=== PATIENT | female | born 1970 | race Caucasian/White ===

== ENCOUNTER → 2021-06-16 08:29 | Outpatient (CLI) | payer OTHER, SELFPAY ==
--- NOTE | 2021-06-16 08:40 | EKG12_ITS ---
Test Reason : PREOP Blood Pressure : / mmHG Vent. Rate : 078 BPM Atrial Rate : 078 BPM P-R Int : 138 ms QRS Dur : 080 ms QT Int : 374 ms P-R-T Axes : 050 004 024 degrees QTc Int : 426 ms Normal sinus rhythm Normal ECG Confirmed by NALINI GALLEGOS, YULIA ([id number]), editorial project manager ROSA WINTER ([id number]) on 06/17/2021 7:34:25 AM Referred By: Iwona Cope Confirmed By:YULIA GAYLE MD
--- NOTE | 2021-06-16 08:58 | RAD_ITS ---
STUDY: X-RAY CHEST REASON FOR EXAM: Female, 50 years old. Preoperative x-ray TECHNIQUE: PA and lateral views of the chest. COMPARISON: None. FINDINGS: The lungs are clear and expanded. There is no demonstrated pleural abnormality. Normal size heart. Normal mediastinum and dameon. Normal visualized pulmonary arteries. Normal visualized aortic arch and descending thoracic aorta. Normal visualized thoracic spine. Normal visualized ribs, clavicles, and shoulders. There is no demonstrated abnormality of the visualized soft tissue structures of the upper abdomen. RAD/Chest PA and Lateral IMPRESSION: Normal x-ray examination of the chest. Electronically Signed: Kellen Alejandra MD at 12:44 EDT Tel , Service support ,
[2021-06-16 09:26] LABS: Absolute Lymphocyte Count 1.82 X10^3/uL (0.83-4.51); Basophil# 0.04 X10^3/uL; Basophil% 0.5 % (0-1); Eosinophil# 0.12 X10^3/uL; Eosinophils% 1.4 % (0-5); Hematocrit 40.7 % (37-47); Hemoglobin 13.3 g/dL (12.0-15.0); Lymphocyte # 1.82 X10^3/ul (0.83-4.51); Lymphocyte % 20.8 % (19-41); Mean Corp Hgb Conc 32.7 g/dL (32-36); Mean Corpuscular Hgb 29.3 pg (27.0-32.0); Mean Corpuscular Volume 89.6 fL (81-99); Mean Platelet Vol. 10.5 fl (6.2-12.0); Monocyte# 0.78 X10^3/uL; Monocyte% 8.9 % (0-10); NRBC Flagged by Analyzer 0 % (0-5); Neutrophil # 5.98 X10^3/uL (2.7-7.7); Neutrophil % 68.2 % (47-70); Platelet Count 288 K/mm3 (150-450); RBC Distribution Width CV 14.4 % (11.6-14.6); RBC Distribution Width SD 47.7 fl (35.1-43.9); Red Blood Count 4.54 M/mm3 (4.2-5.4); White Blood Count 8.8 K/mm3 (4.4-11.0)
[2021-06-16 10:00] LABS: Anion Gap 6 (5-15); BUN 21 mg/dL (7-18); BUN/Creat Ratio 24.6 RATIO (10-20); Calcium,Total 8.9 mg/dL (8.5-10.1); Chloride 106 mmol/L (98-107); Creatinine, Serum 0.85 mg/dL (0.55-1.02); EST Glomerular Filtration Rate 74 mL/min (>60); Est Glom Filt Rate - Afr Amer 90 mL/min (>60); Glucose 95 mg/dL (74-106); Potassium 3.8 mmol/L (3.5-5.1); Sodium Level 140 mmol/L (136-145)
== END ==
PROVIDERS: PCP Family Medicine; Referring Provider Physician Assistant Surgical; Visit Provider Physician Assistant Surgical
DX: Z01.818 Encounter for other preprocedural examination (principal); Z01.810 Encounter for preprocedural cardiovascular examination; Z01.811 Encounter for preprocedural respiratory examination; Z11.59 Encounter for screening for other viral diseases
CPT/HCPCS: 36415; 71046; 80048; 85025; 87635; 93005; C9803; U0005; U0003

== ENCOUNTER → 2023-10-18 | Outpatient (CLI) | payer OTHER, SELFPAY ==
--- NOTE | 2023-10-18 07:23 | CT_ITS ---
CT RIGHT LOWER EXTREMITY WITH 3-D IMAGING CLINICAL INDICATION: OSTEOARTHRITIS RIGHT KNEE *CARYN PROTOCOL* TECHNIQUE: Axial CT images of the right lower extremity (including right hip, right knee, and right ankle) was performed without IV contrast material. Coronal and sagittal reformats were provided. RADIATION DOSAGE (If Supplied By Facility): CTDIvol = ( 19.3 ) mGy, DLP = ( 1355.62 ) mGycm COMPARISON: No relevant prior comparison study available. FINDINGS: Bones: Unremarkable right hip joint. There is tricompartment degenerative arthrosis of the right knee, most severe in the medial femorotibial compartment, where there is joint space narrowing, marginal osteophyte formation, and subchondral sclerosis. Unremarkable right ankle. Osseous structures are normal without evidence of fracture or dislocation. No lytic or blastic osseous masses. Soft Tissues: There is a tiny right knee joint effusion. The deep soft tissue structures are unremarkable. The superficial soft tissues are unremarkable without evidence of edema, hematoma, or foreign body. CT/Extremity Lower without Contra IMPRESSION: Tricompartment degenerative arthrosis of the right knee, most severe in the medial femorotibial compartment. Tiny right knee joint effusion. Electronically Signed: Slava Casey MD at 8:09 EST ,
--- OUTSIDE RECORDS SUMMARY | 2023-10-18 07:23 | XMS RPT_ITS | CCD ---
Author Name Unknown Address [address] [place] [address] Organization [facility] Care Team Providers Care [employer] Officer Name Role Phone DENNY DAVIS DO Admitting Unavailable DENNY DAVIS DO Attending Unavailable DENNY DAVIS DO Primary Care Unavailable TICO YUAN Consulting Unavailable TICO YUAN Referring Unavailable PROVIDER, UNKNOWN Consulting Unavailable PROVIDER, UNKNOWN Consulting Unavailable PROVIDER, UNKNOWN Consulting Unavailable TICO YUAN Consulting Unavailable AVILA WARNER DR Attending Unavailable AVILA WARNER DR Primary Care Unavailable AVILA WARNER DR Admitting Unavailable PROVIDER, UNKNOWN Consulting Unavailable PROVIDER, UNKNOWN Consulting Unavailable PROVIDER, UNKNOWN Consulting Unavailable Tico Yuan MD Unavailable [facility] hand, . . Unavailable Dr. Víctor Leslie DDS Unavailable [facility], . [facility] office Unavailable Vincenzo GALLEGOS, Dr. Bullard ([facility]) A Unavail able [facility] Unavailable Angela SALVADOR, Liliane Unavailable Ankit DEAN, Ayesha Dangelo Unavailable Katya Almaraz LPN Unavailable Unavailable Walter Shepherd MD Unavailable Keenan Solo PA-C Unavailable [phone] Grace Garcia MA Unavailable Unavailable Lili Downey LPN Unavailable Unavailable Damian CAMPBELL, Denise Velez Unavailable Unavaila Sabine Bergman PA-C Unavailable Naye Valdez Unavailable Heather Lauren LPN Unavailable Unavailab dionne Mcleod MA Lili Unavailable Unavailable Brando SALVADOR, Soumya Unavailable Unavailabl e Unavailable Unavailable Medications Current Medications Medication Drug Class(es) Dates Sig (Normalized) Sig (Original) Ascorbic Acid (1 source) Vitamin C Vitamin C ; angela y benzonatate 100 mg oral capsule (1 source) Non-narcotic Antitussive Start: 10-14-2022 Tessalon Perles 100 mg capsule ; 1 (one) capsule three times daily as needed for cough for 0 days Quantity: 30 {Capsule} Refills: 0 Ordered: 14-Oct-2022 PHIL Garcia Start: 14-Oct-2022 Comments: Medication taken as needed. swallow whole Completed/Discontinued Medications Medication Drug Class(es) Dates Sig (Normalized) Sig (Original) ALPRAZolam 1 mg oral tablet (2 sources) Benzodiazepine Start: 11-17-2016 End: 12-24-2020 take 1 tablet by mouth three times daily as needed Xanax 1 MG Oral Tablet ; 1 (one) Tablet three times a day as needed for 0 days Quantity: 90 {Tablet} Refills: 0 Ordered: 24-Dec-2020 MODESTO Lauren Heather John Start: 17-Nov-2016 End: 24-Dec-2020 Status: Inactive Comments: Medication taken as needed. wmOARRS 11/17/16 Problems Active Problems Problem Classification Problem Date Documented Da te Episodic/Chronic Acute bronchitis (2 sources) Acute bronchitis; Translations: [Acute bronchitis, unspecified] 11-21-2015 Episodic Anxiety disorders (9 sources) Generalized anxiety disorder; Translations: [Generalized anxiety disorder] 04-02-2023 Chronic Chronic obstructive pulmonary disease and bronchiectasis (5 sources) Bronchitis; Translations: [Bronchitis, not specified as acute or chronic] 02-07-2020 Episodic Headache; including migraine (2 sources) Migraine; Translations: [Migraine, unspecified, not intractable, without status migrainosus] 04-02-2023 Chronic Joint disorders and dislocations; trauma-related (3 sources) Dislocation of temporomandibular joint; Translations: [Dislocation of jaw, unspecified side, initial encounter] 02-07-2020 Episodic Malaise and fatigue (2 sources) Fatigue; Translations: [Other fatigue] 04-21-2022 Episodic Menopausal disorders (7 sources) Disorder associated with menstruation AND/OR menopause; Translations: [Unspecified menopausal and perimenopausal disorder] 04-02-2023 Chronic Mood disorders (2 sources) Depressive disorder; Translations: [Depressive disorder, not elsewhere classified] 06-27-2012 Chronic Open wounds of extremities (2 sources) Laceration of finger; Translations: [Laceration without foreign body of unspecified finger without damage to nail, initial encounter] 12-20-2020 Episodic Other aftercare (7 sources) Long-term (current) use of other medications 04-01-2012 Episodic Other eye disorders (3 sources) Disorder of eyelid; Translations: [Unspecified disorder of eyelid] 04-07-2022 Episodic Other female genital disorders (3 sources) Other disorders of menstruation and other abnormal bleeding from female genital tract 04-07-2022 Chronic Other injuries and conditions due to external causes (3 sources) Injury of ankle; Translations: [Unspecified injury of unspecified ankle, initial encounter] 02-07-2020 Episodic Other lower respiratory disease (2 sources) Cough; Translations: [Cough] 04-02-2023 Episodic Other nervous system disorders (2 sources) Ulnar neuropathy; Translations: [Lesion of ulnar nerve, unspecified upper limb] 12-29-2012 Chronic Other nutritional; endocrine; and metabolic disorders (2 sources) Obesity; Translations: [Obesity, unspecified] 04-07-2022 Chronic Other screening for suspected conditions (not mental disorders or infectious disease) (2 sources) Patient encounter status; Translations: [Encounter for screening for lipoid disorders] 04-02-2023 Episodic Other skin disorders (2 sources) Eruption; Translations: [Rash and other nonspecific skin eruption] 04-07-2022 Episodic Other skin disorders (3 sources) Skin lesion; Translations: [Disorder of the skin and subcutaneous tissue, unspecified] 02-07-2020 Episodic Other upper respiratory infections (9 sources) Maxillary sinusitis; Translations: [Chronic maxillary sinusitis] 12-29-2012 Chronic Other upper respiratory infections (3 sources) Acute sinusitis; Translations: [Acute sinusitis, unspecified] 09-26-2010 Episodic Residual codes; unclassified (2 sources) Colon cancer screening declined; Translations: [Procedure and treatment not carried out because of patient's decision for unspecified reasons] 04-02-2023 Episodic Residual codes; unclassified (3 sources) Insomnia; Translations: [Insomnia, unspecified] 12-29-2012 Episodic Residual codes; unclassified (2 sources) Mammogram declined; Translations: [Procedure and treatment not carried out because of patient's decision for unspecified reasons] 06-04-2022 Episodic Unclassified (1 source) Number of Children 04-02-2023 Past or Other Problems Problem Classification Problem Date Documented Da te Episodic/Chronic Unclassified (1 source) Headache - The onset of the headache has been acute and has been occurring in a persistent pattern for 3 days. The course has been increasing in severity. The headache is characterized as severe, pounding, throbbing and a pressure sensation. The headache is experienced any time of the day (no diurnal variation). The headache is described as being located in the left side. The symptoms are aggravated by noise, bright light, fatigue, reading and neck movement, but not by alcohol or trauma. The symptoms have been associated with depression, eye pain, flashing lights, migraine in the past (Patient reports a history of migraines that have been poorly controlled with OTC medications. She reports a migraine as often as once a week.), nausea, neck pain, neck stiffness and vomiting, while the symptoms have not been associated with anxiety, blurring of vision, confusion, ear pain, eye congestion, fever, focal neurological deficit, head trauma, hypertension, insomnia, myalgias, nasal discharge/stuffy nose, sore throat, swelling over temporal areas, tenderness over sinuses, tenderness over temporal areas, unilateral numbness or vertigo. Note for Headache : Patient has been using ice packs and Excedrin with no relief of symptoms. 04-02-2023 Unclassified (1 source) Cold Symptoms - Symptoms include sneezing, nasal congestion, sore throat, dry cough and wheezing, but do not include ear pain, fever, chills or headache. The onset was sudden 1 month(s) ago. The symptoms occur constantly. The patient describes this as moderate in severity and unchanged (cough is getting slightly better). Current treatment includes non-prescription cold medication. 10-14-2022 Unclassified (1 source) Cough - The onset of the cough has been acute and has been occurring in a persistent pattern for 4 days. The course has been increasing. The cough is characterized as dry. The cough occurs mainly at night. Associated symptoms include nasal congestion, sinus discharge, sinus pressure and sore throat. Note for Cough : Was started on cephalexin this weekend. 09-15-2022 Unclassified (1 source) Mediation consultation - Stopped Prempro 4 months ago. Started with migraines, hot flashes, weight gain. Would like to go back on Prempro. The cost was too high, tried supplements but this was not successdful. 04-07-2022 Unclassified (1 source) Menopause - The onset of menopause has been acute and has been occurring in an intermittent pattern for 10 years. The course has been increasing. The symptoms are described as moderate. The first day of the last menstrual period was : (years ago). The symptoms include flushing, sweating, headaches, vaginal dryness, depression, anxiety and insomnia. Note for Menopause : Has been gaining weight. reviewed by [facility] 12-24-2020 Unclassified (1 source) Skin lesion - The skin lesion has been occurring for 1 month. It has been increasing in size. The lesion is characterized as red and raised above the skin. The lesion is located on the neck (on the left side). Note for Skin lesion : Has noticed that her gland on the left side of neck is larger than the right side. Area will be painful if touched or apply pressure. Will be itchy at times. States that for the past few years if she is out in the sun, will get welts on her upper chest. reviewed by [facility] 12-20-2020 Unclassified (1 source) Follow up consultation - The patient is here to follow-up after Emergency Room/Urgent Care ([facility] with laceration to the distal volar right index finger.) on : (02-03-20). Note for Consultation follow-up : She was started on ATBx but got diarhea with first 2 doses so she stopped it. 02-07-2020 Unclassified (1 source) Jaw pain - The onset of the jaw pain has been sudden (pt was eating a piece of pizza last wednesday and her jaw locked up on the left side) and has been occurring in a persistent pattern for 1 week. The course has been constant. The pain affects the left side of jaw . Note for Jaw pain : Patient was seen by her Dentist, was advised to try heat compress and take Tylenol/Ibuprofen. Pt has also taken leftover muscle relaxer that has helped to relieve the pain. Is unable to bite down completely on the left side of mouth. The left cheek is swollen and tender to touch.She has had problems since she was young with jaw locking at times. She will wiggle her jaw and unlock it. 01-06-2019 Unclassified (1 source) Ankle pain - The onset of the ankle pain has been acute and has been occurring in a persistent pattern for 5 weeks. The course has been constant. The pain is characterized as a moderate sharp stabbing. The pain is in the left ankle and is described as being located in the entire ankle. The pain is aggravated by physical activity and stairs. Note for Ankle pain : Went to ER a few days after injury and was diagnosed with ankle sprain. Her foot was visbly deformed and she had to move it back into place . 05-31-2018 Unclassified (1 source) Cold Symptoms - Symptoms include sneezing, nasal congestion, runny nose, ear fullness, scratchy throat, dry cough, productive cough, general malaise, headache and facial pain, but do not include purulent discharge, ear pain, fever or chills. The onset was gradual 1 week(s) ago. The symptoms occur constantly. The patient describes this as moderate in severity and worsening. Current treatment includes acetaminophen and NSAIDs. Risk factors include smoking. The patient has been exposed to an individual with similar symptoms. Medical history includes seasonal allergies, but patient denies history of asthma or tonsillectomy. Note for Upper respiratory infection : reviewed by B 01-22-2017 Unclassified (1 source) Cold Symptoms - Symptoms include sneezing, nasal congestion, runny nose, ear pain (off and on), sore throat, dry cough (dry later in the day), productive cough (productive in the morning) and headache, but do not include fever, chills, general malaise or facial pain. The onset was gradual 3 month(s) ago. The symptoms occur constantly. The patient describes this as moderate in severity and worsening. Note for Upper respiratory infection : Was treated 11-21-15 for bronchitis with Cephalexin. Symptoms improved slightly at that time but never completely cleared up. reviewed by [facility] 01-15-2016 Unclassified (1 source) Cold Symptoms - Symptoms include nasal congestion, runny nose, ear fullness, sore throat, dry cough, chills and headache. The onset was sudden 1 week(s) ago. The symptoms occur constantly. The patient describes this as moderate in severity and worsening. Current treatment includes an oral decongestant. Risk factors include smoking, but do not include child in daycare. The patient has been exposed to an individual with similar symptoms and an individual with strep. 11-21-2015 Unclassified (1 source) Punch Biopsy - Pt here for punch biopsy of lesion on lateral aspect of right lower leg. Has had spot for about 1 year. It has gotten bigger/ She states that the color changes throughout the day. It will start out as clear and then by end of day it is red. It has never bled. see previous. 09-16-2015 Unclassified (1 source) Preoperative Clearance - Surgical procedure(s) planned: other (Bilateral Upper Lid Blephs). Date of procedure: (March 29, 2015) Surgeon: (Harinder Rodgers) and Location of procedure: ([facility] [place]) There have been no problems with general anesthesia or blood/blood products. Prosthetics include eye glasses. Note for Pre-operative clearance : reviewed by [facility] 03-15-2015 Unclassified (1 source) Eye Symptoms - The onset of the eye symptoms has been acute and has been occurring in an increasing pattern for months. The course has been gradually worsening. The eye symptoms are described as moderate and involve the left eye. The symptoms are described as pain and swelling. Note for Eye symptoms : reviewed by [facility] 12-11-2014 Unclassified (1 source) Preoperative Clearance - Date of procedure: (08-10-13) Surgeon: (Dr Lawrence) and Location of procedure: ([facility]) There have been no problems with general anesthesia or blood/blood products. Prosthetics include eye glasses. Note for Pre-operative clearance : Would also like to discuss medication change for depression. Is currently on Prozac 40mg. Depression is getting worse and has had increased fatigue. Is also gaining weight. Lexapro and cymbalta were tried int hepast but did not work well. 07-26-2013 Unclassified (1 source) Cold Symptoms - Symptoms include nasal congestion, runny nose, ear pain, ear fullness, sore throat, scratchy throat, hoarseness, productive cough, fever (102 yesterday.), chills, general malaise, headache and facial pain. The onset was sudden 3 day(s) ago. The symptoms occur constantly. The patient describes this as moderate in severity and worsening. The patient is not currently being treated for this problem. The patient has been exposed to an individual with an upper respiratory infection (At work.). Medical history includes seasonal allergies, but patient denies history of asthma. Note for Upper respiratory infection : reviewed by [facility] 02-28-2013 Unclassified (1 source) Cold Symptoms - Symptoms include sneezing, nasal congestion, runny nose, sore throat, productive cough and facial pain (pressure), but do not include fever or chills. The onset was gradual 5 day(s) ago. The symptoms occur constantly. The patient describes this as moderate in severity and worsening. Current treatment includes allergy medications. The patient has been exposed to an individual with similar symptoms. Medical history includes seasonal allergies and recurrent sinusitis, but patient denies history of recurrent strep pharyngitis, asthma, tonsillectomy or recurrent ear infections. Note for Upper respiratory infection : reviewed by [facility] 06-27-2012 Unclassified (1 source) Cold Symptoms - Symptoms include sneezing, nasal congestion, runny nose (nasal drainage is clear), ear pain (left), ear fullness, sore throat (left side), productive cough (phlegm is green and very thick) and facial pain, but do not include fever or headache. The onset was sudden 4 day(s) ago. The symptoms occur constantly. The patient describes this as moderate in severity and worsening. Current treatment includes non-prescription cold medication (sinus daytime and nightime, belinda-D, aleve, and cheryl seltzer). 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 Medical history includes seasonal allergies and recurrent sinusitis, but patient denies history of recurrent strep pharyngitis or asthma. 11-26-2011 Unclassified (1 source) Irregular bleeding - Started spotting 3 days ago along with abdominal cramping. Has not had a peroid for 5 years. Pt had an ablation due to heavy bleeding. No cancer history. No other menopausal sx. PAPs have always been normal ( last one was 09/15/10 ) 09-25-2011 Unclassified (1 source) Hand pain - The onset of the hand pain has been sudden following no specific incident and has been occurring in a persistent pattern for 6 weeks. The course has been worsening. The hand pain is characterized as a moderate sharp stabbing. The hand pain is described as being located in the ulnar aspect of hand, ring finger and small finger. The hand pain is aggravated by physical activity. The symptoms have been associated with muscle swelling. 12-29-2010 Unclassified (1 source) Well adult female - Patient has not had a cholesterol screening. There has been no glucose screening. Patient has not had a Zostavax vaccine. Patient has not had a Pneumovax vaccine. Patient has not received a recent influenza vaccine. Patient has not been immunized against Tetanus. Note for Well adult female : pt is here for yearly exam, is not having period after procedure that was done in 2006. pt has no complaints at this time Had labs done at work and says cholesterol was good 09-15-2010 Unclassified (1 source) [ADDITIONAL REASON] Cold Symptoms - Symptoms include ear pain (swollen, sore glands), but do not include fever. The onset was gradual 3 day(s) ago. The patient describes this as worsening. The patient is not currently being treated for this problem. 09-15-2010 Results Test Name Value Interpretation Reference Range Facil ity Vital Signs Date Time Vital Sign Value Performing Clinician Jael fitch 04-02-2023 10:24-0400 Body height 157.48 cm Grace Garcia MA [facility], [facility]. 04-02-2023 10:24-0400 Body mass index (BMI) [Ratio] 37.91 kg/m2 Grace Garcia MA [facility], [facility]. 04-02-2023 10:24-0400 Body surface area Derived from formula 1.94 m2 Grace Garcia MA [facility], [facility]. 04-02-2023 10:24-0400 Body weight 94.01 kg Grace Garcia MA [facility], [facility].; [facility] 04-02-2023 10:24-0400 Diastolic blood pressure 86 mm[Hg] Grace Garcia MA [facility], [facility].; [facility], [facility]. Encounters Encounter Date Encounter Type Care Provider Facility Start: 04-02-2023 End: 04-02-2023 Office outpatient visit 15 minutes Tico Yuan MD Work Phone: [facility]. Start: 10-14-2022 End: 10-14-2022 Office outpatient visit 15 minutes Tico Yuan MD Work Phone: [facility]. Start: 09-15-2022 End: 09-15-2022 Office outpatient visit 15 minutes Tico Yuan MD Work Phone: [facility]. Start: 06-30-2022 End: 06-30-2022 Medication Tico Yuan MD Work Phone: [facility]. Start: 06-04-2022 End: 06-03-2022 Erroneous Entry Tico Yuan MD Work Phone: [facility] Start: 06-04-2022 End: 06-04-2022 Patient encounter procedure Tico Yuan MD Work Phone: [facility]; [facility]. Start: 06-04-2022 End: 06-04-2022 Periodic preventive med est patient 40-64yrs Tico Yuan MD Work Phone: [facility]. Start: 04-21-2022 End: 04-21-2022 Orders Tico Yuan MD Work Phone: [facility]. Start: 04-07-2022 End: 04-07-2022 Office outpatient visit 10 minutes Tico Yuan MD Work Phone: [facility] Start: 04-01-2021 End: 04-01-2021 ambulatory TICO YUAN [facility] Start: 12-25-2020 End: 12-25-2020 Medication Tico Yuan MD Work Phone: [facility] Start: 12-24-2020 End: 12-24-2020 Office outpatient visit 15 minutes Tico Yuan MD Work Phone: [facility]. Start: 12-20-2020 End: 12-20-2020 Office outpatient visit 15 minutes Tico Yuan MD Work Phone: [facility]. Start: 02-07-2020 End: 02-07-2020 Office outpatient visit 15 minutes Tico Yuan MD Work Phone: [facility]. Start: 02-07-2020 End: 02-07-2020 Telephone follow-up Tico Yuan MD Work Phone: [facility]. Start: 02-03-2020 End: 02-03-2020 Emergency department patient [facility] Start: 01-09-2019 End: 01-09-2019 Orders Tico Yuan MD Work Phone: [facility]. Start: 01-06-2019 End: 01-06-2019 Office outpatient visit 15 minutes Tico Yuan MD Work Phone: [facility]. Start: 06-07-2018 End: 06-07-2018 Orders Tico Yuan MD Work Phone: [facility]. Start: 05-31-2018 End: 05-31-2018 Office outpatient visit 15 minutes Tico Yuan MD Work Phone: [facility]. Start: 04-28-2018 End: 04-28-2018 Telephone follow-up Tico Yuan MD Work Phone: [facility]. Start: 01-22-2017 End: 01-22-2017 Office outpatient visit 15 minutes Tico Yuan MD Work Phone: [facility] [facility] Start: 01-15-2016 End: 01-15-2016 Office outpatient visit 15 minutes Tico Yuan MD Work Phone: [facility] [facility] Start: 11-21-2015 End: 11-21-2015 Medication Tico Yuan MD Work Phone: [facility]. Start: 11-21-2015 End: 11-21-2015 Office outpatient visit 15 minutes Tico Yaun MD Work Phone: [facility]. Start: 09-16-2015 End: 09-16-2015 Office outpatient visit 15 minutes Tico Yuan MD Work Phone: [facility] Start: 09-13-2015 End: 09-13-2015 Office outpatient visit 15 minutes Tico Yuan MD Work Phone: [facility]. Start: 08-19-2015 End: 08-19-2015 Medication Tico Yuan MD Work Phone: [facility]. Start: 03-15-2015 End: 03-15-2015 Office outpatient visit 15 minutes Tico Yuan MD Work Phone: [facility] Start: 03-15-2015 End: 03-15-2015 Pre-operative examination, unspecified Tico Yuan MD Work Phone: [facility].; [facility]. Start: 12-11-2014 End: 12-11-2014 Orders Tico Yuan MD Work Phone: [facility]. Start: 12-11-2014 End: 12-11-2014 Office outpatient visit 15 minutes Tico Yuan MD Work Phone: [facility]. Start: 02-12-2014 End: 02-12-2014 Medication Tico Yuan MD Work Phone: [facility]. Start: 02-12-2014 End: 02-12-2014 Medication Tico Yuan MD Work Phone: [facility]. Start: 01-23-2014 End: 01-23-2014 Medication Tico Yuan MD Work Phone: [facility]. Start: 10-30-2013 End: 10-30-2013 Medication Tico Yuan MD Work Phone: [facility]. Start: 07-26-2013 End: 07-26-2013 Patient encounter procedure Tico Yuan MD Work Phone: [facility] Start: 07-26-2013 End: 07-26-2013 Pre-operative examination, unspecified Tico Yuan MD Work Phone: [facility]. Start: 02-28-2013 End: 02-28-2013 Patient encounter procedure Tico Yuan MD Work Phone: [facility]. Start: 12-23-2012 End: 12-23-2012 Medication Tico Yuan MD Work Phone: [facility]. Start: 06-27-2012 End: 06-27-2012 Patient encounter procedure Tico Yuan MD Work Phone: [facility]. Start: 04-01-2012 End: 04-01-2012 Medication Tico Yuan MD Work Phone: [facility]. Start: 12-29-2011 End: 12-29-2011 Medication Tico Yuan MD Work Phone: [facility]. Start: 11-26-2011 End: 11-26-2011 Patient encounter procedure Tico Yuan MD Work Phone: [facility]. Start: 10-06-2011 End: 10-06-2011 Orders Tico Yuan MD Work Phone: [facility]. Start: 09-25-2011 End: 09-25-2011 Patient encounter procedure Tico Yuan MD Work Phone: [facility]. Start: 07-01-2011 End: 07-01-2011 Medication Tico Yuan MD Work Phone: [facility]. Start: 03-30-2011 End: 03-30-2011 Medication Tico Yuan MD Work Phone: [facility]. Start: 01-05-2011 End: 01-05-2011 Medication Tico Yuan MD Work Phone: [facility]. Start: 12-29-2010 End: 12-29-2010 Patient encounter procedure Tico Yuan MD Work Phone: [facility]. Start: 11-21-2010 End: 11-21-2010 Medication Tico Yuan MD Work Phone: [facility]. Start: 11-21-2010 End: 11-21-2010 Historical Summary Tico Yuan MD Work Phone: [facility] Start: 11-03-2010 End: 11-03-2010 Medication Tico Yuan MD Work Phone: [facility]. Start: 09-26-2010 End: 09-26-2010 Medication Tico Yuan MD Work Phone: [facility] Start: 09-16-2010 End: 09-16-2010 Laboratory examination ordered as part of a routine general medical examination Naye Valdez Work Phone: [facility]; [facility]. Start: 09-16-2010 End: 09-16-2010 Orders Tico Yuan MD Work Phone: [facility]. Start: 09-16-2010 End: 09-16-2010 Medication Tico Yuan MD Work Phone: [facility]. Start: 09-15-2010 End: 09-15-2010 Patient encounter procedure Tico Yuan MD Work Phone: [facility] Start: 09-15-2010 End: 09-15-2010 Routine gynecological examination Tico Yuan MD Work Phone: [facility]; [facility]. Start: 07-14-2010 End: 07-14-2010 Medication Tico Yuan MD Work Phone: [facility]. Start: 07-11-2010 End: 07-11-2010 Nursing evaluation of patient and report Tico Yuan MD Work Phone: [facility] Admission to [facility]. Patient encounter procedure Grace Garcia MA [facility].; [employer] Routine gynecologica l examination Tico Yuan MD Work Phone: [facility].; [facility]. Procedures Date Procedure Procedure Detail Performing Clinician Start: 06-04-2022 End: 06-04-2022 Depression screening Tico Yuan MD Work Phone: Start: 06-04-2022 End: 06-04-2022 Pos clin depres scrn f/u doc Tico Yuan MD Work Phone: Start: 05-04-2022 End: 05-04-2022 Lab findings surveillance Grace Velez Plan of Treatment Date Care Activity Detail Author Start: 10-25-2023 Patient encounter procedure Medical; EXTENDED RTN - pre-op knee surg 11/10 DEEDEE Saenz 10/18 @ [facility] Start: 25-Oct-2023 8:20 MD Tico Yuan Appointment Request [facility] Start: 05-31-2018 End: 05-31-2018 Mri any jt lower extrem w/o contrast matrl Ankle,Left MRI W/O Contrast Date: 31-May-2018 [facility]; [facility] Immunizations Immunization Date Immunization Notes Care Provider Fa cility 02-03-2020 tetanus toxoid, redu jennifer diphtheria toxoid, and acellular pertussis vaccine, adsorbed Tico Yuan MD Work Phone: [employer] Payers Date Payer Category Payer Unknown [id number] 1970 Unknown [id number] Unknown [id number] Unknown [id number] Unknown [employer] Social History Date Type Detail Facility End: 06-04-2022 Alcohol Use Alcohol Use [facility] [employer] [facility]. Exercise History: Exercise History: ; Lig ht. [facility].; [facility]. Tobacco Use: Tobacco Use: ; S mokes < 1 pack of cigarettes per day. [facility].; [employer] [facility] [employer]. Work Phone: Smokes < 1 pack of cigarettes per day [facility]. Work Phone: Summary Purpose Family History Breast Cancer Status:Active Comments:Paterna l Aunt. Cerebrovascular Accident Status:Active Comment s:Negative Family History Of. Coronary Artery Disease Status:Active Comments :Father. Paternal Grandmother. Diabetes Mellitus Type II Status:Active Commen ts:Negative Family History Of. Hypertension Status:Active Comments:Negativ e Family History Of. Hypothyroidism Status:Active Comments:Mother. Prostate Cancer Status:Active Comments:Father. Advance Directives No Advanced Directives Records FoundNo Advanced Directives Records FoundNo Advanced Directives Records Found Additional Source Comments INFORMATION SOURCE (unrecogn ized section and content) DATE CREATED AUTHOR AUTHOR'S ORGANIZ ATION 04/02/2021 [facility] DATE CREATED AUTHOR AUTHOR'S ORGANIZ ATION 06/10/2022 [facility] FOR RECORDS PERTAINING TO PATIENTS WHO ARE OR HAVE BEEN ENROLLED IN A CHEMICAL DEPENDENCY/SUBSTANCEABUSE PROGRAM, SOME INFORMATION MAY BE OMITTED. This clinical summary was aggregated from multiple sources. Caution should be exercised in using it in the provision of clinical care. This summary normalizes information from multiple sources, and as a consequence, information in this document may materially change the coding, format and clinical context of patient data. In addition, data may be omitted in some cases. CLINICAL DECISIONS SHOULD BE BASED ON THE PRIMARY CLINICAL RECORDS. [employer] provides no warranty or guarantee of the accuracy or completeness of information in this document.
[2023-10-18 08:38] LABS: Absolute Lymphocyte Count 2.14 X10^3/uL (0.83-4.51); Absolute Neutrophil Count 6.3 X10^3/uL (2.0-7.7); Basophil# 0.03 X10^3/uL; Basophil% 0.3 % (0-1); Eosinophil# 0.23 X10^3/uL; Eosinophils% 2.4 % (0-5); Hematocrit 42.3 % (37-47); Hemoglobin 13.6 g/dL (12.0-15.0); Lymphocyte # 2.14 X10^3/ul (0.83-4.51); Lymphocyte % 22.3 % (19-41); Mean Corp Hgb Conc 32.2 g/dL (32-36); Mean Corpuscular Volume 87.2 fL (81-99); Mean Platelet Vol. 10.9 fl (6.2-12.0); Monocyte% 9.4 % (0-10); NRBC Flagged by Analyzer 0 % (0-5); Neutrophil # 6.26 X10^3/uL (2.7-7.7); Neutrophil % 65.2 % (47-70); Platelet Count 355 K/mm3 (150-450); RBC Distribution Width CV 14.1 % (11.6-14.6); RBC Distribution Width SD 45.4 fl (35.1-43.9); Red Blood Count 4.85 M/mm3 (4.2-5.4); White Blood Count 9.6 K/mm3 (4.4-11.0)
[2023-10-18 12:48] LABS: Anion Gap 6 (5-15); BUN 24 mg/dL (7-18); BUN/Creat Ratio 28.2 RATIO (10-20); Calcium,Total 9.6 mg/dL (8.5-10.1); Chloride 110 mmol/L (98-107); Creatinine, Serum 0.85 mg/dL (0.55-1.02); EST Glomerular Filtration Rate 74 mL/min (>60); Est Glom Filt Rate - Afr Amer 89 mL/min (>60); Glucose 96 mg/dL (74-106); Potassium 4.2 mmol/L (3.5-5.1); Sodium Level 140 mmol/L (136-145)
[2023-10-18 19:48] LABS: Hemoglobin A1c 5.6 % (3.8-5.6)
== END | disposition home or self-care (01) ==
PROVIDERS: Physician Assistant; PCP Family Medicine; Referring Provider Orthopaedic Surgery; Visit Provider Orthopaedic Surgery
DX: Z01.810 Encounter for preprocedural cardiovascular examination (principal); M17.11 Unilateral primary osteoarthritis, right knee; M25.561 Pain in right knee; Z01.818 Encounter for other preprocedural examination
CPT/HCPCS: 36415; 73700; 80048; 83036; 85025; 93005

== ENCOUNTER → 2023-11-11 | Outpatient (CLI) | payer OTHER, SELFPAY ==
--- NOTE | 2023-11-10 09:30 | KNEE_PTH ---
PATHOLOGY RESULTS PATIENT: CORIE HERNANDEZ LOC: [facility] U#:[id number] AGE/SX: 53/F ROOM: RE11/11/[address]: Dr. Azar Ortega DO : 1970 BED: DIS: 11/11/2023 SPEC #: [id number] RECD: 11/12/23 08:13 STATUS: AMBER REAugie #: [id number] LETY: 11/10/23 09:[address]: Azar Ortega DEPT: SURGICAL PATHOLOGY RECD BY: Mar Doherty ENTERED: 11/12/23 08:13 SP TYPE: TOTAL KNEE OTHR DR: Dr. Joshua Yuan MD [facility] Tissues: Knee, NOS Procedures: Decalcification bone/plaque Surgery Specimen Level IV HEADER OPERATION: Robotic assisted right total knee arthroplasty PRE-OP DIAGNOSIS: Primary osteoarthritis of right knee TISSUE SUBMITTED: Right knee bone and tissue MICROSCOPIC DIAGNOSIS Bone and soft tissue, right knee, total knee replacement/resection: Pieces of bone with degenerative osteoarthritic changes. Fibroadipose tissue, fibroconnective tissue and reactive synovial tissue. [place]:claudio 11/17/2023 MICROSCOPIC DESCRIPTION Slides are reviewed. GROSS DESCRIPTION Received is one container designated right knee bone and tissue. The specimen consists of multiple fragments of quezada-yellow bone measuring in aggregate 10.0 x 8.0 x 3.5 cm. Also in the specimen container are multiple fragments of yellow-white soft tissue measuring in aggregate 9.0 x 7.0 x 3.0 cm. A number of bony fragments contain articular surfaces consistent with tibial plateau and femoral condyle and displaying prominent osteophyte formation and bone erosion. [employer] sections are submitted in two cassettes as follows: 1 - soft tissue, 2 - bone after decalcification. / [place]:claudio 11/12/2023 TC:[facility]: [id number], [id number]
== END | disposition home or self-care (01) ==
LOC: LABSPEC 15:02
PROVIDERS: PCP Family Medicine; Referring Provider Orthopaedic Surgery; Visit Provider Orthopaedic Surgery
DX: M17.11 Unilateral primary osteoarthritis, right knee (principal)
CPT/HCPCS: 88305; 88311

== ENCOUNTER → 2024-09-06 | Outpatient (CLI) | payer OTHER, SELFPAY ==
--- NOTE | 2024-09-06 07:25 | CT_ITS ---
CT LEFT LOWER EXTREMITY WITH 3-D IMAGING CLINICAL INDICATION: Other tear of medial meniscus, current injury, left knee, initial TECHNIQUE: Axial CT images of the left lower extremity (including left hip, left knee, and left ankle) was performed without IV contrast material. Coronal and sagittal reformats were provided. The protocol utilizes one or more of the following dose reduction techniques: automated exposure control, adjustment of mA and/or kV according to patient size, and/or use of iterative reconstruction technique. RADIATION DOSAGE (If Supplied By Facility): CTDIvol = ( 18.76 ) mGy, DLP = ( 1178.55 ) mGycm COMPARISON: No relevant prior comparison study available. FINDINGS: Bones: There is mild degenerative arthrosis of the left hip joint. There is moderate to severe degenerative arthrosis of the medial femorotibial compartment of the left knee with moderate to severe joint space narrowing and subchondral sclerosis. There are old screw tracts in the talus and calcaneus. Osseous structures are intact without evidence of fracture or dislocation. No lytic or blastic osseous masses. Soft Tissues: There is a small left knee joint effusion. The deep soft tissue structures are unremarkable. The superficial soft tissues are unremarkable without evidence of edema, hematoma, or foreign body. CT/Extremity Lower without Contra IMPRESSION: Moderate to severe degenerative arthrosis of the medial femorotibial compartment of the left knee. Small left knee joint effusion. Electronically Signed: Slava Casey MD at 14:58 EST ,
== END | disposition home or self-care (01) ==
LOC: CT 07:24
PROVIDERS: PCP Family Medicine; Referring Provider Specialist; Visit Provider Specialist
DX: S83.242A Other tear of medial meniscus, current injury, left knee, initial encounter (principal)
CPT/HCPCS: 73700

== ENCOUNTER 2024-09-25 05:41 | Day surgery (SDC) | payer OTHER, SELFPAY ==
--- NOTE | 2024-09-06 07:28 | EKG12_ITS ---
Test Reason : PREOP Blood Pressure : */* mmHG Vent. Rate : 76 BPM Atrial Rate : 76 BPM P-R Int : 136 ms QRS Dur : 76 ms QT Int : 370 ms P-R-T Axes : 59 0 36 degrees QTcB Int : 416 ms Normal sinus rhythm Normal ECG Confirmed by Azar Perez ([id number]), index editor JOSEY GALVAN ([id number]) on 09/06/2024 8:28:41 AM Referred By: Rudy Sullivan Confirmed By: Azar Perez
[2024-09-06 08:49] LABS: Absolute Lymphocyte Count 2.06 X10^3/uL (0.83-4.51); Absolute Neutrophil Count 9.7 X10^3/uL (2.0-7.7); Basophil# 0.06 X10^3/uL; Basophil% 0.5 % (0-1); Eosinophil# 0.11 X10^3/uL; Eosinophils% 0.8 % (0-5); Hematocrit 44.2 % (37-47); Hemoglobin 14.1 g/dL (12.0-15.0); Lymphocyte # 2.06 X10^3/ul (0.83-4.51); Lymphocyte % 15.7 % (19-41); Mean Corp Hgb Conc 31.9 g/dL (32-36); Mean Corpuscular Hgb 27.8 pg (27.0-32.0); Mean Platelet Vol. 10.8 fl (6.2-12.0); Monocyte# 1.09 X10^3/uL; Monocyte% 8.3 % (0-10); NRBC Flagged by Analyzer 0 % (0-5); Neutrophil # 9.74 X10^3/uL (2.7-7.7); Neutrophil % 74.4 % (47-70); Platelet Count 347 K/mm3 (150-450); RBC Distribution Width CV 14.5 % (11.6-14.6); RBC Distribution Width SD 46.6 fl (35.1-43.9); Red Blood Count 5.08 M/mm3 (4.2-5.4); White Blood Count 13.1 K/mm3 (4.4-11.0)
[2024-09-06 09:12] LABS: Magnesium 2.2 mg/dL (1.6-2.6)
[2024-09-06 09:30] LABS: Partial Thromboplast Time 25.2 Seconds (24.1-36.2); Prothrombin Time (Protime)PT. 12.9 SECONDS (11.7-14.9)
--- NOTE | 2024-09-15 11:25 | HP.PCM_ITS ---
History and Physical History and Physical Patient Name: Kevin Lugo : 1970From:? PORTIA DEL VALLE PA-C DATE OF PRE-OPERATIVE EXAM: 09/15/2024 DATE OF SURGERY:? 09/25/2024 SCHEDULED PROCEDURE:? Robotic-assisted left total knee arthroplasty HISTORY OF PRESENT ILLNESS: Preoperative history and physical exam was performed on September 15, 2024.? This is a 54-year-old female who has had ongoing left knee pain.? Her pain has been constant, sharp, stabbing, and burning.? Pain is increased with going up and down stairs and walking.? Patient does have past history of right total knee arthroplasty by Dr. Azar Ortega on November 10, 2023.? She is doing well from that procedure.? Patient's pain at worst can reach 10/10 on the left knee.? There is been no trauma or injury.? She has had an MRI which did show meniscus tear and advanced osteoarthritis.? She has attempted conservative measures including rest, ice, heat, elevation and corticosteroid injection with no relief.? She has been through previous physical therapy and home exercises without relief.? She has tried oral medications including meloxicam, diclofenac, Tylenol, and tramadol.? She denies past history of surgery on the left knee.? She has used a cane and brace for the left knee.? Patient states she is currently being treated for a recent sinus infection.? She is currently on Augmentin.? She states her symptoms are nearly resolved.? She is currently afebrile at today's exam.? Patient did have elevated white blood cell count which the primary care provider documents okay to proceed with surgery and will repeat CBC postoperatively.? Patient currently denies any chest pain, shortness of breath, or past history of DVT or pulmonary embolism.? After failing conservative measures and discussing all treatment options, the patient does wish to proceed with a robotic assisted left total knee arthroplasty.? Patient has obtain surgical clearance from the primary care provider Dr. Joshua Yuan.? Patient will be undergoing a trip to [facility] starting tomorrow and she has begun aspirin 81 mg twice daily.? She will do this leading up to the surgery. REVIEW OF SYSTEMS: ROS: Const: Reports anxiety and weight change, but denies anorexia, change in appetite, fever, difficulty sleeping. CV: Denies chest pain, heart murmur, irregular heartbeat and peripheral vascular disease. Resp: Denies asthma, cough, pneumonia, sleep apnea, shortness of breath, tuberculosis and wheezing. GI: Denies constipation, diarrhea, heartburn, nausea, rectal itching, bloody stools and vomiting. : Reports irregular menstrual periods. Denies incontinence. Musculo: Reports leg swelling, pain and trouble walking, but denies weakness. Skin: Reports tattoo, but denies Raynaud's and history of shingles. Neuro: Denies ambulatory dysfunction, dizziness, numbness/tingling and tremor. Psych: Reports anxiety, depression and stress, but denies insomnia and mental illness. Fredy/Lymph: Denies anemia, bleeding/bruising tendency and past transfusion. Reviewed, no changes. PAST MEDICAL HISTORY: Advance Care Plan: No Advance Directives Effective Date: 06/22/2018 PMH: Medical Problems: Arthritis, migraines, seasonal allergies, anxiety Accidents: None Surgical Hx: Tubal Ligation - (1989) @ [facility] Foot Surgery Ligiment - (2007) KARAN? @ [facility] Carpal Tunnel Release RT - (1998) @ [facility] LT Ankle Ligement Repair - (09/22/2018) AEM @ [facility] Diagnostic Ablation - (2006) @ [facility] RT Knee, Arthro. Med. & Lat. Meniscectomy, Chondroplasty MFC,LTP,PFJ - (06/25/2021) Dr Jesús Ortega @ [facility] RT Knee, Total Joint Replacement - (11/10/2023) MSK @ [facility] Anesthesia Complications: Vomiting - intense Assistive Devices: Glasses Reviewed and updated. 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 Personal Habits:? Cigarette Use: Light tobacco smoker (10 or fewer cigarettes/day).Smokeless Tobacco: Never Used Smokeless Tobacco.Alcohol: Occasionally.Drug Use: Denies Use.Enjoy Exercising: Exercises 1-3 X/Week. Reviewed, no changes. VITALS: Ht: 64 Wt: 202lb Wt k.627 BMI: 34.7 BP: 128/76 Pulse: 80 Resp: 16 T: 97.7 T: 36.5C Pain Level: 10 O2SatR: 100 ALLERGIES: No Known Drug Allergy MEDICATIONS: Oxycodone HCL 5 mg 1-2 tablet by mouth every 4 hours as needed, Ondansetron HCL 4 mg 1 tablet by mouth every 8 hours as needed for nausea, Famotidine 20 mg 1 tablet by mouth every day, Tramadol HCL 50 mg 1-2 tablet by mouth every 6 hours as needed pain, Tramadol HCL 50 mg 1-2 by mouth every 6 hours as needed pain, Diclofenac Sodium 75 mg take 1 tablet by mouth every 12 hours, Loratadine 10 mg daily, Melatonin 1 mg 1/2 pill prior to bedtime, by mouth, Excedrin Migraine 250-250-65 mg as needed, Sumatriptan Succinate 50 mg take 1 tablet by mouth at the onset of headache. repeat in 2 hours if no relief., Amoxicillin/Clavulanate Potassium 875-125 mg for sinus infection PRE-OP EXAM: General appearance:NORMAL? Other: Eyes: Conjunctivae and lids: NORMAL? Pupils: ERR Ears, Nose, Mouth, and Throat: NORMAL? Other: Inspection of lips, teeth and gums: NORMAL?? Other: Neck: Examination of neck: no masses noted. Respiratory: Assessment of respiratory effort: NORMAL?? Other: ? Auscultation of lungs: clear to auscultation no wheezes, rhonchi or rales. Cardiovascular:? Auscultation of heart: regular rate and rhythm, no murmurs, gallops or rubs. PHYSICAL EXAMINATION: On exam of the left knee there is no erythema or signs of infection.? Patient has mild effusion.? Tenderness to palpation along the medial joint line.? Range of motion: Lacks 5 full extension to 115 flexion.? Stable to varus/valgus stress test, stable anterior/posterior drawer exam.? Crepitus with range of motion.? She does walk with an antalgic gait. IMAGING STUDIES: Previous x-rays of the left knee and MRI did reveal a medial meniscus tear with advanced grade III/IV IMPRESSION: 1.? Severe left knee osteoarthritis with varus deformity 2.? Left knee medial meniscus tear 3.? History of migraines 4.? Anxiety 5.? Recent sinus infection: Currently on Augmentin 6.? Obesity with BMI 34.7 PLAN: I did discuss and review with the patient all treatment options including surgical versus nonsurgical options.? Patient does wish to proceed with the above-stated procedure.? Potential risks, benefits, and complications of the procedure were discussed in detail including but not limited to , infection, nerve and blood vessel damage, persistent pain, numbness, tingling, paresthesias, blood clot, pulmonary embolism, and requirement for possible furt her surgery.? The patient expressed full understanding and has no further questions for the doctor.? Patient does agree to proceed with the above-stated procedure and has signed the surgery consent form. POST-OP MEDICATION PLAN: Pain Medications:? Patient was given the following medications at the preoperative visit: Diclofenac, famotidine, Zofran, oxycodone, and tramadol.? Patient was started on tramadol by Daniel Castelan PA-C and she was requesting a refill.? I did advise her that the pharmacy may not fill both prescriptions.? She is also aware that postoperatively when she is using the oxycodone she is not to take tramadol in addition to this.? She voices understanding and agreement.? She was also instructed to group burner machine aspirin 81 mg, extra strength Tylenol, and senna.? She will bring her walker to the hospital.? Patient will follow up postoperatively with primary care physician for additional lab work.? She is aware that if her sinus infection does not continue to improve this may cancel her surgery. DVT Prophylaxis:? Aspirin 81 mg twice daily for 4 weeks postoperatively.? Denies past history of DVT or pulmonary embolism.? Patient has been advised to begin aspirin 81 mg twice daily preoperatively due to current upcoming trip.? She will do this twice daily and stop on September 24, 2024.? She voices understanding. This dictation was created using voice recognition software. Phonetic and/or grammatical errors may exist. ___? I have re-examined the patient.? There are no clinical changes since date of exam. ___? See progress notes for changes. ___? Dictated on admission Date: ? Time: Signature:
[2024-09-25] VITALS (12 sets, daily range): BP systolic 96–108; BP diastolic 57–68; PULSE 58–99; RESP 16; TEMP 36.2–36.4; O2SAT 95–100; BMI 38.0
[2024-09-25] MEDS: Magnesium 1 GM over 15 mins IV (06:15)
[2024-09-25] MEDS: Acetaminophen 500 MG Tablet 1000 MG PO (06:15)
[2024-09-25] MEDS: Celecoxib 200 MG Capsule 400 MG PO (06:17)
[2024-09-25] MEDS: Gabapentin 600 MG Tablet PO (06:17)
[2024-09-25] MEDS: 0.9% Normal Saline (1000mL) 1,000 ML 999 ML IV ×2 (06:19→08:00)
--- NOTE | 2024-09-25 06:40 | PCM.PRE.AN2 ---
ASA Classification* ASA Classification ASA Classification: 2 Assessment & Plan Anesthesia* Anesthesia Assessment Anesthesia Assessment: Discussed sedation and/or anesthesia options, risks, benefits, and alternatives with patient/parents/legal guardian/POA. Questions invited. The patient/parents/legal guardian/POA seems to understand and agrees to proceed with anesthesia plan. Reviewed the physical assessment, medical history, allergy history and patient home medications list prior to surgery/procedure/anesthetic and documented any changes. Performed airway and anesthesia risk assessments. Anesthesia Type Anesthesia Type: Spinal and Block Anesthesia Focused Assessment* Temperature: 97.6 F Pulse Rate: 76 Blood Pressure: 108/63 Respiratory Rate: 16 Pulse Ox: 100 Airway Assessment Mouth opens: >3 cm Mallampati Score: II Focused Labs Anesthesia Preop lab: CBC WBC 13.1 K/mm3 (4.4-11.0) H 09/06/24 08:10 RBC 5.08 M/mm3 (4.2-5.4) 09/06/24 08:10 Hgb 14.1 g/dL (12.0-15.0) 09/06/24 08:10 Hct 44.2 % (37-47) 09/06/24 08:10 Plt Count 347 K/mm3 (150-450) 09/06/24 08:10 CHEMISTRY Potassium 4.2 mmol/L (3.5-5.1) 10/18/23 08:03 Sodium 140 mmol/L (136-145) 10/18/23 08:03 Magnesium 2.2 mg/dL (1.6-2.6) 09/06/24 08:09 BUN 24 mg/dL (7-18) H 10/18/23 08:03 Creatinine 0.85 mg/dL (0.55-1.02) 10/18/23 08:03 Glucose 96 mg/dL (74-106) 10/18/23 08:03 COAG PT 12.9 SECONDS (11.7-14.9) 09/06/24 08:09 Pre-Assessment Diagnosis/Proposed Procedure Planned Operative Procedure(s): ROBOTIC ASSISTED LEFT TOTAL KNE FARTHROPLASTY Anesthesia History Anesthesia History - millinery blocker: Anesthesia History - millinery blocker Hx Hospitalization No 08/29/24 08:48 Any Problems With Anesthesia Yes: N,V SEVERE/AT END OF 08/29/24 08:48 CASE PATIENT WAS AWAKE Cholinesterase deficiency No 08/29/24 08:48 You/Your Family Experience No 08/29/24 08:48 fever (hyperthermia) with Relationship Recent Exposure to Contagious No 09/25/24 06:04 Disease Does patient have nerve No 08/29/24 08:48 stimulator Patient instructed to have device shut off --Does patient have Pacemaker No 09/25/24 06:04 or ICD? When Was Last Pacemaker Check QUESTION #4 FULL TEXT: You/Your Family Experience fever (hyperthermia) with Anesthesia Last Oral Intake Last Oral intake: Last Oral Intake NPO since 03:30 09/25/24 06:04 Meds taken in AM with sips of No 09/25/24 06:04 water? Meds patient instructed to take am of surgery PONV PONV - millinery blocker: PONV - millinery blocker Female Yes 08/29/24 08:48 HX of Motion Sickness Yes 08/29/24 08:48 HX of N/V After Surgery Yes 08/29/24 08:48 Non-Smoker Yes 08/29/24 08:48 Duration of Surgery greater Yes 08/29/24 08:48 than 60 minutes Number of Risk Factors 5 08/29/24 08:48 PONV Score Severe Risk 08/29/24 08:48 Height & Weight Height & Weight: Anesthesia: Height & Weight Height 5 ft 2 in 09/25/24 06:04 Weight: 94.5 kg 09/25/24 06:04 Body Mass Index (BMI) 38.0 09/25/24 06:04 Respiratory Assessment Respiratory Assessment - millinery blocker: Respiratory Tract Infection Hx - millinery blocker Hx Respiratory Tract Infection No 08/29/24 08:48 STOP Sleep Apnea STOP Sleep Apnea - millinery blocker: STOP Sleep Apnea - millinery blocker Hx Hypertension No 08/29/24 08:48 Hx Sleep Apnea No 08/29/24 08:48 CPAP BIPAP Do you snore loudly (louder No 08/29/24 08:48 than talking or can be heard Do you often feel tired/ No 08/29/24 08:48 fatigued/ sleepy during daytime? Has anyone observed you stop No 08/29/24 08:48 breathing during sleep? STOP Results Negative 08/29/24 08:48 QUESTION #5 FULL TEXT : Do you snore loudly (louder than talking or can be heard through closed doors)? Tobacco Use History Tobacco Use History - millinery blocker: Tobacco Use History - millinery blocker Tobacco Use Smoking Status Current every day smoker 08/29/24 08:48 Hx Tobacco Use Yes 08/29/24 08:48 Years Smoking Packs Smoked per Day Smoking Cessation Date was within the last 15 years Hx Smoking Cessation Date Hx Smoking Cessation Counseling Hematologic Medial History Hematologic Hx - millinery blocker: Hematologic Medical Hx - documentation spec Hx of Blood Transfusion No 08/29/24 08:48 Hx of Transfusion in last 3 No 08/29/24 08:48 Months Date of Last Transfusion (if within last 3 months) Ever experience any problems No 08/29/24 08:48 with transfusion(s)? Specify any problems Hx of Preganancy in last 3 No 08/29/24 08:48 Months Nurse Filling Out Transfusion DSCHRIBER 08/29/24 08:48 & Questions: Date: 08/29/24 08/29/24 08:48 Time: 08:51 08/29/24 08:48 Patient unable to answer at this time (ie. confused, unrespo /Reproduction History /Reproductive History - millinery blocker: /Reproductive Hx- millinery blocker Hx Now No 08/29/24 08:48 Gestational Age (in weeks): EDC: Hx Hx Para Hx Section SAB No 08/29/24 08:48 Active Medications Active Medications: Current Medications Generic Name Dose Route Start Last Admin Trade Name Freq PRN Reason Stop Dose Admin Acetaminophen 1,000 mg 09/25/24 07:30 09/25/24 06:15 Acetaminophen 500 Mg Tablet PO 09/25/24 07:31 1,000 mg X1 ONE Administration Celecoxib 400 mg 09/25/24 07:30 09/25/24 06:17 Celecoxib 200 Mg Capsule PO 09/25/24 07:31 400 mg X1 ONE Administration Sodium Chloride 77.4 ml/ 0 ml 09/25/24 07:30 Ropivacaine 200 mg/ OPERA.SITE 09/25/24 07:31 Epinephrine HCl 0.6 mg/ X1 ONE Ketorolac Tromethamine 30 mg/ Morphine Sulfate 5 mg Dexamethasone Sodium Phosphate 10 mg 09/25/24 07:30 Dexamethasone 10 Mg/Ml Vial IV 09/25/24 07:31 X1 ONE Gabapentin 600 mg 09/25/24 07:30 09/25/24 06:17 Gabapentin 600 Mg Tablet PO 09/25/24 07:31 600 mg X1 ONE Administration Lactated Ringer's 1,000 mls @ 999 mls/hr 09/25/24 07:30 IV 09/25/24 08:30 .Q1H1M ANIA Cefazolin Sodium 2 gm/ Sodium 110 mls @ 150 mls/hr 09/25/24 07:30 Chloride IV 09/25/24 08:13 PREOP ONE Tranexamic Acid 1,000 mg/ 110 mls @ 660 mls/hr 09/25/24 07:30 Sodium Chloride IV 09/25/24 07:39 X1 ONE Tranexamic Acid 1,000 mg/ 110 mls @ 660 mls/hr 09/25/24 07:30 Sodium Chloride IV 09/25/24 07:39 X1 ONE Lactated Ringer's 1,000 mls @ 75 mls/hr 09/25/24 07:30 IV 09/25/24 20:49 .[id number] ANIA Magnesium Sulfate 1 gm/ 102 mls @ 408 mls/hr 09/25/24 07:30 09/25/24 06:15 Dextrose IV 09/25/24 07:44 408 mls/hr X1 ONE Administration Sodium Chloride 1,000 mls @ 999 mls/hr 09/25/24 06:18 09/25/24 06:19 IV 09/25/24 07:18 999 mls/hr .Q1H1M ONE Administration Protocol Insulin Human Lispro 1 - 6 unit 09/25/24 07:30 Insulin Lispro 100 Unit/Ml Insuln.Pen SC 09/25/24 18:00 Q4H PRN PRN BG>/= 180, SEE PROTOCOL Protocol Sodium Chloride 5 - 15 ml 09/25/24 07:30 0.9% Nacl Peripheral Flush Adult/Peds IV UD PRN SALINE FLUSH PFSH Medical History Post-menopausal Wears glasses Anxiety Arthritis Easy bruising Migraine headache Shortness of breath on exertion Smoker History of edema History of pain when walking Home Medications ?Medication ?Instructions ?Recorded ?Last Taken ?Type cholecalciferol (vitamin D3) 25 25 mcg PO DAILY 08/29/24 09/24/24 History mcg (1,000 unit) capsule (Vitamin D3) diclofenac sodium 75 mg 75 mg PO BID 08/29/24 09/20/24 History tablet,delayed release loratadine 10 mg capsule 10 mg PO DAILY 08/29/24 09/20/24 History melatonin 3 mg capsule 3 mg PO QHS 08/29/24 Unknown History sumatriptan succinate 50 mg tablet 50 mg PO PRN PRN migraine headache 08/29/24 Unknown History tramadol 50 mg tablet 50 - 100 mg PO Q6H PRN PRN pain 08/29/24 Unknown History turmeric 400 mg capsule 1,000 mg PO DAILY 08/29/24 09/20/24 History aspirin 81 mg capsule 81 mg PO BID 09/25/24 09/24/24 History Allergy/AdvReac Type Severity Reaction Status Date / Time No Known Allergies Allergy Verified 09/25/24 06:02 Surgical History Hx of total knee arthroplasty Hx of arthroscopic knee surgery History of endometrial ablation History of ankle surgery History of carpal tunnel surgery of right wrist Hx of foot surgery Hx of tubal ligation Social History Smoking Status: Current every day smoker tobacco type: cigarettes Review of Systems (Anesthesia) ROS Narrative System reviewed and no additional complaints, except as documented.
[2024-09-25] MEDS: Cefazolin 2 GM in 0.9% Normal Saline (100mL Bag) 100 ML IV (07:42)
--- NOTE | 2024-09-25 07:45 | KNEE_PTH ---
PATIENT: CORIE HERNANDEZ [place] [facility] [place][id number] AGE/SX: 54/F ROOM: RE09/25/[address]: Dr. Rudy Sullivan MD : 1970 BED: DIS: 09/25/2024 SPEC #: [id number] RECD: 09/25/24 12:43 STATUS: AMBER REAugie #: [id number] LETY: 09/25/24 07:[address]: Rudy Sullivan DEPT: SURGICAL PATHOLOGY RECD BY: Britney Pink ENTERED: 09/25/24 14:17 SP TYPE: TOTAL KNEE OTHR DR: Dr. Joshua Yuan MD Tissues: Knee, NOS Procedures: Decalcification bone/plaque Surgery Specimen Level IV HEADER OPERATION: MARCO, robotic assisted left total knee arthroplasty PRE-OP DIAGNOSIS: Severe left knee osteoarthritis with varus deformity TISSUE SUBMITTED: Left patella and knee resections MICROSCOPIC DIAGNOSIS Bone and soft tissue, left knee, total knee replacement/resection: Pieces of bone with degenerative osteoarthritic changes. Fibroadipose tissue, fibroconnective tissue and reactive synovial tissue. [place]: 10/02/2024 MICROSCOPIC DESCRIPTION Slides are reviewed. GROSS DESCRIPTION Received is one container designated bone and soft tissue left knee. The specimen consists of multiple fragments of quezada-yellow bone measuring in aggregate 10 x 9 x 4.0 cm. Also in the specimen container are multiple fragments of yellow-white soft tissue measuring in aggregate 6 x 4 x 2 cm. A number of bony fragments contain articular surfaces consistent with tibial plateau and femoral condyle and displaying prominent osteophyte formation, eburnation and bone erosion. Color Blender sections are submitted in two cassettes as follows: 1 - soft tissue, 2 and 3 - bone after decalcification. /[place]:aye 09/25/24 TC:5 [facility]: [id number], [id number]
[2024-09-25] MEDS: TXA 1000mg in NS100 100ml (IVPB at Incision) 660 MG IV (07:47)
[2024-09-25] MEDS: dexAMETHasone 10 MG/ML Vial IV (07:56)
[2024-09-25] MEDS: JPS (Morphine 10mg/ml) OPERA.SITE (08:45)
[2024-09-25] MEDS: TXA 1000mg in NS100 100ml (IVPB at Closure) 660 MG IV (08:50)
--- NOTE | 2024-09-25 08:57 | PCM.OPRPT ---
Operative Report (Standard) Operative Information Date of Procedure: 09/25/24 Pre-Operative Diagnosis: Left knee primary osteoarthritis Post-Operative Diagnosis: Left knee primary osteoarthritis Surgery/Procedure Performed: Left total knee replacement vp design: Yes Stopper Grinder: Matheus Castelan Tasks completed by speech language assistant: Other (See operative report) Additional hotel assistant manager?: No Type of Anesthesia: Spinal RN Documented Start/Stop Times: Operation Date: 09/25/24 07:45 Case Time Into Pre-Op 09/25/24 05:45 Anesthesia Start 09/25/24 07:42 Into Room 09/25/24 07:42 Procedure Start 09/25/24 08:07 Procedure End 09/25/24 09:17 Anesthesia End 09/25/24 09:26 Out of Room 09/25/24 09:26 Into Recovery 09/25/24 09:30 Out of Recovery 09/25/24 10:08 Into Phase II Recovery 09/25/24 10:28 Procedure Start Time: 08:07 Procedure Stop Time: 09:17 Select all DRAINS/GRAFTS/IMPLANTS that apply: Prosthetic device (See body of operative report) Prosthetic device details: See body of operative report Special Medications: Standard total joint antibiotics Estimated Blood Loss: 50 mL Fluids Replaced: 1000 mm crystalloid Specimen collected: Yes Description of specimen(s) removed: Bony cuts Description of surgery: Implants used: 1. Tolu size 2 triathlon cruciate retaining distal femoral press-fit component 2. Tolu size 2 press-fit tritanium tibial baseplate 3. [place] X3 10 mm polyethylene 4. [place] X3 32 million asymmetric patella Brief history operative indications: 54-year-old F with history of left knee osteoarthritis with radiographic findings with loss of joint space, osteophyte formation and subchondral sclerosis. Failed conservative measures as mentioned in the H&P. Discussion of total knee arthroplasty as well as risk and benefits were discussed the patient including but not limited to blood loss, DVTs, PEs, neurovascular damage, general risk of anesthesia including loss of life, and stiffness or instability were discussed with patient. Patient demonstrated understanding and was able to sign informed consent. Procedure: On the date of procedure patient's left lower extremity was marked in the preoperative area. The patient was then taken back to the operating room where the patient was placed on the table in the supine position. All bony prominences were identified a well-padded. Anesthesia assumed control of the C-spine and airway and remained controlled throughout the remainder of the procedure. A tourniquet was placed on the left upper thigh and the leg was prepped in a sterile fashion. The surgeon then scrubbed at this time .Upon reentering the room left lower extremity was draped in a standard orthopedic fashion. A timeout was then called and everyone agreed upon the side, the site, the procedure to be performed, patient's identity and antibiotics given. Esmarch bandage was used to exsanguinate the extremity and the tourniquet was placed up to 250 mmHg with the knee in flexion. A midline skin incision was made and sharp dissection was taken down through skin subcutaneous tissue and fat. The standard medial parapatellar incision was made and the patella was subluxed laterally. An Appropriate deep MCL release was done and the fat pad was resected. Our attention was then directed to the patella. The patella was everted and a flat resection was made. The knee was then flexed up in 2 femoral pins were placed inside the incision and 2 tibial pins were placed outside the incision in the medial tibia bicortically. Once this was completed the 2 checkpoints in the femur and tibia were placed. Knee was then flexed up and the bony landmarks were registered. Once this was completed knee was taken through range of motion and manually stressed allowing us to a plan for an appropriate tibial cut. The robotic arm was brought into the field sterilely and checkpoint and saw were registered. Based on the patient's deformity the tibial cut was made neutral to the tibial axis. At this time the tensioner was then placed in the joint and ligament tension was checked at 90 degrees and full extension. Based on the patient's ligamentous tension appropriate adjustments were made to the operative plan and ligament releases were done. Once we were happy with our operative plan with balanced flexion and extension gaps our attention was directed to the femur. The robot was brought into the field sterilely and registered. Posterior condylar cuts, anterior chamfer cuts and anterior cuts were appropriately made for a size 2 femur. When these were completed the saws were switched out in the distal femoral and posterior chamfer cuts were made. Protecting the soft tissue throughout this time. A size 2 tibial base plate was selected. the knee was flexed to 90 degrees and the soft tissues and posterior osteophytes were removed from the joint. 40 cc of the periarticular injection was injected into the posterior medial corner of the joint. The appropriate trials were then placed on the femur and tibia. A trial polyethylene was trialed to ensure proper balancing and stability of the knee. The appropriate tibial internal rotation was then marked with a bovie. Our attention was then directed to the patella. The lug holes were drilled and the patella trial was placed. Patellar tracking was checked and deemed appropriate. Once we were happy lug holes were drilled for the femur and trial components were removed. The tibia was subluxed and pinned into place and the keel was punched and drilled appropriately. Final components were verified and opened. The wound was copiously irrigated with normal saline. When the components were ready the components were impacted into place starting with the tibia then the femur, finally the patella was compressed into place. The trial poly component was placed and the knee was placed in full extension. Once the the implants were secured, the tracking, alignment and balance were verified and a size 10 mm CS polyethylene component was placed. Once the final components were placed a 3-minute dilute Betadine lavage was performed followed by an Irrisept lavage was performed and the wound was copiously irrigated with normal saline solution and the periarticular injection was given. The wound was closed in a layer lopez fashion using #1 vicryl interrupted sutures for the arthrotomy, 2-0 interrupted Vicryl suture for the subcuticular layer and nima for final skin closure. A sterile compressive dressing was then placed. The patient was then awakened from anesthesia, transferred to the [facility] and transferred to the PACU for recovery. Post op plan DVT ppx: ASA 81mg BID, thigh high compression stockings Follow up: in office in 2 weeks for wound check PT: to start POD #0 at hospital, outpatient PT should be arranged. My physician hotel assistant manager was a vital part of this case, they was important because there was not another skilled set of hands available to their training and aptitude needed for safe and appropriate completion of this case. They were important in appropriate retraction during the case, and protection of soft tissues during bony cuts. In particular the experience and skill of this hotel assistant manager made for safe retraction and exposure during implantation of medical implants without damage to vital soft tissues or structures. His intimate knowledge of the case and my steps aided in safe and expedient completion of the procedure as well as appropriate position of the leg during the case. He was also vital in assisting with closure under my direct supervision. Due to the complexity of this case robotic arm was used to assist in the surgery to improve accuracy and clinical outcomes. Surgical Findings: Stable knee with good patella tracking. Stage IV osteoarthritis Complications Complications: No Admit VTE Documentation VTE Present on Admission: No VTE Mechan Device Prophylaxis: SCD's VTE Pharm Prophylaxis ordered?: Yes
[2024-09-25 09:04] LABS: Bedside Glucose 87 mg/dL (74-106)
--- NOTE | 2024-09-25 09:35 | RAD_ITS ---
INDICATION: tka -- in PACU EXAMINATION/TECHNIQUE: X-RAY - LEFT XR Knee 1 or 2 Views 2 VIEWS COMPARISON: Prior study dated: 09/06/2024 FINDINGS: SOFT TISSUES: Postoperative changes involving the soft tissues. Skin nima in place. No radiopaque foreign body. BONES/JOINTS: Postop changes of total knee arthroplasty with normal alignment. No evidence hardware failure. No fractures noted.. Joint spaces maintained, small amount of postoperative air within the joint space. RAD/Knee 1 or 2 Views IMPRESSION: 1. Normal postoperative examination status post LEFT total knee arthroplasty. 2. No fracture or hardware failure. Electronically Signed: Ruslan James MD at 15:06 EST ,
--- NOTE | 2024-09-25 10:14 | POSTOPAN2_ITS ---
Anesthesia Postop Eval I Sum Postop Eval Completion status Anesthesia document: Postop Eval 1 completed: Yes Anesthesia Postop Eval I Summary Anesthesia Postop Eval I Summary: Anesthesia Postop Eval I: Assessment Summary Airway patent Yes 09/25/24 10:14 [email or web address] [email or web address] Spontaneous unlabored Yes 09/25/24 10:14 STEEPLE [email or web address] respirations Mental status Awake,Calm 09/25/24 10:14 STEEPLE [email or web address] nausea No 09/25/24 10:14 STEEPLE [email or web address] Vomiting No 09/25/24 10:14 STEEPLE [email or web address] Anesthesia Postop Eval I: Fluid Summary Crystalloid volume administer 1,000 09/25/24 10:14 STEEPLE [email or web address] (ml) Colloids volume administered ( ml) Blood Product volume administered (ml) Total IV fluid infused 1,000 09/25/24 10:14 STEEPLE [email or web address] Anesthesia Postop Eval I: Summary Notes Anesthesia Complication No 09/25/24 10:14 STEEPLE [email or web address] Anesthesia Complication Comment: Post-operative progress note Anesthesia: Postop Eval II Evaluation Mental status: Awake and Calm Pain Level: 0 nausea: No Vomiting: No Complications Anesthesia Complication: No
--- NOTE | 2024-09-25 10:14 | PCM.POST.ANE ---
Anesthesia: Postop Eval I Current Vital Signs Temperature: 97.1 F Pulse Rate: 79 Blood Pressure: 101/57 Respiratory Rate: 16 Pulse Ox: 95 Oxygen Delivery Method: Room Air Assessment Airway patent: Yes Spontaneous unlabored respirations: Yes Mental status: Awake and Calm nausea: No Vomiting: No Anesthesia Complication: No Fluid Hydration Crystalloid volume administer (ml): 1,000 Total IV fluid infused: 1,000 Progress Note Anesthesia document: Postop Eval 1 completed: Yes
--- NOTE | 2024-09-25 10:14 | PCM.POSTANE2 ---
Anesthesia Postop Eval I Sum Postop Eval Completion status Anesthesia document: Postop Eval 1 completed: Yes Anesthesia Postop Eval I Summary Anesthesia Postop Eval I Summary: Anesthesia Postop Eval I: Assessment Summary Airway patent Yes 09/25/24 10:14 APPLIANCE REPAIR [email or web address] Spontaneous unlabored Yes 09/25/24 10:14 APPLIANCE REPAIR TECHNICIAN.MDOT respirations Mental status Awake,Calm 09/25/24 10:14 APPLIANCE REPAIR TECHNICIAN.MDOT nausea No 09/25/24 10:14 APPLIANCE REPAIR TECHNICIAN.MDOT Vomiting No 09/25/24 10:14 APPLIANCE REPAIR [email or web address] Anesthesia Postop Eval I: Fluid Summary Crystalloid volume administer 1,000 09/25/24 10:14 APPLIANCE REPAIR TECHNICIAN.MDOT (ml) Colloids volume administered ( ml) Blood Product volume administered (ml) Total IV fluid infused 1,000 09/25/24 10:14 APPLIANCE REPAIR TECHNICIAN.MDOT Anesthesia Postop Eval I: Summary Notes Anesthesia Complication No 09/25/24 10:14 APPLIANCE REPAIR TECHNICIAN.MDOT Anesthesia Complication Comment: Post-operative progress note Anesthesia: Postop Eval II Evaluation Mental status: Awake and Calm Pain Level: 0 nausea: No Vomiting: No Complications Anesthesia Complication: No
[2024-09-25] MEDS: Cefazolin 1 GM/50 ML BAG IV (11:13)
[2024-09-25] MEDS: oxyCODONE 5 MG Tablet PO (12:41)
== END 2024-09-25 13:00 | disposition home or self-care (01) ==
LOC: SDC 05:42 → AC 05:43
PROVIDERS: Anesthesiology; PCP Family Medicine; Referring Provider Specialist; Visit Provider Specialist
PROC: 0SRD0JZ Replacement of Left Knee Joint with Synthetic Substitute, Open Approach (ICD-10-PCS; CPT 27447; principal; 2024-09-25 07:15)
DX: M17.12 Unilateral primary osteoarthritis, left knee (principal); J30.2 Other seasonal allergic rhinitis; G43.909 Migraine, unspecified, not intractable, without status migrainosus; F17.210 Nicotine dependence, cigarettes, uncomplicated; E66.9 Obesity, unspecified; Z68.34 Body mass index [BMI] 34.0-34.9, adult; Z79.899 Other long term (current) drug therapy; R06.02 Shortness of breath
CPT/HCPCS: 27447; 01402; 64447; S2900; 36415; 73560; 82962; 83735; 85025; 85610; 85730; 87081; 88305; 88311; 93005; 97162; C1776; A4216; J2405; J3475

== ENCOUNTER 2025-06-13 13:36 | Inpatient (IN) | payer OTHER, SELFPAY ==
[2025-06-13 13:36] VITALS: BP 123/77; PULSE 79; RESP 16; TEMP 36.4; O2SAT 98; BMI 34.2
[2025-06-13 14:00] LABS: Mucous, Urine 0 SEEN /hpf (<or=2+)
[2025-06-13 14:07] LABS: Hematocrit 40.6 % (37-47); Hemoglobin 13.6 g/dL (12.0-15.0); Immature Granulocytes Count 0.030 X10^3/uL (0.0-0.0); Mean Corp Hgb Conc 33.5 g/dL (32-36); Mean Corpuscular Volume 84.2 fL (81-99); Mean Platelet Vol. 12.1 fl (6.2-12.0); NRBC Flagged by Analyzer 0 % (0-5); Platelet Count 352 K/mm3 (150-450); RBC Distribution Width CV 16.0 % (11.6-14.6); RBC Distribution Width SD 49.0 fl (35.1-43.9); Red Blood Count 4.82 M/mm3 (4.2-5.4); White Blood Count 9.4 K/mm3 (4.4-11.0)
[2025-06-13 14:14] LABS: Color, Urine Amber (Yellow); Glucose, Dipstick Normal (Normal); Ketone-Dipstick 15 mg/dl (Negative); Leukocyte Esterase-Dipstick 500 /ul (Negative); Nitrite-Dipstick Negative (Negative); Occult Blood-Urine 25 /ul (Negative); Protein-Dipstick 100 mg/dl (Negative); Specific Gravity, Urine 1.020 (1.002-1.030)
[2025-06-13 14:20] LABS: Urine Bilirubin Dipstick 6 mg/dL (Negative)
[2025-06-13 14:23] LABS: Squamous Epithelial Cells - UA 5-10 SEEN /hpf (5-10)
[2025-06-13 14:26] LABS: Red Blood Cells-Urine 0-5 SEEN /hpf (0-5)
[2025-06-13 14:31] LABS: Lipase 12 U/L (13-75)
[2025-06-13 14:36] LABS: AST(SGOT) 507 U/L (<=31); Albumin, Serum 4.0 g/dL (3.5-5.0); Alkaline Phosphatase 886 U/L (35-104); Anion Gap 14 (5-15); BUN 20 mg/dL (4-19); BUN/Creat Ratio 19.8 RATIO (10-20); Calcium,Total 10.0 mg/dL (7.6-11.0); Carbon Dioxide 20.7 mmol/L (21.0-32.0); Chloride 104 mmol/L (98-108); Estimated Creatinine Clearance 62.84 ml/min (50-250); Globulin 3.3 g/dL (2.2-4.2); Glucose 99 mg/dL (70-99); Potassium 4.2 mmol/L (3.3-5.1)
[2025-06-13 14:56] LABS: Alanine Aminotransfer ALT/SGPT 1069 U/L (<=34)
--- NOTE | 2025-06-13 15:19 | US_ITS ---
PROCEDURE: GALLBLADDER 06/13/2025 REASON FOR EXAM: ABDOMINAL PAIN, ELEVATED LFTS TECHNIQUE: Procedure Code: USGB Modality: US Procedure: GALLBLADDER FINDINGS: The liver measures 14.5 cm and suggests fatty infiltration. There is moderate intrahepatic biliary dilatation. There is a cyst in the left lobe measuring 18 x 26 x 13 mm. The portal vein is patent. Gallbladder, pancreas and right kidney unremarkable. US/Gallbladder IMPRESSION: Dilated intrahepatic biliary ducts. Normal gallbladder. Reading [facility]
--- NOTE | 2025-06-13 15:20 | ED.VIS.GI ---
HPI HPI - GI History of Present Illness Chief Complaint: Abd Pain Detail of Chief Complaint: Abdominal pain Informant: patient Narrative Narrative: Patient presents with abdominal pain that she has had for several months. Initially she had lost 30 pounds with it. Pain then kind of resolved and went away after a while was treated for possible GERD. Pain came back about a week and a half ago when she lost about 10 pounds since then. Not having pain in her right side. Urine is dark. She has no urinary symptoms otherwise. Denies dysuria urgency or frequency. She said no fever chills or sweats. Pain made worse by eating. No prior abdominal surgeries. PFSH PFSH Medical History Post-menopausal Wears glasses Anxiety Arthritis Easy bruising Migraine headache Shortness of breath on exertion Smoker History of edema History of pain when walking Home Medications ?Medication ?Instructions ?Recorded ?Last Taken ?Type cholecalciferol (vitamin D3) 25 25 mcg PO DAILY 08/29/24 09/24/24 History mcg (1,000 unit) capsule (Vitamin D3) diclofenac sodium 75 mg 75 mg PO BID 08/29/24 09/20/24 History tablet,delayed release loratadine 10 mg capsule 10 mg PO DAILY 08/29/24 09/20/24 History melatonin 3 mg capsule 3 mg PO QHS 08/29/24 Unknown History sumatriptan succinate 50 mg tablet 50 mg PO PRN PRN migraine headache 08/29/24 Unknown History tramadol 50 mg tablet 50 - 100 mg PO Q6H PRN PRN pain 08/29/24 Unknown History turmeric 400 mg capsule 1,000 mg PO DAILY 08/29/24 09/20/24 History aspirin 81 mg capsule 81 mg PO BID 09/25/24 09/24/24 History Allergy/AdvReac Type Severity Reaction Status Date / Time No Known Allergies Allergy Verified 09/25/24 06:02 Surgical History Hx of total knee arthroplasty Hx of arthroscopic knee surgery History of endometrial ablation History of ankle surgery History of carpal tunnel surgery of right wrist Hx of foot surgery Hx of tubal ligation Social History Smoking Status: Current every day smoker tobacco type: cigarettes ROS ROS ED ROS Narrative Weight loss Review of Systems ROS Unobtainable: other Constitutional Constitutional ED: Reports lethargy; Denies chills, fever(s), sweats or weight loss Eyes Eyes: Denies blurry vision, change in vision or diplopia ENT ENT ED: Denies rhinorrhea or sore throat Cardiovascular Cardiovascular: Denies chest pain, orthopnea or racing heartbeat Respiratory/Chest Respiratory/Chest: Denies cough, dyspnea, dyspnea on exertion, orthopnea or sputum Gastrointestinal Gastrointestinal: Reports abdominal pain and nausea; Denies diarrhea or vomiting Genitourinary Genitourinary ED: Denies dysuria, hematuria or urinary frequency Musculoskeletal Musculoskeletal: Denies arthralgias, back pain, myalgias or neck pain Integumentary Denies abscess, Abrasions or rash Neurologic Neurologic: Denies headache(s) or weakness Psychiatric Psychiatric: Denies anxiety, depression or suicidal thoughts Endocrine Endocrinology: Denies polydipsia, polyphagia or polyuria Hematologic/Lymphatic Hematologic/Lymphatic: Denies easy bleeding, easy bruising or lymphadenopathy Allergic/Immunologic Allergic/Immunologic ED: Denies mouth swelling, tongue swelling or urticaria EXAM Physical Exam Const Vital Signs: 06/13/25 13:36 Temperature 97.6 F L Temperature Source Temporal Pulse Rate 79 Respiratory Rate 16 Blood Pressure 123/77 H Blood Pressure Mean 92 Pulse Ox 98 Oxygen Delivery Method Room Air Positive well nourished and well developed General Appearance ED: well developed and NAD HEENT Reports TM's clear and moist mucous membranes HEENT Narrative: Mild scleral icterus normocephalic and atraumatic; Negative for trauma or tenderness Tympanic Membrane ED: Yes TM's clear Eyes PERRL and EOMs intact bilaterally General Eye ED: Yes scleral icterus; Negative for pale conjunctiva Neck no lymphadenopathy, supple and no JVD General: Negative for tenderness Chest Wall inspection of chest normal and palpation of chest normal Chest: Negative for tenderness Resp normal respiratory effort and clear to auscultation bilaterally Effort and Inspection: Negative for respiratory distress or pain with movement Auscultation: Negative for rhonchi, wheezes or diminished lung sounds Cardio regular rate, regular rhythm, S1 normal heart sound, S2 normal heart sound and no murmurs Peripheral Pulses: pulses 2+ throughout GI normal to inspection, nondistended, normoactive bowel sounds, soft to palpation, non-distended and no masses GI Narrative: Tenderness palpation over right upper quadrant some mild guarding. There is no rebound, rigidity, or peritoneal signs Back/Spine no CVA tenderness and no thoracic nor lumbar tenderness Extremity normal to inspection General Extremety ED: Negative for edema General Extremity: Negative for edema Neuro oriented x3, CN's II-XII intact bilaterally, no sensory deficits noted and gait normal Sensorium / Orientation: awake, alert, oriented to person, oriented to place and oriented to time Motor Exam: strength 5/5 throughout and strength abnormal Psych mental status grossly normal Skin no rashes or lesions noted and no wounds MDM MDM MDM Narrative Medical decision making narrative: Patient presents to the emergency department with abdominal pain and inability to eat. Tenderness to the right upper quadrant and right flank. IV line established. CBC with differential obtained showed a white count of 9.4 with hemoglobin 13.6 and platelet count of 352. Chemistries unremarkable. LFTs were abnormal with total bilirubin of 5.65, AST 507, ALT 1069, alk phos 886. Lipase normal at 12. Urinalysis negative for infection. CT scan of the abdomen pelvis showed dilated bile ducts and pancreatic head mass. Patient also noted to have some small gallstones. Gallbladder ultrasound ordered and pending. Discussed results with general surgeon on-call Dr. Wilks who recommended we discussed with GI as he did not think there was any need for emergent surgical intervention. Spoke with Dr. Wallace who will see patient in consultation. Discussed with hospitalist to evaluate patient for admission for abdominal pain with biliary obstruction secondary to pancreatic head mass. Lab Data Attestation: I reviewed the patient's lab results. Labs: Laboratory Results - last 24 hr 06/13/25 06/13/25 13:42 13:54 WBC 9.4 RBC 4.82 Hgb 13.6 Hct 40.6 MCV 84.2 MCH 28.2 MCHC 33.5 RDW Std Deviation 49.0 H RDW Coeff of [place] 16.0 H Plt Count 352 MPV 12.1 H Immature Gran % (Auto) 0.300 Neut % (Auto) 60.7 Lymph % (Auto) 27.7 [place] % (Auto) 8.7 Eos % (Auto) 1.8 Baso % (Auto) 0.8 Absolute Neuts (auto) 5.7 Absolute Lymphs (auto) 2.61 Nucleated RBC % 0 Sodium 139 Potassium 4.2 Chloride 104 Carbon Dioxide 20.7 L Anion Gap 14 BUN 20 H Creatinine 1.01 Estim Creat Clear Calc 62.84 Est GFR (MDRD) Non-Af 65 BUN/Creatinine Ratio 19.8 Glucose 99 Calcium 10.0 Total Bilirubin 5.65 H AST 507 H ALT 1069 H Alkaline Phosphatase 886 H Total Protein 7.3 Albumin 4.0 Globulin 3.3 Albumin/Globulin Ratio 1.2 Lipase 12 L Urine Color Lynn Urine Clarity Clear Urine pH 5.0 Ur Specific [place] 1.020 Urine Protein 100 H Urine Glucose (UA) Normal Urine Ketones 15 H Urine Occult Blood 25 H Urine Nitrite Negative Urine Bilirubin 6 H Urine Urobilinogen 4 H Ur Leukocyte Esterase 500 H Urine RBC 0-5 SEEN Urine WBC 10-25 SEEN Ur Squamous Epith Cells 5-10 SEEN Amorphous Sediment 3+ URATE Urine Bacteria 0 SEEN Urine Mucus 0 SEEN Radiography Diagnostic Testing: Clinical Impression(s) from Imaging Studies Abdomen/Pelvis CT 06/13/25 15:40 IMPRESSION: Dilated intrahepatic biliary ducts in the common bile duct down to the head of the pancreas were I suspect a 14 mm mass in the head of the pancreas. Findings suggestive of small gallstones. Reading Location: [id number] Discharge Plan Triage Chief Complaint: Abd Pain ED Provider: Debi Eckert Dx/Rx/DC Orders Clinical Impression: Abdominal pain, Biliary obstruction, Mass of head of pancreas Prescriptions: No Action tramadol 50 mg tablet 50 - 100 mg PO Q6H PRN PRN (Reason: pain) diclofenac sodium 75 mg tablet,delayed release (DR/EC) 75 mg PO BID cholecalciferol (vitamin D3) [Vitamin D3] 25 mcg (1,000 unit) capsule 25 mcg PO DAILY turmeric 400 mg capsule 1,000 mg PO DAILY melatonin 3 mg capsule 3 mg PO QHS loratadine 10 mg capsule 10 mg PO DAILY sumatriptan succinate 50 mg tablet 50 mg PO PRN PRN (Reason: migraine headache) aspirin 81 mg capsule 81 mg PO BID Primary Care Provider: Joshua Yuan Referrals: Joshua Yuan MD [Primary Care Provider] - Print Language: Icelandic Disposition Disposition: Acute Care Hospital [facility]
--- NOTE | 2025-06-13 15:40 | CT_ITS ---
PROCEDURE: ABDOMEN/PELVIS W IV CONT ONLY 06/13/2025 REASON FOR EXAM: ABDOMINAL PAIN, ELEVATED LFTS, JAUNDICE TECHNIQUE: Procedure Code: [id number] Modality: CT Procedure: ABDOMEN/PELVIS W IV CONT ONLY Coronal and Sagittal reconstruction series were provided. CONTRAST: Isovue-300 VOLUME: 100 mL One or more dose reduction techniques were used (e.g., Automated exposure control, adjustment of the mA and/or kV according to patient size, use of iterative reconstruction technique. RADIATION DOSE SUMMARY: CTDlvol: 16.65 mGy DLP: 1034.43 mGycm COMPARISON: None FINDINGS: Lung bases: The lung bases are clear. Liver: Central intrahepatic biliary ductal dilatation. 1.4 cm cyst in the medial aspect of the left lobe of the liver. Gallbladder: I suspect small gallstones. The gallbladder is slightly distended. There is dilatation of the common bile duct measuring 14 mm. This is dilated down to the level of the ampulla of Vater. Spleen: Normal size. Pancreas: Findings suggestive of a 13 mm hypodense mass in the head of the pancreas. Correlation with ERCP recommended. Adrenals: Unremarkable Kidneys: Normal renal sizes. No hydronephrosis. Bladder: Bladder is empty. Reproductive Organs: Bilateral tubal ligation clips. Bowel: Unremarkable Appendix: Unremarkable Lymph nodes: Unremarkable. Vasculature: The abdominal aorta and IVC are normal. Peritoneum / Retroperitoneum: Unremarkable Bones: Mild degenerative changes. CT/Abdomen/Pelvis W IV Cont ONLY IMPRESSION: Dilated intrahepatic biliary ducts in the common bile duct down to the head of the pancreas were I suspect a 14 mm mass in the head of the pancreas. Findings suggestive of small gallstones. Reading Location: [id number]
--- NOTE | 2025-06-13 16:55 | PCM.HP.STD ---
HPI - General General Date of Admission: 06/13/25 Date of Service: 06/13/25 Chief Complaint: Abdominal pain with jaundice HPI Narrative CORIE HERNANDEZ, is a 54 F who presented to [facility] ED on 06/13/2025 with abdominal pain and jaundice. Patient has minimal past medical history significant for only current everyday smoker and class I obesity. She started to have upper abdominal/epigastric pain about 3 months ago. She has significant pain and discomfort with eating and has had very poor p.o. intake over that time and has lost approximately 30 pounds. Over the past several days she has noticed that her urine has become more dark. She was scheduled to see Dr. Wallace in the office for consultation this coming Wednesday, but given her ongoing symptoms she decided to come into the ED for further evaluation. Labs notable for total bilirubin 5.65, AST 507, ALT 1069, alk phos 886. CT abdomen pelvis showed dilated intrahepatic biliary ducts in the common bile duct down to the head of the pancreas with a suspected 14 mm mass in the head of the pancreas; was also noted to have small gallstones. Right upper quadrant ultrasound showed normal gallbladder, moderate intrahepatic biliary dilatation, normal gallbladder, no other concerning findings. Case was discussed with Dr. Wilks who noted no surgical needs at this time. Case was then discussed with Dr. Wallace who was agreeable to admitting the patient with plan for ERCP for further evaluation. Hospitalist was then contacted for admission. I saw the patient at bedside in the ED, was present. Patient was mildly fatigued appearing but otherwise sitting back fairly comfortably in her chair, conversing normally and in no acute distress. Denied any significant abdominal pain or discomfort currently. Denies any fevers or chills. No other acute concerns at this time. Will be admitted for further management. [facility] Medical History Post-menopausal Wears glasses Anxiety Arthritis Easy bruising Migraine headache Shortness of breath on exertion Smoker History of edema History of pain when walking Home Medications ?Medication ?Instructions ?Recorded ?Last Taken ?Type cholecalciferol (vitamin D3) 25 25 mcg PO DAILY 08/29/24 09/24/24 History mcg (1,000 unit) capsule (Vitamin D3) diclofenac sodium 75 mg 75 mg PO BID 08/29/24 09/20/24 History tablet,delayed release loratadine 10 mg capsule 10 mg PO DAILY 08/29/24 09/20/24 History melatonin 3 mg capsule 3 mg PO QHS 08/29/24 Unknown History sumatriptan succinate 50 mg tablet 50 mg PO PRN PRN migraine headache 08/29/24 Unknown History omeprazole 20 mg capsule,delayed 20 mg PO DAILY 06/13/25 Unknown History release sucralfate 1 gram tablet 1 g PO 4X/DAY 06/13/25 Unknown History Allergy/AdvReac Type Severity Reaction Status Date / Time No Known Allergies Allergy Verified 09/25/24 06:02 Surgical History Hx of total knee arthroplasty Hx of arthroscopic knee surgery History of endometrial ablation History of ankle surgery History of carpal tunnel surgery of right wrist Hx of foot surgery Hx of tubal ligation Social History Smoking Status: Current every day smoker tobacco type: cigarettes ROS Constitutional Constitutional: Reports anorexia and change in weight; Denies chills, fatigue, fever(s) or weakness Cardiovascular Cardiovascular: Denies chest pain Respiratory/Chest Respiratory/Chest: Denies shortness of breath at rest Gastrointestinal Gastrointestinal: Reports abdominal pain and nausea; Denies constipation, diarrhea or vomiting Genitourinary Genitourinary: Denies dysuria Musculoskeletal Musculoskeletal: Denies arthralgias or myalgias Vital Signs Vital Signs Vital Signs: 06/13/25 13:36 Temperature 97.6 F L Temperature Source Temporal Pulse Rate 79 Respiratory Rate 16 Blood Pressure 123/77 H Blood Pressure Mean 92 Pulse Ox 98 Oxygen Delivery Method Room Air Weight Weight: 84.867 kg Body Mass Index (BMI) 34.2 Physical Exam Const alert, oriented x3 and no apparent distress Constitutional Narrative: Middle-aged female, class I obesity, mildly fatigued appearing but otherwise sitting back comfortably in bedside chair, conversing normally, in no acute distress. General Appearance: cooperative and comfortable HEENT normocephalic, head/scalp atraumatic, hearing grossly normal bilaterally, nasal mucous membranes and turbinates normal and moist oral mucous membranes Eyes PERRL, EOMs intact bilaterally and conjunctivae normal Neck full ROM Chest inspection of chest normal Resp normal respiratory effort, normal air movement, no use of accessory muscles and clear to auscultation bilaterally Cardio regular rate, regular rhythm, no murmurs and peripheral pulses 2+ throughout GI normal to inspection, nondistended, normoactive bowel sounds, soft to palpation, non-tender and non-distended Back/Spine normal ROM Extremity normal to inspection, full ROM and no pedal edema Skin Skin Narrative: Mild jaundice noted. Psych mental status grossly normal Results Lab / Micro Data 06/13/25 13:42 06/13/25 13:42 Labs: Laboratory Results - last 24 hr 06/13/25 13:42: WBC 9.4, RBC 4.82, Hgb 13.6, Hct 40.6, MCV 84.2, MCH 28.2, MCHC 33.5, RDW Std Deviation 49.0 H, RDW Coeff of [place] 16.0 H, Plt Count 352, MPV 12.1 H, Immature Gran % (Auto) 0.300, Neut % (Auto) 60.7, Lymph % (Auto) 27.7, [place] % (Auto) 8.7, Eos % (Auto) 1.8, Baso % (Auto) 0.8, Absolute Neuts (auto) 5.7, Absolute Lymphs (auto) 2.61, Nucleated RBC % 0, Sodium 139, Potassium 4.2, Chloride 104, Carbon Dioxide 20.7 L, Anion Gap 14, BUN 20 H, Creatinine 1.01, Estim Creat Clear Calc 62.84, Est GFR (MDRD) Non-Af 65, BUN/Creatinine Ratio 19.8, Glucose 99, Calcium 10.0, Total Bilirubin 5.65 H, AST 507 H, ALT 1069 H, Alkaline Phosphatase 886 H, Total Protein 7.3, Albumin 4.0, Globulin 3.3, Albumin/Globulin Ratio 1.2, Lipase 12 L 06/13/25 13:54: Urine Color [place], Urine Clarity Clear, Urine pH 5.0, Ur Specific [place] 1.020, Urine Protein 100 H, Urine Glucose (UA) Normal, Urine Ketones 15 H, Urine Occult Blood 25 H, Urine Nitrite Negative, Urine Bilirubin 6 H, Urine Urobilinogen 4 H, Ur Leukocyte Esterase 500 H, Urine RBC 0-5 SEEN, Urine WBC 10-25 SEEN, Ur Squamous Epith Cells 5-10 SEEN, Amorphous Sediment 3+ URATE, Urine Bacteria 0 SEEN, Urine Mucus 0 SEEN Imaging Radiology Impression Abdomen/Pelvis CT 06/13/25 15:40 IMPRESSION: Dilated intrahepatic biliary ducts in the common bile duct down to the head of the pancreas were I suspect a 14 mm mass in the head of the pancreas. Findings suggestive of small gallstones. Reading Location: [facility] Assessment & Plan Assessment/Plan (1) Abdominal pain: (2) Biliary obstruction: (3) Mass of head of pancreas: PLAN: Plan Patient is a 54-year-old female who presented to [facility] ED on 06/13/2025 with abdominal pain and jaundice. 1. Abdominal pain with pancreatic head mass, biliary ductal dilation and elevated transaminases ? Admit under inpatient status to [facility]. GI consulted. Highest concern is for new diagnosis of pancreatic cancer with obstructive jaundice. CT abdomen pelvis showed dilated intrahepatic biliary ducts in the common bile duct down to the head of the pancreas with a suspected 14 mm mass in the head of the pancreas. LFTs with total bilirubin 5.65, AST 507, ALT 1069, alk phos 886. Will keep n.p.o. at midnight with plan for ERCP tomorrow. Pain control with oxycodone as needed and IV Dilaudid as needed. Trend daily LFTs. Chronic medical conditions: ? Class I obesity: BMI 34 on admit. Complicates hospital course and care. ? Tobacco dependence: Current everyday smoker. Nicotine replacement therapy available per patient request. Discussed cessation on discharge. ? GERD: Continue home PPI. ? Seasonal allergies: Continue home loratadine. DVT prophylaxis: Lovenox CODE STATUS: Full code, verified Expected disposition: Home, TBD Total clinical time spent by myself addressing the patient's medical issues, reviewing all the data, and collaborating with patient's care team: 57 minutes. Charges/Coding Visit Charges Inpatient E&M: 60102 Init Hosp L2
[2025-06-13 17:00] VITALS: BP 139/89; PULSE 68
[2025-06-13 17:40] VITALS: BP 127/79; PULSE 69; RESP 17; TEMP 36.3; O2SAT 100
[2025-06-13 18:29] VITALS: BMI 34.2
[2025-06-13 18:41] VITALS: BP 125/80; PULSE 65; RESP 18; TEMP 36.5; O2SAT 100
[2025-06-13 20:13] VITALS: O2SAT 97
[2025-06-13 21:01] VITALS: BP 138/72; PULSE 59; RESP 16; TEMP 36.7; O2SAT 97
--- OUTSIDE RECORDS SUMMARY | 2025-06-13 22:21 | XMS RPT_ITS | CCD ---
Author Organization [facility]iniSy[facility] Care Team Providers Care Assembler Insulator Name Role Phone DENNY DAVIS DO Admitting Unavailable DENNY DAVIS DO Attending Unavailable DENNY DAVIS DO Primary Care Unavailable JOSHUA WHITLOCK Consulting Unavailable JOSHUA WHITLOCK Referring Unavailable PROVIDER, UNKNOWN Consulting Unavailable PROVIDER, UNKNOWN Consulting Unavailable PROVIDER, UNKNOWN Consulting Unavailable JOSHUA WHITLOCK Consulting Unavailable AVILA WARNER DR Attending Unavailable AVILA WARNER DR Primary Care Unavailable AVILA WARNER DR Admitting Unavailable PROVIDER, UNKNOWN Consulting Unavailable PROVIDER, UNKNOWN Consulting Unavailable PROVIDER, UNKNOWN Consulting Unavailable Chinyere GALLEGOS, Joshua Allison Unavailable [place] partner management consultant, . . Unavailable [phone] Víctor Leslie DDS Unavailable [facility], . [facility] office Unavailable Vincenzo GALLEGOS, Dr. Bullard ([place] [facility]) A Unavail able [place] [facility] [place] Unavailable [phone] Angela SALVADOR, Liliane Unavailable Ankit DEAN, Ayesha Dangelo Unavailable Sung SALVADOR, Katya Yee Unavailable Unavailable Walter Shepherd MD Unavailable Edil DEAN, Keenan Yee Unavailable [phone] Grace Garcia MA Unavailable Unavailable Lili Downey LPN Unavailable Unavailable Damian CAMPBELL, Denise Velez Unavailable Unavaila Sabine Bergman PA-C Unavailable Naye Valdez Unavailable Heather Lauren LPN Unavailable Unavailab Lili Trujillo MA Unavailable Unavailable Soumya Michaels LPN Unavailable Unavailcaio e Unavailable Unavailable Dr. Joshua Whitlock Primary Care Provider Dr. Nelson Pacheco Attending Provider Dr. Azar Ortega Referring Provider Jai GAMING DIRECTOR, Jenna Unavailable Unavailabl nakia Grady GAMING DIRECTOR, Flakito Unavailable Unavailable Friend, Dr. Daily Unavailable Joshua Whitlock Referring Unavailable Alma Rosa Jones Attending Unavailable Joshua Whitlock Primary Care Unavailable Rudy Sullivan Attending Unavailable Rudy Sullivan Referring Unavailable Joshua Whitlock Primary Care Unavailable Rudy Sullivan Attending Unavailable Rudy Sullivan Referring Unavailable Joshua Whitlock Primary Care Unavailable Azar Perez Attending Unavailable Rudy Sullivan Referring Unavailable Joshua Whitlock Primary Care Unavailable Chinyere GALLEGOS, Dr. Lewis Primary Care Provider Dr. Debi Eckert DO Emergency Provider Dr. Maynor Blanton DO Admit Provider [phone] Dr. Maynor Blanton DO Attending Provider Medications Current Medications Medication Drug Class(es) Dates Sig (Normalized) Sig (Original) cholecalciferol 0.025 mg oral capsule (20 sources) Vitamin D Start: 08-29-2024 take 1 capsule by mouth once daily Cholecalciferol (Vitamin D3) (Vitamin D3) 25 mcg (1,000 unit) capsule Active 25 ug PO DAILY August 29, 2024 1:00am Vitamin D3 ; akosua ly diclofenac sodium 75 mg delayed release oral tablet (4 sources) Nonsteroidal Anti-inflammatory Drug Start: 08-29-2024 take 1 tablet by mouth twice daily Diclofenac Sodium 75 mg tablet,delayed release (DR/EC) Active 75 mg PO TWICE A DAY August 29, 2024 1:00am diclofenac potas sium ; 1 two times daily loratadine 10 mg oral capsule (20 sources) Start: 08-29-2024 take 1 capsule by mouth once daily Loratadine 10 mg capsule Active 10 mg PO DAILY August 29, 2024 1:00am melatonin 3 mg oral capsule (1 source) Start: 08-29-2024 take 1 capsule by mouth at bedtime Melatonin 3 mg capsule Active 3 mg PO AT BEDTIME August 29, 2024 1:00am omeprazole 20 mg delayed release oral capsule (10 sources) Proton Pump Inhibitor Start: 06-13-2025 take 1 capsule by mouth once daily Omeprazole 20 mg capsule,delayed release(DR/EC) Active 20 mg PO DAILY June 13, 2025 12:00am Start: 04-30-2025 omeprazole 40 mg capsule,delayed release ; 1 (one) capsule qd for 0 days Quantity: 30 {Capsule} Refills: 0 Ordered: 30-Apr-2025 MD Joshua Whitlock Start: 30-Apr-2025 Start: 04-03-2025 omeprazole 40 mg capsule,delayed release ; 1 (one) capsule qd for 0 days Quantity: 30 {Capsule} Refills: 0 Ordered: 03-Apr-2025 MD Joshua Whitlock Start: 03-Apr-2025 Start: 03-08-2025 omeprazole 40 mg capsule,delayed release ; 1 (one) capsule qd for 0 days Quantity: 30 {Capsule} Refills: 0 Ordered: 08-Mar-2025 MD Joshua Whitlock Start: 08-Mar-2025 Start: 02-07-2025 omeprazole 20 mg capsule,delayed release ; 1 (one) capsule qd for 0 days Quantity: 30 {Capsule} Refills: 3 Ordered: 07-Feb-2025 MD Joshua Whitlock Start: 07-Feb-2025 sucralfate 1000 mg oral tablet (10 sources) Aluminum Complex Start: 06-13-2025 take 1 tablet by mouth four times daily Sucralfate 1 gram tablet Active 1 g PO 4 TIMES DAILY June 13, 2025 12:00am Start: 03-08-2025 End: 03-18-2025 Carafate 1 gram tablet ; 1 ( one) tablet AC and HS for 10 days Quantity: 40 {Tablet} Refills: 0 Ordered: 08-Mar-2025 MD Joshua Whitlock Start: 08-Mar-2025 End: 18-Mar-2025 Status: Inactive Start: 02-07-2025 Carafate 1 gra m tablet ; 1 (one) tablet AC and HS for 10 days Quantity: 40 {Tablet} Refills: 0 Ordered: 07-Feb-2025 MD Joshua Whitlock Start: 07-Feb-2025 SUMAtriptan 50 mg oral tablet (20 sources) Serotonin-1b and Serotonin-1d Receptor Agonist Start: 06-26-2024 SUMAtriptan 50 mg tablet ; 1 (one) tablet as directed for 0 days Quantity: 30 {Tablet} Refills: 1 Ordered: 28-May-2025 MD Joshua Whitlock Start: 28-May-2025 Start: 03-14-2024 SUMAtriptan 50 mg tablet ; 1 (one) tablet as directed for 0 days Quantity: 30 {Tablet} Refills: 0 Ordered: 14-Mar-2024 MD Joshua Whitlock Start: 14-Mar-2024 Start: 02-08-2024 SUMAtriptan 50 mg tablet ; 1 (one) tablet as directed for 0 days Quantity: 6 {Tablet} Refills: 0 Ordered: 08-Feb-2024 MD Joshua Whitlock Start: 08-Feb-2024 Start: 12-30-2023 SUMAtriptan 50 mg tablet ; 1 (one) tablet as directed for 0 days Quantity: 6 {Tablet} Refills: 0 Ordered: 30-Dec-2023 MD Joshua Whitlock Start: 30-Dec-2023 Start: 10-14-2023 SUMAtriptan 50 mg tablet ; 1 (one) tablet as directed for 0 days Quantity: 6 {Tablet} Refills: 0 Ordered: 14-Oct-2023 MD Joshua Whitlock Start: 14-Oct-2023 Completed/Discontinued Medications Medication Drug Class(es) Dates Sig (Normalized) Sig (Original) ALPRAZolam 1 mg oral tablet (20 sources) Benzodiazepine Start: 11-17-2016 End: 12-24-2020 take 1 tablet by mouth three times daily as needed Xanax 1 MG Oral Tablet ; 1 (one) Tablet three times a day as needed for 0 days Quantity: 90 {Tablet} Refills: 0 Ordered: 24-Dec-2020 MODESTO Lauren Heather John Start: 17-Nov-2016 End: 24-Dec-2020 Status: Inactive Comments: Medication taken as needed. [facility] 11/17/16 Start: 07-14-2010 End: 07-16-2010 XANAX XR, 1MG (Oral Tablet E xtended Release 24 Hour) ; 1 Tablet ER 24HR Three times daily PRN for 0 days Quantity: 90 {Tablet_ER_24HR} Refills: 0 Ordered: 16-Jul-2010 MODESTO Lauren Maddi Start: 14-Jul-2010 End: 16-Jul-2010 Status: Inactive Comment on above: [facility] hydrochloride 50 mg oral tablet (20 sources) Tricyclic Antidepressant Start: 09-16-2010 End: 12-29-2012 AMITRIPTYLINE HCL, 50MG (Oral Tablet) ; 1 (one) Tablet each evening for 0 days Quantity: 30 {Tablet} Refills: 0 Ordered: 29-Dec-2012 MODESTO Miller Start: 16-Sep-2010 End: 29-Dec-2012 Status: Inactive amoxicillin 875 mg / clavulanate 125 mg oral tablet (20 sources) Penicillin-class Antibacterial Start: 10-06-2024 End: 10-16-2024 amoxicillin 875 mg-potassium clavulanate 125 mg tablet ; 1 (one) Tablet twice a day for 10 days Quantity: 20 {Tablet} Refills: 0 Ordered: 06-Oct-2024 DIANNE Pham Start: 06-Oct-2024 End: 16-Oct-2024 Status: Inactive Start: 09-13-2024 amoxicillin 87 5 mg-potassium clavulanate 125 mg tablet ; 1 (one) Tablet twice a day for 10 days Quantity: 20 {Tablet} Refills: 0 Ordered: 13-Sep-2024 MD Joshua Whitlock Start: 13-Sep-2024 Start: 10-14-2022 End: 10-21-2022 take 1 tablet by mouth twice daily Amoxicillin-Pot Clavulanate 875-125 MG Oral Tablet ; 1 (one) Tablet twice a day for 7 days Quantity: 14 {Tablet} Refills: 0 Ordered: 14-Oct-2022 DIANNE Solo Start: 14-Oct-2022 End: 21-Oct-2022 Status: Inactive Start: 01-22-2017 End: 02-01-2017 take 1 tablet by mouth twice daily at mealtime Augmentin 875-125 MG Oral Tablet ; 1 Tab two times daily for 10 days Quantity: 20 {Tablet} Refills: 0 Ordered: 19-May-2017 MD Joshua Whitlock Start: 22-Jan-2017 End: 01-Feb-2017 Status: Inactive Comments: Take with food Comment on above: Take with food Ascorbic Acid (20 sources) Vitamin C End: 02-07-2025 Vitamin C ; daily End: 07-Feb-2025 Status: Inactive Vitamin C ; angela y aspirin 81 mg oral tablet (1 source) Platelet Aggregation Inhibitor, Nonsteroidal Anti-inflammatory Drug Start: 09-25-2024 End: 06-13-2025 take 1 capsule by mouth twice daily Aspirin 81 mg capsule Discontinued 81 mg PO TWICE A DAY September 25, 2024 1:00am June 13, 2025 5:56pm azithromycin 500 mg oral tablet (20 sources) Macrolide Antimicrobial Start: 11-21-2015 End: 11-21-2015 take 1 tablet by mouth once daily AZITHROMYCIN, 500MG (Oral Tablet) ; 1 (one) Tablet daily for 3 days Quantity: 3 {Tablet} Refills: 0 Ordered: 21-Nov-2015 Xin, MODESTO Heather John Start: 21-Nov-2015 End: 21-Nov-2015 Status: Inactive Comments: caused diarrhea Start: 09-26-2010 End: 12-29-2012 ZITHROMAX Z-PEÑA, 250MG (Oral Tablet) ; 2 (two) Tablet today and then 1 tablet daily x 4 days for 0 days Quantity: 1 {z-peña} Refills: 0 Ordered: 29-Dec-2012 MODESTO Miller Start: 27-Jun-2012 End: 29-Dec-2012 Status: Inactive Comment on above: caused diarrhea benzonatate 100 mg oral capsule (20 sources) Non-narcotic Antitussive Start: 10-14-19 End: 10-25-19 24 Tessalon Perles 100 mg capsule ; 1 (one) capsule three times daily as needed for cough for 0 days Quantity: 30 {Capsule} Refills: 0 Ordered: 14-Oct-2022 Xin MODESTO Heather John Start: 14-Oct-2022 End: 25-Oct-2023 Status: Discontinued Comments: Medication taken as needed. Discontinued by Medication vendor. Comment on above: Medication taken as needed. swallow whole Medication taken as needed. Discontinued by Medication vendor. 12 hr buPROPion hydrochloride 150 mg extended release oral tablet (20 sources) Aminoketone Start: 06-07-20 14 End: 03-15-20 15 BUPROPION HCL ER (SR), 150MG (Oral Tablet Extended Release 12 Hour) ; 1 (one) Tablet ER 12HR Tablet ER 12HR bid for 0 days Quantity: 60 {Tablet} Refills: 5 Ordered: 15-Mar-2015 Start: 07-Jun-2014 End: 15-Mar-2015 Status: Inactive cephalexin 500 mg oral capsule (20 sources) Cephalosporin Antibacterial Start: 11-21-19 End: 01-15-20 16 take 2 capsules by mouth twice daily CEPHALEXIN, 500MG (Oral Capsule) ; 2 (two) Capsule two times daily for 0 days Quantity: 40 {Capsule} Refills: 0 Ordered: 15-Jan-2016 MODESTO Lauren Heather John Start: 21-Nov-2015 End: 15-Jan-2016 Status: Inactive Start: 01-23-2014 End: 02-02-2014 take 1 capsule by mouth three times daily CEPHALEXIN, 500MG (Oral Capsule) ; 1 Capsule three times daily for 10 days Quantity: 30 {Capsule} Refills: 0 Ordered: 23-Jan-2014 MD Joshua Whitlock Start: 23-Jan-2014 End: 02-Feb-2014 Status: Inactive doxycycline hyclate 100 mg oral tablet (20 sources) Tetracycline-class Drug Start: 09-15-2022 End: 09-25-2022 take 1 tablet by mouth twice daily Doxycycline Hyclate 100 MG Oral Tablet ; 1 (one) Tablet bid for 10 days Quantity: 20 {Tablet} Refills: 0 Ordered: 15-Sep-2022 MD Joshua Whitlock Start: 15-Sep-2022 End: 25-Sep-2022 Status: Inactive drospirenone / Ethinyl Estradiol (20 sources) Progestin, Estrogen Start: 06-30-2022 End: 08-11-2024 drospirenone 3 mg-ethinyl estradioL 0.03 mg tablet ; 1 (one) Tablet qd for 0 days Quantity: 60 {Tablet} Refills: 5 Ordered: 11-Aug-2024 MODESTO Grady Start: 30-Jun-2022 End: 11-Aug-2024 Status: Inactive Start: 06-30-2022 take 1 tablet by [facility] once daily Drospirenone-Ethinyl Estradiol 3-0.03 MG Oral Tablet ; 1 (one) Tablet qd for 0 days Quantity: 60 {Tablet} Refills: 5 Ordered: 30-Jun-2022 PHIL Mcleod Start: 30-Jun-2022 Estrogens, Conjugated (JAIL) / medroxyPROGESTERone (20 sources) Progestin, Estrogen Start: 04-07-2022 End: 10-14-2022 take 1 tablet by mouth once daily Prempro 0.3-1.5 MG Oral Tablet ; 1 (one) Tablet qd for 0 days Quantity: 56 {Tablet} Refills: 1 Ordered: 14-Oct-2022 PHIL Mcleod Start: 07-Apr-2022 End: 14-Oct-2022 Status: Inactive etodolac 500 mg oral tablet (20 sources) Nonsteroidal Anti-inflammatory Drug Start: 12-29-2010 End: 12-29-2012 take 1 tablet by mouth twice daily ETODOLAC, 500MG (Oral Tablet) ; 1 (one) Tablet two times daily for 0 days Quantity: 60 {Tablet} Refills: 0 Ordered: 29-Dec-2012 MODESTO Miller Start: 29-Dec-2010 End: 29-Dec-2012 Status: Inactive FLUoxetine 20 mg oral capsule (20 sources) Serotonin Reuptake Inhibitor Start: 07-26-2013 End: 08-02-2013 take 1 capsule by mouth once daily PROZAC, 20MG (Oral Capsule) ; 1 Capsule daily for 7 days Quantity: 7 {Capsule} Refills: 0 Ordered: 26-Jul-2013 MD Joshua Whitlock Start: 26-Jul-2013 End: 02-Aug-2013 Status: Inactive ketoconazole 20 mg/ml topical cream (20 sources) Azole Antifungal Start: 12-20-2020 End: 12-24-2020 Ketoconazole 2 % External Cream ; 1 (one) application(s) twice daily for 30 days Quantity: 60 {Gram} Refills: 1 Ordered: 24-Dec-2020 MODESTO Lauren Heather John Start: 20-Dec-2020 End: 24-Dec-2020 Status: Inactive Magnesium (20 sources) take 1 tablet by mouth once daily Magnesium 200 MG Oral Tablet ; 1 daily (200 MG) Status: Inactive take 1 tablet by mouth once angela y Magnesium 200 MG Oral Tablet ; 1 daily (200 MG) meloxicam 10 mg oral capsule (20 sources) Nonsteroidal Anti-inflammatory Drug Meloxicam 10 MG Oral Capsule ; 1 as needed (10 MG) Status: Inactive Comments: Medication taken as needed. Comment on above: Medication taken as needed. methocarbamol 750 mg oral tablet (20 sources) Muscle Relaxant Start: 020 End: take 1 tablet by mouth three times daily Robaxin-750 750 MG Oral Tablet ; 1 (one) Tablet tid for 0 days Quantity: 15 {Tablet} Refills: 0 Ordered: 20-Dec-2020 SHANNAN Salgado Start: 07-Feb-2020 End: 20-Dec-2020 Status: Inactive naproxen 500 mg oral tablet (20 sources) Nonsteroidal Anti-inflammatory Drug Start: 014 End: 015 take 1 tablet by mouth twice daily as needed NAPROXEN, 500MG (Oral Tablet) ; 1 (one) Tablet Tablet bid prn for 0 days Quantity: 60 {Tablet} Refills: 3 Ordered: 15-Mar-2015 Start: 07-Jun-2014 End: 15-Mar-2015 Status: Inactive PARoxetine hydrochloride 20 mg oral tablet (20 sources) Serotonin Reuptake Inhibitor Start: 013 End: take 1 tablet by mouth once daily PAROXETINE HCL, 20MG (Oral Tablet) ; 1 Tablet qd for 0 days Quantity: 30 {Tablet} Refills: 5 Ordered: 30-Oct-2013 MD Joshua Whitlock Start: 26-Jul-2013 End: 30-Oct-2013 Status: Inactive predniSONE 20 mg oral tablet (20 sources) Start: 016 End: take 3 tablets by mouth once daily, then take 2 tablets by mouth once daily, then take 1 tablet by mouth once daily, then take 0.5 tablet by mouth once daily PredniSONE 20 MG Oral Tablet ; Tablet for 0 days Quantity: 20 {Tablet} Refills: 0 Ordered: 22-Jan-2017 Start: 15-Jan-2016 End: 22-Jan-2017 Status: Inactive Comments: Take 3tabs qd for 3 days thenTake 2tabs qd for 3 days thenTake 1tab qd for 3 days thenTake 1/2tab qd for 4 days. Comment on above: Take 3tabs qd for 3 days thenTake 2tabs qd for 3 days thenTake 1tab qd for 3 days thenTake 1/2tab qd for 4 days. traMADol hydrochloride 50 mg oral tablet (20 sources) Opioid Agonist Start: 024 End: take 50-100 mg by mouth every six hours as needed for pain Tramadol 50 mg tablet Discontinued 50 - 100 mg PO EVERY 6 HOURS NEEDED as needed for pain August 29, 2024 1:00am June 13, 2025 5:56pm Start: 09-25-2011 End: 12-29-2012 take 1 tablet by mouth every four to six hours as needed ULTRAM, 50MG (Oral Tablet) ; 1 (one) Tablet every 4-6 hours as needed for 0 days Quantity: 30 {Tablet} Refills: 0 Ordered: 29-Dec-2012 MODESTO Miller Start: 25-Sep-2011 End: 29-Dec-2012 Status: Inactive Comments: Medication taken as needed. Comment on above: Medication taken as needed. Turmeric extract (1 source) Start: 08-29-2024 End: 06-13-2025 take 1 capsule by mouth once daily Turmeric 400 mg capsule Discontinued 1000 mg PO DAILY August 29, 2024 1:00am June 13, 2025 5:56pm Zinc (20 sources) Zinc ; daily Sta tus: Inactive Zinc ; daily zolpidem tartrate 5 mg oral tablet (20 sources) gamma-Aminobutyric Acid-ergic Agonist Start: 09-15-2010 End: 09-16-2010 take 1 tablet by mouth once daily at bedtime as needed AMBIEN, 5MG (Oral Tablet) ; 1 Tablet qhs prn for 0 days Quantity: 15 {Tablet} Refills: 0 Ordered: 16-Sep-2010 MD Joshua Whitlock Start: 15-Sep-2010 End: 16-Sep-2010 Status: Inactive Problems Active Problems Problem Classification Problem Date Documented Date Episodic/Chronic Abdominal pain (1 source) Abdominal pain; Translations: [Unspecified abdominal pain] 06-13-2025 Episodic Acute bronchitis (20 sources) Acute bronchitis; Translations: [Acute bronchitis, unspecified] 11-21-2015 Episodic Anxiety disorders (20 sources) Generalized anxiety disorder; Translations: [Generalized anxiety disorder] 04-02-2023 Chronic Biliary tract disease (1 source) Obstruction of biliary tree; Translations: [Obstruction of bile duct] 06-13-2025 Chronic Chronic obstructive pulmonary disease and bronchiectasis (20 sources) Bronchitis; Translations: [Bronchitis, not specified as acute or chronic] 02-07-2020 Episodic Esophageal disorders (20 sources) Gastroesophageal reflux disease; Translations: [Gastro-esophageal reflux disease without esophagitis] 02-07-2025 Chronic Headache; including migraine (20 sources) Migraine; Translations: [Migraine, unspecified, not intractable, without status migrainosus] 04-02-2023 Chronic Malaise and fatigue (20 sources) Fatigue; Translations: [Other fatigue] 04-21-2022 Episodic Menopausal disorders (20 sources) Disorder associated with menstruation AND/OR menopause; Translations: [Unspecified menopausal and perimenopausal disorder] 04-02-2023 Chronic Mood disorders (20 sources) Depressive disorder; Translations: [Depressive disorder, not elsewhere classified] 06-27-2012 Chronic Open wounds of extremities (20 sources) Laceration of finger; Translations: [Laceration without foreign body of unspecified finger without damage to nail, initial encounter] 12-20-2020 Episodic Osteoarthritis (5 sources) Osteoarthritis of left knee joint; Translations: [Unilateral primary osteoarthritis, left knee] Onset: 10-24-2024 05-28-2025 Chronic Other aftercare (20 sources) Long-term (current) use of other medications 04-01-2012 Episodic Other eye disorders (20 sources) Disorder of eyelid; Translations: [Unspecified disorder of eyelid] 04-07-2022 Episodic Other female genital disorders (20 sources) Other disorders of menstruation and other abnormal bleeding from female genital tract 04-07-2022 Chronic Other injuries and conditions due to external causes (20 sources) Injury of ankle; Translations: [Unspecified injury of unspecified ankle, initial encounter] 02-07-2020 Episodic Other lower respiratory disease (20 sources) Cough; Translations: [Cough] 04-02-2023 Episodic Other nervous system disorders (20 sources) Ulnar neuropathy; Translations: [Lesion of ulnar nerve, unspecified upper limb] 12-29-2012 Chronic Other nutritional; endocrine; and metabolic disorders (20 sources) Obesity; Translations: [Obesity, unspecified] 04-07-2022 Chronic Other screening for suspected conditions (not mental disorders or infectious disease) (20 sources) Patient encounter status; Translations: [Encounter for screening for lipoid disorders] 04-02-2023 Episodic Other skin disorders (20 sources) Eruption; Translations: [Rash and other nonspecific skin eruption] 04-07-2022 Episodic Other skin disorders (20 sources) Skin lesion; Translations: [Disorder of the skin and subcutaneous tissue, unspecified] 02-07-2020 Episodic Other upper respiratory infections (20 sources) Maxillary sinusitis; Translations: [Chronic maxillary sinusitis] 12-29-2012 Chronic Other upper respiratory infections (20 sources) Acute sinusitis; Translations: [Acute sinusitis, unspecified] 09-26-2010 Episodic Pancreatic disorders (not diabetes) (1 source) Mass of pancreas; Translations: [Other specified diseases of pancreas] 06-13-2025 Episodic Residual codes; unclassified (20 sources) Colon cancer screening declined; Translations: [Procedure and treatment not carried out because of patient's decision for unspecified reasons] 04-02-2023 Episodic Residual codes; unclassified (20 sources) Insomnia; Translations: [Insomnia, unspecified] 12-29-2012 Episodic Residual codes; unclassified (20 sources) Mammogram declined; Translations: [Procedure and treatment not carried out because of patient's decision for unspecified reasons] 06-04-2022 Episodic Residual codes; unclassified (20 sources) Screening declined; Translations: [Procedure and treatment not carried out because of patient's decision for unspecified reasons] 09-13-2024 Episodic Unclassified (20 sources) Number of Children 04-02-2023 Comment on above: 2. Unclassified (20 sources) Number of Pregnancies 04-02-2023 Comment on above: 2. Unclassified (20 sources) Vaginal deliveries 04-02-2023 Comment on above: 2. Unclassified (20 sources) Well adult female - The patient feels well with no complaints, has good energy level and is sleeping poorly (trouble falling asleep and staying asleep). The patient has a balanced diet. The patient exercises none (active). The patient sleeps 7 (6/7broken due to waking up) hours per night. Note for Well adult female: reviewed by [facility] 06-04-2022 Unclassified (20 sources) Follow Up for Multiple Chronic Conditions - The patient is here for follow-up of other condition(s) (Xanax). The patient always takes the prescribed medications. No side effects noted (pt is finding that she is only needed 3-4 tablets a week.). The patient engages in regular exercise program 3-5 times per week. The patient states that weight has increased (up 10# from last visit in March.), they are still having trouble sleeping (Only getting about 4 hours of sleep per ni ght. Has tried sleep aides in past but do not help.) and headaches are noted often but not on daily basis (Past couple weeks has been getting bad migraines. Using Excedrin migraine which does help if she can start medication at onset. Will get some n/v with these at times.). The patient states that the disease has mild emotional impact. Note for Multiple chronic conditions follow-up: HAvng high anxiety level right now. Dealing with her father having cancer and helping a lot with his care. Declines flu vaccine today. She also has a skin lesion on R lower leg, present x 1 year. Sister had skin cancer so pt is concerned 09-13-2015 Unclassified (17 sources) Pre-operative clearance - Surgical procedure(s) planned: other (left total knee). Date of procedure: (07/26/24) Surgeon: Erik) and Location of procedure: ([facility]) Previous problems include a reaction to general anesthesia (vomiting). Prosthetics include eye glasses. 08-11-2024 Unclassified (17 sources) [ADDITIONAL REASON] Well adult female - The patient feels well with no complaints. The patient has a balanced diet. The patient exercises none (active). The patient sleeps 7 hours per night. Note for Well adult female: reviewed by B 08-11-2024 Unclassified (9 sources) Well adult female - The patient feels well with no complaints. The patient has a balanced diet. The patient exercises none (active). The patient sleeps 7 hours per night. Note for Well adult female: reviewed by B 08-11-2024 Unclassified (9 sources) [ADDITIONAL REASON] Pre-operative clearance - Surgical procedure(s) planned: other (left total knee). Date of procedure: (07/26/24) Surgeon: Erik) and Location of procedure: ([facility]) Previous problems include a reaction to general anesthesia (vomiting). Prosthetics include eye glasses. 08-11-2024 Unclassified (1 source) Well adult female - The patient feels well with minor complaints (Patient was seen 02/07/2025 for GERD and was given omeprazole 20 mg but she was still having pain, so in April you increased the dose to 40 mg. She is still having stomach issues), has good energy level and is sleeping poorly (Patient has trouble falling asleep and staying asleep). The patient has a balanced diet. The patient exercises none (Active). The patient sleeps 6 (8) hours per night. Note for Well adult female: Patient is due for Pap Smear but declines at this time 05-28-2025 Unclassified (2 sources) Well adult female - The patient feels well with minor complaints (Patient was seen 02/07/2025 for GERD and was given omeprazole 20 mg but she was still having pain, so in April you increased the dose to 40 mg. She is still having stomach issues), has good energy level and is sleeping poorly (Patient has trouble falling asleep and staying asleep). The patient has a balanced diet. The patient exercises none (Active). The patient sleeps 6 (8) hours per night. Note for Well adult female: Patient is due for Pap Smear but declines at this time reviewed by [facility] 05-28-2025 Past or Other Problems Problem Classification Problem Date Documented Date Episodic/Chronic Joint disorders and dislocations; trauma-related (20 sources) Dislocation of temporomandibular joint; Translations: [Dislocation of jaw, unspecified side, initial encounter] Onset: 10-09-2024 02-07-2020 Episodic Unclassified (20 sources) Headache - The onset of the headache [...] areas, unilateral numbness or vertigo. Note for Headache: Patient has been using ice packs and Excedrin with no relief of symptoms. 04-02-2023 Unclassified (20 sources) Cold Symptoms - Symptoms include sneezing, nasal congestion, sore throat, dry cough and wheezing, but do not include ear pain, fever, chills or headache. The onset was sudden 1 month(s) ago. The symptoms occur constantly. The patient describes this as moderate in severity and unchanged (cough is getting slightly better). Current treatment includes non-prescription cold medication. 10-14-2022 Unclassified (20 sources) Cough - The onset of the cough has been acute and has been occurring in a persistent pattern for 4 days. The course has been increasing. The cough is characterized as dry. The cough occurs mainly at night. Associated symptoms include nasal congestion, sinus discharge, sinus pressure and sore throat. Note for Cough: Was started on cephalexin this weekend. 09-15-2022 Unclassified (20 sources) Mediation consultation - Stopped Prempro 4 months ago. Started with migraines, hot flashes, weight gain. Would like to go back on Prempro. The cost was too high, tried supplements but this was not successdful. 04-07-2022 Unclassified (20 sources) Menopause - The onset of menopause has been acute and has been occurring in an intermittent pattern for 10 years. The course has been increasing. The symptoms are described as moderate. The first day of the last menstrual period was : (years ago). The symptoms include flushing, sweating, headaches, vaginal dryness, depression, anxiety and insomnia. Note for Menopause: Has been gaining weight. reviewed by [facility] 12-24-2020 Unclassified (20 sources) Skin lesion - The skin lesion has been occurring for 1 month. It has been increasing in size. The lesion is characterized as red and raised above the skin. The lesion is located on the neck (on the left side). Note for Skin lesion: Has noticed that her gland on the left side of neck is larger than the right side. Area will be painful if touched or apply pressure. Will be itchy at times. States that for the past few years if she is out in the sun, will get welts on her upper chest. reviewed by B 12-20-2020 Unclassified (20 sources) Follow up consultation - The patient is here to follow-up after Emergency Room/Urgent Care ([facility] with laceration to the distal volar right index finger.) on : (02-03-20). Note for Consultation follow-up: She was started on ATBx but got diarhea with first 2 doses so she stopped it. 02-07-2020 Unclassified (20 sources) Jaw pain - The onset of the jaw pain has been sudden (pt was eating a piece of pizza last wednesday and her jaw locked up on the left side) and has been occurring in a persistent pattern for 1 week. The course has been constant. The pain affects the left side of jaw . Note for Jaw pain: Patient was seen by her Dentist, was [...] her jaw and unlock it. 01-06-2019 Unclassified (20 sources) Ankle pain - The onset of the [...] physical activity and stairs. Note for Ankle pain: Went to ER a few days after injury and was diagnosed with ankle sprain. Her foot was visbly deformed and she had to move it back into place . 05-31-2018 Unclassified (20 sources) Cold Symptoms - Symptoms include sneezing, nasal [...] asthma or tonsillectomy. Note for Upper respiratory infection: reviewed by B 01-22-2017 Unclassified (20 sources) Cold Symptoms - Symptoms include sneezing, nasal [...] severity and worsening. Note for Upper respiratory infection: Was treated 11-21-15 for bronchitis with Cephalexin. Symptoms improved slightly at that time but never completely cleared up. reviewed by [facility] 01-15-2016 Unclassified (20 sources) Cold Symptoms - Symptoms include nasal congestion, [...] and an individual with strep. 11-21-2015 Unclassified (20 sources) Punch Biopsy - Pt here for punch biopsy of lesion on lateral aspect of right lower leg. Has had spot for about 1 year. It has gotten bigger/ She states that the color changes throughout the day. It will start out as clear and then by end of day it is red. It has never bled. see previous. 09-16-2015 Unclassified (20 sources) Preoperative Clearance - Surgical procedure(s) planned: other (Bilateral Upper Lid Blephs). Date of procedure: (March 29, 2015) Surgeon: (Harinder Rodgers) and Location of procedure: ([facility]) There have been no problems with general anesthesia or blood/blood products. Prosthetics include eye glasses. Note for Pre-operative clearance: reviewed by B 03-15-2015 Unclassified (20 sources) Eye Symptoms - The onset of the eye symptoms has been acute and has been occurring in an increasing pattern for months. The course has been gradually worsening. The eye symptoms are described as moderate and involve the left eye. The symptoms are described as pain and swelling. Note for Eye symptoms: reviewed by B 12-11-2014 Unclassified (20 sources) Preoperative Clearance - Date of procedure: (08-10-13) Surgeon: (Dr Lawrence) and Location of procedure: ([facility]) There have been no problems with general anesthesia or blood/blood products. Prosthetics include eye glasses. Note for Pre-operative clearance: Would also like to discuss medication change for depression. Is currently on Prozac 40mg. Depression is getting worse and has had increased fatigue. Is also gaining weight. Lexapro and cymbalta were tried int hepast but did not work well. 07-26-2013 Unclassified (20 sources) Cold Symptoms - Symptoms include nasal congestion, [...] history of asthma. Note for Upper respiratory infection: reviewed by [facility] 02-28-2013 Unclassified (20 sources) Cold Symptoms - Symptoms include sneezing, nasal [...] recurrent ear infections. 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 Medical history includes seasonal allergies and recurrent sinusitis, but patient denies history of recurrent strep pharyngitis or asthma. 11-26-2011 Unclassified (20 sources) Irregular bleeding - Started spotting 3 days ago along with abdominal cramping. Has not had a peroid for 5 years. Pt had an ablation due to heavy bleeding. No cancer history. No other menopausal sx. PAPs have always been normal ( last one was 09/15/10 ) 09-25-2011 Unclassified (20 sources) Hand pain - The onset of the [...] been associated with muscle swelling. 12-29-2010 Unclassified (20 sources) Well adult female - Patient has not had a cholesterol screening. There has been no glucose screening. Patient has not had a Zostavax vaccine. Patient has not had a Pneumovax vaccine. Patient has not received a recent influenza vaccine. Patient has not been immunized against Tetanus. Note for Well adult female: pt is here for yearly exam, is not having period after procedure that was done in 2006. pt has no complaints at this time Had labs done at work and says cholesterol was good 09-15-2010 Unclassified (20 sources) [ADDITIONAL REASON] Cold Symptoms - Symptoms include ear pain (swollen, sore glands), but do not include fever. The onset was gradual 3 day(s) ago. The patient describes this as worsening. The patient is not currently being treated for this problem. 09-15-2010 Unclassified (5 sources) Cold Symptoms - Symptoms include ear pain (swollen, sore glands), but do not include fever. The onset was gradual 3 day(s) ago. The patient describes this as worsening. The patient is not currently being treated for this problem. 09-15-2010 Unclassified (5 sources) [ADDITIONAL REASON] Well adult female - Patient has not had a cholesterol screening. There has been no glucose screening. Patient has not had a Zostavax vaccine. Patient has not had a Pneumovax vaccine. Patient has not received a recent influenza vaccine. Patient has not been immunized against Tetanus. Note for Well adult female: pt is here for yearly exam, is not having period after procedure that was done in 2006. pt has no complaints at this time Had labs done at work and says cholesterol was good 09-15-2010 Unclassified (20 sources) Preoperative Clearance - Surgical procedure(s) planned: other (Right total knee replacement). Date of procedure: (11-10-23) Surgeon: (Dr Saenz) and Location of procedure: ([facility] There have been no problems with general anesthesia or blood/blood products. Prosthetics include eye glasses. Note for Pre-operative clearance: reviewed by [facility] 10-25-2023 Unclassified (17 sources) Cold Symptoms - Symptoms include nasal congestion, runny nose and facial pain, but do not include fever or headache. The onset was 1 week(s) ago. The symptoms occur constantly. The patient describes this as mild and unchanged. Current treatment includes non-prescription cold medication. Note for Upper respiratory infection: reviewed by B 09-13-2024 Unclassified (10 sources) Abdominal pain - The abdominal pain has been occurring for 1 month. The pain is described as a cramping. The pain is located in the epigastrium and upper abdomen and radiates to the right flank. The symptoms are aggravated by milk but are relieved by antacids. The symptoms have been associated with diarrhea. Note for Abdominal pain: Pt states every time I eat it tears my stomach up. She has tried Lactate , Tums and Pepcid without benefit. She is losing weight with this. No particular food causes sx. She points to epigastrium as main area of pain. 02-07-2025 Unclassified (1 source) Well adult female 05-28-2025 Results Test Name Value Interpretation Reference Range Facility Absolute lymphocyte countOrd ered By: ED PROVIDER on 06-13-2025 Lymphocytes Auto (Unsp spec) [#/Vol] 2.61 10*3/uL 0.83-4.51 [facility] Absolute neutrophil countOrd ered By: ED PROVIDER on 06-13-2025 Neutrophils (Bld) [#/Vol] 5.7 10*3/uL 2.0-7.7 [facility] Amorphous sediment detection in urine sediment by light microscopyOrdered By: Debi Eckert on 06-13-2025 Amorphous sediment LM Ql (Urine sed) 3+ URATE [facility] Anion gap in Serum or Plasma Ordered By: ED PROVIDER on 06-13-2025 Anion gap [Moles/Vol] 14 mmol/L 5-15 [facility] Automated lymphocyte count a s percentage of total leukocytesOrdered By: ED PROVIDER on 06-13-2025 Lymphocytes/100 WBC Auto (Unsp spec) 27.7 % 19-41 [facility] BUN/creatinine ratioOrdered By: ED PROVIDER on 06-13-2025 Urea nitrogen/Creatinine [Mass ratio] 19.8 mg/mg 10-20 [facility] Basophil percentageOrdered B y: ED PROVIDER on 06-13-2025 Basophils/100 WBC (Bld) 0.8 % 0-1 [facility] Bilirubin Test strip Ql (U)O rdered By: Debi Eckert on 06-13-2025 Bilirubin Ql (U) 6 mg/dL High Negative [facility] Comment on above: COLOR OF URINE MAY A FFECT DIPSTICK RESULTS. Bilirubin, totalOrdered By: ED PROVIDER on 06-13-2025 Bilirubin [Mass/Vol] 5.65 mg/dL High 0.00-1.30 [facility] Carbon dioxide, total [Moles /volume] in Central venous bloodOrdered By: ED PROVIDER on 06-13-2025 CO2 [Moles/Vol] 20.7 mmol/L Low 21.0-32.0 [facility] Chloride assayOrdered By: ED PROVIDER on 06-13-2025 Chloride [Moles/Vol] 104 mmol/L 98-108 [facility] Eosinophil percentageOrdered By: ED PROVIDER on 06-13-2025 Eosinophils/100 WBC (Bld) 1.8 % 0-5 [facility] Erythrocyte distribution wid th ratioOrdered By: ED PROVIDER on 06-13-2025 Erythrocyte distribution width (RBC) [Ratio] 16.0 % High 11.6-14.6 [facility] Erythrocyte distribution wid th standard deviationOrdered By: ED PROVIDER on 06-13-2025 Erythrocyte distribution width (RBC) [Ratio] 49.0 fl High 35.1-43.9 [facility] Glomerular filtration rate ( GFR) estimation/1.73 sq m using serum, plasma, or whole bOrdered By: ED PROVIDER on 06-13-2025 GFR/1.73 sq M.predicted among non-blacks MDRD (S/P/Bld) [Vol rate/Area] 65 mL/min/{1.73_m2} >60 [facility] Comment on above: mL/min/1.73m2 CKD-EP I Creatinine Equation (2020) Hematocrit Auto (Bld) [Volum e fraction]Ordered By: ED PROVIDER on 06-13-2025 Hematocrit (Bld) [Volume fraction] 40.6 % 37-47 [facility] Hemoglobin measurementOrdere d By: ED PROVIDER on 06-13-2025 Hemoglobin (Bld) [Mass/Vol] 13.6 g/dL 12.0-15.0 [facility] Immature granulocytes/100 WB C Auto (Bld)Ordered By: ED PROVIDER on 06-13-2025 Immature granulocytes/100 WBC (Bld) 0.300 % 0.0-0.9 [facility] Comment on above: IG% - Immature Granu locytes (promyelocytes, myelocytes and metamyelocytes) > 1% indicates that a LEFT SHIFT is Present. Ketones Test strip Ql (U)Ord ered By: Debi Eckert on 06-13-2025 Ketones Ql (U) 15 mg/dl High Negative [facility] Laboratory - Chemistry and C hemistry - challengeOrdered By: ED PROVIDER on 06-13-2025 AST [Catalytic activity/Vol] 507 U/L High <32 [facility] Comment on above: Hemolysis present, R esults could be affected. Lipase measurementOrdered By : ED PROVIDER on 06-13-2025 Lipase [Catalytic activity/Vol] 12 U/L Low 13-75 [facility] Comment on above: Please note:LIPASE r evised reference range effective 23. New Lipase methodology. Expected to produce lower values than the previous assay method. NEW Reference Range: 13 - 75 U/L MCV (mean corpuscular volume ) determinationOrdered By: ED PROVIDER on 06-13-2025 MCV (RBC) [Entitic vol] 84.2 fL 81-99 [facility] Mean corpuscular hemoglobin (MCH) determinationOrdered By: ED PROVIDER on 06-13-2025 MCH (RBC) [Entitic mass] 28.2 pg 27.0-32.0 [facility] Mean corpuscular hemoglobin concentration (MCHC) determinationOrdered By: ED PROVIDER on 06-13-2025 MCHC (RBC) [Mass/Vol] 33.5 g/dL 32-36 [facility] Mean platelet volume determi nationOrdered By: ED PROVIDER on 06-13-2025 Platelet mean volume (Bld) [Entitic vol] 12.1 fL High 6.2-12.0 [facility] Microscopic analysis of urin e for red blood cells (RBC)Ordered By: Debi Eckert on 06-13-2025 Microscopic analysis of urine for red blood cells (RBC) 0-5 SEEN /hpf 0-5 [facility] Monocyte percentageOrdered B y: ED PROVIDER on 06-13-2025 Monocytes/100 WBC (Bld) 8.7 % 0-10 [facility] Mucus LM Ql (Urine sed)Order ed By: Debi Eckert on 06-13-2025 Mucus Ql (Urine sed) 0 SEEN /hpf [facility] Neutrophil percentageOrdered By: ED PROVIDER on 06-13-2025 Neutrophils/100 WBC (Bld) 60.7 % 47-70 [facility] Nitrite Test strip Ql (U)Ord ered By: Debi Eckert on 06-13-2025 Nitrite Ql (U) Negative Negative [facility] Nucleated red blood cell per centageOrdered By: ED PROVIDER on 06-13-2025 Nucleated RBC/100 WBC (Bld) [Ratio] 0 % 0-5 [facility] Platelet countOrdered By: ED PROVIDER on 06-13-2025 Platelets (Bld) [#/Vol] 352 10*3/uL 150-450 [facility] Potassium measurement (mass/ volume)Ordered By: ED PROVIDER on 06-13-2025 Potassium (Unsp spec) [Mass/Vol] 4.2 mmol/L 3.3-5.1 [facility] Comment on above: Hemolysis present, R esults could be affected. Protein Test strip Ql (U)Ord ered By: Debi Eckert on 06-13-2025 Protein Ql (U) 100 mg/dl High Negative [facility] RBC Auto (Bld) [#/Vol]Ordere d By: ED PROVIDER on 06-13-2025 RBC (Bld) [#/Vol] 4.82 10*6/uL 4.2-5.4 [facility] Serum creatinine measurement (mass/volume)Ordered By: ED PROVIDER on 06-13-2025 Creatinine [Mass/Vol] 1.01 mg/dL 0.70-1.20 [facility] Comment on above: Icterus present, Res ults may be affected. Serum globulin measurementOr dered By: ED PROVIDER on 06-13-2025 Globulin (S) [Mass/Vol] 3.3 g/dL 2.2-4.2 [facility] Serum glucose measurement (m ass/volume)Ordered By: ED PROVIDER on 06-13-2025 Glucose [Mass/Vol] 99 mg/dL 70-99 [facility] Serum or plasma alanine giles otransferase (ALT) measurementOrdered By: ED PROVIDER on 06-13-2025 ALT [Catalytic activity/Vol] 1069 U/L High <35 [facility] Serum or plasma albumin jen urement (mass/volume)Ordered By: ED PROVIDER on 06-13-2025 Albumin [Mass/Vol] 4.0 g/dL 3.5-5.0 [facility] Serum or plasma albumin/glob ulin mass ratioOrdered By: ED PROVIDER on 06-13-2025 Albumin/Globulin [Mass ratio] 1.2 {ratio} 0.9-2.4 [facility] Serum or plasma alkaline shagufta sphatase measurementOrdered By: ED PROVIDER on 06-13-2025 ALP [Catalytic activity/Vol] 886 U/L High 35-104 [facility] Serum or plasma calcium jen urement (mass/volume)Ordered By: ED PROVIDER on 06-13-2025 Calcium [Mass/Vol] 10.0 mg/dL 7.6-11.0 [facility] Serum or plasma urea nitroge n measurement (mass/volume)Ordered By: ED PROVIDER on 06-13-2025 Urea nitrogen [Mass/Vol] 20 mg/dL High 4-19 [facility] Sodium levelOrdered By: ED P ROVIDER on 06-13-2025 Sodium [Moles/Vol] 139 mmol/L 133-145 [facility] Squamous epithelial cells de tection in urine sediment by light microscopyOrdered By: Debi Eckert on 06-13-2025 Epithelial cells.squamous LM Ql (Urine sed) 5-10 SEEN /hpf 5-10 [facility] Total proteinOrdered By: ED PROVIDER on 06-13-2025 Protein [Mass/Vol] 7.3 g/dL 5.9-8.4 [facility] Urine clarityOrdered By: Elvira Eckert on 06-13-2025 Clarity (U) Clear Clear [facility] Urine color determinationOrd ered By: Debi Eckert on 06-13-2025 Color (U) Lynn Yellow [facility] Urine glucose detectionOrder ed By: Debi Eckert on 06-13-2025 Glucose Ql (U) Normal mg/dl Normal [facility] Urine leukocyte esterase det ection by dipstickOrdered By: Debi Eckert on 06-13-2025 Leukocyte esterase Test strip Ql (U) 500 /ul High Negative [facility] Urine pHOrdered By: Debi Gonzalez gur on 06-13-2025 pH (U) 5.0 [pH] 5.0 - 8.0 [facility] Urine sediment bacteria coun t by microscopy (number/high power field)Ordered By: Debi Eckert on 06-13-2025 Bacteria LM.HPF (Urine sed) [#/Area] 0 /[HPF] None Seen [facility] Urine specific gravity measu rementOrdered By: Debi Eckert on 06-13-2025 Specific gravity (U) [Rel density] 1.020 1.002-1.030 [facility] Urine urobilinogen measureme ntOrdered By: Debi Eckert on 06-13-2025 Urobilinogen Ql (U) 4 mg/dl High Normal [facility] White blood cell (WBC) count Ordered By: ED PROVIDER on 06-13-2025 WBC (Bld) [#/Vol] 9.4 10*3/uL 4.4-11.0 [facility] White blood cell countOrdere d By: Debi Eckert on 06-13-2025 White blood cell count 10-25 SEEN /hpf 0-5 [facility] Bedside Glucoseon 09-25-2024 FINGERSTICK GLU 87 mg/dL Normal 74-106 [facility] Comment on above: Result Comment: DAVID STOCK OF PATIENT CARE PER NURSING PROTOCOL Performed By: #### L [id number] #### [facility] [place], [address] Decalcification bone/plaqueo n 09-25-2024 Decalcification bone/plaque Patient Age/Sex Location Account Attending Physician CORIE LUGO 54/F [facility] [id number] Dr. Rudy Sullivan MD Specimen: [id number] Received: 09/25/24 Status: AMBER [place] Num: [id number] Spec Type: TOTAL KNEE Subm Dr: Dr. Rudy Sullivan MD HEADER OPERATION: MARCO, robotic assisted left total knee arthroplasty PRE-OP DIAGNOSIS: Severe left knee osteoarthritis with varus deformity TISSUE SUBMITTED: Left patella and knee resections MICROSCOPIC DIAGNOSIS Bone and soft tissue, left knee, total knee replacement/resecti on: Pieces of bone with degenerative osteoarthritic changes. Fibroadipose tissue, fibroconnective tissue and reactive synovial tissue. [place]: 10/02/2024 MICROSCOPIC DESCRIPTION Slides are reviewed. GROSS DESCRIPTION Received is one container designated bone and soft tissue left knee. The specimen consists of multiple fragments of quezada-yellow bone measuring in aggregate 10 x 9 x 4.0 cm. Also in the specimen container are multiple fragments of yellow-white soft tissue measuring in aggregate 6 x 4 x 2 cm. A number of bony fragments contain articular surfaces consistent with tibial plateau and femoral condyle and displaying prominent osteophyte formation, eburnation and bone erosion. [employer] [employer] Superintendent sections are submitted in two cassettes as follows: 1 - soft tissue, 2 and 3 - bone after decalcification. /[place]:aye 09/25/24 TC:5 [facility]: [id number], [id number] Patient Age/Sex Location Account Attending Physician CORIE LUGO 54/F [facility] [id number] Dr. Rudy Sullivan MD Signed (signatur e on file) Dr. Wlaly Ryan MD 10/02/24 1116 Normal [facility] Comment on above: Performed By: #### P DEC ####[facility] [id number] [place], [place], [id number] Knee 1 or 2 Viewson 09-25-20 Knee 1 or 2 Views [facility] Services [address], [place] [address] Knee 1 or 2 Views MR#: [id number] Acct: [id number] Name: CORIE LUGO DONOVAN Rep #: [id number] : 1970 F 54 From: Ruslan Marie PCP: Dr. Joshua Whitlock MD Status: [facility] Study: Knee 1 or 2 Views Date of Exam: 09/25/24 Exam# [id number] Ordering Dr: Rudy Sullivan MD -[id number] INDICATION: tka -- in PACU EXAMINATION/TECHNIQ UE: X-RAY - LEFT XR Knee 1 or 2 Views 2 VIEWS COMPARISON: Prior study dated: 09/06/2024 FINDINGS: SOFT TISSUES: Postoperative changes involving the soft tissues. Skin inma in place. No radiopaque foreign body. BONES/JOINTS: Postop changes of total knee arthroplasty with normal alignment. No evidence hardware failure. No fractures noted.. Joint spaces maintained, small amount of postoperative air within the joint space. RAD/Knee 1 or 2 Views IMPRESSION: 1. Normal postoperative examination status post LEFT total knee arthroplasty. 2. No fracture or hardware failure. Electronically Signed: Ruslan James MD at 15:06 EST , CC: Dr. Joshua Whitlock MD; Dr. Rudy Sullivan MD Asset Administrator: Signed [facility] MR/POSTOP.[facility] 09-25-2024 MR/POSTOP.[facility] Medical Records Department [address] [place] [address] Anesthesia Postop Eval I 09/25/24 1014 MR#: [id number] Acct: [id number] Name: CORIE LUGO Rep #: [id number] : 1970 54 From: Lio Rao PCP: Dr. Joshua Whitlock MD Status:REG [facility] Y Race: C Location: [place] [address] Anesthesia: Postop Eval I Current Vital Signs Temperature: 97.1 F Pulse Rate: 79 Blood Pressure: 101/57 Respiratory Rate: 16 Pulse Ox: 95 Oxygen Delivery Method: Room Air Assessment Airway patent: Yes Spontaneous unlabored respirations: Yes Mental status: Awake and Calm nausea: No Vomiting: No Anesthesia Complication: No Fluid Hydration Crystalloid volume administer (ml): 1,000 Total IV fluid infused: 1,000 Progress Note Anesthesia document: Postop Eval 1 completed: Yes 09/25/24 1015 Date Lio Graham Signature: Date CC: Signed Normal [facility] MR/[id number] 09-25-2024 MR/POSTOPAN2 [facility] Medical Records Department [address] [place] [address] Anesthesia Postop Eval II 09/25/24 1014 MR#: [id number] Acct: [id number] Name: CORIE LUGO DONOVAN Rep #: [id number] : 1970 54 From: Lio Rao PCP: Dr. Joshua Whitlock MD Status:REG SDC Y Race: C Location: [place] [address] Anesthesia Postop Eval I Sum Postop Eval Completion status Anesthesia document: Postop Eval 1 completed: Yes Anesthesia Postop Eval I Summary Anesthesia Postop Eval I Summary: Anesthesia Postop Eval I: Assessment Summary Airway patent Yes 09/25/24 10:14 PLASTIC PRESS OPERATOR.MDOT Spontaneous unlabored Yes 09/25/24 10:14 PLASTIC PRESS OPERATOR.MDOT respirations Mental status Awake,Calm 09/25/24 10:14 PLASTIC PRESS OPERATOR.MDOT nausea No 09/25/24 10:14 PLASTIC PRESS OPERATOR.MDOT Vomiting No 09/25/24 10:14 PLASTIC PRESS OPERATOR.MDOT Anesthesia Postop Eval I: Fluid Summary Crystalloid volume administer 1,000 09/25/24 10:14 PLASTIC PRESS OPERATOR.MDOT (ml) Colloids volume administered ( ml) Blood Product volume administered (ml) Total IV fluid infused 1,000 09/25/24 10:14 PLASTIC PRESS OPERATOR.MDOT Anesthesia Postop Eval I: Summary Notes Anesthesia Complication No 09/25/24 10:14 PLASTIC PRESS OPERATOR.MDOT Anesthesia Complication Comment: Post-operative progress note Anesthesia: Postop Eval II Evaluation Mental status: Awake and Calm Pain Level: 0 nausea: No Vomiting: No Complications Anesthesia Complication: No 09/25/24 1015 Date Lio Graham Signature: Date CC: Signed Normal [facility] Operative Reporton 4 Operative Report [facility] Medical Records Department [address] [place] [address] Operative Report 09/25/24 0857 MR#: [id number] Acct: [id number] Name: CORIE LUGO Rep #: [id number] : 1970 54 From: Rudy Sullivan MD PCP: Dr. Joshua Whitlock MD Status:REG [facility] Location: [place] [address] Operative Report (Standard) Operative Information Date of Procedure: 09/25/24 Pre-Operative Diagnosis: Left knee primary osteoarthritis Post-Operative Diagnosis: Left knee primary osteoarthritis Surgery/Procedure Performed: Left total knee replacement pcb design engineer: Yes Counseling Services Director: Matheus Castelan Tasks completed by assistant director of residence life: Other (See operative report) Additional mailing machine assistant?: No Type of Anesthesia: Spinal RN Documented Start/Stop Times: Operation Date: 09/25/24 07:45 Case Time Into Pre-Op 09/25/24 05:45 Anesthesia Start 09/25/24 07:42 Into Room 09/25/24 07:42 Procedure Start 09/25/24 08:07 Procedure End 09/25/24 09:17 Anesthesia End 09/25/24 09:26 Out of Room 09/25/24 09:26 Into Recovery 09/25/24 09:30 Out of Recovery 09/25/24 10:08 Into Phase II Recovery 09/25/24 10:28 Procedure Start Time: 08:07 Procedure Stop Time: 09:17 Select all DRAINS/GRAFTS/IMPLA NTS that apply: Prosthetic device (See body of operative report) Prosthetic device details: See body of operative report Special Medications: Standard total joint antibiotics Estimated Blood Loss: 50 mL Fluids Replaced: 1000 mm crystalloid Specimen collected: Yes Description of specimen(s) removed: Bony cuts Description of surgery: Implants used: 1. Tolu size 2 triathlon cruciate retaining distal femoral press-fit component 2. Tolu size 2 press-fit tritanium tibial baseplate 3. Hepler X3 10 mm polyethylene 4. Tolu X3 32 million asymmetric patella Brief history operative indications: 54-year-old F with history of left knee osteoarthritis with radiographic findings with loss of joint space, osteophyte formation and subchondral sclerosis. Failed conservative measures as mentioned in the H P. Discussion of total knee arthroplasty as well as risk and benefits were discussed the patient including but not limited to blood loss, DVTs, PEs, neurovascular damage, general risk of anesthesia including loss of life, and stiffness or instability were discussed with patient. Patient demonstrated understanding and was able to sign informed consent. Procedure: On the date of procedure patient's left lower extremity was marked in the preoperative area. The patient was then taken back to the operating room where the patient was placed on the table in the supine position. All bony prominences were identified a well-padded. Anesthesia assumed control of the C-spine and airway and remained controlled throughout the remainder of the procedure. A tourniquet was placed on the left upper thigh and the leg was prepped in a sterile fashion. The surgeon then scrubbed at this time .Upon reentering the room left lower extremity was draped in a standard orthopedic fashion. A timeout was then called and everyone agreed upon the side, the site, the procedure to be performed, patient's identity and antibiotics given. Esmarch bandage was used to exsanguinate the extremity and the tourniquet was placed up to 250 mmHg with the knee in flexion. A midline skin incision was made and sharp dissection was taken down through skin subcutaneous tissue and fat. The standard medial parapatellar incision was made and the patella was subluxed laterally. An Appropriate deep MCL release was done and the fat pad was resected. Our attention was then directed to the patella. The patella was everted and a flat resection was made. The knee was then flexed up in 2 femoral pins were placed inside the incision and 2 tibial pins were placed outside the incision in the medial tibia bicortically. Once this was completed the 2 checkpoints in the femur and tibia were placed. Knee was then flexed up and the bony landmarks were registered. Once this was completed knee was taken through range of motion and manually stressed allowing us to a plan for an appropriate tibial cut. The robotic arm was brought into the field sterilely and checkpoint and saw were registered. Based on the patient's deformity the tibial cut was made neutral to the tibial axis. At this time the tensioner was then placed in the joint and ligament tension was checked at 90 degrees and full extension. Based on the patient's ligamentous tension appropriate adjustments were made to the operative plan and ligament releases were done. Once we were happy with our operative plan with balanced flexion and extension gaps our attention was directed to the femur. The robot was brought into the field sterilely and registered. Posterior condylar cuts, anterior chamfer cuts and anterior cuts were appropriately made for a size 2 (more content not included)... Normal [facility] MRSA/SAID NASAL SCREENon MRSA+SAID SCRN Reason for Exam: PREOP MRSA MRSA Negative S. AUREUS S. aureus Negative Normal [facility] Comment on above: Performed By: #### M 100.651, L100.0100 ####[facility] [id number] [facility] [place], [address] 12 Lead EKGon 09-06-2024 12 Lead EKG [facility] Cardiovascular Services [address] [place] [address] 12 Lead EKG 09/06/24 0753 MR#: [id number] Acct: [id number] Name: CORIE LUGO DONOVAN Rep #: [id number] : 1970 54 From: Azar Perez MD Attending Dr: Dr. Rudy Sullivan MD Status: PRE [facility] Ordering Dr: Rudy Sullivan MD Date: 09/06/24 Location: [facility] Sex: F C Admitted: Test Reason : PREOP Blood Pressure : */* mmHG Vent. Rate : 76 BPM Atrial Rate : 76 BPM P-R Int : 136 ms QRS Dur : 76 ms QT Int : 370 ms P-R-T Axes : 59 0 36 degrees QTcB Int : 416 ms Normal sinus rhythm Normal ECG Confirmed by Azar Perez ([id number]), restaurant expeditor JOSEY GALVAN ([id number]) on 09/06/2024 8:28:41 AM Referred By: Rudy Sullivan Confirmed By: Azar Perez 09/06/24 0828 Date Azar Perez MD CC: Dr. Joshua Whitlock MD; Dr. Rudy Sullivan MD Signed Normal [facility] CBC W/Diff, Automatedon 12-0 4-2023 Absolute Lymph 2.06 X10 3/uL Normal 0.83-4.51 [facility] Comment on above: Performed By: #### M 100.651, L100.0100 #### [facility] [address] [place], [address] Absolute Neut 9.7 X10 3/uL High 2.0-7.7 [facility] Comment on above: Performed By: #### M 100.651, L100.0100 #### [facility] [address] [place], [address] Basophils/100 WBC (Bld) 0.5 % Normal 0-1 [facility] Comment on above: Performed By: #### M 100.651, L100.0100 #### [facility] [address] [place], [address] Eosinophils/100 WBC (Bld) 0.8 % Normal 0-5 [facility] Comment on above: Performed By: #### M 100.651, L100.0100 #### [facility] [address] [place], [address] Erythrocyte distribution width (RBC) [Ratio] 14.5 % Normal 11.6-14.6 [facility] Comment on above: Performed By: #### M 100.651, L100.0100 #### [facility] [address] [place], [address] Hematocrit (Bld) [Volume fraction] 44.2 % Normal 37-47 [facility] Comment on above: Performed By: #### M 100.651, L100.0100 #### [facility] [address] [place], [address] Hemoglobin (Bld) [Mass/Vol] 14.1 g/dL Normal 12.0-15.0 [facility] Comment on above: Performed By: #### M 100.651, L100.0100 #### [facility] [address] [place], [address] IG% 0.300 Normal 0.0-0.9 [facility] Comment on above: Result Comment: IG% - Immature Granulocytes (promyelocytes, myelocytes and metamyelocytes) > 1% indicates that a LEFT SHIFT is Present. Performed By: #### M 100.651, L100.0100 #### [facility] [address] [place], [address] Lymphocytes/100 WBC (Bld) 15.7 % Low 19-41 [facility] Comment on above: Performed By: #### M 100.651, L100.0100 #### [facility] [address] [place], [address] MCH (RBC) [Entitic mass] 27.8 pg Normal 27.0-32.0 [facility] Comment on above: Performed By: #### M 100.651, L100.0100 #### [facility] [address] [place], [address] MCHC (RBC) [Mass/Vol] 31.9 g/dL Low 32-36 [facility] Comment on above: Performed By: #### M 100.651, L100.0100 #### [facility] [address] [place], [address] MCV (RBC) [Entitic vol] 87.0 fL Normal 81-99 [facility] Comment on above: Performed By: #### M 100.651, L100.0100 #### [facility] [address] [place], [address] Monocytes/100 WBC (Bld) 8.3 % Normal 0-10 [facility] Comment on above: Performed By: #### M 100.651, L100.0100 #### [facility] [address] [place], [address] Neutrophils/100 WBC (Bld) 74.4 % High 47-70 [facility] Comment on above: Performed By: #### M 100.651, L100.0100 #### [facility] [address] [place], [address] Nucleated RBC (Bld) [#/Vol] 0 10*3/uL Normal 0-5 [facility] Comment on above: Performed By: #### M 100.651, L100.0100 #### [facility] [address] [place], [address] Platelet mean volume (Bld) [Entitic vol] 10.8 fL Normal 6.2-12.0 [facility] Comment on above: Performed By: #### M 100.651, L100.0100 #### [facility] [address] [place], [address] Platelets (Bld) [#/Vol] 347 10*3/uL Normal 150-450 [facility] Comment on above: Performed By: #### M 100.651, L100.0100 #### [facility] [address] [place], [address] RBC (Bld) [#/Vol] 5.08 10*6/uL Normal 4.2-5.4 [facility] Comment on above: Performed By: #### M 100.651, L100.0100 #### [facility] [address] [place], [address] RDW SD 46.6 fl High 35.1-43.9 [facility] Comment on above: Performed By: #### M 100.651, L100.0100 #### [facility] [address] [place], [address] WBC (Bld) [#/Vol] 13.1 10*3/uL High 4.4-11.0 [facility] Comment on above: Performed By: #### M 100.651, L100.0100 #### [facility] [address] [place], [address] Extremity Lower without Cont raon 09-06-2024 Extremity Lower without Contra [facility] Imaging Services [address] [place] [address] Extremity Lower without Contra MR#: [id number] Acct: [id number] Name: CORIE LUGO DONOVAN Rep #: [id number] : 1970 F 54 From: Slava Casey MD PCP: Dr. Joshua Whitlock MD Status: REG CLI Study: Extremity Lower without Contra Date of Exam: 11/07/23 Exam# [id number] Ordering Dr: Rudy Sullivan MD -[id number] CT LEFT LOWER EXTREMITY WITH 3-D IMAGING CLINICAL INDICATION: Other tear of medial meniscus, current injury, left knee, initial TECHNIQUE: Axial CT images of the left lower extremity (including left hip, left knee, and left ankle) was performed without IV contrast material. Coronal and sagittal reformats were provided. The protocol utilizes one or more of the following dose reduction techniques: automated exposure control, adjustment of mA and/or kV according to patient size, and/or use of iterative reconstruction technique. RADIATION DOSAGE (If Supplied By Facility): CTDIvol = ( 18.76 ) mGy, DLP = ( 1178.55 ) mGycm COMPARISON: No relevant prior comparison study available. FINDINGS: Bones: There is mild degenerative arthrosis of the left hip joint. There is moderate to severe degenerative arthrosis of the medial femorotibial compartment of the left knee with moderate to severe joint space narrowing and subchondral sclerosis. There are old screw tracts in the talus and calcaneus. Osseous structures are intact without evidence of fracture or dislocation. No lytic or blastic osseous masses. Soft Tissues: There is a small left knee joint effusion. The deep soft tissue structures are unremarkable. The superficial soft tissues are unremarkable without evidence of edema, hematoma, or foreign body. CT/Extremity Lower without Contra IMPRESSION: Moderate to severe degenerative arthrosis of the medial femorotibial compartment of the left knee. Small left knee joint effusion. Electronically Signed: Slava Casey MD at 14:58 EST Reading Location ID and State: [facility] / [place] , Service support , CC: Dr. Joshua Whitlock MD; Dr. Rudy Sullivan MD Asset Administrator: Signed Normal [facility] Magnesiumon 09-06-2024 Magnesium [Mass/Vol] 2.2 mg/dL Normal 1.6-2.6 [facility] Comment on above: Performed By: #### L 501.5200, L300.4310, L300.3900 #### [facility] [address] [place], [address] Partial Thromboplast Timeon 09-06-2024 aPTT Coag (Bld) [Time] 25.2 s Normal 24.1-36.2 [facility] Comment on above: Performed By: #### L 501.5200, L300.4310, L300.3900 #### [facility] [address] [place], [address] Prothrombin Time w/INRon INR Coag (PPP) [Relative time] 1.0 {INR} Normal [facility] Comment on above: Performed By: #### L 501.5200, L300.4310, L300.3900 #### [facility] [address] [place], [address] PT Coag (PPP) [Time] 12.9 s Normal 11.7-14.9 [facility] Comment on above: Performed By: #### L 501.5200, L300.4310, L300.3900 #### [facility] [place], [address] [facility] 08-01-2024 Albumin [Mass/Vol] 4.2 g/dL Normal 3.6-5.1 [facility] Comment on above: Performed By: #### 7 600, 79454, 40313 #### [facility] of [address], [address] [place] [address] Tow Truck Dispatcher: Landon Barriga MD Albumin/Globulin [Mass ratio] 1.8 {ratio} Normal 1.0-2.5 [facility] Comment on above: Performed By: #### 7 600, 50275, 49613 #### [facility] of [place] [address] [employer] Dispatcher: Landon Barriga MD ALP [Catalytic activity/Vol] 81 U/L Normal 37-153 [facility] Comment on above: Performed By: #### 7 600, 14868, 42620 #### [facility] of [place] [address] Tow Truck Dispatcher: Landon Barriga MD ALT [Catalytic activity/Vol] 14 U/L Normal -29 [facility] Comment on above: Performed By: #### 7 600, 40095, 05238 #### [facility] of [place] [address] [employer] Dispatcher: Landon Barriga MD AST [Catalytic activity/Vol] 11 U/L Normal 10-35 [facility] Comment on above: Performed By: #### 7 600, 76320, 76816 #### [facility] of [place] [address] [employer] Truck Dispatcher: Landon Barriga MD Bilirubin [Mass/Vol] 0.4 mg/dL Normal 0.2-1.2 [facility] Comment on above: Performed By: #### 7 600, 44363, 03140 #### [facility] of [address] [employer] Dispatcher: Landon Barriga MD Calcium [Mass/Vol] 9.4 mg/dL Normal 8.6-10.4 [facility] Comment on above: Performed By: #### 7 600, 89126, 00054 #### [facility] of [address], [address] [place] [address] Tow Truck Dispatcher: Landon Barriga MD Chloride [Moles/Vol] 106 mmol/L Normal 98-110 [facility] Comment on above: Performed By: #### 7 600, 89327, 35549 #### [facility] of [address], [address] [place] [address] Tow Truck Dispatcher: Landon Barriga MD CO2 [Moles/Vol] 24 mmol/L Normal 20-32 [facility] Comment on above: Performed By: #### 7 600, 52288, 02760 #### [facility] of [address], [address] [place] [address] Tow Truck Dispatcher: Landon Barriga MD Creatinine [Mass/Vol] 0.81 mg/dL Normal 0.50-1.[address] [facility] Comment on above: Performed By: #### 7 600, 66072, 98427 #### [facility] of [place] [address] [employer] Truck Dispatcher: Landon Barriga MD GFR/1.73 sq M.predicted among non-blacks MDRD (S/P/Bld) [Vol rate/Area] 85 mL/min/{1.73_m2} Normal > OR = 60 [facility] Comment on above: Performed By: #### 7 600, 50496, 26398 #### [facility] of [address], [address] [place] [address] Tow Truck Dispatcher: Landon Barriga MD Globulin (S) [Mass/Vol] 2.3 g/dL Normal 1.9-3.7 [facility] Comment on above: Performed By: #### 7 600, 31626, 29712 #### [facility] of [address], [address] [place] [address] Tow Truck Dispatcher: Landon Barriga MD Glucose [Mass/Vol] 95 mg/dL Normal 65-99 [facility] Comment on above: Result Comment: Fasting reference interval Performed By: #### 7 600, 17667, 55635 #### [facility] [place] [address] Tow Truck Dispatcher: Landon Barriga MD Potassium [Moles/Vol] 4.3 mmol/L Normal 3.5-5.[address] [facility] Comment on above: Performed By: #### 7 600, 12260, 48317 #### [facility] [place] [address] Tow Truck Dispatcher: Landon Barriga MD Protein [Mass/Vol] 6.5 g/dL Normal 6.1-8.1 [facility] Comment on above: Performed By: #### 7 600, 29785, 08547 #### [facility] [place] [address] [employer] Truck Dispatcher: Landon Barriga MD Sodium [Moles/Vol] 141 mmol/L Normal 135-146 [facility] Comment on above: Performed By: #### 7 600, 23400, 18692 #### [facility] [place] [address] [employer] Truck Dispatcher: Landon Barriga MD Urea nitrogen [Mass/Vol] 29 mg/dL High 7-25 [facility] Comment on above: Performed By: #### 7 600, 80842, 31819 #### [facility] [place] [address] [employer] Truck Dispatcher: Landon Barriga MD Urea nitrogen/Creatinine [Mass ratio] 36 mg/mg High 6-22 [facility] Comment on above: Performed By: #### 7 600, 05497, 19605 #### [facility] [place] [address] Tow Truck Dispatcher: Landon Barriga MD LIPID PANEL, [facility] 10-2 Cholesterol [Mass/Vol] 196 mg/dL Normal <200 [facility] Comment on above: Performed By: #### 7 600, 70607, 72013 #### [facility] [place] [address] Tow Truck Dispatcher: Landon Barriga MD Cholesterol in HDL [Mass/Vol] 49 mg/dL Low > OR = 50 [facility] Comment on above: Performed By: #### 7 600, 99104, 93694 #### [facility] [place] [address] Tow Truck Dispatcher: Landon Barriga MD Cholesterol in LDL [Mass/Vol] 125 mg/dL High [facility] Comment on above: Result Comment: Refe rence range: <100 Desirable range <100 mg/dL for primary prevention; <70 mg/dL for patients with CHD or diabetic patients with > or = 2 CHD risk factors. LDL-C is now calculated using the Barber calculation, which is a validated novel method providing better accuracy than the Friedewald equation in the estimation of LDL-C. Ross GILLSI et al. VIDAL. 2013;310(19): 6471-0747 (http://education.Smartpay/faq/UGB610) Performed By: #### 7 600, 26005, 96134 #### [facility] [place] [address] [employer] Dispatcher: Landon Barriga MD Cholesterol.total/Choles terol in HDL [Mass ratio] 4.0 {ratio} Normal <5.0 [facility] Comment on above: Performed By: #### 7 600, 51049, 90422 #### [facility] [place] [address] [employer] Dispatcher: Landon Barriga MD NON HDL CHOLESTEROL 147 mg/dL (calc) High <130 [facility] Comment on above: Result Comment: For patients with diabetes plus 1 major ASCVD risk factor, treating to a non-HDL-C goal of <100 mg/dL (LDL-C of <70 mg/dL) is considered a therapeutic option. Performed By: #### 7 600, 04553, 08695 #### [facility] of [address], [address] [place] [address] Tow Truck Dispatcher: Landon Barriga MD Triglyceride [Mass/Vol] 108 mg/dL Normal <150 [facility] Comment on above: Performed By: #### 7 600, 26051, 82004 #### [facility] [address], [address] [place] [address] Tow Truck Dispatcher: Landon Barriga MD SPECIMEN INTEGRITY COMPROMIS EDon 08-01-2024 SPECIMEN INTEGRITY COMPROMISED Normal [facility] Comment on above: Result Comment: Whole blood, unspun or partially spun gel barrier tube was received more than 6 hours since collection. A false elevation of K, Phos and LD as well as a false decrease in glucose may occur due to prolonged contact with red cells. Performed By: #### 7 600, 44497, 28986 #### [facility] [address], [address] [place] [address] Tow Truck Dispatcher: Landon Barriga MD Laboratory - Chemistry and C hemistry - challengeon 07-31-2024 Albumin [Mass/Vol] 4.2 g/dL Normal 3.6 - 5.1 g/dL [facility] [employer] Albumin/Globulin [Mass ratio] 1.8 {ratio} Normal 1.0 - 2.5 [place] [email or web address] ALP [Catalytic activity/Vol] 81 U/L Normal 37 - 153 U/L [employer] ALT [Catalytic activity/Vol] 14 U/L Normal 6 - 29 U/L [employer] AST [Catalytic activity/Vol] 11 U/L Normal 10 - 35 U/L [employer] Bilirubin [Mass/Vol] 0.4 mg/dL Normal 0.2 - 1 .2 mg/dL [employer] Calcium [Mass/Vol] 9.4 mg/dL Normal 8.6 - 10. 4 mg/dL [employer] Chloride [Moles/Vol] 106 mmol/L Normal 98 - 11 0 mmol/L [facility], [facility]. Cholesterol [Mass/Vol] 196 mg/dL Normal [facility], [facility] Cholesterol in HDL [Mass/Vol] 49 mg/dL Abnormal [facility], [facility], [facility] Cholesterol in LDL [Mass/Vol] 125 mg/dL [facility], [facility]. CO2 [Moles/Vol] 24 mmol/L Normal 20 - 32 mmol/L [facility], [facility]. Creatinine [Mass/Vol] 0.81 mg/dL Normal 0.50 - 1.03 mg/dL [facility], [facility].; [facility], [facility]. GFR/1.73 sq M.predicted among non-blacks MDRD (S/P/Bld) [Vol rate/Area] 85 mL/min/{1.73_m2} Normal [facility], [facility].; [facility], [facility]. Glucose [Mass/Vol] 95 mg/dL Normal 65 - 99 mg/dL [facility].; [facility], [facility]. Potassium [Moles/Vol] 4.3 mmol/L Normal 3.5 - 5.3 mmol/L [facility], [facility]. Protein [Mass/Vol] 6.5 g/dL Normal 6.1 - 8.1 g/dL [facility], [facility].; [facility], Inc[employer] Sodium [Moles/Vol] 141 mmol/L Normal 135 - 146 mmol/L [facility], [facility].; [facility], Inc[employer] Triglyceride [Mass/Vol] 108 mg/dL Normal [facility], [facility].; [facility], [facility]. Urea nitrogen [Mass/Vol] 29 mg/dL Abnormal 7 - 25 mg/d L [facility], [facility].; [facility], [facility]. Urea nitrogen/Creatinine [Mass ratio] 36 mg/mg Abnormal 6 - 22 [facility], [facility].; [facility], [facility] No Panel Informationon 07-31 CHOL/HDLC RATIO 4.0 Normal [facility].; [facility] GLOBULIN 2.3 Normal 1.9 - 3.7 [facility]; [facility], [employer] NON HDL CHOLESTEROL 147 Abnormal [facility]; [facility] SPECIMEN INTEGRITY COMPROMISED See Below Normal [facility]; [facility] [employer] Work Phone: Absolute lymphocyte countOrd ered By: Matheus Castelan on 10-18-2023 Lymphocytes Auto (Unsp spec) [#/Vol] 2.14 10*3/uL 0.83-4.51 [facility] Basophil percentageOrdered B y: Matheus Castelan on 10-18-2023 Basophils/100 WBC (Bld) 0.3 % 0-1 [facility] Chloride [Moles/Vol] 110 mmol/L 98-107 [facility] Eosinophils/100 WBC (Bld) 2.4 % 0-5 [facility] Glucose [Mass/Vol] 96 mg/dL 74-106 [facility] Neutrophils (Bld) [#/Vol] 6.3 10*3/uL 2.0-7.7 [facility] Neutrophils/100 WBC (Bld) 65.2 % 47-70 [facility] Potassium [Moles/Vol] 4.2 mmol/L 3.5-5.1 [facility] Sodium [Moles/Vol] 140 mmol/L 136-145 [facility] WBC (Bld) [#/Vol] 9.6 10*3/uL 4.4-11.0 [facility] Blood erythrocytes count (nu mber/volume)Ordered By: Matheus Castelan on 10-18-2023 RBC (Bld) [#/Vol] 4.85 10*6/uL 4.2-5.4 [facility] Blood hemoglobin measurement (mass/volume)Ordered By: Matheus Castelan on 10-18-2023 Hemoglobin (Bld) [Mass/Vol] 13.6 g/dL 12.0-15.0 [facility] Blood lymphocytes/100 leukoc ytesOrdered By: Matheus Castelan on 10-18-2023 Lymphocytes/100 WBC (Bld) 22.3 % 19-41 [facility] Blood monocytes/100 leukocyt esOrdered By: Matheus Castelan on 10-18-2023 Monocytes/100 WBC (Bld) 9.4 % 0-10 [facility] Blood platelet mean volumeOr dered By: Matheus Castelan on 10-18-2023 Platelet mean volume (Bld) [Entitic vol] 10.9 fL 6.2-12.0 [facility] Determination of erythrocyte mean corpuscular volume (MCV)Ordered By: Matheus Castelan on 10-18-2023 MCV (RBC) [Entitic vol] 87.2 fL 81-99 [facility] Hematocrit Auto (Bld) [Volum e fraction]Ordered By: Matheus Castelan on 10-18-2023 Hematocrit (Bld) [Volume fraction] 42.3 % 37-47 [facility] Laboratory - Chemistry and C hemistry - challengeOrdered By: Matheus Castelan on 10-18-2023 CO2 [Moles/Vol] 24.0 mmol/L 21.0-32.0 [facility] Urea nitrogen/Creatinine [Mass ratio] 28.2 mg/mg 10-20 [facility] Laboratory - Hematology and Cell countsOrdered By: Matheus Castelan on 10-18-2023 Erythrocyte distribution width (RBC) [Entitic vol] 45.4 fL 35.1-43.9 [facility] Erythrocyte distribution width (RBC) [Ratio] 14.1 % 11.6-14.6 [facility] Immature granulocytes/100 WBC (Bld) 0.400 % 0.0-0.9 [facility] Comment on above: IG% - Immature Granu locytes (promyelocytes, myelocytes and metamyelocytes) > 1% indicates that a LEFT SHIFT is Present. MCH (RBC) [Entitic mass] 28.0 pg 27.0-32.0 [facility] Nucleated RBC/100 WBC (Bld) [Ratio] 0 % 0-5 [facility] MCHC Auto (RBC) [Mass/Vol]Or dered By: Matheus Castelan on 10-18-2023 MCHC (RBC) [Mass/Vol] 32.2 g/dL 32-36 [facility] No Panel InformationOrdered By: Matheus Castelan on 10-18-2023 Estimated GFR (MDRD) Amer 89 mL/min >60 [facility] Comment on above: GFR Calc Estimated GFR (MDRD) Non-Af Amer 74 mL/min >60 [facility] Comment on above: Non- GFR Calc Platelets bldOrdered By: Arsenio Castelan on 10-18-2023 Platelets (Bld) [#/Vol] 355 10*3/uL 150-450 [facility] Serum or plasma calcium jen urement (mass/volume)Ordered By: Matheus Castelan on 10-18-2023 Calcium [Mass/Vol] 9.6 mg/dL 8.5-10.1 [facility] Serum or plasma creatinine m easurement (mass/volume)Ordered By: Matheus Castelan on 10-18-2023 Creatinine [Mass/Vol] 0.85 mg/dL 0.55-1.02 [facility] Comment on above: The validity of the calculated GFR & GFRAA in patients over 70 years has not been determined. Clinical correlation is essential. Serum or plasma urea nitroge n measurement (mass/volume)Ordered By: Matheus Castelan on 10-18-2023 Urea nitrogen [Mass/Vol] 24 mg/dL 04-20 [facility] Thin prep Papanicolaou smear with manual screeningOrdered By: Matheus Castelan on 10-18-2023 Thin prep Papanicolaou smear with manual screening 6 02-15 [facility] Whole blood hemoglobin A1c/t otal hemoglobin ratio (mass fraction)Ordered By: Matheus Castelan on 10-18-2023 HbA1c (Bld) [Mass fraction] 5.6 % 3.8-5.6 [facility] Comment on above: Normal < 5.7 % Predi abetic 5.7 - 6.4 % Diabetic >or= 6.5 % Please note range changes. No Panel Informationon 06-04 [id number] SEE NOTE Normal [place] [employer] [facility], [facility].; [employer] CLINICAL INFORMATION: SEE NOTE Normal [facility] [employer] [place], [facility].; [email or web address] RES HABILITATION ASSISTANT: SEE NOTE Normal [place] [email or web address], [employer].; [email or web address] INTERPRETATION/RESULT: SEE NOTE Normal [facility], Inc.; [email or web address] LMP: SEE NOTE Normal [place] [email or web address], [facility].; [facility], [employer] PREV. BX: SEE NOTE Normal [place] [employer].; [employer]. PREV. PAP: SEE NOTE Normal [facility] [employer].; [place] [email or web address], [employer]. SOURCE: SEE NOTE Normal [facility] [employer] [facility].; [place] [employer] STATEMENT OF ADEQUACY: SEE NOTE Normal [facility] [employer].; [employer] Laboratory - Chemistry and C hemistry - challengeon 05-28-2022 Albumin [Mass/Vol] 4.2 g/dL Normal 3.6 - 5.1 g/dL [facility].; [email or web address], [employer]. Albumin/Globulin [Mass ratio] 1.8 {ratio} Normal 1.0 - 2.5 [place] [employer] [facility].; [place] [employer]. ALP [Catalytic activity/Vol] 77 U/L Normal 37 - 153 U/L [place] [employer] [facility].; [email or web address], [employer]. ALT [Catalytic activity/Vol] 16 U/L Normal 6 - 29 U/L [facility] [employer] [facility].; [employer], [employer]. AST [Catalytic activity/Vol] 15 U/L Normal 10 - 35 U/L [place] [employer].; [email or web address] Bilirubin [Mass/Vol] 0.2 mg/dL Normal 0.2 - 1 .2 mg/dL [place] [employer].; [employer], [employer]. Calcium [Mass/Vol] 9.2 mg/dL Normal 8.6 - 10. 4 mg/dL [place] [employer] [facility].; [email or web address]. Chloride [Moles/Vol] 106 mmol/L Normal 98 - 11 0 mmol/L [place] [employer] [facility].; [email or web address]. Cholesterol [Mass/Vol] 201 mg/dL Abnormal [facility].; [email or web address]. Cholesterol in HDL [Mass/Vol] 44 mg/dL Abnormal [place] [employer] [facility].; [employer] Cholesterol in LDL [Mass/Vol] 130 mg/dL Abnormal [place] [email or web address], [employer].; [employer], [employer]. CO2 [Moles/Vol] 28 mmol/L Normal 20 - 32 mmol/L [place] [employer].; [email or web address]. Creatinine [Mass/Vol] 0.82 mg/dL Normal 0.50 - 1.03 mg/dL [facility].; [facility], [employer]. GFR/1.73 sq M.predicted among non-blacks MDRD (S/P/Bld) [Vol rate/Area] 85 mL/min/{1.73_m2} Normal [facility], [facility].; [place] [email or web address] Glucose [Mass/Vol] 91 mg/dL Normal 65 - 99 mg/dL [facility].; [place] [email or web address] Potassium [Moles/Vol] 4.5 mmol/L Normal 3.5 - 5.3 mmol/L [facility].; [place] [employer] [facility], [employer]. Protein [Mass/Vol] 6.5 g/dL Normal 6.1 - 8.1 g/dL [facility], [facility].; [place] [email or web address], [employer]. Sodium [Moles/Vol] 141 mmol/L Normal 135 - 146 mmol/L [facility].; [place] [email or web address], [employer]. Triglyceride [Mass/Vol] 153 mg/dL Abnormal [facility].; [place] [employer] [facility], [facility]. Urea nitrogen [Mass/Vol] 23 mg/dL Normal 7 - 25 mg/d L [facility].; [place] [email or web address], [employer]. No Panel Informationon 05-28 BUN/CREATININE RATIO NOT APPLICABLE Normal 6 - 22 [facility].; [place] [email or web address] CHOL/HDLC RATIO 4.[address] [facility], [facility].; [place] [employer] GLOBULIN 2.3 Normal 1.9 - 3.7 [facility].; [place] [email or web address] NON HDL CHOLESTEROL 157 Abnormal [facility].; [place] [employer] MR KNEE WO RTon 04-01-2021 MR KNEE WO RT [place] [id number] Patient: CORIE LUGO Phone#: : 1970 Age: 50 Gender: F Pt. Type: Out Account: [id number] Location: 052 Ordering: AVILA WARNER Exam Date: 04/01/2021/10:54 Family Phys: JOSHUA WHITLOCK Charge Code: [id number] Physician: Mcpherson Order #: [id number] DLP Dose#: PROCEDURE: MRI KNEE RT WITHOUT CONTRAST COMPARISON: None. INDICATIONS: Pain in right knee TECHNIQUE: A complete multi-planar MRI was performed. FINDINGS: MEDIAL COMPARTMENT MEDIAL MENISCUS: There is a complex tear of the posterior horn of the medial meniscus. There is also large vertical tear at the posterior body with anterior and medial extrusion of the medial meniscus. There is meniscal degeneration. HYALINE CARTILAGE: There is irregular thinning of the articular cartilage. BONES: There is mild marrow edema at the anterior medial tibial plateau. MCL AND MEDIAL CAPSULE: There is a large popliteal cyst. LATERAL COMPARTMENT LATERAL MENISCUS: Normal. No visible tear or significant degeneration. HYALINE CARTILAGE: Normal. No visible defect. BONES: Normal. No marrow pathology, fracture, or significant arthropathy. LCL/POSTEROLAT. COMPLEX: Normal lateral collateral ligament, fascicles, lateral capsule and ligaments. ACL: Normal appearing ligament. PCL: Normal appearing ligament. MENISCOFEMORAL: The superior and inferior medial meniscofemoral ligaments are thickened and wavy consistent with tear. PATELLOFEMORAL: There is mild narrowing the lateral patellofemoral compartment. EFFUSION: None. No synovitis or loose bodies. OTHER: There is edema in the Hoffa's fat pad. CONCLUSION: Continued Report - Page 2 of 2 Patient: CORIE LUGO Phone#: : 1970 Age: 50 Gender: F Pt. Type: Out Account: [id number] Location: 052 Ordering: AVILA WARNER Exam Date: 04/01/2021/10:54 Family Phys: JOSHUA CHINYERE Charge Code: [id number] Physician: Mcpherson Order #: [id number] DLP Dose#: 1. Complex tear at the posterior horn of the medial meniscus. There is large vertical tear of with anterior and medial extrusion of the body and anterior portions of the meniscus. There is medial compartment narrowing and hyaline cartilage degeneration. 2. Large popliteal cyst is present. Dictated by: Karla Rutledge MD on 04/01/2021 at 15:40 Approved by: Karla Rutledge MD on 04/01/2021 at 16:00 Normal [facility] Laboratory - Chemistry and C hemistry - challengeon 12-24-2020 Albumin [Mass/Vol] 4.7 g/dL Normal 3.6 - 5.1 g/dL [facility], [facility].; [facility], [employer] Albumin/Globulin [Mass ratio] 2.0 {ratio} Normal 1.0 - 2.5 [facility], [facility].; [facility], [employer] ALP [Catalytic activity/Vol] 68 U/L Normal 37 - 153 U/L [facility], [facility].; [facility], [employer] ALT [Catalytic activity/Vol] 18 U/L Normal 6 - 29 U/L [facility], [facility].; [place] [employer] [facility], [facility] AST [Catalytic activity/Vol] 13 U/L Normal 10 - 35 U/L [facility], [facility].; [facility], [employer] Bilirubin [Mass/Vol] 0.2 mg/dL Normal 0.2 - 1 .2 mg/dL [facility], [facility].; [place] [email or web address] Calcium [Mass/Vol] 9.9 mg/dL Normal 8.6 - 10. 4 mg/dL [facility], [facility].; [place] [email or web address] Chloride [Moles/Vol] 106 mmol/L Normal 98 - 11 0 mmol/L [facility], [facility].; [place] [email or web address] CO2 [Moles/Vol] 27 mmol/L Normal 20 - 32 mmol/L [facility], [facility].; [place] [email or web address] Creatinine [Mass/Vol] 0.87 mg/dL Normal 0.50 - 1.05 mg/dL [facility], [facility].; [place] [email or web address] GFR/1.73 sq M.predicted among blacks MDRD (S/P/Bld) [Vol rate/Area] 89 mL/min/{1.73_m2} Normal [facility], [facility].; [place] [email or web address] Glucose [Mass/Vol] 95 mg/dL Normal 65 - 99 mg/dL [facility], [facility].; [place] [email or web address] Potassium [Moles/Vol] 4.6 mmol/L Normal 3.5 - 5.3 mmol/L [facility].; [facility]. Protein [Mass/Vol] 7.0 g/dL Normal 6.1 - 8.1 g/dL [facility].; [facility], [facility]. Sodium [Moles/Vol] 142 mmol/L Normal 135 - 146 mmol/L [facility], [facility].; [facility], [facility] TSH Qn 1.41 m[IU]/L Normal [facility].; [place] [email or web address], [facility] Urea nitrogen [Mass/Vol] 28 mg/dL Abnormal 7 - 25 mg/d L [facility].; [facility], [facility]. Urea nitrogen/Creatinine [Mass ratio] 32 mg/mg Abnormal 6 - 22 [facility].; [place] [email or web address], [facility]. Laboratory - Hematology and Cell countson 12-24-2020 Basophils (Bld) [#/Vol] 0.05 10*3/uL Normal 0 - 200 {cells/uL} [facility].; [place] [email or web address], [facility]. Basophils/100 WBC (Bld) 0.6 % Normal [facility].; [facility], [facility] Eosinophils (Bld) [#/Vol] 0.116 10*3/uL Normal 15 - 500 {cells/uL} [facility].; [place] [email or web address], [facility]. Eosinophils/100 WBC (Bld) 1.4 % Normal [facility].; [place] [email or web address], [facility] Erythrocyte distribution width (RBC) [Ratio] 12.6 % Normal 11.0 - 15.0 % [facility], [facility].; [place] [email or web address], [facility]. Hematocrit (Bld) [Volume fraction] 44.5 % Normal 35.0 - 45.0 % [facility].; [place] [email or web address], [facility]. Hemoglobin (Bld) [Mass/Vol] 14.8 g/dL Normal 11.7 - 15.5 g/dL [facility], [facility].; [place] [email or web address], [facility] Lymphocytes (Bld) [#/Vol] 2.191 10*3/uL Normal 850 - 3900 {cells/uL} [facility].; [place] [email or web address], [facility]. Lymphocytes/100 WBC (Bld) 26.4 % Normal [facility].; [facility], [facility]. MCH (RBC) [Entitic mass] 30.0 pg Normal 27. 0 - 33.0 pg [facility], [facility].; [place] [email or web address] MCHC (RBC) [Mass/Vol] 33.3 g/dL Normal 32.0 - 36.0 g/dL [facility], [facility].; [place] [email or web address], [facility]. MCV (RBC) [Entitic vol] 90.1 fL Normal 80.0 - 100.0 fL [facility], [facility].; [place] [employer] [facility], [facility]. Monocytes (Bld) [#/Vol] 0.672 10*3/uL Normal 200 - 950 {cells/uL} [facility], [facility].; [place] [email or web address] Monocytes/100 WBC (Bld) 8.1 % Normal [facility].; [facility], [facility]. Neutrophils (Bld) [#/Vol] 5.271 10*3/uL Normal 1500 - 7800 {cells/uL} [facility], [facility].; [place] [email or web address], [employer]. Neutrophils/100 WBC (Bld) 63.5 % Normal [facility].; [place] [email or web address] Platelet mean volume (Bld) [Entitic vol] 11.2 fL Normal 7.5 - 12.5 fL [facility], [facility].; [place] [email or web address] Platelets (Bld) [#/Vol] 279 10*3/uL Normal 140 - 400 [facility].; [place] [email or web address] RBC (Bld) [#/Vol] 4.94 10*6/uL Normal 3.80 - 5.1 0 {Million/uL} [facility] [employer] [facility].; [place] [email or web address] WBC (Bld) [#/Vol] 8.3 10*3/uL Normal 3.8 - 10.8 [facility], [facility].; [place] [email or web address], [employer]. No Panel Informationon 12-24 eGFR NON-AFR. SOMALI 77 Normal [facility] [employer] [place] [email or web address] GLOBULIN 2.3 Normal 1.9 - 3.7 [facility].; [email or web address] Laboratory - Cytologyon 09-03 Microscopic observation Cyto stain Nom (Cvx) Normal [facility].; [place] [employer] [facility]. Laboratory - Chemistry and C hemistry - challengeon 09-15-2010 Bilirubin Ql (U) Negative Normal [facility].; [place] [employer]. Ketones Ql (U) Negative Normal [facility].; [employer], [employer]. pH (U) 5.5 [pH] Normal 4.6 - 8.0 [facility].; [email or web address]. Specific gravity (U) [Rel density] 1.005 Normal 1.001 - 1.025 [facility].; [employer], [employer]. Laboratory - Cytologyon 09-03 Cytology report Cyto stain Doc (Cvx/Vag) SEE NOTE Normal [facility].; [place] [employer]. Laboratory - Hematology and Cell countson 09-15-2010 Hemoglobin Ql (U) small Abnormal [facility].; [email or web address]. Laboratory - Specimen inform ationon 09-15-2010 Appearance (U) clear Normal [facility].; [place] [employer]. Color (U) yellow Normal [facility].; [email or web address]. Laboratory - Urinalysison Glucose Test strip (U) [Mass/Vol] Negative Normal [facility].; [email or web address]. Leukocyte esterase Test strip Ql (U) Negative Normal [facility].; [email or web address]. Nitrite Ql (U) Negative Normal [facility].; [email or web address]. Protein Ql (U) Negative Normal [facility].; [employer], [employer]. No Panel Informationon 09-15 UA - UROBILINOGEN 0.2 mg/dL Normal [facility] [employer] [facility].; [email or web address] Laboratory - Chemistry and C hemistry - challengeon 08-07-2010 Cholesterol [Mass/Vol] 207 mg/dL Abnormal 0 - 200 mg/dL [facility] Cholesterol in HDL [Mass/Vol] 49 mg/dL Normal 40 - 60 mg/dL [facility]; [facility] Cholesterol in LDL [Mass/Vol] N/A Normal 0 - 100 mg/dL [facility]. Glucose [Mass/Vol] 113 mg/dL Abnormal 60 - 100 mg/dL [facility] Triglyceride [Mass/Vol] mg/dL Abnormal 0 - 150 mg/d L [facility] Vital Signs Date Time Vital Sign Value Performing Clinician Facility 06-13-2025 17:40-0400 Body temperature 97.4 [degF] Dr. Joshua Whitlock MD Work Phone: [phone] [place] [address] 06-13-2025 17:40-0400 Diastolic blood pressure 79 mm[Hg] Dr. Joshua Whitlock MD Work Phone: [phone] [place] [address] 06-13-2025 17:40-0400 Heart rate 69 /min Dr. Joshua Whitlock MD Work Phone: [phone] [place] [address] 06-13-2025 17:40-0400 Respiratory rate 17 /min Dr. Joshua Whitlock MD Work Phone: [phone] [address] 06-13-2025 17:40-0400 SaO2% (BldA) [Mass fraction] 100 % Dr. Joshua Whitlock MD Work Phone: [phone] [place] [address] 06-13-2025 17:40-0400 Systolic blood pressure 127 mm[Hg] Dr. Joshua Whitlock MD Work Phone: [phone] [address] 06-13-2025 13:36-0400 Body height 157.[address] Joshua Whitlock MD Work Phone: [phone] [place] [address] 06-13-2025 13:36-0400 Body mass index (BMI) [Ratio] 34.2 kg/m2 Dr. Joshua Whitlock MD Work Phone: [phone] [address] 06-13-2025 13:36-0400 Body weight 84.[address] Joshua Whitlock MD Work Phone: [facility] 05-28-2025 13:52-0400 Body height 157.48 cm Lili Downey LPN [facility], [facility] [employer] 05-28-2025 13:52-0400 Body mass index (BMI) [Ratio] 34.93 kg/m2 Lili Downey LPN [facility], [facility].; [employer] 05-28-2025 13:52-0400 Body surface area Derived from formula 1.87 m2 Lili Downey LPN [facility], [facility] [employer] 05-28-2025 13:52-0400 Body weight 86.64 kg Lili Downey LPN [facility] [employer] 05-28-2025 13:52-0400 Diastolic blood pressure 72 mm[Hg] Lili Downey LPN [facility] [employer] Comment on above: Patient Position: Sitting; Cuff Location : Left Arm; Cuff Size: Standard 05-28-2025 13:52-0400 Heart rate 80 /min Lili Downey LPN [facility] [employer] Comment on above: Pattern: Regular 05-28-2025 13:52-0400 Systolic blood pressure 109 mm[Hg] Lili Downey LPN [facility] [employer] Comment on above: Patient Position: Sitting; Cuff Location : Left Arm; Cuff Size: Standard 02-07-2025 13:23-0400 Body height 157.48 cm Flakito Grady LPN [facility] [employer] 02-07-2025 13:23-0400 Body mass index (BMI) [Ratio] 34.57 kg/m2 Flakito Grady LPN [place] [employer] [facility], [facility].; [employer] 02-07-2025 13:23-0400 Body surface area Derived from formula 1.87 m2 Flakito Grady LPN [facility] [employer] 02-07-2025 13:23-0400 Body weight 85.73 kg Flakito Grady LPN [facility], [facility].; [facility], [facility]. 02-07-2025 13:23-0400 Diastolic blood pressure 70 mm[Hg] Flakito Grady LPN [facility] Comment on above: Patient Position: Sitting; Cuff Location : Left Arm; Cuff Size: Standard 02-07-2025 13:23-0400 Heart rate 94 /min Flakito Grady LPN [facility], [facility] Comment on above: Pattern: Regular 02-07-2025 13:23-0400 Systolic blood pressure 104 mm[Hg] Flakito Grady LPN [facility], [facility].; [place] [employer] [facility], [employer]. Comment on above: Patient Position: Sitting; Cuff Location : Left Arm; Cuff Size: Standard 09-13-2024 13:50-0500 Body height 157.48 cm Flakito Grady GAMING DIRECTOR [facility], [facility].; [facility] 09-13-2024 13:50-0500 Body mass index (BMI) [Ratio] 37.86 kg/m2 Flakito Grady GAMING DIRECTOR [facility], [facility].; [facility], [facility]. 09-13-2024 13:50-0500 Body surface area Derived from formula 1.94 m2 Flakito Grady GAMING DIRECTOR [facility], [facility].; [facility] 09-13-2024 13:50-0500 Body temperature 97 [degF] Flakito Grady GAMING DIRECTOR [facility], [facility].; [facility], [facility]. 09-13-2024 13:50-0500 Body weight 93.9 kg Flakito Grady LPN [facility], [facility].; [place] [employer] [facility], [facility]. 09-13-2024 13:50-0500 Diastolic blood pressure 72 mm[Hg] Flakito Grady LPN [facility], [facility].; [place] [employer] [facility], [facility]. Comment on above: Patient Position: Sitting; Cuff Location : Left Arm; Cuff Size: Standard 09-13-2024 13:50-0500 Heart rate 72 /min Flakitofred Grady GAMING DIRECTOR [facility], [facility].; [place] [employer] [facility] [employer]. Comment on above: Pattern: Regular 09-13-2024 13:50-0500 Inhaled oxygen concentration 21 % Flakito Grady GAMING DIRECTOR [facility], [facility].; [facility], [employer]. Comment on above: Room air 09-13-2024 13:50-0500 SaO2% (BldA) [Mass fraction] 98 % Flakito Grady LPN [facility], [facility].; [place] [employer] [facility], [facility] 09-13-2024 13:50-0500 Systolic blood pressure 111 mm[Hg] Flakito Grady LPN [facility] [place] [employer] [facility], [employer]. Comment on above: Patient Position: Sitting; Cuff Location : Left Arm; Cuff Size: Standard 08-11-2024 11:10-050 Body height 157.48 cm Flakito Grady GAMING DIRECTOR [facility], [facility].; [place] [employer] [facility], [employer]. 08-11-2024 11:10-0500 Body mass index (BMI) [Ratio] 37.49 kg/m2 Flakito Grady GAMING DIRECTOR [facility], [facility].; [place] [employer] [facility], [facility]. 08-11-2024 11:10-0500 Body surface area Derived from formula 1.93 m2 Flakito Grady GAMING DIRECTOR [facility], [facility].; [facility], [facility]. 08-11-2024 11:10-0500 Body weight 92.99 kg Flakito Grady LPN [facility], [facility].; [place] [employer] [facility], [employer]. 08-11-2024 11:10-0500 Diastolic blood pressure 71 mm[Hg] Flakito Grady LPN [facility], [facility].; [place] [employer] [facility]. Comment on above: Patient Position: Sitting; Cuff Location : Left Arm; Cuff Size: Standard 08-11-2024 11:10-0500 Heart rate 67 /min Flakito Grady GAMING DIRECTOR [facility], [facility].; [email or web address] Comment on above: Pattern: Regular 08-11-2024 11:10-0500 Systolic blood pressure 103 mm[Hg] Flakito Grady LPN [facility] [email or web address] Comment on above: Patient Position: Sitting; Cuff Location : Left Arm; Cuff Size: Standard 10-25-2023 08:14-0500 Body height 157.48 cm Heather Lauren LPN [facility] [employer] 10-25-2023 08:14-0500 Body mass index (BMI) [Ratio] 38.41 kg/m2 Heather Lauren GAMING DIRECTOR [facility] [email or web address] 10-25-2023 08:14-0500 Body surface area Derived from formula 1.95 m2 Heather Lauren [facility], [facility].; [employer] 10-25-2023 08:14-0500 Body weight 95.26 kg Heather Lauren [facility], [facility].; [employer] 10-25-2023 08:14-0500 Diastolic blood pressure 88 mm[Hg] Heather Lauren GAMING DIRECTOR [facility] [employer] Comment on above: Patient Position: Sitting; Cuff Location : Left Arm; Cuff Size: Large 10-25-2023 08:14-0500 Heart rate 73 /min Heather Lauren GAMING DIRECTOR [facility] [employer] Comment on above: Pattern: Regular 10-25-2023 08:14-0500 Systolic blood pressure 118 mm[Hg] Heather Lauren [facility], [facility] [employer] Comment on above: Patient Position: Sitting; Cuff Location : Left Arm; Cuff Size: Large 04-02-2023 10:24-0400 Body height 157.48 cm Grace Garcia MA [facility] [employer] 04-02-2023 10:24-0400 Body mass index (BMI) [Ratio] 37.91 kg/m2 Grace Garcia MA [place] [employer] [facility], [facility].; [employer] 04-02-2023 10:24-0400 Body surface area Derived from formula 1.94 m2 Grace Garcia MA [facility] [employer] 04-02-2023 10:24-0400 Body weight 94.01 kg Grace Garcia MA [place] [employer] [facility], [facility].; [facility] 04-02-2023 10:24-0400 Diastolic blood pressure 86 mm[Hg] Grace Garcia [facility]. Comment on above: Patient Position: Sitting; Cuff Location : Left Arm; Cuff Size: Standard 04-02-2023 10:24-0400 Heart rate 71 /min Grace Garcia [facility].; [place] [employer]. Comment on above: Pattern: Regular 04-02-2023 10:24-0400 Systolic blood pressure 136 mm[Hg] Grace Garcia MA [facility].; [place] [employer]. Comment on above: Patient Position: Sitting; Cuff Location : Left Arm; Cuff Size: Standard 10-14-2022 09:26-0500 Body height 157.48 cm Lili Mcleod [facility].; [facility]. 10-14-2022 09:26-0500 Body mass index (BMI) [Ratio] 38.41 kg/m2 Lili Mcleod MA [facility].; [place] [email or web address], [employer]. 10-14-2022 09:26-0500 Body surface area Derived from formula 1.95 m2 Lili Mcleod MA [facility].; [place] [email or web address], [facility]. 10-14-2022 09:26-0500 Body temperature 98.2 [degF] [facility].; [email or web address] Comment on above: Method: Tympanic 10-14-2022 09:26-0500 Body weight 95.26 kg Lili Mcleod MA [facility].; [place] [employer]. 10-14-2022 09:26-0500 Diastolic blood pressure 75 mm[Hg] Lili Mcleod MA [facility].; [email or web address] Comment on above: Patient Position: Sitting; Cuff Location : Left Arm; Cuff Size: Standard 10-14-2022 09:26-0500 Heart rate 87 /min Lili Mcleod MA [facility].; [email or web address] Comment on above: Pattern: Regular 10-14-2022 09:26-0500 Inhaled oxygen concentration 20 % Lili Mcleod MA [facility].; [facility]. Comment on above: Room air 10-14-2022 09:26-0500 Inhaled oxygen concentration 21 % Lili [facility]cleod [facility]. Comment on above: Room air 10-14-2022 09:26-0500 SaO2% (BldA) [Mass fraction] 98 % Lili Mcleod MA [facility]. 10-14-2022 09:26-0500 Systolic blood pressure 108 mm[Hg] Lili Mcleod MA [facility].; [facility]. Comment on above: Patient Position: Sitting; Cuff Location : Left Arm; Cuff Size: Standard 09-15-2022 11:17-0500 Body height 157.48 cm Lili Mcleod MA [facility], [facility].; [facility]. 09-15-2022 11:17-0500 Body mass index (BMI) [Ratio] 38.77 kg/m2 Lili Mcleod MA [facility].; [facility] [employer] 09-15-2022 11:17-0500 Body surface area Derived from formula 1.96 m2 Lili Mcleod MA [facility], [facility].; [facility]. 09-15-2022 11:17-0500 Body temperature 97.3 [degF] Lili Mcleod MA [facility], [facility].; [place] [employer]. Comment on above: Method: Tympanic 09-15-2022 11:170500 Body weight 96.16 kg Lili Mcleod MA [facility].; [place] [employer]. 09-15-2022 11:17-0500 Diastolic blood pressure 80 mm[Hg] Lili Mcleod MA [facility].; [place] [employer]. Comment on above: Patient Position: Sitting; Cuff Location : Left Arm; Cuff Size: Standard 09-15-2022 11:17-0500 Heart rate 82 /min Llii Mcleod MA [facility].; [place] [employer]. Comment on above: Pattern: Regular 09-15-2022 11:17-0500 Inhaled oxygen concentration 20 % Lili Mcleod MA [facility], [facility].; [place] [employer] [facility]. Comment on above: Room air 09-15-2022 11:170500 Inhaled oxygen concentration 21 % Lili Mcleod [facility] [place] [employer]. Comment on above: Room air 09-15-2022 11:170500 SaO2% (BldA) [Mass fraction] 98 % Lili Mcleod MA [facility].; [place] [employer]. 09-15-2022 11:17-0500 Systolic blood pressure 121 mm[Hg] Lili Mcleod MA [facility].; [place] [employer] [facility], [employer]. Comment on above: Patient Position: Sitting; Cuff Location : Left Arm; Cuff Size: Standard 06-04-2022 07:25-0400 Body height 157.48 cm Lili Downey LPN [facility], [facility].; [place] [employer] [facility], [facility]. 06-04-2022 07:25-0400 Body mass index (BMI) [Ratio] 38.23 kg/m2 Lili Downey LPN [facility], [facility].; [place] [employer] [facility], [facility]. 06-04-2022 07:25-0400 Body surface area Derived from formula 1.95 m2 Lili Downey LPN [facility], [facility].; [place] [email or web address], [facility]. 06-04-2022 07:25-0400 Body weight 94.8 kg Lili Downey LPN [facility], [facility].; [place] [employer] [facility], [facility]. 06-04-2022 07:25-0400 Diastolic blood pressure 71 mm[Hg] Lili Downey LPN [facility] [email or web address] Comment on above: Patient Position: Sitting; Cuff Location : Left Arm; Cuff Size: Standard 06-04-2022 07:25-0400 Heart rate 78 /min Lili Downey LPN [facility], [facility].; [email or web address] Comment on above: Pattern: Regular 06-04-2022 07:25-0400 Systolic blood pressure 106 mm[Hg] Lili Downey LPN [facility], [facility].; [email or web address] Comment on above: Patient Position: Sitting; Cuff Location : Left Arm; Cuff Size: Standard 04-07-2022 07:46-0400 Body height 157.48 cm Heather Lauren LPN [facility] [employer] [facility], [employer]. 04-07-2022 07:46-0400 Body mass index (BMI) [Ratio] 37.86 kg/m2 Heather Lauren GAMING DIRECTOR [facility] [employer] 04-07-2022 07:46-0400 Body surface area Derived from formula 1.94 m2 Heather Lauren GAMING DIRECTOR [facility] [employer], [employer]. 04-07-2022 07:46-0400 Body weight 93.9 kg Heather Lauren GAMING DIRECTOR [facility] [employer], [employer]. 04-07-2022 07:46-0400 Diastolic blood pressure 64 mm[Hg] Heather Lauren GAMING DIRECTOR [facility] [employer], [employer]. Comment on above: Patient Position: Sitting; Cuff Location : Left Arm; Cuff Size: Large 04-07-2022 07:46-0400 Heart rate 88 /min Heather Lauren GAMING DIRECTOR [facility] [employer], [employer]. Comment on above: Pattern: Regular 04-07-2022 07:46-0400 Systolic blood pressure 106 mm[Hg] Heather Lauren GAMING DIRECTOR [facility] [employer], [employer]. Comment on above: Patient Position: Sitting; Cuff Location : Left Arm; Cuff Size: Large 12-24-2020 11:04-0400 Body height 157.48 cm Heather Lauren GAMING DIRECTOR [facility] [employer], [employer]. 12-24-2020 11:04-0400 Body mass index (BMI) [Ratio] 37.68 kg/m2 Heather Lauren [facility] [employer] [facility], [facility] [employer] 12-24-2020 11:04-0400 Body surface area Derived from formula 1.94 m2 Heather Lauren GAMING DIRECTOR [place] [employer] [facility], [facility].; [employer], [employer]. 12-24-2020 11:04-0400 Body weight 93.44 kg Heather Lauren [facility], [facility].; [email or web address] 12-24-2020 11:04-0400 Diastolic blood pressure 72 mm[Hg] Heather Lauren GAMING DIRECTOR [facility] [employer]. Comment on above: Patient Position: Sitting; Cuff Location : Left Arm; Cuff Size: Large 12-24-2020 11:04-0400 Heart rate 80 /min Heather Lauren [facility], [facility] [employer]. Comment on above: Pattern: Regular 12-24-2020 11:04-0400 Systolic blood pressure 138 mm[Hg] Heather Lauren [facility], [employer].; [employer]. Comment on above: Patient Position: Sitting; Cuff Location : Left Arm; Cuff Size: Large 12-20-2020 07:29-0400 Body height 157.48 cm Deinse Salgado RN [facility], [facility].; [employer]. 12-20-2020 07:29-0400 Body mass index (BMI) [Ratio] 37.68 kg/m2 Denise Salgado RN [place] [employer] [facility].; [email or web address] 12-20-2020 07:29-0400 Body surface area Derived from formula 1.94 m2 Denise Salgado RN [place] [employer] [facility], [facility].; [employer] [facility]. 12-20-2020 07:29-0400 Body temperature 97.2 [degF] Denise Salgado RN [place] [employer] [facility].; [employer]. Comment on above: Method: Tympanic 12-20-2020 07:290400 Body weight 93.44 kg Denise Salgado RN [place] [employer] [facility] [facility].; [email or web address] 12-20-2020 07:29-0400 Diastolic blood pressure 73 mm[Hg] Denise Salgado RN [place] [employer] [facility] [facility].; [employer]. Comment on above: Patient Position: Sitting; Cuff Location : Left Arm; Cuff Size: Large 12-20-2020 07:29-0400 Heart rate 86 /min Denise Salgado RN [facility] [employer], [employer]. Comment on above: Pattern: Regular 12-20-2020 07:29-0400 Systolic blood pressure 121 mm[Hg] Denise Salgado RN [facility] [employer], [employer]. Comment on above: Patient Position: Sitting; Cuff Location : Left Arm; Cuff Size: Large 02-07-2020 09:50-0400 Body height 157.48 cm Heather John [place] GAMING DIRECTOR [facility] [employer], [employer]. 02-07-2020 09:50-0400 Body mass index (BMI) [Ratio] 34.93 kg/m2 Maddi Xin GAMING DIRECTOR [facility] [employer] 02-07-2020 09:50-0400 Body surface area Derived from formula 1.87 m2 Maddi Stuckey GAMING DIRECTOR [facility] [employer] [facility], [employer]. 02-07-2020 09:50-0400 Body weight 86.64 kg Maddi [place] GAMING DIRECTOR [facility] [employer], [employer]. 02-07-2020 09:50-0400 Diastolic blood pressure 62 mm[Hg] Maddi Xin GAMING DIRECTOR [facility] [employer], [employer]. Comment on above: Patient Position: Sitting; Cuff Location : Left Arm; Cuff Size: Large 02-07-2020 09:50-0400 Heart rate 82 /min MaddiDora Lauren LPN [facility] [employer], [employer]. Comment on above: Pattern: Regular 02-07-2020 09:50-0400 Systolic blood pressure 107 mm[Hg] MaddiDora Lauren LPN [facility] [employer], [employer]. Comment on above: Patient Position: Sitting; Cuff Location : Left Arm; Cuff Size: Large 01-06-2019 11:48-0400 Body height 157.48 cm Denise Salgado RN [facility] [employer], [employer]. 01-06-2019 11:48-0400 Body mass index (BMI) [Ratio] 36.58 kg/m2 Denise Salgado RN [email or web address].; [employer]. 01-06-2019 11:48-0400 Body surface area Derived from formula 1.91 m2 Denise Salgado RN [employer] 01-06-2019 11:48-0400 Body temperature 98.4 [degF] Denise Salgado RN [email or web address].; [employer]. Comment on above: Method: Tympanic 01-06-2019 11:48-0400 Body weight 90.72 kg Denise Salgado RN [employer].; [employer]. 01-06-2019 11:48-0400 Diastolic blood pressure 73 mm[Hg] Denise Salgado RN [email or web address].; [employer]. Comment on above: Patient Position: Sitting; Cuff Location : Left Arm; Cuff Size: Standard 01-06-2019 11:48-0400 Heart rate 92 /min Denise Salgado RN [employer].; [employer]. Comment on above: Pattern: Regular 01-06-2019 11:48-0400 Systolic blood pressure 107 mm[Hg] Denise Salgado RN [email or web address].; [employer]. Comment on above: Patient Position: Sitting; Cuff Location : Left Arm; Cuff Size: Standard 05-31-2018 08:57-0400 Body height 157.48 cm Heather Lauren LPN [employer], [employer].; [employer]. 05-31-2018 08:57-0400 Body mass index (BMI) [Ratio] 35.48 kg/m2 Heather Lauren LPN [employer].; [employer]. 05-31-2018 08:57-0400 Body surface area Derived from formula 1.89 m2 Heather Lauren LPN [employer]. 05-31-2018 08:57-0400 Body weight 88 kg Heather Lauren LPN [email or web address].; [employer]. 05-31-2018 08:57-0400 Diastolic blood pressure 79 mm[Hg] Heather [facility] [employer]. Comment on above: Patient Position: Sitting; Cuff Location : Left Arm; Cuff Size: Large 05-31-2018 08:57-0400 Heart rate 94 /min Heather Lauren [facility] [email or web address], [employer]. Comment on above: Pattern: Regular 05-31-2018 08:57-0400 Systolic blood pressure 114 mm[Hg] Heather Lauren [facility] [employer], [employer]. Comment on above: Patient Position: Sitting; Cuff Location : Left Arm; Cuff Size: Large 01-22-2017 10:03-0400 Body height 157.48 cm Joshua Whitlock MD Work Phone: [employer], [employer] 01-22-2017 10:03-0400 Body mass index (BMI) [Ratio] 36.58 kg/m2 Joshua Whitlock MD Work Phone: [employer], [employer], [employer]. 01-22-2017 10:03-0400 Body surface area Derived from formula 1.91 m2 Joshua Whitlock MD Work Phone: [employer], [employer].; [employer]. 01-22-2017 10:03-0400 Body temperature 99.1 [degF] Joshua Whitlock MD Work Phone: [email or web address].; [employer]. Comment on above: Method: Tympanic 01-22-2017 10:03-0400 Body weight 90.72 kg Joshua Whitlock MD Work Phone: [employer].; [employer] 01-22-2017 10:03-0400 Diastolic blood pressure 81 mm[Hg] Joshua Whitlock MD Work Phone: [email or web address].; [employer]. Comment on above: Patient Position: Sitting; Cuff Location : Left Arm; Cuff Size: Standard 01-22-2017 10:03-0400 Heart rate 76 /min Joshua Whitlock MD Work Phone: [facility].; [employer]. Comment on above: Pattern: Regular 01-22-2017 10:03-0400 Systolic blood pressure 122 mm[Hg] Joshua Whitlock MD Work Phone: [facility], [employer].; [employer]. Comment on above: Patient Position: Sitting; Cuff Location : Left Arm; Cuff Size: Standard 01-15-2016 11:02-0400 Body height 157.48 cm Heather Lauren GAMING DIRECTOR [facility] [employer]. 01-15-2016 11:02-0400 Body mass index (BMI) [Ratio] 36.58 kg/m2 Heather Lauren [facility], Inc.; [employer] 01-15-2016 11:02-0400 Body surface area Derived from formula 1.91 m2 Heather Lauren [facility], [employer].; [employer], [employer]. 01-15-2016 11:02-0400 Body temperature 98.5 [degF] Heather Lauren [facility] [employer] [facility], [employer].; [employer]. Comment on above: Method: Tympanic 01-15-2016 11:02-0400 Body weight 90.72 kg Heather Lauren GAMING DIRECTOR [facility] [employer] 01-15-2016 11:02-0400 Diastolic blood pressure 70 mm[Hg] Heather Lauren GAMING DIRECTOR [place] [employer] [facility], [employer].; [employer]. Comment on above: Patient Position: Sitting; Cuff Location : Left Arm; Cuff Size: Large 01-15-2016 11:02-0400 Heart rate 71 /min Heather Lauren GAMING DIRECTOR [place] [employer] [facility], [employer] [facility]. Comment on above: Pattern: Regular 01-15-2016 11:02-0400 Inhaled oxygen concentration 20 % Heather Lauren [facility] [employer] [facility], [employer]. Comment on above: Room air 01-15-2016 11:02-0400 Inhaled oxygen concentration 21 % Heather Lauren [facility] [employer].; [facility]. Comment on above: Room air 01-15-2016 11:02-0400 SaO2% (BldA) [Mass fraction] 98 % Heather [facility].; [facility]. 01-15-2016 11:02-0400 Systolic blood pressure 103 mm[Hg] Heather [facility].; [facility]. Comment on above: Patient Position: Sitting; Cuff Location : Left Arm; Cuff Size: Large 11-21-2015 09:35-0500 Body height 157.48 cm Joshua Whitlock MD Work Phone: [employer].; [facility]. 11-21-2015 09:35-0500 Body mass index (BMI) [Ratio] 36.21 kg/m2 Joshua Whitlock MD Work Phone: [employer].; [facility]. 11-21-2015 09:35-0500 Body surface area Derived from formula 1.9 m2 Joshua Whitlock MD Work Phone: [employer].; [facility]. 11-21-2015 09:35-0500 Body temperature 97.4 [degF] Joshua Whitlock MD Work Phone: [employer].; [facility]. 11-21-2015 09:35-0500 Body weight 89.81 kg Joshua Whitlock MD Work Phone: [employer].; [facility]. 11-21-2015 09:35-0500 Diastolic blood pressure 65 mm[Hg] Joshua Whitlock MD Work Phone: [employer].; [facility]. Comment on above: Patient Position: Sitting; Cuff Location : Left Arm; Cuff Size: Standard 11-21-2015 09:35-0500 Heart rate 84 /min Joshua Whitlock MD Work Phone: [employer].; [facility]. Comment on above: Pattern: Regular 11-21-2015 09:35-0500 Systolic blood pressure 116 mm[Hg] Joshua Whitlock MD Work Phone: [employer].; [facility]. Comment on above: Patient Position: Sitting; Cuff Location : Left Arm; Cuff Size: Standard 09-16-2015 14:17-0500 Body weight 89.36 kg Katya Almaraz LPN [email or web address].; [facility]. 09-16-2015 14:17-0500 Diastolic blood pressure 61 mm[Hg] Katya Almaraz LPN [email or web address].; [employer]. Comment on above: Patient Position: Sitting; Cuff Location : Left Arm; Cuff Size: Standard 09-16-2015 14:17-0500 Heart rate 79 /min Katya Almaraz LPN [email or web address].; [employer]. Comment on above: Pattern: Regular 09-16-2015 14:17-0500 Systolic blood pressure 107 mm[Hg] Katya Nakia Sung SAL[email or web address].; [employer]. Comment on above: Patient Position: Sitting; Cuff Location : Left Arm; Cuff Size: Standard 09-13-2015 10:35-0500 Body height 157.48 cm Joshua Whitlock MD Work Phone: [employer].; [facility]. 09-13-2015 10:35-0500 Body mass index (BMI) [Ratio] 35.48 kg/m2 Joshua Whitlock MD Work Phone: [employer].; [facility]. 09-13-2015 10:35-0500 Body surface area Derived from formula 1.89 m2 Joshua Whitlock MD Work Phone: [employer].; [facility]. 09-13-2015 10:35-0500 Body weight 88 kg Joshua Whitlock MD Work Phone: [employer].; [facility]. 09-13-2015 10:35-0500 Diastolic blood pressure 65 mm[Hg] Joshua Whitlock MD Work Phone: [employer].; [facility]. Comment on above: Patient Position: Sitting; Cuff Location : Left Arm; Cuff Size: Standard 09-13-2015 10:35-0500 Heart rate 86 /min Joshua Whitlock MD Work Phone: [employer].; [facility]. Comment on above: Pattern: Regular 09-13-2015 10:35-0500 Systolic blood pressure 100 mm[Hg] Joshua Whitlock MD Work Phone: [employer].; [facility]. Comment on above: Patient Position: Sitting; Cuff Location : Left Arm; Cuff Size: Standard 03-15-2015 10:31-0400 Body height 157.48 cm Joshua Whitlock MD Work Phone: [employer].; [employer] 03-15-2015 10:31-0400 Body mass index (BMI) [Ratio] 33.65 kg/m2 Joshua Whitlock MD Work Phone: [facility].; [facility]. 03-15-2015 10:31-0400 Body surface area Derived from formula 1.85 m2 Joshua Whitlock MD Work Phone: [employer].; [facility]. 03-15-2015 10:31-0400 Body weight 83.46 kg Joshua Whitlock MD Work Phone: [employer].; [facility]. 03-15-2015 10:31-0400 Diastolic blood pressure 71 mm[Hg] Joshua Whitlock MD Work Phone: [employer].; [facility]. Comment on above: Patient Position: Sitting; Cuff Location : Left Arm; Cuff Size: Standard 03-15-2015 10:31-0400 Heart rate 82 /min Joshua Whitlock MD Work Phone: [employer].; [facility]. Comment on above: Pattern: Regular 03-15-2015 10:31-0400 Systolic blood pressure 105 mm[Hg] Joshua Whitlock MD Work Phone: [facility], [employer].; [employer] [facility]. Comment on above: Patient Position: Sitting; Cuff Location : Left Arm; Cuff Size: Standard 12-11-2014 11:02-0400 Body height 157.48 cm Heather Lauren GAMING DIRECT[employer] [facility], Inc.; [employer] [facility], [employer]. 12-11-2014 11:02-0400 Body mass index (BMI) [Ratio] 34.02 kg/m2 Heather Lauren [facility], [facility].; [employer] [facility], [employer]. 12-11-2014 11:02-0400 Body surface area Derived from formula 1.85 m2 Maddi Xin [facility].; [email or web address], [employer]. 12-11-2014 11:02-0400 Body weight 84.37 kg Heather Lauren [facility], Inc.; [employer], [employer]. 12-11-2014 11:02-0400 Diastolic blood pressure 63 mm[Hg] Heather Lauren [facility], Inc.; [employer]. Comment on above: Patient Position: Sitting; Cuff Location : Left Arm; Cuff Size: Large 12-11-2014 11:02-0400 Heart rate 78 /min Heather Lauren [facility], Inc.; [employer]. Comment on above: Pattern: Regular 12-11-2014 11:02-0400 Systolic blood pressure 103 mm[Hg] Heather Lauren [facility], Inc.; [employer]. Comment on above: Patient Position: Sitting; Cuff Location : Left Arm; Cuff Size: Large 07-26-2013 14:44-0400 Body weight 86.64 kg Heather Lauren [facility], Inc.; [email or web address]. 07-26-2013 14:44-0400 Diastolic blood pressure 69 mm[Hg] Heather Lauren GAMING DIRECTOR [facility], [employer].; [employer]. Comment on above: Patient Position: Sitting; Cuff Location : Left Arm; Cuff Size: Large 07-26-2013 14:44-0400 Heart rate 85 /min Heather Lauren LPN [facility], Inc.; [employer] [facility], [employer]. Comment on above: Pattern: Regular 07-26-2013 14:44-0400 Systolic blood pressure 101 mm[Hg] Heather Lauren LPN [facility], Inc.; [employer], [employer]. Comment on above: Patient Position: Sitting; Cuff Location : Left Arm; Cuff Size: Large 02-28-2013 13:47-0400 Body height 157.48 cm Heather Lauren LPN [facility], Inc.; [employer], [employer]. 02-28-2013 13:47-0400 Body mass index (BMI) [Ratio] 33.47 kg/m2 Heather Lauren LPN [facility], Inc.; [employer], [employer]. 02-28-2013 13:47-0400 Body surface area Derived from formula 1.84 m2 Heather Lauren LPN [facility], Inc.; [employer], [employer]. 02-28-2013 13:47-0400 Body temperature 98.3 [degF] Heather Lauren LPN [facility], Inc.; [employer], [employer]. Comment on above: Method: Tympanic 02-28-2013 13:47-0400 Body weight 83.01 kg Heather Lauren LPN [facility], Inc.; [employer], [employer]. 02-28-2013 13:47-0400 Diastolic blood pressure 79 mm[Hg] Heather Lauren LPN [facility], Inc.; [employer], [employer]. Comment on above: Patient Position: Sitting; Cuff Location : Left Arm; Cuff Size: Large 02-28-2013 13:47-0400 Heart rate 69 /min Heather Lauren LPN [facility], [employer].; [employer]. Comment on above: Pattern: Regular 02-28-2013 13:47-0400 Inhaled oxygen concentration 20 % Heather Lauren LPN [facility], Inc.; [employer]. Comment on above: Room air 02-28-2013 13:47-0400 Inhaled oxygen concentration 21 % Heather Lauren LPN [facility], Inc.; [employer] [facility], [employer]. Comment on above: Room air 02-28-2013 13:47-0400 SaO2% (BldA) [Mass fraction] 99 % Heather Lauren GAMING DIRECTOR [facility], Inc.; [employer], [employer]. 02-28-2013 13:47-0400 Systolic blood pressure 115 mm[Hg] Heather Lauren [employer] [facility], Inc.; [employer], [employer]. Comment on above: Patient Position: Sitting; Cuff Location : Left Arm; Cuff Size: Large 06-27-2012 13:43-0400 Body height 157.48 cm Soumya Michaels LPN [facility], Inc.; [employer], [employer]. 06-27-2012 13:43-0400 Body mass index (BMI) [Ratio] 33.38 kg/m2 [facility], Inc.; [employer] 06-27-2012 13:43-0400 Body surface area Derived from formula 1.84 m2 Soumya Michaels LPN [facility], [facility].; [employer], [employer]. 06-27-2012 13:43-0400 Body temperature 98.4 [degF] Soumya Michaels [facility], Inc.; [employer], [employer]. Comment on above: Method: Tympanic 06-27-2012 13:43-0400 Body weight 82.78 kg Soumya Michaels LPN [facility], Inc.; [employer], [employer]. 06-27-2012 13:43-0400 Diastolic blood pressure 74 mm[Hg] Soumya Michaels LPN [place] [employer] [facility], Inc.; [employer], [employer]. Comment on above: Patient Position: Sitting; Cuff Location : Left Arm; Cuff Size: Standard 06-27-2012 13:43-0400 Heart rate 87 /min Soumya Michaels LPN [place] [employer] [facility], Inc.; [employer]. Comment on above: Pattern: Regular 06-27-2012 13:43-0400 Inhaled oxygen concentration 20 % Soumya Michaels LPN [facility], Inc.; [employer] [facility] [employer] [facility]. Comment on above: Room air 06-27-2012 13:43-0400 Inhaled oxygen concentration 21 % Soumya Brando SALV[employer]OR [facility], Inc.; [place] [employer]. Comment on above: Room air 06-27-2012 13:43-0400 SaO2% (BldA) [Mass fraction] 97 % Soumya Brando SALV[employer]OR [facility], Inc.; [email or web address]. 06-27-2012 13:43-0400 Systolic blood pressure 110 mm[Hg] Soumya Brando SAL[employer]OR [facility], Inc.; [employer], [employer]. Comment on above: Patient Position: Sitting; Cuff Location : Left Arm; Cuff Size: Standard 11-26-2011 08:58-0500 Body temperature 97.7 [degF] Soumya Weeric SALV[employer]OR [facility], Inc.; [email or web address]. Comment on above: Method: Tympanic 11-26-2011 08:58-0500 Body weight 82.67 kg Soumya Brando SALVADOR [facility], Inc.; [employer], [employer]. 11-26-2011 08:58-0500 Diastolic blood pressure 75 mm[Hg] Soumya Duncaneric SALVADOR [facility], [facility].; [email or web address]. Comment on above: Patient Position: Sitting; Cuff Location : Left Arm; Cuff Size: Standard 11-26-2011 08:58-0500 Heart rate 87 /min Soumya Brando SAL[place]OR [facility], Inc.; [email or web address]. Comment on above: Pattern: Regular 11-26-2011 08:58-0500 Inhaled oxygen concentration 20 % Soumya Michaels LPN [facility], Inc.; [email or web address]. Comment on above: Room air 11-26-2011 08:58-0500 Inhaled oxygen concentration 21 % Soumya Beckettd [employer] [facility], Inc.; [email or web address]. Comment on above: Room air 11-26-2011 08:58-0500 SaO2% (BldA) [Mass fraction] 96 % Soumya Wengerd [facility], Inc.; [employer], [employer]. 11-26-2011 08:58-0500 Systolic blood pressure 127 mm[Hg] Soumya Brando [facility], Inc.; [employer], [employer]. Comment on above: Patient Position: Sitting; Cuff Location : Left Arm; Cuff Size: Standard 09-25-2011 12:57-0500 Body height 157.48 cm Heather Lauren [facility], Inc.; [employer] 09-25-2011 12:57-0500 Body mass index (BMI) [Ratio] 33.1 kg/m2 Heather Lauren [facility], Inc.; [employer] 09-25-2011 12:57-0500 Body surface area Derived from formula 1.83 m2 Heather Lauren [facility] [employer] [facility], Inc.; [employer] 09-25-2011 12:57-0500 Body weight 82.1 kg Heather Lauren [facility] [employer] [facility], Inc.; [employer] 09-25-2011 12:57-0500 Diastolic blood pressure 77 mm[Hg] Heather Lauren [facility] [employer] [facility], Inc.; [employer], [employer]. Comment on above: Patient Position: Sitting; Cuff Location : Left Arm; Cuff Size: Large 09-25-2011 12:57-0500 Heart rate 73 /min Heather Lauren [facility], Inc.; [employer], [employer]. Comment on above: Pattern: Regular 09-25-2011 12:57-0500 Systolic blood pressure 110 mm[Hg] Heather Lauren [facility] [employer] [facility], Inc.; [employer], [employer]. Comment on above: Patient Position: Sitting; Cuff Location : Left Arm; Cuff Size: Large 12-29-2010 10:02-0400 Body weight 76.66 kg Joshua Whitlock MD Work Phone: [employer], [employer] 12-29-2010 10:02-0400 Diastolic blood pressure 73 mm[Hg] Joshua Whitlock MD Work Phone: [email or web address]; [employer] Comment on above: Patient Position: Sitting; Cuff Location : Left Arm; Cuff Size: Standard 12-29-2010 10:02-0400 Heart rate 87 /min Joshua Whitlock MD Work Phone: [email or web address]; [facility]. Comment on above: Pattern: Regular 12-29-2010 10:02-0400 Systolic blood pressure 117 mm[Hg] Joshua Whitlock MD Work Phone: [email or web address].; [employer]. Comment on above: Patient Position: Sitting; Cuff Location : Left Arm; Cuff Size: Standard 09-15-2010 13:01-0500 Body temperature 97.3 [degF] Joshua Whitlock MD Work Phone: [email or web address]; [facility]. Comment on above: Method: Tympanic 09-15-2010 13:01-0500 Body weight 74.84 kg Joshua Whitlock MD Work Phone: [email or web address]; [employer]. 09-15-2010 13:01-0500 Diastolic blood pressure 77 mm[Hg] Joshua Whitlock MD Work Phone: [email or web address]; [employer]. Comment on above: Patient Position: Sitting; Cuff Location : Left Arm; Cuff Size: Standard 09-15-2010 13:01-0500 Heart rate 89 /min Joshua Whitlock MD Work Phone: [email or web address]; [employer]. Comment on above: Pattern: Regular 09-15-2010 13:01-0500 Systolic blood pressure 123 mm[Hg] Joshua Whitlock MD Work Phone: [email or web address]; [facility]. Comment on above: Patient Position: Sitting; Cuff Location : Left Arm; Cuff Size: Standard Encounters Encounter Date Encounter Type Care Provider Facility Start: 06-15-2025 ambulatory Joshua Whitlock Facility:[facility] Start: 06-13-2025 Evaluation and manag ement of inpatient Dr. Maynor Blanton DO -Medical Surgical 3 Work Phone: Start: 05-28-2025 End: 05-28-2025 Periodic preventive med est patient 40-64yrs Joshua Whitlock MD Work Phone: [facility]. Start: 05-28-2025 End: 05-28-2025 Physical examination Josuha Whitlock MD Work Phone: [employer]; [facility]. Start: 05-28-2025 Physical examination Lili Downey LPN [facility]. Start: 03-08-2025 End: 03-12-2025 Orders Joshua Whitlock MD Work Phone: [facility]. Start: 03-08-2025 End: 03-08-2025 Medication Joshua Whitlock MD Work Phone: [employer] Start: 02-07-2025 End: 02-07-2025 Office outpatient visit 15 minutes Joshua Whitlock MD Work Phone: [facility]. Start: 02-07-2025 Review Joshua Whitlock MD Work Phone: [employer] Start: 11-30-2024 End: 11-30-2024 Historical Summary Joshua Whitlock MD Work Phone: [facility]. Start: 10-06-2024 End: 10-06-2024 Medication Joshua Whitlock MD Work Phone: [facility]. Start: 09-25-2024 End: 09-25-2024 ambulatory [facility] Facility:[facility] Start: 09-13-2024 End: 09-13-2024 Office outpatient visit 15 minutes Joshua Whitlock MD Work Phone: [facility]. Start: 09-06-2024 End: 09-06-2024 amb[place] [facility] [place]: 09-06-2024 End: 09-06-2024 ambulatory [facility] Facility:[facility] Start: 08-11-2024 End: 08-11-2024 Patient encounter procedure Joshua Whitlock MD Work Phone: [facility]. Start: 08-11-2024 End: 08-11-2024 Periodic preventive med est patient 40-64yrs Joshua Whitlock MD Work Phone: [place] [employer]. Start: 08-11-2024 End: 08-11-2024 Physical examination Joshua Whitlock MD Work Phone: [email or web address]; [facility]. Start: 07-31-2024 End: 08-01-2024 Orders Joshua Whitlock MD Work Phone: [email or web address]. Start: 07-12-2024 End: 07-13-2024 Orders Joshua Whitlock MD Work Phone: [email or web address]. Start: 07-12-2024 Review Joshua Whitlock MD Work Phone: [email or web address] Start: 11-11-2023 End: 11-11-[address] Joshua Whitlock Work Phone: [facility] Work Phone: Start: 11-11-2023 End: 11-11-[address] Joshua Whitlock Work Phone: [facility]-Laboratory, Specimen Work Phone: Start: 10-25-2023 Review Joshua Whitlock MD Work Phone: [email or web address] Start: 10-25-2023 End: 10-25-2023 Office outpatient visit 15 minutes Joshua Whitlock MD Work Phone: [email or web address]. Start: 10-25-2023 End: 10-25-2023 Physical examination Joshua Whitlock MD Work Phone: [email or web address]; [email or web address]. Start: 10-18-2023 End: 10-18-2023 Non-patient / Non-visit Dr. Joshua Whitlock Work Phone: [facility] Work Phone: Start: 10-18-2023 End: 10-18-[address] Joshua Whitlock Work Phone: [facility] Work Phone: Start: 10-18-2023 End: 10-18-[address] Joshua Whitlock Work Phone: [facility]-Cat Scan, [facility] Work Phone: Start: 04-02-2023 End: 04-02-2023 Office outpatient visit 15 minutes Joshua Whitlock MD Work Phone: [facility]. Start: 10-14-2022 End: 10-14-2022 Office outpatient visit 15 minutes Joshua Whitlock MD Work Phone: [facility]. Start: 09-15-2022 End: 09-15-2022 Office outpatient visit 15 minutes Joshua Whitlock MD Work Phone: [facility]. Start: 06-30-2022 End: 06-30-2022 Medication Joshua Whitlock MD Work Phone: [facility]. Start: 06-04-2022 End: 06-03-2022 Erroneous Entry Joshua Whitlock MD Work Phone: [facility]. Start: 06-04-2022 End: 06-04-2022 Patient encounter procedure Joshua Whitlock MD Work Phone: [employer].; [employer] Start: 06-04-2022 End: 06-04-2022 Periodic preventive med est patient 40-64yrs Joshua Whitlock MD Work Phone: [facility]. Start: 04-21-2022 End: 04-21-2022 Orders Joshua Whitlock MD Work Phone: [facility]. Start: 04-07-2022 End: 04-07-2022 Office outpatient visit 10 minutes Joshua Whitlock MD Work Phone: [facility]. Start: 04-01-2021 End: 04-01-2021 ambulatory JOSHUA WHITLOCK [facility] Start: 12-25-2020 End: 12-25-2020 Medication Joshua Whitlock MD Work Phone: [facility]. Start: 12-24-2020 End: 12-24-2020 Office outpatient visit 15 minutes Joshua Whitlock MD Work Phone: [facility]. Start: 12-20-2020 End: 12-20-2020 Office outpatient visit 15 minutes Joshua Whitlock MD Work Phone: [facility]. Start: 02-07-2020 End: 02-07-2020 Office outpatient visit 15 minutes Joshua Whitlock MD Work Phone: [facility]. Start: 02-07-2020 End: 02-07-2020 Telephone follow-up Joshua Whitlock MD Work Phone: [facility]. Start: 02-03-2020 End: 02-03-2020 Emergency department patient visit [facility] Start: 01-09-2019 End: 01-09-2019 Orders Joshua Whitlock MD Work Phone: [facility]. Start: 01-06-2019 End: 01-06-2019 Office outpatient visit 15 minutes Joshua Whitlock MD Work Phone: [facility]. Start: 06-07-2018 End: 06-07-2018 Orders Joshua Whitlock MD Work Phone: [facility]. Start: 05-31-2018 End: 05-31-2018 Office outpatient visit 15 minutes Joshua Whitlock MD Work Phone: [facility]. Start: 04-28-2018 End: 04-28-2018 Telephone follow-up Joshua Whitlock MD Work Phone: [facility]. Start: 01-22-2017 End: 01-22-2017 Office outpatient visit 15 minutes Joshua Whitlock MD Work Phone: [facility]. Start: 01-15-2016 End: 01-15-2016 Office outpatient visit 15 minutes Joshua Whitlock MD Work Phone: [facility]. Start: 11-21-2015 End: 11-21-2015 Medication Joshua Whitlock MD Work Phone: [facility]. Start: 11-21-2015 End: 11-21-2015 Office outpatient visit 15 minutes Joshua Whitlock MD Work Phone: [facility]. Start: 09-16-2015 End: 09-16-2015 Office outpatient visit 15 minutes Joshua Whitlock MD Work Phone: [facility]. Start: 09-13-2015 End: 09-13-2015 Office outpatient visit 15 minutes Joshua Whitlock MD Work Phone: [facility]. Start: 08-19-2015 End: 08-19-2015 Medication Joshua Whitlock MD Work Phone: [facility]. Start: 03-15-2015 End: 03-15-2015 Office outpatient visit 15 minutes Joshua Whitlock MD Work Phone: [facility]. Start: 03-15-2015 End: 03-15-2015 Pre-operative examination, unspecified Joshua Whitlock MD Work Phone: [employer].; [facility]. Start: 12-11-2014 End: 12-11-2014 Orders Joshua Whitlock MD Work Phone: [facility]. Start: 12-11-2014 End: 12-11-2014 Office outpatient visit 15 minutes Joshua Whitlock MD Work Phone: [facility]. Start: 02-12-2014 End: 02-12-2014 Medication Joshua Whitlock MD Work Phone: [employer]. Start: 02-12-2014 End: 02-12-2014 Medication Joshua Whitlock MD Work Phone: [facility]. Start: 01-23-2014 End: 01-23-2014 Medication Joshua Whitlock MD Work Phone: [facility]. Start: 10-30-2013 End: 10-30-2013 Medication Joshua Whitlock MD Work Phone: [facility]. Start: 07-26-2013 End: 07-26-2013 Patient encounter procedure Joshua Whitlock MD Work Phone: [employer] Start: 07-26-2013 End: 07-26-2013 Pre-operative examination, unspecified Joshua Whitlock MD Work Phone: [facility].; [facility]. Start: 02-28-2013 End: 02-28-2013 Patient encounter procedure Joshua Whitlock MD Work Phone: [facility]. Start: 12-23-2012 End: 12-23-2012 Medication Joshua Whitlock MD Work Phone: [facility]. Start: 06-27-2012 End: 06-27-2012 Patient encounter procedure Joshua Whitlock MD Work Phone: [facility]. Start: 04-01-2012 End: 04-01-2012 Medication Joshua Whitlock MD Work Phone: [facility]. Start: 12-29-2011 End: 12-29-2011 Medication Joshua Whitlock MD Work Phone: [facility]. Start: 11-26-2011 End: 11-26-2011 Patient encounter procedure Joshua Whitlock MD Work Phone: [facility]. Start: 10-06-2011 End: 10-06-2011 Orders Joshua Whitlock MD Work Phone: [facility]. Start: 09-25-2011 End: 09-25-2011 Patient encounter procedure Joshua Whitlock MD Work Phone: [facility]. Start: 07-01-2011 End: 07-01-2011 Medication Joshua Whitlock MD Work Phone: [facility]. Start: 03-30-2011 End: 03-30-2011 Medication Joshua Whitlock MD Work Phone: [facility]. Start: 01-05-2011 End: 01-05-2011 Medication Joshua Whitlock MD Work Phone: [facility]. Start: 12-29-2010 End: 12-29-2010 Patient encounter procedure Joshua Whitlock MD Work Phone: [facility]. Start: 11-21-2010 End: 11-21-2010 Medication Joshua Whitlock MD Work Phone: [facility]. Start: 11-21-2010 End: 11-21-2010 Historical Summary Joshua Whitlock MD Work Phone: [facility]. Start: 11-03-2010 End: 11-03-2010 Medication Joshua Whitlock MD Work Phone: [facility]. Start: 09-26-2010 End: 09-26-2010 Medication Joshua Whitlock MD Work Phone: [facility]. Start: 09-16-2010 End: 09-16-2010 Laboratory examination ordered as part of a routine general medical examination Naye Valdez Work Phone: [employer]; [facility]. Start: 09-16-2010 End: 09-16-2010 Orders Joshua Whitlock MD Work Phone: [facility]. Start: 09-16-2010 End: 09-16-2010 Medication Joshua Whitlock MD Work Phone: [facility]. Start: 09-15-2010 End: 09-15-2010 Patient encounter procedure Joshua Whitlock MD Work Phone: [employer] Start: 09-15-2010 End: 09-15-2010 Routine gynecological examination Joshua Whitlock MD Work Phone: [facility].; [facility] Start: 07-14-2010 End: 07-14-2010 Medication Joshua Whitlock MD Work Phone: [facility]. Start: 07-11-2010 End: 07-11-2010 Nursing evaluation of patient and report Joshua Whitlock MD Work Phone: [facility]. Admission to [facility] [employer] Patient encounter procedure Grace Garcia MA [facility] Patient encounter procedure Heather Lauren GAMING DIRECTOR [facility]. Patient encounter procedure Flakito Grady GAMING DIRECTOR [facility]. Patient encounter procedure Flakito Miguel A GAMING DIRECTOR [facility]. Patient encounter procedure Flakito Miguel A GAMING DIRECTOR [facility]. Physical examination Flakito Miguel A GAMING DIRECTOR [facility].; [facility] Physical examination Flakito Miguel A GAMING DIRECTOR [facility].; [facility]. Physical examination Flakito Miguel A GAMING DIRECTOR [facility].; [facility]. Physical examination Joshua rhodes MD Work Phone: [facility]; [facility] Routine gynecologica l examination Joshua Whitlock MD Work Phone: [facility]; [facility] Procedures Date Procedure Procedure Detail Performing Clinician Start: 06-13-2025 Computed tomography of abdomen and pelvis with intravenous contrast Dr. Joshua Whitlock MD Work Phone: Start: 06-13-2025 US scan of gallbladder Dr. Joshua Whitlock MD Work Phone: Start: 06-13-2025 Urnls dip stick/tabl et reagent auto microscopy Dr. Joshua Whitlock MD Work Phone: Start: 06-13-[address] Joshua Whitlock MD Work Phone: Start: 05-28-2025 End: 05-28-2025 Depression screening Joshua Whitlock MD Work Phone: Start: 05-28-2025 End: 05-28-2025 Pos clin depres scrn f/u doc Joshua Whitlock MD Work Phone: Start: 05-28-2025 End: 05-28-2025 Scr dep neg, no plan reqd Joshua Whitlock MD Work Phone: Start: 08-11-2024 End: 08-10-2024 Depression screening Joshua Whitlock MD Work Phone: Start: 08-11-2024 End: 08-10-2024 Scr dep neg, no plan reqd Joshua Whitlock MD Work Phone: Start: 07-31-2024 End: 07-31-2024 Lab findings surveillance Flakito Grady LPN Comment on above: CMP 95 Start: 07-31-2024 End: 07-31-2024 Lipid panel Flakito Grady LPN Comment on above: Abnormal. TC 196, HD L 49, TRI 108, LDL 125 Start: 11-04-2023 End: 11-04-2023 Total replacement of right knee joint Joshua Whitlock MD Work Phone: Start: 10-18-2023 MRI of lower extremity Dr. Joshau Whitlock Work Phone: Start: 06-04-2022 End: 06-04-2022 Depression screening Joshua Whitlock MD Work Phone: Start: 06-04-2022 End: 06-04-2022 Microscopic examination of cervical Papanicolaou smear Flakito Grady LPN Start: 06-04-2022 End: 06-04-2022 Pos clin depres scrn f/u doc Joshua Whitlock MD Work Phone: Start: 05-04-2022 End: 05-04-2022 Lab findings surveillance Grace Garcia MA Comment on above: 91 Start: 05-04-2022 End: 05-04-2022 Lipid panel Grace Garcia MA Comment on above: Abnormal. Start: 09-16-2015 End: 09-16-2015 Bx skin subcutaneous&/mucous membrane 1 lesion Joshua Whitlock MD Work Phone: Start: 09-25-2011 End: 10-02-2011 Us pelvic nonobstetric real-time image complete Joshua Whitlock MD Work Phone: Breast cancer screen ing declined Mammogram declined (Renamed from Breast screening declined) Joshua Whitlock MD Work Phone: Breast cancer screen ing declined Mammogram declined (Renamed from Breast screening declined) Flakito Grady LPN Cataract extraction and insertion of intraocular lens Grace Garcia MA Comment on above: 2006 Cataract extraction and insertion of intraocular lens Flakito Grady GAMING DIRECTOR Comment on above: 2006 section Grace marie MA Comment on above: 2006 Dr Marrero , rodo chloe bleeding section Flakito palm GAMING DIRECTOR Comment on above: 2006 Dr Marrero , rodo chloe bleeding plantar fasciitis Grace Zapien od, MA plantar fasciitis Flakito Cantu on GAMING DIRECTOR Total replacement of right knee joint Joshua Whitlock MD Work Phone: Plan of Treatment Date Care Activity Detail Author Start: 06-13-2025 Hospital admission, emergency, from emergency room, medical nature [facility] Start: 06-13-2025 Verification routine [facility] Start: 06-13-2025 Admission procedure [facility] Start: 05-28-2025 Patient encounter procedure [employer] Start: 05-04-2025 Lipid panel LIPID PANEL (02237) Start: 04-May-2025 14:49-04:00 Request [facility].; [facility] Start: 05-04-2025 Comprehensive metabolic panel CMP w/ GFR* (42415) Start: 04-May-2025 14:49-04:00 Request [facility].; [facility] Start: 08-11-2024 Patient encounter procedure [facility] Start: 07-31-2024 Lipid panel LIPID PANEL (51454) Start: 31-Jul-2024 Request [facility].; [facility] Start: 07-31-2024 Comprehensive metabolic panel [facility] Start: 07-31-2024 Nursing evaluation of patient and report Medical; [facility] Start: 31-Jul-2024 08:10-04:00 ROOM, PROCEDURE (DRAW) Appointment Request [employer] Start: 10-25-2023 Patient encounter procedure Medical; EXTENDED RTN - pre-op knee surg 11/10 DEEDEE Saenz 10/18 @ [place] [facility] Start: 25-Oct-2023 8:20 MD Joshua Whitlock Appointment Request [employer] Start: 05-31-2018 End: 05-31-2018 Mri any jt lower extrem w/o contrast matrl Ankle,Left MRI W/O Contrast Date: 31-May-2018 [facility], [facility] Immunizations Immunization Date Immunization Notes Care Provider Jenny rosas 02-03-2020 tetanus toxoid, redu jennifer diphtheria toxoid, and acellular pertussis vaccine, adsorbed Joshua Whitlock MD Work Phone: [facility], Application Security Payers Date Payer Category Payer Private Health Insurance [id number] 2024 Self-pay [id number] 1970 Unknown [id number] 1970 Unknown [id number] Unknown [id number] Unknown [id number] Unknown [employer] Unknown [id number] Unknown [id number] Unknown [id number] Unknown [id number] Social History Date Type Detail Facility End: 06-04-2022 Alcohol Use Alcohol Use [facility], [facility] Exercise History: Exercise Histo ry: ; Light. [facility] [employer] [facility] Tobacco Use: Tobacco Use: ; S mokes < 1 pack of cigarettes per day. [facility], [facility] Start: 1970 Female [facility] Smokes < 1 pack of cigarettes per day [facility] Work Phone: Start: 06-13-2025 Tobacco smoking stat us NDIS Smokes tobacco daily (finding) [facility] Medical Equipment Procedure Code Equipment Code Equipment Origin al Text Equipment Identifier Dates ([id number]) Metal-backed pat twin prosthesis [id number] FDA Start: 09-25-2024 ([id number]) Coated knee femu r prosthesis [id number] FDA Start: 09-25-2024 ([id number]) Coated knee tibi a prosthesis [id number] FDA Start: 09-25-2024 ([id number]) Tibial insert [id number] FDA Start: 09-25-2024 Radiology Diagnostic study note 06-13-2025 Note Date & Type Note Facility 06-13-2025 Radiology Diagnostic study note [facility] Imaging Services [address] [place] [address] [id number] Gallbladder MR#: [id number] Acct: [id number] Name: CORIE LUGO Rep #: [id number] : 1970 F 54 From: Sary Yeager MD PCP: Dr. Joshua Whitlock MD Status: ADM IN Study:Gallbladder Date of Exam: 06/13/25 Exam# [id number] Ordering Dr: Robyn Eckert DO PROCEDURE: GALLBLADDER 06/13/2025 REASON FOR EXAM: ABDOMINAL PAIN, ELEVATED LFTS TECHNIQUE: Procedure Code: USGB Modality: US Procedure: GALLBLADDER FINDINGS: The liver measures 14.5 cm and suggests fatty infiltration. There is moderate intrahepatic biliary dilatation. There is a cyst in the left lobe measuring 18 x 26 x 13 mm. The portal vein is patent. Gallbladder, pancreas and right kidney unremarkable. US/Gallbladder IMPRESSION: Dilated intrahepatic biliary ducts. Normal gallbladder. Reading Location: [id number] CC: Dr. Debi Eckert DO; Dr. Joshua Whitlock MD ~ Asset Administrator: Signed [facility] Radiology Diagnostic study note 06-13-2025 Note Date & Type Note Facility 06-13-2025 Radiology Diagnostic study note [facility] Imaging Services [address] [place] [address] Abdomen/Pelvis W IV Cont ONLY MR#: [id number] Acct: [id number] Name: CORIE LUGO Rep #: [id number] : 1970 F 54 From: Hi Somers MD PCP: Dr. Joshua Whitlock MD Status: REG ER Study:Abdomen/Pelvis W IV Cont ONLY Date of E xam: 06/13/25 Exam# [id number] Ordering Dr: Robyn Eckert DO PROCEDURE: ABDOMEN/PELVIS W IV CONT ONLY 06/13/2025 REASON FOR EXAM: ABDOMINAL PAIN, ELEVATED LFTS, JAUNDICE TECHNIQUE: Procedure Code: CTABDPELIV Modality: CT Procedure: ABDOMEN/PELVIS W IV CONT ONLY Coronal and Sagittal reconstruction series were provided. CONTRAST: Isovue-300 VOLUME: 100 mL One or more dose reduction techniques were used (e.g., Automated exposure control, adjustment of the mA and/or kV according to patient size, use of iterative reconstruction technique. RADIATION DOSE SUMMARY: CTDlvol: 16.65 mGy DLP: 1034.43 mGycm COMPARISON: None FINDINGS: Lung bases: The lung bases are clear. Liver: Central intrahepatic biliary ductal dilatation. 1.4 cm cyst in the medial aspect of the left lobe of the liver. Gallbladder: I suspect small gallstones. The gallbladder is slightly distended. There is dilatation of the common bile duct measuring 14 mm. This is dilated down to the level of the ampulla of Vater. Spleen: Normal size. Pancreas: Findings suggestive of a 13 mm hypodense mass in the head of the pancreas. Correlation with ERCP recommended. Adrenals: Unremarkable Kidneys: Normal renal sizes. No hydronephrosis. Bladder: Bladder is empty. Reproductive Organs: Bilateral tubal ligation clips. Bowel: Unremarkable Appendix: Unremarkable Lymph nodes: Unremarkable. Vasculature: The abdominal aorta and IVC are normal. Peritoneum / Retroperitoneum: Unremarkable Bones: Mild degenerative changes. CT/Abdomen/Pelvis W IV Cont ONLY IMPRESSION: Dilated intrahepatic biliary ducts in the common bile duct down to the head of the pancreas were I suspect a 14 mm mass in the head of the pancreas. Findings suggestive of small gallstones. Reading Location: [id number] CC: Dr. Debi Eckert DO; Dr. Joshua Whitlock MD ~ Asset Administrator: Signed [facility] Clinical Note 09-15-2024 Note Date & Type Note Facility 09-15-2024 Note [facility] Medical Records Department [address] [place] [address] History Physical Exam 09/15/24 1125 MR#: [id number] Acct: [id number] Name: CORIE LUGO Rep #: [id number] : 1970 54 From: Mal DOCKERY PA-C PCP: Dr. Joshua Whitlock MD Status:REG [facility] Location: [place] [id number] History and Physical History and Physical Patient Name: Corie Lugo : 1970From:??? MAL DEL VALLE PA-C DATE OF PRE-OPERATIVE EXAM: 09/15/2024 DATE OF SURGERY:??? 09/25/2024 SCHEDULED PROCEDURE:??? Robotic-assisted left total knee arthroplasty HISTORY OF PRESENT ILLNESS: Preoperative history and physical exam was performed on September 15, 2024.??? This is a 54-year-old female who has had ongoing left knee pain.??? Her pain has been constant, sharp, stabbing, and burning.??? Pain is increased with going up and down stairs and walking.??? Patient does have past history of right total knee arthroplasty by Dr. Azar Ortega on November 10, 2023.??? She is doing well from that procedure.??? Patient's pain at worst can reach 10/10 on the left knee.??? There is been no trauma or injury.??? She has had an MRI which did show meniscus tear and advanced osteoarthritis.??? She has attempted conservative measures including rest, ice, heat, elevation and corticosteroid injection with no relief.??? She has been through previous physical therapy and home exercises without relief.??? She has tried oral medications including meloxicam, diclofenac, Tylenol, and tramadol.??? She denies past history of surgery on the left knee.??? She has used a cane and brace for the left knee.??? Patient states she is currently being treated for a recent sinus infection.??? She is currently on Augmentin.??? She states her symptoms are nearly resolved.??? She is currently afebrile at today's exam.??? Patient did have elevated white blood cell count which the primary care provider documents okay to proceed with surgery and will repeat CBC postoperatively.??? Patient currently denies any chest pain, shortness of breath, or past history of DVT or pulmonary embolism.??? After failing conservative measures and discussing all treatment options, the patient does wish to proceed with a robotic assisted left total knee arthroplasty.??? Patient has obtain surgical clearance from the primary care provider Dr. Joshua Whitlock.??? Patient will be undergoing a trip to [facility] starting tomorrow and she has begun aspirin 81 mg twice daily.??? She will do this leading up to the surgery. REVIEW OF SYSTEMS: ROS: Const: Reports anxiety and weight change, but denies anorexia, change in appetite, fever, difficulty sleeping. CV: Denies chest pain, heart murmur, irregular heartbeat and peripheral vascular disease. Resp: Denies asthma, cough, pneumonia, sleep apnea, shortness of breath, tuberculosis and wheezing. GI: Denies constipation, diarrhea, heartburn, nausea, rectal itching, bloody stools and vomiting. : Reports irregular menstrual periods. Denies incontinence. Musculo: Reports leg swelling, pain and trouble walking, but denies weakness. Skin: Reports tattoo, but denies Raynaud's and history of shingles. Neuro: Denies ambulatory dysfunction, dizziness, numbness/tingling and tremor. Psych: Reports anxiety, depression and stress, but denies insomnia and mental illness. Fredy/Lymph: Denies anemia, bleeding/bruising tendency and past transfusion. Reviewed, no changes. PAST MEDICAL HISTORY: Advance Care Plan: No Advance Directives Effective Date: 06/22/2018 PMH: Medical Problems: Arthritis, migraines, seasonal allergies, anxiety Accidents: None Surgical Hx: Tubal Ligation - (1989) @ [facility] Foot Surgery Ligiment - (2007) KARAN??? @ [facility] Carpal Tunnel Release RT - (1998) @ [facility] LT Ankle Ligement Repair - (09/22/2018) AEM @ [facility] Diagnostic Ablation - (2006) @ [facility] RT Knee, Arthro. Med. Lat. Meniscectomy, Chondroplasty MFC,LTP,PFJ - (06/25/2021) Dr Jesús Ortega @ [facility] RT Knee, Total Joint Replacement - (11/10/2023) MSK @ [facility] Anesthesia Complications: Vomiting - intense Assistive Devices: Glasses Reviewed and updated. 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 Personal Habits:??? Cigarette Use: Light tobacco smoker (10 or fewer cigarettes/day).Smokeless Tobacco: Never Used Smokeless Tobacco.Alcohol: Occasionally.Drug Use: Denies Use.Enjoy Exercising: Exercises 1-3 X/Week. Reviewed, no changes. VITALS: Ht: 64 Wt: 202lb Wt k.627 BMI: 34.7 BP: 128/76 Pulse: 80 Resp: 16 T: 97.7 T: 36.5C Pain Level: 10 O2SatR: 100 ALLERGIES: No Known Drug Allergy MEDICATIONS: Oxycodone HCL 5 mg 1-2 tablet by mouth every 4 hours as needed, Ondansetron HCL 4 mg 1 tablet by mouth every 8 hours as needed for nausea, Famotidine 20 mg 1 tablet by mouth every day, Tramadol HCL 50 mg 1-2 tablet by mo (more content not included)... [facility] Evaluation note Note Date & Type Note Facility Evaluation note No assessment information availa [facility] Work Phone: Reason for referral (narrative) Note Date & Type Note Facility Reason for referral (narrative) No reason for referral information available [facility] Work Phone: Summary Purpose Family History Breast Cancer Status:Active Comments:Paterna l Aunt. Cerebrovascular Accident Status:Active Comment s:Negative Family History Of. Coronary Artery Disease Status:Active Comments :Father. Paternal Grandmother. Diabetes Mellitus Type II Status:Active Commen ts:Negative Family History Of. Hypertension Status:Active Comments:Negativ e Family History Of. Hypothyroidism Status:Active Comments:Mother. Prostate Cancer Status:Active Comments:Father. Breast Cancer Status:Active Comments:Paterna l Aunt. Cerebrovascular Accident Status:Active Comment s:Negative Family History Of. Coronary Artery Disease Status:Active Comments :Father. Paternal Grandmother. Diabetes Mellitus Type II Status:Active Commen ts:Negative Family History Of. Hypertension Status:Active Comments:Negativ e Family History Of. Hypothyroidism Status:Active Comments:Mother. Prostate Cancer Status:Active Comments:Father. Breast Cancer Status:Active Comments:Paterna l Aunt. Cerebrovascular Accident Status:Active Comment s:Negative Family History Of. Coronary Artery Disease Status:Active Comments :Father. Paternal Grandmother. Diabetes Mellitus Type II Status:Active Commen ts:Negative Family History Of. Hypertension Status:Active Comments:Negativ e Family History Of. Hypothyroidism Status:Active Comments:Mother. Prostate Cancer Status:Active Comments:Father. Breast Cancer Status:Active Comments:Paterna l Aunt. Cerebrovascular Accident Status:Active Comment s:Negative Family History Of. Coronary Artery Disease Status:Active Comments :Father. Paternal Grandmother. Diabetes Mellitus Type II Status:Active Commen ts:Negative Family History Of. Hypertension Status:Active Comments:Negativ e Family History Of. Hypothyroidism Status:Active Comments:Mother. Prostate Cancer Status:Active Comments:Father. Breast Cancer Status:Active Comments:Paterna l Aunt. Cerebrovascular Accident Status:Active Comment s:Negative Family History Of. Coronary Artery Disease Status:Active Comments :Father. Paternal Grandmother. Diabetes Mellitus Type II Status:Active Commen ts:Negative Family History Of. Hypertension Status:Active Comments:Negativ e Family History Of. Hypothyroidism Status:Active Comments:Mother. Prostate Cancer Status:Active Comments:Father. Breast Cancer Status:Active Comments:Paterna l Aunt. Cerebrovascular Accident Status:Active Comment s:Negative Family History Of. Coronary Artery Disease Status:Active Comments :Father. Paternal Grandmother. Diabetes Mellitus Type II Status:Active Commen ts:Negative Family History Of. Hypertension Status:Active Comments:Negativ e Family History Of. Hypothyroidism Status:Active Comments:Mother. Prostate Cancer Status:Active Comments:Father. Breast Cancer Status:Active Comments:Paterna l Aunt. Cerebrovascular Accident Status:Active Comment s:Negative Family History Of. Coronary Artery Disease Status:Active Comments :Father. Paternal Grandmother. Diabetes Mellitus Type II Status:Active Commen ts:Negative Family History Of. Hypertension Status:Active Comments:Negativ e Family History Of. Hypothyroidism Status:Active Comments:Mother. Prostate Cancer Status:Active Comments:Father. Breast Cancer Status:Active Comments:Paterna l Aunt. Cerebrovascular Accident Status:Active Comment s:Negative Family History Of. Coronary Artery Disease Status:Active Comments :Father. Paternal Grandmother. Diabetes Mellitus Type II Status:Active Commen ts:Negative Family History Of. Hypertension Status:Active Comments:Negativ e Family History Of. Hypothyroidism Status:Active Comments:Mother. Prostate Cancer Status:Active Comments:Father. Breast Cancer Status:Active Comments:Paterna l Aunt. Cerebrovascular Accident Status:Active Comment s:Negative Family History Of. Coronary Artery Disease Status:Active Comments :Father. Paternal Grandmother. Diabetes Mellitus Type II Status:Active Commen ts:Negative Family History Of. Hypertension Status:Active Comments:Negativ e Family History Of. Hypothyroidism Status:Active Comments:Mother. Prostate Cancer Status:Active Comments:Father. Breast Cancer Status:Active Comments:Paterna l Aunt. Cerebrovascular Accident Status:Active Comment s:Negative Family History Of. Coronary Artery Disease Status:Active Comments :Father. Paternal Grandmother. Diabetes Mellitus Type II Status:Active Commen ts:Negative Family History Of. Hypertension Status:Active Comments:Negativ e Family History Of. Hypothyroidism Status:Active Comments:Mother. Prostate Cancer Status:Active Comments:Father. Breast Cancer Status:Active Comments:Paterna l Aunt. Cerebrovascular Accident Status:Active Comment s:Negative Family History Of. Coronary Artery Disease Status:Active Comments :Father. Paternal Grandmother. Diabetes Mellitus Type II Status:Active Commen ts:Negative Family History Of. Hypertension Status:Active Comments:Negativ e Family History Of. Hypothyroidism Status:Active Comments:Mother. Prostate Cancer Status:Active Comments:Father. Breast Cancer Status:Active Comments:Paterna l Aunt. Cerebrovascular Accident Status:Active Comment s:Negative Family History Of. Coronary Artery Disease Status:Active Comments :Father. Paternal Grandmother. Diabetes Mellitus Type II Status:Active Commen ts:Negative Family History Of. Hypertension Status:Active Comments:Negativ e Family History Of. Hypothyroidism Status:Active Comments:Mother. Prostate Cancer Status:Active Comments:Father. Breast Cancer Status:Active Comments:Paterna l Aunt. Cerebrovascular Accident Status:Active Comment s:Negative Family History Of. Coronary Artery Disease Status:Active Comments :Father. Paternal Grandmother. Diabetes Mellitus Type II Status:Active Commen ts:Negative Family History Of. Hypertension Status:Active Comments:Negativ e Family History Of. Hypothyroidism Status:Active Comments:Mother. Prostate Cancer Status:Active Comments:Father. Breast Cancer Status:Active Comments:Paterna l Aunt. Cerebrovascular Accident Status:Active Comment s:Negative Family History Of. Coronary Artery Disease Status:Active Comments :Father. Paternal Grandmother. Diabetes Mellitus Type II Status:Active Commen ts:Negative Family History Of. Hypertension Status:Active Comments:Negativ e Family History Of. Hypothyroidism Status:Active Comments:Mother. Prostate Cancer Status:Active Comments:Father. Breast Cancer Status:Active Comments:Paterna l Aunt. Cerebrovascular Accident Status:Active Comment s:Negative Family History Of. Coronary Artery Disease Status:Active Comments :Father. Paternal Grandmother. Diabetes Mellitus Type II Status:Active Commen ts:Negative Family History Of. Hypertension Status:Active Comments:Negativ e Family History Of. Hypothyroidism Status:Active Comments:Mother. Prostate Cancer Status:Active Comments:Father. Breast Cancer Status:Active Comments:Paterna l Aunt. Cerebrovascular Accident Status:Active Comment s:Negative Family History Of. Coronary Artery Disease Status:Active Comments :Father. Paternal Grandmother. Diabetes Mellitus Type II Status:Active Commen ts:Negative Family History Of. Hypertension Status:Active Comments:Negativ e Family History Of. Hypothyroidism Status:Active Comments:Mother. Prostate Cancer Status:Active Comments:Father. Breast Cancer Status:Active Comments:Paterna l Aunt. Cerebrovascular Accident Status:Active Comment s:Negative Family History Of. Coronary Artery Disease Status:Active Comments :Father. Paternal Grandmother. Diabetes Mellitus Type II Status:Active Commen ts:Negative Family History Of. Hypertension Status:Active Comments:Negativ e Family History Of. Hypothyroidism Status:Active Comments:Mother. Prostate Cancer Status:Active Comments:Father. Breast Cancer Status:Active Comments:Paterna l Aunt. Cerebrovascular Accident Status:Active Comment s:Negative Family History Of. Coronary Artery Disease Status:Active Comments :Father. Paternal Grandmother. Diabetes Mellitus Type II Status:Active Commen ts:Negative Family History Of. Hypertension Status:Active Comments:Negativ e Family History Of. Hypothyroidism Status:Active Comments:Mother. Prostate Cancer Status:Active Comments:Father. Breast Cancer Status:Active Comments:Paterna l Aunt. Cerebrovascular Accident Status:Active Comment s:Negative Family History Of. Coronary Artery Disease Status:Active Comments :Father. Paternal Grandmother. Diabetes Mellitus Type II Status:Active Commen ts:Negative Family History Of. Hypertension Status:Active Comments:Negativ e Family History Of. Hypothyroidism Status:Active Comments:Mother. Prostate Cancer Status:Active Comments:Father. Breast Cancer Status:Active Comments:Paterna l Aunt. Cerebrovascular Accident Status:Active Comment s:Negative Family History Of. Coronary Artery Disease Status:Active Comments :Father. Paternal Grandmother. Diabetes Mellitus Type II Status:Active Commen ts:Negative Family History Of. Hypertension Status:Active Comments:Negativ e Family History Of. Hypothyroidism Status:Active Comments:Mother. Prostate Cancer Status:Active Comments:Father. Breast Cancer Status:Active Comments:Paterna l Aunt. Cerebrovascular Accident Status:Active Comment s:Negative Family History Of. Coronary Artery Disease Status:Active Comments :Father. Paternal Grandmother. Diabetes Mellitus Type II Status:Active Commen ts:Negative Family History Of. Hypertension Status:Active Comments:Negativ e Family History Of. Hypothyroidism Status:Active Comments:Mother. Prostate Cancer Status:Active Comments:Father. Breast Cancer Status:Active Comments:Paterna l Aunt. Cerebrovascular Accident Status:Active Comment s:Negative Family History Of. Coronary Artery Disease Status:Active Comments :Father. Paternal Grandmother. Diabetes Mellitus Type II Status:Active Commen ts:Negative Family History Of. Hypertension Status:Active Comments:Negativ e Family History Of. Hypothyroidism Status:Active Comments:Mother. Prostate Cancer Status:Active Comments:Father. Breast Cancer Status:Active Comments:Paterna l Aunt. Cerebrovascular Accident Status:Active Comment s:Negative Family History Of. Coronary Artery Disease Status:Active Comments :Father. Paternal Grandmother. Diabetes Mellitus Type II Status:Active Commen ts:Negative Family History Of. Hypertension Status:Active Comments:Negativ e Family History Of. Hypothyroidism Status:Active Comments:Mother. Prostate Cancer Status:Active Comments:Father. Breast Cancer Status:Active Comments:Paterna l Aunt. Cerebrovascular Accident Status:Active Comment s:Negative Family History Of. Coronary Artery Disease Status:Active Comments :Father. Paternal Grandmother. Diabetes Mellitus Type II Status:Active Commen ts:Negative Family History Of. Hypertension Status:Active Comments:Negativ e Family History Of. Hypothyroidism Status:Active Comments:Mother. Prostate Cancer Status:Active Comments:Father. Breast Cancer Status:Active Comments:Paterna l Aunt. Cerebrovascular Accident Status:Active Comment s:Negative Family History Of. Coronary Artery Disease Status:Active Comments :Father. Paternal Grandmother. Diabetes Mellitus Type II Status:Active Commen ts:Negative Family History Of. Hypertension Status:Active Comments:Negativ e Family History Of. Hypothyroidism Status:Active Comments:Mother. Prostate Cancer Status:Active Comments:Father. Breast Cancer Status:Active Comments:Paterna l Aunt. Cerebrovascular Accident Status:Active Comment s:Negative Family History Of. Coronary Artery Disease Status:Active Comments :Father. Paternal Grandmother. Diabetes Mellitus Type II Status:Active Commen ts:Negative Family History Of. Hypertension Status:Active Comments:Negativ e Family History Of. Hypothyroidism Status:Active Comments:Mother. Prostate Cancer Status:Active Comments:Father. Breast Cancer Status:Active Comments:Paterna l Aunt. Cerebrovascular Accident Status:Active Comment s:Negative Family History Of. Coronary Artery Disease Status:Active Comments :Father. Paternal Grandmother. Diabetes Mellitus Type II Status:Active Commen ts:Negative Family History Of. Hypertension Status:Active Comments:Negativ e Family History Of. Hypothyroidism Status:Active Comments:Mother. Prostate Cancer Status:Active Comments:Father. Breast Cancer Status:Active Comments:Paterna l Aunt. Cerebrovascular Accident Status:Active Comment s:Negative Family History Of. Coronary Artery Disease Status:Active Comments :Father. Paternal Grandmother. Diabetes Mellitus Type II Status:Active Commen ts:Negative Family History Of. Hypertension Status:Active Comments:Negativ e Family History Of. Hypothyroidism Status:Active Comments:Mother. Prostate Cancer Status:Active Comments:Father. Breast Cancer Status:Active Comments:Paterna l Aunt. Cerebrovascular Accident Status:Active Comment s:Negative Family History Of. Coronary Artery Disease Status:Active Comments :Father. Paternal Grandmother. Diabetes Mellitus Type II Status:Active Commen ts:Negative Family History Of. Hypertension Status:Active Comments:Negativ e Family History Of. Hypothyroidism Status:Active Comments:Mother. Prostate Cancer Status:Active Comments:Father. Breast Cancer Status:Active Comments:Paterna l Aunt. Cerebrovascular Accident Status:Active Comment s:Negative Family History Of. Coronary Artery Disease Status:Active Comments :Father. Paternal Grandmother. Diabetes Mellitus Type II Status:Active Commen ts:Negative Family History Of. Hypertension Status:Active Comments:Negativ e Family History Of. Hypothyroidism Status:Active Comments:Mother. Prostate Cancer Status:Active Comments:Father. Breast Cancer Status:Active Comments:Paterna l Aunt. Cerebrovascular Accident Status:Active Comment s:Negative Family History Of. Coronary Artery Disease Status:Active Comments :Father. Paternal Grandmother. Diabetes Mellitus Type II Status:Active Commen ts:Negative Family History Of. Hypertension Status:Active Comments:Negativ e Family History Of. Hypothyroidism Status:Active Comments:Mother. Prostate Cancer Status:Active Comments:Father. Breast Cancer Status:Active Comments:Paterna l Aunt. Cerebrovascular Accident Status:Active Comment s:Negative Family History Of. Coronary Artery Disease Status:Active Comments :Father. Paternal Grandmother. Diabetes Mellitus Type II Status:Active Commen ts:Negative Family History Of. Hypertension Status:Active Comments:Negativ e Family History Of. Hypothyroidism Status:Active Comments:Mother. Prostate Cancer Status:Active Comments:Father. Breast Cancer Status:Active Comments:Paterna l Aunt. Cerebrovascular Accident Status:Active Comment s:Negative Family History Of. Coronary Artery Disease Status:Active Comments :Father. Paternal Grandmother. Diabetes Mellitus Type II Status:Active Commen ts:Negative Family History Of. Hypertension Status:Active Comments:Negativ e Family History Of. Hypothyroidism Status:Active Comments:Mother. Prostate Cancer Status:Active Comments:Father. Breast Cancer Status:Active Comments:Paterna l Aunt. Cerebrovascular Accident Status:Active Comment s:Negative Family History Of. Coronary Artery Disease Status:Active Comments :Father. Paternal Grandmother. Diabetes Mellitus Type II Status:Active Commen ts:Negative Family History Of. Hypertension Status:Active Comments:Negativ e Family History Of. Hypothyroidism Status:Active Comments:Mother. Prostate Cancer Status:Active Comments:Father. Breast Cancer Status:Active Comments:Paterna l Aunt. Cerebrovascular Accident Status:Active Comment s:Negative Family History Of. Coronary Artery Disease Status:Active Comments :Father. Paternal Grandmother. Diabetes Mellitus Type II Status:Active Commen ts:Negative Family History Of. Hypertension Status:Active Comments:Negativ e Family History Of. Hypothyroidism Status:Active Comments:Mother. Prostate Cancer Status:Active Comments:Father. Breast Cancer Status:Active Comments:Paterna l Aunt. Cerebrovascular Accident Status:Active Comment s:Negative Family History Of. Coronary Artery Disease Status:Active Comments :Father. Paternal Grandmother. Diabetes Mellitus Type II Status:Active Commen ts:Negative Family History Of. Hypertension Status:Active Comments:Negativ e Family History Of. Hypothyroidism Status:Active Comments:Mother. Prostate Cancer Status:Active Comments:Father. Breast Cancer Status:Active Comments:Paterna l Aunt. Cerebrovascular Accident Status:Active Comment s:Negative Family History Of. Coronary Artery Disease Status:Active Comments :Father. Paternal Grandmother. Diabetes Mellitus Type II Status:Active Commen ts:Negative Family History Of. Hypertension Status:Active Comments:Negativ e Family History Of. Hypothyroidism Status:Active Comments:Mother. Prostate Cancer Status:Active Comments:Father. Breast Cancer Status:Active Comments:Paterna l Aunt. Cerebrovascular Accident Status:Active Comment s:Negative Family History Of. Coronary Artery Disease Status:Active Comments :Father. Paternal Grandmother. Diabetes Mellitus Type II Status:Active Commen ts:Negative Family History Of. Hypertension Status:Active Comments:Negativ e Family History Of. Hypothyroidism Status:Active Comments:Mother. Prostate Cancer Status:Active Comments:Father. Breast Cancer Status:Active Comments:Paterna l Aunt. Cerebrovascular Accident Status:Active Comment s:Negative Family History Of. Coronary Artery Disease Status:Active Comments :Father. Paternal Grandmother. Diabetes Mellitus Type II Status:Active Commen ts:Negative Family History Of. Hypertension Status:Active Comments:Negativ e Family History Of. Hypothyroidism Status:Active Comments:Mother. Prostate Cancer Status:Active Comments:Father. Breast Cancer Status:Active Comments:Paterna l Aunt. Cerebrovascular Accident Status:Active Comment s:Negative Family History Of. Coronary Artery Disease Status:Active Comments :Father. Paternal Grandmother. Diabetes Mellitus Type II Status:Active Commen ts:Negative Family History Of. Hypertension Status:Active Comments:Negativ e Family History Of. Hypothyroidism Status:Active Comments:Mother. Prostate Cancer Status:Active Comments:Father. Breast Cancer Status:Active Comments:Paterna l Aunt. Cerebrovascular Accident Status:Active Comment s:Negative Family History Of. Coronary Artery Disease Status:Active Comments :Father. Paternal Grandmother. Diabetes Mellitus Type II Status:Active Commen ts:Negative Family History Of. Hypertension Status:Active Comments:Negativ e Family History Of. Hypothyroidism Status:Active Comments:Mother. Prostate Cancer Status:Active Comments:Father. Breast Cancer Status:Active Comments:Paterna l Aunt. Cerebrovascular Accident Status:Active Comment s:Negative Family History Of. Coronary Artery Disease Status:Active Comments :Father. Paternal Grandmother. Diabetes Mellitus Type II Status:Active Commen ts:Negative Family History Of. Hypertension Status:Active Comments:Negativ e Family History Of. Hypothyroidism Status:Active Comments:Mother. Prostate Cancer Status:Active Comments:Father. Breast Cancer Status:Active Comments:Paterna l Aunt. Cerebrovascular Accident Status:Active Comment s:Negative Family History Of. Coronary Artery Disease Status:Active Comments :Father. Paternal Grandmother. Diabetes Mellitus Type II Status:Active Commen ts:Negative Family History Of. Hypertension Status:Active Comments:Negativ e Family History Of. Hypothyroidism Status:Active Comments:Mother. Prostate Cancer Status:Active Comments:Father. Breast Cancer Status:Active Comments:Paterna l Aunt. Cerebrovascular Accident Status:Active Comment s:Negative Family History Of. Coronary Artery Disease Status:Active Comments :Father. Paternal Grandmother. Diabetes Mellitus Type II Status:Active Commen ts:Negative Family History Of. Hypertension Status:Active Comments:Negativ e Family History Of. Hypothyroidism Status:Active Comments:Mother. Prostate Cancer Status:Active Comments:Father. Breast Cancer Status:Active Comments:Paterna l Aunt. Cerebrovascular Accident Status:Active Comment s:Negative Family History Of. Coronary Artery Disease Status:Active Comments :Father. Paternal Grandmother. Diabetes Mellitus Type II Status:Active Commen ts:Negative Family History Of. Hypertension Status:Active Comments:Negativ e Family History Of. Hypothyroidism Status:Active Comments:Mother. Prostate Cancer Status:Active Comments:Father. Breast Cancer Status:Active Comments:Paterna l Aunt. Cerebrovascular Accident Status:Active Comment s:Negative Family History Of. Coronary Artery Disease Status:Active Comments :Father. Paternal Grandmother. Diabetes Mellitus Type II Status:Active Commen ts:Negative Family History Of. Hypertension Status:Active Comments:Negativ e Family History Of. Hypothyroidism Status:Active Comments:Mother. Prostate Cancer Status:Active Comments:Father. Breast Cancer Status:Active Comments:Paterna l Aunt. Cerebrovascular Accident Status:Active Comment s:Negative Family History Of. Coronary Artery Disease Status:Active Comments :Father. Paternal Grandmother. Diabetes Mellitus Type II Status:Active Commen ts:Negative Family History Of. Hypertension Status:Active Comments:Negativ e Family History Of. Hypothyroidism Status:Active Comments:Mother. Prostate Cancer Status:Active Comments:Father. Breast Cancer Status:Active Comments:Paterna l Aunt. Cerebrovascular Accident Status:Active Comment s:Negative Family History Of. Coronary Artery Disease Status:Active Comments :Father. Paternal Grandmother. Diabetes Mellitus Type II Status:Active Commen ts:Negative Family History Of. Hypertension Status:Active Comments:Negativ e Family History Of. Hypothyroidism Status:Active Comments:Mother. Prostate Cancer Status:Active Comments:Father. Advance Directives Advance Directive Response Recorded Date/ Time Do you have a Healthcare Power of Commercial Correspondent? No June 13, 2025 3:39pm Chief Complaint and Reason for Visit Chief Complaint OSTEOARTHRITIS RIGHT KNEE *CARYN PROTOCOL* PREOP Chief Complaint OSTEOARTHRITIS RIGHT KNEE *CARYN PROTOCOL* PREOP PRIMARY OATEOARTHRITIS, RIGHT KNEE Chief Complaint Admit Date PAINLESS JAUNDICE W/ PANCREATIC HEAD MAS S June 13, 2025 4:58pm Additional Source Comments INFORMATION SOURCE (unrecogn ized section and content) DATE CREATED AUTHOR 02/18/2020 [facility] DATE CREATED AUTHOR AUTHOR'S ORGANIZ ATION 04/02/2021 [facility] DATE CREATED AUTHOR AUTHOR'S ORGANIZ ATION 08/02/2024 [facility] DATE CREATED AUTHOR AUTHOR'S ORGANIZ ATION 06/12/2025 [facility] Care Teams (unrecognized sec tion and content) Team Status: Active Member Role Status Dates Dr. Joshua Whitlock MD Family Provider Active Dr. Joshua Whitlock MD Primary Care Provider Active Team Status: Active Member Role Status Dates Dr. Joshua Whitlock MD Primary Care Provider Active Dr. Nelson Pacheco MD Attending Provider Active Dr. Azar Ortega DO Referring Provider Active Team Status: Inactive Member Role Status Dates Dr. Joshua Whitlock MD Primary Care Provider Active Dr. Azar Ortega DO Attending Provider, Referring Provider Active Matheus DOCKERY PAMariC Other Provider Active Team Status: Inactive Member Role Status Dates Dr. Joshua Whitlock MD Primary Care Provider Active Dr. Azar Ortega , DO Attending Provider, Referring Provider Active Team Status: Active Member Role/Relationship Status Dates Dr. Joshua Whitlock MD Primary Care Provider Active Team Status: Active Member Role/Relationship Status Dates Dr. Joshua Whitlock MD Primary Care Provider Active Start: June 13, 2025 Dr. Debi Eckert DO Emergency Provider Active S tart: June 13, 2025 Dr. Maynor Blanton DO Admit Provider Active Start: June 13, 2025 Dr. Maynor Blanton DO Attending Provider Active Start: June 13, 2025 Goals (unrecognized section and content) Goals may be documented in a n alternate sectionGoals may be documented in an alternate sectionGoals may be documented in an alternate section FOR RECORDS PERTAINING TO PATIENTS WHO ARE [...] BE BASED ON THE PRIMARY CLINICAL RECORDS. [employer] provides no warranty or guarantee of the accuracy or completeness of information in this document.
[2025-06-14] VITALS (17 sets, daily range): BP systolic 107–137; BP diastolic 52–79; PULSE 60–78; RESP 16–18; TEMP 36.2–36.8; O2SAT 93–99
[2025-06-14 05:08] LABS: Hematocrit 37.2 % (37-47); Hemoglobin 12.8 g/dL (12.0-15.0); Mean Corp Hgb Conc 34.4 g/dL (32-36); Mean Corpuscular Volume 82.9 fL (81-99); Mean Platelet Vol. 11.6 fl (6.2-12.0); Platelet Count 285 K/mm3 (150-450); RBC Distribution Width CV 15.8 % (11.6-14.6); RBC Distribution Width SD 46.5 fl (35.1-43.9); Red Blood Count 4.49 M/mm3 (4.2-5.4); White Blood Count 7.9 K/mm3 (4.4-11.0)
--- NOTE | 2025-06-14 05:55 | EKG12_ITS ---
Test Reason : P Blood Pressure : */* mmHG Vent. Rate : 56 BPM Atrial Rate : 56 BPM P-R Int : 132 ms QRS Dur : 80 ms QT Int : 424 ms P-R-T Axes : 34 13 24 degrees QTcB Int : 409 ms Sinus bradycardia Otherwise normal ECG Confirmed by Azar Perez ([id number]), content editor ROSA WINTER ([id number]) on 06/19/2025 12:00:40 PM Referred By: Confirmed By: Azar Perez
[2025-06-14 06:13] LABS: AST(SGOT) 481 U/L (<=31); Alanine Aminotransfer ALT/SGPT 950 U/L (<=34); Albumin, Serum 3.7 g/dL (3.5-5.0); Alkaline Phosphatase 820 U/L (35-104); Anion Gap 12 (5-15); BUN 17 mg/dL (4-19); BUN/Creat Ratio 19.1 RATIO (10-20); Calcium,Total 9.5 mg/dL (7.6-11.0); Carbon Dioxide 22.9 mmol/L (21.0-32.0); Chloride 104 mmol/L (98-108); Estimated Creatinine Clearance 69.75 ml/min (50-250); Globulin 2.7 g/dL (2.2-4.2); Glucose 114 mg/dL (70-99); Potassium 4.0 mmol/L (3.3-5.1)
--- NOTE | 2025-06-14 07:32 | RAD_ITS ---
EXAM: ERCP INTRAOPERATIVE FLUOROSCOPY CLINICAL HISTORY: Pancreatic mass, jaundice COMPARISON: Abdominal CT 06/13/2025. TECHNIQUE: 12 intraoperative fluoroscopic images are submitted for review. FINDINGS: ERCP demonstrates moderate intra and extrahepatic biliary ductal dilatation, as seen on prior CT. No filling defects to suggest choledocholithiasis appreciated. Total fluoroscopy time 118.8 seconds. Total radiation dose 26.04 mGy. RAD/ERCP Biliary/Pancreas IMPRESSION: ERCP as above, demonstrating intra and extrahepatic biliary ductal dilatation, as noted on prior CT with suspected pancreatic head mass lesion. Reading Location: [facility]
--- NOTE | 2025-06-14 08:47 | PCM.PN.HOSP ---
Reason for Visit Chief Complaint: Abdominal pain with jaundice Subjective Subjective Patient complaining of ongoing pain. Not quite as controlled as she would like it to be. We discussed some uptitration of the IV medications as it seems to be effective for short period of time. ERCP is pending and then we discussed that ongoing recommendations can be made following that. Objective Data Objective Data Vital Signs: Vital Signs Temp Pulse Resp BP Pulse Ox O2 Del Method 97.1 F L 62 18 108/64 97 Room Air 06/14/25 07:33 06/14/25 07:33 06/14/25 07:33 06/14/25 07:33 06/14/25 07:33 06/14/25 07:33 Oxygen Delivery Method Room Air Weight: 84.867 kg Body Mass Index (BMI) 34.2 Lab / Micro Data 06/14/25 04:10 06/14/25 04:10 Labs: Laboratory Results - last 24 hr 06/13/25 13:42: WBC 9.4, RBC 4.82, Hgb 13.6, Hct 40.6, MCV 84.2, MCH 28.2, MCHC 33.5, RDW Std Deviation 49.0 H, RDW Coeff of [place] 16.0 H, Plt Count 352, MPV 12.1 H, Immature Gran % (Auto) 0.300, Neut % (Auto) 60.7, Lymph % (Auto) 27.7, Green % (Auto) 8.7, Eos % (Auto) 1.8, Baso % (Auto) 0.8, Absolute Neuts (auto) 5.7, Absolute Lymphs (auto) 2.61, Nucleated RBC % 0, Sodium 139, Potassium 4.2, Chloride 104, Carbon Dioxide 20.7 L, Anion Gap 14, BUN 20 H, Creatinine 1.01, Estim Creat Clear Calc 62.84, Est GFR (MDRD) Non-Af 65, BUN/Creatinine Ratio 19.8, Glucose 99, Calcium 10.0, Total Bilirubin 5.65 H, AST 507 H, ALT 1069 H, Alkaline Phosphatase 886 H, Total Protein 7.3, Albumin 4.0, Globulin 3.3, Albumin/Globulin Ratio 1.2, Lipase 12 L 06/13/25 13:54: Urine Color [place], Urine Clarity Clear, Urine pH 5.0, Ur Specific [place] 1.020, Urine Protein 100 H, Urine Glucose (UA) Normal, Urine Ketones 15 H, Urine Occult Blood 25 H, Urine Nitrite Negative, Urine Bilirubin 6 H, Urine Urobilinogen 4 H, Ur Leukocyte Esterase 500 H, Urine RBC 0-5 SEEN, Urine WBC 10-25 SEEN, Ur Squamous Epith Cells 5-10 SEEN, Amorphous Sediment 3+ URATE, Urine Bacteria 0 SEEN, Urine Mucus 0 SEEN 06/14/25 04:10: WBC 7.9, RBC 4.49, Hgb 12.8, Hct 37.2, MCV 82.9, MCH 28.5, MCHC 34.4, RDW Std Deviation 46.5 H, RDW Coeff of [place] 15.8 H, Plt Count 285, MPV 11.6, Sodium 140, Potassium 4.0, Chloride 104, Carbon Dioxide 22.9, Anion Gap 12, BUN 17, Creatinine 0.91, Estim Creat Clear Calc 69.75, Est GFR (MDRD) Non-Af 74, BUN/Creatinine Ratio 19.1, Glucose 114 H, Calcium 9.5, Total Bilirubin 5.50 H, AST 481 H, ALT 950 H, Alkaline Phosphatase 820 H, Total Protein 6.4, Albumin 3.7, Globulin 2.7, Albumin/Globulin Ratio 1.4 Radiography Diagnostic Testing: Radiology Impression Gallbladder Ultrasound 06/13/25 15:19 IMPRESSION: Dilated intrahepatic biliary ducts. Normal gallbladder. Reading Location: [facility] Abdomen/Pelvis CT 06/13/25 15:40 IMPRESSION: Dilated intrahepatic biliary ducts in the common bile duct down to the head of the pancreas were I suspect a 14 mm mass in the head of the pancreas. Findings suggestive of small gallstones. Reading Location: [facility] Physical Exam Const alert, oriented x3, no apparent distress and well nourished; Negative for average body habitus Constitutional Narrative: Middle-age white female, sitting up in bed, at bedside, currently appears comfortable, nontoxic appearing HEENT head/scalp atraumatic and moist oral mucous membranes HEENT Narrative: Mallampati 2-3, no thrush Head and Scalp: normocephalic Eyes conjunctivae normal Eyes Narrative: Scleral icterus is present Neck supple Neck Narrative: Trachea midline Resp normal respiratory effort, no retractions, no use of accessory muscles and clear to auscultation bilaterally Resp Narrative: Diminished but clear Auscultation: Negative for rales, rhonchi or wheezes Cardio regular rate, regular rhythm, S1 normal heart sound, S2 normal heart sound, no murmurs, no rub, no gallops and no clicks GI normal to inspection, nondistended, normoactive bowel sounds and soft to palpation; Negative for non-tender GI Narrative: Tenderness in the epigastrium extending to the left upper quadrant Extremity no clubbing, cyanosis or edema Extremity Narrative: Pedal pulses are 2+, radial pulses are 2+ Skin Skin Narrative: Jaundice Neuro moves all extremities and no focal motor deficits Speech: speech normal Psych Psych Narrative: Affect is slightly flat but patient makes good eye contact and interacts appropriately Assessment & Plan Assessment/Plan (1) Mass of head of pancreas: (2) Biliary obstruction: (3) Abdominal pain: (4) Jaundice: (5) Transaminitis: (6) Hyperbilirubinemia: PLAN: Plan Abdominal pain with pancreatic head mass, biliary ductal dilation and elevated transaminases - Concern for pancreatic cancer - Check Ca 19-9 - ERCP today - Continue IV pain meds with uptitration - Repeat CMP in am - NPO - Start IVF - GI Consult pending GERD - PPI - carafate Seasonal Allergies -cont Loratidine Obesity - BMI 34.2 Tobacco Dependence - current nicotine abuse - continue nicotine patch - cessation advised DVT prophylaxis - Lovenox Code Status - Full
[2025-06-14] MEDS: Lactated Ringers 1,000 ML 100 ML IV ×2 (11:22→23:34)
--- NOTE | 2025-06-14 11:51 | CASEMGMT ---
Dx:abdominal pain with jaundice and pancreatic head mass LACE:1 6-Clicks:24 Medical record reviewed and patient evaluated for identification of discharge planning needs. Based on this review, at this time criteria are not present to indicate a need for discharge planning. Will remain available to assist with discharge planning needs as identified or requested. SW to see pt for coping coping with new dx.
--- NOTE | 2025-06-14 13:28 | CASEMGMT ---
Social Work SW met w/pt and , offered support. Pt states just waiting for her scope and to find out more information. SW will remain available for support to pt if needed. BRIGITTE Rodriguez
--- NOTE | 2025-06-14 15:47 | PRE.ANES_ITS ---
ASA Classification* ASA Classification ASA Classification: 2 Assessment & Plan Anesthesia* Anesthesia Assessment Anesthesia Assessment: Discussed sedation and/or anesthesia options, risks, benefits, and alternatives with patient/parents/legal guardian/POA. Questions invited. The patient/parents/legal guardian/POA seems to understand and agrees to proceed with anesthesia plan. Reviewed the physical assessment, medical history, allergy history and patient home medications list prior to surgery/procedure/anesthetic and documented any changes. Performed airway and anesthesia risk assessments. Anesthesia Type Anesthesia Type: General History Source History Obtained from:: Patient and Chart Anesthesia Focused Assessment* Temperature: 97.3 F Pulse Rate: 60 Blood Pressure: 107/56 Respiratory Rate: 18 Pulse Ox: 95 Oxygen Delivery Method: Room Air Airway Assessment Mouth opens: >3 cm Mallampati Score: III Teeth Condition: Intact Neck Range of motion (ROM): Full ROM Labs Anesthesia Preop lab: CBC WBC 7.9 K/mm3 (4.4-11.0) 06/14/25 04:10 06/14/25 RBC 4.49 M/mm3 (4.2-5.4) 06/14/25 04:10 06/14/25 Hgb 12.8 g/dL (12.0-15.0) 06/14/25 04:10 06/14/25 Hct 37.2 % (37-47) 06/14/25 04:10 06/14/25 Plt Count 285 K/mm3 (150-450) 06/14/25 04:10 06/14/25 CHEMISTRY Potassium 4.0 mmol/L (3.3-5.1) 06/14/25 04:10 06/14/25 Sodium 140 mmol/L (133-145) 06/14/25 04:10 06/14/25 Magnesium 2.2 mg/dL (1.6-2.6) 09/06/24 08:09 09/06/24 BUN 17 mg/dL (4-19) 06/14/25 04:10 06/14/25 Creatinine 0.91 mg/dL (0.70-1.20) 06/14/25 04:10 06/14/25 Glucose 114 mg/dL (70-99) H 06/14/25 04:10 06/14/25 POC Glucose 87 mg/dL (74-106) 09/25/24 06:09 09/25/24 COAG PT 12.9 SECONDS (11.7-14.9) 09/06/24 08:09 Pre-Assessment Diagnosis/Proposed Procedure Planned Operative Procedure(s): Endoscopic retrograde cholangiopancreatography. 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 When Was Last Pacemaker Check QUESTION #4 FULL TEXT: You/Your Family Experience fever (hyperthermia) with Anesthesia Last Oral Intake Last Oral intake: Last Oral Intake NPO since Meds taken in AM with sips of water? Meds patient instructed to take am of surgery Any additional information?: Yes NPO since: 00:00 Meds taken in AM with sips of water?: Yes Meds patient instructed to take am of surgery: Maxalt, Oxy IR. PONV PONV - electric razor assembler: PONV - electric razor assembler Female HX of Motion Sickness HX of N/V After Surgery Non-Smoker Duration of Surgery greater than 60 minutes Number of Risk Factors PONV Score Height & Weight Height & Weight: Anesthesia: Height & Weight Height 5 ft 2 in 06/14/25 12:25 Weight: 84.9 kg 06/14/25 12:25 Body Mass Index (BMI) 34.2 06/13/25 18:29 Respiratory Assessment Respiratory Assessment - electric razor assembler: Respiratory Tract Infection Hx - electric razor assembler Hx Respiratory Tract Infection No 06/13/25 20:30 STOP Sleep Apnea STOP Sleep Apnea - electric razor assembler: STOP Sleep Apnea - electric razor assembler Hx Hypertension No 06/13/25 18:29 Hx Sleep Apnea No 06/13/25 18:29 CPAP No 06/13/25 18:29 BIPAP Do you snore loudly (louder No 06/13/25 18:29 than talking or can be heard Do you often feel tired/ No 06/13/25 18:29 fatigued/ sleepy during daytime? Has anyone observed you stop No 06/13/25 18:29 breathing during sleep? STOP Results Negative 06/13/25 18:29 QUESTION #5 FULL TEXT : Do you snore loudly (louder than talking or can be heard through closed doors)? 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 Specify any problems Hx of Preganancy in last 3 No 06/13/25 18:29 Months Nurse Filling Out Transfusion NMARTY 06/13/25 18:29 & Questions: Date: 06/13/25 06/13/25 18:29 Time: 18:49 06/13/25 18:29 Patient unable to answer at this time (ie. confused, unrespo /Reproduction History /Reproductive History - electric razor assembler: /Reproductive Hx- electric razor assembler Hx Now No 06/13/25 20:30 Gestational Age (in weeks): EDC: Hx Hx Para Hx Section SAB No 06/13/25 20:30 Active Medications Active Medications: Current Medications Generic Name Dose Route Start Last Admin Trade Name Freq PRN Reason Stop Dose Admin Cholecalciferol 25 mcg 06/14/25 10:00 06/14/25 09:45 Cholecalciferol (Vit D3) 25 Mcg Tablet (1,000 Units) PO Not Given DAILY ANIA Enoxaparin Sodium 40 mg 06/14/25 10:00 06/14/25 09:45 Enoxaparin 40 Mg/0.4 Ml Syringe SC Not Given DAILY ANIA Hydromorphone HCl 1 mg 06/14/25 10:01 Hydromorphone 0.5 Mg/0.5 Ml Syringe IV Q3H PRN PRN Pain Score 6-10 Sodium Chloride 250 mls @ 15 mls/hr 06/13/25 19:34 IV .[id number] PRN Saline Flush Sodium Chloride 250 mls @ 15 mls/hr 06/13/25 19:34 IV .[id number] PRN Additional IVPB Infusion Lactated Ringer's 1,000 mls @ 100 mls/hr 06/14/25 10:15 06/14/25 11:22 IV 06/15/25 06:14 100 mls/hr .Q10H ANIA Administration Loratadine 10 mg 06/14/25 10:00 06/14/25 09:45 Loratadine 10 Mg Tablet PO Not Given DAILY ANIA Melatonin 3 mg 06/13/25 18:28 Melatonin 3 Mg Tablet PO QHS PRN PRN INSOMNIA Ondansetron HCl 4 mg 06/13/25 18:28 06/14/25 15:42 Ondansetron 4 Mg/2 Ml Vial IV 4 mg Q8H PRN PRN Administration NAUSEA/VOMITING Oxycodone HCl 5 mg 06/13/25 22:00 06/14/25 03:40 Oxycodone 5 Mg Tablet PO 5 mg Q4H PRN PRN Administration Pain Score 4-10 Pantoprazole Sodium 20 mg 06/14/25 10:00 06/14/25 09:45 Pantoprazole Sodium 20 Mg Tablet PO Not Given DAILY ANIA Rizatriptan Benzoate 10 mg 06/14/25 13:40 06/14/25 14:34 Rizatriptan Benzoate 10 Mg Tablet PO 10 mg Q2H PRN PRN Administration MIGRAINE SYMPTOMS Sodium Chloride 10 - 40 ml 06/13/25 19:34 0.9% Saline Lock 10 Ml Syringe IV UD PRN SALINE FLUSH Sucralfate 1 gm 06/14/25 16:00 06/14/25 15:31 Sucralfate 1 Gm Tablet PO Not Given 1HR_ACHS ANIA PFSH Medical History Post-menopausal Wears glasses Anxiety Arthritis Easy bruising Migraine headache Shortness of breath on exertion Smoker History of edema History of pain when walking Home Medications ?Medication ?Instructions ?Recorded ?Last Taken ?Type cholecalciferol (vitamin D3) 25 25 mcg PO DAILY 09/24/24 History mcg (1,000 unit) capsule (Vitamin D3) diclofenac sodium 75 mg 75 mg PO BID 08/29/24 History tablet,delayed release loratadine 10 mg capsule 10 mg PO DAILY 08/29/2409/03 History melatonin 3 mg capsule 3 mg PO QHS 08/29/24 Unknown History sumatriptan succinate 50 mg tablet 50 mg PO PRN PRN mi graine headache 08/29/24 Unknown History omeprazole 20 mg capsule,delayed 20 mg PO DAILY Unknown History release sucralfate 1 gram tablet 1 g PO 4X/DAY 06/13/25 Unkno wn History Allergy/AdvReac Type Severity Reaction Status Date / Time No Known Allergies Allergy Verified 09/25/24 06:02 Surgical History Hx of total knee arthroplasty Hx of arthroscopic knee surgery History of endometrial ablation History of ankle surgery History of carpal tunnel surgery of right wrist Hx of foot surgery Hx of tubal ligation Social History Smoking Status: Current every day smoker tobacco type: cigarettes Review of Systems (Anesthesia) ROS Narrative System reviewed and no additional complaints, except as documented.
--- NOTE | 2025-06-14 16:30 | FLU_PTH ---
PATIENT: CORIE HERNANDEZ LOC: [facility] U#:[id number] AGE/SX: 54/F [facility]: Dr. Tika Casey DO : 1970 BED: 1 DIS: 06/15/2025 SPEC #: [id number] RECD: 06/14/25 19:17 STATUS: AMBER REQ #: [id number] LETY: 06/14/25 16:[address]: Killian Wallace DEPT: CYTOLOGY RECD BY: Andrew Roger ENTERED: 06/15/25 09:52 SP TYPE: Fluid OTHR DR: Dr. Maynor Blanton, DO Dr. Tika Casey, DO Dr. Joshua Yuan MD Tissues: A - Biliary tract, NOS B - Biliary tract, NOS C - Biliary tract, NOS Procedures: Special Stain Group II Surgery Specimen Level IV Cytospin Fluid Comments: @ Ordering doctor for SSII edited from to @ by JASWINDER at 06/15/25 0952 @ Ordering doctor for SUIV edited from to @ by JASWINDER at 06/15/25 0952 @ Ordering doctor for CYSPIN edited from to @ by JASWINDER at 06/15/25 0952 @ Submitting doctor edited from to @ by JASWINDER at 06/15/25 0952 HEADER OPERATION: ERCP PRE-OP DIAGNOSIS: Abdominal pain, biliary obstruction, mass of head of pancreas TISSUE SUBMITTED: A- Biliary stricture - brushings, B- Biliary stricture - brush tip #1, C- Biliary stricture - brush tip #2 DIAGNOSIS CYTOLOGY A. Biliary stricture, brushings (smear x3): - Atypical cells suspicious for malignancy- see Comment. B. Biliary stricture, brush tip #1 (cytospin, cellblock): - Non-diagnostic. - Acellular specimen. C. Biliary stricture, brush tip #2 (cytospin, cellblock): - Atypical cells suspicious for malignancy - see Comment. COMMENT Correlate with [id number]. Selected slides/images were reviewed in intradepartmental consultation by Dr Jase Eason (Community pathology division, [facility]). The findings were discussed with Dr Bev Stoner, 06/22/25. CYTOLOGY STUDY Slides are reviewed. CYTOLOGY GROSS A. Received are 3 smears labeled with the patient's name and designated per the requisition as Biliary stricture - brushings. Submitted for staining. B. Received is 1 ml of hazy-colorless fluid with tip labeled with the patient's name and and designated per the requisition as Biliary stricture - brush tip #1. Submitted for cytology and cell block preparation. C. Received is 1 ml of cloudy-red fluid with tip labeled with the patient's name and and designated per the requisition as Biliary stricture - brush tip #2. Submitted for cytology and cell block preparation. 06/15/2025 CPT: 25423b9,[id number]
--- NOTE | 2025-06-14 16:50 | CON.PCM.GI_ITS ---
HPI Consult Data Date of Consult: 06/14/25 HPI Narrative Reason for Consultation: jaundice HPI Narrative: CORIE HERNANDEZ, is a 54 F who presents [facility] Medical History Post-menopausal Wears glasses Anxiety Arthritis Easy bruising Migraine headache Shortness of breath on exertion Smoker History of edema History of pain when walking Home Medications ?Medication ?Instructions ?Recorded ?Last Taken ?Type cholecalciferol (vitamin D3) 25 25 mcg PO DAILY 09/24/24 History mcg (1,000 unit) capsule (Vitamin D3) diclofenac sodium 75 mg 75 mg PO BID 08/29/24 History tablet,delayed release loratadine 10 mg capsule 10 mg PO DAILY 08/29/2409/03 History melatonin 3 mg capsule 3 mg PO QHS 08/29/24 Unknown History sumatriptan succinate 50 mg tablet 50 mg PO PRN PRN mi graine headache 08/29/24 Unknown History omeprazole 20 mg capsule,delayed 20 mg PO DAILY Unknown History release sucralfate 1 gram tablet 1 g PO 4X/DAY 06/13/25 Unkno wn History Allergy/AdvReac Type Severity Reaction Status Date / Time No Known Allergies Allergy Verified 09/25/24 06:02 Surgical History Hx of total knee arthroplasty Hx of arthroscopic knee surgery History of endometrial ablation History of ankle surgery History of carpal tunnel surgery of right wrist Hx of foot surgery Hx of tubal ligation Social History Smoking Status: Current every day smoker tobacco type: cigarettes Lab / Micro Data 06/14/25 04:10 06/14/25 04:10 Labs: Laboratory Results - last 24 hr 06/14/25 04:10: WBC 7.9, RBC 4.49, Hgb 12.8, Hct 37.2, MCV 82.9, MCH 28.5, MCHC 34.4, RDW Std Deviation 46.5 H, RDW Coeff of [place] 15.8 H, Plt Count 285, MPV 11.6, Sodium 140, Potassium 4.0, Chloride 104, Carbon Dioxide 22.9, Anion Gap 12, BUN 17, Creatinine 0.91, Estim Creat Clear Calc 69.75, Est GFR (MDRD) Non-Af 74, BUN/Creatinine Ratio 19.1, Glucose 114 H, Calcium 9.5, Total Bilirubin 5.50 H, AST 481 H, ALT 950 H, Alkaline Phosphatase 820 H, Total Protein 6.4, Albumin 3.7, Globulin 2.7, Albumin/Globulin Ratio 1.4 Imaging Radiology Impression Gallbladder Ultrasound 06/13/25 15:19 IMPRESSION: Dilated intrahepatic biliary ducts. Normal gallbladder. [facility]
--- NOTE | 2025-06-14 16:50 | EX.PCM.CON.G ---
HPI Consult Data Date of Consult: 06/14/25 HPI Narrative Reason for Consultation: jaundice HPI Narrative: CORIE HERNANDEZ, is a 54-year-old female presents with painless, progressive yellow discoloration of her skin and eyes over the past two to three weeks. She reports associated generalized pruritus (itching) and dark urine. She also notes light-colored, derik-like stools. The patient reports a 10-pound unintentional weight loss over the past month. She denies any abdominal pain, nausea, vomiting, or fever. She is a current smoker. No alcohol use reported. Lives with her . CT Scan (Abdomen/Pelvis): 14 mm mass in the head of the pancreas. Presence of gallstones. Dilation of the common bile duct, likely due to compression by the pancreatic head mass. No evidence of metastasis on this scan. [facility] Medical History Post-menopausal Wears glasses Anxiety Arthritis Easy bruising Migraine headache Shortness of breath on exertion Smoker History of edema History of pain when walking Home Medications ?Medication ?Instructions ?Recorded ?Last Taken ?Type cholecalciferol (vitamin D3) 25 25 mcg PO DAILY 08/29/24 09/24/24 History mcg (1,000 unit) capsule (Vitamin D3) diclofenac sodium 75 mg 75 mg PO BID 08/29/24 09/20/24 History tablet,delayed release loratadine 10 mg capsule 10 mg PO DAILY 08/29/24 09/20/24 History melatonin 3 mg capsule 3 mg PO QHS 08/29/24 Unknown History sumatriptan succinate 50 mg tablet 50 mg PO PRN PRN migraine headache 08/29/24 Unknown History omeprazole 20 mg capsule,delayed 20 mg PO DAILY 06/13/25 Unknown History release sucralfate 1 gram tablet 1 g PO 4X/DAY 06/13/25 Unknown History Allergy/AdvReac Type Severity Reaction Status Date / Time No Known Allergies Allergy Verified 09/25/24 06:02 Surgical History Hx of total knee arthroplasty Hx of arthroscopic knee surgery History of endometrial ablation History of ankle surgery History of carpal tunnel surgery of right wrist Hx of foot surgery Hx of tubal ligation Social History Smoking Status: Current every day smoker tobacco type: cigarettes ROS Constitutional Constitutional: Denies fatigue, fever(s), poor appetite, weight gain or weight loss Gastrointestinal Gastrointestinal: Denies belching, bloating, change in bowel habits, change in stool character, chewing difficulty, coffee ground emesis, constipation, cramping, diarrhea, dyspepsia, dysphagia, early satiety, excessive flatus, fecal incontinence, heartburn, hematemesis, hematochezia, hemorrhoids, loose stools, melena, nausea, odynophagia, rectal bleeding, tenesmus, vomiting or weight changes Physical Exam Const alert, oriented x3, no apparent distress and healthy appearing General Appearance: cooperative GI normal to inspection, nondistended, normoactive bowel sounds, soft to palpation, non-tender and non-distended Percussion: normal to percussion Rectal Exam: deferred Lab / Micro Data 06/14/25 04:10 06/14/25 04:10 Labs: Laboratory Results - last 24 hr 06/14/25 04:10: WBC 7.9, RBC 4.49, Hgb 12.8, Hct 37.2, MCV 82.9, MCH 28.5, MCHC 34.4, RDW Std Deviation 46.5 H, RDW Coeff of [place] 15.8 H, Plt Count 285, MPV 11.6, Sodium 140, Potassium 4.0, Chloride 104, Carbon Dioxide 22.9, Anion Gap 12, BUN 17, Creatinine 0.91, Estim Creat Clear Calc 69.75, Est GFR (MDRD) Non-Af 74, BUN/Creatinine Ratio 19.1, Glucose 114 H, Calcium 9.5, Total Bilirubin 5.50 H, AST 481 H, ALT 950 H, Alkaline Phosphatase 820 H, Total Protein 6.4, Albumin 3.7, Globulin 2.7, Albumin/Globulin Ratio 1.4 Imaging Radiology Impression Gallbladder Ultrasound 06/13/25 15:19 IMPRESSION: Dilated intrahepatic biliary ducts. Normal gallbladder. Reading Location: [facility] Assessment & Plan Assessment/Plan (1) Mass of head of pancreas: (2) Biliary obstruction: (3) Abdominal pain: PLAN: Plan Problem List: Painless obstructive jaundice:?Likely caused by the pancreatic head mass compressing the common bile duct. Pancreatic head mass (14mm):?Highly suspicious for pancreatic adenocarcinoma, especially given the painless jaundice, smoking history, and weight loss. Cholelithiasis (gallstones):?Found on imaging, though not the primary cause of the current obstruction. Nicotine dependence:?Continued smoking is a significant risk factor for pancreatic malignancy. Unintentional weight loss:?A constitutional symptom often associated with malignancy. Pruritus:?Secondary to bile salt deposition in the skin. Differential Diagnosis: Pancreatic Adenocarcinoma:?Most likely diagnosis, consistent with painless jaundice, head of pancreas mass, weight loss, and smoking history. Autoimmune Pancreatitis (AIP):?Can present with painless jaundice and a pancreatic mass, but typically responds to steroids. Less likely given her smoking history and significant weight loss. Cholangiocarcinoma:?Malignancy of the bile duct, which can also cause obstructive jaundice. The CT finding of a discrete pancreatic head mass makes this less likely, though still possible. Chronic Pancreatitis:?Can cause bile duct strictures and mimic a mass on imaging, but typically presents with significant pain. ?Plan Therapeutic: Biliary Decompression:?Plan for ERCP with stent placement to relieve the obstructive jaundice. This will alleviate symptoms like pruritus and allow for further definitive treatment once the pathology is confirmed. Surgical Consultation:?Refer to a hepatobiliary surgeon for evaluation of resectability. Oncology Consultation:?Refer to oncology for discussion of treatment options, including chemotherapy, depending on the stage and resectability of the tumor. Pain/Symptom Management:?Prescribe medication for pruritus as needed. Continue to monitor for abdominal pain. Diagnostic: Endoscopic Ultrasound with Fine Needle Aspiration (:?Recommended for definitive tissue diagnosis of the pancreatic head mass. Tumor Markers:?Order CA 19-9. While not specific, elevated levels support the suspicion of pancreatic cancer, though they can also be elevated in other conditions causing jaundice. Labs:?Complete metabolic panel, CBC, amylase, lipase, and coagulation studies. Charges/Coding Visit Charges Inpatient E&M: 94510 Init Hosp L3
[2025-06-14] MEDS: Lidocaine 1% (5 ml sdv) 5 ML Vial 3 ML IV (17:32)
--- NOTE | 2025-06-14 18:57 | OP.ERCP_ITS ---
Patient Name: Kevin Lugo Procedure Date: 06/14/2025 4:53 PM Date of : 1970 Age: 54 Procedure: ERCP Indications: Jaundice, Elevated liver enzymes, Malignant tumor of the head of pancreas Providers: Killian Wallace DO Medicines: General Anesthesia Patient Profile: This is a 54 year old female. Refer to note in patient chart for documentation of history and physical. Patient has symptoms of acute right upper quadrant abdominal pain, acute epigastric abdominal pain and acute jaundice. This patient has no history of previous ERCP. This patient has no history of surgical alteration of the upper digestive tract anatomy. Complications: No immediate complications. Procedure: Pre-Anesthesia Assessment: - Prior to the procedure, a History and Physical was performed, and patient medications and allergies were reviewed. The patient is competent. The risks and benefits of the procedure and the sedation options and risks were discussed with the patient. All questions were answered and informed consent was obtained. Patient identification and proposed procedure were verified by the physician in the pre-procedure area. Mental Status Examination: alert and oriented. Airway Examination: normal oropharyngeal airway and neck mobility. Respiratory Examination: clear to auscultation. CV Examination: normal. Prophylactic Antibiotics: The patient does not require prophylactic antibiotics. Prior Anticoagulants: The patient has taken no anticoagulant or antiplatelet agents except for NSAID medication. ASA Grade Assessment: II - A patient with mild systemic disease. After reviewing the risks and benefits, the patient was deemed in satisfactory condition to undergo the procedure. The anesthesia plan was to use monitored anesthesia care (MAC). Immediately prior to administration of medications, the patient was re-assessed for adequacy to receive sedatives. The heart rate, respiratory rate, oxygen saturations, blood pressure, adequacy of pulmonary ventilation, and response to care were monitored throughout the procedure. The physical status of the patient was re-assessed after the procedure. After obtaining informed consent, the scope was passed under direct vision. Throughout the procedure, the patient's blood pressure, pulse, and oxygen saturations were monitored continuously. The Duodenoscope was introduced through the mouth, and advanced to the duodenum and used to inject contrast into the bile duct. The ERCP was accomplished without difficulty. The patient tolerated the procedure well. Scope In: 5:41:28 PM Scope Out: 6:48:17 PM Total Procedure Duration Time 1 hour 6 minutes 49 seconds Findings: The breading machine tender film was normal. The esophagus was successfully intubated under direct vision. The scope was advanced to a normal major papilla in the descending duodenum without detailed examination of the pharynx, larynx and associated structures, and upper GI tract. The upper GI tract was grossly normal. A long 0.025 inch Jagwire was passed into the biliary tree. The short-nosed traction sphincterotome was passed over the guidewire and the bile duct was then deeply cannulated. Contrast was injected. I personally interpreted the bile duct images. There was brisk flow of contrast through the ducts. Image quality was adequate. Contrast extended to the entire biliary tree. Opacification of the entire biliary tree except for the cystic duct and gallbladder and entire biliary tree was successful. The maximum diameter of the ducts was 10 mm. The lower third of the main bile duct contained a single localized stenosis 3 mm in length. The main bile duct was diffusely dilated, secondary to a stricture. The largest diameter was 12 mm. A 5 mm biliary sphincterotomy was made with a braided traction (standard) sphincterotome using ERBE electrocautery. There was no post-sphincterotomy bleeding. The biliary tree was swept with a 12 mm balloon starting at the upper third of the main bile duct, middle third of the main bile duct, lower third of the main duct, bifurcation, left intrahepatic duct(s), left main hepatic duct, right intrahepatic duct(s) and right main hepatic duct. Sludge was swept from the duct. All stones were removed. Pus was swept from the duct. Cells for cytology were obtained by brushing in the lower third of the main bile duct. The bile duct was explored endoscopically using the SpyGlass direct visualization system. The SpyScope was advanced to the lower third of the main duct. Visibility with the scope was good. The lumen of the in the biliary system was severely narrowed. Dilation of the lower third of the main bile duct with 10 Fr catheter dilator was successful. One 10 Fr by 9 cm temporary stent was placed 5 cm into the common bile duct. Bile flowed through the stent. The stent was in good position. Impression: - Severely narrowed lumen in the biliary tract visualized via SpyGlass. - A single localized biliary stricture was found in the lower third of the main bile duct. The stricture was malignant appearing. - The entire main bile duct was dilated, secondary to a stricture. - Choledocholithiasis was found. Complete removal was accomplished by biliary sphincterotomy and balloon extraction. - A biliary sphincterotomy was performed. - The biliary tree was swept and pus was found. - Cells for cytology obtained in the lower third of the main duct. - The lower third of the main bile duct was successfully dilated. - One temporary stent was placed into the common bile duct. Recommendation: CA 19-9, AFP, CEA Procedure Code(s): --- Professional --- 03056, Endoscopic retrograde cholangiopancreatography (ERCP); with placement of endoscopic stent into biliary or pancreatic duct, including pre- and post-dilation and guide wire passage, when performed, including sphincterotomy, when performed, each stent [id number], Endoscopic retrograde cholangiopancreatography (ERCP); with removal of calculi/debris from biliary/pancreatic duct(s) 49912, Endoscopic cannulation of papilla with direct visualization of pancreatic/common bile duct(s) (List separately in addition to code(s) for primary procedure) 63442, 26, Endoscopic catheterization of the biliary ductal system, radiological supervision and interpretation CPT copyright 2021 [employer]. All rights reserved. The codes documented in this report are preliminary and upon lei seller review may be revised to meet current compliance requirements. Killian Wallace DO 06/14/2025 6:56:22 PM This report has been signed electronically. Number of Addenda: 0 Note Initiated On: 06/14/2025 4:53 PM
--- NOTE | 2025-06-14 18:57 | OP.PROVAT_ITS ---
06/14/2025 Joshua Yuan Re : ERCP procedure for Kevin Yuan This procedure was performed on June. My impressions and recommendations are as follows: Impressions : - Severely narrowed lumen in the biliary tract visualized via SpyGlass. - A single localized biliary stricture was found in the lower third of the main bile duct. The stricture was malignant appearing. - The entire main bile duct was dilated, secondary to a stricture. - Choledocholithiasis was found. Complete removal was accomplished by biliary sphincterotomy and balloon extraction. - A biliary sphincterotomy was performed. - The biliary tree was swept and pus was found. - Cells for cytology obtained in the lower third of the main duct. - The lower third of the main bile duct was successfully dilated. - One temporary stent was placed into the common bile duct. Recommendations : CA 19-9, AFP, CEA My findings are described in the full procedure note, which is enclosed. If I can be of further assistance, please feel free to contact me at . Sincerely, Killian Wallace, 06/14/2025 6:56:22 PM This report has been signed electronically.
[2025-06-14] MEDS: fentaNYL 100 MCG/2 ML Ampul IV (19:08)
--- NOTE | 2025-06-14 19:10 | PCM.POST.ANE ---
Anesthesia: Postop Eval I Current Vital Signs Temperature: 97.8 F Pulse Rate: 78 Blood Pressure: 118/66 Respiratory Rate: 16 Pulse Ox: 99 Oxygen Delivery Method: Room Air Assessment Airway patent: Yes Spontaneous unlabored respirations: Yes Mental status: Asleep (Arousable) nausea: No Vomiting: No Anesthesia Complication: No Fluid Hydration Crystalloid volume administer (ml): 800 Total IV fluid infused: 800 Progress Note Anesthesia document: Postop Eval 1 completed: Yes
--- NOTE | 2025-06-14 19:17 | MISC_PTH ---
PATIENT: CORIE HERNANDEZ LOC: MS3 U#:[id number] AGE/SX: 54/F ROOM: MS309 RE06/13/[address]: Dr. Tika Casey DO : 1970 BED: 1 DIS: 06/15/2025 SPEC #: [id number] RECD: 06/15/25 10:48 STATUS: AMBER REQ #: [id number] LETY: 06/14/25 19:[address]: Tika Casey DEPT: SURGICAL PATHOLOGY RECD BY: Andrew Roger ENTERED: 06/15/25 10:49 SP TYPE: MISC PATY DR: DO Dr. Killian Tracy DO Dr. Scott Brown, MD Tissues: Biliary tract, NOS Procedures: Surgery Specimen Level IV HEADER OPERATION: ERCP PRE-OP DIAGNOSIS: Abdominal pain, biliary obstruction, mass of head of pancreas TISSUE SUBMITTED: A- Biliary stricture - spy bite MICROSCOPIC DIAGNOSIS A. Biliary stricture, spy bite, ERCP: - Non-diagnostic. - No tissue is recovered after processing. COMMENT Correlate with [id number]. MICROSCOPIC DESCRIPTION Slides are reviewed. GROSS DESCRIPTION A. Received in formalin labeled with the patient's name and date of . Designated as spy bite-biliary stricture is a <0.1 cm geoff of apparent tissue. Entirely submitted in 1 cassette. Specimen unlikely to survive processing. MT 06/15/2025 CPT:99272
--- NOTE | 2025-06-14 21:02 | PCM.POSTANE2 ---
Anesthesia Postop Eval I Sum Postop Eval Completion status Anesthesia document: Postop Eval 1 completed: Yes Anesthesia Postop Eval I Summary Anesthesia Postop Eval I Summary: Anesthesia Postop Eval I: Assessment Summary Airway patent Yes 06/14/25 19:12 Spontaneous unlabored Yes 06/14/25 19:12 respirations Mental status Asleep - Arousable 06/14/25 19:12 nausea No 06/14/25 19:12 Vomiting No 06/14/25 19:12 Anesthesia Postop Eval I: Fluid Summary Crystalloid volume administer 800 06/14/25 19:12 (ml) Colloids volume administered ( ml) Blood Product volume administered (ml) Total IV fluid infused 800 06/14/25 19:12 Anesthesia Postop Eval I: Summary Notes Anesthesia Complication No 06/14/25 19:12 Anesthesia Complication Comment: Post-operative progress note Anesthesia: Postop Eval II Evaluation Mental status: Awake and Calm Pain Level: 4 nausea: No Vomiting: No Complications Anesthesia Complication: No
[2025-06-14] MEDS: MELATONIN 3 MG TABLET PO (22:08)
[2025-06-15] MEDS: HYDROmorphone 0.5 MG/0.5 ML SYRINGE 1 MG IV ×2 (00:03→10:57)
[2025-06-15 04:00] VITALS: BP 108/55; PULSE 56; RESP 16; TEMP 36.6; O2SAT 94
[2025-06-15 05:52] LABS: Hematocrit 36.0 % (37-47); Hemoglobin 12.2 g/dL (12.0-15.0); Mean Corp Hgb Conc 33.9 g/dL (32-36); Mean Corpuscular Volume 82.9 fL (81-99); Mean Platelet Vol. 11.9 fl (6.2-12.0); Platelet Count 307 K/mm3 (150-450); RBC Distribution Width CV 15.6 % (11.6-14.6); RBC Distribution Width SD 47.0 fl (35.1-43.9); Red Blood Count 4.34 M/mm3 (4.2-5.4); White Blood Count 15.1 K/mm3 (4.4-11.0)
[2025-06-15 06:28] LABS: Magnesium 1.7 mg/dL (1.5-2.2)
[2025-06-15 06:41] LABS: AST(SGOT) 464 U/L (<=31); Alanine Aminotransfer ALT/SGPT 968 U/L (<=34); Albumin, Serum 3.6 g/dL (3.5-5.0); Alkaline Phosphatase 789 U/L (35-104); Anion Gap 14 (5-15); BUN 17 mg/dL (4-19); BUN/Creat Ratio 21.7 RATIO (10-20); Calcium,Total 9.2 mg/dL (7.6-11.0); Carbon Dioxide 21.7 mmol/L (21.0-32.0); Chloride 103 mmol/L (98-108); Estimated Creatinine Clearance 81.39 ml/min (50-250); Globulin 2.6 g/dL (2.2-4.2); Glucose 121 mg/dL (70-99); Potassium 4.2 mmol/L (3.3-5.1)
[2025-06-15 08:04] VITALS: O2SAT 95
[2025-06-15 09:12] VITALS: BP 113/63; PULSE 62; RESP 16; TEMP 37.3; O2SAT 97
[2025-06-15] MEDS: 0.9% Saline Lock 10 ML Syringe IV (09:45)
[2025-06-15] MEDS: Cholecalciferol (VIT D3) 25 MCG TABLET (1,000 UNITS) PO (09:46)
--- NOTE | 2025-06-15 12:14 | PCM.DC.SUM ---
Providers Date of Admission: 06/13/25 Date of Discharge: 06/15/25 Primary Care Physician: Dr. Joshua Yuan MD Consultations 06/13/25 18:28 Consult: Gastroenterology Routine Consulting Provider: MadisonKillian Reason for Consult: painless jaundice w/ CBD dilation and pancreatic head mass EMERGENT Consult: No MD Notified: Yes Date Notified: 06/13/25 Time Notified: 18:54 Method of Notification: Text Reason For Visit: ABDOMINAL PAIN W/ JAUNDICE & PANCREATIC HEAD MASS Diagnosis Discharge Diagnosis (1) Mass of head of pancreas: Status: Acute Code(s): K86.89 - Other specified diseases of pancreas (2) Biliary obstruction: Status: Acute Code(s): K83.1 - Obstruction of bile duct (3) Abdominal pain: Status: Acute Code(s): R10.9 - Unspecified abdominal pain (4) Jaundice: Status: Acute Code(s): R17 - Unspecified jaundice (5) Transaminitis: Status: Acute Code(s): R74.01 - Elevation of levels of liver transaminase levels (6) Hyperbilirubinemia: Status: Acute Code(s): E80.6 - Other disorders of bilirubin metabolism Medications at Discharge Home Medications cholecalciferol (vitamin D3) 25 mcg (1,000 unit) capsule (Vitamin D3) 25 mcg PO DAILY 08/29/24 diclofenac sodium 75 mg tablet,delayed release 75 mg PO BID 08/29/24 loratadine 10 mg capsule 10 mg PO DAILY 08/29/24 melatonin 3 mg capsule 3 mg PO QHS 08/29/24 sumatriptan succinate 50 mg tablet 50 mg PO PRN PRN migraine headache 08/29/24 ciprofloxacin HCl 500 mg tablet (Cipro) 500 mg PO BID #20 tabs 06/15/25 metronidazole 500 mg tablet 500 mg PO Q8H #30 tabs 06/15/25 omeprazole 20 mg capsule,delayed release 40 mg PO DAILY 06/15/25 sucralfate 1 gram tablet 1 g PO 4X/DAY #180 tabs 06/15/25 tramadol 50 mg tablet 50 mg PO Q8H PRN pain #30 tabs 06/15/25 Hospital Course Operations ERCP and - Summary of Care Provided Minutes Spent on Discharge: 37 Hospital Course: Mrs. Lugo is a 54-year-old white female who presented to emergency department at [facility] on 06/13/2025 with abdominal pain and jaundice. Patient started having some upper abdominal pain and epigastric pain about 3 months prior to presentation she had made an outpatient appointment to see gastroenterology was scheduled for this 06/15/2025. She stated over that period of time she has had discomfort eating and poor p.o. intake with weight loss of about 30 pounds. Over the past several days prior to presentation she noticed her urine became dark and family recommended she be seen in the emergency department. Vital signs on presentation showed a temperature of 97.6, heart rate 79, respiratory 16, blood pressure was 123/77 and pulse ox was 98% on room air. Her CBC was unremarkable. Chemistry panel was overtly unremarkable but liver functions were markedly abnormal with a total bilirubin of 5.65, AST of 507 and an ALT of 1069. UA was not consistent with infection but did have significant bilirubin and urobilinogen. CT of the abdomen pelvis was performed and showed dilated intra [place] biliary ducts and the common bile duct down to the head of the pancreas or a 14 mm mass in the head of the pancreas was noted. She also was found to have small gallstones. Given the findings on CT gallbladder ultrasound was performed and showed dilated intrahepatic biliary ducts and normal gallbladder. Pancreatic cancer was suspected and she was admitted to the hospital, placed on IV fluids, made n.p.o. and pain medication was provided. Gastroenterology was consulted and she was taken for ERCP on 06/14/2025. ERCP showed severely narrowed lumen in the biliary tract visualized via spyglass with a single localized biliary stricture in the lower third of the main bile duct that appeared malignant, the entire main bile duct was dilated secondary to stricture, choledocholithiasis was found. Biliary sphincterotomy with balloon extraction was performed. Cells for cytology were obtained in the lower third of the main duct and 1 temporary stent was placed in the common bile duct. The biliary tree was swept and pus was found. Given these findings she was started on antibiotics with Cipro and Flagyl which she will complete treatment of 10 days. CA 19-9, AFP, and CEA were ordered. These as well as pathology were pending at the time of discharge. She was started on a diet and tolerated with improved tolerance however still had some mild pain. She was sent home with 7-day supply of tramadol and Cipro and Flagyl. Follow-up was arranged with Dr. Wallace's office on June 25, 2025 at 12:30 in the afternoon. She was discharged home in stable condition on 06/15/2025 and prescriptions were sent to the local pharmacy. Discharge diagnoses: Abdominal pain Pancreatic head mass Jaundice Biliary ductal dilation with biliary stenosis Transaminitis Hyperbilirubinemia GERD Seasonal allergies Obesity Tobacco abuse Physical Exam Narrative Patient states she is feeling better overall. Had a little bit of abdominal pain with diet last night and was reported to have just a bit today with eating a regular diet at lunch. Const alert, oriented x3, no apparent distress and well nourished; Negative for average body habitus Constitutional Narrative: Middle-age white female, walking around the room getting ready to take a shower, and son at bedside, appears much more comfortable than yesterday and that she is feeling much better overall General Appearance: cooperative, comfortable, well kempt and well developed Exam Limitations: no limitations Nutritional Appearance: obese HEENT normocephalic, head/scalp atraumatic, hearing grossly normal bilaterally and moist oral mucous membranes HEENT Narrative: Mallampati 2-3, no thrush Eyes EOMs intact bilaterally and conjunctivae normal Eyes Narrative: Improving scleral icterus Neck supple Neck Narrative: Trachea midline Resp normal respiratory effort, normal air movement, no retractions, no use of accessory muscles and clear to auscultation bilaterally Resp Narrative: Diminished but clear Auscultation: Negative for rales, rhonchi or wheezes Cardio regular rate, regular rhythm, S1 normal heart sound, S2 normal heart sound, no murmurs, no rub, no gallops and no clicks GI normal to inspection, nondistended, normoactive bowel sounds and soft to palpation; Negative for non-tender GI Narrative: Minimal tenderness in the epigastrium extending to the left upper quadrant-improved overall Extremity no clubbing, cyanosis or edema Extremity Narrative: Pedal pulses are 2+, radial pulses are 2+ Skin skin turgor normal, No no jaundice, no petechiae and no mottling Skin Narrative: Improving jaundice Neuro moves all extremities and no focal motor deficits Speech: speech normal Psych mental status grossly normal and affect normal Psych Narrative: Eye contact is good and patient interacted appropriately Weight / BMI Weight Weight: 84.9 kg Body Mass Index (BMI) 34.2 ABG / Lab / Microbiology Data 06/15/25 04:55 06/15/25 04:55 Laboratory: Laboratory Results - last 24 hr 06/15/25 04:55: WBC 15.1 H, RBC 4.34, Hgb 12.2, Hct 36.0 L, MCV 82.9, MCH 28.1, MCHC 33.9, RDW Std Deviation 47.0 H, RDW Coeff of Morelia 15.6 H, Plt Count 307, MPV 11.9, Sodium 139, Potassium 4.2, Chloride 103, Carbon Dioxide 21.7, Anion Gap 14, BUN 17, Creatinine 0.78, Estim Creat Clear Calc 81.39, Est GFR (MDRD) Non-Af 89, BUN/Creatinine Ratio 21.7 H, Glucose 121 H, Calcium 9.2, Phosphorus 5.5 H, Magnesium 1.7, Total Bilirubin 2.59 H, AST 464 H, ALT 968 H, Alkaline Phosphatase 789 H, Total Protein 6.2, Albumin 3.6, Globulin 2.6, Albumin/Globulin Ratio 1.4 Radiography Diagnostic Testing: Radiology Impression Endo Retro Cholangiopancreatogram 06/14/25 07:32 IMPRESSION: ERCP as above, demonstrating intra and extrahepatic biliary ductal dilatation, as noted on prior CT with suspected pancreatic head mass lesion. Reading Location: [facility]/ Instructions Discharge Activity: Return to Normal Activity DC O2, CPAP, BIPAP Needs Home O2 Discharge instructions: No Meaningful Use Info Meaningful Use Meaningful Use Diagnoses (Choose all that apply): None applicable Discharge Plan Admission Admit Date/Time: 06/13/25 16:58 Primary Reason for Your Visit: Abdominal pain/nausea/vomiting Attending Provider: Tika Casey Primary Care Provider: Joshua Yuan Consulting Providers: Killian Wallace; Maynor Blanton Instructions Additional Instructions / Restrictions: 1. Please call Dr. Wallace's office with worsening abdominal pain, increased nausea and vomiting or increased jaundice 2. Please complete antibiotics as noted below. Do not utilize alcohol while taking metronidazole. Discharge Orders/Prescriptions Prescriptions: New ciprofloxacin HCl [Cipro] 500 mg tablet 500 mg PO BID Qty: 20 0RF metronidazole 500 mg tablet 500 mg PO Q8H Qty: 30 0RF tramadol 50 mg tablet 50 mg PO Q8H PRN (Reason: pain) Qty: 30 0RF Continued diclofenac sodium 75 mg tablet,delayed release (DR/EC) 75 mg PO BID cholecalciferol (vitamin D3) [Vitamin D3] 25 mcg (1,000 unit) capsule 25 mcg PO DAILY melatonin 3 mg capsule 3 mg PO QHS loratadine 10 mg capsule 10 mg PO DAILY sumatriptan succinate 50 mg tablet 50 mg PO PRN PRN (Reason: migraine headache) omeprazole 20 mg capsule,delayed release(DR/EC) 40 mg PO DAILY sucralfate 1 gram tablet 1 g PO 4X/DAY Qty: 180 0RF Referrals / Follow Up: Joshua Yuan MD [Primary Care Provider] - See Referral Note (As needed) Soumya Pizano NP-C [Med Staff - Adv Practice Prof] - 06/25/25 12:30 pm Disposition Disposition (needs filled in before D/C Order can be placed): Home, Self Care Charges/Coding Visit Charges Inpatient E&M: 93275 Disch Hosp >30min
--- NOTE | 2025-06-15 12:17 | CASEMGMT ---
Social Work- Per hospitalist request, EZE called to schedule follow up outpatient with GI. EZE was told 07/13 was the soonest appointment available. EZE updated hospitalist. EZE followed up with pt. DERRELL Taylor
[2025-06-16 04:07] LABS: Carcinoembryonic Antigen 8.0 ng/mL (0.0-4.7)
--- NOTE | 2025-06-18 13:30 | CASEMGMT ---
Social Work- SW received a message from pt family requesting assistance in contacting Dr Friend office, as they had been receiving a message and not able to reach someone. SW called and spoke with Rita who reports that they did speak with the son recently. SW updated family that message received and SW verified contact with office. DERRELL Taylor
== END 2025-06-15 13:04 | disposition home or self-care (01) | DRG 438 ==
LOC: ED 17:28 → MS3 18:00
PROVIDERS: Internal Medicine Gastroenterology; Admitting Provider Hospitalist; Emergency Provider Emergency Medicine; PCP Family Medicine; Visit Provider Internal Medicine
PROC: 0FC98ZZ Extirpation of Matter from Common Bile Duct, Via Natural or Artificial Opening Endoscopic (ICD-10-PCS; CPT 43260; principal; 2025-06-14 16:10)
DX: K86.89 Other specified diseases of pancreas (principal); K83.1 Obstruction of bile duct; K80.71 Calculus of gallbladder and bile duct without cholecystitis with obstruction; E66.811 Obesity, class 1; K21.9 Gastro-esophageal reflux disease without esophagitis; K83.8 Other specified diseases of biliary tract; J30.2 Other seasonal allergic rhinitis; F17.210 Nicotine dependence, cigarettes, uncomplicated; K82.8 Other specified diseases of gallbladder; R74.01 Elevation of levels of liver transaminase levels; Z68.34 Body mass index [BMI] 34.0-34.9, adult
CPT/HCPCS: 36415; 74177; 74330; 76000; 76705; 80053; 81001; 82105; 82378; 83690; 83735; 84100; 85025; 85027; 86301; 88108; 88305; 88313; 93005; 99284; C1889; Q9967; A4216; C1726; J0744; J2405

== ENCOUNTER 2025-06-18 16:12 | Emergency (ER) | payer OTHER, SELFPAY ==
[2025-06-18 16:13] VITALS: BP 125/71; PULSE 64; RESP 16; TEMP 35.7; O2SAT 100; BMI 35.9
--- NOTE | 2025-06-18 17:03 | RAD_ITS ---
PROCEDURE: CHEST PA AND LATERAL 06/18/2025 REASON FOR EXAM: COUGH, RECENT HOSPITALIZATION TECHNIQUE: Procedure Code: RADCXR Modality: DX Procedure: CHEST PA AND LATERAL COMPARISON: 06/16/2021. FINDINGS: The heart is normal in size. The lungs are clear. No acute osseous abnormalities. RAD/Chest PA and Lateral IMPRESSION: NO ACUTE FINDINGS. Reading Location: [id number]
--- NOTE | 2025-06-18 17:03 | EKG12_ITS ---
Test Reason : PRE-OP Blood Pressure : */* mmHG Vent. Rate : 57 BPM Atrial Rate : 57 BPM P-R Int : 138 ms QRS Dur : 78 ms QT Int : 430 ms P-R-T Axes : 51 3 18 degrees QTcB Int : 418 ms Sinus bradycardia Otherwise normal ECG When compared with ECG of 06-Sep-2024 07:53, No significant change was found Confirmed by Azar Perez ([id number]), acquisitions editor ROSA WINTER ([id number]) on 06/19/2025 5:48:17 AM Referred By: Confirmed By: Azar Perez
--- NOTE | 2025-06-18 17:04 | US_ITS ---
PROCEDURE: GALLBLADDER 06/18/2025 REASON FOR EXAM: PAIN TECHNIQUE: Procedure Code: USGB Modality: US Procedure: GALLBLADDER COMPARISON: CT abdomen and pelvis from the same day 06/18/2025. FINDINGS: Liver: Echogenic suggestive of fatty infiltration. Gallbladder: The gallbladder is distended. No gallbladder wall thickening. No gallbladder wall thickening. No pericholecystic fluid. The technologist reported a negative Goddard sign. Common bile duct: Mild intra and extrahepatic biliary dilation. Pancreas: A 1.9 x 1.7 x 1.5 cm mass at the pancreatic head. US/Gallbladder IMPRESSION: The gallbladder is distended with sludge. No evidence of acute cholecystitis. A 1.9 x 1.5 x 1.7 cm hypoechoic mass at the pancreatic head. Mild biliary dilation. Please refer to separate CT abdomen and pelvis were further details. Reading Location: [facility]
--- NOTE | 2025-06-18 17:05 | EX.ED.DYSGE1 ---
HPI History of Present Illness Chief Complaint: Fatigue Narrative Narrative: Patient is a 54-year-old female presenting to the emergency department for worsening abdominal pain and fatigue that started last night. Patient was seen in the ER on 06/13 for abdominal pain and was diagnosed with a pancreatic head mass and dilated bile ducts. She was admitted overnight and saw GI. Had a ERCP and stent placed. Was found to have choledocholithiasis and started on Cipro Flagyl. Was discharged on 06/14 with biopsies of the mass pending. She was supposed to follow-up with GI tomorrow. She states last night she had worsening abdominal pain in her epigastric and periumbilical region. She reports a dry cough as well that is new. She endorses nausea with no vomiting. Denies any fever, chills, sore throat, chest pain, shortness of breath, dysuria or hematuria. Denies any diarrhea. Patient states she has tramadol at home but did not take it. [facility] Medical History Post-menopausal Wears glasses Anxiety Arthritis Easy bruising Migraine headache Shortness of breath on exertion Smoker History of edema History of pain when walking Home Medications ?Medication ?Instructions ?Recorded ?Last Taken ?Type cholecalciferol (vitamin D3) 25 25 mcg PO DAILY 08/29/24 09/24/24 History mcg (1,000 unit) capsule (Vitamin D3) diclofenac sodium 75 mg 75 mg PO BID 08/29/24 09/20/24 History tablet,delayed release loratadine 10 mg capsule 10 mg PO DAILY 08/29/24 09/20/24 History melatonin 3 mg capsule 3 mg PO QHS 08/29/24 Unknown History sumatriptan succinate 50 mg tablet 50 mg PO PRN PRN migraine headache 08/29/24 Unknown History ciprofloxacin HCl 500 mg tablet 500 mg PO BID #20 tabs 06/15/25 Unknown Rx (Cipro) metronidazole 500 mg tablet 500 mg PO Q8H #30 tabs 06/15/25 Unknown Rx omeprazole 20 mg capsule,delayed 40 mg PO DAILY 06/15/25 Unknown History release sucralfate 1 gram tablet 1 g PO 4X/DAY #180 tabs 06/15/25 Unknown Rx tramadol 50 mg tablet 50 mg PO Q8H PRN pain #30 tabs 06/15/25 Unknown Rx oxycodone-acetaminophen 5 mg-325 1 tab PO Q8H PRN pain 3 days #10 06/18/25 Unknown Rx mg tablet (Percocet) tabs Allergy/AdvReac Type Severity Reaction Status Date / Time No Known Allergies Allergy Verified 06/18/25 16:13 Surgical History Hx of total knee arthroplasty Hx of arthroscopic knee surgery History of endometrial ablation History of ankle surgery History of carpal tunnel surgery of right wrist Hx of foot surgery Hx of tubal ligation Social History Smoking Status: Light Smoker (<10/day) alcohol intake: current caffeine: Yes what type of physical activity do you participate in: other frequency: 1-2 times per week ROS ROS ED ROS Narrative See HPI EXAM Physical Exam Narrative Exam Narrative: Vital signs: Reviewed General: Alert and oriented x 3. No acute distress HEENT: Head is normocephalic and atraumatic, sinuses nontender, pupils equal round and reactive. Nares are patent. Oropharynx and throat exams normal. Neck: Supple without lymphadenopathy nontender Cardiovascular: Regular rate and rhythm, no murmurs. No rubs or gallops. Normal S1 and S2 Respiratory: Clear to auscultation bilaterally. No wheezes, rales, rhonchi Abdominal: Soft and tender to palpation in the periumbilical, epigastric and right upper quadrants. Negative Goddard sign. Normal bowel sounds. No guarding or rebound. Nonsurgical abdomen Extremities: No tenderness. No bruising. Normal range of motion. Normal sensation. Skin: No rash or redness. Neurological: Cranial nerves II through XII are grossly intact. Normal strength and sensation. Normal cerebellar function The rest of the physical exam is unremarkable Const Vital Signs: 06/18/25 16:13 06/18/25 18:12 06/18/25 19:24 Temperature 96.3 F L 98.3 F Temperature Source Temporal Pulse Rate 64 56 L 56 L Respiratory Rate 16 18 16 Blood Pressure 125/71 H 120/67 125/64 H Blood Pressure Mean 89 84 84 Pulse Ox 100 100 99 Oxygen Delivery Method Room Air Room Air MDM MDM MDM Narrative Medical decision making narrative: Patient is a 54-year-old female presenting emergency department for worsening abdominal pain since last night as well as fatigue. Patient was seen and examined. Vitals are stable. Patient resting bed comfortably no acute distress. Differential includes but is not limited to: Stent obstruction, pancreatitis, colitis, URI, pneumonia given she was just hospitalized and has dry cough, electrolyte abnormality Patient given morphine and Zofran for symptomatic control. CBC with leukocytosis of 1.2, normal hemoglobin. CMP with improved transaminitis from prior. Normal total bilirubin. Normal lipase. Urinalysis with no evidence of infection. Urine negative. CT of the abdomen shows a stable suspicious 1.7 cm hypodense mass at the uncinate process of the pancreas. Similar dilation of the pancreatic duct. Decrease in biliary dilation status post the common bile duct stent placement. Small mesenteric and retroperitoneal lymph nodes. A gastrohepatic lymph node measures 8.5 mm. Gallbladder US shows the gallbladder is distended with sludge. No evidence of acute cholecystitis. A 1.9 x 1.5 x 1.7 cm hypoechoic mass at the pancreatic head. Mild biliary dilation. Chest x-ray reviewed by myself and shows no opacities, pneumothorax, widened mediastinum. Radiology read with no acute radiographic abnormalities. Viral swab negative. While workup was still being completed, nursing notified me that the patient was still having pain, Dilaudid was given. Discussed lab and imaging findings with patient and family at bedside. Explained that there is no new cause of her worsening abdominal pain. I recommended that she take the tramadol that she was prescribed for pain if she has a given this is what she was prescribed for. I also prescribed her a short 3-day course of Percocet if needed for pain control. She has follow-up with her chauffeur tomorrow to discuss the biopsy results and determine further plans. Patient's pain is well-controlled at time of discharge and she is able to tolerate p.o. Stable for outpatient management. Recommended she go to her appointment tomorrow and return at any time if she whelps any new or worsening symptoms. Patient agreeable to plan. Discharged home in stable condition. Clinical impression Pancreatic mass Transaminitis Abdominal pain Cough History & Record Review Discussion w/independent historian: Patient and Family Additional record(s) reviewed:: Prior inpatient record, Prior ED visit and Prior labs Lab Data Attestation: I reviewed the patient's lab results. Labs: Laboratory Results - last 24 hr 06/18/25 06/18/25 16:34 17:40 WBC 11.2 H RBC 4.63 Hgb 13.1 Hct 39.9 MCV 86.2 MCH 28.3 MCHC 32.8 RDW Std Deviation 48.1 H RDW Coeff of Morelia 15.7 H Plt Count 331 MPV 11.9 Immature Gran % (Auto) 0.700 Neut % (Auto) 63.1 Lymph % (Auto) 24.6 Owsley % (Auto) 7.6 Eos % (Auto) 3.1 Baso % (Auto) 0.9 Absolute Neuts (auto) 7.1 Absolute Lymphs (auto) 2.76 Nucleated RBC % 0 Sodium 143 Potassium 3.6 Chloride 106 Carbon Dioxide 24.4 Anion Gap 12 BUN 17 Creatinine 0.98 Estim Creat Clear Calc 63.91 Est GFR (MDRD) Non-Af 68 BUN/Creatinine Ratio 17.7 Glucose 100 H Calcium 9.3 Total Bilirubin 1.21 AST 108 H ALT 677 H Alkaline Phosphatase 492 H Total Protein 6.8 Albumin 4.0 Globulin 2.8 Albumin/Globulin Ratio 1.4 Lipase 29 Urine Color Yellow Urine Clarity Sl. Cloudy Urine pH 6.0 Ur Specific [place] 1.020 Urine Protein 30 H Urine Glucose (UA) Normal Urine Ketones 5 H Urine Occult Blood Negative Urine Nitrite Negative Urine Bilirubin Negative Urine Urobilinogen Normal Ur Leukocyte Esterase 25 H Urine RBC 0-5 SEEN Urine WBC 0-5 SEEN Ur Squamous Epith Cells 0-5 SEEN Urine Bacteria 0 SEEN Urine Mucus 0 SEEN Urine Test Negative Radiography Diagnostic Testing: Clinical Impression(s) from Imaging Studies Chest X-Ray 06/18/25 17:03 IMPRESSION: NO ACUTE FINDINGS. Reading Location: [id number] Gallbladder Ultrasound 06/18/25 17:04 IMPRESSION: The gallbladder is distended with sludge. No evidence of acute cholecystitis. A 1.9 x 1.5 x 1.7 cm hypoechoic mass at the pancreatic head. Mild biliary dilation. Please refer to separate CT abdomen and pelvis were further details. Reading Location: [id number] Abdomen/Pelvis CT 06/18/25 17:47 IMPRESSION: Stable suspicious 1.7 cm hypodense mass at the uncinate process of the pancreas. Similar dilation of the pancreatic duct. Decrease in biliary dilation status post the common bile duct stent placement. Small mesenteric and retroperitoneal lymph nodes. A gastrohepatic lymph node measures 8.5 mm. Reading Location: [facility] Discharge Plan Triage Chief Complaint: Fatigue ED Provider: Bertha Silva Dx/Rx/DC Orders Clinical Impression: Mass of head of pancreas, Abdominal pain, Transaminitis Instructions: Abdominal Pain, Medicine for Pain Prescriptions: New oxycodone-acetaminophen [Percocet] 5-325 mg tablet 1 tab PO Q8H PRN (Reason: pain) 3 Days Qty: 10 0RF No Action diclofenac sodium 75 mg tablet,delayed release (DR/EC) 75 mg PO BID cholecalciferol (vitamin D3) [Vitamin D3] 25 mcg (1,000 unit) capsule 25 mcg PO DAILY melatonin 3 mg capsule 3 mg PO QHS loratadine 10 mg capsule 10 mg PO DAILY sumatriptan succinate 50 mg tablet 50 mg PO PRN PRN (Reason: migraine headache) omeprazole 20 mg capsule,delayed release(DR/EC) 40 mg PO DAILY ciprofloxacin HCl [Cipro] 500 mg tablet 500 mg PO BID Qty: 20 0RF metronidazole 500 mg tablet 500 mg PO Q8H Qty: 30 0RF sucralfate 1 gram tablet 1 g PO 4X/DAY Qty: 180 0RF tramadol 50 mg tablet 50 mg PO Q8H PRN (Reason: pain) Qty: 30 0RF Primary Care Provider: Joshua Yuan Referrals: Joshua Yuan MD [Primary Care Provider] - Alma Rosa Jones PA [Med Staff - Adv Practice Prof] - 1 Day Activity Restrictions/Additional Instructions: Please follow-up at your GI appointment as planned tomorrow. I sent a prescription for Percocet if needed tomorrow if your tramadol does not work for your pain tonight. If you develop any new or worsening symptoms please return to the ED immediately including any worsening pain, nausea, vomiting, fevers. Your evaluation in the Emergency Department did not reveal any acute reason for admission. However, I want to emphasize that you may be early in the course of a disease process or illness even if it is not present. For this reason you should follow-up within 24 hours for reevaluation with either your primary care physician or if necessary back here in the Emergency Department. You should return to the Emergency Department immediately if your symptoms worsen or new symptoms develop. Print Language: Icelandic Disposition Disposition: Home, Self Care Discharge Date/Time: 06/18/25 19:36
[2025-06-18 17:18] LABS: Hematocrit 39.9 % (37-47); Hemoglobin 13.1 g/dL (12.0-15.0); Immature Granulocytes Count 0.080 X10^3/uL (0.0-0.0); Mean Corp Hgb Conc 32.8 g/dL (32-36); Mean Corpuscular Volume 86.2 fL (81-99); Mean Platelet Vol. 11.9 fl (6.2-12.0); NRBC Flagged by Analyzer 0 % (0-5); Platelet Count 331 K/mm3 (150-450); RBC Distribution Width CV 15.7 % (11.6-14.6); RBC Distribution Width SD 48.1 fl (35.1-43.9); Red Blood Count 4.63 M/mm3 (4.2-5.4); White Blood Count 11.2 K/mm3 (4.4-11.0)
[2025-06-18 17:43] LABS: Lipase 29 U/L (13-75)
--- NOTE | 2025-06-18 17:47 | CT_ITS ---
PROCEDURE: ABDOMEN/PELVIS W IV CONT ONLY 06/18/2025 REASON FOR EXAM: WORSENING ABD PAIN, RECENT CHOLEDOCHOLITHIASIS TECHNIQUE: Procedure Code: [id number] Modality: CT Procedure: ABDOMEN/PELVIS W IV CONT ONLY Coronal and Sagittal reconstruction series were provided. CONTRAST: Isovue 370 VOLUME: 98. ML One or more dose reduction techniques were used (e.g., Automated exposure control, adjustment of the mA and/or kV according to patient size, use of iterative reconstruction technique. RADIATION DOSE SUMMARY: CTDlvol: 19.51 mGy DLP: 1007. 62 mGycm COMPARISON: CT abdomen and pelvis 06/13/2025. FINDINGS: Lung bases: Clear. Liver: A 2.2 cm simple cyst in the left hepatic lobe. Gallbladder: Status post cholecystectomy. Common bile duct stent in place. Decrease in biliary dilation compared to CT scan 06/13/2025. Spleen: No splenomegaly. Pancreas: Stable suspicious 1.7 cm hypodense mass at the uncinate process of the pancreas. Similar dilation of the pancreatic duct. Adrenals: Unremarkable. Kidneys: No hydronephrosis. No nephrolithiasis. Bladder: Unremarkable. Reproductive Organs: Unremarkable. Bowel: No bowel obstruction. No bowel wall thickening. Appendix: Unremarkable. Lymph nodes: Small mesenteric and retroperitoneal lymph nodes. A gastrohepatic lymph node measures 8.5 mm. Vasculature: No aneurysm or atherosclerotic calcifications. Peritoneum / Retroperitoneum: No free air or free fluid. Bones: No acute bony abnormalities. CT/Abdomen/Pelvis W IV Cont ONLY IMPRESSION: Stable suspicious 1.7 cm hypodense mass at the uncinate process of the pancreas . Similar dilation of the pancreatic duct. Decrease in biliary dilation status post the common bile duct stent placement. Small mesenteric and retroperitoneal lymph nodes. A gastrohepatic lymph node m easures 8.5 mm. Reading Location: [facility]
[2025-06-18 17:48] LABS: Mucous, Urine 0 SEEN /hpf (<or=2+)
[2025-06-18 17:54] LABS: AST(SGOT) 108 U/L (<=31); Alanine Aminotransfer ALT/SGPT 677 U/L (<=34); Albumin, Serum 4.0 g/dL (3.5-5.0); Alkaline Phosphatase 492 U/L (35-104); Anion Gap 12 (5-15); BUN 17 mg/dL (4-19); BUN/Creat Ratio 17.7 RATIO (10-20); Calcium,Total 9.3 mg/dL (7.6-11.0); Carbon Dioxide 24.4 mmol/L (21.0-32.0); Chloride 106 mmol/L (98-108); Estimated Creatinine Clearance 63.91 ml/min (50-250); Globulin 2.8 g/dL (2.2-4.2); Glucose 100 mg/dL (70-99); Potassium 3.6 mmol/L (3.3-5.1)
[2025-06-18 18:12] VITALS: BP 120/67; PULSE 56; RESP 18; O2SAT 100
[2025-06-18 18:22] LABS: Internal QC Validated? YES +Cl - CLEAR BKGD; Pregnancy, Urine Negative Negative; Record Kit Lot#,Urine Preg 964736
[2025-06-18 18:30] LABS: Color, Urine Yellow (Yellow); Glucose, Dipstick Normal (Normal); Ketone-Dipstick 5 mg/dl (Negative); Leukocyte Esterase-Dipstick 25 /ul (Negative); Nitrite-Dipstick Negative (Negative); Occult Blood-Urine Negative /ul (Negative); Protein-Dipstick 30 mg/dl (Negative); Specific Gravity, Urine 1.020 (1.002-1.030); Urine Bilirubin Dipstick Negative (Negative)
[2025-06-18] MEDS: HYDROmorphone 0.5 MG/0.5 ML SYRINGE IV (18:52)
[2025-06-18 19:20] LABS: Red Blood Cells-Urine 0-5 SEEN /hpf (0-5); Squamous Epithelial Cells - UA 0-5 SEEN /hpf (5-10)
[2025-06-18 19:24] VITALS: BP 125/64; PULSE 56; RESP 16; TEMP 36.8; O2SAT 99
== END 2025-06-18 19:36 | disposition home or self-care (01) ==
PROVIDERS: Emergency Provider Student in an Organized Health Care Education/Training Program; PCP Family Medicine; Visit Provider Student in an Organized Health Care Education/Training Program
DX: K86.89 Other specified diseases of pancreas (principal); R53.83 Other fatigue; R74.01 Elevation of levels of liver transaminase levels; G43.909 Migraine, unspecified, not intractable, without status migrainosus; Z79.899 Other long term (current) drug therapy; Z96.659 Presence of unspecified artificial knee joint; F17.200 Nicotine dependence, unspecified, uncomplicated; R10.9 Unspecified abdominal pain
CPT/HCPCS: 71046; 74177; 76705; 80053; 81001; 81025; 83690; 85025; 87631; 93005; 96374; 96375; 99283; Q9967; A4216; J2405

== ENCOUNTER 2025-09-07 17:15 | Observation (INO) | payer OTHER, SELFPAY ==
[2025-09-07 17:09] VITALS: BMI 32.3
--- NOTE | 2025-09-07 17:15 | PCM.HP.STD ---
HPI - General General Date of Admission: 09/07/25 Date of Service: 09/07/25 Chief Complaint: Abdominal pain and worsening LFTs HPI Narrative CORIE HERNANDEZ, is a 55 F who presented to [facility] on 09/07/2025 as a transfer from [facility] for abdominal pain and worsening LFTs. Patient was recently diagnosed with pancreatic cancer at the end of June. She initially presented here on 06/13 with painless jaundice and weight loss and was found on imaging to have a pancreatic head mass. She had ERCP with stent placement at that time. Pathology that was indeterminant so she had a fine-needle aspirate biopsy of the pancreatic head done at [facility] on 06/26 that was positive for malignant cells consistent with ductal adenocarcinoma. She underwent 1 round of chemotherapy in early July but unfortunately had significant side effects, and shortly afterward she was found to have DVT/PE. I was unable to find records of this hospitalization. She was treated with Coumadin while in the hospital but opted to go home with hospice and was placed on low-dose Xarelto at that time. She had been active with home hospice since then. She was doing fairly well with pain control and p.o. intake until last Wednesday. Since then she has had minimal p.o. intake and has had significant pain and nausea with vomiting. They decided to go to the ED at [place] this morning and they did revoke hospice. Labs and imaging results from there are as follows. CBC?WBC 7.2, hemoglobin 15.5, platelets 299 BMP?sodium 143, potassium 3.1, chloride 100, CO2 29, BUN 11, creatinine 0.73, glucose 112 LFTs?T. bili 5.2, direct bili 4.5, AST 218, ALT 419, alk phos 810 Lipase normal UA normal CT chest abdomen pelvis: 1. Common bile duct and intrahepatic ductal dilatation despite presence of common bile duct stent. Findings suggest stent obstruction. 2. Gallbladder is distended. Trace amount of stranding versus fluid is adjacent to the gallbladder fundus. 3. Low-attenuation lesion in the left lobe of the liver, in a patient with a history of malignancy this is concerning for metastatic disease. Recommend correlation to priors to evaluate for change. 4. Pancreatic ductal dilatation pancreatic atrophy. Low-attenuation lesion at the pancreatic head. Correlate for site of reported pancreatic cancer. 5. Indeterminate right upper lobe pulmonary. Recommend comparison to prior to evaluate for interval change. Given presumed stent obstruction, patient was transferred here for further management. Notably, I discussed the patient with Dr. Wallace prior to transfer and he was agreeable to having the patient transfer here. I saw the patient at bedside shortly after she arrived here, and daughter were present. Patient was fatigued appearing and mildly uncomfortable appearing due to ongoing abdominal pain and nausea. She had been given doses of IV Dilaudid and IV Zofran shortly before I saw her with some improvement in pain and nausea. No other acute concerns currently. [facility] Medical History Post-menopausal Wears glasses Anxiety Arthritis Easy bruising Migraine headache Shortness of breath on exertion Smoker History of edema History of pain when walking Home Medications ?Medication ?Instructions ?Recorded ?Last Taken ?Type cholecalciferol (vitamin D3) 25 25 mcg PO DAILY 08/29/24 09/24/24 History mcg (1,000 unit) capsule (Vitamin D3) loratadine 10 mg capsule 10 mg PO DAILY 08/29/24 09/20/24 History melatonin 3 mg capsule 3 mg PO QHS 08/29/24 Unknown History sumatriptan succinate 50 mg tablet 50 mg PO PRN PRN migraine headache 08/29/24 Unknown History omeprazole 20 mg capsule,delayed 40 mg PO DAILY 06/15/25 Unknown History release sucralfate 1 gram tablet 1 g PO 4X/DAY #180 tabs 06/15/25 Unknown Rx B-complex with vitamin C 1 cap PO QDAY 06/19/25 Unknown History epacik-[id number] 2 cap PO BID #90 caps 06/19/25 Unknown Rx (pork)36,000-114,000-180k unit capsule,del rel (Creon) zoazey-[id number]-mygiukv(pork) 1 cap PO QAC #120 caps 06/21/25 Unknown Rx 40,000-126,000-168k unit capsule,del rel (Zenpep) Allergy/AdvReac Type Severity Reaction Status Date / Time No Known Allergies Allergy Verified 06/18/25 16:13 Family History (Updated 06/19/25 @ 13:10 by Winnie Preston) Mother Arthritis Thyroid disorder Father Cancer Grandfather Cancer CVA (cerebral vascular accident) Surgical History Hx of total knee arthroplasty Hx of arthroscopic knee surgery History of endometrial ablation History of ankle surgery History of carpal tunnel surgery of right wrist Hx of foot surgery Hx of tubal ligation Social History (Updated 06/19/25 @ 13:09 by Winnie Preston) Smoking Status: Light Smoker (<10/day) alcohol intake: never substance use type: does not use caffeine: Yes what type of physical activity do you participate in: other frequency: 1-2 times per week ROS Constitutional Constitutional: Reports fatigue and weakness; Denies chills or fever(s) Cardiovascular Cardiovascular: Denies chest pain Respiratory/Chest Respiratory/Chest: Denies shortness of breath at rest Gastrointestinal Gastrointestinal: Reports abdominal pain, nausea and vomiting; Denies constipation or diarrhea Genitourinary Genitourinary: Denies dysuria Musculoskeletal Musculoskeletal: Denies arthralgias, back pain or myalgias Neurologic Neurologic: Denies dizziness, focal weakness, headache(s), numbness or tingling Vital Signs Vital Signs Vital Signs: Weight Weight: 77.564 kg Body Mass Index (BMI) 32.3 Physical Exam Const alert, oriented x3 and no apparent distress Constitutional Narrative: Middle-age female, class I obesity, fatigued appearing, mildly uncomfortable appearing due to ongoing abdominal pain and nausea, otherwise laying back in bed and answering questions appropriately. General Appearance: cooperative HEENT normocephalic, head/scalp atraumatic, hearing grossly normal bilaterally, nasal mucous membranes and turbinates normal and moist oral mucous membranes Eyes PERRL, EOMs intact bilaterally and conjunctivae normal Neck full ROM Chest inspection of chest normal Resp normal respiratory effort, normal air movement, no use of accessory muscles and clear to auscultation bilaterally Cardio regular rate, regular rhythm, no murmurs and peripheral pulses 2+ throughout GI GI Narrative: Abdomen mildly tender to palpation diffusely, otherwise soft and nondistended. Back/Spine normal ROM Extremity normal to inspection, full ROM and no pedal edema Skin no rashes or lesions noted Psych mental status grossly normal Assessment & Plan Assessment/Plan (1) Abdominal pain: (2) Hyperbilirubinemia: (3) Transaminitis: PLAN: Plan Patient is a 55-year-old female who presented [facility] as a transfer from [facility] for abdominal pain and worsening LFTs. 1. Abdominal pain and worsening transaminases suspected secondary to pancreatic cancer with biliary stent obstruction ? [facility]. GI consulted. Case management consulted. See HPI for further details regarding recent history. In short, was diagnosed with pancreatic cancer and mid June and had biliary stent placement done at that time. Underwent 1 round of chemotherapy with significant side effects and DVT/PE as below, so she and family decided to pursue home hospice. Importantly, patient did revoke hospice care on this admission. Patient will be n.p.o. at midnight with plan for ERCP with replacement of stent tomorrow. Pain control with morphine extended release 30 mg twice daily, oxycodone 5 mg every 4 hours as needed and IV Dilaudid 0.5 mg every 3 hours as needed. Follow-up a.m. labs. 2. Hypokalemia ? Potassium 3.1 at outside hospital and was replaced there. Follow-up a.m. potassium, magnesium and phosphorus levels. 3. Recent DVT/PE ? Patient diagnosed with DVT/PE in mid July. Was treated with therapeutic Coumadin while hospitalized but decided on home hospice care and was transitioned to low-dose Xarelto. Stable on room air at rest on admission and has had no recurrence of shortness of breath or chest pain with exertion. Continue low-dose Xarelto. DVT prophylaxis: Low-dose Xarelto CODE STATUS: DNR-CCA, DNI Expected disposition: Home, TBD Total clinical time spent by myself addressing the patient's medical issues, reviewing all the data, and collaborating with patient's care team: 77 minutes. Charges/Coding Visit Charges Inpatient E&M: 60248 Init Hosp L3
--- OUTSIDE RECORDS SUMMARY | 2025-09-07 17:29 | XMS RPT_ITS | CCD ---
Author Organization [facility] CliniSypr Care Team Providers Care Wet Washer Machine Name Role Phone DENNY DAVIS DO Admitting Unavailable DENNY DAVIS DO Attending Unavailable DENNY DAVIS DO Primary Care Unavailable JOSHUA WHITLOCK Consulting Unavailable JOSHUA WHITLOCK Referring Unavailable PROVIDER, UNKNOWN Consulting Unavailable PROVIDER, UNKNOWN Consulting Unavailable PROVIDER, UNKNOWN Consulting Unavailable Kwabena GALLEGOS, Joshua Allison Unavailable [place] generator operator, . . Unavailable Anuj CAICEDO, Dr. Renee Unavailable [facility], . [facility] office Unavailable Vincenzo GALLEGOS, Dr. Bullard ([place] [facility]) A Unavail able [facility] Unavailable Angela MODESTO, Liliane Unavailable Ankit DEAN, Ayesha Dangelo Unavailable Sung SALVADOR, Katya Yee Unavailable Unavailable Walter Shepherd MD Unavailable Edil DEAN, Keenan Yee Unavailable Grace Garcia MA Unavailable Unavailable Lili Downey LPN Unavailable Unavailable Damian CAMPBELL, Denise Velez Unavailable Unavaila Sabine Bergman PA-C Unavailable Naye Valdez Unavailable Heather Lauren LPN Unavailable Unavailab Lili Trujillo MA Unavailable Unavailable Soumya Michaels LPN Unavailable Unavailcaio e Unavailable Unavailable Dr. Joshua Whitlock Primary Care Provider Dr. Nelson Pacheco Attending Provider [phone] Itzel Ortega Referring Provider Jai MORALESN, Jenna Unavailable Unavailabl e Miguel A BANKING PARALEGAL, Flaikto Unavailable Unavailable Friend, Dr. Daily Unavailable [phone] Kwabena GALLEGOS, Dr. Lewis Primary Care Provider Ungsybil DO, Dr. Carrera Emergency Provider [phone] Harvinder DO, Dr. Mcguire Admit Provider Harvinder DO, Dr. Mcguire Attending Provider Harvinder DO, Dr. Mcguire Other Provider Friend DO, Dr. Daily Other Provider Jacinto HARVEY, Dr. Villela Attending Provider Jacinto DO, Dr. Villela Other Provider Friend DO, Dr. Daily Attending Provider Shira GALLEGOS, Dr. Stone Emergency Provider Unavailab dionne Whitlock MD, Dr. Lewis Referring Provider Alma Rosa Harris Attending Provider Manasa GALLEGOS, [facility] Primary Care Provider PRESTON ARMAS Admitting Unavailable PRESTON ARMAS Attending Unavailable MANASA LITCHFIELDANATOLIY Primary Care Unavailable Friend, Killian Consulting Unavailable [facility], Joshua Primary Care Unavailable Mostspike Maynor Admitting Unavailable Chadwick Caseyyn Attending Unavailable Harvinder Maynor Consulting Unavailable Friend, Killian Consulting Unavailable Brown, Joshua Primary Care Unavailable Mostspike, Maynor Admitting Unavailable Jacinto Tika Attending Unavailable Mostspike, Maynor Consulting Unavailable Jacinto, Tika Consulting Unavailable Alma Rosa Jones Attending Unavailable Brown, Joshua Referring Unavailable Brown, Joshua Primary Care Unavailable Itzel Perez Attending Unavailable Brown, Joshua Primary Care Unavailable Rudy Sullivan Referring Unavailable Alma Rosa Jones Referring Unavailable Alma Rosa Jones Attending Unavailable Brown, Joshua Primary Care Unavailable Brown, Joshua Primary Care Unavailable Bertha Silva Attending Unavailable Maynor Blanton Attending Unavailable Friend, Killian Attending Unavailable Jacinto, Tika Referring Unavailable Alma Rosa Jnoes Attending Unavailable Brown, Joshua Primary Care Unavailable Brown, Joshua Referring Unavailable Brown, Joshua Primary Care Unavailable Bari Sullivanen Referring Unavailable Rudy Sullivan Attending Unavailable Brown, Joshua Primary Care Unavailable Rudy Sullivan Referring Unavailable Rudy Sullivan Attending Unavailable ITZEL BORREGO Admitting Unavailable ITZEL BORREGO Attending Unavailable ITZEL BORREGO Primary Care Unavailable JOSHUA WHITLOCK Consulting Unavailable PROVIDER, UNKNOWN Consulting Unavailable PROVIDER, UNKNOWN Consulting Unavailable PROVIDER, UNKNOWN Consulting Unavailable Allergies Allergy Classification Reported Allergen(s) Allergy Type Date of Onset Reaction(s) Facility (1 source) diphenhydrAMINE Drug Allergy [facility] Repository Medications Current Medications Medication Drug Class(es) Dates Sig (Normalized) Sig (Original) acetaminophen 325 mg / oxyCODONE hydrochloride 5 mg oral tablet (4 sources) Opioid Agonist Start: 06-18-2025 oxyCODONE-acetamin ophen (Percocet) 5-325 MG tablet 1 tablet. 06/18/2025 Active Start: 06-18-2025 take 1 tablet by ryan th every eight hours as needed for pain Oxycodone-Acetaminophen (Percocet) 5-325 mg tablet Active 1 {tbl} PO Q8H as needed for pain 10 3 0 June 18, 2025 Mass of head of pancreas Other specified diseases of pancreas amylase 368721 unt / lipase 27082 unt / protease 910797 unt delayed release oral capsule (3 sources) Start: 06-19-2025 pancrelipase, Req-Pkhd-Rnlw, (Creon) 89158-848850 units capsule delayed-release particles capsule Wjovkn-Cmjiaqph-Uqudyeq (Creon) 36,000-114,000- 180,000 unit capsule,delayed release(DR/EC) Active 2 NMA PO TWICE A DAY 90 June 19, 2025 12:00am administer with meals and/or snacks 06/19/2025 Active Start: 06-19-2025 take 05473-102051 ca psules by mouth twice daily at mealtime Utjcpa-Idnpgzzl-Onokohw (Creon) 36,000-114,000- 180,000 unit capsule,delayed release(DR/EC) Active 2 NMA PO TWICE A DAY 90 June 19, 2025 12:00am administer with meals and/or snacks b complex vitamins capsule (2 sources) take 1 capsule by mouth once daily b complex vitamins capsule Take 1 capsule by mouth daily. Active B-Complex With Vitamin C capsule (1 source) Start: 06-19-2025 B-Complex With Vitamin C capsule Active 1 NMA PO daily June 19, 2025 12:00am cholecalciferol 0.025 mg oral capsule (20 sources) Vitamin D Start: 08-29-2024 take 1 capsule by mouth once daily Cholecalciferol (Vitamin D3) (Vitamin D3) 25 mcg (1,000 unit) capsule Active 25 ug PO DAILY August 29, 2024 1:00am take 1 capsule by mouth once akosua ly cholecalciferol (Vitamin D-3) 25 MCG (1000 UT) capsule Take 1,000 Units by mouth daily. Active Vitamin D3 ; akosua ly ciprofloxacin 500 mg oral tablet (5 sources) Quinolone Antimicrobial Start: 06-15-2025 ciprofloxacin (Cipro ) 500 MG tablet 500 mg. 06/15/2025 Active diclofenac sodium 75 mg delayed release oral tablet (9 sources) Nonsteroidal Anti-inflammatory Drug Start: 08-29-2024 diclofenac ([place] cele) 75 MG EC tablet Diclofenac Sodium 75 mg tablet,delayed release (DR/EC) Active 75 mg PO TWICE A DAY August 29, 2024 1:00am 08/29/2024 Active diclofenac potas sium ; 1 two times daily loratadine 10 mg oral capsule (20 sources) Start: 08-29-2024 Loratadine 10 MG capsule Loratadine 10 mg capsule Active 10 mg PO DAILY August 29, 2024 1:00am 08/29/2024 Active melatonin 3 mg oral capsule (6 sources) Start: 08-29-2024 Melatonin 3 MG capsule 3 mg. 08/29/2024 Active metoclopramide 10 mg oral tablet (2 sources) Dopamine-2 Receptor Antagonist metoclopramide (Reglan) 10 MG tablet Take 10 mg by mouth. Active metroNIDAZOLE 500 mg oral tablet (5 sources) Nitroimidazole Antimicrobial Start: 06-15-2025 metroNIDAZOLE (Flagyl) 500 MG tablet 500 mg. 06/15/2025 Active omeprazole 20 mg delayed release oral capsule (18 sources) Proton Pump Inhibitor Start: 06-15-2025 take 2 capsules by mouth once daily Omeprazole 20 mg capsule,delayed release(DR/EC) Active 40 mg PO DAILY June 15, 2025 7:55am Start: 06-13-2025 End: 06-15-2025 take 1 capsule by mouth once daily Omeprazole 20 mg capsule,delayed release(DR/EC) Discontinued 20 mg PO DAILY June 13, 2025 12:00am June 15, 2025 7:56am Start: 04-30-2025 omeprazole 40 mg capsule,delayed release [...] Serotonin-1b and Serotonin-1d Receptor Agonist Start: 06-26-2024 Sumatriptan Succinat e 50 mg tablet Active 50 mg PO NEEDED as needed for migraine headache August 29, 2024 1:00am Start: 03-14-2024 SUMAtriptan 50 mg tablet ; [...] Ordered: 14-Oct-2023 MD Joshua Whitlock Start: 14-Oct-2023 traMADol hydrochloride 75 mg extended release oral tablet (20 sources) Opioid Agonist Start: 06-15-2025 take 1 tablet by mouth three times daily as needed for pain Tramadol 75 mg tablet Active 75 mg PO THREE TIMES A DAY as needed for pain 21 0 June 15, 2025 12:18pm Start: 06-15-2025 take 1 tablet by ryan th every eight hours as needed for pain Tramadol 50 mg tablet Active 50 mg PO Q8H as needed for pain 30 0 June 15, 2025 12:00am Start: 08-29-2024 End: 06-13-2025 take 50-100 mg by mouth every six [...] Comment on above: Medication taken as needed. Completed/Discontinued Medications Medication Drug Class(es) Dates Sig [...] Quantity: 90 {Tablet_ER_24HR} Refills: 0 Ordered: 16-Jul-2010 Xin MODESTO Heather John Start: 14-Jul-2010 End: 16-Jul-2010 Status: Inactive Comment on above: Medication taken as needed. OARRS 11/17/16 amitriptyline hydrochloride 50 mg oral tablet [...] angela y aspirin 81 mg oral tablet (4 sources) Platelet Aggregation Inhibitor, Nonsteroidal Anti-inflammatory Drug Start: [...] Quantity: 3 {Tablet} Refills: 0 Ordered: 21-Nov-2015 MODESTO Lauren Heather John Start: 21-Nov-2015 End: 21-Nov-2015 Status: [...] Quantity: 30 {Capsule} Refills: 0 Ordered: 14-Oct-2022 MODESTO Lauren Heather John Start: 14-Oct-2022 End: 25-Oct-2023 Status: [...] capsule (20 sources) Cephalosporin Antibacterial Start: 11-21-19 16 End: 01-15-20 16 take 2 capsules by [...] Inactive Start: 06-30-2022 take 1 tablet by ryan once daily Drospirenone-Ethinyl Estradiol 3-0.03 MG Oral Tablet ; 1 (one) Tablet qd for 0 days Quantity: 60 {Tablet} Refills: 5 Ordered: 30-Jun-2022 PHIL Mcleod Start: 30-Jun-2022 Estrogens, Conjugated ([facility]) / medroxyPROGESTERone (20 sources) Progestin, Estrogen Start: [...] Whitlock Start: 26-Jul-2013 End: 02-Aug-2013 Status: Inactive 1 ml HYDROmorphone hydrochloride 1 mg/ml cartridge (4 sources) Opioid Agonist Start: 06-26-2025 End: 06-26-2025 take 0.5 mg by mouth every hour as needed for pain 0.5 mg, IntraVENous, PRN, severe pain (7-10), moderate pain (4-6), Starting on Wed06/26/25 at 1126, Recovery (only), If oral and injectable narcotics ordered, use oral first and only use injectable if oral is ineffective or cannot take oral. Do Not give oral and injectable within 1 hour of each other unless specifically ordered. ketoconazole 20 mg/ml topical cream (20 sources) [...] oral tablet (20 sources) Muscle Relaxant Start: End: take 1 tablet by mouth three times daily Robaxin-750 750 MG Oral Tablet ; 1 (one) Tablet tid for 0 days Quantity: 15 {Tablet} Refills: 0 Ordered: 20-Dec-2020 SHANNAN Salgado Start: 07-Feb-2020 End: 20-Dec-2020 Status: Inactive naproxen 500 mg oral tablet (20 sources) Nonsteroidal Anti-inflammatory Drug Start: End: take 1 tablet by mouth twice daily as needed NAPROXEN, 500MG (Oral Tablet) ; 1 (one) Tablet Tablet bid prn for 0 days Quantity: 60 {Tablet} Refills: 3 Ordered: 15-Mar-2015 Start: 07-Jun-2014 End: 15-Mar-2015 Status: Inactive 2 ml ondansetron 2 mg/ml injection (2 sources) Serotonin-3 Receptor Antagonist Start: 025 End: 025 4 mg, IntraVENous, Once PRN, nausea, vomiting, Starting on Wed06/26/25 at 1004, For 1 dose, Preprocedure PARoxetine hydrochloride 20 mg oral tablet (20 sources) Serotonin Reuptake Inhibitor Start: 013 End: 014 take 1 tablet by mouth once daily PAROXETINE HCL, 20MG (Oral Tablet) ; 1 Tablet qd for 0 days Quantity: 30 {Tablet} Refills: 5 Ordered: 30-Oct-2013 MD Joshua Whitlock Start: 26-Jul-2013 End: 30-Oct-2013 Status: Inactive predniSONE 20 mg oral tablet (20 sources) Start: 016 End: 017 take 3 tablets by mouth once daily, [...] days thenTake 1/2tab qd for 4 days. 5 ml sodium chloride 9 mg/ml injection (12 sources) Start: 025 End: 10 mL, IntraVENous, Every 12 hours scheduled (2 times per day), First dose on Wed06/26/25 at 1015, Preprocedure Start: 06-26-2025 End: 06-26-2025 take 100 mL intravenously every hour as needed, then take 20 mL intravenously every hour as needed 5-250 mL/hr, IntraVENous, PRN, if patient receiving piggyback infusions and maintenance fluids are not ordered OR KVO fluids to protect IV site / prevent frequent line interruptions/ long duration, Starting on Wed06/26/25 at 1004, Preprocedure, For piggyback infusion, administer at same rate as piggyback for a total of 25 mL. Enter 25 mL into dose field and piggyback rate into rate field of order. If piggyback is infusing at a rate less than 100 mL/hr, enter 25 mL into dose field and 100 mL/hr into rate field of order. For KVO fluids, enter rate of 20 mL/hr or less into rate field of order. Start: 06-26-2025 End: 06-26-2025 take 10 mL intravenously once as needed 10 mL, IntraVENous, PRN, line care, Starting on Wed06/26/25 at 1004, Preprocedure, After every IV line use sucralfate 1000 mg oral tablet (20 sources) Aluminum Complex Start: 06-13-2025 End: 06-15-2025 take 1 tablet by mouth four times daily Sucralfate 1 gram tablet Discontinued 1 g PO 4 TIMES DAILY 180 0 June 15, 2025 12:18pm June 15, 2025 12:23pm Start: 02-07-2025 End: 03-18-2025 Carafate 1 gram tablet ; 1 ( one) tablet AC and HS for 10 days Quantity: 40 {Tablet} Refills: 0 Ordered: 08-Mar-2025 MD Joshua Whitlock Start: 08-Mar-2025 End: 18-Mar-2025 Status: Inactive Turmeric extract (4 sources) Start: 08-29-2024 End: 06-13-2025 take 1 capsule [...] Problem Date Documented Date Episodic/Chronic Abdominal pain (9 sources) Abdominal pain; Translations: [Unspecified abdominal pain] Onset: 07-02-2025 06-13-2025 Episodic Acute bronchitis (20 sources) Acute bronchitis; Translations: [Acute bronchitis, unspecified] 11-21-2015 Episodic Anxiety disorders (20 sources) Generalized anxiety disorder; Translations: [Generalized anxiety disorder] 04-02-2023 Chronic Biliary tract disease (8 sources) Obstruction of biliary tree; Translations: [Obstruction of bile duct] Onset: 07-02-2025 06-13-2025 Chronic Chronic obstructive pulmonary disease and bronchiectasis (20 sources) Bronchitis; Translations: [Bronchitis, not specified as acute or chronic] 02-07-2020 Episodic Esophageal disorders (20 sources) Gastroesophageal reflux disease; Translations: [Gastro-esophageal reflux disease without esophagitis] Onset: 06-19-2025 02-07-2025 Chronic Headache; including migraine (20 sources) [...] unspecified ankle, initial encounter] 02-07-2020 Episodic Other liver diseases (6 sources) Enzyme level - finding; Translations: [Elevated transaminase measurement] 06-14-2025 Episodic Other liver diseases (6 sources) Jaundice; Translations: [Unspecified jaundice] 06-14-2025 Episodic Other liver diseases (1 source) Unspecified jaundice; Translations: [Unspecified jaundice] Onset: 06-18-2025 Episodic Other lower respiratory disease (20 sources) Cough; Translations: [Cough] 04-02-2023 Episodic Other nervous system disorders (20 sources) Ulnar neuropathy; Translations: [Lesion of ulnar nerve, unspecified upper limb] 12-29-2012 Chronic Other nutritional; endocrine; and metabolic disorders (20 sources) Obesity; Translations: [Obesity, unspecified] 04-07-2022 Chronic Other nutritional; endocrine; and metabolic disorders (6 sources) Hyperbilirubinemia; Translations: [Other disorders of bilirubin metabolism] 06-14-2025 Chronic Other nutritional; endocrine; and metabolic disorders (1 source) Other disorders of bilirubin metabolism; Translations: [Other disorders of bilirubin metabolism] Onset: 06-18-2025 Chronic Other screening for suspected conditions (not [...] unspecified] 09-26-2010 Episodic Pancreatic disorders (not diabetes) (13 sources) Mass of pancreas; Translations: [Other specified diseases of pancreas] Onset: 06-18-2025 06-13-2025 Episodic Residual codes; unclassified (20 sources) [...] total knee). Date of procedure: (07/26/24) Surgeon: (Nate) and Location of procedure: ([facility]) Previous problems include a reaction to general anesthesia (vomiting). Prosthetics include eye glasses. 08-11-2024 Unclassified (17 sources) [ADDITIONAL REASON] Well adult female - The patient feels well with no complaints. The patient has a balanced diet. The patient exercises none (active). The patient sleeps 7 hours per night. Note for Well adult female: reviewed by [facility] 08-11-2024 Unclassified (9 sources) Well adult female - The patient feels well with no complaints. The patient has a balanced diet. The patient exercises none (active). The patient sleeps 7 hours per night. Note for Well adult female: reviewed by [facility] 08-11-2024 Unclassified (9 sources) [ADDITIONAL REASON] Pre-operative clearance - Surgical procedure(s) planned: other (left total knee). Date of procedure: (07/26/24) Surgeon: (Nate) and Location of procedure: ([facility]) Previous problems include a reaction to [...] at this time reviewed by [facility] 05-28-2025 Unclassified (3 sources) As needed Unclassified (1 source) Elevation of levels of liver transaminase levels; Translations: [Elevation of levels of liver transaminase levels] Onset: 06-18-2025 Past or Other Problems Problem Classification Problem [...] Menopause: Has been gaining weight. reviewed by [facility] 12-24-2020 Unclassified (20 sources) Skin lesion - [...] welts on her upper chest. reviewed by [facility] 12-20-2020 Unclassified (20 sources) Follow up consultation - The patient is here to follow-up after Emergency Room/Urgent Care ([facility] with laceration to the distal volar right [...] but never completely cleared up. reviewed by [facility] 01-15-2016 Unclassified (20 sources) Cold Symptoms - [...] Surgeon: (Harinder Rodgers) and Location of procedure: ([facility]) There have been no problems with general anesthesia or blood/blood products. Prosthetics include eye glasses. Note for Pre-operative clearance: reviewed by [facility] 03-15-2015 Unclassified (20 sources) Eye Symptoms - The onset of the eye symptoms has been acute and has been occurring in an increasing pattern for months. The course has been gradually worsening. The eye symptoms are described as moderate and involve the left eye. The symptoms are described as pain and swelling. Note for Eye symptoms: reviewed by [facility] 12-11-2014 Unclassified (20 sources) Preoperative Clearance - Date of procedure: (08-10-13) Surgeon: (Dr Lawrence) and Location of procedure: ([facility]) There have been no problems with general [...] Note for Upper respiratory infection: reviewed by [facility] 02-28-2013 Unclassified (20 sources) Cold Symptoms - [...] Note for Upper respiratory infection: reviewed by [facility] 06-27-2012 Unclassified (20 sources) Cold Symptoms - [...] individual with similar symptoms (works at a [employer] so is exposed to numerous things). Medical [...] Surgeon: (Dr Saenz) and Location of procedure: ([facility] There have been no problems with general anesthesia or blood/blood products. Prosthetics include eye glasses. Note for Pre-operative clearance: reviewed by [facility] 10-25-2023 Unclassified (17 sources) Cold Symptoms - Symptoms include nasal congestion, runny nose and facial pain, but do not include fever or headache. The onset was 1 week(s) ago. The symptoms occur constantly. The patient describes this as mild and unchanged. Current treatment includes non-prescription cold medication. Note for Upper respiratory infection: reviewed by [facility] 09-13-2024 Unclassified (10 sources) Abdominal pain - [...] Test Name Value Interpretation Reference Range Facility OPERATIVE PROCEDURESon 07-06 OPERATIVE PROCEDURES [facility] OPERATIVE REPORT NAME ACCOUNT SEX AGE ADMIT DISCHARGE PT MED. RECORD# NUMBER DATE DATE TYPE MARY [id number] F 54 07/04/25 07/04/25 2 CORIE Velez [id number] ROOM: [facility] DATE OF : 1970 DICTATING PHYSICIAN: Itzel Borrego DATE OF SURGERY: July 04, 2025 SURGEON: Itzel Borrego MD MARINE GEOLOGIST: Steve Javier CSA ANESTHESIOLOGIST: Richi Miller CRNA ANESTHETIC: General endotracheal with 1% lidocaine and 0.5% Marcaine without epinephrine locally. PREOPERATIVE DIAGNOSES: (1) Pancreatic cancer, metastatic to local regional lymph nodes. (2) Need for definitive central venous access. POSTOPERATIVE DIAGNOSES: (1) Pancreatic cancer, metastatic to local regional lymph nodes. (2) Need for definitive central venous access. OPERATION PERFORMED: Placement of left subclavian Port-A-Cath. COMPLICATIONS: None. ESTIMATED BLOOD LOSS: 4 mL. SPECIMENS: None. INDICATIONS: The patient is a 54-year-old female recently diagnosed with pancreatic cancer. She was referred for placement of a Port-A-Cath so that she may receive neoadjuvant chemotherapy. DESCRIPTION OF OPERATION: Following the initiation of general endotracheal anesthesia, the patient was sterilely prepped and draped in the usual sterile supine position with a shoulder bump along the axis of the spine. Both arms were tucked. The patient did receive preoperative Levaquin. Infraclavicular anesthesia was then applied using 1% lidocaine and 0.5% Marcaine without epinephrine locally. The subclavian vein was then cannulated and the guidewire advanced. There was no evidence of ventricular ectopy. The position of the wire was then confirmed Page 1 of 2 CORIE LUGO Operative Report CORIE LUGO : 1970 fluoroscopically. A small incision was made in the skin with an 11 blade scalpel. A dilator and obturator were passed over the wire under direct fluoroscopic vision. The wire and the dilator were then removed and the catheter fed into the obturator down to the atriocaval junction. Then using a peel-away technique the obturator was removed. At this point, additional 1% lidocaine and 0.5% Marcaine were used to anesthetize the proposed 3 cm incision pocket on her left chest. Electrocautery was then used to dissect down to the level of the pectoralis fascia. Blunt dissection was then used to create a port at that level. The port was checked and noted to fit nicely within the pocket. The catheter within the subclavian vein was then tunneled subcutaneously onto the chest, where it was attached to the port. It should be noted that prior to attaching the port to the catheter it was cut to length after confirming the tip in the superior vena cava. The catheter was attached to the port and the hub secured, clicking it into place. The port was then placed in the pocket, and the catheter was noted to have no kinking on fluoroscopic examination. Additionally, fluoroscopic assessment demonstrated normal position of the catheter in the superior vena cava, and there was no evidence of kinking along the entire length of the catheter. A Saba needle was then used to access the port. The port was easily aspirated and infused. The port was then flushed and hep-locked with heparin 100 u/mL times 2 mL. The port was then secured into place with 2-0 Prolene sutures at three points. The pocket was thoroughly irrigated with warm saline. The deep soft tissue was reapproximated using interrupted 2-0 Vicryl sutures. The dermis was reapproximated using interrupted 4-0 Vicryl sutures, and the skin was repaired using a running 5-0 Monocryl. All instrument, needle and sponge counts were correct x2. The wound was appropriately dressed and bandaged. The patient was then awakened, extubated, and taken to the PACU in good and stable condition. Postoperative chest x-ray was pending at the time of this dictation. Dictated By: Itzel Borrego MD 07/04/25 09:29 JOB #: [id number] Transcribed By: deloris 07/04/25 12:52 Electronically signed by: E-SIGN DR. BORREGO 07/06/25 11:54 Page 2 of 2 CORIE LUGO Operative Report Normal [facility] C-ARM USAGE 1 HOURon 025 C-ARM USAGE [address] ? [place] [id number] ? Patient: CORIE LUGO. Phone#: : [phone] Age: 54 Gender: F Pt. Type: Out Account: [id number] Location: [id number] Ordering: ITZEL BORREGO Exam Date: 07/04/2025/8:17 Family Phys: JOSHUA WHITLOCK Charge Code: [id number] Physician: [place] Order #: [id number] Dose#: 23.10 mGy PROCEDURE: C-ARM USEAGE 1 HR COMPARISON: None. INDICATIONS: Port placement. TOTAL DOSE: 23.10 mGy FINDINGS: IMAGES: BONES: Normal. No significant arthropathy or acute abnormality. SOFT TISSUES: Negative. No visible soft tissue swelling. EFFUSION: None visible. OTHER: Left subclavian port catheter is present. Tip terminates in the superior vena cava. CONCLUSION: 1. The left-sided port catheter is present terminating in the superior vena cava. Dictated by: Karla Rutledge MD on 07/04/2025 at 9:33 Approved by: Karla Rutledge MD on 07/04/2025 at 9:34 Normal [facility] CHEST 1 VIEWon 07-04-2025 CHEST [address] ? [place], [place] [address] ? Patient: CORIE LUGO Phone#: : 1970 Age: 54 Gender: F Pt. Type: Out Account: [id number] Location: [facility] Ordering: ITZEL BORREGO Exam Date: 07/04/2025/9:23 Family Phys: JOSHUA WHITLOCK Charge Code: 219875 Physician: [place] Order #: [id number] Dose#: PROCEDURE: X-RAY CHEST 1 VIEW COMPARISON: [facility], XR, CHEST 2 VIEWS, 09/07/2018, 9:31. INDICATIONS: Port placement. FINDINGS: LUNGS: Normal. No significant pulmonary parenchymal abnormalities. VASCULATURE: Normal. Unremarkable pulmonary vasculature. CARDIAC: Normal. No cardiac silhouette abnormality or cardiomegaly. MEDIASTINUM: Normal. No visible mass or adenopathy. PLEURA: Normal. No effusion or pleural thickening. BONES: Normal. No fracture or visible bony lesion. OTHER: Left port catheter is present terminating in the superior vena cava. CONCLUSION: 1. Left port catheter terminating in the superior vena cava. 2. There is no evidence of acute pulmonary abnormality. Dictated by: Karla Rutledge MD on 07/04/2025 at 9:52 Approved by: Karla Rutledge MD on 07/04/2025 at 9:53 Normal [facility] Nursing Noteon 06-26-2025 Nursing Note Pt report her pain i s 10/13. Ambulated to rest room with independent steady gait. Claudia Dunn, SHANNAN Normal [facility] Gastroenterology Visit Repor ton 06-19-2025 Gastroenterology Visit Report [facility] Gastroenterology [address] [place] [address] OFFICE VISIT Date of Service: 06/19/25 MR#: [id number] Acct: [id number] Name: CORIE LUGO DONOVAN Rep #: [id number] : 1970 Provider: SARKIS Marinelli Age/Sex: 54/F Location: [facility] Status: Signed Intake Vital Signs 06/14/25 12:25 06/18/25 16:13 Height 5 ft 2 in 5 ft 1 in Intake Visit Reasons: HOSP FU Gastroesophageal reflux disease (GERD) Chief Complaint: Pancreatic mass Allergies No Known Allergies Allergy (Verified 06/18/25 16:13) Medications ???Medication ???Instructions ???Recorded ???Confirmed ???Type cholecalciferol (vitamin D3) 25 25 mcg PO DAILY 08/29/24 06/19/25 History mcg (1,000 unit) capsule (Vitamin D3) diclofenac sodium 75 mg 75 mg PO BID 08/29/24 06/19/25 His tory tablet,delayed release loratadine 10 mg capsule 10 mg PO DAILY 08/29/24 06/19/25 H istory melatonin 3 mg capsule 3 mg PO QHS 08/29/24 06/19/25 Hist ory sumatriptan succinate 50 mg tablet 50 mg PO PRN PRN migraine headac he 08/29/24 06/19/25 History ciprofloxacin HCl 500 mg tablet 500 mg PO BID #20 tabs 06/15/25 Rx (Cipro) metronidazole 500 mg tablet 500 mg PO Q8H #30 tabs 06/15/25 Rx omeprazole 20 mg capsule,delayed 40 mg PO DAILY 06/15/25 06/19/25 H istory release sucralfate 1 gram tablet 1 g PO 4X/DAY #180 tabs 06/15/25 0 06/19/25 Rx tramadol 50 mg tablet 50 mg PO Q8H PRN pain #30 tabs 09/2706/19/25 Rx oxycodone-acetaminophen 5 mg-325 1 tab PO Q8H PRN pain 3 days #10 0 06/18/25 06/19/25 Rx mg tablet (Percocet) tabs B-complex with vitamin C 1 cap PO QDAY 06/19/25 06/19/25 Hi story skebuq-mijokxgr-wyfxles 2 cap PO BID #90 caps 06/19/25 Rx 36,000-114,000-180,000 unit capsule,delay rel (Creon) PFSH Medical History Post-menopausal Wears glasses Anxiety Arthritis Easy bruising Migraine headache Shortness of breath on exertion Smoker History of edema History of pain when walking Surgical History Hx of total knee arthroplasty Hx of arthroscopic knee surgery History of endometrial ablation History of ankle surgery History of carpal tunnel surgery of right wrist Hx of foot surgery Hx of tubal ligation Family History (Updated 06/19/25 @ 13:10 by Winnie Preston) Mother Arthritis Thyroid disorder Father Cancer Grandfather Cancer CVA (cerebral vascular accident) Social History (Updated 06/19/25 @ 13:09 by Winnie Preston) Smoking Status: Light Smoker (<10/day) alcohol intake: never substance use type: does not use caffeine: Yes what type of physical activity do you participate in: other frequency: 1-2 times per week HPI HPI Chief Complaint: Pancreatic mass Details: CORIE LUGO, is a 54 F who presents to the office today for [facility] admission 06.13.25 through 06.15.25 with abdominal pain and 30 pound weight loss over the last few months. Workup with a bilirubin of 5.65, AST 507, ALT 1069 alk phos 886. Normal lipase. CT of the abdomen showing dilated bile ducts and pancreatic head mass. Patient admitted for further management. GI consulted. Patient underwent ERCP with stent placement and biopsy of pancreatic mass. ERCP 06.14.25 severely narrowed lumen in the biliary tract visualized via spyglass. A single localized biliary stricture was found in the lower third of the main bile duct. The stricture was malignant appearing. The entire main bile duct was dilated secondary to stricture. Choledocholithiasis was found. Complete removal was accomplished by biliary sphincterotomy and balloon extraction. Biliary sphincterotomy was performed. The biliary tree was swept and pus was found. Cells for cytology obtained the lower third of the main duct. The lower third of the main duct was successfully dilated. 1 temporary stent was placed in the common bile duct. Labs; AFP wnl, CEA 8 H, CA 19-9 37 H OV 06.19.25 patient here today to review results from her hospitalization. Patient continues to have severe abdominal pain with eating. She is taking pain medication. ROS Const Constitutional: Positive for fatigue and headache(s); No fever(s) or weight change ENT ENT: Positive for headache(s); No difficulty swallowing Gastro GI: Positive for abdominal pain, heartburn, nausea/dyspepsia and other (jaundice); No belching, bloating, change in bowel habits, change in stool character, coffee ground emesis, constipation, cramping, diarrhea, difficulty swallowing, feeling full early, excessive flatus, incontinent of stools, Vomiting blood/hematemesis, Blood in stool, loose stools, Black,tarry stools, pain with swallowing o (more content not included)... Normal [facility] 12 Lead EKGon 06-18-2025 12 Lead EKG [facility] Cardiovascular Services [address] [place] [address] 12 Lead EKG 06/14/25 0556 MR#: [id number] Acct: [id number] Name: CORIE LUGO DONOVAN Rep #: [id number] : 1970 54 From: Itzel Perez MD Attending Dr: Status: DEP ER Ordering Dr: Bertha Sivla MD Date: 06/18/25 Location: ED Sex: F C Admitted: Test Reason : PRE-OP Blood Pressure : */* mmHG Vent. Rate : 57 BPM Atrial Rate : 57 BPM P-R Int : 138 ms QRS Dur : 78 ms QT Int : 430 ms P-R-T Axes : 51 3 18 degrees QTcB Int : 418 ms Sinus bradycardia Otherwise normal ECG When compared with ECG of 06-Sep-2024 07:53, No significant change was found Confirmed by Itzel Perez ([id number]), film or videotape editor ROSA WINTER ([id number]) on 06/19/2025 5:48:17 AM Referred By: Confirmed By: Itzel Perez 06/19/25 0548 Date Itzel Perez MD CC: Dr. Bertha Silva MD; Dr. Joshua Whitlock MD Signed [facility] Abdomen/Pelvis W IV Cont ONL Yon 06-18-2025 Abdomen/Pelvis W IV Cont ONLY [facility] Imaging Services [address] [place] [address] Abdomen/Pelvis W IV Cont ONLY MR#: [id number] Acct: [id number] Name: CORIE LUGO DONOVAN Rep #: [id number] : 1970 F 54 From: Henrry Watkins MD PCP: Dr. Joshua Whitlock MD Status: REG ER Study: Abdomen/Pelvis W IV Cont ONLY Date of Exam: Exam# [id number] Ordering Dr: Bertha Silva MD PROCEDURE: ABDOMEN/PELVIS W IV CONT ONLY 06/18/2025 REASON FOR EXAM: WORSENING ABD PAIN, RECENT CHOLEDOCHOLITHIASIS TECHNIQUE: Procedure Code: [id number] Modality: CT Procedure: ABDOMEN/PELVIS W IV CONT ONLY Coronal and Sagittal reconstruction series were provided. CONTRAST: Isovue 370 VOLUME: 98. ML One or more dose reduction techniques were used (e.g., Automated exposure control, adjustment of the mA and/or kV according to patient size, use of iterative reconstruction technique. RADIATION DOSE SUMMARY: CTDlvol: 19.51 mGy DLP: 1007. 62 mGycm COMPARISON: CT abdomen and pelvis 06/13/2025. FINDINGS: Lung bases: Clear. Liver: A 2.2 cm simple cyst in the left hepatic lobe. Gallbladder: Status post cholecystectomy. Common bile duct stent in place. Decrease in biliary dilation compared to CT scan 06/13/2025. Spleen: No splenomegaly. Pancreas: Stable suspicious 1.7 cm hypodense mass at the uncinate process of the pancreas. Similar dilation of the pancreatic duct. Adrenals: Unremarkable. Kidneys: No hydronephrosis. No nephrolithiasis. Bladder: Unremarkable. Reproductive Organs: Unremarkable. Bowel: No bowel obstruction. No bowel wall thickening. Appendix: Unremarkable. Lymph nodes: Small mesenteric and retroperitoneal lymph nodes. A gastrohepatic lymph node measures 8.5 mm. Vasculature: No aneurysm or atherosclerotic calcifications. Peritoneum / Retroperitoneum: No free air or free fluid. Bones: No acute bony abnormalities. CT/Abdomen/Pelvis W IV Cont ONLY IMPRESSION: Stable suspicious 1.7 cm hypodense mass at the uncinate process of the pancreas. Similar dilation of the pancreatic duct. Decrease in biliary dilation status post the common bile duct stent placement. Small mesenteric and retroperitoneal lymph nodes. A gastrohepatic lymph node measures 8.5 mm. Reading Location: [facility] CC: Dr. Bertha Silva MD; Dr. Joshua Whitlock MD Cargo Service Supervisor: Signed Normal [facility] Absolute lymphocyte countOrd ered By: Bertha Silva on 06-18-2025 Lymphocytes Auto (Unsp spec) [#/Vol] 2.76 10*3/uL 0.83-4.51 [facility] Absolute neutrophil countOrd ered By: Bertha Walkerer on 06-18-2025 Neutrophils (Bld) [#/Vol] 7.1 10*3/uL 2.0-7.7 [facility] Anion gap in Serum or Plasma Ordered By: Bertha Silva on 06-18-2025 Anion gap [Moles/Vol] 12 mmol/L 02-15 [facility] Automated lymphocyte count a s percentage of total leukocytesOrdered By: Bertha Silva on 06-18-2025 Lymphocytes/100 WBC Auto (Unsp spec) 24.6 % - [facility] BUN/creatinine ratioOrdered By: Bertha Silva on 06-18-2025 Urea nitrogen/Creatinine [Mass ratio] 17.7 mg/mg - [facility] Basophil percentageOrdered B y: Bertha Silva on 06-18-2025 Basophils/100 WBC (Bld) 0.9 % 0-1 [facility] Bilirubin Test strip Ql (U)O rdered By: Bertha Silva on 06-18-2025 Bilirubin Ql (U) Negative Negative [facility] Bilirubin, totalOrdered By: Berthamian Silva on 06-18-2025 Bilirubin [Mass/Vol] 1.21 mg/dL 0.00-1.30 [facility] CBC W/Diff, Automatedon 06-04 Absolute Lymph 2.76 X10 3/uL Normal 0.83-4.51 [facility] Comment on above: Performed By: #### L 100.0100, L501.2450, L500.4050 #### [facility] Laboratory [address] [place], [address] Absolute Neut 7.1 X10 3/uL Normal 2.0-7.7 [facility] Comment on above: Performed By: #### L 100.0100, L501.2450, L500.4050 #### [facility] [address] [place], [address] Basophils/100 WBC (Bld) 0.9 % Normal 0-1 [facility] Comment on above: Performed By: #### L 100.0100, L501.2450, L500.4050 #### [facility] [address] [place], [address] Eosinophils/100 WBC (Bld) 3.1 % Normal 0-5 [facility] Comment on above: Performed By: #### L 100.0100, L501.2450, L500.4050 #### [facility] [address] [place], [address] Erythrocyte distribution width (RBC) [Ratio] 15.7 % High 11.6-14.6 [facility] Comment on above: Performed By: #### L 100.0100, L501.2450, L500.4050 #### [facility] [address] [place], [address] Hematocrit (Bld) [Volume fraction] 39.9 % Normal 37-47 [facility] Comment on above: Performed By: #### L 100.0100, L501.2450, L500.4050 #### [facility] [address] [place], [address] Hemoglobin (Bld) [Mass/Vol] 13.1 g/dL Normal 12.0-15.0 [facility] Comment on above: Performed By: #### L 100.0100, L501.2450, L500.4050 #### [facility] [address] [place], [address] IG% 0.700 Normal 0.0-0.9 [facility] Comment on above: Result Comment: IG% - Immature Granulocytes (promyelocytes, myelocytes and metamyelocytes) > 1% indicates that a LEFT SHIFT is Present. Performed By: #### L 100.0100, L501.2450, L500.4050 #### [facility] [address] [place], [address] Lymphocytes/100 WBC (Bld) 24.6 % Normal 19-41 [facility] Comment on above: Performed By: #### L 100.0100, L501.2450, L500.4050 #### [facility] [address] [place], [address] MCH (RBC) [Entitic mass] 28.3 pg Normal 27.0-32.0 [facility] Comment on above: Performed By: #### L 100.0100, L501.2450, L500.4050 #### [facility] [address] [place], [address] MCHC (RBC) [Mass/Vol] 32.8 g/dL Normal 32-36 [facility] Comment on above: Performed By: #### L 100.0100, L501.2450, L500.4050 #### [facility] [address] [place], [address] MCV (RBC) [Entitic vol] 86.2 fL Normal 81-99 [facility] Comment on above: Performed By: #### L 100.0100, L501.2450, L500.4050 #### [facility] [address] [place], [address] Monocytes/100 WBC (Bld) 7.6 % Normal 0-10 [facility] Comment on above: Performed By: #### L 100.0100, L501.2450, L500.4050 #### [facility] [address] [place], [address] Neutrophils/100 WBC (Bld) 63.1 % Normal 47-70 [facility] Comment on above: Performed By: #### L 100.0100, L501.2450, L500.4050 #### [facility] [address] [place], [address] Nucleated RBC (Bld) [#/Vol] 0 10*3/uL Normal 0-5 [facility] Comment on above: Performed By: #### L 100.0100, L501.2450, L500.4050 #### [facility] [address] [place], [address] Platelet mean volume (Bld) [Entitic vol] 11.9 fL Normal 6.2-12.0 [facility] Comment on above: Performed By: #### L 100.0100, L501.2450, L500.4050 #### [facility] [address] [place], [address] Platelets (Bld) [#/Vol] 331 10*3/uL Normal 150-450 [facility] Comment on above: Performed By: #### L 100.0100, L501.2450, L500.4050 #### [facility] [address] [place], [address] RBC (Bld) [#/Vol] 4.63 10*6/uL Normal 4.2-5.4 [facility] Comment on above: Performed By: #### L 100.0100, L501.2450, L500.4050 #### [facility] [address] [place], [address] RDW SD 48.1 fl High 35.1-43.9 [facility] Comment on above: Performed By: #### L 100.0100, L501.2450, L500.4050 #### [facility] [address] [place], [address] WBC (Bld) [#/Vol] 11.2 10*3/uL High 4.4-11.0 [facility] Comment on above: Performed By: #### L 100.0100, L501.2450, L500.4050 #### [facility] [address] [place], [address] Carbon dioxide, total [Moles /volume] in Central venous bloodOrdered By: Bertha Silva on 06-18-2025 CO2 [Moles/Vol] 24.4 mmol/L 21.0-32.0 [facility] Chest PA and Lateralon 06-18 Chest PA and Lateral [facility] Imaging Services [address] [place], [place] [address] Chest PA and Lateral MR#: [id number] Acct: [id number] Name: CORIE LUGO Rep #: [id number] : 1970 F 54 From: Yovani Harris MD PCP: Dr. Joshua Whitlock MD Status: REG ER Study: Chest PA and Lateral Date of Exam: 06/18/25 Exam# [id number] Ordering Dr: Bertha Silva MD PROCEDURE: CHEST PA AND LATERAL 06/18/2025 REASON FOR EXAM: COUGH, RECENT HOSPITALIZATION TECHNIQUE: Procedure Code: RADCXR Modality: DX Procedure: CHEST PA AND LATERAL COMPARISON: 06/16/2021. FINDINGS: The heart is normal in size. The lungs are clear. No acute osseous abnormalities. RAD/Chest PA and Lateral IMPRESSION: NO ACUTE FINDINGS. Reading Location: [facility] CC: Dr. Bertha Silva MD; Dr. Joshua Whitlock MD Cargo Service Supervisor: Signed Normal [facility] Chloride assayOrdered By: Ross Silva on 06-18-2025 Chloride [Moles/Vol] 106 mmol/L 98-108 [facility] Comprehensive Metabolic Prof ilon 06-18-2025 Albumin [Mass/Vol] 4.0 g/dL Normal 3.5-5.0 [facility] Comment on above: Performed By: #### L 100.0100, L501.2450, L500.4050 #### [facility] Laboratory [address] [place], [place], [address] Albumin/Globulin [Mass ratio] 1.4 {ratio} Normal 0.9-2.4 [facility] Comment on above: Performed By: #### L 100.0100, L501.2450, L500.4050 #### [facility] [address] [place], [address] ALK PHOS 492 U/L High 35-104 [facility] Comment on above: Performed By: #### L 100.0100, L501.2450, L500.4050 #### [facility] [address] [place], [address] ALT [Catalytic activity/Vol] 677 U/L High <=34 [facility] Comment on above: Performed By: #### L 100.0100, L501.2450, L500.4050 #### [facility] [address] [place], [address] AST [Catalytic activity/Vol] 108 U/L High <=31 [facility] Comment on above: Performed By: #### L 100.0100, L501.2450, L500.4050 #### [facility] [address] [place], [address] Bilirubin [Mass/Vol] 1.21 mg/dL Normal 0.00-1.30 [facility] Comment on above: Performed By: #### L 100.0100, L501.2450, L500.4050 #### [facility] [address] [place], [address] BUN/CRE 17.7 RATIO Normal 10-20 [facility] Comment on above: Performed By: #### L 100.0100, L501.2450, L500.4050 #### [facility] [address] [place], [address] Calcium [Mass/Vol] 9.3 mg/dL Normal 7.6-11.0 [facility] Comment on above: Performed By: #### L 100.0100, L501.2450, L500.4050 #### [facility] [address] [place], [address] Chloride [Moles/Vol] 106 mmol/L Normal 98-108 [facility] Comment on above: Performed By: #### L 100.0100, L501.2450, L500.4050 #### [facility] [address] [place], [address] CO2 [Moles/Vol] 24.4 mmol/L Normal 21.0-32.0 [facility] Comment on above: Performed By: #### L 100.0100, L501.2450, L500.4050 #### [facility] [address] [place], [address] Creatinine [Mass/Vol] 0.98 mg/dL Normal 0.70-1.20 [facility] Comment on above: Performed By: #### L 100.0100, L501.2450, L500.4050 #### [facility] [address] [place], [address] ECRCL 63.91 ml/min Normal 50-250 [facility] Comment on above: Performed By: #### L 100.0100, L501.2450, L500.4050 #### [facility] [address] [place], [address] GAP 12 Normal 5-15 [facility] Comment on above: Performed By: #### L 100.0100, L501.2450, L500.4050 #### [facility] [address] [place], [address] GFR/1.73 sq M.predicted among non-blacks MDRD (S/P/Bld) [Vol rate/Area] 68 mL/min/{1.73_m2} Normal >60 [facility] Comment on above: Result Comment: mL/m in/1.73m2 CKD-EPI Creatinine Equation (2020) Performed By: #### L 100.0100, L501.2450, L500.4050 #### [facility] [address] [place], [address] Globulin (S) [Mass/Vol] 2.8 g/dL Normal 2.2-4.2 [facility] Comment on above: Performed By: #### L 100.0100, L501.2450, L500.4050 #### [facility] [address] [place], [address] Glucose [Mass/Vol] 100 mg/dL High 70-99 [facility] Comment on above: Performed By: #### L 100.0100, L501.2450, L500.4050 #### [facility] [address] [place], [address] Potassium [Moles/Vol] 3.6 mmol/L Normal 3.3-5.1 [facility] Comment on above: Performed By: #### L 100.0100, L501.2450, L500.4050 #### [facility] [address] [place], [address] Sodium [Moles/Vol] 143 mmol/L Normal 133-145 [facility] Comment on above: Performed By: #### L 100.0100, L501.2450, L500.4050 #### [facility] [address] [place], [address] T PROT 6.8 g/dL Normal 5.9-8.4 [facility] Comment on above: Performed By: #### L 100.0100, L501.2450, L500.4050 #### [facility] [address] [place], [address] Urea nitrogen [Mass/Vol] 17 mg/dL Normal 4-19 [facility] Comment on above: Performed By: #### L 100.0100, L501.2450, L500.4050 #### [facility] Laboratory [address] [place], [address] Emergency Department Summary on 06-18-2025 Emergency Department Summary [facility] Medical Records Department [address] [place] [address] Emergency Department Summary 06/18/25 MR#: [id number] Acct: [id number] Name: CORIE LUGO Rep #: [id number] : 1970 54 From: Bertha Silva MD PCP: Dr. Joshua Whitlock MD Status:DEP ER Location: ED HPI History of Present Illness Chief Complaint: Fatigue Narrative Narrative: Patient is a 54-year-old female presenting to the emergency department for worsening abdominal pain and fatigue that started last night. Patient was seen in the ER on 06/13 for abdominal pain and was diagnosed with a pancreatic head mass and dilated bile ducts. She was admitted overnight and saw GI. Had a ERCP and stent placed. Was found to have choledocholithiasis and started on Cipro Flagyl. Was discharged on 06/14 with biopsies of the mass pending. She was supposed to follow-up with GI tomorrow. She states last night she had worsening abdominal pain in her epigastric and periumbilical region. She reports a dry cough as well that is new. She endorses nausea with no vomiting. Denies any fever, chills, sore throat, chest pain, shortness of breath, dysuria or hematuria. Denies any diarrhea. Patient states she has tramadol at home but did not take it. [facility] Medical History Post-menopausal Wears glasses Anxiety Arthritis Easy bruising Migraine headache Shortness of breath on exertion Smoker History of edema History of pain when walking Home Medications ???Medication ???Instructions ???Recorded ???Last Taken ???Type cholecalciferol (vitamin D3) 25 25 mcg PO DAILY 08/29/24 09/24/24 History mcg (1,000 unit) capsule (Vitamin D3) diclofenac sodium 75 mg 75 mg PO BID 08/29/24 09/20/24 His tory tablet,delayed release loratadine 10 mg capsule 10 mg PO DAILY 11/26/24 12/18/24 H istory melatonin 3 mg capsule 3 mg PO QHS 08/29/24 Unknown Histo ry sumatriptan succinate 50 mg tablet 50 mg PO PRN PRN migraine headac he 08/29/24 Unknown History ciprofloxacin HCl 500 mg tablet 500 mg PO BID #20 tabs 06/15/25 Un known Rx (Cipro) metronidazole 500 mg tablet 500 mg PO Q8H #30 tabs 06/15/25 Un known Rx omeprazole 20 mg capsule,delayed 40 mg PO DAILY 06/15/25 Unknown Hi story release sucralfate 1 gram tablet 1 g PO 4X/DAY #180 tabs 06/15/25 U nknown Rx tramadol 50 mg tablet 50 mg PO Q8H PRN pain #30 tabs 09/27 Unknown Rx oxycodone-acetaminophen 5 mg-325 1 tab PO Q8H PRN pain 3 days #10 0 06/18/25 Unknown Rx mg tablet (Percocet) tabs Allergy/AdvReac Type Severity Reaction Status Date / Time No Known Allergies Allergy Verified 06/18/25 16:13 Surgical History Hx of total knee arthroplasty Hx of arthroscopic knee surgery History of endometrial ablation History of ankle surgery History of carpal tunnel surgery of right wrist Hx of foot surgery Hx of tubal ligation Social History Smoking Status: Light Smoker (<10/day) alcohol intake: current caffeine: Yes what type of physical activity do you participate in: other frequency: 1-2 times per week ROS ROS ED ROS Narrative See HPI EXAM Physical Exam Narrative Exam Narrative: Vital signs: Reviewed General: Alert and oriented x 3. No acute distress HEENT: Head is normocephalic and atraumatic, sinuses nontender, pupils equal round and reactive. Nares are patent. Oropharynx and throat exams normal. Neck: Supple without lymphadenopathy nontender Cardiovascular: Regular rate and rhythm, no murmurs. No rubs or gallops. Normal S1 and S2 Respiratory: Clear to auscultation bilaterally. No wheezes, rales, rhonchi Abdominal: Soft and tender to palpation in the periumbilical, epigastric and right upper quadrants. Negative Goddard sign. Normal bowel sounds. No guarding or rebound. Nonsurgical abdomen Extremities: No tenderness. No bruising. Normal range of motion. Normal sensation. Skin: No rash or redness. Neurological: Cranial nerves II through XII are grossly intact. Normal strength and sensation. Normal cerebellar function The rest of the physical exam is unremarkable Const Vital Signs: 06/18/25 16:13 06/18/25 18:12 06/18/25 19:24 Temperature 96.3 F L 98.3 F Temperature Source Temporal Pulse Rate 64 56 L 56 L Respiratory Rate 16 18 16 Blood Pressure 125/71 H 120/67 125/64 H Blood Pressure Mean 89 84 84 Pulse Ox 100 100 99 Oxygen Delivery Method Room Air Room Air MDM MDM MDM Narrative Medical decision making narrative: Patient is a 54-year-old female presenting emergency department for worsening abdominal pain since last night as well as fatigue. Patient was seen and examined. Vitals are stable. Pa (more content not included)... Normal [facility] Eosinophil percentageOrdered By: Bertha Silva on 06-18-2025 Eosinophils/100 WBC (Bld) 3.1 % 0-5 [facility] Erythrocyte distribution wid th ratioOrdered By: Bertha Silva on 06-18-2025 Erythrocyte distribution width (RBC) [Ratio] 15.7 % High 11.6-14.6 [facility] Erythrocyte distribution wid th standard deviationOrdered By: Bertha Silva on 06-18-2025 Erythrocyte distribution width (RBC) [Ratio] 48.1 fl High 35.1-43.9 [facility] Gallbladderon 06-18-2025 [facility] [address] [place], [place] [address] Gallbladder MR#: [id number] Acct: [id number] Name: CORIE LUGO DONOVAN Rep #: [id number] : 1970 F 54 From: Henrry Watkins MD PCP: Dr. Joshua Whitlock MD Status: REG ER Study: Gallbladder Date of Exam: 06/18/25 Exam# [id number] Ordering Dr: Bertha Silva MD PROCEDURE: GALLBLADDER 06/18/2025 REASON FOR EXAM: PAIN TECHNIQUE: Procedure Code: USGB Modality: US Procedure: GALLBLADDER COMPARISON: CT abdomen and pelvis from the same day 06/18/2025. FINDINGS: Liver: Echogenic suggestive of fatty infiltration. Gallbladder: The gallbladder is distended. No gallbladder wall thickening. No gallbladder wall thickening. No pericholecystic fluid. The technologist reported a negative Goddard sign. Common bile duct: Mild intra and extrahepatic biliary dilation. Pancreas: A 1.9 x 1.7 x 1.5 cm mass at the pancreatic head. US/Gallbladder IMPRESSION: The gallbladder is distended with sludge. No evidence of acute cholecystitis. A 1.9 x 1.5 x 1.7 cm hypoechoic mass at the pancreatic head. Mild biliary dilation. Please refer to separate CT abdomen and pelvis were further details. Reading Location: [facility] CC: Dr. Bertha Silva MD; Dr. Joshua Whitlock MD [employer]argo Service Supervisor: Signed Normal [facility] Glomerular filtration rate ( GFR) estimation/1.73 sq m using serum, plasma, or whole bOrdered By: Bertha Silva on 06-18-2025 GFR/1.73 sq M.predicted among non-blacks MDRD (S/P/Bld) [Vol rate/Area] 68 mL/min/{1.73_m2} >60 [facility] Comment on above: mL/min/1.73m2 CKD-EP I Creatinine Equation (2020) Hematocrit Auto (Bld) [Volum e fraction]Ordered By: Bertha Silva on 06-18-2025 Hematocrit (Bld) [Volume fraction] 39.9 % 37-47 [facility] Hemoglobin measurementOrdere d By: Bertha Silva on 06-18-2025 Hemoglobin (Bld) [Mass/Vol] 13.1 g/dL 12.0-15.0 [facility] Immature granulocytes/100 WB C Auto (Bld)Ordered By: Bertha Silva on 06-18-2025 Immature granulocytes/100 WBC (Bld) 0.700 % 0.0-0.9 [facility] Comment on above: IG% - Immature Granu locytes (promyelocytes, myelocytes and metamyelocytes) > 1% indicates that a LEFT SHIFT is Present. Influenza virus A and B and SARS-CoV-2 (COVID-19) and Respiratory syncytial virus RNAOrdered By: Bertha Silva on 06-18-2025 SARS-CoV-2 (COVID-19) RNA ZION+probe Ql (Unsp spec) [facility] Ketones Test strip Ql (U)Ord ered By: Bertha Silva on 06-18-2025 Ketones Ql (U) 5 mg/dl High Negative [facility] Laboratory - Chemistry and C hemistry - challengeOrdered By: Bertha Silva on 06-18-2025 AST [Catalytic activity/Vol] 108 U/L High <32 [facility] Lipaseon 06-18-2025 Lipase [Catalytic activity/Vol] 29 U/L Normal 13-75 [facility] Comment on above: Result Comment: Plea se note: LIPASE revised reference range effective 23. New Lipase methodology. Expected to produce lower values than the previous assay method. NEW Reference Range: 13 - 75 U/L Performed By: #### L 100.0100, L501.2450, L500.4050 #### [facility] [address] [place], [address] Lipase measurementOrdered By : Bertha Silva on 06-18-2025 Lipase [Catalytic activity/Vol] 29 U/L 13-75 [facility] Comment on above: Please note:LIPASE r evised reference range effective 23. New Lipase methodology. Expected to produce lower values than the previous assay method. NEW Reference Range: 13 - 75 U/L M100.678on 06-18-2025 M100.678 Pending SARS-CoV-2 (COVID 19) Negative INFLUENZA A Negative INFLUENZA B Negative RSV PCR Negative Normal [facility] Comment on above: Performed By: #### L 100.0100, M100.651 #### [facility] [address] [place], [address] MCV (mean corpuscular volume ) determinationOrdered By: Bertha Silva on 06-18-2025 MCV (RBC) [Entitic vol] 86.2 fL 81-99 [facility] Mean corpuscular hemoglobin (MCH) determinationOrdered By: Bertha Silva on 06-18-2025 MCH (RBC) [Entitic mass] 28.3 pg 27.0-32.0 [facility] Mean corpuscular hemoglobin concentration (MCHC) determinationOrdered By: Bertha Silva on 06-18-2025 MCHC (RBC) [Mass/Vol] 32.8 g/dL 32-36 [facility] Mean platelet volume determi nationOrdered By: Bertha Silva on 06-18-2025 Platelet mean volume (Bld) [Entitic vol] 11.9 fL 6.2-12.0 [facility] Microscopic analysis of urin e for red blood cells (RBC)Ordered By: Bertha Silva on 06-18-2025 Microscopic analysis of urine for red blood cells (RBC) 0-5 SEEN /hpf 0-5 [facility] Monocyte percentageOrdered B y: Bertha Silva on 06-18-2025 Monocytes/100 WBC (Bld) 7.6 % 0-10 [facility] Mucus LM Ql (Urine sed)Order ed By: Bertha Silva on 06-18-2025 Mucus Ql (Urine sed) 0 SEEN /hpf [facility] Neutrophil percentageOrdered By: Bertha Silva on 06-18-2025 Neutrophils/100 WBC (Bld) 63.1 % 47-70 [facility] Nitrite Test strip Ql (U)Ord ered By: Bertha Silva on 06-18-2025 Nitrite Ql (U) Negative Negative [facility] Nucleated red blood cell per centageOrdered By: Bertha Silva on 06-18-2025 Nucleated RBC/100 WBC (Bld) [Ratio] 0 % 0-5 [facility] Platelet countOrdered By: Ross Silva on 06-18-2025 Platelets (Bld) [#/Vol] 331 10*3/uL 150-450 [facility] Potassium measurement (mass/ volume)Ordered By: Bertha Silva on 06-18-2025 Potassium (Unsp spec) [Mass/Vol] 3.6 mmol/L 3.3-5.1 [facility] ,Urineon 06-18-2025 Beta HCG ( test) Ql (U) Negative Normal [facility] Comment on above: Result Comment: Very dilute urine specimens, as indicated by a low specific gravity, may not contain self pay representative levels of hCG. If is still suspected, a first morning urine specimen should be collected 48 hours later and tested. Performed By: #### L 100.0100, M100.651 #### [facility] [address] [place], [address] Protein Test strip Ql (U)Ord ered By: Bertha Silva on 06-18-2025 Protein Ql (U) 30 mg/dl High Negative [facility] RBC Auto (Bld) [#/Vol]Ordere d By: Bertha Silva on 06-18-2025 RBC (Bld) [#/Vol] 4.63 10*6/uL 4.2-5.4 [facility] Serum creatinine measurement (mass/volume)Ordered By: Bertha Silva on 06-18-2025 Creatinine [Mass/Vol] 0.98 mg/dL 0.70-1.20 [facility] Serum globulin measurementOr dered By: Bertha Silva on 06-18-2025 Globulin (S) [Mass/Vol] 2.8 g/dL 2.2-4.2 [facility] Serum glucose measurement (m ass/volume)Ordered By: Bertha Silva on 06-18-2025 Glucose [Mass/Vol] 100 mg/dL High 70-99 [facility] Serum or plasma alanine giles otransferase (ALT) measurementOrdered By: Bertha Silva on 06-18-2025 ALT [Catalytic activity/Vol] 677 U/L High <35 [facility] Serum or plasma albumin jen urement (mass/volume)Ordered By: Bertha Silva on 06-18-2025 Albumin [Mass/Vol] 4.0 g/dL 3.5-5.0 [facility] Serum or plasma albumin/glob ulin mass ratioOrdered By: Bertha Silva on 06-18-2025 Albumin/Globulin [Mass ratio] 1.4 {ratio} 0.9-2.4 [facility] Serum or plasma alkaline shagufta sphatase measurementOrdered By: Bertha Silva on 06-18-2025 ALP [Catalytic activity/Vol] 492 U/L High 35-104 [facility] Serum or plasma calcium jen urement (mass/volume)Ordered By: Bertha Silva on 06-18-2025 Calcium [Mass/Vol] 9.3 mg/dL 7.6-11.0 [facility] Serum or plasma urea nitroge n measurement (mass/volume)Ordered By: Bertha Silva on 06-18-2025 Urea nitrogen [Mass/Vol] 17 mg/dL 4-19 [facility] Sodium levelOrdered By: Joseph Silva on 06-18-2025 Sodium [Moles/Vol] 143 mmol/L 133-145 [facility] Squamous epithelial cells de tection in urine sediment by light microscopyOrdered By: Bertha Silva on 06-18-2025 Epithelial cells.squamous LM Ql (Urine sed) 0-5 SEEN /hpf 5-10 [facility] Total proteinOrdered By: Risa Silva on 06-18-2025 Protein [Mass/Vol] 6.8 g/dL 5.9-8.4 [facility] Urinalysis, Completeon 06-18 EPI,SQUAMOUS 0-5 SEEN Normal 5-10 [facility] Comment on above: Order Comment: CLEAN CATCH Performed By: #### L 100.0100, M100.651 #### [facility] [address] [place], [address] RBC 0-5 SEEN Normal 0-5 [facility] Comment on above: Order Comment: CLEAN CATCH Performed By: #### L 100.0100, M100.651 #### [facility] [address] [place], [address] WBC 0-5 SEEN Normal 0-5 [facility] Comment on above: Order Comment: CLEAN CATCH Performed By: #### L 100.0100, M100.651 #### [facility] [address] [place], [address] BACTERIA 0 SEEN Normal None Seen [facility] Comment on above: Order Comment: CLEAN CATCH Performed By: #### L 100.0100, M100.651 #### [facility] [address] [place], [address] Mucus Ql (Urine sed) 0 SEEN Normal [facility] Comment on above: Order Comment: CLEAN CATCH Performed By: #### L 100.0100, M100.651 #### [facility] [address] [place], [address] Urine clarityOrdered By: Risa Silva on 06-18-2025 Clarity (U) Sl. Cloudy Clear [facility] Urine color determinationOrd ered By: Bertha Silva on 06-18-2025 Color (U) Yellow Yellow [facility] Urine glucose detectionOrder ed By: Bertha Silva on 06-18-2025 Glucose Ql (U) Normal mg/dl Normal [facility] Urine leukocyte esterase det ection by dipstickOrdered By: Bertha Silva on 06-18-2025 Leukocyte esterase Test strip Ql (U) 25 /ul High Negative [facility] Urine pHOrdered By: Bertha reynaga on 06-18-2025 pH (U) 6.0 [pH] 5.0 - 8.0 [facility] Urine testOrdered By: Bertha Silva on 06-18-2025 HCG ( test) Ql (U) Negative [facility] Comment on above: Very dilute urine sp ecimens, as indicated by a low specificgravity, may not contain self pay representative levels of hCG. If is still suspected, a first morning urinespecimen should be collected 48 hours later and tested. Urine sediment bacteria coun t by microscopy (number/high power field)Ordered By: Bertha Silva on 06-18-2025 Bacteria LM.HPF (Urine sed) [#/Area] 0 /[HPF] None Seen [facility] Urine specific gravity measu rementOrdered By: Bertha Silva on 06-18-2025 Specific gravity (U) [Rel density] 1.020 1.002-1.03 0 [facility] Urine urobilinogen measureme ntOrdered By: Bertha Silva on 06-18-2025 Urobilinogen Ql (U) Normal mg/dl Normal [facility] White blood cell (WBC) count Ordered By: Bertha Silva on 06-18-2025 WBC (Bld) [#/Vol] 11.2 10*3/uL High 4.4-11.0 [facility] White blood cell countOrdere d By: Bertha Silva on 06-18-2025 White blood cell count 0-5 SEEN /hpf 0-5 [facility] AFP, Tumor Markeron 06-16-20 25 AFP TUMOR AIDEE 4.4 ng/mL Normal 0.0-9.2 [facility] Comment on above: Result Comment: [employer] Electrochemiluminescence Immunoassay (ECLIA) Values obtained with different assay methods or kits cannot be used interchangeably. Results cannot be interpreted as absolute evidence of the presence or absence of malignant disease. This test is not interpretable in females. Performed at: [address] [id number] Campus Receptionist: Víctor Chen PhD, Phone: [phone] Performed By: #### L 9470.4300 ####[facility] [address] [place], [address] Carbohydrate AG 19-9on 06-16 CA 19-9 37 U/mL High 0-35 [facility] Comment on above: Result Comment: [employer] Electrochemiluminescence Immunoassay (ECLIA) Values obtained with different assay methods or kits cannot be used interchangeably. Results cannot be interpreted as absolute evidence of the presence or absence of malignant disease. Performed at: [address] [id number] Campus Receptionist: Víctor Chen PhD, Phone: [phone] Performed By: #### L 3100.2300, L3100.5020 #### [facility] [address] [place], [address] Carcinoembryonic Antigenon 0 06-16-2025 CEA 8.0 ng/mL High 0.0-4.7 [facility] Comment on above: Result Comment: Nons mokers <3.9 Smokers <5.6 [employer] Electrochemiluminescence Immunoassay (ECLIA) Values obtained with different assay methods or kits cannot be used interchangeably. Results cannot be interpreted as absolute evidence of the presence or absence of malignant disease. Performed By: #### L 3100.2300, L3100.5020 #### [facility] [address] [place], [address] Anion gap in Serum or Plasma Ordered By: Tika Casey on 06-15-2025 Anion gap [Moles/Vol] 14 mmol/L 5-15 [facility] BUN/creatinine ratioOrdered By: Tika Casey on 06-15-2025 Urea nitrogen/Creatinine [Mass ratio] 21.7 mg/mg High 10-20 [facility] Bilirubin, totalOrdered By: Tika Casey on 06-15-2025 Bilirubin [Mass/Vol] 2.59 mg/dL High 0.00-1.30 [facility] CA 19-9 agOrdered By: Ami Casey on 06-15-2025 CA 19-9 ag 37 U/mL High 0-35 [facility] Comment on above: [employer] El ectrochemiluminescence Immunoassay(ECLIA)Values obtained with different assay methods or kits cannotbe used interchangeably. Results cannot be interpreted asabsolute evidence of the presence or absence of malignantdisease.Performed at: [facility] [id number] Director: Víctor Chen PhD, Phone: [phone] CBC-Complete Blood Cnt No Di ffon 06-15-2025 Erythrocyte distribution width (RBC) [Ratio] 15.6 % High 11.6-14.6 [facility] Comment on above: Performed By: #### L 100.0500, L501.2300, L501.5200, L500.4050 ####[facility] [address] [place], [address] Hematocrit (Bld) [Volume fraction] 36.0 % Low 37-47 [facility] Comment on above: Performed By: #### L 100.0500, L501.2300, L501.5200, L500.4050 ####[facility] [address] [place], [address] Hemoglobin (Bld) [Mass/Vol] 12.2 g/dL Normal 12.0-15.0 [facility] Comment on above: Performed By: #### L 100.0500, L501.2300, L501.5200, L500.4050 ####[facility] [address] [place], [address] MCH (RBC) [Entitic mass] 28.1 pg Normal 27.0-32.0 [facility] Comment on above: Performed By: #### L 100.0500, L501.2300, L501.5200, L500.4050 ####[facility] [address] [place], [address] MCHC (RBC) [Mass/Vol] 33.9 g/dL Normal 32-36 [facility] Comment on above: Performed By: #### L 100.0500, L501.2300, L501.5200, L500.4050 ####[facility] [address] [place], [address] MCV (RBC) [Entitic vol] 82.9 fL Normal 81-99 [facility] Comment on above: Performed By: #### L 100.0500, L501.2300, L501.5200, L500.4050 ####[facility] [address] [place], [address] Platelet mean volume (Bld) [Entitic vol] 11.9 fL Normal 6.2-12.0 [facility] Comment on above: Performed By: #### L 100.0500, L501.2300, L501.5200, L500.4050 ####[facility] [address] [place], [address] Platelets (Bld) [#/Vol] 307 10*3/uL Normal 150-450 [facility] Comment on above: Performed By: #### L 100.0500, L501.2300, L501.5200, L500.4050 ####[facility] [address] [place], [address] RBC (Bld) [#/Vol] 4.34 10*6/uL Normal 4.2-5.4 [facility] Comment on above: Performed By: #### L 100.0500, L501.2300, L501.5200, L500.4050 ####[facility] [address] [place], [address] RDW SD 47.0 fl High 35.1-43.9 [facility] Comment on above: Performed By: #### L 100.0500, L501.2300, L501.5200, L500.4050 ####[facility] [address] [place], [address] WBC (Bld) [#/Vol] 15.1 10*3/uL High 4.4-11.0 [facility] Comment on above: Performed By: #### L 100.0500, L501.2300, L501.5200, L500.4050 ####[facility] [address] [place], [address] Carbon dioxide, total [Moles /volume] in Central venous bloodOrdered By: Tika Casey on 06-15-2025 CO2 [Moles/Vol] 21.7 mmol/L 21.0-32.0 [facility] Chloride assayOrdered By: Kevin Casey on 06-15-2025 Chloride [Moles/Vol] 103 mmol/L 98-108 [facility] Comprehensive Metabolic Prof ilon 06-15-2025 Albumin [Mass/Vol] 3.6 g/dL Normal 3.5-5.0 [facility] Comment on above: Performed By: #### L 100.0500, L501.2300, L501.5200, L500.4050 ####[facility] [address] [place], [address] Albumin/Globulin [Mass ratio] 1.4 {ratio} Normal 0.9-2.4 [facility] Comment on above: Performed By: #### L 100.0500, L501.2300, L501.5200, L500.4050 ####[facility] [address] [place], [address] ALK PHOS 789 U/L High 35-104 [facility] Comment on above: Performed By: #### L 100.0500, L501.2300, L501.5200, L500.4050 ####[facility] [address] [place], [address] ALT [Catalytic activity/Vol] 968 U/L High <=34 [facility] Comment on above: Performed By: #### L 100.0500, L501.2300, L501.5200, L500.4050 ####[facility] [address] [place], [address] AST [Catalytic activity/Vol] 464 U/L High <=31 [facility] Comment on above: Performed By: #### L 100.0500, L501.2300, L501.5200, L500.4050 ####[facility] [address] [place], [address] Bilirubin [Mass/Vol] 2.59 mg/dL High 0.00-1.30 [facility] Comment on above: Performed By: #### L 100.0500, L501.2300, L501.5200, L500.4050 ####[facility] [address] [place], [address] BUN/CRE 21.7 RATIO High 10-20 [facility] Comment on above: Performed By: #### L 100.0500, L501.2300, L501.5200, L500.4050 ####[facility] [address] [place], [address] Calcium [Mass/Vol] 9.2 mg/dL Normal 7.6-11.0 [facility] Comment on above: Performed By: #### L 100.0500, L501.2300, L501.5200, L500.4050 ####[facility] [address] [place], [address] Chloride [Moles/Vol] 103 mmol/L Normal 98-108 [facility] Comment on above: Performed By: #### L 100.0500, L501.2300, L501.5200, L500.4050 ####[facility] [address] [place], [address] CO2 [Moles/Vol] 21.7 mmol/L Normal 21.0-32.0 [facility] Comment on above: Performed By: #### L 100.0500, L501.2300, L501.5200, L500.4050 ####[facility] [address] [place], [address] Creatinine [Mass/Vol] 0.78 mg/dL Normal 0.70-1.20 [facility] Comment on above: Performed By: #### L 100.0500, L501.2300, L501.5200, L500.4050 ####[facility] [address] [place], [address] ECRCL 81.39 ml/min Normal 50-250 [facility] Comment on above: Performed By: #### L 100.0500, L501.2300, L501.5200, L500.4050 ####[facility] [address] [place], [address] GAP 14 Normal 5-15 [facility] Comment on above: Performed By: #### L 100.0500, L501.2300, L501.5200, L500.4050 ####[facility] [address] [place], [address] GFR/1.73 sq M.predicted among non-blacks MDRD (S/P/Bld) [Vol rate/Area] 89 mL/min/{1.73_m2} Normal >60 [facility] Comment on above: Result Comment: mL/m in/1.73m2 CKD-EPI Creatinine Equation (2020) Performed By: #### L 100.0500, L501.2300, L501.5200, L500.4050 ####[facility] [address] [place], [address] Globulin (S) [Mass/Vol] 2.6 g/dL Normal 2.2-4.2 [facility] Comment on above: Performed By: #### L 100.0500, L501.2300, L501.5200, L500.4050 ####[facility] [address] [place], [address] Glucose [Mass/Vol] 121 mg/dL High 70-99 [facility] Comment on above: Performed By: #### L 100.0500, L501.2300, L501.5200, L500.4050 ####[facility] [address] [place], [address] Potassium [Moles/Vol] 4.2 mmol/L Normal 3.3-5.1 [facility] Comment on above: Performed By: #### L 100.0500, L501.2300, L501.5200, L500.4050 ####[facility] [address] [place], [address] Sodium [Moles/Vol] 139 mmol/L Normal 133-145 [facility] Comment on above: Performed By: #### L 100.0500, L501.2300, L501.5200, L500.4050 ####[facility] [address] [place], [address] T PROT 6.2 g/dL Normal 5.9-8.4 [facility] Comment on above: Performed By: #### L 100.0500, L501.2300, L501.5200, L500.4050 ####[facility] [address] [place], [address] Urea nitrogen [Mass/Vol] 17 mg/dL Normal 4-19 [facility] Comment on above: Performed By: #### L 100.0500, L501.2300, L501.5200, L500.4050 ####[facility] [address] [place], [place], [id number] Erythrocyte distribution wid th ratioOrdered By: Tika Casey on 06-15-2025 Erythrocyte distribution width (RBC) [Ratio] 15.6 % High 11.6-14.6 [facility] Erythrocyte distribution wid th standard deviationOrdered By: Tika Casey on 06-15-2025 Erythrocyte distribution width (RBC) [Ratio] 47.0 fl High 35.1-43.9 [facility] Glomerular filtration rate ( GFR) estimation/1.73 sq m using serum, plasma, or whole bOrdered By: Tika Casey on 06-15-2025 GFR/1.73 sq M.predicted among non-blacks MDRD (S/P/Bld) [Vol rate/Area] 89 mL/min/{1.73_m2} >60 [facility] Comment on above: mL/min/1.73m2 CKD-EP I Creatinine Equation (2020) Hematocrit Auto (Bld) [Volum e fraction]Ordered By: Tika Casey on 06-15-2025 Hematocrit (Bld) [Volume fraction] 36.0 % Low 37-47 [facility] Hemoglobin measurementOrdere d By: Tika Casey on 06-15-2025 Hemoglobin (Bld) [Mass/Vol] 12.2 g/dL 12.0-15.0 [facility] Laboratory - Chemistry and C hemistry - challengeOrdered By: Tika Casey on 06-15-2025 AST [Catalytic activity/Vol] 464 U/L High <32 [facility] MCV (mean corpuscular volume ) determinationOrdered By: Tika Casey on 06-15-2025 MCV (RBC) [Entitic vol] 82.9 fL 81-99 [facility] Magnesiumon 06-15-2025 Magnesium [Mass/Vol] 1.7 mg/dL Normal 1.5-2.2 [facility] Comment on above: Performed By: #### L 100.0500, L501.2300, L501.5200, L500.4050 ####[facility] [address] [place], [address] Magnesium measurement (mass/ volume)Ordered By: Tika Casey on 06-15-2025 Magnesium (Unsp spec) [Mass/Vol] 1.7 mg/dL 1.5-2.2 [facility] Mean corpuscular hemoglobin (MCH) determinationOrdered By: Tika Casey on 06-15-2025 MCH (RBC) [Entitic mass] 28.1 pg 27.0-32.0 [facility] Mean corpuscular hemoglobin concentration (MCHC) determinationOrdered By: Tika Casey on 06-15-2025 MCHC (RBC) [Mass/Vol] 33.9 g/dL 32-36 [facility] Mean platelet volume determi nationOrdered By: Tika Casey on 06-15-2025 Platelet mean volume (Bld) [Entitic vol] 11.9 fL 6.2-12.0 [facility] Phosphoruson 06-15-2025 Phosphate [Mass/Vol] 5.5 mg/dL High 2.7-4.5 [facility] Comment on above: Performed By: #### L 100.0500, L501.2300, L501.5200, L500.4050 ####[facility] [address] [place], [place], [id number] Platelet countOrdered By: Kevin Casey on 06-15-2025 Platelets (Bld) [#/Vol] 307 10*3/uL 150-450 [facility] Potassium measurement (mass/ volume)Ordered By: Tika Casey on 06-15-2025 Potassium (Unsp spec) [Mass/Vol] 4.2 mmol/L 3.3-5.1 [facility] RBC Auto (Bld) [#/Vol]Ordere d By: Tika Casey on 06-15-2025 RBC (Bld) [#/Vol] 4.34 10*6/uL 4.2-5.4 [facility] Serum creatinine measurement (mass/volume)Ordered By: Tika Casey on 06-15-2025 Creatinine [Mass/Vol] 0.78 mg/dL 0.70-1.20 [facility] Serum globulin measurementOr dered By: Tika Casey on 06-15-2025 Globulin (S) [Mass/Vol] 2.6 g/dL 2.2-4.2 [facility] Serum glucose measurement (m ass/volume)Ordered By: Tika Casey on 06-15-2025 Glucose [Mass/Vol] 121 mg/dL High 70-99 [facility] Serum or plasma alanine giles otransferase (ALT) measurementOrdered By: Tika Casey on 06-15-2025 ALT [Catalytic activity/Vol] 968 U/L High <35 [facility] Serum or plasma albumin jen urement (mass/volume)Ordered By: Tika Casey on 06-15-2025 Albumin [Mass/Vol] 3.6 g/dL 3.5-5.0 [facility] Serum or plasma albumin/glob ulin mass ratioOrdered By: Tika Casey on 06-15-2025 Albumin/Globulin [Mass ratio] 1.4 {ratio} 0.9-2.4 [facility] Serum or plasma alkaline shagufta sphatase measurementOrdered By: Tika Casey on 06-15-2025 ALP [Catalytic activity/Vol] 789 U/L High 35-104 [facility] Serum or plasma calcium jen urement (mass/volume)Ordered By: Tika Casey on 06-15-2025 Calcium [Mass/Vol] 9.2 mg/dL 7.6-11.0 [facility] Serum or plasma carcinoembry onic antigen measurement (mass/volume)Ordered By: Tika Casey on 06-15-2025 Carcinoembryonic Ag [Mass/Vol] 8.0 ng/mL High 0.0-4.7 [facility] Comment on above: Nonsmokers <3.9 Smok ers <5.6[employer] Electrochemiluminescence Immunoassay(ECLIA)Values obtained with different assay methods or kitscannot be used interchangeably. Results cannot beinterpreted as absolute evidence of the presence orabsence of malignant disease. Serum or plasma urea nitroge n measurement (mass/volume)Ordered By: Tika Casey on 06-15-2025 Urea nitrogen [Mass/Vol] 17 mg/dL 4-19 [facility] Sodium levelOrdered By: Jen Casey on 06-15-2025 Sodium [Moles/Vol] 139 mmol/L 133-145 [facility] Total proteinOrdered By: Christelle Casey on 06-15-2025 Protein [Mass/Vol] 6.2 g/dL 5.9-8.4 [facility] White blood cell (WBC) count Ordered By: Tika Casey on 06-15-2025 WBC (Bld) [#/Vol] 15.1 10*3/uL High 4.4-11.0 [facility] 12 Lead EKGon 06-14-2025 12 Lead EKG [facility] Cardiovascular Services [address] [place] [address] 12 Lead EKG 06/18/25 1715 MR#: [id number] Acct: [id number] Name: CORIE LUGO Rep #: [id number] : 1970 54 From: Itzel Perez MD Attending Dr: Dr. Tika Casey, DO Status: DIS I N Ordering Dr: Killian Wallace DO Date: 06/14/25 [place] [facility] [place]: F C Admitted: 06/13/25 Test Reason : P Blood Pressure : */* mmHG Vent. Rate : 56 BPM Atrial Rate : 56 BPM P-R Int : 132 ms QRS Dur : 80 ms QT Int : 424 ms P-R-T Axes : 34 13 24 degrees QTcB Int : 409 ms Sinus bradycardia Otherwise normal ECG Confirmed by Itzel Perez ([id number]), film or videotape editor ROSA WINTER ([id number]) on 06/19/2025 12:00:40 PM Referred By: Confirmed By: Itzel Perez 09/16/25 1200 Date Itzel Perez MD CC: Dr. Tika Casey, DO; Dr. Joshua Whitlock MD; Killian Wallace, DO Signed Normal [facility] CBC-Complete Blood Cnt No Di ffon 06-14-2025 Erythrocyte distribution width (RBC) [Ratio] 15.8 % High 11.6-14.6 [facility] Comment on above: Performed By: #### L 100.0100, M100.651 #### [facility] Laboratory [address] [place], [address] Hematocrit (Bld) [Volume fraction] 37.2 % Normal 37-47 [facility] Comment on above: Performed By: #### L 100.0100, M100.651 #### [facility] [address] [place], [address] Hemoglobin (Bld) [Mass/Vol] 12.8 g/dL Normal 12.0-15.0 [facility] Comment on above: Performed By: #### L 100.0100, M100.651 #### [facility] [address] [place], [address] MCH (RBC) [Entitic mass] 28.5 pg Normal 27.0-32.0 [facility] Comment on above: Performed By: #### L 100.0100, M100.651 #### [facility] [address] [place], [address] MCHC (RBC) [Mass/Vol] 34.4 g/dL Normal 32-36 [facility] Comment on above: Performed By: #### L 100.0100, M100.651 #### [facility] [address] [place], [address] MCV (RBC) [Entitic vol] 82.9 fL Normal 81-99 [facility] Comment on above: Performed By: #### L 100.0100, M100.651 #### [facility] [address] [place], [address] Platelet mean volume (Bld) [Entitic vol] 11.6 fL Normal 6.2-12.0 [facility] Comment on above: Performed By: #### L 100.0100, M100.651 #### [facility] [address] [place], [address] Platelets (Bld) [#/Vol] 285 10*3/uL Normal 150-450 [facility] Comment on above: Performed By: #### L 100.0100, M100.651 #### [facility] [address] [place], [address] RBC (Bld) [#/Vol] 4.49 10*6/uL Normal 4.2-5.4 [facility] Comment on above: Performed By: #### L 100.0100, M100.651 #### [facility] [address] [place], [address] RDW SD 46.5 fl High 35.1-43.9 [facility] Comment on above: Performed By: #### L 100.0100, M100.651 #### [facility] [address] [place], [address] WBC (Bld) [#/Vol] 7.9 10*3/uL Normal 4.4-11.0 [facility] Comment on above: Performed By: #### L 100.0100, M100.651 #### [facility] [address] [place], [address] Comprehensive Metabolic Prof ilon 06-14-2025 Albumin [Mass/Vol] 3.7 g/dL Normal 3.5-5.0 [facility] Comment on above: Performed By: #### L 100.0100, M1.651 #### [facility] [address] [place], [address] Albumin/Globulin [Mass ratio] 1.4 {ratio} Normal 0.9-2.4 [facility] Comment on above: Performed By: #### L 100.0100, M100.651 #### [facility] [address] [place], [address] ALK PHOS 820 U/L High 35-104 [facility] Comment on above: Performed By: #### L 100.0100, M1.651 #### [facility] [address] [place], [address] ALT [Catalytic activity/Vol] 950 U/L High <=34 [facility] Comment on above: Performed By: #### L 100.0100, .651 #### [facility] [address] [place], [address] AST [Catalytic activity/Vol] 481 U/L High <=31 [facility] Comment on above: Performed By: #### L 100.0100, M1.651 #### [facility] [address] [place], [address] Bilirubin [Mass/Vol] 5.50 mg/dL High 0.00-1.30 [facility] Comment on above: Performed By: #### L 100.0100, M1.651 #### [facility] [address] [place], [address] BUN/CRE 19.1 RATIO Normal 10-20 [facility] Comment on above: Performed By: #### L 100.0100, M1.651 #### [facility] [address] [place], [address] Calcium [Mass/Vol] 9.5 mg/dL Normal 7.6-11.0 [facility] Comment on above: Performed By: #### L 100.0100, M100.651 #### [facility] [address] [place], [address] Chloride [Moles/Vol] 104 mmol/L Normal 98-108 [facility] Comment on above: Performed By: #### L 100.0100, M100.651 #### [facility] [address] [place], [address] CO2 [Moles/Vol] 22.9 mmol/L Normal 21.0-32.0 [facility] Comment on above: Performed By: #### L 100.0100, M100.651 #### [facility] [address] [place], [address] Creatinine [Mass/Vol] 0.91 mg/dL Normal 0.70-1.20 [facility] Comment on above: Result Comment: Icte brianne present, Results may be affected. Performed By: #### L 100.0100, M100.651 #### [facility] [address] [place], [address] ECRCL 69.75 ml/min Normal 50-250 [facility] Comment on above: Performed By: #### L 100.0100, M100.651 #### [facility] [address] [place], [address] GAP 12 Normal 5-15 [facility] Comment on above: Performed By: #### L 100.0100, M100.651 #### [facility] [address] [place], [address] GFR/1.73 sq M.predicted among non-blacks MDRD (S/P/Bld) [Vol rate/Area] 74 mL/min/{1.73_m2} Normal >60 [facility] Comment on above: Result Comment: mL/m in/1.73m2 CKD-EPI Creatinine Equation (2020) Performed By: #### L 100.0100, M100.651 #### [facility] [address] [place], [address] Globulin (S) [Mass/Vol] 2.7 g/dL Normal 2.2-4.2 [facility] Comment on above: Performed By: #### L 100.0100, M100.651 #### [facility] [address] [place], [address] Glucose [Mass/Vol] 114 mg/dL High 70-99 [facility] Comment on above: Performed By: #### L 100.0100, M100.651 #### [facility] [address] [place], [address] Potassium [Moles/Vol] 4.0 mmol/L Normal 3.3-5.1 [facility] Comment on above: Performed By: #### L 100.0100, M100.651 #### [facility] [address] [place], [address] Sodium [Moles/Vol] 140 mmol/L Normal 133-145 [facility] Comment on above: Performed By: #### L 100.0100, M100.651 #### [facility] [address] [place], [address] T PROT 6.4 g/dL Normal 5.9-8.4 [facility] Comment on above: Performed By: #### L 100.0100, M100.651 #### [facility] [address] [place], [address] Urea nitrogen [Mass/Vol] 17 mg/dL Normal 4-19 [facility] Comment on above: Performed By: #### L 100.0100, M100.651 #### [facility] [address] [place], [address] ERCP Biliary/Pancreason 06-04 ERCP Biliary/Pancreas [facility] Imaging Services [address] [place], [place] [id number] ERCP Biliary/Pancreas MR#: [id number] Acct: [id number] Name: CORIE LUGO Rep #: [id number] : 1970 F 54 From: Serafin Groves MD PCP: Dr. Joshua Whitlock MD Status: ADM IN Study: ERCP Biliary/Pancreas Date of Exam: 06/14/25 Exam# [id number] Ordering Dr: Killian Wallace DO EXAM: ERCP INTRAOPERATIVE FLUOROSCOPY CLINICAL HISTORY: Pancreatic mass, jaundice COMPARISON: Abdominal CT 06/13/2025. TECHNIQUE: 12 intraoperative fluoroscopic images are submitted for review. FINDINGS: ERCP demonstrates moderate intra and extrahepatic biliary ductal dilatation, as seen on prior CT. No filling defects to suggest choledocholithiasis appreciated. Total fluoroscopy time 118.8 seconds. Total radiation dose 26.04 mGy. RAD/ERCP Biliary/Pancreas IMPRESSION: ERCP as above, demonstrating intra and extrahepatic biliary ductal dilatation, as noted on prior CT with suspected pancreatic head mass lesion. Reading Location: [facility] CC: Dr. Joshua Whitlock MD; Killian Wallace DO [employer] Supervisor: Signed Normal [facility] ERCP Reporton 06-14-2025 ERCP Report [facility] Medical Records Department [address] [place] [address] ERCP Report MR#: [id number] Acct: [id number] Name: CORIE LUOG Rep #: [id number] : 1970 54 From: Killian Wallace DO PCP: Dr. Joshua Whitlock MD Status:ADM IN Patient Name: Corie Lugo Procedure Date: 06/14/2025 4:53 PM Date of : 1970 Age: 54 Procedure: ERCP Indications: Jaundice, Elevated liver enzymes, Malignant tumor of the head of pancreas Providers: Killian Wallace DO Medicines: General Anesthesia Patient Profile: This is a 54 year old female. Refer to note in patient chart for documentation of history and physical. Patient has symptoms of acute right upper quadrant abdominal pain, acute epigastric abdominal pain and acute jaundice. This patient has no history of previous ERCP. This patient has no history of surgical alteration of the upper digestive tract anatomy. Complications: No immediate complications. Procedure: Pre-Anesthesia Assessment: - Prior to the procedure, a History and Physical was performed, and patient medications and allergies were reviewed. The patient is competent. The risks and benefits of the procedure and the sedation options and risks were discussed with the patient. All questions were answered and informed consent was obtained. Patient identification and proposed procedure were verified by the physician in the pre-procedure area. Mental Status Examination: alert and oriented. Airway Examination: normal oropharyngeal airway and neck mobility. Respiratory Examination: clear to auscultation. CV Examination: normal. Prophylactic Antibiotics: The patient does not require prophylactic antibiotics. Prior Anticoagulants: The patient has taken no anticoagulant or antiplatelet agents except for NSAID medication. ASA Grade Assessment: II - A patient with mild systemic disease. After reviewing the risks and benefits, the patient was deemed in satisfactory condition to undergo the procedure. The anesthesia plan was to use monitored anesthesia care (MAC). Immediately prior to administration of medications, the patient was re-assessed for adequacy to receive sedatives. The heart rate, respiratory rate, oxygen saturations, blood pressure, adequacy of pulmonary ventilation, and response to care were monitored throughout the procedure. The physical status of the patient was re-assessed after the procedure. After obtaining informed consent, the scope was passed under direct vision. Throughout the procedure, the patient's blood pressure, pulse, and oxygen saturations were monitored continuously. The Duodenoscope was introduced through the mouth, and advanced to the duodenum and used to inject contrast into the bile duct. The ERCP was accomplished without difficulty. The patient tolerated the procedure well. Scope In: 5:41:28 PM Scope Out: 6:48:17 PM Total Procedure Duration Time 1 hour 6 minutes 49 seconds Findings: The timing adjuster film was normal. The esophagus was successfully intubated under direct vision. The scope was advanced to a normal major papilla in the descending duodenum without detailed examination of the pharynx, larynx and associated structures, and upper GI tract. The upper GI tract was grossly normal. A long 0.025 inch Jagwire was passed into the biliary tree. The short-nosed traction sphincterotome was passed over the guidewire and the bile duct was then deeply cannulated. Contrast was injected. I personally interpreted the bile duct images. There was brisk flow of contrast through the ducts. Image quality was adequate. Contrast extended to the entire biliary tree. Opacification of the entire biliary tree except for the cystic duct and gallbladder and entire biliary tree was successful. The maximum diameter of the ducts was 10 mm. The lower third of the main bile duct contained a single localized stenosis 3 mm in length. The main bile duct was diffusely dilated, secondary to a stricture. The largest diameter was 12 mm. A 5 mm biliary sphincterotomy was made with a braided traction (standard) sphincterotome using ERBE electrocautery. There was no post-sphincterotomy bleeding. The biliary tree was swept with a 12 mm balloon starting at the upper third of the main bile duct, middle third of the main bile duct, lower third of the main duct, bifurcation, left intrahepatic duct(s), left main hepatic duct, right intrahepatic duct(s) and right main hepatic duct. Sludge was swept from the duct. All stones were removed. Pus was swept from the duct. Cells for cytology were obtained by brushing in the lower third of the main bile duct. The bile duct was explored endoscopically using the SpRed LaGoon direct visualization system. The SpyScope was advanced to the lower third of the main duct. Visibility with the scope was good. The lumen of t (more content not included)... Normal [facility] MR/CON.PCM.GIon 06-14-2025 MR/CON.PCM.GI [facility] Medical Records Department [address] [place] [address] Consultation - GI 06/14/25 1650 MR#: [id number] Acct: [id number] Name: CORIE LUGO DONOVAN Rep #: [id number] : 1970 54 From: Killian Wallace DO PCP: Dr. Joshua Whitlock MD Status:ADM IN [place] [facility] [place] [id number] HPI Consult Data Date of Consult: 06/14/25 HPI Narrative Reason for Consultation: jaundice HPI Narrative: CORIE LUGO, is a 54-year-old female presents with painless, progressive yellow discoloration of her skin and eyes over the past two to three weeks. She reports associated generalized pruritus (itching) and dark urine. She also notes light-colored, derik-like stools. The patient reports a 10- pound unintentional weight loss over the past month. She denies any abdominal pain, nausea, vomiting, or fever. She is a current smoker. No alcohol use reported. Lives with her . CT Scan (Abdomen/Pelvis): * 14 mm mass in the head of the pancreas. * Presence of gallstones. * Dilation of the common bile duct, likely due to compression by the pancreatic head mass. * No evidence of metastasis on this scan. [facility] Medical History Post-menopausal Wears glasses Anxiety Arthritis Easy bruising Migraine headache Shortness of breath on exertion Smoker History of edema History of pain when walking Home Medications ???Medication ???Instructions ???Recorded ???Last Taken ???Type cholecalciferol (vitamin D3) 25 25 mcg PO DAILY 08/29/24 09/24/24 History mcg (1,000 unit) capsule (Vitamin D3) diclofenac sodium 75 mg 75 mg PO BID 08/29/24 09/20/24 His tory tablet,delayed release loratadine 10 mg capsule 10 mg PO DAILY 08/29/24 09/20/24 H istory melatonin 3 mg capsule 3 mg PO QHS 08/29/24 Unknown Histo ry sumatriptan succinate 50 mg tablet 50 mg PO PRN PRN migraine headac he 08/29/24 Unknown History omeprazole 20 mg capsule,delayed 20 mg PO DAILY 06/13/25 Unknown Hi story release sucralfate 1 gram tablet 1 g PO 4X/DAY 06/13/25 Unknown His tory Allergy/AdvReac Type Severity Reaction Status Date / Time No Known Allergies Allergy Verified 09/25/24 06:02 Surgical History Hx of total knee arthroplasty Hx of arthroscopic knee surgery History of endometrial ablation History of ankle surgery History of carpal tunnel surgery of right wrist Hx of foot surgery Hx of tubal ligation Social History Smoking Status: Current every day smoker tobacco type: cigarettes ROS Constitutional Constitutional: Denies fatigue, fever(s), poor appetite, weight gain or weight loss Gastrointestinal Gastrointestinal: Denies belching, bloating, change in bowel habits, change in stool character, chewing difficulty, coffee ground emesis, constipation, cramping, diarrhea, dyspepsia, dysphagia, early satiety, excessive flatus, fecal incontinence, heartburn, hematemesis, hematochezia, hemorrhoids, loose stools, melena, nausea, odynophagia, rectal bleeding, tenesmus, vomiting or weight changes Physical Exam Const alert, oriented x3, no apparent distress and healthy appearing General Appearance: cooperative GI normal to inspection, nondistended, normoactive bowel sounds, soft to palpation, non-tender and non- distended Percussion: normal to percussion Rectal Exam: deferred Lab / Micro Data 06/14/25 04:10 06/14/25 04:10 Labs: Laboratory Results - last 24 hr 06/14/25 04:10: WBC 7.9, RBC 4.49, Hgb 12.8, Hct 37.2, MCV 82.9, MCH 28.5, MCHC 34.4, RDW Std Deviation 46.5 H, RDW Coeff of Morelia 15.8 H, Plt Count 285, MPV 11.6, Sodium 140, Potassium 4.0, Chloride 104, Carbon Dioxide 22.9, Anion Gap 12, BUN 17, Creatinine 0.91, Estim Creat Clear Calc 69.75, Est GFR (MDRD) Non-Af 74, BUN/Creatinine Ratio 19.1, Glucose 114 H, Calcium 9.5, Total Bilirubin 5.50 H, AST 481 H, ALT 950 H, Alkaline Phosphatase 820 H, Total Protein 6.4, Albumin 3.7, Globulin 2.7, Albumin/Globulin Ratio 1.4 Imaging Radiology Impression Gallbladder Ultrasound 06/13/25 15:19 IMPRESSION: Dilated intrahepatic biliary ducts. Normal gallbladder. Reading Location: [facility] Assessment Plan Assessment/Plan (1) Mass of head of pancreas: (2) Biliary obstruction: (3) Abdominal pain: PLAN: Plan Problem List: * Painless obstructive jaundice:???Likely caused by the pancreatic head mass compressing the common bile duct. * Pancreatic head mass (14mm):???Highly suspicious for pancreatic adenocarcinoma, especially given the painless jaundice, smoking history, and weight loss. * Cholelithiasis (gallstones):???Found on imaging, though not the prim (more content not included)... Normal [facility] MR/OP.PROVATon 06-14-2025 MR/OP.[facility] Medical Records Department [address] [place] [address] Provation Physician Letter MR#: [id number] Acct: [id number] Name: CORIE LUGO Rep #: [id number] : 1970 54 From: Killian Wallace DO PCP: Dr. Joshua Whitlock MD Status:ADM IN 06/14/2025 Joshua Whitlock Re : ERCP procedure for Croie Lugo Gisselr Kwabena This procedure was performed on , June 14, 2025. My impressions and recommendations are as follows: Impressions : - Severely narrowed lumen in the biliary tract visualized via SpyGlass. - A single localized biliary stricture was found in the lower third of the main bile duct. The stricture was malignant appearing. - The entire main bile duct was dilated, secondary to a stricture. - Choledocholithiasis was found. Complete removal was accomplished by biliary sphincterotomy and balloon extraction. - A biliary sphincterotomy was performed. - The biliary tree was swept and pus was found. - Cells for cytology obtained in the lower third of the main duct. - The lower third of the main bile duct was successfully dilated. - One temporary stent was placed into the common bile duct. Recommendations : CA 19-9, AFP, CEA My findings are described in the full procedure note, which is enclosed. If I can be of further assistance, please feel free to contact me at . Sincerely, Killian Wallace DO 06/14/2025 6:56:22 PM This report has been signed electronically. 06/14/251855 Date Killian Wallace DO Cosigner Signature: Date (if indicated) CC: Dr. Maynor Blanton DO; Dr. Tika Casey DO; Dr. Joshua Whitlock MD; Killian Wallace DO Date Dictated: 06/14/25 165 Date Transcribed: Cargo Service Supervisor: RF Signed [facility] MR/POSTOP.ANEon 06-14-2025 MR/POSTOP.[facility] Medical Records Department [address] [place] [address] Anesthesia Postop Eval I 06/14/251909 MR#: [id number] Acct: [id number] Name: CORIE LUGO Rep #: [id number] : 1970 54 From: Syd Dwyer MD PCP: Dr. Joshua Whitlock MD Status:ADM IN Y Race: C Location: [place] [address] Anesthesia: Postop Eval I Current Vital Signs Temperature: 97.8 F Pulse Rate: 78 Blood Pressure: 118/66 Respiratory Rate: 16 Pulse Ox: 99 Oxygen Delivery Method: Room Air Assessment Airway patent: Yes Spontaneous unlabored respirations: Yes Mental status: Asleep (Arousable) nausea: No Vomiting: No Anesthesia Complication: No Fluid Hydration Crystalloid volume administer (ml): 800 Total IV fluid infused: 800 Progress Note Anesthesia document: Postop Eval 1 completed: Yes 06/14/251911 Date Syd Dwyer MD Cosigner Signature: Date CC: Signed [facility] MR/YGIMELUL6ys 06-14-2025 MR/POSTOPAN2 [facility] Medical Records Department [address] [place] [address] Anesthesia Postop Eval II 06/14/252101 MR#: [id number] Acct: [id number] Name: CORIE LUGO Rep #: [id number] : 1970 54 From: Syd Dwyer MD PCP: Dr. Joshua Whitlock MD Status:ADM IN Y Race: C Location: MS3 [id number] Anesthesia Postop Eval I Sum Postop Eval Completion status Anesthesia document: Postop Eval 1 completed: Yes Anesthesia Postop Eval I Summary Anesthesia Postop Eval I Summary: Anesthesia Postop Eval I: Assessment Summary Airway patent Yes 06/14/25 19:12 Spontaneous unlabored Yes 06/14/25 19:12 respirations Mental status Asleep - Arousable 06/14/25 19:12 nausea No 06/14/25 19:12 Vomiting No 06/14/25 19:12 Anesthesia Postop Eval I: Fluid Summary Crystalloid volume administer 800 06/14/25 19:12 (ml) Colloids volume administered ( ml) Blood Product volume administered (ml) Total IV fluid infused 800 06/14/25 19:12 Anesthesia Postop Eval I: Summary Notes Anesthesia Complication No 06/14/25 19:12 Anesthesia Complication Comment: Post-operative progress note Anesthesia: Postop Eval II Evaluation Mental status: Awake and Calm Pain Level: 4 nausea: No Vomiting: No Complications Anesthesia Complication: No 06/14/252102 Date Syd Dwyer MD Cosigner Signature: Date CC: Signed Normal [facility] Special Stain Group IIon Special Stain Group II --------- Patient Age/Sex Location Account Attending Physician CORIE LUGO 54/F MS3 [id number] Dr. Tika Casey DO Specimen: [id number] Received: 06/14/25 Status: AMBER Eaton Num: [id number] Spec Type: Fluid Subm Dr: DO HETAL Galvan OPERATION: ERCP PRE-OP DIAGNOSIS: Abdominal pain, biliary obstruction, mass of head of pancreas TISSUE SUBMITTED: A- Biliary stricture - brushings, B- Biliary stricture - brush tip #1, C- Biliary stricture - brush tip #2 DIAGNOSIS CYTOLOGY A. Biliary stricture, brushings (smear x3): - Atypical cells suspicious for malignancy- see Comment. B. Biliary stricture, brush tip #1 (cytospin, cellblock): - Non-diagnostic. - Acellular specimen. C. Biliary stricture, brush tip #2 (cytospin, cellblock): - Atypical cells suspicious for malignancy - see Comment. COMMENT Correlate with [id number]. Selected slides/images were reviewed in intradepartmental consultation by Dr Jase Eason (Community pathology division, [facility]). The findings were discussed with Dr Bev Stoner, 06/22/25. CYTOLOGY STUDY Slides are reviewed. CYTOLOGY GROSS A. Received are 3 smears labeled with the patient's name and designated per the requisition as Biliary stricture - brushings. Submitted for staining. B. Received is 1 ml of hazy-colorless fluid with tip labeled with the patient's name and and designated per the requisition as Biliary stricture - brush tip #1. Submitted for cytology and cell block preparation. C. Received is 1 ml of cloudy-red fluid with tip labeled with the patient's name and and designated per the requisition as Biliary stricture - brush tip #2. Submitted for cytology and cell block preparation. 06/15/2025 CPT: 29618n3,13291,97320l3 Signed (signature on file) Dr. Veronica Reyes MD 06/22/25 1431 Normal [facility] Comment on above: Performed By: #### L 100.0100, M100.651 #### [facility] [place], [address] Surgery Specimen Level Sis 06-14-2025 Surgery Specimen Level IV Patient Age/Sex Location Account Attending Physician CORIE LUGO 54/F MS3 [id number] Dr. Tika Casey DO Specimen: [id number] Received: 06/15/25 Status: AMBER Eaton Num: [id number] Spec Type: [facility] Dr: DO HETAL Hi OPERATION: ERCP PRE-OP DIAGNOSIS: Abdominal pain, biliary obstruction, mass of head of pancreas TISSUE SUBMITTED: A- Biliary stricture - spy bite MICROSCOPIC DIAGNOSIS A. Biliary stricture, spy bite, ERCP: - Non-diagnostic. - No tissue is recovered after processing. COMMENT Correlate with [id number]. MICROSCOPIC DESCRIPTION Slides are reviewed. GROSS DESCRIPTION A. Received in formalin labeled with the patient's name and date of . Designated as spy bite-biliary stricture is a <0.1 cm geoff of apparent tissue. Entirely submitted in 1 cassette. Specimen unlikely to survive processing. [place] 06/15/2025 CPT:55711 Patient Age/Sex Location Account Attending Physician CORIE LUGO 54/F MS3 [id number] Dr. Tika Casey, DO Signed (signature on file) Dr. Veronica Reyes MD 06/20/25 1243 [facility] Comment on above: Performed By: #### L 100.0100, M100.651 #### [facility] Laboratory [address] [place], [address] Abdomen/Pelvis W IV Cont ONL Yon 06-13-2025 Abdomen/Pelvis W IV Cont ONLY [facility] Imaging Services [address] [place] [address] Abdomen/Pelvis W IV Cont ONLY MR#: [id number] Acct: [id number] Name: CORIE LUGO Rep #: [id number] : 1970 F 54 From: Moe haile MD PCP: Dr. Joshua Whitlock MD Status: REG ER Study: Abdomen/Pelvis W IV Cont ONLY Date of Exam: Exam# [id number] Ordering Dr: Debi Eckert DO PROCEDURE: ABDOMEN/PELVIS W IV CONT [...] Findings suggestive of small gallstones. Reading Location: [facility] CC: Dr. Debi Eckert DO; Dr. Joshua Whitlock MD Cargo Service Supervisor: Signed Normal [facility] Absolute lymphocyte countOrd ered By: ED PROVIDER on 06-13-2025 Lymphocytes Auto (Unsp spec) [#/Vol] 2.61 10*3/uL 0.83-4.51 [facility] Absolute neutrophil countOrd ered By: ED PROVIDER on 06-13-2025 Neutrophils (Bld) [#/Vol] 5.7 10*3/uL 2.0-7.7 [facility] Amorphous sediment detection in urine sediment by light microscopyOrdered By: Debi Eckert on 06-13-2025 Amorphous sediment LM Ql (Urine sed) 3+ URATE [facility] Anion gap in Serum or Plasma Ordered By: ED PROVIDER on 06-13-2025 Anion gap [Moles/Vol] 14 mmol/L 5-15 [facility] Automated lymphocyte count a s percentage of total leukocytesOrdered By: ED PROVIDER on 06-13-2025 Lymphocytes/100 WBC Auto (Unsp spec) 27.7 % 19-41 [facility] BUN/creatinine ratioOrdered By: ED PROVIDER on 06-13-2025 Urea nitrogen/Creatinine [Mass ratio] 19.8 mg/mg 10-20 [facility] Basophil percentageOrdered B y: ED PROVIDER on 06-13-2025 Basophils/100 WBC (Bld) 0.8 % 0-1 [facility] Bilirubin Test strip Ql (U)O rdered By: Debi Eckert on 06-13-2025 Bilirubin Ql (U) 6 mg/dL High Negative [facility] Comment on above: COLOR OF URINE MAY A FFECT DIPSTICK RESULTS. Bilirubin, totalOrdered By: ED PROVIDER on 06-13-2025 Bilirubin [Mass/Vol] 5.65 mg/dL High 0.00-1.30 [facility] CBC W/Diff, Automatedon 06-04 Absolute Lymph 2.61 X10 3/uL Normal 0.83-4.51 [facility] Comment on above: Performed By: #### L 100.0100, L501.2450, L500.4050 #### [facility] Laboratory [address] [place], [address] Absolute Neut 5.7 X10 3/uL Normal 2.0-7.7 [facility] Comment on above: Performed By: #### L 100.0100, L501.2450, L500.4050 #### [facility] Laboratory [address] [place], [address] Basophils/100 WBC (Bld) 0.8 % Normal 0-1 [facility] Comment on above: Performed By: #### L 100.0100, L501.2450, L500.4050 #### [facility] [address] [place], [address] Eosinophils/100 WBC (Bld) 1.8 % Normal 0-5 [facility] Comment on above: Performed By: #### L 100.0100, L501.2450, L500.4050 #### [facility] [address] [place], [address] Erythrocyte distribution width (RBC) [Ratio] 16.0 % High 11.6-14.6 [facility] Comment on above: Performed By: #### L 100.0100, L501.2450, L500.4050 #### [facility] [address] [place], [address] Hematocrit (Bld) [Volume fraction] 40.6 % Normal 37-47 [facility] Comment on above: Performed By: #### L 100.0100, L501.2450, L500.4050 #### [facility] [address] [place], [address] Hemoglobin (Bld) [Mass/Vol] 13.6 g/dL Normal 12.0-15.0 [facility] Comment on above: Performed By: #### L 100.0100, L501.2450, L500.4050 #### [facility] [address] [place], [address] IG% 0.300 Normal 0.0-0.9 [facility] Comment on above: Result Comment: IG% - Immature Granulocytes (promyelocytes, myelocytes and metamyelocytes) > 1% indicates that a LEFT SHIFT is Present. Performed By: #### L 100.0100, L501.2450, L500.4050 #### [facility] [address] [place], [address] Lymphocytes/100 WBC (Bld) 27.7 % Normal 19-41 [facility] Comment on above: Performed By: #### L 100.0100, L501.2450, L500.4050 #### [facility] [address] [place], [address] MCH (RBC) [Entitic mass] 28.2 pg Normal 27.0-32.0 [facility] Comment on above: Performed By: #### L 100.0100, L501.2450, L500.4050 #### [facility] [address] [place], [address] MCHC (RBC) [Mass/Vol] 33.5 g/dL Normal 32-36 [facility] Comment on above: Performed By: #### L 100.0100, L501.2450, L500.4050 #### [facility] [address] [place], [address] MCV (RBC) [Entitic vol] 84.2 fL Normal 81-99 [facility] Comment on above: Performed By: #### L 100.0100, L501.2450, L500.4050 #### [facility] [address] [place], [address] Monocytes/100 WBC (Bld) 8.7 % Normal 0-10 [facility] Comment on above: Performed By: #### L 100.0100, L501.2450, L500.4050 #### [facility] [address] [place], [address] Neutrophils/100 WBC (Bld) 60.7 % Normal 47-70 [facility] Comment on above: Performed By: #### L 100.0100, L501.2450, L500.4050 #### [facility] [address] [place], [address] Nucleated RBC (Bld) [#/Vol] 0 10*3/uL Normal 0-5 [facility] Comment on above: Performed By: #### L 100.0100, L501.2450, L500.4050 #### [facility] [address] [place], [address] Platelet mean volume (Bld) [Entitic vol] 12.1 fL High 6.2-12.0 [facility] Comment on above: Performed By: #### L 100.0100, L501.2450, L500.4050 #### [facility] [address] [place], [address] Platelets (Bld) [#/Vol] 352 10*3/uL Normal 150-450 [facility] Comment on above: Performed By: #### L 100.0100, L501.2450, L500.4050 #### [facility] [address] [place], [address] RBC (Bld) [#/Vol] 4.82 10*6/uL Normal 4.2-5.4 [facility] Comment on above: Performed By: #### L 100.0100, L501.2450, L500.4050 #### [facility] [address] [place], [address] RDW SD 49.0 fl High 35.1-43.9 [facility] Comment on above: Performed By: #### L 100.0100, L501.2450, L500.4050 #### [facility] [address] [place], [address] WBC (Bld) [#/Vol] 9.4 10*3/uL Normal 4.4-11.0 [facility] Comment on above: Performed By: #### L 100.0100, L501.2450, L500.4050 #### [facility] [address] [place], [address] Carbon dioxide, total [Moles /volume] in Central venous bloodOrdered By: ED PROVIDER on 06-13-2025 CO2 [Moles/Vol] 20.7 mmol/L Low 21.0-32.0 [facility] Chloride assayOrdered By: ED PROVIDER on 06-13-2025 Chloride [Moles/Vol] 104 mmol/L 98-108 [facility] Comprehensive Metabolic Prof ilon 06-13-2025 ALT [Catalytic activity/Vol] 1069 U/L High <=34 [facility] Comment on above: Performed By: #### L 100.0100, L501.2450, L500.4050 #### [facility] [address] [place], [address] Emergency Department Summary on 06-13-2025 Emergency Department Summary [facility] Medical Records Department [address] [place] [address] Emergency Department Summary 06/13/25 MR#: [id number] Acct: [id number] Name: CORIE LUGO DONOVAN Rep #: [id number] : 1970 54 From: Debi Eckert DO PCP: Dr. Joshua Whitlock MD Status:ADM IN Location: [place] [address]-1 HPI HPI - GI History of Present Illness Chief Complaint: Abd Pain Detail of Chief Complaint: Abdominal pain Informant: patient Narrative Narrative: Patient presents with abdominal pain that she has had for several months. Initially she had lost 30 pounds with it. Pain then kind of resolved and went away after a while was treated for possible GERD. Pain came back about a week and a half ago when she lost about 10 pounds since then. Not having pain in her right side. Urine is dark. She has no urinary symptoms otherwise. Denies dysuria urgency or frequency. She said no fever chills or sweats. Pain made worse by eating. No prior abdominal surgeries. PFSH PFSH Medical History Post-menopausal Wears glasses Anxiety Arthritis Easy bruising Migraine headache Shortness of breath on exertion Smoker History of edema History of pain when walking Home Medications ???Medication ???Instructions ???Recorded ???Last Taken ???Type cholecalciferol (vitamin D3) 25 25 mcg PO DAILY 08/29/24 09/24/24 History mcg (1,000 unit) capsule (Vitamin D3) diclofenac sodium 75 mg 75 mg PO BID 08/29/24 09/20/24 His tory tablet,delayed release loratadine 10 mg capsule 10 mg PO DAILY 08/29/24 09/20/24 H istory melatonin 3 mg capsule 3 mg PO QHS 08/29/24 Unknown Histo ry sumatriptan succinate 50 mg tablet 50 mg PO PRN PRN migraine headac he 08/29/24 Unknown History tramadol 50 mg tablet 50 - 100 mg PO Q6H PRN PRN pain Unknown History turmeric 400 mg capsule 1,000 mg PO DAILY 08/29/24 4 History aspirin 81 mg capsule 81 mg PO BID 09/25/24 09/24/24 His tory Allergy/AdvReac Type Severity Reaction Status Date / Time No Known Allergies Allergy Verified 09/25/24 06:02 Surgical History Hx of total knee arthroplasty Hx of arthroscopic knee surgery History of endometrial ablation History of ankle surgery History of carpal tunnel surgery of right wrist Hx of foot surgery Hx of tubal ligation Social History Smoking Status: Current every day smoker tobacco type: cigarettes ROS ROS ED ROS Narrative Weight loss Review of Systems ROS Unobtainable: other Constitutional Constitutional ED: Reports lethargy; Denies chills, fever(s), sweats or weight loss Eyes Eyes: Denies blurry vision, change in vision or diplopia ENT ENT ED: Denies rhinorrhea or sore throat Cardiovascular Cardiovascular: Denies chest pain, orthopnea or racing heartbeat Respiratory/Chest Respiratory/Chest: Denies cough, dyspnea, dyspnea on exertion, orthopnea or sputum Gastrointestinal Gastrointestinal: Reports abdominal pain and nausea; Denies diarrhea or vomiting Genitourinary Genitourinary ED: Denies dysuria, hematuria or urinary frequency Musculoskeletal Musculoskeletal: Denies arthralgias, back pain, myalgias or neck pain Integumentary Denies abscess, Abrasions or rash Neurologic Neurologic: Denies headache(s) or weakness Psychiatric Psychiatric: Denies anxiety, depression or suicidal thoughts Endocrine Endocrinology: Denies polydipsia, polyphagia or polyuria Hematologic/Lymphatic Hematologic/Lymphatic: Denies easy bleeding, easy bruising or lymphadenopathy Allergic/Immunologic Allergic/Immunologic ED: Denies mouth swelling, tongue swelling or urticaria EXAM Physical Exam Const Vital Signs: 06/13/25 13:36 Temperature 97.6 F L Temperature Source Temporal Pulse Rate 79 Respiratory Rate 16 Blood Pressure 123/77 H Blood Pressure Mean 92 Pulse Ox 98 Oxygen Delivery Method Room Air Positive well nourished and well developed General Appearance ED: well developed and NAD HEENT Reports TM's clear and moist mucous membranes HEENT Narrative: Mild scleral icterus normocephalic and atraumatic; Negative for trauma or tenderness Tympanic Membrane ED: Yes TM's clear Eyes PERRL and EOMs intact bilaterally General Eye ED: Yes scleral icterus; Negative for pale conjunctiva Neck no lymphadenopathy, supple and no JVD General: Negative for tenderness Chest Wall inspection of chest normal and palpation of chest normal Chest: Negative for tenderness Resp normal respiratory effort and clear to auscultation bilaterally Effort and Inspection: Negative for respiratory distress or pain with movement Auscultation: Negative for rhonchi, wheezes or diminished eliana (more content not included)... Normal [facility] Eosinophil percentageOrdered By: ED PROVIDER on 06-13-2025 Eosinophils/100 WBC (Bld) 1.8 % 0-5 [facility] Erythrocyte distribution wid th ratioOrdered By: ED PROVIDER on 06-13-2025 Erythrocyte distribution width (RBC) [Ratio] 16.0 % High 11.6-14.6 [facility] Erythrocyte distribution wid th standard deviationOrdered By: ED PROVIDER on 06-13-2025 Erythrocyte distribution width (RBC) [Ratio] 49.0 fl High 35.1-43.9 [facility] Gallbladderon 06-13-2025 Gallbladder [facility] Imaging Services [address] [place], [place] [id number] Gallbladder MR#: [id number] Acct: [id number] Name: CORIE LUGO Rep #: [id number] : 1970 F 54 From: Patricio Yeager MD PCP: Dr. Joshua Whitlock MD Status: ADM IN Study: Gallbladder Date of Exam: 06/13/25 Exam# [id number] Ordering Dr: Deib Eckert DO PROCEDURE: GALLBLADDER 06/13/2025 REASON FOR [...] intrahepatic biliary ducts. Normal gallbladder. Reading Location: [facility] CC: Dr. Debi Eckert DO; Dr. Joshua Whitlock MD Cargo Service Supervisor: Signed Normal [facility] Glomerular filtration rate ( GFR) estimation/1.73 sq m using serum, plasma, or whole bOrdered By: ED PROVIDER on 06-13-2025 GFR/1.73 sq M.predicted among non-blacks MDRD (S/P/Bld) [Vol rate/Area] 65 mL/min/{1.73_m2} >60 [facility] Comment on above: mL/min/1.73m2 CKD-EP I Creatinine Equation (2020) [facility] H[facility]P Exam - Hospitalist [facility] Medical Records Department [address] [place] [address] H P Exam - Hospitalist 06/13/25 1655 MR#: [id number] Acct: [id number] Name: CORIE LUGO Rep #: [id number] : 1970 54 From: Maynor Harvinder HARVEY PCP: Dr. Joshua Whitlock MD Status:ADM IN [place] [facility] [id number] HPI - General General Date of Admission: 06/13/25 Date of Service: 06/13/25 Chief Complaint: Abdominal pain with jaundice HPI Narrative CORIE LUGO, is a 54 F who presented to [facility] ED on 06/13/2025 with abdominal pain and jaundice. Patient has minimal past medical history significant for only current everyday smoker and class I obesity. She started to have upper abdominal/epigastric pain about 3 months ago. She has significant pain and discomfort with eating and has had very poor p.o. intake over that time and has lost approximately 30 pounds. Over the past several days she has noticed that her urine has become more dark. She was scheduled to see Dr. Wallace in the office for consultation this coming Wednesday, but given her ongoing symptoms she decided to come into the ED for further evaluation. Labs notable for total bilirubin 5.65, AST 507, ALT 1069, alk phos 886. CT abdomen pelvis showed dilated intrahepatic biliary ducts in the common bile duct down to the head of the pancreas with a suspected 14 mm mass in the head of the pancreas; was also noted to have small gallstones. Right upper quadrant ultrasound showed normal gallbladder, moderate intrahepatic biliary dilatation, normal gallbladder, no other concerning findings. Case was discussed with Dr. Wilks who noted no surgical needs at this time. Case was then discussed with Dr. Wallace who was agreeable to admitting the patient with plan for ERCP for further evaluation. Hospitalist was then contacted for admission. I saw the patient at bedside in the ED, was present. Patient was mildly fatigued appearing but otherwise sitting back fairly comfortably in her chair, conversing normally and in no acute distress. Denied any significant abdominal pain or discomfort currently. Denies any fevers or chills. No other acute concerns at this time. Will be admitted for further management. [facility] Medical History Post-menopausal Wears glasses Anxiety Arthritis Easy bruising Migraine headache Shortness of breath on exertion Smoker History of edema History of pain when walking Home Medications ???Medication ???Instructions ???Recorded ???Last Taken ???Type cholecalciferol (vitamin D3) 25 25 mcg PO DAILY 08/29/24 09/24/24 History mcg (1,000 unit) capsule (Vitamin D3) diclofenac sodium 75 mg 75 mg PO BID 08/29/24 09/20/24 His tory tablet,delayed release loratadine 10 mg capsule 10 mg PO DAILY 08/29/24 09/20/24 H istory melatonin 3 mg capsule 3 mg PO QHS 08/29/24 Unknown Histo ry sumatriptan succinate 50 mg tablet 50 mg PO PRN PRN migraine headac he 08/29/24 Unknown History omeprazole 20 mg capsule,delayed 20 mg PO DAILY 06/13/25 Unknown Hi story release sucralfate 1 gram tablet 1 g PO 4X/DAY 06/13/25 Unknown His tory Allergy/AdvReac Type Severity Reaction Status Date / Time No Known Allergies Allergy Verified 09/25/24 06:02 Surgical History Hx of total knee arthroplasty Hx of arthroscopic knee surgery History of endometrial ablation History of ankle surgery History of carpal tunnel surgery of right wrist Hx of foot surgery Hx of tubal ligation Social History Smoking Status: Current every day smoker tobacco type: cigarettes ROS Constitutional Constitutional: Reports anorexia and change in weight; Denies chills, fatigue, fever(s) or weakness Cardiovascular Cardiovascular: Denies chest pain Respiratory/Chest Respiratory/Chest: Denies shortness of breath at rest Gastrointestinal Gastrointestinal: Reports abdominal pain and nausea; Denies constipation, diarrhea or vomiting Genitourinary Genitourinary: Denies dysuria Musculoskeletal Musculoskeletal: Denies arthralgias or myalgias Vital Signs Vital Signs Vital Signs: 06/13/25 13:36 Temperature 97.6 F L Temperature Source Temporal Pulse Rate 79 Respiratory Rate 16 Blood Pressure 123/77 H Blood Pressure Mean 92 Pulse Ox 98 Oxygen Delivery Method Room Air Weight Weight: 84.867 kg Body Mass Index (BMI) 34.2 Physical Exam Const alert, oriented x3 and no apparent distress Constitutional Narrative: Middle-aged female, class I obesity, mildly fatigued appearing but otherwise sitting back comfortably in bedside chair, conversing normally, in no acute distress. General Appearance: cooperative and (more content not included)... Normal [facility] Hematocrit Auto (Bld) [Volum e fraction]Ordered By: ED PROVIDER on 06-13-2025 Hematocrit (Bld) [Volume fraction] 40.6 % 37-47 [facility] Hemoglobin measurementOrdere d By: ED PROVIDER on 06-13-2025 Hemoglobin (Bld) [Mass/Vol] 13.6 g/dL 12.0-15.0 [facility] Immature granulocytes/100 WB C Auto (Bld)Ordered By: ED PROVIDER on 06-13-2025 Immature granulocytes/100 WBC (Bld) 0.300 % 0.0-0.9 [facility] Comment on above: IG% - Immature Granu locytes (promyelocytes, myelocytes and metamyelocytes) > 1% indicates that a LEFT SHIFT is Present. Ketones Test strip Ql (U)Ord ered By: Debi Eckert on 06-13-2025 Ketones Ql (U) 15 mg/dl High Negative [facility] Laboratory - Chemistry and C hemistry - challengeOrdered By: ED PROVIDER on 06-13-2025 AST [Catalytic activity/Vol] 507 U/L High <32 [facility] Comment on above: Hemolysis present, R esults could be affected. Lipaseon 06-13-2025 Lipase [Catalytic activity/Vol] 12 U/L Low 13-75 [facility] Comment on above: Result Comment: Sameera green note: LIPASE revised reference range effective 23. New Lipase methodology. Expected to produce lower values than the previous assay method. NEW Reference Range: 13 - 75 U/L Performed By: #### L 100.0100, L501.2450, L500.4050 #### [facility] Laboratory [address] [place], [place], [id number] Lipase measurementOrdered By : ED PROVIDER on 06-13-2025 Lipase [Catalytic activity/Vol] 12 U/L Low 13-75 [facility] Comment on above: Please note:LIPASE r evised reference range effective 23. New Lipase methodology. Expected to produce lower values than the previous assay method. NEW Reference Range: 13 - 75 U/L MCV (mean corpuscular volume ) determinationOrdered By: ED PROVIDER on 06-13-2025 MCV (RBC) [Entitic vol] 84.2 fL 81-99 [facility] Mean corpuscular hemoglobin (MCH) determinationOrdered By: ED PROVIDER on 06-13-2025 MCH (RBC) [Entitic mass] 28.2 pg 27.0-32.0 [facility] Mean corpuscular hemoglobin concentration (MCHC) determinationOrdered By: ED PROVIDER on 06-13-2025 MCHC (RBC) [Mass/Vol] 33.5 g/dL 32-36 [facility] Mean platelet volume determi nationOrdered By: ED PROVIDER on 06-13-2025 Platelet mean volume (Bld) [Entitic vol] 12.1 fL High 6.2-12.0 [facility] Microscopic analysis of urin e for red blood cells (RBC)Ordered By: Debi Eckert on 06-13-2025 Microscopic analysis of urine for red blood cells (RBC) 0-5 SEEN /hpf 0-5 [facility] Monocyte percentageOrdered B y: ED PROVIDER on 06-13-2025 Monocytes/100 WBC (Bld) 8.7 % 0-10 [facility] Mucus LM Ql (Urine sed)Order ed By: Debi Eckert on 06-13-2025 Mucus Ql (Urine sed) 0 SEEN /hpf [facility] Neutrophil percentageOrdered By: ED PROVIDER on 06-13-2025 Neutrophils/100 WBC (Bld) 60.7 % 47-70 [facility] Nitrite Test strip Ql (U)Ord ered By: Debi Eckert on 06-13-2025 Nitrite Ql (U) Negative Negative [facility] Nucleated red blood cell per centageOrdered By: ED PROVIDER on 06-13-2025 Nucleated RBC/100 WBC (Bld) [Ratio] 0 % 0-5 [facility] Platelet countOrdered By: ED PROVIDER on 06-13-2025 Platelets (Bld) [#/Vol] 352 10*3/uL 150-450 [facility] Potassium measurement (mass/ volume)Ordered By: ED PROVIDER on 06-13-2025 Potassium (Unsp spec) [Mass/Vol] 4.2 mmol/L 3.3-5.1 [facility] Comment on above: Hemolysis present, R esults could be affected. Protein Test strip Ql (U)Ord ered By: Debi Eckert on 06-13-2025 Protein Ql (U) 100 mg/dl High Negative [facility] RBC Auto (Bld) [#/Vol]Ordere d By: ED PROVIDER on 06-13-2025 RBC (Bld) [#/Vol] 4.82 10*6/uL 4.2-5.4 [facility] Serum creatinine measurement (mass/volume)Ordered By: ED PROVIDER on 06-13-2025 Creatinine [Mass/Vol] 1.01 mg/dL 0.70-1.20 [facility] Comment on above: Icterus present, Res ults may be affected. Serum globulin measurementOr dered By: ED PROVIDER on 06-13-2025 Globulin (S) [Mass/Vol] 3.3 g/dL 2.2-4.2 [facility] Serum glucose measurement (m ass/volume)Ordered By: ED PROVIDER on 06-13-2025 Glucose [Mass/Vol] 99 mg/dL 70-99 [facility] Serum or plasma alanine giles otransferase (ALT) measurementOrdered By: ED PROVIDER on 06-13-2025 ALT [Catalytic activity/Vol] 1069 U/L High <35 [facility] Serum or plasma albumin jen urement (mass/volume)Ordered By: ED PROVIDER on 06-13-2025 Albumin [Mass/Vol] 4.0 g/dL 3.5-5.0 [facility] Serum or plasma albumin/glob ulin mass ratioOrdered By: ED PROVIDER on 06-13-2025 Albumin/Globulin [Mass ratio] 1.2 {ratio} 0.9-2.4 [facility] Serum or plasma alkaline shagufta sphatase measurementOrdered By: ED PROVIDER on 06-13-2025 ALP [Catalytic activity/Vol] 886 U/L High 35-104 [facility] Serum or plasma calcium jen urement (mass/volume)Ordered By: ED PROVIDER on 06-13-2025 Calcium [Mass/Vol] 10.0 mg/dL 7.6-11.0 [facility] Serum or plasma urea nitroge n measurement (mass/volume)Ordered By: ED PROVIDER on 06-13-2025 Urea nitrogen [Mass/Vol] 20 mg/dL High 4-19 [facility] Sodium levelOrdered By: ED Lissy CUADRA on 06-13-2025 Sodium [Moles/Vol] 139 mmol/L 133-145 [facility] Squamous epithelial cells de tection in urine sediment by light microscopyOrdered By: Debi Eckert on 06-13-2025 Epithelial cells.squamous LM Ql (Urine sed) 5-10 SEEN /hpf - [facility] Total proteinOrdered By: ED PROVIDER on 06-13-2025 Protein [Mass/Vol] 7.3 g/dL 5.9-8.4 [facility] Urinalysis, Completeon 06-13 AMORPHOUS 3+ URATE Normal [facility] Comment on above: Order Comment: COLOR OF URINE MAY AFFECT DIPSTICK RESULTS.BILINGUAL MANAGER TO SPECIFY Performed By: #### L 400.0001 ####[facility] [address] [facility] [address] RBC 0-5 SEEN Normal 0-5 [facility] Comment on above: Order Comment: COLOR OF URINE MAY AFFECT DIPSTICK RESULTS.BILINGUAL MANAGER TO SPECIFY Performed By: #### L 400.0001 ####[facility] [address] [place], [address] WBC 10-25 SEEN Normal 0-5 [facility] Comment on above: Order Comment: COLOR OF URINE MAY AFFECT DIPSTICK RESULTS.BILINGUAL MANAGER TO SPECIFY Performed By: #### L 400.0001 ####[facility] [address] [place], [address] EPI,SQUAMOUS 5-10 SEEN Normal 5-10 [facility] Comment on above: Order Comment: COLOR OF URINE MAY AFFECT DIPSTICK RESULTS.BILINGUAL MANAGER TO SPECIFY Performed By: #### L 400.0001 ####[facility] [address] [place], [address] BACTERIA 0 SEEN Normal None Seen [facility] Comment on above: Order Comment: COLOR OF URINE MAY AFFECT DIPSTICK RESULTS.BILINGUAL MANAGER TO SPECIFY Performed By: #### L 400.0001 ####[facility] [address] [place], [place], [id number] Mucus Ql (Urine sed) 0 SEEN Normal [facility] Comment on above: Order Comment: COLOR OF URINE MAY AFFECT DIPSTICK RESULTS.BILINGUAL MANAGER TO SPECIFY Performed By: #### L 400.0001 ####[facility] [address] [place], [place], [id number] Urine clarityOrdered By: Elvira Eckert on 06-13-2025 Clarity (U) Clear Clear [facility] Urine color determinationOrd ered By: Debi Eckert on 06-13-2025 Color (U) Lynn Yellow [facility] Urine glucose detectionOrder ed By: Debi Eckert on 06-13-2025 Glucose Ql (U) Normal mg/dl Normal [facility] Urine leukocyte esterase det ection by dipstickOrdered By: Debi Eckert on 06-13-2025 Leukocyte esterase Test strip Ql (U) 500 /ul High Negative [facility] Urine pHOrdered By: Debi Gonzalez gur on 06-13-2025 pH (U) 5.0 [pH] 5.0 - 8.0 [facility] Urine sediment bacteria coun t by microscopy (number/high power field)Ordered By: Debi Eckert on 06-13-2025 Bacteria LM.HPF (Urine sed) [#/Area] 0 /[HPF] None Seen [facility] Urine specific gravity measu rementOrdered By: Debi Eckert on 06-13-2025 Specific gravity (U) [Rel density] 1.020 1.002-1.03 0 [facility] Urine urobilinogen measureme ntOrdered By: Debi Eckert on 06-13-2025 Urobilinogen Ql (U) 4 mg/dl High Normal [facility] White blood cell (WBC) count Ordered By: ED PROVIDER on 06-13-2025 WBC (Bld) [#/Vol] 9.4 10*3/uL 4.4-11.0 [facility] White blood cell countOrdere d By: Debi Eckert on 06-13-2025 White blood cell count 10-25 SEEN /hpf 0-5 [facility] Bedside Glucoseon 09-25-2024 FINGERSTICK GLU 87 mg/dL Normal 74-106 [facility] Comment on above: Result Comment: DAVID STOCK OF PATIENT CARE PER NURSING PROTOCOL Performed By: #### L 501.080 ####[facility] [address] [place], [place], [id number] Decalcification bone/plaqueo n 09-25-2024 Decalcification bone/plaque Patient Age/Sex Location Account Attending Physician CORIE LUGO 54/F [facility] [id number] Dr. Rudy Sullivan MD Specimen: [id number] Received: 09/25/24 Status: AMBER Eaton Num: [id number] Spec Type: TOTAL KNEE Subm Dr: Dr. Rudy Sullivan MD HEADER OPERATION: MARCO, robotic assisted left total knee arthroplasty PRE-OP DIAGNOSIS: Severe left knee osteoarthritis with varus deformity TISSUE SUBMITTED: Left patella and knee resections MICROSCOPIC DIAGNOSIS Bone and soft tissue, left knee, total knee replacement/resection: Pieces of bone with degenerative osteoarthritic changes. [...] prominent osteophyte formation, eburnation and bone erosion. Associate Software Engineer sections are submitted in two cassettes as follows: 1 - soft tissue, 2 and 3 - bone after decalcification. /[place]:aye 09/25/24 TC:5 CPT: 00690, 49250 Patient Age/Sex Location Account Attending Physician CORIE LUGO DONOVAN 54/F [facility] [id number] Dr. Rudy Sullivan MD Signed (signature on file) Dr. Wally Ryan MD 10/02/24 1116 Normal [facility] Comment on above: Performed By: #### P DEC ####[facility] [address] [facility] [place], [address] Knee 1 or 2 Viewson 09-25-20 24 Knee 1 or 2 Views [facility] Imaging Services [address] [place], [place] [id number] Knee 1 or 2 Views MR#: [id number] Acct: [id number] Name: CORIE LUGO DONOVAN Rep #: [id number] : 1970 F 54 From: Ruslan Marie PCP: Dr. Joshua Whitlock MD Status: [facility] Study: Knee 1 or 2 Views Date of Exam: 09/25/24 Exam# [id number] Ordering Dr: Rudy Sullivan MD [id number] INDICATION: tka -- in PACU EXAMINATION/TECHNIQUE: X-RAY - LEFT XR Knee 1 or 2 Views 2 VIEWS COMPARISON: Prior study dated: 09/06/2024 FINDINGS: SOFT TISSUES: Postoperative changes involving the soft tissues. Skin nima in place. No radiopaque foreign body. BONES/JOINTS: [...] Joshua Whitlock MD; Dr. Rudy Sullivan MD Cargo Service Supervisor: Signed [facility] MR/POSTOP.[facility] 09-25-2024 MR/POSTOP.[facility] Medical Records Department [address] [place] [address] Anesthesia Postop Eval I 09/25/24 1014 MR#: [id number] Acct: [id number] Name: CORIE LUGO Rep #: [id number] : 1970 54 From: Lio Rao PCP: Dr. Joshua Whitlock MD Status:REG [facility] Y Race: C Location: [place] [address] Anesthesia: Postop Eval I Current Vital Signs [...] Lio Graham Signature: Date CC: Signed Normal [facility] MR/[id number] 09-25-2024 MR/POSTOPAN2 [facility] Medical Records Department [address] [place] [address] Anesthesia Postop Eval II 09/25/24 1014 MR#: [id number] Acct: [id number] Name: CORIE LUGO DONOVAN Rep #: [id number] : 1970 54 From: Lio Rao PCP: Dr. Joshua Whitlock MD Status:REG [facility] Y Race: C Location: [place] [address] Anesthesia Postop Eval I Sum Postop Eval Completion status Anesthesia document: Postop Eval 1 completed: Yes Anesthesia Postop Eval I Summary Anesthesia Postop Eval I Summary: Anesthesia Postop Eval I: Assessment Summary Airway patent Yes 09/25/24 10:14 COLOR PASTE MIXER.MDOT Spontaneous unlabored Yes 09/25/24 10:14 COLOR PASTE MIXER.MDOT respirations Mental status Awake,Calm 09/25/24 10:14 COLOR PASTE MIXER.MDOT nausea No 09/25/24 10:14 COLOR PASTE MIXER.MDOT Vomiting No 09/25/24 10:14 COLOR PASTE MIXER.MDOT Anesthesia Postop Eval I: Fluid Summary Crystalloid volume administer 1,000 09/25/24 10:14 COLOR PASTE MIXER.MDOT (ml) Colloids volume administered ( ml) Blood Product volume administered (ml) Total IV fluid infused 1,000 09/25/24 10:14 COLOR PASTE MIXER.MDOT Anesthesia Postop Eval I: Summary Notes Anesthesia Complication No 09/25/24 10:14 COLOR PASTE MIXER.MDOT Anesthesia Complication Comment: Post-operative progress note Anesthesia: Postop Eval II Evaluation Mental status: Awake and Calm Pain Level: 0 nausea: No Vomiting: No Complications Anesthesia Complication: No 09/25/24 1015 Date Lio Graham Signature: Date CC: Signed Normal [facility] Operative Reporton 4 Operative Report [facility] Medical Records Department [address] [place] [address] Operative Report 09/25/24 0857 MR#: [id number] Acct: [id number] Name: CORIE LUGO Rep #: [id number] : 1970 54 From: Rudy Sullivan MD PCP: Dr. Joshua Whitlock MD Status:REG [facility] Location: [place] [address] Operative Report (Standard) Operative Information Date of Procedure: 09/25/24 Pre-Operative Diagnosis: Left knee primary osteoarthritis Post-Operative Diagnosis: Left knee primary osteoarthritis Surgery/Procedure Performed: Left total knee replacement legislative correspondent: Yes Civil Designer: Matheus Castelan Tasks completed by heel sprayer first: Other (See operative report) Additional assisted living assistant?: No Type of Anesthesia: Spinal RN [...] 08:07 Procedure Stop Time: 09:17 Select all DRAINS/GRAFTS/IMPLANTS that apply: Prosthetic device (See body of operative report) Prosthetic device details: See body of operative report Special Medications: Standard total joint antibiotics Estimated Blood Loss: 50 mL Fluids Replaced: 1000 mm crystalloid Specimen collected: Yes Description of specimen(s) removed: Bony cuts Description of surgery: Implants used: 1. [place] size 2 triathlon cruciate retaining distal femoral press-fit component 2. Tolu size 2 press-fit tritanium tibial baseplate 3. Tolu X3 10 mm polyethylene 4. Tolu X3 [...] size 2 (more content not included)... Normal [facility] MRSA/SAID NASAL SCREENon MRSA+SAID SCRN Reason for Exam: PRE OP MRSA MRSA Negative S. AUREUS S. aureus Negative Normal [facility] Comment on above: Performed By: #### L 100.0100, M100.651 #### [facility] Laboratory [address] [facility] [place], [address] 12 Lead EKGon 09-06-2024 12 Lead EKG [facility] Cardiovascular Services [address] [place] [address] 12 Lead EKG 09/06/24 0753 MR#: [id number] Acct: [id number] Name: CORIE LUGO Rep #: [id number] : 1970 54 From: Itzel Perez MD Attending Dr: Dr. Rudy Sullivan MD Status: PRE [facility] Ordering Dr: Rudy Sullivan MD Date: 09/06/24 Location: [facility] Sex: F C Admitted: Test Reason : PREOP Blood Pressure : */* mmHG Vent. Rate : 76 BPM Atrial Rate : 76 BPM P-R Int : 136 ms QRS Dur : 76 ms QT Int : 370 ms P-R-T Axes : 59 0 36 degrees QTcB Int : 416 ms Normal sinus rhythm Normal ECG Confirmed by Itzel Perez ([id number]), film or videotape editor JOSEY GALVAN ([id number]) on 09/06/2024 8:28:41 AM Referred By: Rudy Sullivan Confirmed By: Itzel Perez 09/06/24 0828 Date Itzel Perez MD CC: Dr. Joshua Whitlock MD; Dr. Rudy Sullivan MD Signed Normal [facility] CBC W/Diff, Automatedon 12-0 Absolute Lymph 2.06 X10 3/uL Normal 0.83-4.51 [facility] Comment on above: Performed By: #### L 100.0100, M100.651 #### [facility] Laboratory [address] [place], [address] Absolute Neut 9.7 X10 3/uL High 2.0-7.7 [facility] Comment on above: Performed By: #### L 100.0100, M100.651 #### [facility] [address] [place], [address] Basophils/100 WBC (Bld) 0.5 % Normal 0-1 [facility] Comment on above: Performed By: #### L 100.0100, M100.651 #### [facility] [address] [place], [address] Eosinophils/100 WBC (Bld) 0.8 % Normal 0-5 [facility] Comment on above: Performed By: #### L 100.0100, M100.651 #### [facility] [address] [place], [address] Erythrocyte distribution width (RBC) [Ratio] 14.5 % Normal 11.6-14.6 [facility] Comment on above: Performed By: #### L 100.0100, M100.651 #### [facility] [address] [place], [address] Hematocrit (Bld) [Volume fraction] 44.2 % Normal 37-47 [facility] Comment on above: Performed By: #### L 100.0100, M100.651 #### [facility] [address] [place], [address] Hemoglobin (Bld) [Mass/Vol] 14.1 g/dL Normal 12.0-15.0 [facility] Comment on above: Performed By: #### L 100.0100, M100.651 #### [facility] [address] [place], [address] IG% 0.300 Normal 0.0-0.9 [facility] Comment on above: Result Comment: IG% - Immature Granulocytes (promyelocytes, myelocytes and metamyelocytes) > 1% indicates that a LEFT SHIFT is Present. Performed By: #### L 100.0100, M100.651 #### [facility] [address] [place], [address] Lymphocytes/100 WBC (Bld) 15.7 % Low 19-41 [facility] Comment on above: Performed By: #### L 100.0100, M100.651 #### [facility] [address] [place], [address] MCH (RBC) [Entitic mass] 27.8 pg Normal 27.0-32.0 [facility] Comment on above: Performed By: #### L 100.0100, M100.651 #### [facility] [address] [place], [address] MCHC (RBC) [Mass/Vol] 31.9 g/dL Low 32-36 [facility] Comment on above: Performed By: #### L 100.0100, M100.651 #### [facility] [address] [place], [address] MCV (RBC) [Entitic vol] 87.0 fL Normal 81-99 [facility] Comment on above: Performed By: #### L 100.0100, M100.651 #### [facility] [address] [place], [address] Monocytes/100 WBC (Bld) 8.3 % Normal 0-10 [facility] Comment on above: Performed By: #### L 100.0100, M100.651 #### [facility] [address] [place], [address] Neutrophils/100 WBC (Bld) 74.4 % High 47-70 [facility] Comment on above: Performed By: #### L 100.0100, .651 #### [facility] [address] [place], [address] Nucleated RBC (Bld) [#/Vol] 0 10*3/uL Normal 0-5 [facility] Comment on above: Performed By: #### L 100.0100, M1.651 #### [facility] [address] [place], [address] Platelet mean volume (Bld) [Entitic vol] 10.8 fL Normal 6.2-12.0 [facility] Comment on above: Performed By: #### L 100.0100, .65 #### [facility] [address] [place], [address] Platelets (Bld) [#/Vol] 347 10*3/uL Normal 150-450 [facility] Comment on above: Performed By: #### L 100.0100, .65 #### [facility] [address] [place], [address] RBC (Bld) [#/Vol] 5.08 10*6/uL Normal 4.2-5.4 [facility] Comment on above: Performed By: #### L 100.0100, M1.651 #### [facility] [address] [place], [address] RDW SD 46.6 fl High 35.1-43.9 [facility] Comment on above: Performed By: #### L 100.0100, M100.651 #### [facility] [address] [place], [address] WBC (Bld) [#/Vol] 13.1 10*3/uL High 4.4-11.0 [facility] Comment on above: Performed By: #### L 100.0100, M100.651 #### [facility] [address] [place], [address] Extremity Lower without Cont raon 09-06-2024 Extremity Lower without Contra [facility] Imaging Services [address] [place] [address] Extremity Lower without Contra MR#: [id number] Acct: [id number] Name: CORIE LUGO Rep #: [id number] : 1970 F 54 From: Slava Casey MD PCP: Dr. Joshua Whitlock MD Status: REG CLI Study: Extremity Lower without Contra Date of Exam: 11/07/23 Exam# [id number] Ordering Dr: Rudy Sullivan MD [id number] CT LEFT LOWER EXTREMITY WITH 3-D IMAGING [...] 14:58 EST Reading Location ID and State: [facility] / [place] , Service support , CC: Dr. Joshua Whitlock MD; Dr. Rudy Sullivan MD Cargo Service Supervisor: Signed Normal [facility] Magnesiumon 09-06-2024 Magnesium [Mass/Vol] 2.2 mg/dL Normal 1.6-2.6 [facility] Comment on above: Performed By: #### L 501.5200, L300.3900, L300.4310 ####[facility] [address] [place], [address] Partial Thromboplast Timeon 09-06-2024 aPTT Coag (Bld) [Time] 25.2 s Normal 24.1-36.2 [facility] Comment on above: Performed By: #### L 501.5200, L300.3900, L300.4310 ####[facility] [address] [place], [address] Prothrombin Time w/INRon INR Coag (PPP) [Relative time] 1.0 {INR} Normal [facility] Comment on above: Performed By: #### L 501.5200, [id number], L300.4310 ####[facility] [address] [place], [address] PT Coag (PPP) [Time] 12.9 s Normal 11.7-14.9 [facility] Comment on above: Performed By: #### L 501.5200, [id number], L300.4310 ####[facility] [address] [place], [address] COMPREHENS[facility] [place] 08-[facility]-2024 Albumin [Mass/Vol] 4.2 g/dL Normal 3.6-5.1 [facility] Comment on above: Performed By: #### 7 600, 02305, 41037 #### [facility] of [place] [address] [employer] [place] Supervisor: Landon Barriga MD Albumin/Globulin [Mass ratio] 1.8 {ratio} Normal 1.0-2.5 [facility] Comment on above: Performed By: #### 7 600, 85473, 55940 #### [facility] [place] [address] [employer] [place] Supervisor: Landon Barriga MD ALP [Catalytic activity/Vol] 81 U/L Normal 37-153 [facility] Comment on above: Performed By: #### 7 600, 00225, 84081 #### [facility] of [place] [address] [employer] [place] Supervisor: Landon Barriga MD ALT [Catalytic activity/Vol] 14 U/L Normal 6-29 [facility] Comment on above: Performed By: #### 7 600, 80056, 01350 #### [facility] of [place] [address] [place] Supervisor: Landon Barriga MD AST [Catalytic activity/Vol] 11 U/L Normal 10-35 [facility] Comment on above: Performed By: #### 7 600, 02441, 88888 #### [facility] of [place] [address] [employer] [place] Supervisor: Landon Barriga MD Bilirubin [Mass/Vol] 0.4 mg/dL Normal 0.2-1.2 [facility] Comment on above: Performed By: #### 7 600, 93477, 86091 #### [facility] of [address] [place] [address] [employer] Supervisor: Landon Barriga MD Calcium [Mass/Vol] 9.4 mg/dL Normal 8.6-10.4 [facility] Comment on above: Performed By: #### 7 600, 60260, 57045 #### [facility] of [address], [address] [place] [address] [employer] Supervisor: Landon Barriga MD Chloride [Moles/Vol] 106 mmol/L Normal 98-110 [facility] Comment on above: Performed By: #### 7 600, 78529, 77837 #### [facility] of [place] [address] [employer] [place] Supervisor: Landon Barriga MD CO2 [Moles/Vol] 24 mmol/L Normal 20-32 [facility] Comment on above: Performed By: #### 7 600, 43764, 72097 #### [facility] of [place] [address] [employer] [place] Supervisor: Landon Barriga MD Creatinine [Mass/Vol] 0.81 mg/dL Normal 0.50-1.[address] [facility] [address] [facility] Comment on above: Performed By: #### 7 600, 99833, 97922 #### [facility] of [place] [address] [place] Supervisor: Landon Barriga MD GFR/1.73 sq M.predicted among non-blacks MDRD (S/P/Bld) [Vol rate/Area] 85 mL/min/{1.73_m2} Normal > OR = 60 [facility] Comment on above: Performed By: #### 7 600, 77853, 83753 #### [facility] of [place] [address] [place] Supervisor: Landon Barriga MD Globulin (S) [Mass/Vol] 2.3 g/dL Normal 1.9-3.7 [facility] Comment on above: Performed By: #### 7 600, 39331, 46338 #### [facility] of [address], [address] [place] [address] [employer] Supervisor: Landon Barriga MD Glucose [Mass/Vol] 95 mg/dL Normal 65-99 [facility] Comment on above: Result Comment: Fasting reference interval Performed By: #### 7 600, 02052, 62411 #### [facility] [place] [address] [employer] [place] Supervisor: Landon Barriga MD Potassium [Moles/Vol] 4.3 mmol/L Normal 3.5-5.[address] [facility] [address] [facility] Comment on above: Performed By: #### 7 600, 26682, 71984 #### [facility] [place] [address] [employer] [place] Supervisor: Landon Barriga MD Protein [Mass/Vol] 6.5 g/dL Normal 6.1-8.1 [facility] Comment on above: Performed By: #### 7 600, 04205, 23929 #### [facility] [place] [address] [employer] [place] Supervisor: Landon Barriga MD Sodium [Moles/Vol] 141 mmol/L Normal 135-146 [facility] Comment on above: Performed By: #### 7 600, 80380, 28651 #### [facility] [place] [address] [employer] [place] Supervisor: Landon Barriga MD Urea nitrogen [Mass/Vol] 29 mg/dL High 7-25 [facility] Comment on above: Performed By: #### 7 600, 28524, 58789 #### [facility] [place] [address] [employer] [place] Supervisor: Landon Barriga MD Urea nitrogen/Creatinine [Mass ratio] 36 mg/mg High 6-22 [facility] Comment on above: Performed By: #### 7 600, 56224, 51851 #### [facility] [place] [address] [employer] [place] Supervisor: Landon Barriga MD LIPID PANEL, [place] [address] Cholesterol [Mass/Vol] 196 mg/dL Normal <200 [facility] Comment on above: Performed By: #### 7 600, 23417, 71591 #### [facility] [place] [address] [employer] [place] Supervisor: Landon Barriga MD Cholesterol in HDL [Mass/Vol] 49 mg/dL Low > OR = 50 [facility] Comment on above: Performed By: #### 7 600, 01176, 27970 #### [facility] [place] [address] [employer] [place] Supervisor: Landon Barriga MD Cholesterol in LDL [Mass/Vol] [...] equation in the estimation of LDL-C. Ross GILLIS et al. VIDAL. 2013;310(19): 8201-5606 (http://education.[employer]/faq/XPY327) Performed By: #### 7 600, 44062, 08957 #### [facility] [place] [address] [place] Supervisor: Landon Barriga MD Cholesterol.total/Chol esterol in HDL [Mass ratio] 4.0 {ratio} Normal <5.0 [facility] Comment on above: Performed By: #### 7 600, 99852, 42748 #### [facility] [place] [address] [employer] [place] Supervisor: Landon Barriga MD NON HDL CHOLESTEROL 147 mg/dL (calc) High <130 [facility] Comment on above: Result Comment: For patients with diabetes plus 1 major ASCVD risk factor, treating to a non-HDL-C goal of <100 mg/dL (LDL-C of <70 mg/dL) is considered a therapeutic option. Performed By: #### 7 600, 18475, 79929 #### [facility] [address], [address] [place] [address] [employer] [place] Supervisor: Landon Barriga MD Triglyceride [Mass/Vol] 108 mg/dL Normal <150 [facility] Comment on above: Performed By: #### 7 600, 76138, 96485 #### [facility] [address], [address] [place] Supervisor: Landon Barriga MD SPECIMEN INTEGRITY COMPROMIS EDon [...] red cells. Performed By: #### 7 600, 46485, 08773 #### [facility] [address], [address] [place], [place] [address] [employer] [place] Supervisor: Landon Barriga MD Laboratory - Chemistry and C hemistry - challengeon 07-31-2024 Albumin [Mass/Vol] 4.2 g/dL Normal 3.6 - 5.1 g/dL [facility], [facility].; [employer] Albumin/Globulin [Mass ratio] 1.8 {ratio} Normal 1.0 - 2.5 [facility] [employer], [employer] ALP [Catalytic activity/Vol] 81 U/L Normal 37 - 153 U/L [employer], [employer].; [employer], [employer] ALT [Catalytic activity/Vol] 14 U/L Normal 6 - 29 U/L [employer], [employer].; [employer], [employer] AST [Catalytic activity/Vol] 11 U/L Normal 10 - 35 U/L [employer], [employer].; [employer], [employer] Bilirubin [Mass/Vol] 0.4 mg/dL Normal 0.2 - 1 .2 mg/dL [employer], [employer].; [employer], [employer] Calcium [Mass/Vol] 9.4 mg/dL Normal 8.6 - 10. 4 mg/dL [employer], [employer].; [employer], [employer] Chloride [Moles/Vol] 106 mmol/L Normal 98 - 11 0 mmol/L [facility], [facility].; [facility], [facility]. Cholesterol [Mass/Vol] 196 mg/dL Normal [facility].; [facility], [facility] Cholesterol in HDL [Mass/Vol] 49 mg/dL Abnormal [facility], [facility].; [facility], [facility]. Cholesterol in LDL [Mass/Vol] 125 mg/dL Abnormal [facility].; [facility], [facility]. CO2 [Moles/Vol] 24 mmol/L Normal 20 - 32 mmol/L [facility].; [facility], [facility]. Creatinine [Mass/Vol] 0.81 mg/dL Normal 0.50 - 1.03 mg/dL [facility].; [facility], [facility]. GFR/1.73 sq M.predicted among non-blacks MDRD (S/P/Bld) [Vol rate/Area] 85 mL/min/{1.73_m2} Normal [facility].; [facility], [facility]. Glucose [Mass/Vol] 95 mg/dL Normal 65 - 99 mg/dL [facility], [facility].; [facility], [facility]. Potassium [Moles/Vol] 4.3 mmol/L Normal 3.5 - 5.3 mmol/L [facility].; [facility], [facility]. Protein [Mass/Vol] 6.5 g/dL Normal 6.1 - 8.1 g/dL [facility], [facility].; [facility], Inc[employer] Sodium [Moles/Vol] 141 mmol/L Normal 135 - 146 mmol/L [facility], [facility].; [facility] [employer] Triglyceride [Mass/Vol] 108 mg/dL Normal [facility], [facility].; [facility], [facility]. Urea nitrogen [Mass/Vol] 29 mg/dL Abnormal 7 - 25 mg/dL [facility].; [facility], [facility]. Urea nitrogen/Creatinine [Mass ratio] 36 mg/mg Abnormal 6 - 22 [facility], [facility].; [facility], [facility]. No Panel Informationon 07-31 CHOL/HDLC RATIO 4.0 Normal [facility].; [employer]. GLOBULIN 2.3 Normal 1.9 - 3.7 [employer].; [employer]. NON HDL CHOLESTEROL 147 Abnormal [facility] Hospital[facility].; [employer] SPECIMEN INTEGRITY COMPROMISED See Below Normal [facility] [employer].; [employer]. Work Phone: Absolute lymphocyte countOrd ered By: Matheus Castelan on 10-18-2023 Lymphocytes Auto (Unsp spec) [#/Vol] 2.14 10*3/uL 0.83-4.51 [facility] Basophil percentageOrdered B y: Matheus Castelan on 10-18-2023 Basophils/100 WBC (Bld) 0.3 % 0-1 [facility] Chloride [Moles/Vol] 110 mmol/L 98-107 [facility] Eosinophils/100 WBC (Bld) 2.4 % 0-5 [facility] Glucose [Mass/Vol] 96 mg/dL 74-106 [facility] Neutrophils (Bld) [#/Vol] 6.3 10*3/uL 2.0-7.7 [facility] Neutrophils/100 WBC (Bld) 65.2 % 47-70 [facility] Potassium [Moles/Vol] 4.2 mmol/L 3.5-5.1 [facility] Sodium [Moles/Vol] 140 mmol/L 136-145 [facility] WBC (Bld) [#/Vol] 9.6 10*3/uL 4.4-11.0 [facility] Blood erythrocytes count (nu mber/volume)Ordered By: Matheus Castelan on 10-18-2023 RBC (Bld) [#/Vol] 4.85 10*6/uL 4.2-5.4 [facility] Blood hemoglobin measurement (mass/volume)Ordered By: Matheus Castelan on 10-18-2023 Hemoglobin (Bld) [Mass/Vol] 13.6 g/dL 12.0-15.0 [facility] Blood lymphocytes/100 leukoc ytesOrdered By: Matheus Castelan on 10-18-2023 Lymphocytes/100 WBC (Bld) 22.3 % 19-41 [facility] Blood monocytes/100 leukocyt esOrdered By: Matheus Castelan on 10-18-2023 Monocytes/100 WBC (Bld) 9.4 % 0-10 [facility] Blood platelet mean volumeOr dered By: Matheus Castelan on 10-18-2023 Platelet mean volume (Bld) [Entitic vol] 10.9 fL 6.2-12.0 [facility] Determination of erythrocyte mean corpuscular volume (MCV)Ordered By: Matheus Castelan on 10-18-2023 MCV (RBC) [Entitic vol] 87.2 fL 81-99 [facility] Hematocrit Auto (Bld) [Volum e fraction]Ordered By: Matheus Castelan on 10-18-2023 Hematocrit (Bld) [Volume fraction] 42.3 % 37-47 [facility] Laboratory - Chemistry and C hemistry - challengeOrdered By: Matheus Castelan on 10-18-2023 CO2 [Moles/Vol] 24.0 mmol/L 21.0-32.0 [facility] Urea nitrogen/Creatinine [Mass ratio] 28.2 mg/mg 10-20 [facility] Laboratory - Hematology and Cell countsOrdered By: Matheus Casetlan on 10-18-2023 Erythrocyte distribution width (RBC) [Entitic vol] 45.4 fL 35.1-43.9 [facility] Erythrocyte distribution width (RBC) [Ratio] 14.1 % 11.6-14.6 [facility] Immature granulocytes/100 WBC (Bld) 0.400 % 0.0-0.9 [facility] Comment on above: IG% - Immature Granu locytes (promyelocytes, myelocytes and metamyelocytes) > 1% indicates that a LEFT SHIFT is Present. MCH (RBC) [Entitic mass] 28.0 pg 27.0-32.0 [facility] Nucleated RBC/100 WBC (Bld) [Ratio] 0 % 0-5 [facility] MCHC Auto (RBC) [Mass/Vol]Or dered By: Matheus Castelan on 10-18-2023 MCHC (RBC) [Mass/Vol] 32.2 g/dL 32-36 [facility] No Panel InformationOrdered By: Matheus Castelan on 10-18-2023 Estimated GFR (MDRD) Amer 89 mL/min >60 [facility] Comment on above: GFR Calc Estimated GFR (MDRD) Non-Af Amer 74 mL/min >60 [facility] Comment on above: Non- GFR Calc Platelets bldOrdered By: Arsenio Castelan on 10-18-2023 Platelets (Bld) [#/Vol] 355 10*3/uL 150-450 [facility] Serum or plasma calcium jen urement (mass/volume)Ordered By: Matheus Castelan on 10-18-2023 Calcium [Mass/Vol] 9.6 mg/dL 8.5-10.1 [facility] Serum or plasma creatinine m easurement (mass/volume)Ordered By: Matheus Castelan on 10-18-2023 Creatinine [Mass/Vol] 0.85 mg/dL 0.55-1.02 [facility] Comment on above: The validity of the calculated GFR & GFRAA in patients over 70 years has not been determined. Clinical correlation is essential. Serum or plasma urea nitroge n measurement (mass/volume)Ordered By: Matheus Castelan on 10-18-2023 Urea nitrogen [Mass/Vol] 24 mg/dL 04-20 [facility] Thin prep Papanicolaou smear with manual screeningOrdered By: Matheus Castelan on 10-18-2023 Thin prep Papanicolaou smear with manual screening 6 02-15 [facility] Whole blood hemoglobin A1c/t otal hemoglobin ratio (mass fraction)Ordered By: Matheus Castelan on 10-18-2023 HbA1c (Bld) [Mass fraction] 5.6 % 3.8-5.6 [facility] Comment on above: Normal < 5.7 % Predi abetic 5.7 - 6.4 % Diabetic >or= 6.5 % Please note range changes. No Panel Informationon 06-04 [id number] SEE NOTE Normal [facility], [employer].; [employer], [employer]. CLINICAL INFORMATION: SEE NOTE Normal [facility].; [facility] [facility], Inc[employer] SILVER PLATER: SEE NOTE Normal [facility] [employer], [facility].; [employer], [employer] INTERPRETATION/RESULT: SEE NOTE Normal [facility], [facility].; [employer], [employer] LMP: SEE NOTE Normal [facility] [employer], [facility].; [facility], Inc[facility] PREV. BX: SEE NOTE Normal [facility] [employer].; [employer]. PREV. PAP: SEE NOTE Normal [facility] [employer].; [employer], [employer] SOURCE: SEE NOTE Normal [facility].; [facility] [employer]. STATEMENT OF ADEQUACY: SEE NOTE Normal [facility] Services[facility].; [employer], [employer]. Laboratory - Chemistry and C hemistry - challengeon 05-28-2022 Albumin [Mass/Vol] 4.2 g/dL Normal 3.6 - 5.1 g/dL [facility].; [employer], [employer]. Albumin/Globulin [Mass ratio] 1.8 {ratio} Normal 1.0 - 2.5 [facility].; [employer], [employer]. ALP [Catalytic activity/Vol] 77 U/L Normal 37 - 153 U/L [facility].; [employer], [employer]. ALT [Catalytic activity/Vol] 16 U/L Normal 6 - 29 U/L [facility].; [employer], [employer]. AST [Catalytic activity/Vol] 15 U/L Normal 10 - 35 U/L [facility] [employer].; [employer], [employer]. Bilirubin [Mass/Vol] 0.2 mg/dL Normal 0.2 - 1 .2 mg/dL [facility].; [employer], [employer]. Calcium [Mass/Vol] 9.2 mg/dL Normal 8.6 - 10. 4 mg/dL [facility] [employer].; [employer], [employer]. Chloride [Moles/Vol] 106 mmol/L Normal 98 - 11 0 mmol/L [facility] [employer].; [employer], [employer]. Cholesterol [Mass/Vol] 201 mg/dL Abnormal [facility] Services[facility] [employer].; [employer], [employer]. Cholesterol in HDL [Mass/Vol] 44 mg/dL Abnormal [facility] [employer].; [employer], [employer] Cholesterol in LDL [Mass/Vol] 130 mg/dL Abnormal [employer], [employer].; [employer], [employer]. CO2 [Moles/Vol] 28 mmol/L Normal 20 - 32 mmol/L [facility] [employer].; [employer], [employer]. Creatinine [Mass/Vol] 0.82 mg/dL Normal 0.50 - 1.03 mg/dL [facility].; [place] [facility]. GFR/1.73 sq M.predicted among non-blacks MDRD (S/P/Bld) [Vol rate/Area] 85 mL/min/{1.73_m2} Normal [facility].; [place] [facility] Glucose [Mass/Vol] 91 mg/dL Normal 65 - 99 mg/dL [facility].; [employer] [facility]. Potassium [Moles/Vol] 4.5 mmol/L Normal 3.5 - 5.3 mmol/L [facility].; [facility] [employer]. Protein [Mass/Vol] 6.5 g/dL Normal 6.1 - 8.1 g/dL [facility].; [employer], [employer] Sodium [Moles/Vol] 141 mmol/L Normal 135 - 146 mmol/L [facility].; [employer]. Triglyceride [Mass/Vol] 153 mg/dL Abnormal [facility] [employer] [facility]; [employer] Urea nitrogen [Mass/Vol] 23 mg/dL Normal 7 - 25 mg/dL [facility] [employer] [facility].; [employer]. No Panel Informationon 05-28 BUN/CREATININE RATIO NOT APPLICABLE Normal 6 - 22 [facility].; [employer]. CHOL/HDLC RATIO 4.6 Normal [facility].; [employer]. GLOBULIN 2.3 Normal 1.9 - 3.7 [facility].; [employer], [employer]. NON HDL CHOLESTEROL 157 Abnormal [facility] [facility].; [employer]. Laboratory - Chemistry and C hemistry - challengeon 12-24-2020 Albumin [Mass/Vol] 4.7 g/dL Normal 3.6 - 5.1 g/dL [facility].; [employer], [employer]. Albumin/Globulin [Mass ratio] 2.0 {ratio} Normal 1.0 - 2.5 [facility] [employer].; [employer]. ALP [Catalytic activity/Vol] 68 U/L Normal 37 - 153 U/L [facility].; [facility], [facility]. ALT [Catalytic activity/Vol] 18 U/L Normal 6 - 29 U/L [facility].; [facility], [facility]. AST [Catalytic activity/Vol] 13 U/L Normal 10 - 35 U/L [facility], [facility].; [facility], [facility]. Bilirubin [Mass/Vol] 0.2 mg/dL Normal 0.2 - 1 .2 mg/dL [facility].; [facility], [facility]. Calcium [Mass/Vol] 9.9 mg/dL Normal 8.6 - 10. 4 mg/dL [facility], [facility].; [facility], [facility]. Chloride [Moles/Vol] 106 mmol/L Normal 98 - 11 0 mmol/L [facility], [facility].; [facility], [employer]. CO2 [Moles/Vol] 27 mmol/L Normal 20 - 32 mmol/L [facility].; [facility], [employer]. Creatinine [Mass/Vol] 0.87 mg/dL Normal 0.50 - 1.05 mg/dL [facility].; [facility], [facility]. GFR/1.73 sq M.predicted among blacks MDRD (S/P/Bld) [Vol rate/Area] 89 mL/min/{1.73_m2} Normal [facility], [facility].; [facility], [facility]. Glucose [Mass/Vol] 95 mg/dL Normal 65 - 99 mg/dL [facility].; [facility] [employer], [employer]. Potassium [Moles/Vol] 4.6 mmol/L Normal 3.5 - 5.3 mmol/L [facility].; [facility], [employer]. Protein [Mass/Vol] 7.0 g/dL Normal 6.1 - 8.1 g/dL [facility], [facility].; [facility], Inc[employer] Sodium [Moles/Vol] 142 mmol/L Normal 135 - 146 mmol/L [facility], [facility].; [facility] [employer], [employer]. TSH Qn 1.41 m[IU]/L Normal [facility].; [facility], [facility]. Urea nitrogen [Mass/Vol] 28 mg/dL Abnormal 7 - 25 mg/dL [facility].; [place] [facility] Urea nitrogen/Creatinine [Mass ratio] 32 mg/mg Abnormal 6 - 22 [facility].; [place] [facility] Laboratory - Hematology and Cell countson 12-24-2020 Basophils (Bld) [#/Vol] 0.05 10*3/uL Normal 0 - 200 {cells/uL} [facility].; [place] [facility] Basophils/100 WBC (Bld) 0.6 % Normal [facility].; [facility] Eosinophils (Bld) [#/Vol] 0.116 10*3/uL Normal 15 - 500 {cells/uL} [facility].; [facility] [facility] Eosinophils/100 WBC (Bld) 1.4 % Normal [facility].; [place] [employer] [facility] Erythrocyte distribution width (RBC) [Ratio] 12.6 % Normal 11.0 - 15.0 % [facility].; [place] [employer], [facility] Hematocrit (Bld) [Volume fraction] 44.5 % Normal 35.0 - 45.0 % [facility].; [place] [employer], [facility] Hemoglobin (Bld) [Mass/Vol] 14.8 g/dL Normal 11.7 - 15.5 g/dL [facility].; [place] [facility], [facility] Lymphocytes (Bld) [#/Vol] 2.191 10*3/uL Normal 850 - 3900 {cells/uL} [facility].; [employer] [facility] Lymphocytes/100 WBC (Bld) 26.4 % Normal [facility].; [place] [employer], [facility]. MCH (RBC) [Entitic mass] 30.0 pg Normal 27.0 - 33.0 pg [place] [facility].; [place] [employer], [facility]. MCHC (RBC) [Mass/Vol] 33.3 g/dL Normal 32.0 - 36.0 g/dL [facility].; [place] [employer], [facility]. MCV (RBC) [Entitic vol] 90.1 fL Normal 80.0 - 100.0 fL [facility]; [facility] Monocytes (Bld) [#/Vol] 0.672 10*3/uL Normal 200 - 950 {cells/uL} [facility] Monocytes/100 WBC (Bld) 8.1 % Normal [facility]; [facility] Neutrophils (Bld) [#/Vol] 5.271 10*3/uL Normal 1500 - 7800 {cells/uL} [facility].; [facility] Neutrophils/100 WBC (Bld) 63.5 % Normal [facility]; [facility] Platelet mean volume (Bld) [Entitic vol] 11.2 fL Normal 7.5 - 12.5 fL [facility]; [facility], [facility] Platelets (Bld) [#/Vol] 279 10*3/uL Normal 140 - 400 [facility]; [facility] RBC (Bld) [#/Vol] 4.94 10*6/uL Normal 3.80 - 5.10 {Million/u L} [facility].; [facility] WBC (Bld) [#/Vol] 8.3 10*3/uL Normal 3.8 - 10.8 [facility].; [place] [facility] No Panel Informationon 12-24 eGFR NON-AFR. SWISS 77 Normal [facility]; [place] [employer] [facility] GLOBULIN 2.3 Normal 1.9 - 3.7 [facility].; [place] [employer] [facility] Laboratory - Cytologyon 09-03 Microscopic observation Cyto stain Nom (Cvx) Normal [facility]; [place] [employer] [facility] Laboratory - Chemistry and C hemistry - challengeon 09-15-2010 Bilirubin Ql (U) Negative Normal [facility].; [place] [employer] Ketones Ql (U) Negative Normal [facility].; [place] [facility] pH (U) 5.5 [pH] Normal 4.6 - 8.0 [employer]. Specific gravity (U) [Rel density] 1.005 Normal 1.001 - 1.025 [employer]. Laboratory - Cytologyon 09-03 Cytology report Cyto stain Doc (Cvx/Vag) SEE NOTE Normal [employer]. Laboratory - Hematology and Cell countson 09-15-2010 Hemoglobin Ql (U) small Abnormal [employer]. Laboratory - Specimen inform ationon 09-15-2010 Appearance (U) clear Normal [employer]. Color (U) yellow Normal [employer]. Laboratory - Urinalysison Glucose Test strip (U) [Mass/Vol] Negative Normal [employer]. Leukocyte esterase Test strip Ql (U) Negative Normal [employer]. Nitrite Ql (U) Negative Normal [employer]. Protein Ql (U) Negative Normal [employer]. No Panel Informationon 09-15 UA - UROBILINOGEN 0.2 mg/dL Normal [employer]. Laboratory - Chemistry and C hemistry - challengeon 08-07-2010 Cholesterol [Mass/Vol] 207 mg/dL Abnormal 0 - 2 00 mg/dL [employer]. Cholesterol in HDL [Mass/Vol] 49 mg/dL Normal 40 - 60 mg/dL [employer]. Cholesterol in LDL [Mass/Vol] N/A Normal 0 - 100 mg/dL [employer]. Glucose [Mass/Vol] 113 mg/dL Abnormal 60 - 100 mg/dL [employer], [email or web address]. Triglyceride [Mass/Vol] mg/dL Abnormal 0 - 150 mg/dL [employer]. Vital Signs Date Time Vital Sign Value Performing Clinician Facility 06-26-2025 12:02-0400 Diastolic blood pressure 65 mm[Hg] Preston Armas MD Work Phone: [facility] 06-26-2025 12:02-0400 Heart rate 61 /min Preston Armas MD Work Phone: [facility] 06-26-2025 12:02-0400 Respiratory rate 18 /min Preston Armas MD Work Phone: [facility] 06-26-2025 12:02-0400 SaO2% (BldA) [Mass fraction] 99 % Preston Armas MD Work Phone: [facility] 06-26-2025 12:02-0400 Systolic blood pressure 117 mm[Hg] Preston Armas MD Work Phone: [facility] 06-26-2025 10:46-0400 Body temperature 97 [degF] Preston Armas MD Work Phone: [facility] 06-26-2025 08:44-0400 Body weight 84.82 kg Preston Armas MD Work Phone: [facility] 06-18-2025 19:24-0400 Body temperature 98.3 [degF] Dr. Joshua Whitlock MD Work Phone: [facility] 06-18-2025 19:24-0400 Diastolic blood pressure 64 mm[Hg] Dr. Joshua Whitlock MD Work Phone: [facility] 06-18-2025 19:24-0400 Heart rate 56 /min Dr. Joshua Whitlock MD Work Phone: [facility] 06-18-2025 19:24-0400 Respiratory rate 16 /min Dr. Joshua Whitlock MD Work Phone: [facility] 06-18-2025 19:24-0400 SaO2% (BldA) [Mass fraction] 99 % Dr. Joshua Whitlock MD Work Phone: [facility] 06-18-2025 19:24-0400 Systolic blood pressure 125 mm[Hg] Dr. Joshua Whitlock MD Work Phone: 5(131)286-622631 [place] [address] 06-18-2025 16:13-0400 Body height 154.[address] Joshua Whitlock MD Work Phone: 3(850)939-183731 [place] [address] 06-18-2025 16:13-0400 Body mass index (BMI) [Ratio] 35.9 kg/m2 Dr. Joshua Whitlock MD Work Phone: 9(179)939-457931 [place] [address] 06-18-2025 16:13-0400 Body weight 86.[address] Joshua Whitlock MD Work Phone: 6(621)085-044831 [place] [address] 06-15-2025 09:12-0400 Body temperature 99.1 [degF] Dr. Joshua Whitlock MD Work Phone: 5(695)193-906031 [place] [address] 06-15-2025 09:12-0400 Diastolic blood pressure 63 mm[Hg] Dr. Joshua Whitlock MD Work Phone: 1(322)391-902131 [place] [address] 06-15-2025 09:12-0400 Heart rate 62 /min Dr. Joshua Whitlock MD Work Phone: 7(398)107-081631 [place] [address] 06-15-2025 09:12-0400 Respiratory rate 16 /min Dr. Joshua Whitlock MD Work Phone: 9(292)051-577031 [place] [address] 06-15-2025 09:12-0400 SaO2% (BldA) [Mass fraction] 97 % Dr. Joshua Whitlock MD Work Phone: 4(652)989-755931 [place] [address] 06-15-2025 09:12-0400 Systolic blood pressure 113 mm[Hg] Dr. Joshua Whitlock MD Work Phone: 9(269)572-157331 [place] [address] 06-14-2025 12:25-0400 Body height 157.[address] Joshua Whitlock MD Work Phone: 7(027)027-873131 [place] [address] 06-14-2025 12:25-0400 Body weight 84.[address] Joshua Whitlock MD Work Phone: 6(041)452-731331 [place] [address] 06-13-2025 18:29-0400 Body mass index (BMI) [Ratio] 34.2 kg/m2 Dr. Joshua Whitlock MD Work Phone: 4(514)180-262731 [place] [address] 06-13-2025 17:40-0400 Body temperature 97.4 [degF] Dr. Joshua Whitlock MD Work Phone: 1(811)388-389631 [place] [address] 06-13-2025 17:40-0400 Diastolic blood pressure 79 mm[Hg] Dr. Joshua Whitlock MD Work Phone: 1(050)440-096431 [place] [address] 06-13-2025 17:40-0400 Heart rate 69 /min Dr. Joshua Whitlokc MD Work Phone: 8(774)549-812931 [place] [address] 06-13-2025 17:40-0400 Respiratory rate 17 /min Dr. Joshua Whitlock MD Work Phone: 3(817)924-393531 [place] [address] 06-13-2025 17:40-0400 SaO2% (BldA) [Mass fraction] 100 % Dr. Joshua Whitlock MD Work Phone: 2(116)255-961231 [place] [address] 06-13-2025 17:40-0400 Systolic blood pressure 127 mm[Hg] Dr. Joshua Whitlock MD Work Phone: 4(476)681-515831 [place] [address] 06-13-2025 13:36-0400 Body height 157.[address] Joshua Whitlock MD Work Phone: 1(607)803-849531 [place] [address] 06-13-2025 13:36-0400 Body mass index (BMI) [Ratio] 34.2 kg/m2 Dr. Josuha Whiltock MD Work Phone: 4(539)289-218031 [place] [address] 06-13-2025 13:36-0400 Body weight 84.[address] Joshua Whitlock MD Work Phone: 0(669)687-806531 [place] [address] 05-28-2025 13:52-0400 Body height 157.48 cm Lili Downey LPN [facility].; [facility]. 05-28-2025 13:52-0400 Body mass index (BMI) [Ratio] 34.93 kg/m2 Lili Downey LPN [facility], [facility].; [facility], [facility] 05-28-2025 13:52-0400 Body surface area Derived from formula 1.87 m2 Lili Downey LPN [facility].; [facility] 05-28-2025 13:52-0400 Body weight 86.64 kg Lili Downey LPN [facility].; [facility] 05-28-2025 13:52-0400 Diastolic blood pressure 72 mm[Hg] Llii Downey LPN [facility].; [facility], [facility]. Comment on above: Patient Position: Sitting; Cuff Location : Left Arm; Cuff Size: Standard 05-28-2025 13:52-0400 Heart rate 80 /min Lili Downey LPN [facility].; [facility]. Comment on above: Pattern: Regular 05-28-2025 13:52-0400 Systolic blood pressure 109 mm[Hg] Lili Downey LPN [facility].; [facility]. Comment on above: Patient Position: Sitting; Cuff Location : Left Arm; Cuff Size: Standard 02-07-2025 13:23-0400 Body height 157.48 cm Flakito Grady LPN [facility].; [facility]. 02-07-2025 13:23-0400 Body mass index (BMI) [Ratio] 34.57 kg/m2 Flakito Grady LPN [facility].; [facility]. 02-07-2025 13:23-0400 Body surface area Derived from formula 1.87 m2 Flakito Grady LPN [facility].; [facility]. 02-07-2025 13:23-0400 Body weight 85.73 kg Flakito Grady LPN [facility].; [facility]. 02-07-2025 13:23-0400 Diastolic blood pressure 70 mm[Hg] Flakito Grady LPN [facility].; [place] [facility], [facility]. Comment on above: Patient Position: Sitting; Cuff Location : Left Arm; Cuff Size: Standard 02-07-2025 13:23-0400 Heart rate 94 /min Flakito Grady LPN [facility] [place] [facility] Comment on above: Pattern: Regular 02-07-2025 13:23-0400 Systolic blood pressure 104 mm[Hg] Flakito Grady LPN [facility].; [facility], [email or web address]. Comment on above: Patient Position: Sitting; Cuff Location : Left Arm; Cuff Size: Standard 09-13-2024 13:50-0500 Body height 157.48 cm Flakito Grady LPN [facility].; [facility], [email or web address]. 09-13-2024 13:50-0500 Body mass index (BMI) [Ratio] 37.86 kg/m2 Flakito Grady LPN [facility].; [facility], [email or web address]. 09-13-2024 13:50-0500 Body surface area Derived from formula 1.94 m2 Flakito Grady [facility], [facility].; [facility]. 09-13-2024 13:50-0500 Body temperature 97 [degF] Flakito Grady [facility], [facility].; [facility], [email or web address]. 09-13-2024 13:50-0500 Body weight 93.9 kg Flakito Grady [employer] [facility].; [facility]. 09-13-2024 13:50-0500 Diastolic blood pressure 72 mm[Hg] Flakito Grady [facility], [facility].; [place] [facility], [email or web address]. Comment on above: Patient Position: Sitting; Cuff Location : Left Arm; Cuff Size: Standard 09-13-2024 13:50-0500 Heart rate 72 /min Flakito Grady [employer] [facility].; [place] [facility], [email or web address]. Comment on above: Pattern: Regular 09-13-2024 13:50-0500 Inhaled oxygen concentration 21 % Flakito Grady [facility], [facility].; [place] [facility]. Comment on above: Room air 09-13-2024 13:50-0500 SaO2% (BldA) [Mass fraction] 98 % Flakito Grady [facility], [facility].; [place] [facility], [email or web address]. 09-13-2024 13:50-0500 Systolic blood pressure 111 mm[Hg] Flakito Grady LPN [facility].; [employer] [facility]. Comment on above: Patient Position: Sitting; Cuff Location : Left Arm; Cuff Size: Standard 08-11-2024 11:10-0500 Body height 157.48 cm Flakito Grady [facility] 08-11-2024 11:10-0500 Body mass index (BMI) [Ratio] 37.49 kg/m2 Flakito Grady [employer] [facility] 08-11-2024 11:10-0500 Body surface area Derived from formula 1.93 m2 Flakito Grady [employer] [facility] 08-11-2024 11:10-0500 Body weight 92.99 kg Flakito Grady [facility] [place] [facility] 08-11-2024 11:10-0500 Diastolic blood pressure 71 mm[Hg] Flakito Gardy [facility] [email or web address] Comment on above: Patient Position: Sitting; Cuff Location : Left Arm; Cuff Size: Standard 08-11-2024 11:10-0500 Heart rate 67 /min Flakito Grady [employer] [facility] [email or web address] Comment on above: Pattern: Regular 08-11-2024 11:10-0500 Systolic blood pressure 103 mm[Hg] Flakito Grady [facility] [place] [facility] Comment on above: Patient Position: Sitting; Cuff Location : Left Arm; Cuff Size: Standard 10-25-2023 08:14-0500 Body height 157.48 cm Maddi Xin [employer] [facility] [place] [facility] 10-25-2023 08:14-0500 Body mass index (BMI) [Ratio] 38.41 kg/m2 Maddi [place] [facility] [place] [facility] 10-25-2023 08:14-0500 Body surface area Derived from formula 1.95 m2 Maddi [place] [employer] [facility] [place] [facility] [facility] 10-25-2023 08:14-0500 Body weight 95.26 kg Maddi [place] [facility] [facility], [employer]. 10-25-2023 08:14-0500 Diastolic blood pressure 88 mm[Hg] Heather Lauren LPN [facility], [facility].; [facility] [facility], [employer]. Comment on above: Patient Position: Sitting; Cuff Location : Left Arm; Cuff Size: Large 10-25-2023 08:14-0500 Heart rate 73 /min Heather Lauren LPN [facility] [email or web address] Comment on above: Pattern: Regular 10-25-2023 08:14-0500 Systolic blood pressure 118 mm[Hg] Heather Lauren [employer] [facility] [employer], [employer]. Comment on above: Patient Position: Sitting; Cuff Location : Left Arm; Cuff Size: Large 04-02-2023 10:24-0400 Body height 157.48 cm Grace Garcia MA [facility].; [place] [facility] 04-02-2023 10:24-0400 Body mass index (BMI) [Ratio] 37.91 kg/m2 Grace Garcia MA [facility].; [email or web address] 04-02-2023 10:24-0400 Body surface area Derived from formula 1.94 m2 Grace Garcia MA [facility].; [facility] [facility] 04-02-2023 10:24-0400 Body weight 94.01 kg Grace Garcia MA [facility].; [place] [facility] 04-02-2023 10:24-0400 Diastolic blood pressure 86 mm[Hg] Grace Garcia MA [facility].; [employer], [employer]. Comment on above: Patient Position: Sitting; Cuff Location : Left Arm; Cuff Size: Standard 04-02-2023 10:24-0400 Heart rate 71 /min Grace Garcia MA [facility], [facility].; [employer], [employer]. Comment on above: Pattern: Regular 04-02-2023 10:24-0400 Systolic blood pressure 136 mm[Hg] Grace Garcia MA [facility] [employer]. Comment on above: Patient Position: Sitting; Cuff Location : Left Arm; Cuff Size: Standard 10-14-2022 09:26-0500 Body height 157.48 cm Lili Mcleod MA [facility].; [facility]. 10-14-2022 09:26-0500 Body mass index (BMI) [Ratio] 38.41 kg/m2 Lili Mcleod MA [facility]. 10-14-2022 09:26-0500 Body surface area Derived from formula 1.95 m2 Lili Mcleod MA [facility]. 10-14-2022 09:26-0500 Body temperature 98.2 [degF] Lili Mcleod MA [facility].; [facility]. Comment on above: Method: Tympanic 10-14-2022 09:26-0500 Body weight 95.26 kg Lili Mcleod MA [facility]. 10-14-2022 09:26-0500 Diastolic blood pressure 75 mm[Hg] Lili Mcleod MA [facility]. Comment on above: Patient Position: Sitting; Cuff Location : Left Arm; Cuff Size: Standard 10-14-2022 09:26-0500 Heart rate 87 /min Lili Mcleod MA [facility]. Comment on above: Pattern: Regular 10-14-2022 09:26-0500 Inhaled oxygen concentration 20 % Lili Mcleod MA [facility].; [facility]. Comment on above: Room air 10-14-2022 09:26-0500 Inhaled oxygen concentration 21 % Lili Mcleod MA [facility].; [place] [facility]. Comment on above: Room air 10-14-2022 09:26-0500 SaO2% (BldA) [Mass fraction] 98 % Lili Mcleod MA [facility].; [place] [facility] 10-14-2022 09:26-0500 Systolic blood pressure 108 mm[Hg] Lili Mcleod [facility].; [facility]. Comment on above: Patient Position: Sitting; Cuff Location : Left Arm; Cuff Size: Standard 09-15-2022 11:17-0500 Body height 157.48 cm Lili Mcleod MA [facility].; [facility]. 09-15-2022 11:17-0500 Body mass index (BMI) [Ratio] 38.77 kg/m2 Lili Mcleod MA [facility].; [facility]. 09-15-2022 11:17-0500 Body surface area Derived from formula 1.96 m2 Lili Mcleod MA [facility].; [facility]. 09-15-2022 11:17-0500 Body temperature 97.3 [degF] Lili Mcleod MA [facility].; [facility]. Comment on above: Method: Tympanic 09-15-2022 11:170500 Body weight 96.16 kg Lili Mcleod MA [facility]. 09-15-2022 11:17-0500 Diastolic blood pressure 80 mm[Hg] Lili Mcleod [facility].; [place] [employer]. Comment on above: Patient Position: Sitting; Cuff Location : Left Arm; Cuff Size: Standard 09-15-2022 11:17-0500 Heart rate 82 /min Lili Mcleod MA [facility], [facility].; [facility] [employer]. Comment on above: Pattern: Regular 09-15-2022 11:17-0500 Inhaled oxygen concentration 20 % Lili Mcleod [facility].; [facility] [employer]. Comment on above: Room air 09-15-2022 11:17-0500 Inhaled oxygen concentration 21 % Lili Mcleod MA [facility], [facility].; [place] [employer]. Comment on above: Room air 09-15-2022 11:17-0500 SaO2% (BldA) [Mass fraction] 98 % Lili Mcleod MA [facility], [facility].; [place] [employer]. 09-15-2022 11:17-0500 Systolic blood pressure 121 mm[Hg] L[facility]cleod [facility].; [employer]. Comment on above: Patient Position: Sitting; Cuff Location : Left Arm; Cuff Size: Standard 06-04-2022 07:25-0400 Body height 157.48 cm Lili Downey LPN [facility], [facility].; [facility], [facility]. 06-04-2022 07:25-0400 Body mass index (BMI) [Ratio] 38.23 kg/m2 Lili Downey LPN [facility] [place] [facility], [facility]. 06-04-2022 07:25-0400 Body surface area Derived from formula 1.95 m2 Lili Downey LPN [facility], [facility].; [place] [facility], [facility]. 06-04-2022 07:25-0400 Body weight 94.8 kg Lili Downey LPN [facility], [facility].; [place] [facility], [facility]. 06-04-2022 07:25-0400 Diastolic blood pressure 71 mm[Hg] Lili Downey LPN [facility], [facility].; [employer]. Comment on above: Patient Position: Sitting; Cuff Location : Left Arm; Cuff Size: Standard 06-04-2022 07:25-0400 Heart rate 78 /min Lili Downey LPN [facility], [facility].; [employer]. Comment on above: Pattern: Regular 06-04-2022 07:25-0400 Systolic blood pressure 106 mm[Hg] Lili Downey LPN [facility], [facility].; [employer]. Comment on above: Patient Position: Sitting; Cuff Location : Left Arm; Cuff Size: Standard 04-07-2022 07:46-0400 Body height 157.48 cm Heather Lauren LPN [facility], [facility].; [employer]. 04-07-2022 07:46-0400 Body mass index (BMI) [Ratio] 37.86 kg/m2 Maddi Xin [employer] [facility] [email or web address] 04-07-2022 07:46-0400 Body surface area Derived from formula 1.94 m2 Maddi Xin [employer] [facility] [employer]. 04-07-2022 07:46-0400 Body weight 93.9 kg Heather Lauren LPN [facility], [facility]. 04-07-2022 07:46-0400 Diastolic blood pressure 64 mm[Hg] Heather Lauren LPN [facility], [facility] Comment on above: Patient Position: Sitting; Cuff Location : Left Arm; Cuff Size: Large 04-07-2022 07:46-0400 Heart rate 88 /min Heather Lauren LPN [facility] [place] [facility], [employer]. Comment on above: Pattern: Regular 04-07-2022 07:46-0400 Systolic blood pressure 106 mm[Hg] Heather Lauren [facility] [place] [facility], [facility] Comment on above: Patient Position: Sitting; Cuff Location : Left Arm; Cuff Size: Large 12-24-2020 11:04-0400 Body height 157.48 cm Heather Lauren [facility] [place] [facility], [facility] 12-24-2020 11:04-0400 Body mass index (BMI) [Ratio] 37.68 kg/m2 MaddiDora Lauren [facility], [facility].; [place] [facility], [facility] 12-24-2020 11:04-0400 Body surface area Derived from formula 1.94 m2 MaddiDora Lauren [employer] [facility] [place] [facility], [facility] 12-24-2020 11:04-0400 Body weight 93.44 kg Heather Lauren [facility], [facility].; [place] [facility], [facility] 12-24-2020 11:04-0400 Diastolic blood pressure 72 mm[Hg] Heather Lauren [facility], [facility].; [place] [facility], [employer]. Comment on above: Patient Position: Sitting; Cuff Location : Left Arm; Cuff Size: Large 12-24-2020 11:04-0400 Heart rate 80 /min Heather Lauren [facility] [employer], [employer]. Comment on above: Pattern: Regular 12-24-2020 11:04-0400 Systolic blood pressure 138 mm[Hg] Heather John Xin [employer].; [employer]. Comment on above: Patient Position: Sitting; Cuff Location : Left Arm; Cuff Size: Large 12-20-2020 07:29-0400 Body height 157.48 cm Denise Salgado RN [facility] [employer]. 12-20-2020 07:29-0400 Body mass index (BMI) [Ratio] 37.68 kg/m2 Denise Salgado RN [facility].; [facility] [facility]. 12-20-2020 07:290400 Body surface area Derived from formula 1.94 m2 Denise Salgado RN [facility].; [employer]. 12-20-2020 07:29-0400 Body temperature 97.2 [degF] Denise Salgado RN [employer].; [employer]. Comment on above: Method: Tympanic 12-20-2020 07:290400 Body weight 93.44 kg Denise Salgado RN [employer].; [employer]. 12-20-2020 07:29-0400 Diastolic blood pressure 73 mm[Hg] Denise Salgado RN [employer].; [employer]. Comment on above: Patient Position: Sitting; Cuff Location : Left Arm; Cuff Size: Large 12-20-2020 07:29-0400 Heart rate 86 /min Denise Salgado RN [employer].; [employer]. Comment on above: Pattern: Regular 12-20-2020 07:29-0400 Systolic blood pressure 121 mm[Hg] Denise Salgado RN [employer].; [employer]. Comment on above: Patient Position: Sitting; Cuff Location : Left Arm; Cuff Size: Large 02-07-2020 09:50-0400 Body height 157.48 cm Maddi Xin [employer] [facility].; [employer]. 02-07-2020 09:50-0400 Body mass index (BMI) [Ratio] 34.93 kg/m2 Heather Lauren [facility] [employer], [employer]. 02-07-2020 09:50-0400 Body surface area Derived from formula 1.87 m2 Heather Lauren [employer] [facility] [employer], [employer]. 02-07-2020 09:50-0400 Body weight 86.64 kg Heather Lauren [facility], [facility].; [employer], [employer]. 02-07-2020 09:50-0400 Diastolic blood pressure 62 mm[Hg] Heather Lauren [facility], [facility] [employer], [employer]. Comment on above: Patient Position: Sitting; Cuff Location : Left Arm; Cuff Size: Large 02-07-2020 09:50-0400 Heart rate 82 /min Heather Lauren [facility] [employer]. Comment on above: Pattern: Regular 02-07-2020 09:50-0400 Systolic blood pressure 107 mm[Hg] Heather Lauren [employer] [facility] [employer]. Comment on above: Patient Position: Sitting; Cuff Location : Left Arm; Cuff Size: Large 01-06-2019 11:48-0400 Body height 157.48 cm Denise Salgado RN [place] [facility], [employer].; [employer]. 01-06-2019 11:48-0400 Body mass index (BMI) [Ratio] 36.58 kg/m2 Denise Salgado RN [place] [facility], [employer].; [employer]. 01-06-2019 11:48-0400 Body surface area Derived from formula 1.91 m2 Denise Salgado RN [employer], [employer].; [employer]. 01-06-2019 11:48-0400 Body temperature 98.4 [degF] Denise Salgado RN [employer], [employer].; [employer]. Comment on above: Method: Tympanic 01-06-2019 11:48-0400 Body weight 90.72 kg Denise Salgado RN [facility] [employer], [employer] 01-06-2019 11:48-0400 Diastolic blood pressure 73 mm[Hg] Denise Salgado RN [facility] [employer], [employer] Comment on above: Patient Position: Sitting; Cuff Location : Left Arm; Cuff Size: Standard 01-06-2019 11:48-0400 Heart rate 92 /min Denise Salgado RN [facility] [employer], [employer] Comment on above: Pattern: Regular 01-06-2019 11:48-0400 Systolic blood pressure 107 mm[Hg] Denise Salgado RN [facility] [employer], [employer] Comment on above: Patient Position: Sitting; Cuff Location : Left Arm; Cuff Size: Standard 05-31-2018 08:57-0400 Body height 157.48 cm MaddiDora Lauren LPN [facility] [employer], [employer] 05-31-2018 08:57-0400 Body mass index (BMI) [Ratio] 35.48 kg/m2 MaddiDora Lauren [employer] [facility] [employer], [employer] 05-31-2018 08:57-0400 Body surface area Derived from formula 1.89 m2 Maddijayde Lauren LPN [facility] [employer], [employer] 05-31-2018 08:57-0400 Body weight 88 kg MaddiDora Lauren LPN [facility] [employer], [employer] 05-31-2018 08:57-0400 Diastolic blood pressure 79 mm[Hg] Heather Lauren LPN [facility] [employer], [employer]. Comment on above: Patient Position: Sitting; Cuff Location : Left Arm; Cuff Size: Large 05-31-2018 08:57-0400 Heart rate 94 /min MaddiDora Lauren LPN [facility] [employer], [employer] Comment on above: Pattern: Regular 05-31-2018 08:57-0400 Systolic blood pressure 114 mm[Hg] Heather Lauren LPN [place] [employer].; [employer]. Comment on above: Patient Position: Sitting; Cuff Location : Left Arm; Cuff Size: Large 01-22-2017 10:03-0400 Body height 157.48 cm Joshua Whitlock MD Work Phone: [employer].; [employer]. 01-22-2017 10:03-0400 Body mass index (BMI) [Ratio] 36.58 kg/m2 Joshua Whitlock MD Work Phone: [employer].; [employer]. 01-22-2017 10:03-0400 Body surface area Derived from formula 1.91 m2 Joshua Whitlock MD Work Phone: [employer].; [employer]. 01-22-2017 10:03-0400 Body temperature 99.1 [degF] Joshua Whitlock MD Work Phone: [employer].; [employer]. Comment on above: Method: Tympanic 01-22-2017 10:03-0400 Body weight 90.72 kg Joshua Whitlock MD Work Phone: [employer].; [employer]. 01-22-2017 10:03-0400 Diastolic blood pressure 81 mm[Hg] Joshua Whitlock MD Work Phone: [employer].; [employer]. Comment on above: Patient Position: Sitting; Cuff Location : Left Arm; Cuff Size: Standard 01-22-2017 10:03-0400 Heart rate 76 /min Joshua Whitlock MD Work Phone: [employer].; [employer]. Comment on above: Pattern: Regular 01-22-2017 10:03-0400 Systolic blood pressure 122 mm[Hg] Joshua Whitlock MD Work Phone: [employer].; [employer]. Comment on above: Patient Position: Sitting; Cuff Location : Left Arm; Cuff Size: Standard 01-15-2016 11:02-0400 [facility].; [employer] 01-15-2016 11:02-0400 Body mass index (BMI) [Ratio] 36.58 kg/m2 Heather Lauren [employer] [facility] [email or web address], [employer]. 01-15-2016 11:02-0400 Body surface area Derived from formula 1.91 m2 Heather Lauren LPN [facility] [employer]. 01-15-2016 11:02-0400 Body temperature 98.5 [degF] Heather Lauren [facility] [employer]. Comment on above: Method: Tympanic 01-15-2016 11:02-0400 Body weight 90.72 kg Heather Lauren LPN [facility] [employer]. 01-15-2016 11:02-0400 Diastolic blood pressure 70 mm[Hg] Heather Lauren [facility], [employer].; [employer]. Comment on above: Patient Position: Sitting; Cuff Location : Left Arm; Cuff Size: Large 01-15-2016 11:02-0400 Heart rate 71 /min Heather Lauren [facility], [employer].; [employer]. Comment on above: Pattern: Regular 01-15-2016 11:02-0400 Inhaled oxygen concentration 20 % Heather Lauren [employer] [facility] [employer]. Comment on above: Room air 01-15-2016 11:02-0400 Inhaled oxygen concentration 21 % Heather [facility].; [employer]. Comment on above: Room air 01-15-2016 11:02-0400 SaO2% (BldA) [Mass fraction] 98 % Heather Lauren [facility], [employer].; [employer]. 01-15-2016 11:02-0400 Systolic blood pressure 103 mm[Hg] Heather Lauren [employer] [facility] [facility], [employer].; [employer]. Comment on above: Patient Position: Sitting; Cuff Location : Left Arm; Cuff Size: Large 11-21-2015 09:35-0500 Body height 157.48 cm Joshua Whitlock MD Work Phone: [employer].; [employer]. 11-21-2015 09:35-0500 Body mass index (BMI) [Ratio] 36.21 kg/m2 Joshua Whitlock MD Work Phone: [employer].; [employer]. 11-21-2015 09:35-0500 Body surface area Derived from formula 1.9 m2 Joshua Whitlock MD Work Phone: [employer].; [employer]. 11-21-2015 09:35-0500 Body temperature 97.4 [degF] Joshua Whitlock MD Work Phone: [employer].; [employer]. 11-21-2015 09:35-0500 Body weight 89.81 kg Joshua Whitlock MD Work Phone: [employer].; [employer]. 11-21-2015 09:35-0500 Diastolic blood pressure 65 mm[Hg] Joshua Whitlock MD Work Phone: [employer].; [employer]. Comment on above: Patient Position: Sitting; Cuff Location : Left Arm; Cuff Size: Standard 11-21-2015 09:35-0500 Heart rate 84 /min Joshua Whitlock MD Work Phone: [employer]; [employer]. Comment on above: Pattern: Regular 11-21-2015 09:35-0500 Systolic blood pressure 116 mm[Hg] Joshua Whitlock MD Work Phone: [employer].; [employer]. Comment on above: Patient Position: Sitting; Cuff Location : Left Arm; Cuff Size: Standard 09-16-2015 14:17-0500 Body weight 89.36 kg Katya Almaraz LPN [employer].; [employer]. 09-16-2015 14:17-0500 Diastolic blood pressure 61 mm[Hg] Katya Almaraz LPN [employer].; [employer]. Comment on above: Patient Position: Sitting; Cuff Location : Left Arm; Cuff Size: Standard 09-16-2015 14:17-0500 Heart rate 79 /min Katya Almaraz LPN [employer].; [employer]. Comment on above: Pattern: Regular 09-16-2015 14:17-0500 Systolic blood pressure 107 mm[Hg] Katya Almaraz LPN [employer].; [employer]. Comment on above: Patient Position: Sitting; Cuff Location : Left Arm; Cuff Size: Standard 09-13-2015 10:35-0500 Body height 157.48 cm Joshua Whitlock MD Work Phone: [employer].; [employer]. 09-13-2015 10:35-0500 Body mass index (BMI) [Ratio] 35.48 kg/m2 Joshua Whitlock MD Work Phone: [employer].; [employer]. 09-13-2015 10:35-0500 Body surface area Derived from formula 1.89 m2 Joshua Whitlock MD Work Phone: [employer].; [employer]. 09-13-2015 10:35-0500 Body weight 88 kg Joshua Whitlock MD Work Phone: [employer].; [employer]. 09-13-2015 10:35-0500 Diastolic blood pressure 65 mm[Hg] Joshua Whitlock MD Work Phone: [employer].; [employer]. Comment on above: Patient Position: Sitting; Cuff Location : Left Arm; Cuff Size: Standard 09-13-2015 10:35-0500 Heart rate 86 /min Joshua Whitlock MD Work Phone: [employer].; [employer]. Comment on above: Pattern: Regular 09-13-2015 10:35-0500 Systolic blood pressure 100 mm[Hg] Joshua Whitlock MD Work Phone: [employer].; [employer]. Comment on above: Patient Position: Sitting; Cuff Location : Left Arm; Cuff Size: Standard 03-15-2015 10:31-0400 Body height 157.48 cm Joshua Whitlock MD Work Phone: [employer].; [employer]. 03-15-2015 10:31-0400 Body mass index (BMI) [Ratio] 33.65 kg/m2 Joshua Whitlock MD Work Phone: [employer].; [employer]. 03-15-2015 10:31-0400 Body surface area Derived from formula 1.85 m2 Joshua Whitlock MD Work Phone: [employer].; [employer]. 03-15-2015 10:31-0400 Body weight 83.46 kg Joshua Whitlock MD Work Phone: [employer].; [employer]. 03-15-2015 10:31-0400 Diastolic blood pressure 71 mm[Hg] Joshua Whitlock MD Work Phone: [employer].; [employer]. Comment on above: Patient Position: Sitting; Cuff Location : Left Arm; Cuff Size: Standard 03-15-2015 10:31-0400 Heart rate 82 /min Joshua Whitlock MD Work Phone: [employer].; [employer]. Comment on above: Pattern: Regular 03-15-2015 10:31-0400 Systolic blood pressure 105 mm[Hg] Joshua Whitlock MD Work Phone: [employer].; [employer]. Comment on above: Patient Position: Sitting; Cuff Location : Left Arm; Cuff Size: Standard 12-11-2014 11:02-0400 Body height 157.48 cm Heather Lauren [employer].; [employer]. 12-11-2014 11:02-0400 Body mass index (BMI) [Ratio] 34.02 kg/m2 [facility].; [employer]. 12-11-2014 11:02-0400 Body surface area Derived from formula 1.85 m2 Heather Lauren LPN [facility] [employer] [facility], [employer]. 12-11-2014 11:02-0400 Body weight 84.37 kg Heather Lauren LPN [facility] [employer] 12-11-2014 11:02-0400 Diastolic blood pressure 63 mm[Hg] Heather Lauren LPN [facility] [employer], [employer]. Comment on above: Patient Position: Sitting; Cuff Location : Left Arm; Cuff Size: Large 12-11-2014 11:02-0400 Heart rate 78 /min Heather Lauren LPN [facility] [employer], [employer]. Comment on above: Pattern: Regular 12-11-2014 11:02-0400 Systolic blood pressure 103 mm[Hg] Heather Lauren LPN [facility] [employer], [employer]. Comment on above: Patient Position: Sitting; Cuff Location : Left Arm; Cuff Size: Large 07-26-2013 14:44-0400 Body weight 86.64 kg Heather Lauren LPN [facility], [employer]. 07-26-2013 14:44-0400 Diastolic blood pressure 69 mm[Hg] Heather Lauren LPN [facility] [employer], [employer]. Comment on above: Patient Position: Sitting; Cuff Location : Left Arm; Cuff Size: Large 07-26-2013 14:44-0400 Heart rate 85 /min Heather Lauren LPN [facility] [employer], [employer]. Comment on above: Pattern: Regular 07-26-2013 14:44-0400 Systolic blood pressure 101 mm[Hg] Heather Lauren LPN [facility], [employer].; [employer], [employer]. Comment on above: Patient Position: Sitting; Cuff Location : Left Arm; Cuff Size: Large 02-28-2013 13:47-0400 Body height 157.48 cm Heather Lauren [employer] [facility] [employer], [employer]. 02-28-2013 13:47-0400 Body mass index (BMI) [Ratio] 33.47 kg/m2 Heather Lauren [facility], [facility].; [facility] 02-28-2013 13:47-0400 Body surface area Derived from formula 1.84 m2 Heather Lauren [employer] [facility], [facility].; [place] [facility], [facility] 02-28-2013 13:47-0400 Body temperature 98.3 [degF] Heather Lauren [facility], [facility].; [employer], [employer]. Comment on above: Method: Tympanic 02-28-2013 13:47-0400 Body weight 83.01 kg Heather Lauren [facility], [facility].; [place] [facility], [employer]. 02-28-2013 13:47-0400 Diastolic blood pressure 79 mm[Hg] Heather Lauren [facility] [employer], [employer]. Comment on above: Patient Position: Sitting; Cuff Location : Left Arm; Cuff Size: Large 02-28-2013 13:47-0400 Heart rate 69 /min Heather Lauren [facility], [facility].; [place] [facility], [employer]. Comment on above: Pattern: Regular 02-28-2013 13:47-0400 Inhaled oxygen concentration 20 % MaddiDora Lauren [facility], [facility].; [place] [facility], [facility] Comment on above: Room air 02-28-2013 13:47-0400 Inhaled oxygen concentration 21 % Heather Lauren [facility] [place] [facility] [facility], [employer]. Comment on above: Room air 02-28-2013 13:47-0400 SaO2% (BldA) [Mass fraction] 99 % MaddiDora Lauren [facility], [facility].; [place] [facility], [employer]. 02-28-2013 13:47-0400 Systolic blood pressure 115 mm[Hg] Heather Lauren [facility], [facility].; [employer], [employer]. Comment on above: Patient Position: Sitting; Cuff Location : Left Arm; Cuff Size: Large 06-27-2012 13:43-0400 Body height 157.48 cm Soumyajustus Michaels LPN [facility], [facility].; [employer], [employer]. 06-27-2012 13:43-0400 Body mass index (BMI) [Ratio] 33.38 kg/m2 Soumya Brando [employer] [facility], [facility].; [employer], [employer]. 06-27-2012 13:43-0400 Body surface area Derived from formula 1.84 m2 Soumya Michaels LPN [facility] [employer]. 06-27-2012 13:43-0400 Body temperature 98.4 [degF] [facility], [facility].; [employer]. Comment on above: Method: Tympanic 06-27-2012 13:43-0400 Body weight 82.78 kg Soumyajustus Michaels LPN [facility], [facility].; [employer]. 06-27-2012 13:43-0400 Diastolic blood pressure 74 mm[Hg] Soumya [facility], [facility].; [employer]. Comment on above: Patient Position: Sitting; Cuff Location : Left Arm; Cuff Size: Standard 06-27-2012 13:43-0400 Heart rate 87 /min Soumyajustus Michaels LPN [place] [facility], [facility].; [employer]. Comment on above: Pattern: Regular 06-27-2012 13:43-0400 Inhaled oxygen concentration 20 % Soumya Michaels LPN [place] [facility], [facility] [employer]. Comment on above: Room air 06-27-2012 13:43-0400 Inhaled oxygen concentration 21 % Soumya Michaels LPN [place] [facility], [facility].; [employer]. Comment on above: Room air 06-27-2012 13:43-0400 SaO2% (BldA) [Mass fraction] 97 % [facility]a [facility], [employer].; [employer]. 06-27-2012 13:43-0400 Systolic blood pressure 110 mm[Hg] Soumya Michaels LPN [place] [facility].; [employer]. Comment on above: Patient Position: Sitting; Cuff Location : Left Arm; Cuff Size: Standard 11-26-2011 08:58-0500 Body temperature 97.7 [degF] Soumya Duncancalianayeli [employer] [facility] [employer]. Comment on above: Method: Tympanic 11-26-2011 08:58-0500 Body weight 82.67 kg Soumya Weeric [facility], [facility].; [employer] 11-26-2011 08:58-0500 Diastolic blood pressure 75 mm[Hg] Soumya Duncaneric [facility], [facility].; [employer]. Comment on above: Patient Position: Sitting; Cuff Location : Left Arm; Cuff Size: Standard 11-26-2011 08:58-0500 Heart rate 87 /min Soumya Weeric [employer] [place] [facility], [facility].; [employer]. Comment on above: Pattern: Regular 11-26-2011 08:58-0500 Inhaled oxygen concentration 20 % Soumya Dakotaeric [facility].; [employer]. Comment on above: Room air 11-26-2011 08:58-0500 Inhaled oxygen concentration 21 % Soumya Weeric [facility], [facility] [employer]. Comment on above: Room air 11-26-2011 08:58-0500 SaO2% (BldA) [Mass fraction] 96 % Soumya Weeric [facility], [facility].; [employer] 11-26-2011 08:58-0500 Systolic blood pressure 127 mm[Hg] Soumya Weeric [employer] [place] [employer]. Comment on above: Patient Position: Sitting; Cuff Location : Left Arm; Cuff Size: Standard 09-25-2011 12:57-0500 Body height 157.48 cm [facility], [facility].; [employer]. 09-25-2011 12:57-0500 Body mass index (BMI) [Ratio] 33.1 kg/m2 [facility], [employer].; [employer]. 09-25-2011 12:57-0500 Body surface area Derived from formula 1.83 m2 Heather Lauren LPN [facility] [facility], [employer].; [employer]. 09-25-2011 12:57-0500 Body weight 82.1 kg Heather Lauren LPN [facility], [facility].; [facility] [facility]. 09-25-2011 12:57-0500 Diastolic blood pressure 77 mm[Hg] Heather Lauren LPN [facility], [employer].; [employer] [facility]. Comment on above: Patient Position: Sitting; Cuff Location : Left Arm; Cuff Size: Large 09-25-2011 12:57-0500 Heart rate 73 /min Heather Lauren LPN [facility], [employer].; [facility] [facility]. Comment on above: Pattern: Regular 09-25-2011 12:57-0500 Systolic blood pressure 110 mm[Hg] Heather Lauren LPN [facility], [employer].; [facility] [facility]. Comment on above: Patient Position: Sitting; Cuff Location : Left Arm; Cuff Size: Large 12-29-2010 10:02-0400 Body weight 76.66 kg Joshua Whitlock MD Work Phone: [employer].; [employer] [facility]. 12-29-2010 10:02-0400 Diastolic blood pressure 73 mm[Hg] Joshua Whitlock MD Work Phone: [employer].; [employer]. Comment on above: Patient Position: Sitting; Cuff Location : Left Arm; Cuff Size: Standard 12-29-2010 10:02-0400 Heart rate 87 /min Joshua Whitlock MD Work Phone: [employer].; [employer]. Comment on above: Pattern: Regular 12-29-2010 10:02-0400 Systolic blood pressure 117 mm[Hg] Joshua Whitlock MD Work Phone: [employer].; [facility] [facility]. Comment on above: Patient Position: Sitting; Cuff Location : Left Arm; Cuff Size: Standard 09-15-2010 13:01-0500 Body temperature 97.3 [degF] Joshua Whitlock MD Work Phone: [employer]; [facility] [facility]. Comment on above: Method: Tympanic 09-15-2010 13:01-0500 Body weight 74.84 kg Joshua Whitlock MD Work Phone: [employer]; [employer] 09-15-2010 13:01-0500 Diastolic blood pressure 77 mm[Hg] Joshua Whitlock MD Work Phone: [employer]; [facility] [facility]. Comment on above: Patient Position: Sitting; Cuff Location : Left Arm; Cuff Size: Standard 09-15-2010 13:01-0500 Heart rate 89 /min Joshua Whitlock MD Work Phone: [employer]; [employer] Comment on above: Pattern: Regular 09-15-2010 13:01-0500 Systolic blood pressure 123 mm[Hg] Joshua Whitlock MD Work Phone: [employer]; [facility] [facility]. Comment on above: Patient Position: Sitting; Cuff Location : Left Arm; Cuff Size: Standard Encounters Encounter Date Encounter Type Care Provider Facility Start: 07-10-2025 ambulatory [facility] ty:[facility] Start: 07-04-2025 End: 07-04-2025 ambulatory [facility] Start: 06-26-2025 End: 06-26-2025 ambulatory PRESTON ARMAS [facility] Start: 06-26-2025 End: 06-26-2025 Subsequent hospital visit by physician Preston Armas MD Work Phone: [facility] Endoscopy Comment on above: Pancreatic mass Start: 06-19-2025 End: 06-19-2025 Patient encounter procedure Alma Rosa DOCKERY -[facility] Work Phone: Start: 06-19-2025 End: 06-19-[address] Joshua Whitlock MD Work Phone: -[facility] Start: 06-18-2025 End: 06-18-2025 Emergency department patient visit Dr. Joshua Whitlock MD Work Phone: -Emergency Department Work Phone: Start: 06-15-2025 Non-patient / Non-visit Dr. Tika Yanez [facility] Work Phone: Start: 06-15-2025 ambulatory Al[facility] Fac[facility] ty:[facility] Start: 06-14-2025 Non-patient / Non-visit Killianalex Schmid asim DO [facility] Start: 06-14-2025 Non-patient / Non-visit Dr. Tika Yanez [facility] Work Phone: Start: 06-13-2025 ambulatory Killian Wallace Facility :[facility] Start: 06-13-2025 End: 06-15-2025 Evaluation and management of inpatient Dr. Maynor Blanton DO -Medical Surgical 3 Work Phone: Start: 05-28-2025 End: 05-28-2025 Periodic preventive med est patient 40-64yrs Joshua Whitlock MD Work Phone: [employer]. Start: 05-28-2025 End: 05-28-2025 Physical examination Joshua Whitlock MD Work Phone: [employer]; [facility] [facility]. Start: 05-28-2025 Physical examination Lili Downey LPN [facility]. Start: 03-08-2025 End: 03-12-2025 Orders Joshua Whitlock MD Work Phone: [facility] [facility]. Start: 03-08-2025 End: 03-08-2025 Medication Joshua Whitlock MD Work Phone: [employer]. Start: 02-07-2025 End: 02-07-2025 Office outpatient visit 15 minutes Joshua Whitlock MD Work Phone: [facility] [facility]. Start: 02-07-2025 Review Joshua Whitlock MD Work Phone: [facility] [facility]. Start: 11-30-2024 End: 11-30-2024 Historical Summary Joshua Whitlock MD Work Phone: [employer] Start: 10-06-2024 End: 10-06-2024 Medication Joshua Whitlock MD Work Phone: [employer] [facility]. Start: 09-25-2024 End: 09-25-2024 ambulatory Joshua Whitolck Facility:[facility] Start: 09-13-2024 End: 09-13-2024 Office outpatient visit 15 minutes Joshua Whitlock MD Work Phone: [employer] Start: 09-06-2024 End: 09-06-2024 ambulatory [facility] Start: 09-06-2024 End: 09-06-2024 ambulatory Joshua Whitlock Facility:[facility] Start: 08-11-2024 End: 08-11-2024 Patient encounter procedure Joshua Whitlock MD Work Phone: [employer]. Start: 08-11-2024 End: 08-11-2024 Periodic preventive med est patient 40-64yrs Joshua Whitlock MD Work Phone: [employer] [facility]. Start: 08-11-2024 End: 08-11-2024 Physical examination Joshua Whitlock MD Work Phone: [employer]; [employer]. Start: 07-31-2024 End: 08-01-2024 Orders Joshua Whitlock MD Work Phone: [facility]. Start: 07-12-2024 End: 07-13-2024 Orders Joshua Whitlock MD Work Phone: [facility] [facility]. Start: 07-12-2024 Review Joshua Whitlock MD Work Phone: [facility] [facility]. Start: 11-11-2023 End: 11-11-[address] Joshua Whitlock Work Phone: [facility] Work Phone: Start: 11-11-2023 End: 11-11-[address] Joshua Whitlock Work Phone: [facility]-Laboratory, Specimen Work Phone: Start: 10-25-2023 Review Joshua Whitlock MD Work Phone: [employer] [facility]. Start: 10-25-2023 End: 10-25-2023 Office outpatient visit 15 minutes Joshua Whitlock MD Work Phone: [employer] [facility]. Start: 10-25-2023 End: 10-25-2023 Physical examination Joshua Whitlock MD Work Phone: [employer]; [employer] [facility]. Start: 10-18-2023 End: 10-18-2023 Non-patient / Non-visit Dr. Joshua Whitlock Work Phone: [facility] Work Phone: Start: 10-18-2023 End: 10-18-[address] Joshua Whitlock Work Phone: [facility] Work Phone: Start: 10-18-2023 End: 10-18-[address] Joshua Whitlock Work Phone: [facility]-Cat Scan, [facility] Work Phone: Start: 04-02-2023 End: 04-02-2023 Office outpatient visit 15 minutes Joshua Whitlock MD Work Phone: [employer] [facility]. Start: 10-14-2022 End: 10-14-2022 Office outpatient visit 15 minutes Joshua Whitlock MD Work Phone: [employer] [facility]. Start: 09-15-2022 End: 09-15-2022 Office outpatient visit 15 minutes Joshua Whitlock MD Work Phone: [employer] [facility]. Start: 06-30-2022 End: 06-30-2022 Medication Joshua Whitlock MD Work Phone: [facility] [facility]. Start: 06-04-2022 End: 06-03-2022 Erroneous Entry Joshua Whitlock MD Work Phone: [employer] Start: 06-04-2022 End: 06-04-2022 Patient encounter procedure Joshua Whitlock MD Work Phone: [employer]; [facility]. Start: 06-04-2022 End: 06-04-2022 Periodic preventive med est patient 40-64yrs Joshua Whitlock MD Work Phone: [employer] [facility]. Start: 04-21-2022 End: 04-21-2022 Orders Joshua Whitlock MD Work Phone: [employer] Start: 04-07-2022 End: 04-07-2022 Office outpatient visit 10 minutes Joshua Whitlock MD Work Phone: [employer] Start: 12-25-2020 End: 12-25-2020 Medication Joshua Whitlock MD Work Phone: [employer] Start: 12-24-2020 End: 12-24-2020 Office outpatient visit 15 minutes Joshua Whitlock MD Work Phone: [employer] Start: 12-20-2020 End: 12-20-2020 Office outpatient visit 15 minutes Joshua Whitlock MD Work Phone: [employer] Start: 02-07-2020 End: 02-07-2020 Office outpatient visit 15 minutes Joshua Whitlock MD Work Phone: [employer] Start: 02-07-2020 End: 02-07-2020 Telephone follow-up Joshua Whitlock MD Work Phone: [employer] Start: 02-03-2020 End: 02-03-2020 Emergency department patient visit DENNY HARVEY [facility] Start: 01-09-2019 End: 01-09-2019 Orders Joshua Whitlock MD Work Phone: [employer] Start: 01-06-2019 End: 01-06-2019 Office outpatient visit 15 minutes Joshua Whitlock MD Work Phone: [employer] Start: 06-07-2018 End: 06-07-2018 Orders Joshua Whitlock MD Work Phone: [facility]. Start: 05-31-2018 End: 05-31-2018 Office outpatient visit 15 minutes Joshua Whitlock MD Work Phone: [employer] [facility]. Start: 04-28-2018 End: 04-28-2018 Telephone follow-up Joshua Whitlock MD Work Phone: [employer] [facility]. Start: 01-22-2017 End: 01-22-2017 Office outpatient visit 15 minutes Joshua Whitlock MD Work Phone: [employer] [facility]. Start: 01-15-2016 End: 01-15-2016 Office outpatient visit 15 minutes Joshua Whitlock MD Work Phone: [employer] [facility]. Start: 11-21-2015 End: 11-21-2015 Medication Joshua Whitlock MD Work Phone: [facility] [facility]. Start: 11-21-2015 End: 11-21-2015 Office outpatient visit 15 minutes Joshua Whitlock MD Work Phone: [employer] Start: 09-16-2015 End: 09-16-2015 Office outpatient visit 15 minutes Joshua Whitlock MD Work Phone: [employer] [facility]. Start: 09-13-2015 End: 09-13-2015 Office outpatient visit 15 minutes Joshua Whitlock MD Work Phone: [facility]. Start: 08-19-2015 End: 08-19-2015 Medication Joshua Whitlock MD Work Phone: [facility] [facility]. Start: 03-15-2015 End: 03-15-2015 Office outpatient visit 15 minutes Joshua Whitlock MD Work Phone: [facility]. Start: 03-15-2015 End: 03-15-2015 Pre-operative examination, unspecified Joshua Whitlock MD Work Phone: [employer].; [employer] Start: 12-11-2014 End: 12-11-2014 Orders Joshua Whitlock MD Work Phone: [facility] [facility]. Start: 12-11-2014 End: 12-11-2014 Office outpatient visit 15 minutes Joshua Whitlock MD Work Phone: [employer]. Start: 02-12-2014 End: 02-12-2014 Medication Joshua Whitlock MD Work Phone: [employer]. Start: 02-12-2014 End: 02-12-2014 Medication Joshua Whitlock MD Work Phone: [employer] [facility]. Start: 01-23-2014 End: 01-23-2014 Medication Joshua Whitlock MD Work Phone: [employer] [facility]. Start: 10-30-2013 End: 10-30-2013 Medication Joshua Whitlock MD Work Phone: [employer]. Start: 07-26-2013 End: 07-26-2013 Patient encounter procedure Joshua Whitlock MD Work Phone: [employer] Start: 07-26-2013 End: 07-26-2013 Pre-operative examination, unspecified Joshua Whitlock MD Work Phone: [employer]; [employer] [facility]. Start: 02-28-2013 End: 02-28-2013 Patient encounter procedure Joshua Whitlock MD Work Phone: [facility] [facility]. Start: 12-23-2012 End: 12-23-2012 Medication Joshua Whitlock MD Work Phone: [employer] [facility]. Start: 06-27-2012 End: 06-27-2012 Patient encounter procedure Joshua Whitlock MD Work Phone: [employer] [facility]. Start: 04-01-2012 End: 04-01-2012 Medication Joshua Whitlock MD Work Phone: [facility] [facility]. Start: 12-29-2011 End: 12-29-2011 Medication Joshua Whitlock MD Work Phone: [employer] [facility]. Start: 11-26-2011 End: 11-26-2011 Patient encounter procedure Joshua Whitlock MD Work Phone: [employer]. Start: 10-06-2011 End: 10-06-2011 Orders Joshua Whitlock MD Work Phone: [employer]. Start: 09-25-2011 End: 09-25-2011 Patient encounter procedure Joshua Whitlock MD Work Phone: [employer]. Start: 07-01-2011 End: 07-01-2011 Medication Joshua Whitlock MD Work Phone: [employer]. Start: 03-30-2011 End: 03-30-2011 Medication Joshua Whitlock MD Work Phone: [employer]. Start: 01-05-2011 End: 01-05-2011 Medication Joshua Whitlock MD Work Phone: [employer]. Start: 12-29-2010 End: 12-29-2010 Patient encounter procedure Joshua Whitlock MD Work Phone: [employer]. Start: 11-21-2010 End: 11-21-2010 Medication Joshua Whitlock MD Work Phone: [facility] [facility]. Start: 11-21-2010 End: 11-21-2010 Historical Summary Joshua Whitlock MD Work Phone: [employer]. Start: 11-03-2010 End: 11-03-2010 Medication Joshua Whitlock MD Work Phone: [facility] [facility]. Start: 09-26-2010 End: 09-26-2010 Medication Joshua Whitlock MD Work Phone: [facility] [facility]. Start: 09-16-2010 End: 09-16-2010 Laboratory examination ordered as part of a routine general medical examination Naye Valdez Work Phone: [employer].; [facility] [facility]. Start: 09-16-2010 End: 09-16-2010 Orders Joshua Whitlock MD Work Phone: [employer] [facility]. Start: 09-16-2010 End: 09-16-2010 Medication Joshua Whitlock MD Work Phone: [employer]. Start: 09-15-2010 End: 09-15-2010 Patient encounter procedure Joshua Whitlock MD Work Phone: [facility] Start: 09-15-2010 End: 09-15-2010 Routine gynecological examination Joshua Whitlock MD Work Phone: [facility]; [facility] Start: 07-14-2010 End: 07-14-2010 Medication Joshua Whitlock MD Work Phone: [facility] Start: 07-11-2010 End: 07-11-2010 Nursing evaluation of patient and report Joshua Whitlock MD Work Phone: [facility] Ad[facility] to [facility], [facility].; [facility], [facility] Patient encounter procedure Gracekrishna Garcia MA [facility] Patient encounter procedure [facility], [facility].; [facility], [facility] Patient encounter procedure Flakito Miguel A [facility].; [facility], [facility]. Patient encounter procedure Flakito Miguel A [facility].; [facility], [facility]. Patient encounter procedure Flakito Miguel A [facility].; [facility], [facility] Physical examination Flakito Miguel A [employer] [facility], [facility].; [facility], [facility] Physical examination Flakito [facility], [facility]. Physical examination Flakito [facility], [facility].; [facility], [facility] Physical examination Joshua rhodes MD Work Phone: [facility] [place] [facility] Routine gynecologica l examination Joshua Whitlock MD Work Phone: [facility], [facility] Procedures Date Procedure Procedure Detail Performing Clinician Start: 06-18-2025 Computed tomography of abdomen and pelvis with intravenous contrast Dr. Joshua Whitlock MD Work Phone: Start: 06-18-2025 Urnls dip stick/tablet reagent auto microscopy Dr. Joshua Whitlock MD Work Phone: Start: 06-18-2025 US scan of gallbladder Dr. Joshua Marie Work Phone: Start: 06-18-2025 X-ray of chest, PA and lateral views Dr. Joshua Whitlock MD Work Phone: Start: 06-18-[address] Joshua Whitlock MD Work Phone: Start: 06-18-2025 SARS-CoV-2, Influenza & RSV (PCR) Dr. Sacha Whitlock MD Work Phone: Start: 06-15-2025 Knhwz-6-Ocbvvslapym measurement Dr. Andrea Whitlock MD Work Phone: Comment on above: [employer] Electro[employer] Immunoassay(ECLIA)Values obtained with different assay methods or kits cannotbe used interchangeably. Results cannot be interpreted asabsolute evidence of the presence or absence of malignantdisease.This test is not interpretable in females.Performed at: [address] [id number] Director: Víctor Chen PhD, Phone: [phone] Start: 06-15-[address] Joshua Whitlock MD Work Phone: Start: 06-15-2025 Serum inorganic phosphate measurement Dr. Joshua Whitlock MD Work Phone: Start: 06-14-[address] Joshua Whitlock MD Work Phone: Start: 06-14-[address] Joshua Whitlock MD Work Phone: Start: 06-14-[address] Joshua Whitlock MD Work Phone: Start: 06-13-2025 Computed tomography of abdomen and pelvis with intravenous contrast Dr. Joshua Whitlock MD Work Phone: Start: 06-13-2025 US scan of gallbladder Dr. Joshua Marie Work Phone: Start: 06-13-2025 Urnls dip stick/tablet reagent auto microscopy Dr. Joshua Whitlock MD Work Phone: Start: 06-13-[address] Joshua Whitlock MD Work Phone: Start: 05-28-2025 End: 05-28-2025 Depression screening Joshua Whitlock MD Work Phone: Start: 05-28-2025 End: 05-28-2025 Pos clin depres scrn f/u doc Joshua rhodes MD Work Phone: Start: 05-28-2025 End: 05-28-2025 Scr dep neg, no plan reqd Joshua Whitlock MD Work Phone: Start: 08-11-2024 End: 08-10-2024 Depression screening Joshua Whitlock MD Work Phone: Start: 08-11-2024 End: 08-10-2024 Scr dep neg, no plan reqd Joshua Whitlock MD Work Phone: Start: 07-31-2024 End: 07-31-2024 Lab findings surveillance Flakito Starks PN Comment on above: CMP 95 Start: 07-31-2024 End: 07-31-2024 Lipid panel Flakito Grady LPN Comment on above: Abnormal. TC 196, HDL 49, TRI 108, LDL 1 25 Start: 11-04-2023 End: 11-04-2023 Total replacement of right knee joint Joshua Whitlock MD Work Phone: Start: 10-18-2023 MRI of lower extremity Dr. Joshua Whitlock Work Phone: Start: 06-04-2022 End: 06-04-2022 Depression screening Joshua Whitlock MD Work Phone: Start: 06-04-2022 End: 06-04-2022 Microscopic examination of cervical Papanicolaou smear Flakito Grady LPN Start: 06-04-2022 End: 06-04-2022 Pos clin depres scrn f/u doc Joshua rhodes MD Work Phone: Start: 05-04-2022 End: 05-04-2022 Lab findings surveillance Grace Velez Comment on above: 91 Start: 05-04-2022 End: 05-04-2022 Lipid panel Grace Garcia MA Comment on above: Abnormal. Start: 09-16-2015 End: 09-16-2015 Bx skin subcutaneous&/mucous membrane 1 lesion Joshua Whitlock MD Work Phone: Start: 09-25-2011 End: 10-02-2011 Us pelvic nonobstetric real-time image complete Joshua Whitlock MD Work Phone: Breast cancer screening declined Mammogram declined (Renamed from Breast screening declined) Joshua Whitlock MD Work Phone: Breast cancer screening declined Mammogram declined (Renamed from Breast screening declined) Flakito Miguel A [employer] Cataract extraction and insertion of intraocular lens Grace Garcia MA Comment on above: 2006 Cataract extraction and insertion of intraocular lens Flakito Miguel A [employer] Comment on above: 2006 section Grace marie MA Comment on above: 2006 Dr Marrero , heavy bleeding section Flakito Maso n [employer] Comment on above: 2006 Dr Marrero , heavy bleeding plantar fasciitis Grace Zapien od, MA plantar fasciitis Flakito Mas on [employer] Total replacement of right knee joint Joshua Whitlock MD Work Phone: Plan of Treatment Date Care Activity Detail Author Start: 2043 RSV Immunization for Adults (1 - 1-dose 75+ series) RSV Immunization for Adults (1 - 1-dose 75+ series) [facility] Start: 02-02-2030 DTaP/Tdap/Td Vaccines (2 - Td or Tdap) DTaP/Tdap/Td Vaccines (2 - Td or Tdap) [facility] Start: 06-26-2025 End: 06-26-2025 Esophagoscopy flexible transoral ultrasound exam ESOPHAGOSCOPIC ULTRASOUND EXAM Pancreatic mass 06/26/2025 10:05 AM EDT [facility] Start: 06-18-2025 [facility] Start: 06-15-2025 Patient discharge [facility] Start: 06-13-2025 Following clinical pathway protocol [facility] Start: 06-13-2025 Ambulation without limitation [facility] Start: 06-13-2025 Assessment of risk of venous thromboembolism [facility] Start: 06-13-2025 Insertion of catheter into peripheral vein [facility] Start: 06-13-2025 Measuring intake and output [facility] Start: 06-13-2025 Oxygen therapy [facility] Start: 06-13-2025 Providing care according to standard [facility] Start: 06-13-2025 Referral to gastroenterology service [facility] Start: 06-13-2025 Referral to service [facility] Start: 06-13-2025 [facility] Start: 06-13-2025 Hospital admission, emergency, from emergency room, medical nature [facility] Start: 06-13-2025 Verification routine [facility] Start: 06-13-2025 Admission procedure [facility] Start: 06-04-2025 COVID-19 Vaccine () COVID-19 Vaccine () [facility] Start: 06-04-2025 Influenza vaccination Influenza Vaccine (#1) [facility] Start: 05-28-2025 Patient encounter procedure [facility] Start: 05-04-2025 Lipid panel LIPID PANEL (08287) Start: 04-May-2025 14:49-04:00 Request [facility].; [facility] Start: 05-04-2025 Comprehensive metabolic panel CMP w/ GFR* ([id number]) Start: 04-May-2025 14:49-04:00 Request [facility].; [employer] Start: 08-11-2024 Patient encounter procedure [facility]. Start: 07-31-2024 Lipid panel LIPID PANEL (86733) Start: 31-Jul-2024 Request [facility].; [facility]. Start: 07-31-2024 Comprehensive metabolic panel [employer], [employer] Start: 07-31-2024 Nursing evaluation of patient and report Medical; Nurse visit - BW sfb [facility]. Start: 31-Jul-2024 08:10-04:00 ROOM, PROCEDURE (DRAW) Appointment Request [facility] Start: 10-25-2023 Patient encounter procedure Medical; EXTENDED RTN - pre-op knee surg 11/10 [facility] Start: 25-Oct-2023 8:20 MD Joshua Whitlock [facility] Start: 2018 Zoster Vaccines (1 of 2) Zoster Vaccines (1 of 2) [facility] Start: 05-31-2018 End: 05-31-2018 Mri any jt lower extrem w/o contrast matrl Ankle,Left MRI W/O Contrast Date: 31-May-2018 [facility] Start: 2008 Screening for malignant neoplasm of breast Mammogram [facility] Start: 1998 Screening for malignant neoplasm of cervix [facility] Start: 1989 Screening for malignant neoplasm of cervix Pap Smear [facility] Start: 1987 Hepatitis B Vaccines (1 of 3 - 19+ 3-dose series) Hepatitis B Vaccines (1 of 3 - 19+ 3-dose series) [facility] Start: 1987 Pneumococcal Vaccine: 50+ Years (1 of 2 - PCV) Pneumococcal Vaccine: 50+ Years (1 of 2 - PCV) [facility] Start: 1986 Diabetes mellitus screening Diabetes Screening [facility] Start: 1986 Hepatitis C screening Hepatitis C Screening [facility] Start: 1980 Depression Monitoring Depression Monitoring [facility] Start: 1969 MMR Vaccines (1 of 1 - Standard series) MMR Vaccines (1 of 1 - Standard series) [facility] Start: 1968 HIV screening HIV Screening [facility] Start: 1968 Lipid panel Lipid Panel [facility] Start: 1968 Screening for malignant neoplasm of colon [facility] Ujwgi-[id number]. tumo r marker [Units/volume] in Serum or Plasma [facility] Cancer Ag 19-9 [Units/volume] in Serum or Plasma [facility] Carcinoembryonic Ag [Mass/volume] in Serum or Plasma [facility] Fine needle aspiration [facility] Work Phone: Comment on above: Release Upon Ordering for 1 Occurrences starting 06/26/2025, 1 completed Patient Education Abdominal Pain Medicine for Pain [facility] Work Phone: Immunizations Immunization Date Immunization Notes Care Provider Fa ralph 02-03-2020 tetanus toxoid, redu jennifer diphtheria toxoid, and acellular pertussis vaccine, adsorbed Joshua Whitlock MD Work Phone: [facility] Payers Date Payer Category Payer Private Health Insurance [id number] 2025 Commercial Managed C are - HMO [employer] C[employer]NA [id number] 2025 Unknown [id number] 2024 Private Health Insurance [id number] 2024 Self-pay [id number] 1970 Unknown [id number] ..[id number] .2.651 1970 Unknown [id number] ..[id number] .2.651 Unknown [id number] Unknown AULTCARE-CIGNA PLAN Unknown [id number] .[id number] .2.462 Unknown [id number] .[id number] .2.462 Unknown [id number] [id number] .2.462 Unknown [id number] 2.0.1.555318.3.579 .2.462 Unknown [id number] .0.1.568130.3.579 .2.462 Unknown [id number] 2.16.840.1.878195.3.579 .2.462 Unknown [id number] 2.16.840.1.065131.3.579 .2.462 Unknown [id number] 2.16.840.1.794498.3.579 .2.462 Unknown [id number] 2.16.840.1.104085.3.579 .2.462 Unknown [id number] 2.16.840.1.837661.3.579 .2.462 Unknown [id number] 2.16.840.1.667875.3.579 .2.462 Unknown [id number] 2.16.840.1.770652.3.579 .2.462 Social History Date Type Detail Facility Start: 06-26-2025 End: 06-04-2022 Alcohol Use Alcohol Use [facility] Exercise History: Exercise Histo ry: ; Light. [facility]; [employer] Tobacco Use: Tobacco Use: ; S mokes < 1 pack of cigarettes per day. [facility]. Start: 1970 Female [facility] Smokes < 1 pack of cigarettes per day [facility]; [employer] Work Phone: Start: 06-13-2025 End: 06-26-2025 Tobacco smoking status [facility] Smokes tobacco daily (finding) [facility] Start: 06-26-2025 Not [facility] Start: 06-15-2025 End: 06-19-2025 Tobacco smoking status [facility] Current Light tobacco smoker [facility] Start: 06-26-2025 Tobacco use and exposure Smokeless tobacco non-user [facility] Start: 06-26-2025 Alcoholic beverage intake Ex-drinker (finding) [facility] Start: 1970 Sex assigned at Not on file [facility] Start: 05-04-2022 Sex Female (finding) [facility] Medical Equipment Procedure Code Equipment Code Equipment Origin al Text Equipment Identifier Dates ERCP (endoscopic retrograde cholangiopancreatog [place]) Polymeric biliary stent, non-bioabsorbable ()[id number] FDA Start: 06-14-2025 ([id number]) Metal-backed patella prosthesis ()[id number] FDA Start: 09-25-2024 ([id number]) Coated knee femu r prosthesis ()[id number] FDA Start: 09-25-2024 ([id number]) Coated knee tibi a prosthesis ()[id number] FDA Start: 09-25-2024 ([id number]) Tibial insert ()[id number] FDA Start: 09-25-2024 Goals Date Patient Goal Desired Activity /State Functional Status Date Assessment Result Facility 06-15-2025 Functional status Bathroom Privilege [facility] Work Phone: Mental Status Date Assessment Result Facility 06-18-2025 Cognitive function Level Of Cons ciousness Awake;Alert;Appropriate;Follow s Commands [facility] Work Phone: 06-15-2025 Cognitive function Level Of Cons ciousness Awake;Alert;Appropriate;Follow s Commands [facility] Work Phone: 06-15-2025 Cognitive function Voice/Name [facility] Work Phone: Clinical Notes 09-15-2024 to 06-26-2025 Perioperative Nursing Note - Claudia Dunn RN - 06/26/2025 12:07 PM EDTOp Note - Preston Armas MD - 06/26/2025 9:33 AM EDTPerioperative Nursing Note - Claudia Dunn RN - 06/26/2025 12:07 PM EDT Note Date & Type Note Facility 06-26-2025 Miscellaneous Notes Pt report her pain is 1/10. Ambulated to rest room with independent steady gait. [facility] Name: Corie Lugo Procedure Date: 06/26/2025 9:33 AM Gender: Female Date of : 1970 Age: 54 Admit Type: Outpatient Note Status: Finalized Endoscopist: Preston Armas MD, [id number] Procedure: Upper EUS Indications: Suspected mass in pancreas on CT scan Corie Lugo is a 54 y.o. female who presents as a referral from Dr. Wallace and SARKIS Marinelli for further evaluation of a suspected pancreatic head mass. S/p ERCP with brushings that were inconclusive. Has had 6 months of progressive abdominal pain, nausea and weight loss. No known FH of GI related cancers. No prior h/o pancreatitis or biliary diseases. Findings: ENDOSCOPIC FINDING: : A widely patent, non-obstructing and mild Schatzki ring was found at the gastroesophageal junction. The exam of the esophagus was otherwise normal. The Z-line was regular and was found 33 cm from the incisors. A 3 cm hiatal hernia was present. Diffuse mild inflammation characterized by erythema was found in the stomach. The exam of the stomach was otherwise normal. There is no endoscopic evidence of bleeding, ulceration, varices or tumor in the stomach. The duodenal bulb, first portion of the duodenum and second portion of the duodenum were normal. ENDOSONOGRAPHIC FINDING: : A round mass was identified in the uncinate process of the pancreas. The mass was hypoechoic. The mass measured 28 mm by 25 mm in maximal cross-sectional diameter. The endosonographic borders were well-defined. There was sonographic evidence suggesting invasion into the portal vein (manifested by interface loss greater than or equal to 15 mm). The remainder of the pancreas was examined. The endosonographic appearance of parenchyma and the upstream pancreatic duct indicated duct dilation, a maximum duct diameter of 7 mm and parenchymal atrophy. Fine needle biopsy was performed. Color Doppler imaging was utilized prior to needle puncture to confirm a lack of significant vascular structures within the needle path. Four passes were made with the 22 gauge Acquire biopsy needle using a transduodenal approach. A visible core of tissue was obtained. Preliminary cytologic examination and touch preps were performed. Preliminary cytology is suspicious for malignancy (final results are pending). Verification of patient identification for the specimen was done. Estimated blood loss was minimal. A few malignant-appearing lymph nodes were visualized in the celiac region (level 20), peripancreatic region and siomara hepatis region with the ultrasound probe located 22 cm from the incisors. These were ten mm from the primary tumor. The largest measured 11 mm by 13 mm in maximal cross-sectional diameter. The nodes were irregular, hypoechoic and had well defined margins. A cyst was found in the left lobe of the liver and measured 22 mm by 20 mm in maximal cross-sectional diameter. The cyst was anechoic. It was without septae. The outer wall of the lesion was not seen. Visualized portions of the liver, spleen, left adrenal gland and left kidney were normal on ultrasound examination. Impression: - Widely patent, non-obstructing and mild Schatzki ring. The esophagus was otherwise normal. - Z-line regular, 33 cm from the incisors. - 3 cm hiatal hernia. - Mild diffuse gastritis, characterized by erythema. - Normal duodenal bulb, first portion of the duodenum and second portion of the duodenum. - A 28 mm by 25 mm mass was identified in the uncinate process of the pancreas. Fine needle biopsy performed. Preliminary LISA concerning for malignancy. - A few malignant-appearing lymph nodes were visualized in the celiac region (level 20), peripancreatic region and siomara hepatis region. - A benign cyst was found in the left lobe of the liver and measured 22 mm by 20 mm. - Visualized portions of the liver, spleen, left adrenal gland and left kidney were normal on ultrasound examination. Recommendation: - The patient will be observed post-procedure, until all discharge criteria are met. - Discharge patient to home. - Observe patient's clinical course following today's procedure with therapeutic intervention. - Watch for complications post-procedure, including fevers, infection, bleeding and perforation. - Advance diet as tolerated today. - Continue present medications. - Await final cytology results. - Return to referring physicians as previously scheduled. - The findings and recommendations were discussed with the patient and their family. - Patient has a contact number available for emergencies. The signs and symptoms of potential delayed complications were discussed with the patient. Return to normal activities tomorrow. Written discharge instructions were provided to the patient. Referring MD: Bev Stoner MD, Killian Wallace MD, SARKIS Marinelli Medicines: Monitored Anesthesia Care Procedure: Pre-Anesthesia Assessment: - Prior to the procedure, a History and Physical was performed, and patient medications and allergies were reviewed. The patient's tolerance of previous anesthesia was also reviewed. The risks and benefits of the procedure and the sedation options and risks were discussed with the patient. All questions were answered, and informed consent was obtained. Prior Anticoagulants: The patient has taken no anticoagulant or antiplatelet agents. ASA Grade Assessment: III - A patient with severe systemic disease. After reviewing the risks and benefits, the patient was deemed in satisfactory condition to undergo the procedure. After obtaining informed consent, the endoscope was passed under direct vision. Throughout the procedure, the patient's blood pressure, pulse, and oxygen saturations were monitored continuously. The Endoscope was introduced through the mouth, and advanced to the second part of duodenum. The Endosonoscope was introduced through the mouth, and advanced to the second part of duodenum. After obtaining informed consent, the endoscope was passed under direct vision. Throughout the procedure, the patient's blood pressure, pulse, and oxygen saturations were monitored continuously.The upper EUS was accomplished without difficulty. The patient tolerated the procedure well. Complications: No immediate complications. Procedure Code(s): --- Professional --- 81666, Esophagogastroduodenoscopy, flexible, transoral; with transendoscopic ultrasound-guided intramural or transmural fine needle aspiration/biopsy(s), (includes endoscopic ultrasound examination limited to the esophagus, stomach or duodenum, and adjacent structures) --- Technical --- 40191, Esophagogastroduodenoscopy, flexible, transoral; with transendoscopic ultrasound-guided intramural or transmural fine needle aspiration/biopsy(s), (includes endoscopic ultrasound examination limited to the esophagus, stomach or duodenum, and adjacent structures) Diagnosis Code(s): --- Professional --- K22.2, Esophageal obstruction K44.9, Diaphragmatic hernia without obstruction or gangrene K29.70, Gastritis, unspecified, without bleeding K86.89, Other specified diseases of pancreas I89.9, Noninfective disorder of lymphatic vessels and lymph nodes, unspecified K76.89, Other specified diseases of liver R93.3, Abnormal findings on diagnostic imaging of other parts of digestive tract --- Technical --- K22.2, Esophageal obstruction K44.9, Diaphragmatic hernia without obstruction or gangrene K29.70, Gastritis, unspecified, without bleeding K86.89, Other specified diseases of pancreas I89.9, Noninfective disorder of lymphatic vessels and lymph nodes, unspecified K76.89, Other specified diseases of liver R93.3, Abnormal findings on diagnostic imaging of other parts of digestive tract CPT copyright 2021 [employer] [place] [employer]. All rights reserved. The codes documented in this report are preliminary and upon physician coder review may be revised to meet current compliance requirements. Attending Participation: I personally performed the entire procedure. Preston Armas MD 06/26/2025 11:04:13 AM This report has been signed electronically. Number of Addenda: 0 Note Initiated On: 06/26/2025 9:33 AM documented in this encounter [facility] 06-26-2025 Nurse Note Pt report her pain is 1/10. Ambulated to rest room with independent steady gait. Claudia Dunn RN [facility] 06-26-2025 Note Patient: Corie Quiñones er Procedure Summary Date: 06/26/25 Room / Location: [facility] Gastroenterology Anesthesia Start: 1004 Anesthesia Stop: 1052 Procedure: ESOPHAGOSCOPIC ULTRASOUND EXAM Diagnosis: Pancreatic mass Providers: Preston Armas MD Responsible Provider: Eris Ríos MD Anesthesia Type: TIVA ASA Status: 2 Anesthesia Type: TIVA Vitals Value Taken Time BP 112/74 06/26/25 10:46 Temp 36.1 ?C (97 ?F) 06/26/25 10:46 Pulse 65 06/26/25 10:46 Resp 16 06/26/25 10:46 SpO2 100 % 06/26/25 10:46 Anesthesia Post Evaluation Patient location during evaluation: PACU Patient participation: waiting for patient participation Level of consciousness: sleepy but arousable Pain management: satisfactory to patient Airway patency: patent Dental Injury: no Cardiovascular status: acceptable, blood pressure returned to baseline and hemodynamically stable Respiratory status: acceptable and spontaneous ventilation Hydration status: euvolemic Nausea/Vomiting: controlled No notable events documented. Patient can be discharged once all PACU criteria has been met. [facility] 06-26-2025 Note Patient: Corie Quiñones er Procedure Summary Date: 06/26/25 Room / Location: [facility] Gastroenterology Anesthesia Start: 1004 Anesthesia Stop: 105 Procedure: ESOPHAGOSCOPIC ULTRASOUND EXAM Diagnosis: Pancreatic mass Providers: Preston Armas MD Responsible Provider: Eris Ríos MD Anesthesia Type: TIVA ASA Status: 2 Anesthesia Type: TIVA Vitals Value Taken Time BP 112/74 06/26/25 10:46 Temp 36.1 ?C (97 ?F) 06/26/25 10:46 Pulse 65 06/26/25 10:46 Resp 16 06/26/25 10:46 SpO2 100 % 06/26/25 10:46 Anesthesia Post Evaluation Patient participation: complete - patient cannot participate Level of consciousness: sleepy but arousable Pain management: satisfactory to patient Multimodal analgesia pain management approach Airway patency: patent Two or more strategies used to mitigate risk of obstructive sleep apnea Respiratory status: acceptable Cardiovascular status: acceptable Hydration status: acceptable No notable events documented. MIPS #430 PONV Patient did not receive an inhalational anesthetic (XX430) MIPS # 424 Perioperative Temperature Management Anesthesia time was less than 60 minutes (4256F) MIPS #477 Multimodal Pain Management Not emergent case Patient was not administered multimodal pain management (G2149) Patient reports no pain in PACU (G2149) MIPS #404 Anesthesiology Smoking Abstinence The patient is a current smoker (G9642) (e.g. cigarette, cigar, pipe, e-cigarette/vaping/marijuana) The patient underwent an elective surgery or procedure requiring anesthesia (G9643) The patient did not receive preop smoking cessation instructions prior to the day of surgery or procedure by , [employer] supervisor proxy staff ([id number]) I completed my handoff to the receiving clinician during which we: 1. Identified the patient 2. Identified the responsible provider 3. Reviewed the pertinent medical history 4. Discussed the surgical course 5. Reviewed intra-op anesthesia management and issues during anesthesia 6. Set expectations for post-procedure period 7. Allowed opportunity for questions and acknowledgement of understanding. [facility] 06-26-2025 History and physical note Images from the original note were not included. GASTROENTEROLOGY PREPROCEDURE H&P 06/26/2025 Patient: Corie Lugo : 1970 Primary Care Physician: Bev Stoner MD HISTORY OF PRESENT ILLNESS: Corie Lugo is a 54 y.o. female who presents as a referral from Dr. Wallace for further evaluation of a suspected pancreatic head mass. S/p ERCP with brushings that were inconclusive. Has had 6 months of progressive abdominal pain, nausea and weight loss. No known FH of GI related cancers. No prior h/o pancreatitis or biliary diseases. REVIEW OF SYSTEMS: A complete 10 point review of systems was obtained. Please see the HPI for pertinent positives and negatives. All other systems reviewed were found to be negative or noncontributory. PAST MEDICAL HISTORY: Medical History[1] PAST SURGICAL HISTORY: Surgical History[2] SOCIAL HISTORY: TOBACCO: reports that she has been smoking cigarettes. She has never used smokeless tobacco. ETOH: reports that she does not currently use alcohol. DRUGS: reports no history of drug use. FAMILY HISTORY: Family History[3] MEDICATIONS: Prior to Admission medications Medication Sig Start Date End Date Taking? Authorizing Provider b complex vitamins capsule Take 1 capsule by mouth daily. Yes Historical Provider, cholecalciferol (Vitamin D-3) 25 MCG (1000 UT) capsule Take 1,000 Units by mouth daily. Yes Historical Provider, ciprofloxacin (Cipro) 500 MG tablet 500 mg. 06/15/25 Yes Historical Provider, diclofenac (Voltaren) 75 MG EC tablet Diclofenac Sodium 75 mg tablet,delayed release (DR/EC) Active 75 mg PO TWICE A DAY August 29, 2024 1:00am 08/29/24 Yes Historical Provider, Loratadine 10 MG capsule Loratadine 10 mg capsule Active 10 mg PO DAILY August 29, 2024 1:00am 08/29/24 Yes Historical Provider, Melatonin 3 MG capsule 3 mg. 08/29/24 Yes Historical Provider, metoclopramide (Reglan) 10 MG tablet Take 10 mg by mouth. Yes Historical Provider, metroNIDAZOLE (Flagyl) 500 MG tablet 500 mg. 06/15/25 Yes Historical Provider, omeprazole (PriLOSEC) [address] capsule Take 40 mg by mouth every morning (before breakfast). Do not crush or chew. Yes Historical Provider, oxyCODONE-acetaminophen (Percocet) 5-325 MG tablet 1 tablet. 06/18/25 Yes Historical Provider, pancrelipase, Peq-Rhsj-Wenw, (Creon) 24612-551473 units capsule delayed-release particles capsule Fcbjgf-Tizedhky-Usxvtcp (Creon) 36,000-114,000- 180,000 unit capsule,delayed release(DR/EC) Active 2 NMA PO TWICE A DAY June 19, 2025 12:00am administer with meals and/or snacks 06/19/25 Yes Historical Provider, sucralfate (Carafate) 1 g tablet Take 1 g by mouth 4 times daily (before meals and nightly). Yes Historical Provider, traMADol (Ultram) 50 MG tablet Take 50 mg by mouth. Yes Historical Provider, Current Medications[4] ALLERGIES: Allergies[5] OBJECTIVE: Vitals: Blood pressure 107/62, pulse 57, temperature 36.3 C (97.4 F), temperature source Temporal, resp. rate 18, weight 187 lb (84.8 kg), SpO2 99%. General appearance: Alert and oriented, NAD, conversational HEENT: NC/AT, PERRL, sclera anicteric Neck: Supple, normal ROM Respiratory: Normal respiratory effort. CTA Cardiovascular: Regular rate and rhythm Abdomen: Soft, non-tender, non-distended Skin: Skin color, texture, turgor normal. No rashes or lesions. Neurologic: Grossly intact LABS: Reviewed IMAGING/PROCEDURES Reviewed ASSESSMENT Corie Lugo is a 54 y.o. female here for EUS evaluation of a suspected 1.7 cm pancreatic uncinate process mass. PLAN EGD/EUS The benefits, alternatives, and risks of the procedure(s) including (but not exclusive to) pain, sore throat, bleeding, perforation, infection, nausea, vomiting, aspiration, hypoxia/hypotension/allergic reaction(s) due to sedatives, phlebitis, need for hospitalization, need for transfusions, need for antibiotic therapy, need for surgery, and likelihood of missing a lesion, were explained to the patient/guardian/responsible accompanying adult who is agreeable. Preston Armas MD [1] History reviewed. No pertinent past medical history. [2] Past Surgical History: Procedure Laterality Date ANKLE SURGERY Left CARPAL TUNNEL RELEASE Right ESOPHAGOGASTRODUODENOSCOPY panc stent, Dr Wallace HYSTEROSCOPY ablation TOTAL KNEE ARTHROPLASTY left and right 2023 VAGINAL DELIVERY 1987, 1989 [3] No family history on file. [4] Current Facility-Administered Medications Medication Dose Route Frequency Provider Last Rate Last Admin ondansetron (Zofran) injection 4 mg 4 mg IntraVENous Once PRN Preston Armas MD sodium chloride 0.9 % infusion 5-250 mL/hr IntraVENous PRN Preston Armas MD sodium chloride 0.9 % infusion 5-250 mL/hr IntraVENous PRN Preston Armas MD sodium chloride 0.9% (NS) flush 10 mL 10 mL IntraVENous 2 times per day Preston Armas MD sodium chloride 0.9% (NS) flush 10 mL 10 mL IntraVENous PRN Preston Armas MD sodium chloride 0.9% (NS) flush 10 mL 10 mL IntraVENous 2 times per day Preston Armas MD sodium chloride 0.9% (NS) flush 10 mL 10 mL IntraVENous PRN Preston Armas MD [5] No Known Allergies [facility] Phone: 06-26-2025 Note GASTROENTEROLOGY PRE PROCEDURE H&P 06/26/2025 Patient: Corie Lugo : 1970 Primary Care Physician: Bev Stoner MD HISTORY OF PRESENT ILLNESS: Corie Lugo is a 54 y.o. female who presents as a referral from Dr. Wallace for further evaluation of a suspected pancreatic head mass. S/p ERCP with brushings that were inconclusive. Has had 6 months of progressive abdominal pain, nausea and weight loss. No known FH of GI related cancers. No prior h/o pancreatitis or biliary diseases. REVIEW OF SYSTEMS: A complete 10 point review of systems was obtained. Please see the HPI for pertinent positives and negatives. All other systems reviewed were found to be negative or noncontributory. PAST MEDICAL HISTORY: Medical History[1] PAST SURGICAL HISTORY: Surgical History[2] SOCIAL HISTORY: TOBACCO: reports that she has been smoking cigarettes. She has never used smokeless tobacco. ETOH: reports that she does not currently use alcohol. DRUGS: reports no history of drug use. FAMILY HISTORY: Family History[3] MEDICATIONS: Prior to Admission medications Medication Sig Start Date End Date Taking? Authorizing Provider b complex vitamins capsule Take 1 capsule by mouth daily. Yes Historical Provider, cholecalciferol (Vitamin D-3) 25 MCG (1000 UT) capsule Take 1,000 Units by mouth daily. Yes Historical Provider, ciprofloxacin (Cipro) 500 MG tablet 500 mg. 06/15/25 Yes Historical Provider, diclofenac (Voltaren) 75 MG EC tablet Diclofenac Sodium 75 mg tablet,delayed release (DR/EC) Active 75 mg PO TWICE A DAY August 29, 2024 1:00am 08/29/24 Yes Historical Provider, Loratadine 10 MG capsule Loratadine 10 mg capsule Active 10 mg PO DAILY August 29, 2024 1:00am 08/29/24 Yes Historical Provider, Melatonin 3 MG capsule 3 mg. 08/29/24 Yes Historical Provider, metoclopramide (Reglan) 10 MG tablet Take 10 mg by mouth. Yes Historical Provider, metroNIDAZOLE (Flagyl) 500 MG tablet 500 mg. 06/15/25 Yes Historical Provider, omeprazole (PriLOSEC) [address] capsule Take 40 mg by mouth every morning (before breakfast). Do not crush or chew. Yes Historical Provider, oxyCODONE-acetaminophen (Percocet) 5-325 MG tablet 1 tablet. 06/18/25 Yes Historical Provider, pancrelipase, Xrt-Pvxf-Hzll, (Creon) 51259-577565 units capsule delayed-release particles capsule Vtbegu-Ukmlsdnt-Wctjual (Creon) 36,000-114,000- 180,000 unit capsule,delayed release(DR/EC) Active 2 NMA PO TWICE A DAY June 19, 2025 12:00am administer with meals and/or snacks 06/19/25 Yes Historical Provider, sucralfate (Carafate) 1 g tablet Take 1 g by mouth 4 times daily (before meals and nightly). Yes Historical Provider, traMADol (Ultram) 50 MG tablet Take 50 mg by mouth. Yes Historical Provider, Current Medications[4] ALLERGIES: Allergies[5] OBJECTIVE: Vitals: Blood pressure 107/62, pulse 57, temperature 36.3 ?C (97.4 ?F), temperature source Temporal, resp. rate 18, weight 187 lb (84.8 kg), SpO2 99%. General appearance: Alert and oriented, NAD, conversational HEENT: NC/AT, PERRL, sclera anicteric Neck: Supple, normal ROM Respiratory: Normal respiratory effort. CTA Cardiovascular: Regular rate and rhythm Abdomen: Soft, non-tender, non-distended Skin: Skin color, texture, turgor normal. No rashes or lesions. Neurologic: Grossly intact LABS: Reviewed IMAGING/PROCEDURES Reviewed ASSESSMENT Corie Lugo is a 54 y.o. female here for EUS evaluation of a suspected 1.7 cm pancreatic uncinate process mass. PLAN EGD/EUS The benefits, alternatives, and risks of the procedure(s) including (but not exclusive to) pain, sore throat, bleeding, perforation, infection, nausea, vomiting, aspiration, hypoxia/hypotension/allergic reaction(s) due to sedatives, phlebitis, need for hospitalization, need for transfusions, need for antibiotic therapy, need for surgery, and likelihood of missing a lesion, were explained to the patient/guardian/responsible accompanying adult who is agreeable. Preston Armas MD [1] History reviewed. No pertinent past medical history. [2] Past Surgical History: Procedure Laterality Date ANKLE SURGERY Left CARPAL TUNNEL RELEASE Right ESOPHAGOGASTRODUODENOSCOPY panc stent, Dr Wallace HYSTEROSCOPY ablation TOTAL KNEE ARTHROPLASTY left and right 2023 VAGINAL DELIVERY 1987, 1989 [3] No family history on file. [4] Current Facility-Administered Medications Medication Dose Route Frequency Provider Last Rate Last Admin ondansetron (Zofran) injection 4 mg 4 mg IntraVENous Once PRN Preston Armas MD sodium chloride 0.9 % infusion 5-250 mL/hr IntraVENous PRN Preston Armas MD sodium chloride 0.9 % infusion 5-250 mL/hr IntraVENous PRN Preston Armas MD sodium chloride 0.9% (NS) flush 10 mL 10 mL IntraVENous 2 times per day Preston Armas MD sodium chloride 0.9% (NS) flush 10 mL 10 mL Int (more content not included)... [facility] 06-26-2025 History and physical note Images from the original note were not included. GASTROENTEROLOGY PREPROCEDURE H&P 06/26/2025 Patient: Corie Lugo : 1970 Primary Care Physician: Bev Stoner MD HISTORY OF PRESENT ILLNESS: Corie Lugo is a 54 y.o. female who presents as a referral from Dr. Wallace for further evaluation of a suspected pancreatic head mass. S/p ERCP with brushings that were inconclusive. Has had 6 months of progressive abdominal pain, nausea and weight loss. No known FH of GI related cancers. No prior h/o pancreatitis or biliary diseases. REVIEW OF SYSTEMS: A complete 10 point review of systems was obtained. Please see the HPI for pertinent positives and negatives. All other systems reviewed were found to be negative or noncontributory. PAST MEDICAL HISTORY: Medical History[1] PAST SURGICAL HISTORY: Surgical History[2] SOCIAL HISTORY: TOBACCO: reports that she has been smoking cigarettes. She has never used smokeless tobacco. ETOH: reports that she does not currently use alcohol. DRUGS: reports no history of drug use. FAMILY HISTORY: Family History[3] MEDICATIONS: Prior to Admission medications Medication Sig Start Date End Date Taking? Authorizing Provider b complex vitamins capsule Take 1 capsule by mouth daily. Yes Historical Provider, cholecalciferol (Vitamin D-3) 25 MCG (1000 UT) capsule Take 1,000 Units by mouth daily. Yes Historical Provider, ciprofloxacin (Cipro) 500 MG tablet 500 mg. 06/15/25 Yes Historical Provider, diclofenac (Voltaren) 75 MG EC tablet Diclofenac Sodium 75 mg tablet,delayed release (DR/EC) Active 75 mg PO TWICE A DAY August 29, 2024 1:00am 08/29/24 Yes Historical Provider, Loratadine 10 MG capsule Loratadine 10 mg capsule Active 10 mg PO DAILY August 29, 2024 1:00am 08/29/24 Yes Historical Provider, Melatonin 3 MG capsule 3 mg. 08/29/24 Yes Historical Provider, metoclopramide (Reglan) 10 MG tablet Take 10 mg by mouth. Yes Historical Provider, metroNIDAZOLE (Flagyl) 500 MG tablet 500 mg. 06/15/25 Yes Historical Provider, omeprazole (PriLOSEC) [address] capsule Take 40 mg by mouth every morning (before breakfast). Do not crush or chew. Yes Historical Provider, oxyCODONE-acetaminophen (Percocet) 5-325 MG tablet 1 tablet. 06/18/25 Yes Historical Provider, pancrelipase, Cny-Wkvo-Niuv, (Creon) 06019-856146 units capsule delayed-release particles capsule Akflyv-Rkjmdcny-Wskcorq (Creon) 36,000-114,000- 180,000 unit capsule,delayed release(DR/EC) Active 2 NMA PO TWICE A DAY June 19, 2025 12:00am administer with meals and/or snacks 06/19/25 Yes Historical Provider, sucralfate (Carafate) 1 g tablet Take 1 g by mouth 4 times daily (before meals and nightly). Yes Historical Provider, traMADol (Ultram) 50 MG tablet Take 50 mg by mouth. Yes Historical Provider, Current Medications[4] ALLERGIES: Allergies[5] OBJECTIVE: Vitals: Blood pressure 107/62, pulse 57, temperature 36.3 C (97.4 F), temperature source Temporal, resp. rate 18, weight 187 lb (84.8 kg), SpO2 99%. General appearance: Alert and oriented, NAD, conversational HEENT: NC/AT, PERRL, sclera anicteric Neck: Supple, normal ROM Respiratory: Normal respiratory effort. CTA Cardiovascular: Regular rate and rhythm Abdomen: Soft, non-tender, non-distended Skin: Skin color, texture, turgor normal. No rashes or lesions. Neurologic: Grossly intact LABS: Reviewed IMAGING/PROCEDURES Reviewed ASSESSMENT Corie Lugo is a 54 y.o. female here for EUS evaluation of a suspected 1.7 cm pancreatic uncinate process mass. PLAN EGD/EUS The benefits, alternatives, and risks of the procedure(s) including (but not exclusive to) pain, sore throat, bleeding, perforation, infection, nausea, vomiting, aspiration, hypoxia/hypotension/allergic reaction(s) due to sedatives, phlebitis, need for hospitalization, need for transfusions, need for antibiotic therapy, need for surgery, and likelihood of missing a lesion, were explained to the patient/guardian/responsible accompanying adult who is agreeable. Preston Armas MD [1] History reviewed. No pertinent past medical history. [2] Past Surgical History: Procedure Laterality Date ANKLE SURGERY Left CARPAL TUNNEL RELEASE Right ESOPHAGOGASTRODUODENOSCOPY panc stent, Dr Wallace HYSTEROSCOPY ablation TOTAL KNEE ARTHROPLASTY left and right 2023 VAGINAL DELIVERY 1987, 1989 [3] No family history on file. [4] Current Facility-Administered Medications Medication Dose Route Frequency Provider Last Rate Last Admin ondansetron (Zofran) injection 4 mg 4 mg IntraVENous Once PRN Preston Armas MD sodium chloride 0.9 % infusion 5-250 mL/hr IntraVENous PRN Preston Armas MD sodium chloride 0.9 % infusion 5-250 mL/hr IntraVENous PRN Preston Armas MD sodium chloride 0.9% (NS) flush 10 mL 10 mL IntraVENous 2 times per day Preston Armas MD sodium chloride 0.9% (NS) flush 10 mL 10 mL IntraVENous PRN Preston Armas MD sodium chloride 0.9% (NS) flush 10 mL 10 mL IntraVENous 2 times per day Preston Armas MD sodium chloride 0.9% (NS) flush 10 mL 10 mL IntraVENous PRN Preston Armas MD [5] No Known Allergies documented in this encounter [facility] 06-26-2025 Note Endoscopy Center- [facility] Patient Name: Corie Lugo Procedure Date: 06/26/2025 9:33 AM Gender: Female Date of : 1970 Age: 54 Admit Type: Outpatient Note Status: Finalized Endoscopist: Preston Armas MD, [id number] Procedure: Upper EUS Indications: Suspected mass in pancreas on CT scan Corie Lugo is a 54 y.o. female who presents as a referral from Dr. Wallace and SARKIS Marinelli for further evaluation of a suspected pancreatic head mass. S/p ERCP with brushings that were inconclusive. Has had 6 months of progressive abdominal pain, nausea and weight loss. No known FH of GI related cancers. No prior h/o pancreatitis or biliary diseases. Findings: ENDOSCOPIC FINDING: : A widely patent, non-obstructing and mild Schatzki ring was found at the gastroesophageal junction. The exam of the esophagus was otherwise normal. The Z-line was regular and was found 33 cm from the incisors. A 3 cm hiatal hernia was present. Diffuse mild inflammation characterized by erythema was found in the stomach. The exam of the stomach was otherwise normal. There is no endoscopic evidence of bleeding, ulceration, varices or tumor in the stomach. The duodenal bulb, first portion of the duodenum and second portion of the duodenum were normal. ENDOSONOGRAPHIC FINDING: : A round mass was identified in the uncinate process of the pancreas. The mass was hypoechoic. The mass measured 28 mm by 25 mm in maximal cross-sectional diameter. The endosonographic borders were well-defined. There was sonographic evidence suggesting invasion into the portal vein (manifested by interface loss greater than or equal to 15 mm). The remainder of the pancreas was examined. The endosonographic appearance of parenchyma and the upstream pancreatic duct indicated duct dilation, a maximum duct diameter of 7 mm and parenchymal atrophy. Fine needle biopsy was performed. Color Doppler imaging was utilized prior to needle puncture to confirm a lack of significant vascular structures within the needle path. Four passes were made with the 22 gauge Acquire biopsy needle using a transduodenal approach. A visible core of tissue was obtained. Preliminary cytologic examination and touch preps were performed. Preliminary cytology is suspicious for malignancy (final results are pending). Verification of patient identification for the specimen was done. Estimated blood loss was minimal. A few malignant-appearing lymph nodes were visualized in the celiac region (level 20), peripancreatic region and siomara hepatis region with the ultrasound probe located 22 cm from the incisors. These were ten mm from the primary tumor. The largest measured 11 mm by 13 mm in maximal cross-sectional diameter. The nodes were irregular, hypoechoic and had well defined margins. A cyst was found in the left lobe of the liver and measured 22 mm by 20 mm in maximal cross-sectional diameter. The cyst was anechoic. It was without septae. The outer wall of the lesion was not seen. Visualized portions of the liver, spleen, left adrenal gland and left kidney were normal on ultrasound examination. Impression: - Widely patent, non-obstructing and mild Schatzki ring. The esophagus was otherwise normal. - Z-line regular, 33 cm from the incisors. - 3 cm hiatal hernia. - Mild diffuse gastritis, characterized by erythema. - Normal duodenal bulb, first portion of the duodenum and second portion of the duodenum. - A 28 mm by 25 mm mass was identified in the uncinate process of the pancreas. Fine needle biopsy performed. Preliminary LISA concerning for malignancy. - A few malignant-appearing lymph nodes were visualized in the celiac region (level 20), peripancreatic region and siomara hepatis region. - A benign cyst was found in the left lobe of the liver and measured 22 mm by 20 mm. - Visualized portions of the liver, spleen, left adrenal gland and left kidney were normal on ultrasound examination. Recommendation: - The patient will be observed post-procedure, until all discharge criteria are met. - Discharge patient to home. - Observe patient's clinical course following today's procedure with therapeutic intervention. - Watch for complications post-procedure, including fevers, infection, bleeding and perforation. - Advance diet as tolerated today. - Continue present medications. - Await final cytology results. - Return to referring physicians as previously scheduled. - The findings and recommendations were discussed with the patient and their family. - Patient has a contact number available for emergencies. The signs and symptoms of potential delayed complications were discussed with the patient. Return to normal activities tomorrow. Written discharge instructions were provided to the patient. Referring MD: Bev Stoner MD, Killian Wallace MD, Alma Rosa Doty (more content not included)... [facility]26[facility]2025 [facility] Name: Corie Lugo Procedure Date: 06/26/2025 9:33 AM Gender: Female Date of : 1970 Age: 54 Admit Type: Outpatient Note Status: Finalized Endoscopist: Preston Armas MD, [id number] Procedure: Upper EUS Indications: Suspected mass in pancreas on CT scan Corie Lugo is a 54 y.o. female who presents as a referral from Dr. Wallace and SARKIS Marinelli for further evaluation of a suspected pancreatic head mass. S/p ERCP with brushings that were inconclusive. Has had 6 months of progressive abdominal pain, nausea and weight loss. No known FH of GI related cancers. No prior h/o pancreatitis or biliary diseases. Findings: ENDOSCOPIC FINDING: : A widely patent, non-obstructing and mild Schatzki ring was found at the gastroesophageal junction. The exam of the esophagus was otherwise normal. The Z-line was regular and was found 33 cm from the incisors. A 3 cm hiatal hernia was present. Diffuse mild inflammation characterized by erythema was found in the stomach. The exam of the stomach was otherwise normal. There is no endoscopic evidence of bleeding, ulceration, varices or tumor in the stomach. The duodenal bulb, first portion of the duodenum and second portion of the duodenum were normal. ENDOSONOGRAPHIC FINDING: : A round mass was identified in the uncinate process of the pancreas. The mass was hypoechoic. The mass measured 28 mm by 25 mm in maximal cross-sectional diameter. The endosonographic borders were well-defined. There was sonographic evidence suggesting invasion into the portal vein (manifested by interface loss greater than or equal to 15 mm). The remainder of the pancreas was examined. The endosonographic appearance of parenchyma and the upstream pancreatic duct indicated duct dilation, a maximum duct diameter of 7 mm and parenchymal atrophy. Fine needle biopsy was performed. Color Doppler imaging was utilized prior to needle puncture to confirm a lack of significant vascular structures within the needle path. Four passes were made with the 22 gauge Acquire biopsy needle using a transduodenal approach. A visible core of tissue was obtained. Preliminary cytologic examination and touch preps were performed. Preliminary cytology is suspicious for malignancy (final results are pending). Verification of patient identification for the specimen was done. Estimated blood loss was minimal. A few malignant-appearing lymph nodes were visualized in the celiac region (level 20), peripancreatic region and siomara hepatis region with the ultrasound probe located 22 cm from the incisors. These were ten mm from the primary tumor. The largest measured 11 mm by 13 mm in maximal cross-sectional diameter. The nodes were irregular, hypoechoic and had well defined margins. A cyst was found in the left lobe of the liver and measured 22 mm by 20 mm in maximal cross-sectional diameter. The cyst was anechoic. It was without septae. The outer wall of the lesion was not seen. Visualized portions of the liver, spleen, left adrenal gland and left kidney were normal on ultrasound examination. Impression: - Widely patent, non-obstructing and mild Schatzki ring. The esophagus was otherwise normal. - Z-line regular, 33 cm from the incisors. - 3 cm hiatal hernia. - Mild diffuse gastritis, characterized by erythema. - Normal duodenal bulb, first portion of the duodenum and second portion of the duodenum. - A 28 mm by 25 mm mass was identified in the uncinate process of the pancreas. Fine needle biopsy performed. Preliminary LISA concerning for malignancy. - A few malignant-appearing lymph nodes were visualized in the celiac region (level 20), peripancreatic region and siomara hepatis region. - A benign cyst was found in the left lobe of the liver and measured 22 mm by 20 mm. - Visualized portions of the liver, spleen, left adrenal gland and left kidney were normal on ultrasound examination. Recommendation: - The patient will be observed post-procedure, until all discharge criteria are met. - Discharge patient to home. - Observe patient's clinical course following today's procedure with therapeutic intervention. - Watch for complications post-procedure, including fevers, infection, bleeding and perforation. - Advance diet as tolerated today. - Continue present medications. - Await final cytology results. - Return to referring physicians as previously scheduled. - The findings and recommendations were discussed with the patient and their family. - Patient has a contact number available for emergencies. The signs and symptoms of potential delayed complications were discussed with the patient. Return to normal activities tomorrow. Written discharge instructions were provided to the patient. Referring MD: Bev Stoner MD, Killian Wallace MD, SARKIS Marinelli Medicines: Monitored Anesthesia Care Procedure: Pre-Anesthesia Assessment: - Prior to the procedure, a History and Physical was performed, and patient medications and allergies were reviewed. The patient's tolerance of previous anesthesia was also reviewed. The risks and benefits of the procedure and the sedation options and risks were discussed with the patient. All questions were answered, and informed consent was obtained. Prior Anticoagulants: The patient has taken no anticoagulant or antiplatelet agents. ASA Grade Assessment: III - A patient with severe systemic disease. After reviewing the risks and benefits, the patient was deemed in satisfactory condition to undergo the procedure. After obtaining informed consent, the endoscope was passed under direct vision. Throughout the procedure, the patient's blood pressure, pulse, and oxygen saturations were monitored continuously. The Endoscope was introduced through the mouth, and advanced to the second part of duodenum. The Endosonoscope was introduced through the mouth, and advanced to the second part of duodenum. After obtaining informed consent, the endoscope was passed under direct vision. Throughout the procedure, the patient's blood pressure, pulse, and oxygen saturations were monitored continuously.The upper EUS was accomplished without difficulty. The patient tolerated the procedure well. Complications: No immediate complications. Procedure Code(s): --- Professional --- 92092, Esophagogastroduodenoscopy, flexible, transoral; with transendoscopic ultrasound-guided intramural or transmural fine needle aspiration/biopsy(s), (includes endoscopic ultrasound examination limited to the esophagus, stomach or duodenum, and adjacent structures) --- Technical --- 43858, Esophagogastroduodenoscopy, flexible, transoral; with transendoscopic ultrasound-guided intramural or transmural fine needle aspiration/biopsy(s), (includes endoscopic ultrasound examination limited to the esophagus, stomach or duodenum, and adjacent structures) Diagnosis Code(s): --- Professional --- K22.2, Esophageal obstruction K44.9, Diaphragmatic hernia without obstruction or gangrene K29.70, Gastritis, unspecified, without bleeding K86.89, Other specified diseases of pancreas I89.9, Noninfective disorder of lymphatic vessels and lymph nodes, unspecified K76.89, Other specified diseases of liver R93.3, Abnormal findings on diagnostic imaging of other parts of digestive tract --- Technical --- K22.2, Esophageal obstruction K44.9, Diaphragmatic hernia without obstruction or gangrene K29.70, Gastritis, unspecified, without bleeding K86.89, Other specified diseases of pancreas I89.9, Noninfective disorder of lymphatic vessels and lymph nodes, unspecified K76.89, Other specified diseases of liver R93.3, Abnormal findings on diagnostic imaging of other parts of digestive tract CPT copyright 2 [employer] [place] [employer]. All rights reserved. The codes documented in this report are preliminary and upon physician coder review may be revised to meet current compliance requirements. Attending Participation: I personally performed the entire procedure. Preston Armas MD 06/26/2025 11:04:13 AM This report has been signed electronically. Number of Addenda: 0 Note Initiated On: 06/26/2025 9:33 AM [facility] 06-26-2025 Note Patient: Corie portillo Procedure Information Date/Time: 06/26/25 0900 Procedure: ESOPHAGOSCOPIC ULTRASOUND EXAM - 90 minutes please Location: [place] [address] / [facility] Gastroenterology Providers: Preston Armas MD Relevant Problems No relevant active problems Past Medical History: No past medical history on file. Past Surgical History: Past Surgical History: No date: ANKLE SURGERY; Left No date: CARPAL TUNNEL RELEASE; Right No date: ESOPHAGOGASTRODUODENOSCOPY Comment: christy dyer Dr Friend No date: HYSTEROSCOPY Comment: ablation No date: TOTAL KNEE ARTHROPLASTY Comment: left and right 2023 No date: VAGINAL DELIVERY Comment: 1989 Social History: TOBACCO: reports that she has been smoking cigarettes. She has never used smokeless tobacco. ETOH: reports that she does not currently use alcohol. Social History Substance and Sexual Activity Drug Use Never Family History: Family History[1] Screening: unknown Clinical information reviewed: Tobacco Allergies Meds Med Hx Surg Hx Fam Hx Soc Hx Physical Exam Airway Mallampati: III TM distance: >3 FB Neck ROM: full Mouth Open: normal Cardiovascular Dental dentition normal Pulmonary Abdominal Anesthesia Plan Any family history or previous problems with anesthesia no We discussed risks, benefits, alternatives and likelihood of success with the Patient. ASA 2 TIVA Any family history or previous problems with anesthesia no The patient is a current smoker. Patient was not previously instructed to abstain from smoking on day of procedure. Patient did not smoke on day of procedure. patient is NPO appropriate JENS Screening Labs: No results found for: WBC, HGB, HCT, MCV, PLT No results found for: SODIUM, NA, POTASSIUM, K, CHLORIDE, CL, CO2, BUN, CREATININE, GLUCOSE, CALCIUM, PROT, BILIRUBINFL, ALKPHOS, AST, ALT, EGFR, GLOB No echocardiogram results found for the past 14 days No results found for this or any previous visit. Equipment Requests: Additional Equipment Requests [1] No family history on file. [facility] 06-18-2025 Radiology Diagnostic study note [facility] [address] [place] [id number] Gallbladder MR#: [id number] Acct: [id number] Name: CORIE LUGO Rep #: [id number] : 1970 F 54 From: Kunal Watkins MD PCP: Dr. Joshua Whitlock MD Status: REG ER Study:Gallbladder Date of Exam: 06/18/25 Exam# [id number] Ordering Dr: Ross Silva MD PROCEDURE: GALLBLADDER 06/18/2025 REASON FOR EXAM: PAIN TECHNIQUE: Procedure Code: USGB Modality: US Procedure: GALLBLADDER COMPARISON: CT abdomen and pelvis from the same day 06/18/2025. FINDINGS: Liver: Echogenic suggestive of fatty infiltration. Gallbladder: The gallbladder is distended. No gallbladder wall thickening. No gallbladder wall thickening. No pericholecystic fluid. The technologist reported a negative Goddard sign. Common bile duct: Mild intra and extrahepatic biliary dilation. Pancreas: A 1.9 x 1.7 x 1.5 cm mass at the pancreatic head. US/Gallbladder IMPRESSION: The gallbladder is distended with sludge. No evidence of acute cholecystitis. A 1.9 x 1.5 x 1.7 cm hypoechoic mass at the pancreatic head. Mild biliary dilation. Please refer to separate CT abdomen and pelvis were further details. Reading Location: [facility] CC: Dr. Bertha Silva MD; Dr. Joshua Whitlock MD ~ Cargo Service Supervisor: Signed [facility] 06-18-2025 Radiology Diagnostic study note [facility] [address] [place] [address] Chest PA and Lateral MR#: [id number] Acct: [id number] Name: CORIE LUGO Rep #: [id number] : 1970 F 54 From: Ochoa Harris MD PCP: Dr. Joshua Whitlock MD Status: REG ER Study:Chest PA and Lateral Date of Exam: 06/18/25 Exam# [id number] Ordering Dr: Ross Silva MD PROCEDURE: CHEST PA AND LATERAL 06/18/2025 REASON FOR EXAM: COUGH, RECENT HOSPITALIZATION TECHNIQUE: Procedure Code: RADCXR Modality: DX Procedure: CHEST PA AND LATERAL COMPARISON: 06/16/2021. FINDINGS: The heart is normal in size. The lungs are clear. No acute osseous abnormalities. RAD/Chest PA and Lateral IMPRESSION: NO ACUTE FINDINGS. Reading Location: [facility] CC: Dr. Bertha Silva MD; Dr. Joshua Whitlock MD ~ Cargo Service Supervisor: Signed [facility] 06-18-2025 Radiology Diagnostic study note [facility] [address] [place] [address] Abdomen/Pelvis W IV Cont ONLY MR#: [id number] Acct: [id number] Name: CORIE LUGO Rep #: [id number] : 1970 F 54 From: Kunal Watkins MD PCP: Dr. Jsohua Whitlock MD Status: REG ER Study:Abdomen/Pelvis W IV Cont ONLY Date of E xam: 06/18/25 Exam# [id number] Ordering Dr: Ross Silva MD PROCEDURE: ABDOMEN/PELVIS W IV CONT ONLY 06/18/2025 REASON FOR EXAM: WORSENING ABD PAIN, RECENT CHOLEDOCHOLITHIASIS TECHNIQUE: Procedure Code: [id number] Modality: CT Procedure: ABDOMEN/PELVIS W IV CONT ONLY Coronal and Sagittal reconstruction series were provided. CONTRAST: Isovue 370 VOLUME: 98. ML One or more dose reduction techniques were used (e.g., Automated exposure control, adjustment of the mA and/or kV according to patient size, use of iterative reconstruction technique. RADIATION DOSE SUMMARY: CTDlvol: 19.51 mGy DLP: 1007. 62 mGycm COMPARISON: CT abdomen and pelvis 06/13/2025. FINDINGS: Lung bases: Clear. Liver: A 2.2 cm simple cyst in the left hepatic lobe. Gallbladder: Status post cholecystectomy. Common bile duct stent in place. Decrease in biliary dilation compared to CT scan 06/13/2025. Spleen: No splenomegaly. Pancreas: Stable suspicious 1.7 cm hypodense mass at the uncinate process of thepancreas. Similar dilation of the pancreatic duct. Adrenals: Unremarkable. Kidneys: No hydronephrosis. No nephrolithiasis. Bladder: Unremarkable. Reproductive Organs: Unremarkable. Bowel: No bowel obstruction. No bowel wall thickening. Appendix: Unremarkable. Lymph nodes: Small mesenteric and retroperitoneal lymph nodes. A gastrohepatic lymph node measures 8.5 mm. Vasculature: No aneurysm or atherosclerotic calcifications. Peritoneum / Retroperitoneum: No free air or free fluid. Bones: No acute bony abnormalities. CT/Abdomen/Pelvis W IV Cont ONLY IMPRESSION: Stable suspicious 1.7 cm hypodense mass at the uncinate process of the pancreas.Similar dilation of the pancreatic duct. Decrease in biliary dilation status post the common bile duct stent placement. Small mesenteric and retroperitoneal lymph nodes. A gastrohepatic lymph node measures 8.5 mm. Reading Location: [facility] CC: Dr. Bertha Silva MD; Dr. Joshua Whitlock MD ~ Cargo Service Supervisor: Signed [facility] 06-15-2025 Note [facility] Medical Records Department [address] [place] [address] Discharge Summary 06/15/25 1214 MR#: [id number] Acct: [id number] Name: CORIE LUGO Rep #: [id number] : 1970 54 From: Tika Casey DO PCP: Dr. Joshua Whitlock MD Status:DIS IN [id number] Prov[facility] Date of Admission: 06/13/25 Date of Discharge: 06/15/25 Primary Care Physician: Dr. Joshua Whitlock MD Consultations 06/13/25 18:28 Consult: Gastroenterology Routine Consulting Provider: Killian Wallace Reason for Consult: painless jaundice w/ CBD dilation and pancreatic head mass EMERGENT Consult: No MD Notified: Yes Date Notified: 06/13/25 Time Notified: 18:54 Method of Notification: Text Reason For Visit: ABDOMINAL PAIN W/ JAUNDICE PANCREATIC HEAD MASS Diagnosis Discharge Diagnosis (1) Mass of head of pancreas: Status: Acute Code(s): K86.89 - Other specified diseases of pancreas (2) Biliary obstruction: Status: Acute Code(s): K83.1 - Obstruction of bile duct (3) Abdominal pain: Status: Acute Code(s): R10.9 - Unspecified abdominal pain (4) Jaundice: Status: Acute Code(s): R17 - Unspecified jaundice (5) Transaminitis: Status: Acute Code(s): R74.01 - Elevation of levels of liver transaminase levels (6) Hyperbilirubinemia: Status: Acute Code(s): E80.6 - Other disorders of bilirubin metabolism Medications at Discharge Home Medications cholecalciferol (vitamin D3) 25 mcg (1,000 unit) capsule (Vitamin D3) 25 mcg PO DAILY 08/29/24 diclofenac sodium 75 mg tablet,delayed release 75 mg PO BID 08/29/24 loratadine 10 mg capsule 10 mg PO DAILY 08/29/24 melatonin 3 mg capsule 3 mg PO QHS 08/29/24 sumatriptan succinate 50 mg tablet 50 mg PO PRN PRN migraine headache 08/29/24 ciprofloxacin HCl 500 mg tablet (Cipro) 500 mg PO BID #20 tabs 06/15/25 metronidazole 500 mg tablet 500 mg PO Q8H #30 tabs 06/15/25 omeprazole 20 mg capsule,delayed release 40 mg PO DAILY 06/15/25 sucralfate 1 gram tablet 1 g PO 4X/DAY #180 tabs 06/15/25 tramadol 50 mg tablet 50 mg PO Q8H PRN pain #30 tabs 06/15/25 Hospital Course Operations ERCP and - Summary of Care Provided Minutes Spent on Discharge: 37 Hospital Course: Mrs. Lugo is a 54-year-old white female who presented to emergency department at [facility] on 06/13/2025 with abdominal pain and jaundice. Patient started having some upper abdominal pain and epigastric pain about 3 months prior to presentation she had made an outpatient appointment to see gastroenterology was scheduled for this 06/15/2025. She stated over that period of time she has had discomfort eating and poor p.o. intake with weight loss of about 30 pounds. Over the past several days prior to presentation she noticed her urine became dark and family recommended she be seen in the emergency department. Vital signs on presentation showed a temperature of 97.6, heart rate 79, respiratory 16, blood pressure was 123/77 and pulse ox was 98% on room air. Her CBC was unremarkable. Chemistry panel was overtly unremarkable but liver functions were markedly abnormal with a total bilirubin of 5.65, AST of 507 and an ALT of 1069. UA was not consistent with infection but did have significant bilirubin and urobilinogen. CT of the abdomen pelvis was performed and showed dilated intra [place] biliary ducts and the common bile duct down to the head of the pancreas or a 14 mm mass in the head of the pancreas was noted. She also was found to have small gallstones. Given the findings on CT gallbladder ultrasound was performed and showed dilated intrahepatic biliary ducts and normal gallbladder. Pancreatic cancer was suspected and she was admitted to the hospital, placed on IV fluids, made n.p.o. and pain medication was provided. Gastroenterology was consulted and she was taken for ERCP on 06/14/2025. ERCP showed severely narrowed lumen in the biliary tract visualized via spyglass with a single localized biliary stricture in the lower third of the main bile duct that appeared malignant, the entire main bile duct was dilated secondary to stricture, choledocholithiasis was found. Biliary sphincterotomy with balloon extraction was performed. Cells for cytology were obtained in the lower third of the main duct and 1 temporary stent was placed in the common bile duct. The biliary tree was swept and pus was found. Given these findings she was started on antibiotics with Cipro and Flagyl which she will complete treatment of 10 days. CA 19-9, AFP, and CEA were ordered. These as well as pathology were pending at the time of discharge. She was started on a diet and tolerated with improved tolerance however still had some mild pain. She was sent home with 7-day supply of tramadol and Cipro and Flagyl. Follow-up was arranged with Dr. Wallace's office on June 25, 2025 at 12:30 in the afternoon (more content not included)... [facility] 06-14-2025 Consult note Note Date/Time June 14, 2025 9:03pm [facility] Medical Records Department [address] [place] [address] Anesthesia Postop Eval II 06/14/252101 MR#: [id number] Acct: [id number] Name: CORIE LUGO DONOVAN Rep #:[id number] : 1970 54 From: Syd Dwyer MD PCP: Dr. Joshua Whitlock MD Status:ADM IN Y Race: C Location: MT3 MS309 -1 Anesthesia Postop Eval I Sum Postop Eval Completion status Anesthesia document: Postop Eval 1 completed: Yes Anesthesia Postop Eval I Summary Anesthesia Postop Eval I Summary: Anesthesia Postop Eval I: Assessment Summary Airway patent Yes 06/14/25 19:12 Spontaneous unlabored Yes 06/14/25 19:12 respirations Mental status Asleep - Arousable 06/14/25 19:12 nausea No 06/14/25 19:12 Vomiting No 06/14/25 19:12 Anesthesia Postop Eval I: Fluid Summary Crystalloid volume administer 800 06/14/25 19:12 (ml) Colloids volume administered ( ml) Blood Product volume administered (ml) Total IV fluid infused 800 06/14/25 19:12 Anesthesia Postop Eval I: Summary Notes Anesthesia Complication No 06/14/25 19:12 Anesthesia Complication Comment: Post-operative progress note Anesthesia: Postop Eval II Evaluation Mental status: Awake and Calm Pain Level: 4 nausea: No Vomiting: No Complications Anesthesia Complication: No 06/14/252102 <Electronically signed by Syd eastman MD> Date _ Syd Dwyer MD Cosigner Signature: Date CC: ~ Signed [facility] Work Phone: 1(433) 609-483709-11-2025 Progress note Author Tika Casey [facility] Note Date/Time June 14, 2025 7:24pm [facility] Medical Records Department [address] [place] [address] Progress Note - Hospitalist 06/14/25 0847 MR#: [id number] Acct: [id number] Name: CORIE LUGO DONOVAN Rep #:[id number] : 1970 54 From: Tika Casey DO PCP: Dr. Joshua Whitlock MD Status:ADM IN Location: [place] [address]-1 Reason for Visit Chief Complaint: Abdominal pain with jaundice Subjective Subjective Patient complaining of ongoing pain. Not quite as controlled as she would like it to be. We discussed some uptitration of the IV medications as it seems to beeffective for short period of time. ERCP is pending and then we discussed that ongoing recommendations can be made following that. Objective Data Objective Data Vital Signs: Vital Signs Temp Pulse Resp BP Pulse Ox O2 Del Method 97.1 F L 62 18 108/64 97 Room Air 06/14/25 07:33 06/14/25 07:33 06/14/25 07:33 06/14/25 07:33 06/14/25 07:33 06/14/25 07:33 Oxygen Delivery Method Room Air Weight: 84.867 kg Body Mass Index (BMI) 34.2 Lab / Micro Data 06/14/25 04:10 06/14/25 04:10 Labs: Laboratory Results - last 24 hr 06/13/25 13:42: WBC 9.4, RBC 4.82, Hgb 13.6, Hct 40.6, MCV 84.2, MCH 28.2, MCHC 33.5, RDW Std Deviation 49.0 H, RDW Coeff of Morelia 16.0 H, Plt Count 352, MPV 12.1H, Immature Gran % (Auto) 0.300, Neut % (Auto) 60.7, Lymph % (Auto) 27.7, Major %(Auto) 8.7, Eos % (Auto) 1.8, Baso % (Auto) 0.8, Absolute Neuts (auto) 5.7, Absolute Lymphs (auto) 2.61, Nucleated RBC % 0, Sodium 139, Potassium 4.2, Chloride 104, Carbon Dioxide 20.7 L, Anion Gap 14, BUN 20 H, Creatinine 1.01, Estim Creat Clear Calc 62.84, Est GFR (MDRD) Non-Af 65, BUN/Creatinine Ratio 19.8, Glucose 99, Calcium 10.0, Total Bilirubin 5.65 H, AST 507 H, ALT 1069 H, Alkaline Phosphatase 886 H, Total Protein 7.3, Albumin 4.0, Globulin 3.3, Albumin/Globulin Ratio 1.2, Lipase 12 L 06/13/25 13:54: Urine Color Lynn, Urine Clarity Clear, Urine pH 5.0, Ur Specific [place] 1.020, Urine Protein 100 H, Urine Glucose (UA) Normal, Urine Ketones 15 H, Urine Occult Blood 25 H, Urine Nitrite Negative, Urine Bilirubin 6H, Urine Urobilinogen 4 H, Ur Leukocyte Esterase 500 H, Urine RBC 0-5 SEEN, Urine WBC 10- 25 SEEN, Ur Squamous Epith Cells 5-10 SEEN, Amorphous Sediment 3+ URATE, Urine Bacteria 0 SEEN, Urine Mucus 0 SEEN 06/14/25 04:10: WBC 7.9, RBC 4.49, Hgb 12.8, Hct 37.2, MCV 82.9, MCH 28.5, MCHC 34.4, RDW Std Deviation 46.5 H, RDW Coeff of Morelia 15.8 H, Plt Count 285, MPV 11.6, Sodium 140, Potassium 4.0, Chloride 104, Carbon Dioxide 22.9, Anion Gap 12, BUN 17, Creatinine 0.91, Estim Creat Clear Calc 69.75, Est GFR (MDRD) Non-Af74, BUN/Creatinine Ratio 19.1, Glucose 114 H, Calcium 9.5, Total Bilirubin 5.50 H, AST 481 H, ALT 950 H, Alkaline Phosphatase 820 H, Total Protein 6.4, Albumin 3.7, Globulin 2.7, Albumin/Globulin Ratio 1.4 Radiography Diagnostic Testing: Radiology Impression Gallbladder Ultrasound 06/13/25 15:19 IMPRESSION: Dilated intrahepatic biliary ducts. Normal gallbladder. Reading [facility] Abdomen/Pelvis CT 06/13/25 15:40 IMPRESSION: Dilated intrahepatic biliary ducts in the common bile duct down to the head of the pancreas were I suspect a 14 mm mass in the head of the pancreas. Findings suggestive of small gallstones. Reading Location: [facility] Physical Exam Const alert, oriented x3, no apparent distress and well nourished; Negative for average body habitus Constitutional Narrative: Middle-age white female, sitting up in bed, at bedside, currently appears comfortable, nontoxic appearing HEENT head/scalp atraumatic and moist oral mucous membranes HEENT Narrative: Mallampati 2-3, no thrush Head and Scalp: normocephalic Eyes conjunctivae normal Eyes Narrative: Scleral icterus is present Neck supple Neck Narrative: Trachea midline Resp normal respiratory effort, no retractions, no use of accessory muscles and clearto auscultation bilaterally Resp Narrative: Diminished but clear Auscultation: Negative for rales, rhonchi or wheezes Cardio regular rate, regular rhythm, S1 normal heart sound, S2 normal heart sound, no murmurs, no rub, no gallops and no clicks GI normal to inspection, nondistended, normoactive bowel sounds and soft to palpation; Negative for non-tender GI Narrative: Tenderness in the epigastrium extending to the left upper quadrant Extremity no clubbing, cyanosis or edema Extremity Narrative: Pedal pulses are 2+, radial pulses are 2+ Skin Skin Narrative: Jaundice Neuro moves all extremities and no focal motor deficits Speech: speech normal Psych Psych Narrative: Affect is slightly flat but patient makes good eye contact and interacts appropriately Assessment & Plan Assessment/Plan (1) Mass of head of pancreas: (2) Biliary obstruction: (3) Abdominal pain: (4) Jaundice: (5) Transaminitis: (6) Hyperbilirubinemia: PLAN: Plan Abdominal pain with pancreatic head mass, biliary ductal dilation and elevated transaminases - Concern for pancreatic cancer - Check Ca 19-9 - ERCP today - Continue IV pain meds with uptitration - Repeat CMP in am - NPO - Start IVF - GI Consult pending GERD - PPI - carafate Seasonal Allergies -cont Loratidine Obesity - BMI 34.2 Tobacco Dependence - current nicotine abuse - continue nicotine patch - cessation advised DVT prophylaxis - Lovenox Code Status - Full 06/14/251923 <Electronically signed by Tika Casey DO> Cosigner Signature (if applicable): CC: ~ Signed [facility] Work Phone: 1(716) 749-545009-11-2025 Radiology Diagnostic study note [facility] Imaging Services [address] [place], [place] [id number] ERCP Biliary/Pancreas MR#: [id number] Acct: [id number] Name: CORIE LUGO DONOVAN Rep #: [id number] : 1970 F 54 From: Jose Groves MD PCP: Dr. Joshua Whitlock MD Status: ADM IN Study:ERCP Biliary/Pancreas Date of Exam: 06/14/25 Exam# [id number] Ordering Dr: Herrera Wallace DO EXAM: ERCP INTRAOPERATIVE FLUOROSCOPY CLINICAL HISTORY: Pancreatic mass, jaundice COMPARISON: Abdominal CT 06/13/2025. TECHNIQUE: 12 intraoperative fluoroscopic images are submitted for review. FINDINGS: ERCP demonstrates moderate intra and extrahepatic biliary ductal dilatation, as seen on prior CT. No filling defects to suggest choledocholithiasis appreciated. Total fluoroscopy time 118.8 seconds. Total radiation dose 26.04 mGy. RAD/ERCP Biliary/Pancreas IMPRESSION: ERCP as above, demonstrating intra and extrahepatic biliary ductal dilatation, as noted on prior CTwith suspected pancreatic head mass lesion. Reading Location: [facility] CC: Dr. Joshua Whitlock MD; Killian Wallace, DO ~ Cargo Service Supervisor: Signed [facility]09-11-2025 Consult note Author Syd Dwyer [facility] Note Date/Time June 14, 2025 7:12pm [facility] Medical Records Department [address] [place] [address] Anesthesia Postop Eval I 06/14/251909 MR#: [id number] Acct: [id number] Name: CORIE LUGO DONOVAN Rep #:[id number] : 1970 54 From: Syd Dwyer MD PCP: Dr. Joshua Whitlock MD Status:ADM IN Y Race: C Location: [place] [address] Anesthesia: Postop Eval I Current Vital Signs Temperature: 97.8 F Pulse Rate: 78 Blood Pressure: 118/66 Respiratory Rate: 16 Pulse Ox: 99 Oxygen Delivery Method: Room Air Assessment Airway patent: Yes Spontaneous unlabored respirations: Yes Mental status: Asleep (Arousable) nausea: No Vomiting: No Anesthesia Complication: No Fluid Hydration Crystalloid volume administer (ml): 800 Total IV fluid infused: 800 Progress Note Anesthesia document: Postop Eval 1 completed: Yes 06/14/251911 <Electronically signed by Syd eastman MD> Date _ Syd Dwyer MD Cosigner Signature: Date CC: ~ Signed [facility] Work Phone: 1(292) 169-654009-11-2025 Consult note [facility] Medical Records Department [address] [place] [address] Anesthesia Postop Eval II 06/14/252101 MR#: [id number] Acct: [id number] Name: CORIE LUGO Rep #:[id number] : 1970 54 From: Syd Dwyer MD PCP: Dr. Joshua Whitlock MD Status:ADM IN Y Race: C [place] [facility] [place] -[place] Anesthesia Postop Eval I Sum Postop Eval Completion status Anesthesia document: Postop Eval 1 completed: Yes Anesthesia Postop Eval I Summary Anesthesia Postop Eval I Summary: Anesthesia Postop Eval I: Assessment Summary Airway patent Yes 06/14/25 19:12 Spontaneous unlabored Yes 06/14/25 19:12 respirations Mental status Asleep - Arousable 06/14/25 19:12 nausea No 06/14/25 19:12 Vomiting No 06/14/25 19:12 Anesthesia Postop Eval I: Fluid Summary Crystalloid volume administer 800 06/14/25 19:12 (ml) Colloids volume administered ( ml) Blood Product volume administered (ml) Total IV fluid infused 800 06/14/25 19:12 Anesthesia Postop Eval I: Summary Notes Anesthesia Complication No 06/14/25 19:12 Anesthesia Complication Comment: Post-operative progress note Anesthesia: Postop Eval II Evaluation Mental status: Awake and Calm Pain Level: 4 nausea: No Vomiting: No Complications Anesthesia Complication: No 06/14/252102 raiza GALLEGOS> Date _ Syd Dwyer MD Cosigner Signature: Date CC: ~ Signed [facility]09-11-2025 Progress note [facility] Medical Records Department [address] [place] [address] Progress Note - Hospitalist 06/14/25 0847 MR#: [id number] Acct: [id number] Name: CORIE LUGO Rep #:[id number] : 1970 54 From: Tika Casey DO PCP: Dr. Joshua Whitlock MD Status:ADM IN Location: MT3 VE498-9 Reason for Visit Chief Complaint: Abdominal pain with jaundice Subjective Subjective Patient complaining of ongoing pain. Not quite as controlled as she would like it to be. We discussed some uptitration of the IV medications as it seems to beeffective for short period of time. ERCP is pending and then we discussed that ongoing recommendations can be made following that. Objective Data Objective Data Vital Signs: Vital Signs Temp Pulse Resp BP Pulse Ox O2 Del Method 97.1 F L 62 18 108/64 97 Room Air 06/14/25 07:33 06/14/25 07:33 06/14/25 07:33 06/14/25 07:33 06/14/25 07:33 06/14/25 07:33 Oxygen Delivery Method Room Air Weight: 84.867 kg Body Mass Index (BMI) 34.2 Lab / Micro Data 06/14/25 04:10 06/14/25 04:10 Labs: Laboratory Results - last 24 hr 06/13/25 13:42: WBC 9.4, RBC 4.82, Hgb 13.6, Hct 40.6, MCV 84.2, MCH 28.2, MCHC 33.5, RDW Std Deviation 49.0 H, RDW Coeff of [place] 16.0 H, Plt Count 352, MPV 12.1H, Immature Gran % (Auto) 0.300, Neut %(Auto) 60.7, Lymph % (Auto) 27.7, Major %(Auto) 8.7, Eos % (Auto) 1.8, Baso % (Auto) 0.8, Absolute Neuts (auto) 5.7, Absolute Lymphs (auto) 2.61, Nucleated RBC % 0, Sodium 139, Potassium 4.2, [id number], Carbon Dioxide 20.7 L, Anion Gap 14, BUN 20 H, Creatinine 1.01, Estim Creat Clear Calc 62.84, Est GFR (MDRD) Non-Af 65, BUN/Creatinine Ratio 19.8, Glucose 99, Calcium 10.0, Total Bilirubin 5.65 H, AST 507 H, ALT 1069 H, Alkaline Phosphatase 886 H, Total Protein 7.3, Albumin 4.0, Globulin 3.3, A lbumin/Globulin Ratio 1.2, Lipase 12 L 06/13/25 13:54: Urine Color Lynn, Urine Clarity Clear, Urine pH 5.0, Ur Specific [place] 1.020, Urine Protein 100 H, Urine Glucose (UA) Normal, Urine Ketones 15 H, Urine Occult Blood 25 H, Urine Nitrite Negative, Urine Bilirubin 6H, Urine Urobilinogen 4 H, Ur Leukocyte Esterase 500 H, Urine RBC 0-5 SEEN, Urine WBC 10-25 SEEN, Ur Squamous Epith Cells 5-10 SEEN, Amorphous Sediment 3+ URATE, Urine Bacteria 0 SEEN, Urine Mucus 0 SEEN 06/14/25 04:10: WBC 7.9, RBC 4.49, Hgb 12.8, Hct 37.2, MCV 82.9, MCH 28.5, MCHC 34.4, RDW Std Deviation 46.5 H, RDW Coeff of More[place] 15.8 H, Plt Count 285, MPV 11.6, Sodium 140, Potassium 4.0, Chloride 104, Carbon Dioxide 22.9, Anion Gap 12, BUN 17, Creatinine 0.91, Estim Creat Clear Calc 69.75, Est GFR (MDRD) Non- Af74, BUN/Creatinine Ratio 19.1, Glucose 114 H, Calcium 9.5, Total Bilirubin 5.50 H, AST 481 H, ALT 950 H, Alkaline Phosphatase 820 H, Total Protein 6.4, Albumin 3.7, Globulin 2.7, Albumin/Globulin Ratio 1.4 Radiography Diagnostic Testing: Radiology Impression Gallbladder Ultrasound 06/13/25 15:19 IMPRESSION: Dilated intrahepatic biliary ducts. Normal gallbladder. Reading [facility] Abdomen/Pelvis CT 06/13/25 15:40 IMPRESSION: Dilated intrahepatic biliary ducts in the common bile duct down to the head of the pancreas were I suspect a 14 mm mass in the head of the pancreas. Findings suggestive of small gallstones. Reading Location: [id number] Physical Exam Const alert, oriented x3, no apparent distress and well nourished; Negative for average body habitus Constitutional Narrative: Middle-age white female, sitting up in bed, at bedside, currently appears comfortable, nontoxic appearing HEENT head/scalp atraumatic and moist oral mucous membranes HEENT Narrative: Mallampati 2-3, no thrush Head and Scalp: normocephalic Eyes conjunctivae normal Eyes Narrative: Scleral icterus is present Neck supple Neck Narrative: Trachea midline Resp normal respiratory effort, no retractions, no use of accessory muscles and clearto auscultation bilaterally Resp Narrative: Diminished but clear Auscultation: Negative for rales, rhonchi or wheezes Cardio regular rate, regular rhythm, S1 normal heart sound, S2 normal heart sound, no murmurs, no rub, no gallops and no clicks GI normal to inspection, nondistended, normoactive bowel sounds and soft to palpation; Negative for non-tender GI Narrative: Tenderness in the epigastrium extending to the left upper quadrant Extremity no clubbing, cyanosis or edema Extremity Narrative: Pedal pulses are 2+, radial pulses are 2+ Skin Skin Narrative: Jaundice Neuro moves all extremities and no focal motor deficits Speech: speech normal Psych Psych Narrative: Affect is slightly flat but patient makes good eye contact and interacts appropriately Assessment & Plan Assessment/Plan (1) Mass of head of pancreas: (2) Biliary obstruction: (3) Abdominal pain: (4) Jaundice: (5) Transaminitis: (6) Hyperbilirubinemia: PLAN: Plan Abdominal pain with pancreatic head mass, biliary ductal dilation and elevated transaminases - Concern for pancreatic cancer - Check Ca 19-9 - ERCP today - Continue IV pain meds with uptitration - Repeat CMP in am - NPO - Start IVF - GI Consult pending GERD - PPI - carafate Seasonal Allergies -cont Loratidine Obesity - BMI 34.2 Tobacco Dependence - current nicotine abuse - continue nicotine patch - cessation advised DVT prophylaxis - Lovenox Code Status - Full 06/14/251923 Cosigner Signature (if applicable): CC: ~ Signed [place] [address]-11-2025 Consult note [facility] Medical Records Department [address] [place] [address] Anesthesia Postop Eval I 06/14/251909 MR#: [id number] Acct: [id number] Name: CORIE LUGO DONOVAN Rep #:[id number] : 1970 54 From: Syd Dwyer MD PCP: Dr. Joshua Whitlock MD Status:ADM IN Y Race: C Location: [place] [address] Anesthesia: Postop Eval I Current Vital Signs Temperature: 97.8 F Pulse Rate: 78 Blood Pressure: 118/66 Respiratory Rate: 16 Pulse Ox: 99 Oxygen Delivery Method: Room Air Assessment Airway patent: Yes Spontaneous unlabored respirations: Yes Mental status: Asleep (Arousable) nausea: No Vomiting: No Anesthesia Complication: No Fluid Hydration Crystalloid volume administer (ml): 800 Total IV fluid infused: 800 Progress Note Anesthesia document: Postop Eval 1 completed: Yes 06/14/251911 raiza GALLEGOS> Date _ Syd Dwyer MD Cosigner Signature: Date CC: ~ Signed [facility]09-11-2025 Consult note Author Killian Wallace [facility] Note Date/Time June 14, 2025 4:59pm [facility] Medical Records Department [address] [place] [address] Consultation - GI 06/14/25 1650 MR#: [id number] Acct: [id number] Name: CORIE LUGO DONOVAN Rep #:[id number] 2 : 1970 54 From: Killian Wallace DO PCP: Dr. Joshua Whitlock MD Status:ADM IN Location: [place] [address] HPI Consult Data Date of Consult: 06/14/25 HPI Narrative Reason for Consultation: jaundice HPI Narrative: CORIE LUGO, is a 54-year-old female presents with painless, progressive yellow discoloration of her skin and eyes over the past two to three weeks. She reports associated generalized pruritus (itching) and dark urine. She also noteslight-colored, derik-like stools. The patient reports a 10-pound unintentional weight loss over the past month. She denies any abdominal pain, nausea, vomiting, or fever. She is a current smoker. No alcohol use reported. Lives withher . CT Scan (Abdomen/Pelvis): * 14 mm mass in the head of the pancreas. * Presence of gallstones. * Dilation of the common bile duct, likely due to compression by the pancreatic head mass. * No evidence of metastasis on this scan. [facility] Medical History Post-menopausal Wears glasses Anxiety Arthritis Easy bruising Migraine headache Shortness of breath on exertion Smoker History of edema History of pain when walking Home Medications ?Medication ?Instructions ?Recorded ?Last Taken ?Type cholecalciferol (vitamin D3) 25 25 mcg PO DAILY 09/24/24 History mcg (1,000 unit) capsule (Vitamin D3) diclofenac sodium 75 mg 75 mg PO BID 08/29/24 History tablet,delayed release loratadine 10 mg capsule 10 mg PO DAILY 08/29/2409/03 History melatonin 3 mg capsule 3 mg PO QHS 08/29/24 Unknown History sumatriptan succinate 50 mg tablet 50 mg PO PRN PRN mi graine headache 08/29/24 Unknown History omeprazole 20 mg capsule,delayed 20 mg PO DAILY Unknown History release sucralfate 1 gram tablet 1 g PO 4X/DAY 06/13/25 Unkno wn History Allergy/AdvReac Type Severity Reaction Status Date / Time No Known Allergies Allergy Verified 09/25/24 06:02 Surgical History Hx of total knee arthroplasty Hx of arthroscopic knee surgery History of endometrial ablation History of ankle surgery History of carpal tunnel surgery of right wrist Hx of foot surgery Hx of tubal ligation Social History Smoking Status: Current every day smoker tobacco type: cigarettes ROS Constitutional Constitutional: Denies fatigue, fever(s), poor appetite, weight gain or weight loss Gastrointestinal Gastrointestinal: Denies belching, bloating, change in bowel habits, change in stool character, chewing difficulty, coffee ground emesis, constipation, cramping, diarrhea, dyspepsia, dysphagia, early satiety, excessive flatus, fecalincontinence, heartburn, hematemesis, hematochezia, hemorrhoids, loose stools, melena, nausea, odynophagia, rectal bleeding, tenesmus, vomiting or weight changes Physical Exam Const alert, oriented x3, no apparent distress and healthy appearing General Appearance: cooperative GI normal to inspection, nondistended, normoactive bowel sounds, soft to palpation,non-tender and non-distended Percussion: normal to percussion Rectal Exam: deferred Lab / Micro Data 06/14/25 04:10 06/14/25 04:10 Labs: Laboratory Results - last 24 hr 06/14/25 04:10: WBC 7.9, RBC 4.49, Hgb 12.8, Hct 37.2, MCV 82.9, MCH 28.5, MCHC 34.4, RDW Std Deviation 46.5 H, RDW Coeff of Morelia 15.8 H, Plt Count 285, MPV 11.6, Sodium 140, Potassium 4.0, Chloride 104, Carbon Dioxide 22.9, Anion Gap 12, BUN 17, Creatinine 0.91, Estim Creat Clear Calc 69.75, Est GFR (MDRD) Non-Af74, BUN/Creatinine Ratio 19.1, Glucose 114 H, Calcium 9.5, Total Bilirubin 5.50 H, AST 481 H, ALT 950 H, Alkaline Phosphatase 820 H, Total Protein 6.4, Albumin 3.7, Globulin 2.7, Albumin/Globulin Ratio 1.4 Imaging Radiology Impression Gallbladder Ultrasound 06/13/25 15:19 IMPRESSION: Dilated intrahepatic biliary ducts. Normal gallbladder. Reading Location: [facility] Assessment & Plan Assessment/Plan (1) Mass of head of pancreas: (2) Biliary obstruction: (3) Abdominal pain: PLAN: Plan Problem List: * Painless obstructive jaundice:?Likely caused by the pancreatic head mass compressing the common bile duct. * Pancreatic head mass (14mm):?Highly suspicious for pancreatic adenocarcinoma, especially given the painless jaundice, smoking history, and weight loss. * Cholelithiasis (gallstones):?Found on imaging, though not the primary cause of the current obstruction. * Nicotine dependence:?Continued smoking is a significant risk factor for pancreatic malignancy. * Unintentional weight loss:?A constitutional symptom often associated with malignancy. * Pruritus:?Secondary to bile salt deposition in the skin. Differential Diagnosis: * Pancreatic Adenocarcinoma:?Most likely diagnosis, consistent with painless jaundice, head of pancreas mass, weight loss, and smoking history. * Autoimmune Pancreatitis (AIP):?Can present with painless jaundice and a pancreatic mass, but typically responds to steroids. Less likely given her smoking history and significant weight loss. * Cholangiocarcinoma:?Malignancy of the bile duct, which can also cause obstructive jaundice. The CT finding of a discrete pancreatic head mass makes this less likely, though still possible. * Chronic Pancreatitis:?Can cause bile duct strictures and mimic a mass on imaging, but typically presents with significant pain. ?Plan Therapeutic: * Biliary Decompression:?Plan for ERCP with stent placement to relieve the obstructive jaundice. This will alleviate symptoms like pruritus and allow for further definitive treatment once the pathology is confirmed. * Surgical Consultation:?Refer to a hepatobiliary surgeon for evaluation of resectability. * Oncology Consultation:?Refer to oncology for discussion of treatment options, including chemotherapy, depending on the stage and resectability of the tumor. * Pain/Symptom Management:?Prescribe medication for pruritus as needed. Continue to monitor for abdominal pain. Diagnostic: * Endoscopic Ultrasound with Fine Needle Aspiration (:?Recommended for definitive tissue diagnosis of the pancreatic head mass. * Tumor Markers:?Order CA 19-9. While not specific, elevated levels support the suspicion of pancreatic cancer, though they can also be elevated in other conditions causing jaundice. * Labs:?Complete metabolic panel, CBC, amylase, lipase, and coagulation studies. Charges/Coding Visit Charges Inpatient E&M: 80883 Init Hosp L3 06/14/25 1659 <Electronically signed by Killian Wallace DO> Cosigner Signature (if applicable): CC: Dr. Joshua Whitlock MD~ Signed [facility] Work Phone: 1(518) 601-582909-11-2025 Procedure note [facility] Medical Records Department [address] [place] [address] ERCP Report MR#: [id number] Acct: [id number] Name: CORIE LUGO Rep #:[id number] : 1970 54 From: Killian Wallace DO PCP: Dr. Joshua Whitlock MD Status:ADM IN Patient Name: Corie Lugo Procedure Date: 06/14/2025 4:53 PM Date of : 1970 Age: 54 Procedure: ERCP Indications: Jaundice, Elevated liver enzymes, Malignant tumor of the head of pancreas Providers: Killian Wallace DO Medicines: General Anesthesia Patient Profile: This is a 54 year old female. Refer to note in patient chart for documentation of history and physical. Patient has symptoms of acute right upper quadrant abdominal pain, acute epigastric abdominal pain and acute jaundice. This patient has no history of previous ERCP. This patient has no history of surgical alteration of the upper digestive tract anatomy. Complications: No immediate complications. Procedure: Pre-Anesthesia Assessment: - Prior to the procedure, a History and Physical was performed, and patient medications and allergies were reviewed. The patient is competent. The risks and benefits of the procedure and the sedation options and risks were discussed with the patient. All questions were answered and informed consent was obtained. Patient identification and proposed procedure were verified by the physician in the pre-procedure area. Mental Status Examination: alert and oriented. Airway Examination: normal oropharyngeal airway and neck mobility. Respiratory Examination: clear to auscultation. CV Examination: normal. Prophylactic Antibiotics: The patient does not require prophylactic antibiotics. Prior Anticoagulants: The patient has taken no anticoagulant or antiplatelet agents except for NSAID medication. ASA Grade Assessment: II - A patient with mild systemic disease. After reviewing the risks and benefits, the patient was deemed in satisfactory condition to undergo the procedure. The anesthesia plan was to use monitored anesthesia care (MAC). Immediately prior to administration of medications, the patient was re-assessed for adequacy to receive sedatives. The heart rate, respiratory rate, oxygen saturations, blood pressure, adequacy of pulmonary ventilation, and response to care were monitored throughout the procedure. The physical status of the patient was re-assessed after the procedure. After obtaining informed consent, the scope was passed under direct vision. Throughout the procedure, the patient's blood pressure, pulse, and oxygen saturations were monitored continuously. The Duodenoscope was introduced through the mouth, and advanced to the duodenum and used to inject contrast into the bile duct. The ERCP was accomplished without difficulty. The patient tolerated the procedure well. Scope In: 5:41:28 PM Scope Out: 6:48:17 PM Total Procedure Duration Time 1 hour 6 minutes 49 seconds Findings: The timing adjuster film was normal. The esophagus was successfully intubated under direct vision. The scope was advanced to a normal major papilla in the descending duodenum without detailed examination of the pharynx, larynx and associated structures, and upper GI tract. The upper GI tract was grossly normal. A long 0.025 inch Jagwire was passed into the biliary tree. The short-nosed traction sphincterotome was passed over the guidewire and the bile duct was then deeply cannulated. Contrast was injected. I personally interpreted the bile duct images. There was brisk flow of contrast through the ducts. Image quality was adequate. Contrast extended to the entire biliary tree. Opacification of the entire biliary tree except for the cystic duct and gallbladder and entire biliary tree was successful. The maximum diameter of the ducts was 10 mm. The lower third of the main bile duct contained a single localized stenosis 3 mm in length. The main bile duct was diffusely dilated, secondary to a stricture. The largest diameter was 12 mm. A 5 mm biliary sphincterotomy was made with a braided traction (standard) sphincterotome using ERBE electrocautery. There was no post-sphincterotomy bleeding. The biliary tree was swept with a 12 mm balloon starting at the upper third of the main bile duct, middle third of the main bile duct, lower third of the main duct, bifurcation, left intrahepatic duct(s), left main hepatic duct, right intrahepatic duct(s) and right main hepatic duct. Sludge was swept from the duct. All stones were removed. Pus was swept from the duct. Cells for cytology were obtained by brushing in the lower third of the main bile duct. The bile duct was explored endoscopically using the SpyGlass direct visualization system. The SpyScope was advanced to the lower third of the main duct. Visibility with the scope was good. The lumen of the in the biliary system was severely narrowed. Dilation of the lower third of the main bile duct with 10 Fr catheter dilator was successful. One 10 Fr by 9 cm temporary stent was placed 5 cm into the common bile duct. Bile flowed through the stent. The stent was in good position. Impression: - Severely narrowed lumen in the biliary tract visualized via SpyGlass. - A single localized biliary stricture was found in the lower third of the main bile duct. The stricture was malignant appearing. - The entire main bile duct was dilated, secondary to a stricture. - Choledocholithiasis was found. Complete removal was accomplished by biliary sphincterotomy and balloon extraction. - A biliary sphincterotomy was performed. - The biliary tree was swept and pus was found. - Cells for cytology obtained in the lower third of the main duct. - The lower third of the main bile duct was successfully dilated. - One temporary stent was placed into the common bile duct. Recommendation: CA 19-9, AFP, CEA Procedure Code(s): --- Professional --- 51244, Endoscopic retrograde cholangiopancreatography (ERCP); with placement of endoscopic stent into biliary or pancreatic duct, including pre- and post-dilation and guide wire passage, when performed, including sphincterotomy, when performed, each stent 50867, Endoscopic retrograde cholangiopancreatography (ERCP); with removal of calculi/debris from biliary/pancreatic duct(s) 19016, Endoscopic cannulation of papilla with direct visualization of pancreatic/common bile duct(s) (List separately in addition to code(s) for primary procedure) 74966, 26, Endoscopic catheterization of the biliary ductal system, radiological supervision and interpretation CPT copyright 2021 [employer] [place] [employer]. All rights reserved. The codes documented in this report are preliminary and upon physician coder review may be revised to meet current compliance requirements. Killian Wallace DO 06/14/2025 6:56:22 PM This report has been signed electronically. Number of Addenda: 0 Note Initiated On: 06/14/2025 4:53 PM 09/11/25 1856 Date _ Killian Wallace DO Cosigner Signature: Date (if indicated) CC: Dr. Joshua Whitlock MD; Killian Wallace DO ~ Date Dictated: 06/14/25 1653 Date Transcribed: Cargo Service Supervisor: RF Signed [facility]09-11-2025 Procedure note [facility] Medical Records Department [address] [place] [address] Provation Physician Letter MR#: [id number] Acct: [id number] Name: CORIE LUGO Rep #:[id number] 2 : 1970 54 From: Killian Wallace DO PCP: Dr. Joshua Whitlcok MD Status:ADM IN 06/14/2025 Joshua Whitlock Re : ERCP procedure for Corie Lugo Ed Whitlock This procedure was performed on , June 14, 2025. My impressions and recommendations are as follows: Impressions : - Severely narrowed lumen in the biliary tract visualized via SpyGlass. - A single localized biliary stricture was found in the lower third of the main bile duct. The stricture was malignant appearing. - The entire main bile duct was dilated, secondary to a stricture. - Choledocholithiasis was found. Complete removal was accomplished by biliary sphincterotomy and balloon extraction. - A biliary sphincterotomy was performed. - The biliary tree was swept and pus was found. - Cells for cytology obtained in the lower third of the main duct. - The lower third of the main bile duct was successfully dilated. - One temporary stent was placed into the common bile duct. Recommendations : CA 19-9, AFP, CEA My findings are described in the full procedure note, which is enclosed. If I can be of further assistance, please feel free to contact me at . Sincerely, Killian Wallace DO 06/14/2025 6:56:22 PM This report has been signed electronically. 09/11/25 1856 Date _ Killiannéstor Wallace DO [place] Signature: Date (if indicated) CC: Dr. Maynor Blanton DO; Dr. Tika Casey DO; Dr. Joshua Whitlock MD; Killian Wallace DO ~ Date Dictated: 06/14/25 1653 Date Transcribed: Cargo Service Supervisor: NASIM Nichols [facility]09-11-2025 Consult note Author Syd Dwyer [facility] Note Date/Time June 14, 2025 3:56pm [facility] Medical Records Department [address] [place] [id number] Pre-Anesthesia Evaluation 06/14/25 1547 MR#: [id number] Acct: [id number] Name: CORIE LUGO DONOVAN Rep #:[id number] : 1970 54 From: Syd Dwyer MD PCP: Dr. Joshua Whitlock MD Status:ADM IN Y Race: C Location: [place] [address] ASA Classification* ASA Classification ASA Classification: 2 Assessment & Plan Anesthesia* Anesthesia Assessment Anesthesia Assessment: Discussed sedation and/or anesthesia options, risks, benefits, and alternatives with patient/parents/legal guardian/POA. Questions invited. The patient/parents/legal guardian/POA seems to understand and agrees to proceedwith anesthesia plan. Reviewed the physical assessment, medical history, allergy history and patient home medications list prior to surgery/procedure/anesthetic and documented any changes. Performed airway and anesthesia risk assessments. Anesthesia Type Anesthesia Type: General History Source History Obtained from:: Patient and Chart Anesthesia Focused Assessment* Temperature: 97.3 F Pulse Rate: 60 Blood Pressure: 107/56 Respiratory Rate: 18 Pulse Ox: 95 Oxygen Delivery Method: Room Air Airway Assessment Mouth opens: >3 cm Mallampati Score: III Teeth Condition: Intact Neck Range of motion (ROM): Full ROM Labs Anesthesia Preop lab: CBC WBC 7.9 K/mm3 (4.4-11.0) 06/14/25 04:10 06/14/25 RBC 4.49 M/mm3 (4.2-5.4) 06/14/25 04:10 06/14/25 Hgb 12.8 g/dL (12.0-15.0) 06/14/25 04:10 06/14/25 Hct 37.2 % (37-47) 06/14/25 04:10 06/14/25 Plt Count 285 K/mm3 (150-450) 06/14/25 04:10 06/14/25 CHEMISTRY Potassium 4.0 mmol/L (3.3-5.1) 06/14/25 04:10 06/14/25 Sodium 140 mmol/L (133-145) 06/14/25 04:10 06/14/25 Magnesium 2.2 mg/dL (1.6-2.6) 09/06/24 08:09 09/06/24 BUN 17 mg/dL (4-19) 06/14/25 04:10 06/14/25 Creatinine 0.91 mg/dL (0.70-1.20) 06/14/25 04:10 06/14/25 Glucose 114 mg/dL (70-99) H 06/14/25 04:10 06/14/25 POC Glucose 87 mg/dL (74-106) 09/25/24 06:09 09/25/24 COAG PT 12.9 SECONDS (11.7-14.9) 09/06/24 08:09 Pre-Assessment Diagnosis/Proposed Procedure Planned Operative Procedure(s): Endoscopic retrograde cholangiopancreatography. Anesthesia History Anesthesia History - staffing consultant: Anesthesia History - staffing consultant Hx Hospitalization No 08/29/24 08:48 Any Problems With Anesthesia Yes: vomits alot 06/13/25 20:30 Cholinesterase deficiency No 06/13/25 20:30 You/Your Family Experience No 06/13/25 20:30 fever (hyperthermia) with Relationship Recent Exposure to Contagious No 06/13/25 20:30 Disease Does patient have nerve No 06/13/25 20:30 stimulator Patient instructed to have No 06/13/25 20:30 device shut off --Does patient have Pacemaker or ICD? When Was Last Pacemaker Check QUESTION #4 FULL TEXT: You/Your Family Experience fever (hyperthermia) with Anesthesia Last Oral Intake Last Oral intake: Last Oral Intake NPO since Meds taken in AM with sips of water? Meds patient instructed to take am of surgery Any additional information?: Yes NPO since: 00:00 Meds taken in AM with sips of water?: Yes Meds patient instructed to take am of surgery: Maxalt, Oxy IR. PONV PONV - staffing consultant: PONV - staffing consultant Female HX of Motion Sickness HX of N/V After Surgery Non-Smoker Duration of Surgery greater than 60 minutes Number of Risk Factors PONV Score Height & Weight Height & Weight: Anesthesia: Height & Weight Height 5 ft 2 in 06/14/25 12:25 Weight: 84.9 kg 06/14/25 12:25 Body Mass Index (BMI) 34.2 06/13/25 18:29 Respiratory Assessment Respiratory Assessment - staffing consultant: Respiratory Tract Infection Hx - staffing consultant Hx Respiratory Tract Infection No 06/13/25 20:30 STOP Sleep Apnea STOP Sleep Apnea - staffing consultant: STOP Sleep Apnea - staffing consultant Hx Hypertension No 06/13/25 18:29 Hx Sleep Apnea No 06/13/25 18:29 CPAP No 06/13/25 18:29 BIPAP Do you snore loudly (louder No 06/13/25 18:29 than talking or can be heard Do you often feel tired/ No 06/13/25 18:29 fatigued/ sleepy during daytime? Has anyone observed you stop No 06/13/25 18:29 breathing during sleep? STOP Results Negative 06/13/25 18:29 QUESTION #5 FULL TEXT : Do you snore loudly (louder than talking or can be heard through closed doors)? 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 Specify any problems Hx of Preganancy in last 3 No 06/13/25 18:29 Months Nurse Filling Out Transfusion NMARTY 06/13/25 18:29 & Questions: Date: 06/13/25 06/13/25 18:29 Time: 18:49 06/13/25 18:29 Patient unable to answer at this time (ie. confused, unrespo /Reproduction History /Reproductive History - staffing consultant: /Reproductive Hx- staffing consultant Hx Now No 06/13/25 20:30 Gestational Age (in weeks): EDC: Hx Hx Para Hx Section SAB No 06/13/25 20:30 Active Medications Active Medications: Current Medications Generic Name Dose Route Start Last Admin Trade Name Freq PRN Reason Stop Dose Admin Cholecalciferol 25 mcg 06/14/25 10:00 06/14/25 09:45 Cholecalciferol (Vit D3) 25 Mcg Tablet (1,000 Units) PO Not Given DAILY ANIA Enoxaparin Sodium 40 mg 06/14/25 10:00 06/14/25 09:45 Enoxaparin 40 Mg/0.4 Ml Syringe SC Not Given DAILY ANIA Hydromorphone HCl 1 mg 06/14/25 10:01 Hydromorphone 0.5 Mg/0.5 Ml Syringe IV Q3H PRN PRN Pain Score 6-10 Sodium Chloride 250 mls @ 15 mls/hr 06/13/25 19:34 IV .[id number] PRN Saline Flush Sodium Chloride 250 mls @ 15 mls/hr 06/13/25 19:34 IV .[id number] PRN Additional IVPB Infusion Lactated Ringer's 1,000 mls @ 100 mls/hr 06/14/25 10:15 06/14/25 11:22 IV 06/15/25 06:14 100 mls/hr .Q10H ANIA Administration Loratadine 10 mg 06/14/25 10:00 06/14/25 09:45 Loratadine 10 Mg Tablet PO Not Given DAILY ANIA Melatonin 3 mg 06/13/25 18:28 Melatonin 3 Mg Tablet PO QHS PRN PRN INSOMNIA Ondansetron HCl 4 mg 06/13/25 18:28 06/14/25 15:42 Ondansetron 4 Mg/2 Ml Vial IV 4 mg Q8H PRN PRN Administration NAUSEA/VOMITING Oxycodone HCl 5 mg 06/13/25 22:00 06/14/25 03:40 Oxycodone 5 Mg Tablet PO 5 mg Q4H PRN PRN Administration Pain Score 4-10 Pantoprazole Sodium 20 mg 06/14/25 10:00 06/14/25 09:45 Pantoprazole Sodium 20 Mg Tablet PO Not Given DAILY [facility] Rizatriptan Benzoate 10 mg 06/14/25 13:40 06/14/25 14:34 Rizatriptan Benzoate 10 Mg Tablet PO 10 mg Q2H PRN PRN Administration MIGRAINE SYMPTOMS Sodium Chloride 10 - 40 ml 06/13/25 19:34 0.9% Saline Lock 10 Ml Syringe IV UD PRN SALINE FLUSH Sucralfate 1 gm 06/14/25 16:00 06/14/25 15:31 Sucralfate 1 Gm Tablet PO Not Given 1HR_ACHS ANIA PFSH Medical History Post-menopausal Wears glasses Anxiety Arthritis Easy bruising Migraine headache Shortness of breath on exertion Smoker History of edema History of pain when walking Home Medications ?Medication ?Instructions ?Recorded ?Last Taken ?Type cholecalciferol (vitamin D3) 25 25 mcg PO DAILY 09/24/24 History mcg (1,000 unit) capsule (Vitamin D3) diclofenac sodium 75 mg 75 mg PO BID 08/29/24 History tablet,delayed release loratadine 10 mg capsule 10 mg PO DAILY 08/29/2409/03 History melatonin 3 mg capsule 3 mg PO QHS 08/29/24 Unknown History sumatriptan succinate 50 mg tablet 50 mg PO PRN PRN mi graine headache 08/29/24 Unknown History omeprazole 20 mg capsule,delayed 20 mg PO DAILY Unknown History release sucralfate 1 gram tablet 1 g PO 4X/DAY 06/13/25 Unkno wn History Allergy/AdvReac Type Severity Reaction Status Date / Time No Known Allergies Allergy Verified 09/25/24 06:02 Surgical History Hx of total knee arthroplasty Hx of arthroscopic knee surgery History of endometrial ablation History of ankle surgery History of carpal tunnel surgery of right wrist Hx of foot surgery Hx of tubal ligation Social History Smoking Status: Current every day smoker tobacco type: cigarettes Review of Systems (Anesthesia) ROS Narrative System reviewed and no additional complaints, except as documented. 06/14/25 1556 <Electronically signed by Syd eastman MD> Date _ Syd Dwyer MD Cosigner Signature: Date CC: ~ Signed [facility] Work Phone: [phone]) 891-857909-11-2025 Consult note [facility] Medical Records Department [address] [place] [address] Consultation - GI 06/14/25 1650 MR#: [id number] Acct: [id number] Name: CORIE LUGO DONOVAN Rep #:[id number] : 1970 54 From: Killian Friend PCP: Dr. Joshua Whitlock MD Status:ADM [place] [facility] [id number] HPI Consult Data Date of Consult: 06/14/25 HPI Narrative Reason for Consultation: jaundice HPI Narrative: CORIE LUGO, is a 54-year-old female presents with painless, progressive yellow discoloration of her skin and eyes over the past two to three weeks. She reports associated generalized pruritus (itching) and dark urine. She also noteslight-colored, derik-like stools. The patient reports a 10-pound u nintentional weight loss over the past month. She denies any abdominal pain, nausea, vomiting, or fever. She is a current smoker. No alcohol use reported. Lives withher . CT Scan (Abdomen/Pelvis): * 14 mm mass in the head of the pancreas. * Presence of gallstones. * Dilation of the common bile duct, likely due to compression by the pancreatic head mass. * No evidence of metastasis on this scan. [facility] Medical History Post-menopausal Wears glasses Anxiety Arthritis Easy bruising Migraine headache Shortness of breath on exertion Smoker History of edema History of pain when walking Home Medications ?Medication ?Instructions ?Recorded ?Last Taken ?Type cholecalciferol (vitamin D3) 25 25 mcg PO DAILY 09/24/24 History mcg (1,000 unit) capsule (Vitamin D3) diclofenac sodium 75 mg 75 mg PO BID 08/29/24 History tablet,delayed release loratadine 10 mg capsule 10 mg PO DAILY 08/29/2409/03 History melatonin 3 mg capsule 3 mg PO QHS 08/29/24 Unknown History sumatriptan succinate 50 mg tablet 50 mg PO PRN PRN mi graine headache 08/29/24 Unknown History omeprazole 20 mg capsule,delayed 20 mg PO DAILY Unknown History release sucralfate 1 gram tablet 1 g PO 4X/DAY 06/13/25 Unkno wn History Allergy/AdvReac Type Severity Reaction Status Date / Time No Known Allergies Allergy Verified 09/25/24 06:02 Surgical History Hx of total knee arthroplasty Hx of arthroscopic knee surgery History of endometrial ablation History of ankle surgery History of carpal tunnel surgery of right wrist Hx of foot surgery Hx of tubal ligation Social History Smoking Status: Current every day smoker tobacco type: cigarettes ROS Constitutional Constitutional: Denies fatigue, fever(s), poor appetite, weight gain or weight loss Gastrointestinal Gastrointestinal: Denies belching, bloating, change in bowel habits, change in stool character, chewing difficulty, coffee ground emesis, constipation, cramping, diarrhea, dyspepsia, dysphagia, earlysatiety, excessive flatus, fecalincontinence, heartburn, hematemesis, hematochezia, hemorrhoids, loose stools, melena, nausea, odynophagia, rectal bleeding, tenesmus, vomiting or weight changes Physical Exam Const alert, oriented x3, no apparent distress and healthy appearing General Appearance: cooperative GI normal to inspection, nondistended, normoactive bowel sounds, soft to palpation,non-tender and non-distended Percussion: normal to percussion Rectal Exam: deferred Lab / Micro Data 06/14/25 04:10 06/14/25 04:10 Labs: Laboratory Results - last 24 hr 06/14/25 04:10: WBC 7.9, RBC 4.49, Hgb 12.8, Hct 37.2, MCV 82.9, MCH 28.5, MCHC 34.4, RDW Std Deviation 46.5 H, RDW Coeff of Morelia 15.8 H, Plt Count 285, MPV 11.6, Sodium 140, Potassium 4.0, Chloride 104, Carbon Dioxide 22.9, Anion Gap 12, BUN 17, Creatinine 0.91, Estim Creat Clear Calc 69.75, Est GFR (MDRD) Non- Af74, BUN/Creatinine Ratio 19.1, Glucose 114 H, Calcium 9.5, Total Bilirubin 5.50 H, AST 481 H, ALT 950 H, Alkaline Phosphatase 820 H, Total Protein 6.4, Albumin 3.7, Globulin 2.7, Albumin/Globulin Ratio 1.4 Imaging Radiology Impression Gallbladder Ultrasound 06/13/25 15:19 IMPRESSION: Dilated intrahepatic biliary ducts. Normal gallbladder. Reading Location: [facility] Assessment & Plan Assessment/Plan (1) Mass of head of pancreas: (2) Biliary obstruction: (3) Abdominal pain: PLAN: Plan Problem List: * Painless obstructive jaundice:?Likely caused by the pancreatic head mass compressing the common bile duct. * Pancreatic head mass (14mm):?Highly suspicious for pancreatic adenocarcinoma, especially given the painless jaundice, smoking history, and weight loss. * Cholelithiasis (gallstones):?Found on imaging, though not the primary cause of the current obstruction. * Nicotine dependence:?Continued smoking is a significant risk factor for pancreatic malignancy. * Unintentional weight loss:?A constitutional symptom often associated with malignancy. * Pruritus:?Secondary to bile salt deposition in the skin. Differential Diagnosis: * Pancreatic Adenocarcinoma:?Most likely diagnosis, consistent with painless jaundice, head of pancreas mass, weight loss, and smoking history. * Autoimmune Pancreatitis (AIP):?Can present with painless jaundice and a pancreatic mass, but typically responds to steroids. Less likely given her smoking history and significant weight loss. * Cholangiocarcinoma:?Malignancy of the bile duct, which can also cause obstructive jaundice. The CT finding of a discrete pancreatic head mass makes this less likely, though still possible. * Chronic Pancreatitis:?Can cause bile duct strictures and mimic a mass on imaging, but typically presents with significant pain. ?Plan Therapeutic: * Biliary Decompression:?Plan for ERCP with stent placement to relieve the obstructive jaundice. This will alleviate symptoms like pruritus and allow for further definitive treatment once the pathology is confirmed. * Surgical Consultation:?Refer to a hepatobiliary surgeon for evaluation of resectability. * Oncology Consultation:?Refer to oncology for discussion of treatment options, including chemotherapy, depending on the stage and resectability of the tumor. * Pain/Symptom Management:?Prescribe medication for pruritus as needed. Continue to monitor for abdominal pain. Diagnostic: * Endoscopic Ultrasound with Fine Needle Aspiration (:?Recommended for definitive tissue diagnosis of the pancreatic head mass. * Tumor Markers:?Order CA 19-9. While not specific, elevated levels support the suspicion of pancreatic cancer, though they can also be elevated in other conditions causing jaundice. * Labs:?Complete metabolic panel, CBC, amylase, lipase, and coagulation studies. Charges/Coding Visit Charges Inpatient E&M: 13084 Init Hosp L3 06/14/25 1654 Cosigner Signature (if applicable): CC: Dr. Joshua Whitlock MD~ Signed [facility]09-11-2025 Consult note [facility] Medical Records Department [address] [place] [address] Pre-Anesthesia Evaluation 06/14/25 1548 MR#: [id number] Acct: [id number] Name: CORIE LUGO [facility] Rep #:[id number] : 1970 54 From: Syd Dwyer MD PCP: Dr. Joshua Whitlock MD Status:ADM IN Y Race: C Location: MS3 MS309 -1 ASA Classification* ASA Classification ASA Classification: 2 Assessment & Plan Anesthesia* Anesthesia Assessment Anesthesia Assessment: Discussed sedation and/or anesthesia options, risks, benefits, and alternatives with patient/parents/legal guardian/POA. Questions invited. The patient/parents/legal guardian/POA seems to understand and agrees to proceedwith anesthesia plan. Reviewed the physical assessment, medical history, allergy history and patient home medications list prior to surgery/procedure/anesthetic and documented any changes. Performed airway and anesthesia risk assessments. Anesthesia Type Anesthesia Type: General History Source History Obtained from:: Patient and Chart Anesthesia Focused Assessment* Temperature: 97.3 F Pulse Rate: 60 Blood Pressure: 107/56 Respiratory Rate: 18 Pulse Ox: 95 Oxygen Delivery Method: Room Air Airway Assessment Mouth opens: >3 cm Mallampati Score: III Teeth Condition: Intact Neck Range of motion (ROM): Full ROM Labs Anesthesia Preop lab: CBC WBC 7.9 K/mm3 (4.4-11.0) 06/14/25 04:10 06/14/25 RBC 4.49 M/mm3 (4.2-5.4) 06/14/25 04:10 06/14/25 Hgb 12.8 g/dL (12.0-15.0) 06/14/25 04:10 06/14/25 Hct 37.2 % (37-47) 06/14/25 04:10 06/14/25 Plt Count 285 K/mm3 (150-450) 06/14/25 04:10 06/14/25 CHEMISTRY Potassium 4.0 mmol/L (3.3-5.1) 06/14/25 04:10 06/14/25 Sodium 140 mmol/L (133-145) 06/14/25 04:10 06/14/25 Magnesium 2.2 mg/dL (1.6-2.6) 09/06/24 08:09 09/06/24 BUN 17 mg/dL (4-19) 06/14/25 04:10 06/14/25 Creatinine 0.91 mg/dL (0.70-1.20) 06/14/25 04:10 06/14/25 Glucose 114 mg/dL (70-99) H 06/14/25 04:10 06/14/25 POC Glucose 87 mg/dL (74-106) 09/25/24 06:09 09/25/24 COAG PT 12.9 SECONDS (11.7-14.9) 09/06/24 08:09 Pre-Assessment Diagnosis/Proposed Procedure Planned Operative Procedure(s): Endoscopic retrograde cholangiopancreatography. Anesthesia History Anesthesia History - staffing consultant: Anesthesia History - staffing consultant Hx Hospitalization No 08/29/24 08:48 Any Problems With Anesthesia Yes: vomits alot 06/13/25 20:30 Cholinesterase deficiency No 06/13/25 20:30 You/Your Family Experience No 06/13/25 20:30 fever (hyperthermia) with Relationship Recent Exposure to Contagious No 06/13/25 20:30 Disease Does patient have nerve No 06/13/25 20:30 stimulator Patient instructed to have No 06/13/25 20:30 device shut off --Does patient have Pacemaker or ICD? When Was Last Pacemaker Check QUESTION #4 FULL TEXT: You/Your Family Experience fever (hyperthermia) with Anesthesia Last Oral Intake Last Oral intake: Last Oral Intake NPO since Meds taken in AM with sips of water? Meds patient instructed to take am of surgery Any additional information?: Yes NPO since: 00:00 Meds taken in AM with sips of water?: Yes Meds patient instructed to take am of surgery: Maxalt, Oxy IR. PONV PONV - staffing consultant: PONV - staffing consultant Female HX of Motion Sickness HX of N/V After Surgery Non-Smoker Duration of Surgery greater than 60 minutes Number of Risk Factors PONV Score Height & Weight Height & Weight: Anesthesia: Height & Weight Height 5 ft 2 in 06/14/25 12:25 Weight: 84.9 kg 06/14/25 12:25 Body Mass Index (BMI) 34.2 06/13/25 18:29 Respiratory Assessment Respiratory Assessment - staffing consultant: Respiratory Tract Infection Hx - staffing consultant Hx Respiratory Tract Infection No 06/13/25 20:30 STOP Sleep Apnea STOP Sleep Apnea - staffing consultant: STOP Sleep Apnea - staffing consultant Hx Hypertension No 06/13/25 18:29 Hx Sleep Apnea No 06/13/25 18:29 CPAP No 06/13/25 18:29 BIPAP Do you snore loudly (louder No 06/13/25 18:29 than talking or can be heard Do you often feel tired/ No 06/13/25 18:29 fatigued/ sleepy during daytime? Has anyone observed you stop No 06/13/25 18:29 breathing during sleep? STOP Results Negative 06/13/25 18:29 QUESTION #5 FULL TEXT : Do you snore loudly (louder than talking or can be heard through closeddoors)? 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 Specify any problems Hx of Preganancy in last 3 No 06/13/25 18:29 Months Nurse Filling Out Transfusion NMARTY 06/13/25 18:29 & Questions: Date: 06/13/25 06/13/25 18:29 Time: 18:49 06/13/25 18:29 Patient unable to answer at this time (ie. confused, unrespo /Reproduction History /Reproductive History - staffing consultant: /Reproductive Hx- staffing consultant Hx Now No 06/13/25 20:30 Gestational Age (in weeks): EDC: Hx Hx Para Hx Section SAB No 06/13/25 20:30 Active Medications Active Medications: Current Medications Generic Name Dose Route Start Last Admin Trade Name Freq PRN Reason Stop Dose Admin Cholecalciferol 25 mcg 06/14/25 10:00 06/14/25 09:45 Cholecalciferol (Vit D3) 25 Mcg Tablet (1,000 Units) PO Not Given DAILY ANIA Enoxaparin Sodium 40 mg 06/14/25 10:00 06/14/25 09:45 Enoxaparin 40 Mg/0.4 Ml Syringe SC Not Given DAILY ANIA Hydromorphone HCl 1 mg 06/14/25 10:01 Hydromorphone 0.5 Mg/0.5 Ml Syringe IV Q3H PRN PRN Pain Score 6-10 Sodium Chloride 250 mls @ 15 mls/hr 06/13/25 19:34 IV .[id number] PRN Saline Flush Sodium Chloride 250 mls @ 15 mls/hr 06/13/25 19:34 IV .[id number] PRN Additional IVPB Infusion Lactated Ringer's 1,000 mls @ 100 mls/hr 06/14/25 10:15 06/14/25 11:22 IV 06/15/25 06:14 100 mls/hr .Q10H ANIA Administration Loratadine 10 mg 06/14/25 10:00 06/14/25 09:45 Loratadine 10 Mg Tablet PO Not Given DAILY ANIA Melatonin 3 mg 06/13/25 18:28 Melatonin 3 Mg Tablet PO QHS PRN PRN INSOMNIA Ondansetron HCl 4 mg 06/13/25 18:28 06/14/25 15:42 Ondansetron 4 Mg/2 Ml Vial IV 4 mg Q8H PRN PRN Administration NAUSEA/VOMITING Oxycodone HCl 5 mg 06/13/25 22:00 06/14/25 03:40 Oxycodone 5 Mg Tablet PO 5 mg Q4H PRN PRN Administration Pain Score 4-10 Pantoprazole Sodium 20 mg 06/14/25 10:00 06/14/25 09:45 Pantoprazole Sodium 20 Mg Tablet PO Not Given DAILY ANIA Rizatriptan Benzoate 10 mg 06/14/25 13:40 06/14/25 14:34 Rizatriptan Benzoate 10 Mg Tablet PO 10 mg Q2H PRN PRN Administration MIGRAINE SYMPTOMS Sodium Chloride 10 - 40 ml 06/13/25 19:34 0.9% Saline Lock 10 Ml Syringe IV UD PRN SALINE FLUSH Sucralfate 1 gm 06/14/25 16:00 06/14/25 15:31 Sucralfate 1 Gm Tablet PO Not Given 1HR_ACHS ANIA PFSH Medical History Post-menopausal Wears glasses Anxiety Arthritis Easy bruising Migraine headache Shortness of breath on exertion Smoker History of edema History of pain when walking Home Medications ?Medication ?Instructions ?Recorded ?Last Taken ?Type cholecalciferol (vitamin D3) 25 25 mcg PO DAILY 09/24/24 History mcg (1,000 unit) capsule (Vitamin D3) diclofenac sodium 75 mg 75 mg PO BID 08/29/24 History tablet,delayed release loratadine 10 mg capsule 10 mg PO DAILY 08/29/2409/03 History melatonin 3 mg capsule 3 mg PO QHS 08/29/24 Unknown History sumatriptan succinate 50 mg tablet 50 mg PO PRN PRN mi graine headache 08/29/24 Unknown History omeprazole 20 mg capsule,delayed 20 mg PO DAILY Unknown History release sucralfate 1 gram tablet 1 g PO 4X/DAY 06/13/25 Unkno wn History Allergy/AdvReac Type Severity Reaction Status Date / Time No Known Allergies Allergy Verified 09/25/24 06:02 Surgical History Hx of total knee arthroplasty Hx of arthroscopic knee surgery History of endometrial ablation History of ankle surgery History of carpal tunnel surgery of right wrist Hx of foot surgery Hx of tubal ligation Social History Smoking Status: Current every day smoker tobacco type: cigarettes Review of Systems (Anesthesia) ROS Narrative System reviewed and no additional complaints, except as documented. 06/14/25 1556 raiza GALLEGOS> Date _ Syd Dwyer MD Cosigner Signature: Date CC: ~ Signed [facility]09-11-2025 Discharge summary Author Debi Eckert [facility] Note Date/Time June 13, 2025 11:27pm [facility] Medical Records Department [address] [place] [address] Emergency Department Summary 06/13/25 MR#: [id number] Acct: [id number] Name: CORIE LUGO Rep #:[id number] : 1970 54 From: Debi Eckert DO PCP: Dr. Joshua Whitlock MD Status:ADM IN Location: MS3 ST032-6 HPI HPI - GI History of Present Illness Chief Complaint: Abd Pain Detail of Chief Complaint: Abdominal pain Informant: patient Narrative Narrative: Patient presents with abdominal pain that she has had for several months. Initially she had lost 30 pounds with it. Pain then kind of resolved and went away after a while was treated for possible GERD. Pain came back about a week and a half ago when she lost about 10 pounds since then. Not having pain in herright side. Urine is dark. She has no urinary symptoms otherwise. Denies dysuria urgency or frequency. She said no fever chills or sweats. Pain made worse by eating. No prior abdominal surgeries. [facility] Medical History Post-menopausal Wears glasses Anxiety Arthritis Easy bruising Migraine headache Shortness of breath on exertion Smoker History of edema History of pain when walking Home Medications ?Medication ?Instructions ?Recorded ?Last Taken ?Type cholecalciferol (vitamin D3) 25 25 mcg PO DAILY 09/24/24 History mcg (1,000 unit) capsule (Vitamin D3) diclofenac sodium 75 mg 75 mg PO BID 08/29/24 History tablet,delayed release loratadine 10 mg capsule 10 mg PO DAILY 08/29/2409/03 History melatonin 3 mg capsule 3 mg PO QHS 08/29/24 Unknown History sumatriptan succinate 50 mg tablet 50 mg PO PRN PRN mi graine headache 08/29/24 Unknown History tramadol 50 mg tablet 50 - 100 mg PO Q6H PRN PRN p ain 08/29/24 Unknown History turmeric 400 mg capsule 1,000 mg PO DAILY 08/29/24 1 11/21/23 History aspirin 81 mg capsule 81 mg PO BID 09/25/24 History Allergy/AdvReac Type Severity Reaction Status Date / Time No Known Allergies Allergy Verified 09/25/24 06:02 Surgical History Hx of total knee arthroplasty Hx of arthroscopic knee surgery History of endometrial ablation History of ankle surgery History of carpal tunnel surgery of right wrist Hx of foot surgery Hx of tubal ligation Social History Smoking Status: Current every day smoker tobacco type: cigarettes ROS ROS ED ROS Narrative Weight loss Review of Systems ROS Unobtainable: other Constitutional Constitutional ED: Reports lethargy; Denies chills, fever(s), sweats or weight loss Eyes Eyes: Denies blurry vision, change in vision or diplopia ENT ENT ED: Denies rhinorrhea or sore throat Cardiovascular Cardiovascular: Denies chest pain, orthopnea or racing heartbeat Respiratory/Chest Respiratory/Chest: Denies cough, dyspnea, dyspnea on exertion, orthopnea or sputum Gastrointestinal Gastrointestinal: Reports abdominal pain and nausea; Denies diarrhea or vomiting Genitourinary Genitourinary ED: Denies dysuria, hematuria or urinary frequency Musculoskeletal Musculoskeletal: Denies arthralgias, back pain, myalgias or neck pain Integumentary Denies abscess, Abrasions or rash Neurologic Neurologic: Denies headache(s) or weakness Psychiatric Psychiatric: Denies anxiety, depression or suicidal thoughts Endocrine Endocrinology: Denies polydipsia, polyphagia or polyuria Hematologic/Lymphatic Hematologic/Lymphatic: Denies easy bleeding, easy bruising or lymphadenopathy Allergic/Immunologic Allergic/Immunologic ED: Denies mouth swelling, tongue swelling or urticaria EXAM Physical Exam Const Vital Signs: 06/13/25 13:36 Temperature 97.6 F L Temperature Source Temporal Pulse Rate 79 Respiratory Rate 16 Blood Pressure 123/77 H Blood Pressure Mean 92 Pulse Ox 98 Oxygen Delivery Method Room Air Positive well nourished and well developed General Appearance ED: well developed and NAD HEENT Reports TM's clear and moist mucous membranes HEENT Narrative: Mild scleral icterus normocephalic and atraumatic; Negative for trauma or tenderness Tympanic Membrane ED: Yes TM's clear Eyes PERRL and EOMs intact bilaterally General Eye ED: Yes scleral icterus; Negative for pale conjunctiva Neck no lymphadenopathy, supple and no JVD General: Negative for tenderness Chest Wall inspection of chest normal and palpation of chest normal Chest: Negative for tenderness Resp normal respiratory effort and clear to auscultation bilaterally Effort and Inspection: Negative for respiratory distress or pain with movement Auscultation: Negative for rhonchi, wheezes or diminished lung sounds Cardio regular rate, regular rhythm, S1 normal heart sound, S2 normal heart sound and no murmurs Peripheral Pulses: pulses 2+ throughout GI normal to inspection, nondistended, normoactive bowel sounds, soft to palpation,non-distended and no masses GI Narrative: Tenderness palpation over right upper quadrant some mild guarding. There is no rebound, rigidity, or peritoneal signs Back/Spine no CVA tenderness and no thoracic nor lumbar tenderness Extremity normal to inspection General Extremety ED: Negative for edema General Extremity: Negative for edema Neuro oriented x3, CN's II-XII intact bilaterally, no sensory deficits noted and gait normal Sensorium / Orientation: awake, alert, oriented to person, oriented to place andoriented to time Motor Exam: strength 5/5 throughout and strength abnormal Psych mental status grossly normal Skin no rashes or lesions noted and no wounds MDM MDM MDM Narrative Medical decision making narrative: Patient presents to the emergency department with abdominal pain and inability to eat. Tenderness to the right upper quadrant and right flank. IV line established. CBC with differential obtained showed a white count of 9.4 with hemoglobin 13.6 and platelet count of 352. Chemistries unremarkable. LFTs wereabnormal with total bilirubin of 5.65, AST 507, ALT 1069, alk phos 886. Lipase normal at 12. Urinalysis negative for infection. CT scan of the abdomen pelvisshowed dilated bile ducts and pancreatic head mass. Patient also noted to have some small gallstones. Gallbladder ultrasound ordered and pending. Discussed results with general surgeon on-call Dr. Wilks who recommended we discussed withGI as he did not think there was any need for emergent surgical intervention. Spoke with Dr. Wallace who will see patient in consultation. Discussed with hospitalist to evaluate patient for admission for abdominal pain with biliary obstruction secondary to pancreatic head mass. Lab Data Attestation: I reviewed the patient's lab results. Labs: Laboratory Results - last 24 hr 06/13/25 06/13/25 13:42 13:54 WBC 9.4 RBC 4.82 Hgb 13.6 Hct 40.6 MCV 84.2 MCH 28.2 MCHC 33.5 RDW Std Deviation 49.0 H RDW Coeff of Morelia 16.0 H Plt Count 352 MPV 12.1 H Immature Gran % (Auto) 0.300 Neut % (Auto) 60.7 Lymph % (Auto) 27.7 Major % (Auto) 8.7 Eos % (Auto) 1.8 Baso % (Auto) 0.8 Absolute Neuts (auto) 5.7 Absolute Lymphs (auto) 2.61 Nucleated RBC % 0 Sodium 139 Potassium 4.2 Chloride 104 Carbon Dioxide 20.7 L Anion Gap 14 BUN 20 H Creatinine 1.01 Estim Creat Clear Calc 62.84 Est GFR (MDRD) Non-Af 65 BUN/Creatinine Ratio 19.8 Glucose 99 Calcium 10.0 Total Bilirubin 5.65 H AST 507 H ALT 1069 H Alkaline Phosphatase 886 H Total Protein 7.3 Albumin 4.0 Globulin 3.3 Albumin/Globulin Ratio 1.2 Lipase 12 L Urine Color [place] Urine Clarity Clear Urine pH 5.0 Ur Specific [place] 1.020 Urine Protein 100 H Urine Glucose (UA) Normal Urine Ketones 15 H Urine Occult Blood 25 H Urine Nitrite Negative Urine Bilirubin 6 H Urine Urobilinogen 4 H Ur Leukocyte Esterase 500 H Urine RBC 0-5 SEEN Urine WBC 10-25 SEEN Ur Squamous Epith Cells 5-10 SEEN Amorphous Sediment 3+ URATE Urine Bacteria 0 SEEN Urine Mucus 0 SEEN Radiography Diagnostic Testing: Clinical Impression(s) from Imaging Studies Abdomen/Pelvis CT 06/13/25 15:40 IMPRESSION: Dilated intrahepatic biliary ducts in the common bile duct down to the head of the pancreas were I suspect a 14 mm mass in the head of the pancreas. Findings suggestive of small gallstones. Reading Location: [id number] Discharge Plan Triage Chief Complaint: Abd Pain ED Provider: Debi Eckert Dx/Rx/DC Orders Clinical Impression: Abdominal pain, Biliary obstruction, Mass of head of pancreas Prescriptions: No Action tramadol 50 mg tablet 50 - 100 mg PO Q6H PRN PRN (Reason: pain) diclofenac sodium 75 mg tablet,delayed release (DR/EC) 75 mg PO BID cholecalciferol (vitamin D3) [Vitamin D3] 25 mcg (1,000 unit) capsule 25 mcg PO DAILY turmeric 400 mg capsule 1,000 mg PO DAILY melatonin 3 mg capsule 3 mg PO QHS loratadine 10 mg capsule 10 mg PO DAILY sumatriptan succinate 50 mg tablet 50 mg PO PRN PRN (Reason: migraine headache) aspirin 81 mg capsule 81 mg PO BID Primary Care Provider: Joshua Whitlock Referrals: Joshua Whitlock MD [Primary Care Provider] - Print Language: [place] Disposition Disposition: Acute Care Hospital [facility] What to do if you have Problems For any increased pain, shortness of breath, bleeding, nausea or vomiting, chestpain, or any unexpected problems, contact your Primary Care Provider. Call [facility] ([phone]) or report to the closest Emergency Room. Call 911 if necessary. 06/13/254 <Electronically signed by Debi Eckert DO> Cosigner Signature (if applicable): CC: Dr. Joshua Whitlock MD ~ Signed [facility] Work Phone: [phone] History and physical note Author Maynor Blanton [facility] Note Date/Time June 13, 2025 10:08pm [facility] Medical Records Department [address] [place] [id number] H&P Exam - Hospitalist 06/13/25 1655 MR#: [id number] Acct: [id number] Name: CORIE LUGO DONOVAN Rep #:[id number] : 1970 54 From: Maynor patel DO PCP: Dr. Joshua Whitlock MD Status:ADM [place] [facility] [place] HPI - General General Date of Admission: 06/13/25 Date of Service: 06/13/25 Chief Complaint: Abdominal pain with jaundice HPI Narrative CORIE LUGO, is a 54 F who presented to [facility] ED on 06/13/2025 with abdominal pain and jaundice. Patient has minimal past medical history significant for only current everyday smoker and class I obesity. She started to have upper abdominal/epigastric pain about 3 months ago. She has significant pain and discomfort with eating and has had very poor p.o. intake over that time and has lost approximately 30 pounds. Over the past several daysgerman has noticed that her urine has become more dark. She was scheduled to see Dr. Wallace in the office for consultation this coming Wednesday, but given her ongoing symptoms she decided to come into the ED for further evaluation. Labs notable for total bilirubin 5.65, AST 507, ALT 1069, alk phos 886. CT abdomen pelvis showed dilated intrahepatic biliary ducts in the common bile duct down tothe head of the pancreas with a suspected 14 mm mass in the head of the pancreas; was also noted to have small gallstones. Right upper quadrant ultrasound showed normal gallbladder, moderate intrahepatic biliary dilatation, normal gallbladder, no other concerning findings. Case was discussed with Dr. Wilks who noted no surgical needs at this time. Case was then discussed with Dr. Wallace who was agreeable to admitting the patient with plan for ERCP for further evaluation. Hospitalist was then contacted for admission. I saw the patient at bedside in the ED, was present. Patient was mildly fatigued appearing but otherwise sitting back fairly comfortably in her chair, conversingnormally and in no acute distress. Denied any significant abdominal pain or discomfort currently. Denies any fevers or chills. No other acute concerns at this time. Will be admitted for further management. [facility] Medical History Post-menopausal Wears glasses Anxiety Arthritis Easy bruising Migraine headache Shortness of breath on exertion Smoker History of edema History of pain when walking Home Medications ?Medication ?Instructions ?Recorded ?Last Taken ?Type cholecalciferol (vitamin D3) 25 25 mcg PO DAILY 09/24/24 History mcg (1,000 unit) capsule (Vitamin D3) diclofenac sodium 75 mg 75 mg PO BID 08/29/24 History tablet,delayed release loratadine 10 mg capsule 10 mg PO DAILY 08/29/2409/03 History melatonin 3 mg capsule 3 mg PO QHS 08/29/24 Unknown History sumatriptan succinate 50 mg tablet 50 mg PO PRN PRN mi graine headache 08/29/24 Unknown History omeprazole 20 mg capsule,delayed 20 mg PO DAILY Unknown History release sucralfate 1 gram tablet 1 g PO 4X/DAY 06/13/25 Unkno wn History Allergy/AdvReac Type Severity Reaction Status Date / Time No Known Allergies Allergy Verified 09/25/24 06:02 Surgical History Hx of total knee arthroplasty Hx of arthroscopic knee surgery History of endometrial ablation History of ankle surgery History of carpal tunnel surgery of right wrist Hx of foot surgery Hx of tubal ligation Social History Smoking Status: Current every day smoker tobacco type: cigarettes ROS Constitutional Constitutional: Reports anorexia and change in weight; Denies chills, fatigue, fever(s) or weakness Cardiovascular Cardiovascular: Denies chest pain Respiratory/Chest Respiratory/Chest: Denies shortness of breath at rest Gastrointestinal Gastrointestinal: Reports abdominal pain and nausea; Denies constipation, diarrhea or vomiting Genitourinary Genitourinary: Denies dysuria Musculoskeletal Musculoskeletal: Denies arthralgias or myalgias Vital Signs Vital Signs Vital Signs: 06/13/25 13:36 Temperature 97.6 F L Temperature Source Temporal Pulse Rate 79 Respiratory Rate 16 Blood Pressure 123/77 H Blood Pressure Mean 92 Pulse Ox 98 Oxygen Delivery Method Room Air Weight Weight: 84.867 kg Body Mass Index (BMI) 34.2 Physical Exam Const alert, oriented x3 and no apparent distress Constitutional Narrative: Middle-aged female, class I obesity, mildly fatigued appearing but otherwise sitting back comfortably in bedside chair, conversing normally, in no acute distress. General Appearance: cooperative and comfortable HEENT normocephalic, head/scalp atraumatic, hearing grossly normal bilaterally, nasal mucous membranes and turbinates normal and moist oral mucous membranes Eyes PERRL, EOMs intact bilaterally and conjunctivae normal Neck full ROM Chest inspection of chest normal Resp normal respiratory effort, normal air movement, no use of accessory muscles and clear to auscultation bilaterally Cardio regular rate, regular rhythm, no murmurs and peripheral pulses 2+ throughout GI normal to inspection, nondistended, normoactive bowel sounds, soft to palpation,non-tender and non-distended Back/Spine normal ROM Extremity normal to inspection, full ROM and no pedal edema Skin Skin Narrative: Mild jaundice noted. Psych mental status grossly normal Results Lab / Micro Data 06/13/25 13:42 06/13/25 13:42 Labs: Laboratory Results - last 24 hr 06/13/25 13:42: WBC 9.4, RBC 4.82, Hgb 13.6, Hct 40.6, MCV 84.2, MCH 28.2, MCHC 33.5, RDW Std Deviation 49.0 H, RDW Coeff of Morelia 16.0 H, Plt Count 352, MPV 12.1H, Immature Gran % (Auto) 0.300, Neut % (Auto) 60.7, Lymph % (Auto) 27.7, Major %(Auto) 8.7, Eos % (Auto) 1.8, Baso % (Auto) 0.8, Absolute Neuts (auto) 5.7, Absolute Lymphs (auto) 2.61, Nucleated RBC % 0, Sodium 139, Potassium 4.2, Chloride 104, Carbon Dioxide 20.7 L, Anion Gap 14, BUN 20 H, Creatinine 1.01, Estim Creat Clear Calc 62.84, Est GFR (MDRD) Non-Af 65, BUN/Creatinine Ratio 19.8, Glucose 99, Calcium 10.0, Total Bilirubin 5.65 H, AST 507 H, ALT 1069 H, Alkaline Phosphatase 886 H, Total Protein 7.3, Albumin 4.0, Globulin 3.3, Albumin/Globulin Ratio 1.2, Lipase 12 L 06/13/25 13:54: Urine Color Lynn, Urine Clarity Clear, Urine pH 5.0, Ur Specific [place] 1.020, Urine Protein 100 H, Urine Glucose (UA) Normal, Urine Ketones 15 H, Urine Occult Blood 25 H, Urine Nitrite Negative, Urine Bilirubin 6H, Urine Urobilinogen 4 H, Ur Leukocyte Esterase 500 H, Urine RBC 0-5 SEEN, Urine WBC 10- 25 SEEN, Ur Squamous Epith Cells 5-10 SEEN, Amorphous Sediment 3+ URATE, Urine Bacteria 0 SEEN, Urine Mucus 0 SEEN Imaging Radiology Impression Abdomen/Pelvis CT 06/13/25 15:40 IMPRESSION: Dilated intrahepatic biliary ducts in the common bile duct down to the head of the pancreas were I suspect a 14 mm mass in the head of the pancreas. Findings suggestive of small gallstones. Reading Location: [id number] Assessment & Plan Assessment/Plan (1) Abdominal pain: (2) Biliary obstruction: (3) Mass of head of pancreas: PLAN: Plan Patient is a 54-year-old female who presented to [facility] ED on 06/13/2025 with abdominal pain and jaundice. 1. Abdominal pain with pancreatic head mass, biliary ductal dilation and elevated transaminases ? Admit under inpatient status to [facility]. GI consulted. Highest concern is for new diagnosis of pancreatic cancer with obstructive jaundice. CT abdomen pelvis showed dilated intrahepatic biliary ducts in the common bile duct down tothe head of the pancreas with a suspected 14 mm mass in the head of the pancreas. LFTs with total bilirubin 5.65, AST 507, ALT 1069, alk phos 886. Will keep n.p.o. at midnight with plan for ERCP tomorrow. Pain control with oxycodone as needed and IV Dilaudid as needed. Trend daily LFTs. Chronic medical conditions: ? Class I obesity: BMI 34 on admit. Complicates hospital course and care. ? Tobacco dependence: Current everyday smoker. Nicotine replacement therapy available per patient request. Discussed cessation on discharge. ? GERD: Continue home PPI. ? Seasonal allergies: Continue home loratadine. DVT prophylaxis: Lovenox CODE STATUS: Full code, verified Expected disposition: Home, TBD Total clinical time spent by myself addressing the patient's medical issues, reviewing all the data, and collaborating with patient's care team: 57 minutes. Charges/Coding Visit Charges Inpatient E&M: 64539 Init Hosp L2 06/13/252207 <Electronically signed by Maynor Blanton DO> Cosigner Signature (if applicable): CC: Dr. Maynor Blanton DO; Dr. Joshua Whitlock MD~ Signed [facility] Work Phone: [phone]) [phone] Discharge summary [facility] Medical Records Department [address] [place] [address] Emergency Department Summary 06/13/25 MR#: [id number] Acct: [id number] Name: CORIE LUGO Rep #:[id number] : 1970 54 From: Debi Eckert DO PCP: Dr. Joshua Whitlock MD Status:ADM IN Location: [place] [address]-1 HPI HPI - GI History of Present Illness Chief Complaint: Abd Pain Detail of Chief Complaint: Abdominal pain Informant: patient Narrative Narrative: Patient presents with abdominal pain that she has had for several months. Initially she had lost 30pounds with it. Pain then kind of resolved and went away after a while was treated for possible GERD. Pain came back about a week and a half ago when she lost about 10 pounds since then. Not having pain in herright side. Urine is dark. She has no urinary symptoms otherwise. Denies dysuria urgency or frequency. She said no fever chills or sweats. Pain made worse by eating. No prior abdominal surgeries. PFSH PFSH Medical History Post-menopausal Wears glasses Anxiety Arthritis Easy bruising Migraine headache Shortness of breath on exertion Smoker History of edema History of pain when walking Home Medications ?Medication ?Instructions ?Recorded ?Last Taken ?Type cholecalciferol (vitamin D3) 25 25 mcg PO DAILY 09/24/24 History mcg (1,000 unit) capsule (Vitamin D3) diclofenac sodium 75 mg 75 mg PO BID 08/29/24 History tablet,delayed release loratadine 10 mg capsule 10 mg PO DAILY 08/29/2409/03 History melatonin 3 mg capsule 3 mg PO QHS 08/29/24 Unknown History sumatriptan succinate 50 mg tablet 50 mg PO PRN PRN mi graine headache 08/29/24 Unknown History tramadol 50 mg tablet 50 - 100 mg PO Q6H PRN PRN p ain 08/29/24 Unknown History turmeric 400 mg capsule 1,000 mg PO DAILY 08/29/24 1 11/21/23 History aspirin 81 mg capsule 81 mg PO BID 09/25/24 History Allergy/AdvReac Type Severity Reaction Status Date / Time No Known Allergies Allergy Verified 09/25/24 06:02 Surgical History Hx of total knee arthroplasty Hx of arthroscopic knee surgery History of endometrial ablation History of ankle surgery History of carpal tunnel surgery of right wrist Hx of foot surgery Hx of tubal ligation Social History Smoking Status: Current every day smoker tobacco type: cigarettes ROS ROS ED ROS Narrative Weight loss Review of Systems ROS Unobtainable: other Constitutional Constitutional ED: Reports lethargy; Denies chills, fever(s), sweats or weight loss Eyes Eyes: Denies blurry vision, change in vision or diplopia ENT ENT ED: Denies rhinorrhea or sore throat Cardiovascular Cardiovascular: Denies chest pain, orthopnea or racing heartbeat Respiratory/Chest Respiratory/Chest: Denies cough, dyspnea, dyspnea on exertion, orthopnea or sputum Gastrointestinal Gastrointestinal: Reports abdominal pain and nausea; Denies diarrhea or vomiting Genitourinary Genitourinary ED: Denies dysuria, hematuria or urinary frequency Musculoskeletal Musculoskeletal: Denies arthralgias, back pain, myalgias or neck pain Integumentary Denies abscess, Abrasions or rash Neurologic Neurologic: Denies headache(s) or weakness Psychiatric Psychiatric: Denies anxiety, depression or suicidal thoughts Endocrine Endocrinology: Denies polydipsia, polyphagia or polyuria Hematologic/Lymphatic Hematologic/Lymphatic: Denies easy bleeding, easy bruising or lymphadenopathy Allergic/Immunologic Allergic/Immunologic ED: Denies mouth swelling, tongue swelling or urticaria EXAM Physical Exam Const Vital Signs: 06/13/25 13:36 Temperature 97.6 F L Temperature Source Temporal Pulse Rate 79 Respiratory Rate 16 Blood Pressure 123/77 H Blood Pressure Mean 92 Pulse Ox 98 Oxygen Delivery Method Room Air Positive well nourished and well developed General Appearance ED: well developed and NAD HEENT Reports TM's clear and moist mucous membranes HEENT Narrative: Mild scleral icterus normocephalic and atraumatic; Negative for trauma or tenderness Tympanic Membrane ED: Yes TM's clear Eyes PERRL and EOMs intact bilaterally General Eye ED: Yes scleral icterus; Negative for pale conjunctiva Neck no lymphadenopathy, supple and no JVD General: Negative for tenderness Chest Wall inspection of chest normal and palpation of chest normal Chest: Negative for tenderness Resp normal respiratory effort and clear to auscultation bilaterally Effort and Inspection: Negative for respiratory distress or pain with movement Auscultation: Negative for rhonchi, wheezes or diminished lung sounds Cardio regular rate, regular rhythm, S1 normal heart sound, S2 normal heart sound and no murmurs Peripheral Pulses: pulses 2+ throughout GI normal to inspection, nondistended, normoactive bowel sounds, soft to palpation,non-distended and no masses GI Narrative: Tenderness palpation over right upper quadrant some mild guarding. There is no rebound, rigidity, or peritoneal signs Back/Spine no CVA tenderness and no thoracic nor lumbar tenderness Extremity normal to inspection General Extremety ED: Negative for edema General Extremity: Negative for edema Neuro oriented x3, CN's II-XII intact bilaterally, no sensory deficits noted and gait normal Sensorium / Orientation: awake, alert, oriented to person, oriented to place andoriented to time Motor Exam: strength 5/5 throughout and strength abnormal Psych mental status grossly normal Skin no rashes or lesions noted and no wounds MDM MDM MDM Narrative Medical decision making narrative: Patient presents to the emergency department with abdominal pain and inability to eat. Tenderness to the right upper quadrant and right flank. IV line established. CBC with differential obtained showed a white count of 9.4 with hemoglobin 13.6 and platelet count of 352. Chemistries unremarkable. LFTs wereabnormal with total bilirubin of 5.65, AST 507, ALT 1069, alk phos 886. Lipase normal at 12. Urinalysis negative for infection. CT scan of the abdomen pelvisshowed dilated bile ducts and pancreatic head mass. Patient also noted to have some small gallstones. Gallbladder ultrasound ordered andpending. Discussed results with general surgeon on-call Dr. Wilks who recommended we discussed withGI as he did not think there was any need for emergent surgical intervention. Spoke with Dr. Wallace who will see patient in consultation. Discussed with hospitalist to evaluate patient for admission for abdominal pain with biliary obstruction secondary to pancreatic head mass. Lab Data Attestation: I reviewed the patient's lab results. Labs: Laboratory Results - last 24 hr 06/13/25 06/13/25 13:42 13:54 WBC 9.4 RBC 4.82 Hgb 13.6 Hct 40.6 MCV 84.2 MCH 28.2 MCHC 33.5 RDW Std Deviation 49.0 H RDW Coeff of Morelia 16.0 H Plt Count 352 MPV 12.1 H Immature Gran % (Auto) 0.300 Neut % (Auto) 60.7 Lymph % (Auto) 27.7 Major % (Auto) 8.7 Eos % (Auto) 1.8 Baso % (Auto) 0.8 Absolute Neuts (auto) 5.7 Absolute Lymphs (auto) 2.61 Nucleated RBC % 0 Sodium 139 Potassium 4.2 Chloride 104 Carbon Dioxide 20.7 L Anion Gap 14 BUN 20 H Creatinine 1.01 Estim Creat Clear Calc 62.84 Est GFR (MDRD) Non-Af 65 BUN/Creatinine Ratio 19.8 Glucose 99 Calcium 10.0 Total Bilirubin 5.65 H AST 507 H ALT 1069 H Alkaline Phosphatase 886 H Total Protein 7.3 Albumin 4.0 Globulin 3.3 Albumin/Globulin Ratio 1.2 Lipase 12 L Urine Color Lynn Urine Clarity Clear Urine pH 5.0 Ur Specific [place] 1.020 Urine Protein 100 H Urine Glucose (UA) Normal Urine Ketones 15 H Urine Occult Blood 25 H Urine Nitrite Negative Urine Bilirubin 6 H Urine Urobilinogen 4 H Ur Leukocyte Esterase 500 H Urine RBC 0-5 SEEN Urine WBC 10-25 SEEN Ur Squamous Epith Cells 5-10 SEEN Amorphous Sediment 3+ URATE Urine Bacteria 0 SEEN Urine Mucus 0 SEEN Radiography Diagnostic Testing: Clinical Impression(s) from Imaging Studies Abdomen/Pelvis CT 06/13/25 15:40 IMPRESSION: Dilated intrahepatic biliary ducts in the common bile duct down to the head of the pancreas were I suspect a 14 mm mass in the head of the pancreas. Findings suggestive of small gallstones. Reading Location: [facility] Discharge Plan Triage Chief Complaint: Abd Pain ED Provider: Debi Eckert Dx/Rx/DC Orders Clinical Impression: Abdominal pain, Biliary obstruction, Mass of head of pancreas Prescriptions: No Action tramadol 50 mg tablet 50 - 100 mg PO Q6H PRN PRN (Reason: pain) diclofenac sodium 75 mg tablet,delayed release (DR/EC) 75 mg PO BID cholecalciferol (vitamin D3) [Vitamin D3] 25 mcg (1,000 unit) capsule 25 mcg PO DAILY turmeric 400 mg capsule 1,000 mg PO DAILY melatonin 3 mg capsule 3 mg PO QHS loratadine 10 mg capsule 10 mg PO DAILY sumatriptan succinate 50 mg tablet 50 mg PO PRN PRN (Reason: migraine headache) aspirin 81 mg capsule 81 mg PO BID Primary Care Provider: Joshua Whitlock Referrals: Joshua Whitlock MD [Primary Care Provider] - Print Language: [place] Verdean Disposition Disposition: Acute Care Hospital [facility] What to do if you have Problems For any increased pain, shortness of breath, bleeding, nausea or vomiting, chestpain, or any unexpected problems, contact your Primary Care Provider. Call [facility] ([phone]) or report tothe closest Emergency Room. Call 911 if necessary. 06/13/25 3092 Cosigner Signature (if applicable): CC: Dr. Joshua Whitlock MD ~ Signed [facility]09-10-2025 History and physical note [facility] Medical Records Department [address] [place] [address] H&P Exam - Hospitalist 06/13/25 1655 MR#: [id number] Acct: [id number] Name: CORIE LUGO Rep #:[id number] : 1970 54 From: Maynor patel DO PCP: Dr. Joshua Whitlock MD Status:ADM IN [place] [facility] [id number] HPI - General General Date of Admission: 06/13/25 Date of Service: 06/13/25 Chief Complaint: Abdominal pain with jaundice HPI Narrative CORIE LUGO, is a 54 F who presented to [facility] ED on 06/13/2025 with abdominalpain and jaundice. Patient has minimal past medical history significant for only current everyday smoker and class I obesity. She started to have upper abdominal/epigastric pain about 3 months ago. She has significant pain and discomfort with eating and has had very poor p.o. intake over that time and has lost approximately 30 pounds. Over the past several daysshe has noticed that her urine has become more dark. She was scheduled to see Dr. Wallace in the office for consultation this coming Wednesday, but given her ongoing symptoms she decided to come into the ED for further evaluation. Labs notable for total bilirubin 5.65, AST 507, ALT 1069, alk phos 886. CT abdomen pelvis showed dilated intrahepatic biliary ducts in the common bile duct down tothe head of the pancreas with a suspected 14 mm mass in the head of the pancreas; was also noted to have small gallstones. Right upper quadrant ult rasound showed normal gallbladder, moderate intrahepatic biliary dilatation, normal gallbladder, noother concerning findings. Case was discussed with Dr. Wilks who noted no surgical needs at this time. Case was then discussed with Dr. Wallace who was agreeable to admitting the patient with plan [facility] for further evaluation. Hospitalist was then contacted for admission. I saw the patient at bedside in the ED, was present. Patient was mildly fatigued appearing but otherwise sitting back fairly comfortably in her chair, conversingnormally and in no acute distress. Denied any significant abdominal pain or discomfort currently. Denies any fevers or chills. No other acute concerns at this time. Will be admitted for further management. [facility] Medical History Post-menopausal Wears glasses Anxiety Arthritis Easy bruising Migraine headache Shortness of breath on exertion Smoker History of edema History of pain when walking Home Medications ?Medication ?Instructions ?Recorded ?Last Taken ?Type cholecalciferol (vitamin D3) 25 25 mcg PO DAILY 09/24/24 History mcg (1,000 unit) capsule (Vitamin D3) diclofenac sodium 75 mg 75 mg PO BID 08/29/24 History tablet,delayed release loratadine 10 mg capsule 10 mg PO DAILY 08/29/2409/03 History melatonin 3 mg capsule 3 mg PO QHS 08/29/24 Unknown History sumatriptan succinate 50 mg tablet 50 mg PO PRN PRN mi graine headache 08/29/24 Unknown History omeprazole 20 mg capsule,delayed 20 mg PO DAILY Unknown History release sucralfate 1 gram tablet 1 g PO 4X/DAY 06/13/25 Unkno wn History Allergy/AdvReac Type Severity Reaction Status Date / Time No Known Allergies Allergy Verified 09/25/24 06:02 Surgical History Hx of total knee arthroplasty Hx of arthroscopic knee surgery History of endometrial ablation History of ankle surgery History of carpal tunnel surgery of right wrist Hx of foot surgery Hx of tubal ligation Social History Smoking Status: Current every day smoker tobacco type: cigarettes ROS Constitutional Constitutional: Reports anorexia and change in weight; Denies chills, fatigue, fever(s) or weakness Cardiovascular Cardiovascular: Denies chest pain Respiratory/Chest Respiratory/Chest: Denies shortness of breath at rest Gastrointestinal Gastrointestinal: Reports abdominal pain and nausea; Denies constipation, diarrhea or vomiting Genitourinary Genitourinary: Denies dysuria Musculoskeletal Musculoskeletal: Denies arthralgias or myalgias Vital Signs Vital Signs Vital Signs: 06/13/25 13:36 Temperature 97.6 F L Temperature Source Temporal Pulse Rate 79 Respiratory Rate 16 Blood Pressure 123/77 H Blood Pressure Mean 92 Pulse Ox 98 Oxygen Delivery Method Room Air Weight Weight: 84.867 kg Body Mass Index (BMI) 34.2 Physical Exam Const alert, oriented x3 and no apparent distress Constitutional Narrative: Middle-aged female, class I obesity, mildly fatigued appearing but otherwise sitting back comfortably in bedside chair, conversing normally, in no acute distress. General Appearance: cooperative and comfortable HEENT normocephalic, head/scalp atraumatic, hearing grossly normal bilaterally, nasal mucous membranes and turbinates normal and moist oral mucous membranes Eyes PERRL, EOMs intact bilaterally and conjunctivae normal Neck full ROM Chest inspection of chest normal Resp normal respiratory effort, normal air movement, no use of accessory muscles and clear to auscultation bilaterally Cardio regular rate, regular rhythm, no murmurs and peripheral pulses 2+ throughout GI normal to inspection, nondistended, normoactive bowel sounds, soft to palpation,non-tender and non-distended Back/Spine normal ROM Extremity normal to inspection, full ROM and no pedal edema Skin Skin Narrative: Mild jaundice noted. Psych mental status grossly normal Results Lab / Micro Data 06/13/25 13:42 06/13/25 13:42 Labs: Laboratory Results - last 24 hr 06/13/25 13:42: WBC 9.4, RBC 4.82, Hgb 13.6, Hct 40.6, MCV 84.2, MCH 28.2, MCHC 33.5, RDW Std Deviation 49.0 H, RDW Coeff of [place] 16.0 H, Plt Count 352, MPV 12.1H, Immature Gran % (Auto) 0.300, Neut %(Auto) 60.7, Lymph % (Auto) 27.7, Major %(Auto) 8.7, Eos % (Auto) 1.8, Baso % (Auto) 0.8, Absolute Neuts (auto) 5.7, Absolute Lymphs (auto) 2.61, Nucleated RBC % 0, Sodium 139, Potassium 4.2, [id number], Carbon Dioxide 20.7 L, Anion Gap 14, BUN 20 H, Creatinine 1.01, Estim Creat Clear Calc 62.84, Est GFR (MDRD) Non-Af 65, BUN/Creatinine Ratio 19.8, Glucose 99, Calcium 10.0, Total Bilirubin 5.65 H, AST 507 H, ALT 1069 H, Alkaline Phosphatase 886 H, Total Protein 7.3, Albumin 4.0, Globulin 3.3, A lbumin/Globulin Ratio 1.2, Lipase 12 L 06/13/25 13:54: Urine Color [place], Urine Clarity Clear, Urine pH 5.0, Ur Specific [place] 1.020, Urine Protein 100 H, Urine Glucose (UA) Normal, Urine Ketones 15 H, Urine Occult Blood 25 H, Urine Nitrite Negative, Urine Bilirubin 6H, Urine Urobilinogen 4 H, Ur Leukocyte Esterase 500 H, Urine RBC 0-5 SEEN, Urine WBC 10-25 SEEN, Ur Squamous Epith Cells 5-10 SEEN, Amorphous Sediment 3+ URATE, Urine Bacteria 0 SEEN, Urine Mucus 0 SEEN Imaging Radiology Impression Abdomen/Pelvis CT 06/13/25 15:40 IMPRESSION: Dilated intrahepatic biliary ducts in the common bile duct down to the head of the pancreas were I suspect a 14 mm mass in the head of the pancreas. Findings suggestive of small gallstones. Reading Location: [id number] Assessment & Plan Assessment/Plan (1) Abdominal pain: (2) Biliary obstruction: (3) Mass of head of pancreas: PLAN: Plan Patient is a 54-year-old female who presented to [facility] ED on 06/13/2025 with abdominal pain and jaundice. 1. Abdominal pain with pancreatic head mass, biliary ductal dilation and elevated transaminases ? Admit under inpatient status to [facility]. GI consulted. Highest concern is for new diagnosis of pancreatic cancer with obstructive jaundice. CT abdomen pelvis showed dilated intrahepatic biliary ducts in the common bile duct down tothe head of the pancreas with a suspected 14 mm mass in the head of the pancreas. LFTs with total bilirubin 5.65, AST 507, ALT 1069, alk phos 886. Will keep n.p.o. atmidnight with plan for ERCP tomorrow. Pain control with oxycodone as needed and IV Dilaudid as needed. Trend daily LFTs. Chronic medical conditions: ? Class I obesity: BMI 34 on admit. Complicates hospital course and care. ? Tobacco dependence: Current everyday smoker. Nicotine replacement therapy available per patient request. Discussed cessation on discharge. ? GERD: Continue home PPI. ? Seasonal allergies: Continue home loratadine. DVT prophylaxis: Lovenox CODE STATUS: Full code, verified Expected disposition: Home, TBD Total clinical time spent by myself addressing the patient's medical issues, reviewing all the data, and collaborating with patient's care team: 57 minutes. Charges/Coding Visit Charges Inpatient E&M: 02775 Init Hosp L2 06/13/252207 Cosigner Signature (if applicable): CC: Dr. Maynor Blanton DO; Dr. Joshua Whitlock MD~ Signed [facility]09-10-2025 Evaluation note* Diagnosis Onset Date Resolution Status Admit Date Abdominal pain acute June 13, 2025 4:58pm Biliary obstruction acute June 2024 4:58pm Hyperbilirubinemia acute 2024 4:58pm Jaundice acute June 4:58pm Mass of head of pancreas acute June 13, 2025 4:58pm Transaminitis acute June 042024 4:58pm [facility] Work Phone: 1(839) 436-426109-10-2025 Radiology Diagnostic study note [facility] Imaging Services [address] [place], [place] [id number] Gallbladder MR#: [id number] Acct: [id number] Name: CORIE LUGO DONOVAN Rep #: [id number] : 1970 F 54 From: Sary Yeager MD PCP: Dr. Joshua Whitlock MD Status: ADM IN Study:Gallbladder Date of Exam: 06/13/25 Exam# [id number] Ordering Dr: Robyn Eckert DO PROCEDURE: GALLBLADDER [...] intrahepatic biliary ducts. Normal gallbladder. Reading Location: RAD-KEYA-NL CC: Dr. Debi Eckert DO; Dr. Joshua Whitlock MD ~ Cargo Service Supervisor: Signed [facility]09-10-2025 Radiology Diagnostic study note [facility] Imaging Services [address] [place] [address] Abdomen/Pelvis W IV Cont ONLY MR#: [id number] Acct: [id number] Name: CORIE LUGO Rep #: [id number] : 1970 F 54 From: Hi Somers MD PCP: Dr. Joshua Whitlock MD Status: REG ER Study:Abdomen/Pelvis W IV Cont ONLY Date of E xam: 06/13/25 Exam# [id number] Ordering Dr: Robyn Eckert DO PROCEDURE: ABDOMEN/PELVIS [...] cyst in the medial aspect of the leftlobe of the liver. Gallbladder: I suspect small gallstones. The gallbladder is slightly distended. There is dilatationof the common bile duct measuring 14 mm. [...] Findings suggestive of small gallstones. Reading Location: [id number] CC: Dr. Debi Eckert DO; Dr. Joshua Whitlock MD ~ Cargo Service Supervisor: Signed [facility]12-13-2024 [facility] Medical Records Department [address] [place] [address] History Physical Exam 09/15/24 1125 MR#: [id number] Acct: [id number] Name: CORIE LUGO Rep #: [id number] : 1970 54 From: Mal DOCKERY PA-C PCP: Dr. Joshua Whitlock MD Status:[facility] Location: [place] [address] History and Physical History and Physical Patient [...] of right total knee arthroplasty by Dr. Itzel Ortega on November 10, 2023.??? She is [...] Patient will be undergoing a trip to [facility] starting tomorrow and she has begun [...] Surgical Hx: Tubal Ligation - (1989) @ [facility] Foot Surgery Ligiment - (2007) KARAN??? @ [facility] Carpal Tunnel Release RT - (1998) @ [facility] LT Ankle Ligement Repair - (09/22/2018) AEM @ [facility] Diagnostic Ablation - (2006) @ [facility] RT Knee, Arthro. Med. Lat. Meniscectomy, Chondroplasty MFC,LTP,PFJ - (06/25/2021) Dr Jesús Ortega @ [facility] RT Knee, Total Joint Replacement - (11/10/2023) MSK @ [facility] Anesthesia Complications: Vomiting - intense [...] 1-2 tablet by mo (more content not included)...[facility] Evaluation noteNo assessment information availableWSouthwest General Health Center Work Phone: Evaluation note* Diagnosis Pancreatic mass Unspecified disease of [facility] Discharge instructionsAdditional Instructions 1. Please call Dr. Wallace's office with worsening abdominal pain, increased nausea and vomiting or increased jaundice 2. Please complete antibiotics as noted below. Do not utilize alcohol while taking metronidazole. Date of Discharge: 06/15/25WSouth[facility] Center Work Phone: Hospital Discharge instructionsAdditional Instructions Please follow-up at your GI appointment as planned tomorrow. I sent a prescription for Percocet if needed tomorrow if your tramadol does not work for your pain tonight. If you develop any new or worsening symptoms please return to the ED immediately including any worsening pain, nausea, vomiting, fevers. Your evaluation in the Emergency Department did not reveal any acute reason for admission. However, I want to emphasize that you may be early in the course of a disease process or illness even if it is not present. For this reason you should follow-up within 24 hours for reevaluation with either your primary care physician or if necessary back here in the Emergency Department. You should return to the Emergency Department immediately if your symptoms worsen or new symptoms develop.[facility] Work Phone: Hospital Discharge instructions* Attachments The following attachments cannot be sent through Care Everywhere. * Endoscopic Ultrasound ([place]) * Upper GI Endoscopy Discharge Instructions ([place]) [facility] (narrative)No reason for referral information availableWSouthwest General Health Center Work Phone: Reason for visit Narrative* Auth/Cert (Routine) Specialty Diagnoses / Procedures Referred By Rickey t Referred To Contact Diagnoses Pancreatic mass Procedures MD ESOPHAGOSCOPY FLEXIBLE TRANSORAL ULTRASOUND EXAM ESOPHAGOSCOPIC ULTRASOUND EXAM Preston Armas MD [address] [place] [address] Phone: tel: fax: [facility] Endoscopy [address] [place] [address] Phone: tel: Referral ID Status Reason Start Date Expiration Date Visits Re quested Visits Authorized [id number] 1 [facility] Summary Purpose Family History No Family History Records Found Breast Cancer Status:Active Comments:Paterna l Aunt. Cerebrovascular [...] Hypothyroidism Status:Active Comments:Mother. Prostate Cancer Status:Active Comments:Father. Relationship Condition Age at Onset Recorded Date/T vaishnavi mother Arthritis Unknown Disorder of thyroid Unknown father Malignant neoplasm Unknown grandfather Malignant neoplasm Unknown Cerebrovascular accident (CVA) Unknown Advance Directives No Advanced Directives Records Found Advance Directive Response Recorded Date/ Time Do you have a Healthcare Power of Pants Presser Automatic? No June 13, 2025 3:39pm Advance Directive Response Recorded Date/ Time Do you have a Healthcare Power of Pants Presser Automatic? No June 13, 2025 6:29pm Advance Directive Response Recorded Date/ Time Do you have a Healthcare Power of Pants Presser Automatic? No June 13, 2025 6:29pm Do you have a Healthcare Power of Pants Presser Automatic? No June 18, 2025 4:26pm Date Activated Date Inactivated Comments 06/26/2025 10:04 AM 06/26/2025 2:28 PM Chief Complaint and Reason for Visit Chief Complaint OSTEOARTHRITIS RIGHT KNEE *CARYN PROTOCOL* PREOP Chief Complaint OSTEOARTHRITIS RIGHT KNEE *CARYN PROTOCOL* PREOP PRIMARY OATEOARTHRITIS, RIGHT KNEE Chief Complaint Admit Date PAINLESS JAUNDICE W/ PANCREATIC HEAD MAS S June 13, 2025 4:58pm Chief Complaint Admit Date ABDOMINAL PAIN W/ JAUNDICE & PANCREATIC HEAD MASS June 13, 2025 4:58pm ABDOMINAL PAIN W/ JAUNDICE & PANCREATIC HEAD MASS June 14, 2025 8:47am ABDOMINAL PAIN W/ JAUNDICE & PANCREATIC HEAD MASS June 14, 2025 4:50pm Reason for Visit Admit Date Abdominal pain June 13, 2025 4:58pm Biliary obstruction June 13, 2025 4:58pm Hyperbilirubinemia June 13, 2025 4:58pm Jaundice June 13, 2025 4:58pm Mass of head of pancreas June 13, 2025 4:58pm Transaminitis June 13, 2025 4:58pm Chief Complaint Admit Date ABDOMINAL PAIN W/ JAUNDICE & PANCREATIC HEAD MASS June 13, 2025 4:58pm ABDOMINAL PAIN W/ JAUNDICE & PANCREATIC HEAD MASS June 14, 2025 8:47am ABDOMINAL PAIN W/ JAUNDICE & PANCREATIC HEAD MASS June 14, 2025 4:50pm ABDOMINAL PAIN W/ JAUNDICE & PANCREATIC HEAD MASS June 15, 2025 12:14pm fatigue June 18, 2025 4:12pm Chief Complaint Admit Date ABDOMINAL PAIN W/ JAUNDICE & PANCREATIC HEAD MASS June 13, 2025 4:58pm ABDOMINAL PAIN W/ JAUNDICE & PANCREATIC HEAD MASS June 14, 2025 8:47am ABDOMINAL PAIN W/ JAUNDICE & PANCREATIC HEAD MASS June 14, 2025 4:50pm ABDOMINAL PAIN W/ JAUNDICE & PANCREATIC HEAD MASS June 15, 2025 12:14pm fatigue June 18, 2025 4:12pm HOSP FU Gastroesophageal reflux disease (GERD) June 19, 2025 12:40pm Additional Source Comments INFORMATION SOURCE (unrecogn ized section and content) DATE CREATED AUTHOR 02/18/2020 [facility] DATE CREATED AUTHOR AUTHOR'S ORGANIZ ATION 08/02/2024 [facility] DATE CREATED AUTHOR AUTHOR'S ORGANIZ ATION 06/28/2025 [facility] DATE CREATED AUTHOR AUTHOR'S ORGANIZ ATION 07/06/2025 [facility] DATE CREATED AUTHOR AUTHOR'S ORGANIZ ATION 07/08/2025 [facility] Care Teams (unrecognized sec tion and content) Team Status: Active Member Role Status Dates Dr. Joshua Whitlock MD Family Provider Active Dr. Joshua Whitlock MD Primary Care Provider Active Team Status: Active Member Role Status Dates Dr. Joshua Whitlock MD Primary Care Provider Active Dr. Nelson Pacheco MD Attending Provider Active Dr. Itzel Ortega DO Referring Provider Active Team Status: Inactive Member Role Status Dates Dr. Joshua Whitlock MD Primary Care Provider Active Dr. Itzel Ortega DO Attending Provider, Referring Provider Active Matheus DOCKERY PA-C Other Provider Active Team Status: Inactive Member Role Status Dates Dr. Joshua Whitlock MD Primary Care Provider Active Dr. Itzel Ortega DO Attending Provider, Referring Provider Active Team Status: Active Member Role/Relationship Status Dates Dr. Joshua Whitlock MD Primary Care Provider Active Team Status: Active Member Role/Relationship Status Dates Dr. Joshua Whitlock MD Primary Care Provider Active Start: June 13, 2025 Dr. Remus Ungur , DO Emergency Provider Active S tart: June 13, 2025 Dr. Maynor Blanton , DO Admit Provider Active Start: June 13, 2025 Dr. Maynor Blanton , DO Attending Provider Active Start: June 13, 2025 Team Status: Inactive Member Role/Relationship Status Dates Dr. Joshua Whitlock MD Primary Care Provider Active Start: June 13, 2025 End: June 15, 2025 Dr. Debi Eckert , DO Emergency Provider Active S tart: June 13, 2025 End: June 15, 2025 Dr. Maynor Blanton , DO Admit Provider Active Start: June 13, 2025 End: June 15, 2025 Dr. Maynor Blanton , DO Other Provider Active Start: June 13, 2025 End: June 15, 2025 Dr. Killian Wallace , DO Other Provider Active St art: June 13, 2025 End: June 15, 2025 Dr. Tika Casey , DO Attending Provider Active S tart: June 13, 2025 End: June 15, 2025 Team Status: Active Member Role/Relationship Status Dates Dr. Joshua Whitlock MD Primary Care Provider Active Start: June 14, 2025 Dr. Debi Eckert , DO Emergency Provider Active S tart: June 14, 2025 Dr. Maynor Blanton , DO Admit Provider Active Start: June 14, 2025 Dr. Maynor Blanton , DO Other Provider Active Start: June 14, 2025 Dr. Killian Wallace , DO Other Provider Active St art: June 14, 2025 Dr. Tika Casey , DO Attending Provider Active S tart: June 14, 2025 Dr. Tika Casey , DO Other Provider Active Start : June 14, 2025 Team Status: Active Member Role/Relationship Status Dates Dr. Joshua Whitlock MD Primary Care Provider Active Start: June 14, 2025 Dr. Debi Eckert , DO Emergency Provider Active S tart: June 14, 2025 Dr. Maynor Blanton , DO Admit Provider Active Start: June 14, 2025 Dr. Maynor Blanton , DO Other Provider Active Start: June 14, 2025 Dr. Killian Wallace , DO Attending Provider Active Start: June 14, 2025 Dr. Killian Wallace , DO Other Provider Active St art: June 14, 2025 Dr. Tika Casey , DO Other Provider Active Start : June 14, 2025 Team Status: Active Member Role/Relationship Status Dates Dr. Joshua Whitlock MD Primary Care Provider Active Start: June 15, 2025 Dr. Debi Eckert , DO Emergency Provider Active S tart: June 15, 2025 Dr. Maynor Blanton , DO Admit Provider Active Start: June 15, 2025 Dr. Maynor Blanton , DO Other Provider Active Start: June 15, 2025 Dr. Killian Wallace , DO Other Provider Active St art: June 15, 2025 Dr. Tika Casey , DO Attending Provider Active S tart: June 15, 2025 Dr. Tika Casey , DO Other Provider Active Start : June 15, 2025 Team Status: Inactive Member Role/Relationship Status Dates Dr. Joshua Whitlock MD Primary Care Provider Active Start: June 18, 2025 End: June 18, 2025 Dr. Bertha Silva MD Emergency Provider Active S tart: June 18, 2025 End: June 18, 2025 Team Status: Inactive Member Role/Relationship Status Dates Dr. Joshua Whitlock MD Primary Care Provider Active Start: June 19, 2025 End: June 19, 2025 Dr. Joshua Whitlock MD Referring Provider Active S tart: June 19, 2025 End: June 19, 2025 SARKIS Marinelli Attending Provider Active Start: June 19, 2025 End: June 19, 2025 Wet Washer Machine Relationship Specialty Start Date End Date Bev Stoner MD [address] [place] [address] PCP - General Hematology and Oncology 06/26/25 Goals (unrecognized section and content) Goals may be documented in a n alternate sectionGoals may be documented in an alternate sectionGoals may be documented in an alternate section Scheduled Active and Recently Administ ered Medications (unrecognized section and content) Medication Order 06/24/2025 06/25/2025 06/26/2025 HYDROmorphone (Dilaudid) injection 0.5 mg (COMPLETED) 0.5 mg, IntraVENous, Once, On Wed06/26/25 at 1115, For 1 dose, Recovery (only), If oral and injectable narcotics ordered, use oral first and only use injectable if oral is ineffective or cannot take oral. Do Not give oral and injectable within 1 hour of each other unless specifically ordered. 1108 (Given - Provid er: Lisa Raines RN) sodium chloride 0.9 % bolus 500 mL 500 mL, IntraVENous, at 500 mL/hr, Administer over 1 Hours, Once, On Wed06/26/25 at 1130, For 1 dose, Recovery (only) 1130 (Canceled Entry - Provider: Automatic Discharge Provider - Comment: Automatically canceled at discontinue of medication order) sodium chloride 0.9% (NS) flush 10 mL 10 mL, IntraVENous, Every 12 hours scheduled (2 times per day), First dose on Wed06/26/25 at 1015 1015 (Canceled Entry - Provider: Automatic Discharge Provider - Comment: Automatically canceled at discontinue of medication order) sodium chloride 0.9% (NS) flush 10 mL 10 mL, IntraVENous, Every 12 hours scheduled (2 times per day), First dose on Wed06/26/25 at 1015, Preprocedure 1015 (Canceled Entry - Provider: Automatic Discharge Provider - Comment: Automatically canceled at discontinue of medication order) PRN Medication Order 06/24/2025 06/25/2025 06/26/2025 HYDROmorphone (Dilaudid) injection 0.5 mg 0.5 mg, IntraVENous, PRN, severe pain (7-10), moderate pain (4-6), Starting on Wed06/26/25 at 1126, Recovery (only), If oral and injectable narcotics ordered, use oral first and only use injectable if oral is ineffective or cannot take oral. Do Not give oral and injectable within 1 hour of each other unless specifically ordered. 1138 (Given - Provid er: Claudia Dunn RN) ondansetron (Zofran) injection 4 mg 4 mg, IntraVENous, Once PRN, nausea, vomiting, Starting on Wed06/26/25 at 1004, For 1 dose, Preprocedure sodium chloride 0.9 % infusion 5-250 mL/hr, IntraVENous, PRN, if patient receiving piggyback infusions and maintenance fluids are not ordered OR KVO fluids to protect IV site / prevent frequent line interruptions/ long duration, Starting on Wed06/26/25 at 1004, For piggyback infusion, administer at same rate as piggyback for a total of 25 mL. Enter 25 mL into dose field and piggyback rate into rate field of order. If piggyback is infusing at a rate less than 100 mL/hr, enter 25 mL into dose field and 100 mL/hr into rate field of order. For KVO fluids, enter rate of 20 mL/hr or less into rate field of order. sodium chloride 0.9 % infusion 5-250 mL/hr, IntraVENous, PRN, if patient receiving piggyback infusions and maintenance fluids are not ordered OR KVO fluids to protect IV site / prevent frequent line interruptions/ long duration, Starting on Wed06/26/25 at 1004, Preprocedure, For piggyback infusion, administer at same rate as piggyback for a total of 25 mL. Enter 25 mL into dose field and piggyback rate into rate field of order. If piggyback is infusing at a rate less than 100 mL/hr, enter 25 mL into dose field and 100 mL/hr into rate field of order. For KVO fluids, enter rate of 20 mL/hr or less into rate field of order. 1006 (New Bag - Prov ider: DAYSI Son CRNA)1037 (Stopped - Provider: DAYSI Son CRNA) sodium chloride 0.9% (NS) flush 10 mL 10 mL, IntraVENous, PRN, line care, Starting on Wed06/26/25 at 1004, After every IV line use sodium chloride 0.9% (NS) flush 10 mL 10 mL, IntraVENous, PRN, line care, Starting on Wed06/26/25 at 1004, Preprocedure, After every IV line use FOR RECORDS PERTAINING TO PATIENTS WHO ARE [...] BE BASED ON THE PRIMARY CLINICAL RECORDS. [facility]. provides no warranty or guarantee of the accuracy or completeness of information in this document.
--- OUTSIDE RECORDS SUMMARY | 2025-09-07 17:36 | XMS RPT_ITS | CCD ---
Author Organization [facility] CliniSynv Care Team Providers Care Criminology Teacher Name Role Phone DENNY DAVIS DO Admitting Unavailable DENNY DAVIS DO Attending Unavailable DENNY DAVIS DO Primary Care Unavailable JOSHUA WHITLOCK Consulting Unavailable JOSHUA WHITLOCK Referring Unavailable PROVIDER, UNKNOWN Consulting Unavailable PROVIDER, UNKNOWN Consulting Unavailable PROVIDER, UNKNOWN Consulting Unavailable Kwabena GALLEGOS, Joshua Allison Unavailable [facility], . . Unavailable Anuj CAICEDO, Dr. Renee Unavailable [facility], . [facility] office Unavailable Vincenzo GALLEGOS, Dr. Bullard ([facility]) A Unavail able [facility] Unavailable Angela MODESTO, Liliane Unavailable [...] Provider Dr. Nelson Pacheco Attending Provider Dr. Itzel Ortega Referring Provider Jai MORALESN, Jenna Unavailable Unavailabl e Miguel A SHIPPING INSPECTOR, Flakito Unavailable Unavailable Friend, Dr. Daily Unavailable [phone] Kwabena GALLEGOS, Dr. Lewis Primary Care Provider Ungsybil DO, Dr. Carrera Emergency Provider Harvinder DO, Dr. Mcguire Admit Provider Harvinder DO, Dr. Mcguire Attending Provider Harvinder DO, Dr. Mcguire Other Provider Friend DO, Dr. Daily Other Provider Jacinto HARVEY, Dr. Villela Attending Provider [phone] Jacinto DO, Dr. Villela Other Provider Friend DO, Dr. Daily Attending Provider Shira GALLEGOS, Dr. Stone Emergency Provider Unavailab dionne Whitlock MD, Dr. Lewis Referring Provider Alma Rosa Harris Attending Provider Manasa GALLEGOS, [facility] Primary Care Provider PRESTON ARMAS Admitting Unavailable PRESTON ARMAS Attending Unavailable MANASA NEW HAMPTONANATOLIY Primary Care Unavailable Friend, Killian Consulting Unavailable [facility], Joshua Primary Care Unavailable Mostspike [...] Unavailable Jacinto, Tika Referring Unavailable Alma Rosa Jones Attending Unavailable [...] Reaction(s) Facility (1 source) diphenhydrAMINE Drug Allergy [facility] Repository Medications Current Medications Medication Drug Class(es) [...] pancreas Other specified diseases of pancreas amylase 652494 unt / lipase 04854 unt / protease 587078 unt delayed release oral capsule (3 sources) Start: 06-19-2025 pancrelipase, Xnl-Wdls-Ezzf, (Creon) 48970-991175 units capsule delayed-release particles capsule Bzsmnt-Kqykylqa-Ycsqzyk (Creon) 36,000-114,000- 180,000 unit capsule,delayed release(DR/EC) Active 2 NMA PO TWICE A DAY 90 June 19, 2025 12:00am administer with meals and/or snacks 06/19/2025 Active Start: 06-19-2025 take 09515-527083 ca psules by mouth twice daily at mealtime Kdntwx-Qmmetptq-Ydkscda (Creon) 36,000-114,000- 180,000 unit capsule,delayed release(DR/EC) Active [...] sources) Nonsteroidal Anti-inflammatory Drug Start: 08-29-2024 diclofenac ([place] cele) 75 MG EC tablet Diclofenac Sodium [...] 30-Jun-2022 PHIL Mcleod Start: 30-Jun-2022 Estrogens, Conjugated (PENITENTIARY) / medroxyPROGESTERone (20 sources) Progestin, Estrogen Start: [...] (07/26/24) Surgeon: (Nate) and Location of procedure: ([facility]) Previous problems include a reaction to [...] (07/26/24) Surgeon: (Nate) and Location of procedure: ([facility]) Previous problems include a reaction to [...] Menopause: Has been gaining weight. reviewed by [facility] 12-24-2020 Unclassified (20 sources) Skin lesion [...] welts on her upper chest. reviewed by [facility] 12-20-2020 Unclassified (20 sources) Follow up consultation - The patient is here to follow-up after Emergency Room/Urgent Care ([facility] with laceration to the distal volar right [...] but never completely cleared up. reviewed by [facility] 01-15-2016 Unclassified (20 sources) Cold Symptoms [...] Surgeon: (Harinder Rodgers) and Location of procedure: ([facility]) There have been no problems with general anesthesia or blood/blood products. Prosthetics include eye glasses. Note for Pre-operative clearance: reviewed by [facility] 03-15-2015 Unclassified (20 sources) Eye Symptoms - The onset of the eye symptoms has been acute and has been occurring in an increasing pattern for months. The course has been gradually worsening. The eye symptoms are described as moderate and involve the left eye. The symptoms are described as pain and swelling. Note for Eye symptoms: reviewed by [facility] 12-11-2014 Unclassified (20 sources) Preoperative Clearance - Date of procedure: (08-10-13) Surgeon: (Dr Lawrence) and Location of procedure: ([facility]) There have been no problems with [...] Note for Upper respiratory infection: reviewed by [facility] 02-28-2013 Unclassified (20 sources) Cold Symptoms [...] Note for Upper respiratory infection: reviewed by [facility] 06-27-2012 Unclassified (20 sources) Cold Symptoms [...] Surgeon: (Dr Saenz) and Location of procedure: ([facility] There have been no problems with general [...] Range Facility OPERATIVE PROCEDURESon 07-06 OPERATIVE PROCEDURES [facility] OPERATIVE REPORT NAME ACCOUNT SEX AGE ADMIT DISCHARGE PT MED. RECORD# NUMBER DATE DATE TYPE MARY [id number] F 54 07/04/25 07/04/25 2 CORIE Velez [address] ROOM[facility] DATE OF : 1970 DICTATING PHYSICIAN: Itzel Borrego DATE OF SURGERY: July 04, 2025 SURGEON: Itzel Borrego MD MASSOTHERAPIST: Steve Javier CSA ANESTHESIOLOGIST: Richi Miller CRNA [...] Itzel Borrego MD 07/04/25 09:29 JOB #: [id number] Transcribed By: deloris 07/04/25 12:52 Electronically signed by: E-SIGN DR. BORREGO 07/06/25 11:54 Page 2 of 2 CORIE LUGO Operative Report Normal [facility] C-ARM USAGE 1 HOURon 025 C-ARM USAGE [address] ? [place] [id number] ? Patient: CORIE LUGO. Phone#: : 1970 Age: 54 Gender: F Pt. Type: Out Account: [id number] Location: 062 Ordering: ITZEL BORREGO Exam Date: 07/04/2025/8:17 Family Phys: JOSHUA WHITLOCK Charge Code: 445922 Physician: Cayey Order #: [id number] Dose#: 23.10 mGy PROCEDURE: C-ARM USEAGE 1 [...] Rutledge MD on 07/04/2025 at 9:34 Normal [facility] CHEST 1 VIEWon 07-04-2025 CHEST [address] ? [place], [place] [address] ? Patient: CORIE LUGO Phone#: : 1970 Age: 54 Gender: F Pt. Type: Out Account: [id number] Location: [facility] Ordering: ITZEL BORREGO Exam Date: 07/04/2025/9:23 Family Phys: JOSHUA WHITLOCK Charge Code: 232247 Physician: Cayey Order #: [id number] Dose#: PROCEDURE: X-RAY CHEST 1 VIEW COMPARISON: [facility], XR, CHEST 2 VIEWS, 09/07/2018, 9:31. INDICATIONS: [...] Rutledge MD on 07/04/2025 at 9:53 Normal [facility] Nursing Noteon 06-26-2025 Nursing Note Pt report her pain i s 10/13. Ambulated to rest room with independent steady gait. Claudia Dunn, SHANNAN Normal [facility] Gastroenterology Visit Repor ton 06-19-2025 Gastroenterology Visit Report [facility] Gastroenterology [address] [place] [address] OFFICE VISIT Date of Service: 06/19/25 MR#: [id number] Acct: [id number] Name: CORIE LUGO DONOVAN Rep #: [id number] : 1970 Provider: SARKIS Marinelli Age/Sex: 54/F Location[place] [facility] Status: Signed Intake Vital Signs 06/14/25 12:25 [...] cap PO QDAY 06/19/25 06/19/25 Hi story lbohxo-rhzuczag-yehztwf 2 cap PO BID #90 caps 06/19/25 [...] who presents to the office today for [facility] admission 06.13.25 through 06.15.25 with abdominal pain [...] swallowing o (more content not included)... Normal [facility] 12 Lead EKGon 06-18-2025 12 Lead EKG [facility] Cardiovascular Services [address] [place] [address] 12 Lead EKG 06/14/25 0556 MR#: [id number] Acct: [id number] Name: CORIE LUGO DONOVAN Rep #: [id number] : 1970 54 From: Itzel Perez MD Attending Dr: Status: DEP ER Ordering Dr: Bertha Silva MD Date: 06/18/25 Location: ED Sex: F [...] was found Confirmed by Itzel Perez ([id number]), editor & co founder ROSA WINTER ([id number]) on 06/19/2025 5:48:17 AM Referred By: Confirmed By: Itzel Perez 06/19/25 0548 Date Itzel Perez MD CC: Dr. Bertha Silva MD; Dr. Joshua Whitlock MD Signed [facility] Abdomen/Pelvis W IV Cont ONL Yon 06-18-2025 Abdomen/Pelvis W IV Cont ONLY [facility] Imaging Services [address] [place] [address] Abdomen/Pelvis W IV Cont ONLY MR#: [id number] Acct: [id number] Name: CORIE LUGO DONOVAN Rep #: [id number] : 1970 F 54 From: Henrry Watkins MD PCP: Dr. Joshua Whitlock MD Status: REG ER Study: Abdomen/Pelvis W IV Cont ONLY Date of Exam: Exam# [id number] Ordering Dr: Bertha Silva MD PROCEDURE: ABDOMEN/PELVIS [...] lymph node measures 8.5 mm. Reading Location: [facility] CC: Dr. Bertha Silva MD; Dr. Joshua Whitlock MD Smelter Charger: Signed Normal [facility] Absolute lymphocyte countOrd ered By: Bertha Silva on 06-18-2025 Lymphocytes Auto (Unsp spec) [#/Vol] 2.76 10*3/uL 0.83-4.51 [facility] Absolute neutrophil countOrd ered By: Bertha Walkerer on 06-18-2025 Neutrophils (Bld) [#/Vol] 7.1 10*3/uL 2.0-7.7 [facility] Anion gap in Serum or Plasma Ordered By: Bertha Silav on 06-18-2025 Anion gap [Moles/Vol] 12 mmol/L 02-15 [facility] Automated lymphocyte count a s percentage of total leukocytesOrdered By: Bertha Silva on 06-18-2025 Lymphocytes/100 WBC Auto (Unsp spec) 24.6 % - [facility] BUN/creatinine ratioOrdered By: Bertha Silva on 06-18-2025 Urea nitrogen/Creatinine [Mass ratio] 17.7 mg/mg - [facility] Basophil percentageOrdered B y: Bertha Silva on 06-18-2025 Basophils/100 WBC (Bld) 0.9 % 0-1 [facility] Bilirubin Test strip Ql (U)O rdered By: Bertha Silva on 06-18-2025 Bilirubin Ql (U) Negative Negative [facility] Bilirubin, totalOrdered By: Berthamian Silva on 06-18-2025 Bilirubin [Mass/Vol] 1.21 mg/dL 0.00-1.30 [facility] CBC W/Diff, Automatedon 06-04 Absolute Lymph 2.76 X10 3/uL Normal 0.83-4.51 [facility] Comment on above: Performed By: #### L 100.0100, L501.2450, L500.4050 #### [facility] [address] [place], [address] Absolute Neut 7.1 X10 3/uL Normal 2.0-7.7 [facility] Comment on above: Performed By: #### L 100.0100, L501.2450, L500.4050 #### [facility] [address] [place], [address] Basophils/100 WBC (Bld) 0.9 % Normal 0-1 [facility] Comment on above: Performed By: #### L 100.0100, L501.2450, L500.4050 #### [facility] [address] [place], [address] Eosinophils/100 WBC (Bld) 3.1 % Normal 0-5 [facility] Comment on above: Performed By: #### L 100.0100, L501.2450, L500.4050 #### [facility] [address] [place], [address] Erythrocyte distribution width (RBC) [Ratio] 15.7 % High 11.6-14.6 [facility] Comment on above: Performed By: #### L 100.0100, L501.2450, L500.4050 #### [facility] [address] [place], [address] Hematocrit (Bld) [Volume fraction] 39.9 % Normal 37-47 [facility] Comment on above: Performed By: #### L 100.0100, L501.2450, L500.4050 #### [facility] [address] [place], [address] Hemoglobin (Bld) [Mass/Vol] 13.1 g/dL Normal 12.0-15.0 [facility] Comment on above: Performed By: #### L 100.0100, L501.2450, L500.4050 #### [facility] [address] [place], [address] IG% 0.700 Normal 0.0-0.9 [facility] Comment on above: Result Comment: IG% - Immature Granulocytes (promyelocytes, myelocytes and metamyelocytes) > 1% indicates that a LEFT SHIFT is Present. Performed By: #### L 100.0100, L501.2450, L500.4050 #### [facility] [address] [place], [address] Lymphocytes/100 WBC (Bld) 24.6 % Normal 19-41 [facility] Comment on above: Performed By: #### L 100.0100, L501.2450, L500.4050 #### [facility] [address] [place], [address] MCH (RBC) [Entitic mass] 28.3 pg Normal 27.0-32.0 [facility] Comment on above: Performed By: #### L 100.0100, L501.2450, L500.4050 #### [facility] [address] [place], [address] MCHC (RBC) [Mass/Vol] 32.8 g/dL Normal 32-36 [facility] Comment on above: Performed By: #### L 100.0100, L501.2450, L500.4050 #### [facility] [address] [place], [address] MCV (RBC) [Entitic vol] 86.2 fL Normal 81-99 [facility] Comment on above: Performed By: #### L 100.0100, L501.2450, L500.4050 #### [facility] [address] [place], [address] Monocytes/100 WBC (Bld) 7.6 % Normal 0-10 [facility] Comment on above: Performed By: #### L 100.0100, L501.2450, L500.4050 #### [facility] [address] [place], [address] Neutrophils/100 WBC (Bld) 63.1 % Normal 47-70 [facility] Comment on above: Performed By: #### L 100.0100, L501.2450, L500.4050 #### [facility] [address] [place], [address] Nucleated RBC (Bld) [#/Vol] 0 10*3/uL Normal 0-5 [facility] Comment on above: Performed By: #### L 100.0100, L501.2450, L500.4050 #### [facility] [address] [place], [address] Platelet mean volume (Bld) [Entitic vol] 11.9 fL Normal 6.2-12.0 [facility] Comment on above: Performed By: #### L 100.0100, L501.2450, L500.4050 #### [facility] [address] [place], [address] Platelets (Bld) [#/Vol] 331 10*3/uL Normal 150-450 [facility] Comment on above: Performed By: #### L 100.0100, L501.2450, L500.4050 #### [facility] [address] [place], [address] RBC (Bld) [#/Vol] 4.63 10*6/uL Normal 4.2-5.4 [facility] Comment on above: Performed By: #### L 100.0100, L501.2450, L500.4050 #### [facility] [address] [place], [address] RDW SD 48.1 fl High 35.1-43.9 [facility] Comment on above: Performed By: #### L 100.0100, L501.2450, L500.4050 #### [facility] [address] [place], [address] WBC (Bld) [#/Vol] 11.2 10*3/uL High 4.4-11.0 [facility] Comment on above: Performed By: #### L 100.0100, L501.2450, L500.4050 #### [facility] [address] [place], [address] Carbon dioxide, total [Moles /volume] in Central venous bloodOrdered By: Bertha Silva on 06-18-2025 CO2 [Moles/Vol] 24.4 mmol/L 21.0-32.0 [facility] Chest PA and Lateralon 06-18 Chest PA and Lateral [facility] Imaging Services [address] [place], [place] [address] Chest PA and Lateral MR#: [id number] Acct: [id number] Name: CORIE LUGO Rep #: [id number] : 1970 F 54 From: Yovani Harris MD PCP: Dr. Joshua Whitlock MD Status: REG ER Study: Chest PA and Lateral Date of Exam: 06/18/25 Exam# [id number] Ordering Dr: Bertha Silva MD PROCEDURE: CHEST PA AND LATERAL 06/18/2025 REASON FOR EXAM: COUGH, RECENT HOSPITALIZATION TECHNIQUE: Procedure Code: RADCXR Modality: DX Procedure: CHEST PA AND LATERAL COMPARISON: 06/16/2021. FINDINGS: The heart is normal in size. The lungs are clear. No acute osseous abnormalities. RAD/Chest PA and Lateral IMPRESSION: NO ACUTE FINDINGS. Reading Location: [facility] CC: Dr. Bertha Silva MD; Dr. Joshua Whitlock MD Smelter Charger: Signed Normal [facility] Chloride assayOrdered By: Ross Silva on 06-18-2025 Chloride [Moles/Vol] 106 mmol/L 98-108 [facility] Comprehensive Metabolic Prof ilon 06-18-2025 Albumin [Mass/Vol] 4.0 g/dL Normal 3.5-5.0 [facility] Comment on above: Performed By: #### L 100.0100, L501.2450, L500.4050 #### [facility] [address] [place], [place], [address] Albumin/Globulin [Mass ratio] 1.4 {ratio} Normal 0.9-2.4 [facility] Comment on above: Performed By: #### L 100.0100, L501.2450, L500.4050 #### [facility] [address] [place], [address] ALK PHOS 492 U/L High 35-104 [facility] Comment on above: Performed By: #### L 100.0100, L501.2450, L500.4050 #### [facility] [address] [place], [address] ALT [Catalytic activity/Vol] 677 U/L High <=34 [facility] Comment on above: Performed By: #### L 100.0100, L501.2450, L500.4050 #### [facility] [address] [place], [address] AST [Catalytic activity/Vol] 108 U/L High <=31 [facility] Comment on above: Performed By: #### L 100.0100, L501.2450, L500.4050 #### [facility] [address] [place], [address] Bilirubin [Mass/Vol] 1.21 mg/dL Normal 0.00-1.30 [facility] Comment on above: Performed By: #### L 100.0100, L501.2450, L500.4050 #### [facility] [address] [place], [address] BUN/CRE 17.7 RATIO Normal 10-20 [facility] Comment on above: Performed By: #### L 100.0100, L501.2450, L500.4050 #### [facility] [address] [place], [address] Calcium [Mass/Vol] 9.3 mg/dL Normal 7.6-11.0 [facility] Comment on above: Performed By: #### L 100.0100, L501.2450, L500.4050 #### [facility] [address] [place], [address] Chloride [Moles/Vol] 106 mmol/L Normal 98-108 [facility] Comment on above: Performed By: #### L 100.0100, L501.2450, L500.4050 #### [facility] [address] [place], [address] CO2 [Moles/Vol] 24.4 mmol/L Normal 21.0-32.0 [facility] Comment on above: Performed By: #### L 100.0100, L501.2450, L500.4050 #### [facility] [address] [place], [address] Creatinine [Mass/Vol] 0.98 mg/dL Normal 0.70-1.20 [facility] Comment on above: Performed By: #### L 100.0100, L501.2450, L500.4050 #### [facility] [address] [place], [address] ECRCL 63.91 ml/min Normal 50-250 [facility] Comment on above: Performed By: #### L 100.0100, L501.2450, L500.4050 #### [facility] [address] [place], [address] GAP 12 Normal 5-15 [facility] Comment on above: Performed By: #### L 100.0100, L501.2450, L500.4050 #### [facility] [address] [place], [address] GFR/1.73 sq M.predicted among non-blacks MDRD (S/P/Bld) [Vol rate/Area] 68 mL/min/{1.73_m2} Normal >60 [facility] Comment on above: Result Comment: mL/m in/1.73m2 CKD-EPI Creatinine Equation (2020) Performed By: #### L 100.0100, L501.2450, L500.4050 #### [facility] [address] [place], [address] Globulin (S) [Mass/Vol] 2.8 g/dL Normal 2.2-4.2 [facility] Comment on above: Performed By: #### L 100.0100, L501.2450, L500.4050 #### [facility] [address] [place], [address] Glucose [Mass/Vol] 100 mg/dL High 70-99 [facility] Comment on above: Performed By: #### L 100.0100, L501.2450, L500.4050 #### [facility] [address] [place], [address] Potassium [Moles/Vol] 3.6 mmol/L Normal 3.3-5.1 [facility] Comment on above: Performed By: #### L 100.0100, L501.2450, L500.4050 #### [facility] [address] [place], [address] Sodium [Moles/Vol] 143 mmol/L Normal 133-145 [facility] Comment on above: Performed By: #### L 100.0100, L501.2450, L500.4050 #### [facility] [address] [place], [address] T PROT 6.8 g/dL Normal 5.9-8.4 [facility] Comment on above: Performed By: #### L 100.0100, L501.2450, L500.4050 #### [facility] [address] [place], [address] Urea nitrogen [Mass/Vol] 17 mg/dL Normal 4-19 [facility] Comment on above: Performed By: #### L 100.0100, L501.2450, L500.4050 #### [facility] [address] [place], [address] Emergency Department Summary on 06-18-2025 Emergency Department Summary [facility] Medical Records Department [address] [place] [address] Emergency Department Summary 06/18/25 MR#: [id number] Acct: [id number] Name: CORIE LUGO Rep #: [id number] : 1970 54 From: Bertha Silva MD [...] at home but did not take it. [facility] Medical History Post-menopausal Wears glasses Anxiety [...] stable. Pa (more content not included)... Normal [facility] Eosinophil percentageOrdered By: Bertha Silva on 06-18-2025 Eosinophils/100 WBC (Bld) 3.1 % 0-5 [facility] Erythrocyte distribution wid th ratioOrdered By: Bertha Silva on 06-18-2025 Erythrocyte distribution width (RBC) [Ratio] 15.7 % High 11.6-14.6 [facility] Erythrocyte distribution wid th standard deviationOrdered By: Bertha Silva on 06-18-2025 Erythrocyte distribution width (RBC) [Ratio] 48.1 fl High 35.1-43.9 [facility] Gallbladderon 06-18-2025 [facility]adder [facility] [address] [place], [place] [address] Gallbladder MR#: [id number] Acct: [id number] Name: CORIE LUGO DONOVAN Rep #: [id number] : 1970 F 54 From: Henrry Watkins MD PCP: Dr. Joshua Whitlock MD Status: REG ER Study: Gallbladder Date of Exam: 06/18/25 Exam# [id number] Ordering Dr: Bertha Silva MD PROCEDURE: GALLBLADDER [...] and pelvis were further details. Reading Location: [facility] CC: Dr. Bertha Silva MD; Dr. Joshua Whitlock MD Smelter Charger: Signed Normal [facility] Glomerular filtration rate ( GFR) estimation/1.73 sq m using serum, plasma, or whole bOrdered By: Bertha Silva on 06-18-2025 GFR/1.73 sq M.predicted among non-blacks MDRD (S/P/Bld) [Vol rate/Area] 68 mL/min/{1.73_m2} >60 [facility] Comment on above: mL/min/1.73m2 CKD-EP I Creatinine Equation (2020) Hematocrit Auto (Bld) [Volum e fraction]Ordered By: Bertha Silva on 06-18-2025 Hematocrit (Bld) [Volume fraction] 39.9 % 37-47 [facility] Hemoglobin measurementOrdere d By: Bertha Silva on 06-18-2025 Hemoglobin (Bld) [Mass/Vol] 13.1 g/dL 12.0-15.0 [facility] Immature granulocytes/100 WB C Auto (Bld)Ordered By: Bertha Silva on 06-18-2025 Immature granulocytes/100 WBC (Bld) 0.700 % 0.0-0.9 [facility] Comment on above: IG% - Immature Granu locytes (promyelocytes, myelocytes and metamyelocytes) > 1% indicates that a LEFT SHIFT is Present. Influenza virus A and B and SARS-CoV-2 (COVID-19) and Respiratory syncytial virus RNAOrdered By: Bertha Silva on 06-18-2025 SARS-CoV-2 (COVID-19) RNA ZION+probe Ql (Unsp spec) [facility] Ketones Test strip Ql (U)Ord ered By: Bertha Silva on 06-18-2025 Ketones Ql (U) 5 mg/dl High Negative [facility] - Chemistry and C hemistry - challengeOrdered By: Bertha Silva on 06-18-2025 AST [Catalytic activity/Vol] 108 U/L High <32 [facility] Lipaseon 06-18-2025 Lipase [Catalytic activity/Vol] 29 U/L Normal 13-75 [facility] Comment on above: Result Comment: Plea se note: LIPASE revised reference range effective 23. New Lipase methodology. Expected to produce lower values than the previous assay method. NEW Reference Range: 13 - 75 U/L Performed By: #### L 100.0100, L501.2450, L500.4050 #### [facility] [address] [place], [address] Lipase measurementOrdered By : Bertha Silva on 06-18-2025 Lipase [Catalytic activity/Vol] 29 U/L 13-75 [facility] Comment on above: Please note:LIPASE r evised reference range effective 23. New Lipase methodology. Expected to produce lower values than the previous assay method. NEW Reference Range: 13 - 75 U/L M100.678on 06-18-2025 M100.678 Pending SARS-CoV-2 (COVID 19) Negative INFLUENZA A Negative INFLUENZA B Negative RSV PCR Negative Normal [facility] Comment on above: Performed By: #### L 100.0100, M100.651 #### [facility] [address] [place], [address] MCV (mean corpuscular volume ) determinationOrdered By: Bertha Silva on 06-18-2025 MCV (RBC) [Entitic vol] 86.2 fL 81-99 [facility] Mean corpuscular hemoglobin (MCH) determinationOrdered By: Bertha Silva on 06-18-2025 MCH (RBC) [Entitic mass] 28.3 pg 27.0-32.0 [facility] Mean corpuscular hemoglobin concentration (MCHC) determinationOrdered By: Bertha Silva on 06-18-2025 MCHC (RBC) [Mass/Vol] 32.8 g/dL 32-36 [facility] Mean platelet volume determi nationOrdered By: Bertha Silva on 06-18-2025 Platelet mean volume (Bld) [Entitic vol] 11.9 fL 6.2-12.0 [facility] Microscopic analysis of urin e for red blood cells (RBC)Ordered By: Bertha Silva on 06-18-2025 Microscopic analysis of urine for red blood cells (RBC) 0-5 SEEN /hpf 0-5 [facility] Monocyte percentageOrdered B y: Bertha Silva on 06-18-2025 Monocytes/100 WBC (Bld) 7.6 % 0-10 [facility] Mucus LM Ql (Urine sed)Order ed By: Bertha Silva on 06-18-2025 Mucus Ql (Urine sed) 0 SEEN /hpf [facility] Neutrophil percentageOrdered By: Bertha Silva on 06-18-2025 Neutrophils/100 WBC (Bld) 63.1 % 47-70 [facility] Nitrite Test strip Ql (U)Ord ered By: Bertha Silva on 06-18-2025 Nitrite Ql (U) Negative Negative [facility] Nucleated red blood cell per centageOrdered By: Bertha Silva on 06-18-2025 Nucleated RBC/100 WBC (Bld) [Ratio] 0 % 0-5 [facility] Platelet countOrdered By: Ross Silva on 06-18-2025 Platelets (Bld) [#/Vol] 331 10*3/uL 150-450 [facility] Potassium measurement (mass/ volume)Ordered By: Bertha Silva on 06-18-2025 Potassium (Unsp spec) [Mass/Vol] 3.6 mmol/L 3.3-5.1 [facility] ,Urineon 06-18-2025 Beta HCG ( test) Ql (U) Negative Normal [facility] Comment on above: Result Comment: Very dilute urine specimens, as indicated by a low specific gravity, may not contain traffic representative levels of hCG. If is still suspected, a first morning urine specimen should be collected 48 hours later and tested. Performed By: #### L 100.0100, M100.651 #### [facility] [address] [place], [address] Protein Test strip Ql (U)Ord ered By: Bertha Silva on 06-18-2025 Protein Ql (U) 30 mg/dl High Negative [facility] RBC Auto (Bld) [#/Vol]Ordere d By: Bertha Silva on 06-18-2025 RBC (Bld) [#/Vol] 4.63 10*6/uL 4.2-5.4 [facility] Serum creatinine measurement (mass/volume)Ordered By: Bertha Silva on 06-18-2025 Creatinine [Mass/Vol] 0.98 mg/dL 0.70-1.20 [facility] Serum globulin measurementOr dered By: Bertha Silva on 06-18-2025 Globulin (S) [Mass/Vol] 2.8 g/dL 2.2-4.2 [facility] Serum glucose measurement (m ass/volume)Ordered By: Bertha Silva on 06-18-2025 Glucose [Mass/Vol] 100 mg/dL High 70-99 [facility] Serum or plasma alanine giles otransferase (ALT) measurementOrdered By: Bertha Silva on 06-18-2025 ALT [Catalytic activity/Vol] 677 U/L High <35 [facility] Serum or plasma albumin jen urement (mass/volume)Ordered By: Bertha Silva on 06-18-2025 Albumin [Mass/Vol] 4.0 g/dL 3.5-5.0 [facility] Serum or plasma albumin/glob ulin mass ratioOrdered By: Bertha Silva on 06-18-2025 Albumin/Globulin [Mass ratio] 1.4 {ratio} 0.9-2.4 [facility] Serum or plasma alkaline shagufta sphatase measurementOrdered By: Bertha Silva on 06-18-2025 ALP [Catalytic activity/Vol] 492 U/L High 35-104 [facility] Serum or plasma calcium jen urement (mass/volume)Ordered By: Bertha Silva on 06-18-2025 Calcium [Mass/Vol] 9.3 mg/dL 7.6-11.0 [facility] Serum or plasma urea nitroge n measurement (mass/volume)Ordered By: Bertha Silva on 06-18-2025 Urea nitrogen [Mass/Vol] 17 mg/dL 4-19 [facility] Sodium levelOrdered By: Joseph Silva on 06-18-2025 Sodium [Moles/Vol] 143 mmol/L 133-145 [facility] Squamous epithelial cells de tection in urine sediment by light microscopyOrdered By: Bertha Silva on 06-18-2025 Epithelial cells.squamous LM Ql (Urine sed) 0-5 SEEN /hpf 5-10 [facility] Total proteinOrdered By: Risa Silva on 06-18-2025 Protein [Mass/Vol] 6.8 g/dL 5.9-8.4 [facility] Urinalysis, Completeon 06-18 EPI,SQUAMOUS 0-5 SEEN Normal 5-10 [facility] Comment on above: Order Comment: CLEAN CATCH Performed By: #### L 100.0100, M100.651 #### [facility] [address] [place], [address] RBC 0-5 SEEN Normal 0-5 [facility] Comment on above: Order Comment: CLEAN CATCH Performed By: #### L 100.0100, M100.651 #### [facility] [address] [place], [address] WBC 0-5 SEEN Normal 0-5 [facility] Comment on above: Order Comment: CLEAN CATCH Performed By: #### L 100.0100, M100.651 #### [facility] [address] [place], [address] BACTERIA 0 SEEN Normal None Seen [facility] Comment on above: Order Comment: CLEAN CATCH Performed By: #### L 100.0100, M100.651 #### [facility] [address] [place], [address] Mucus Ql (Urine sed) 0 SEEN Normal [facility] Comment on above: Order Comment: CLEAN CATCH Performed By: #### L 100.0100, M100.651 #### [facility] [address] [place], [address] Urine clarityOrdered By: Risa Silva on 06-18-2025 Clarity (U) Sl. Cloudy Clear [facility] Urine color determinationOrd ered By: Bertha Silva on 06-18-2025 Color (U) Yellow Yellow [facility] Urine glucose detectionOrder ed By: Bertha Silva on 06-18-2025 Glucose Ql (U) Normal mg/dl Normal [facility] Urine leukocyte esterase det ection by dipstickOrdered By: Bertha Silva on 06-18-2025 Leukocyte esterase Test strip Ql (U) 25 /ul High Negative [facility] Urine pHOrdered By: Bertha reynaga on 06-18-2025 pH (U) 6.0 [pH] 5.0 - 8.0 [facility] Urine testOrdered By: Bertha Silva on 06-18-2025 HCG ( test) Ql (U) Negative [facility] Comment on above: Very dilute urine sp ecimens, as indicated by a low specificgravity, may not contain traffic representative levels of hCG. If is still suspected, a first morning urinespecimen should be collected 48 hours later and tested. Urine sediment bacteria coun t by microscopy (number/high power field)Ordered By: Bertha Silva on 06-18-2025 Bacteria LM.HPF (Urine sed) [#/Area] 0 /[HPF] None Seen [facility] Urine specific gravity measu rementOrdered By: Bertha Silva on 06-18-2025 Specific gravity (U) [Rel density] 1.020 1.002-1.03 0 [facility] Urine urobilinogen measureme ntOrdered By: Bertha Silva on 06-18-2025 Urobilinogen Ql (U) Normal mg/dl Normal [facility] White blood cell (WBC) count Ordered By: Bertha Silva on 06-18-2025 WBC (Bld) [#/Vol] 11.2 10*3/uL High 4.4-11.0 [facility] White blood cell countOrdere d By: Bertha Silva on 06-18-2025 White blood cell count 0-5 SEEN /hpf 0-5 [facility] AFP, Tumor Markeron 06-16-20 25 AFP TUMOR AIDEE 4.4 ng/mL Normal 0.0-9.2 [facility] Comment on above: Result Comment: [employer] Electrochemiluminescence Immunoassay (ECLIA) Values obtained with different assay methods or kits cannot be used interchangeably. Results cannot be interpreted as absolute evidence of the presence or absence of malignant disease. This test is not interpretable in females. Performed at: [address] [id number] Manager Unit: Víctor Chen PhD, Phone: [phone] Performed By: #### L 7170.3800 ####[facility] [address] [place], [address] Carbohydrate AG 19-9on 06-16 CA 19-9 37 U/mL High 0-35 [facility] Comment on above: Result Comment: [employer] Electrochemiluminescence Immunoassay (ECLIA) Values obtained with different assay methods or kits cannot be used interchangeably. Results cannot be interpreted as absolute evidence of the presence or absence of malignant disease. Performed at: [address] [id number] Manager Unit: Víctor Chen PhD, Phone: [phone] Performed By: #### L 3100.2300, L3100.5020 #### [facility] [address] [place], [address] Carcinoembryonic Antigenon 0 06-16-2025 CEA 8.0 ng/mL High 0.0-4.7 [facility] Comment on above: Result Comment: Nons mokers <3.9 Smokers <5.6 [facility] Electrochemiluminescence Immunoassay (ECLIA) Values obtained with different assay methods or kits cannot be used interchangeably. Results cannot be interpreted as absolute evidence of the presence or absence of malignant disease. Performed By: #### L 3100.2300, L3100.5020 #### [facility] [address] [place], [address] Anion gap in Serum or Plasma Ordered By: Tika Casey on 06-15-2025 Anion gap [Moles/Vol] 14 mmol/L 5-15 [facility] BUN/creatinine ratioOrdered By: Tika Casey on 06-15-2025 Urea nitrogen/Creatinine [Mass ratio] 21.7 mg/mg High 10-20 [facility] Bilirubin, totalOrdered By: Tika Casey on 06-15-2025 Bilirubin [Mass/Vol] 2.59 mg/dL High 0.00-1.30 [facility] CA 19-9 agOrdered By: Ami Casey on 06-15-2025 CA 19-9 ag 37 U/mL High 0-35 [facility] Comment on above: [facility] El ectrochemiluminescence Immunoassay(ECLIA)Values obtained with different assay methods or kits cannotbe used interchangeably. Results cannot be interpreted asabsolute evidence of the presence or absence of malignantdisease.Performed at: [facility] [id number] Director: Víctor Chen PhD, Phone: [phone] CBC-Complete Blood Cnt No Di ffon 06-15-2025 Erythrocyte distribution width (RBC) [Ratio] 15.6 % High 11.6-14.6 [facility] Comment on above: Performed By: #### L 100.0500, L501.2300, L501.5200, L500.4050 ####[facility] [address] [place], [address] Hematocrit (Bld) [Volume fraction] 36.0 % Low 37-47 [facility] Comment on above: Performed By: #### L 100.0500, L501.2300, L501.5200, L500.4050 ####[facility] [address] [place], [address] Hemoglobin (Bld) [Mass/Vol] 12.2 g/dL Normal 12.0-15.0 [facility] Comment on above: Performed By: #### L 100.0500, L501.2300, L501.5200, L500.4050 ####[facility] [address] [place], [address] MCH (RBC) [Entitic mass] 28.1 pg Normal 27.0-32.0 [facility] Comment on above: Performed By: #### L 100.0500, L501.2300, L501.5200, L500.4050 ####[facility] [address] [place], [address] MCHC (RBC) [Mass/Vol] 33.9 g/dL Normal 32-36 [facility] Comment on above: Performed By: #### L 100.0500, L501.2300, L501.5200, L500.4050 ####[facility] [address] [place], [address] MCV (RBC) [Entitic vol] 82.9 fL Normal 81-99 [facility] Comment on above: Performed By: #### L 100.0500, L501.2300, L501.5200, L500.4050 ####[facility] [address] [place], [address] Platelet mean volume (Bld) [Entitic vol] 11.9 fL Normal 6.2-12.0 [facility] Comment on above: Performed By: #### L 100.0500, L501.2300, L501.5200, L500.4050 ####[facility] [address] [place], [address] Platelets (Bld) [#/Vol] 307 10*3/uL Normal 150-450 [facility] Comment on above: Performed By: #### L 100.0500, L501.2300, L501.5200, L500.4050 ####[facility] [address] [place], [address] RBC (Bld) [#/Vol] 4.34 10*6/uL Normal 4.2-5.4 [facility] Comment on above: Performed By: #### L 100.0500, L501.2300, L501.5200, L500.4050 ####[facility] [address] [place], [address] RDW SD 47.0 fl High 35.1-43.9 [facility] Comment on above: Performed By: #### L 100.0500, L501.2300, L501.5200, L500.4050 ####[facility] [address] [place], [address] WBC (Bld) [#/Vol] 15.1 10*3/uL High 4.4-11.0 [facility] Comment on above: Performed By: #### L 100.0500, L501.2300, L501.5200, L500.4050 ####[facility] [address] [place], [address] Carbon dioxide, total [Moles /volume] in Central venous bloodOrdered By: Tika Casey on 06-15-2025 CO2 [Moles/Vol] 21.7 mmol/L 21.0-32.0 [facility] Chloride assayOrdered By: Kevin Casey on 06-15-2025 Chloride [Moles/Vol] 103 mmol/L 98-108 [facility] Comprehensive Metabolic Prof ilon 06-15-2025 Albumin [Mass/Vol] 3.6 g/dL Normal 3.5-5.0 [facility] Comment on above: Performed By: #### L 100.0500, L501.2300, L501.5200, L500.4050 ####[facility] [address] [place], [address] Albumin/Globulin [Mass ratio] 1.4 {ratio} Normal 0.9-2.4 [facility] Comment on above: Performed By: #### L 100.0500, L501.2300, L501.5200, L500.4050 ####[facility] [address] [place], [address] ALK PHOS 789 U/L High 35-104 [facility] Comment on above: Performed By: #### L 100.0500, L501.2300, L501.5200, L500.4050 ####[facility] [address] [place], [address] ALT [Catalytic activity/Vol] 968 U/L High <=34 [facility] Comment on above: Performed By: #### L 100.0500, L501.2300, L501.5200, L500.4050 ####[facility] [address] [place], [address] AST [Catalytic activity/Vol] 464 U/L High <=31 [facility] Comment on above: Performed By: #### L 100.0500, L501.2300, L501.5200, L500.4050 ####[facility] [address] [place], [address] Bilirubin [Mass/Vol] 2.59 mg/dL High 0.00-1.30 [facility] Comment on above: Performed By: #### L 100.0500, L501.2300, L501.5200, L500.4050 ####[facility] [address] [place], [address] BUN/CRE 21.7 RATIO High 10-20 [facility] Comment on above: Performed By: #### L 100.0500, L501.2300, L501.5200, L500.4050 ####[facility] [address] [place], [address] Calcium [Mass/Vol] 9.2 mg/dL Normal 7.6-11.0 [facility] Comment on above: Performed By: #### L 100.0500, L501.2300, L501.5200, L500.4050 ####[facility] [address] [place], [address] Chloride [Moles/Vol] 103 mmol/L Normal 98-108 [facility] Comment on above: Performed By: #### L 100.0500, L501.2300, L501.5200, L500.4050 ####[facility] [address] [place], [address] CO2 [Moles/Vol] 21.7 mmol/L Normal 21.0-32.0 [facility] Comment on above: Performed By: #### L 100.0500, L501.2300, L501.5200, L500.4050 ####[facility] [address] [place], [address] Creatinine [Mass/Vol] 0.78 mg/dL Normal 0.70-1.20 [facility] Comment on above: Performed By: #### L 100.0500, L501.2300, L501.5200, L500.4050 ####[facility] [address] [place], [address] ECRCL 81.39 ml/min Normal 50-250 [facility] Comment on above: Performed By: #### L 100.0500, L501.2300, L501.5200, L500.4050 ####[facility] [address] [place], [address] GAP 14 Normal 5-15 [facility] Comment on above: Performed By: #### L 100.0500, L501.2300, L501.5200, L500.4050 ####[facility] [address] [place], [address] GFR/1.73 sq M.predicted among non-blacks MDRD (S/P/Bld) [Vol rate/Area] 89 mL/min/{1.73_m2} Normal >60 [facility] Comment on above: Result Comment: mL/m in/1.73m2 CKD-EPI Creatinine Equation (2020) Performed By: #### L 100.0500, L501.2300, L501.5200, L500.4050 ####[facility] [address] [place], [address] Globulin (S) [Mass/Vol] 2.6 g/dL Normal 2.2-4.2 [facility] Comment on above: Performed By: #### L 100.0500, L501.2300, L501.5200, L500.4050 ####[facility] [address] [place], [address] Glucose [Mass/Vol] 121 mg/dL High 70-99 [facility] Comment on above: Performed By: #### L 100.0500, L501.2300, L501.5200, L500.4050 ####[facility] [address] [place], [address] Potassium [Moles/Vol] 4.2 mmol/L Normal 3.3-5.1 [facility] Comment on above: Performed By: #### L 100.0500, L501.2300, L501.5200, L500.4050 ####[facility] [address] [place], [address] Sodium [Moles/Vol] 139 mmol/L Normal 133-145 [facility] Comment on above: Performed By: #### L 100.0500, L501.2300, L501.5200, L500.4050 ####[facility] [address] [place], [address] T PROT 6.2 g/dL Normal 5.9-8.4 [facility] Comment on above: Performed By: #### L 100.0500, L501.2300, L501.5200, L500.4050 ####[facility] [address] [place], [address] Urea nitrogen [Mass/Vol] 17 mg/dL Normal 4-19 [facility] Comment on above: Performed By: #### L 100.0500, L501.2300, L501.5200, L500.4050 ####[facility] [address] [place], [place], [address] Erythrocyte distribution wid th ratioOrdered By: Tika Casey on 06-15-2025 Erythrocyte distribution width (RBC) [Ratio] 15.6 % High 11.6-14.6 [facility] Erythrocyte distribution wid th standard deviationOrdered By: Tika Casey on 06-15-2025 Erythrocyte distribution width (RBC) [Ratio] 47.0 fl High 35.1-43.9 [facility] Glomerular filtration rate ( GFR) estimation/1.73 sq m using serum, plasma, or whole bOrdered By: Tika Casey on 06-15-2025 GFR/1.73 sq M.predicted among non-blacks MDRD (S/P/Bld) [Vol rate/Area] 89 mL/min/{1.73_m2} >60 [facility] Comment on above: mL/min/1.73m2 CKD-EP I Creatinine Equation (2020) Hematocrit Auto (Bld) [Volum e fraction]Ordered By: Tika Casey on 06-15-2025 Hematocrit (Bld) [Volume fraction] 36.0 % Low 37-47 [facility] Hemoglobin measurementOrdere d By: Tika Casey on 06-15-2025 Hemoglobin (Bld) [Mass/Vol] 12.2 g/dL 12.0-15.0 [facility] - Chemistry and C hemistry - challengeOrdered By: Tika Casey on 06-15-2025 AST [Catalytic activity/Vol] 464 U/L High <32 [facility] MCV (mean corpuscular volume ) determinationOrdered By: Tika Casey on 06-15-2025 MCV (RBC) [Entitic vol] 82.9 fL 81-99 [facility] Magnesiumon 06-15-2025 Magnesium [Mass/Vol] 1.7 mg/dL Normal 1.5-2.2 [facility] Comment on above: Performed By: #### L 100.0500, L501.2300, L501.5200, L500.4050 ####[facility] [address] [place], [address] Magnesium measurement (mass/ volume)Ordered By: Tika Casey on 06-15-2025 Magnesium (Unsp spec) [Mass/Vol] 1.7 mg/dL 1.5-2.2 [facility] Mean corpuscular hemoglobin (MCH) determinationOrdered By: Tika Casey on 06-15-2025 MCH (RBC) [Entitic mass] 28.1 pg 27.0-32.0 [facility] Mean corpuscular hemoglobin concentration (MCHC) determinationOrdered By: Tika Casey on 06-15-2025 MCHC (RBC) [Mass/Vol] 33.9 g/dL 32-36 [facility] Mean platelet volume determi nationOrdered By: Tika Casey on 06-15-2025 Platelet mean volume (Bld) [Entitic vol] 11.9 fL 6.2-12.0 [facility] Phosphoruson 06-15-2025 Phosphate [Mass/Vol] 5.5 mg/dL High 2.7-4.5 [facility] Comment on above: Performed By: #### L 100.0500, L501.2300, L501.5200, L500.4050 ####[facility] [address] [place], [place], [address] Platelet countOrdered By: eKvin Casey on 06-15-2025 Platelets (Bld) [#/Vol] 307 10*3/uL 150-450 [facility] Potassium measurement (mass/ volume)Ordered By: Tika Casey on 06-15-2025 Potassium (Unsp spec) [Mass/Vol] 4.2 mmol/L 3.3-5.1 [facility] RBC Auto (Bld) [#/Vol]Ordere d By: Tika Casey on 06-15-2025 RBC (Bld) [#/Vol] 4.34 10*6/uL 4.2-5.4 [facility] Serum creatinine measurement (mass/volume)Ordered By: Tika Casey on 06-15-2025 Creatinine [Mass/Vol] 0.78 mg/dL 0.70-1.20 [facility] Serum globulin measurementOr dered By: Tika Casey on 06-15-2025 Globulin (S) [Mass/Vol] 2.6 g/dL 2.2-4.2 [facility] Serum glucose measurement (m ass/volume)Ordered By: Tika Casey on 06-15-2025 Glucose [Mass/Vol] 121 mg/dL High 70-99 [facility] Serum or plasma alanine giles otransferase (ALT) measurementOrdered By: Tika Casey on 06-15-2025 ALT [Catalytic activity/Vol] 968 U/L High <35 [facility] Serum or plasma albumin jen urement (mass/volume)Ordered By: Tika Casey on 06-15-2025 Albumin [Mass/Vol] 3.6 g/dL 3.5-5.0 [facility] Serum or plasma albumin/glob ulin mass ratioOrdered By: Tika Casey on 06-15-2025 Albumin/Globulin [Mass ratio] 1.4 {ratio} 0.9-2.4 [facility] Serum or plasma alkaline shagufta sphatase measurementOrdered By: Tika Casey on 06-15-2025 ALP [Catalytic activity/Vol] 789 U/L High 35-104 [facility] Serum or plasma calcium jen urement (mass/volume)Ordered By: Tika Casey on 06-15-2025 Calcium [Mass/Vol] 9.2 mg/dL 7.6-11.0 [facility] Serum or plasma carcinoembry onic antigen measurement (mass/volume)Ordered By: Tika Casey on 06-15-2025 Carcinoembryonic Ag [Mass/Vol] 8.0 ng/mL High 0.0-4.7 [facility] Comment on above: Nonsmokers <3.9 Smok ers <5.6[employer] Electrochemiluminescence Immunoassay(ECLIA)Values obtained with different assay methods or kitscannot be used interchangeably. Results cannot beinterpreted as absolute evidence of the presence orabsence of malignant disease. Serum or plasma urea nitroge n measurement (mass/volume)Ordered By: Tika Casey on 06-15-2025 Urea nitrogen [Mass/Vol] 17 mg/dL 4-19 [facility] Sodium levelOrdered By: Jen Casey on 06-15-2025 Sodium [Moles/Vol] 139 mmol/L 133-145 [facility] Total proteinOrdered By: Christelle Casey on 06-15-2025 Protein [Mass/Vol] 6.2 g/dL 5.9-8.4 [facility] White blood cell (WBC) count Ordered By: Tika Casey on 06-15-2025 WBC (Bld) [#/Vol] 15.1 10*3/uL High 4.4-11.0 [facility] 12 Lead EKGon 06-14-2025 12 Lead EKG [facility] [address] [place] [address] 12 Lead EKG 06/18/25 1715 MR#: [id number] Acct: [id number] Name: CORIE LUGO Rep #: [id number] : 1970 54 From: Itzel Perez MD Attending Dr: Dr. Tika Casey, DO Status: DIS I N Ordering Dr: Killian Wallace DO Date: 06/14/25 Location: [facility] Sex: F C Admitted: 06/13/25 Test Reason : P Blood Pressure : */* mmHG Vent. Rate : 56 BPM Atrial Rate : 56 BPM P-R Int : 132 ms QRS Dur : 80 ms QT Int : 424 ms P-R-T Axes : 34 13 24 degrees QTcB Int : 409 ms Sinus bradycardia Otherwise normal ECG Confirmed by Itzel Perez ([id number]), editor & co founder ROSA WINTER ([id number]) on 06/19/2025 12:00:40 PM Referred By: Confirmed By: Itzel Perez 09/16/25 1200 Date Itzel Perez MD CC: Dr. Tika Casey, DO; Dr. Joshua Whitlock MD; Killian Wallace, DO Signed Normal [facility] CBC-Complete Blood Cnt No Di ffon 06-14-2025 Erythrocyte distribution width (RBC) [Ratio] 15.8 % High 11.6-14.6 [facility] Comment on above: Performed By: #### L 100.0100, M100.651 #### [facility] [address] [place], [address] Hematocrit (Bld) [Volume fraction] 37.2 % Normal 37-47 [facility] Comment on above: Performed By: #### L 100.0100, M100.651 #### [facility] [address] [place], [address] Hemoglobin (Bld) [Mass/Vol] 12.8 g/dL Normal 12.0-15.0 [facility] Comment on above: Performed By: #### L 100.0100, M100.651 #### [facility] [address] [place], [address] MCH (RBC) [Entitic mass] 28.5 pg Normal 27.0-32.0 [facility] Comment on above: Performed By: #### L 100.0100, M100.651 #### [facility] [address] [place], [address] MCHC (RBC) [Mass/Vol] 34.4 g/dL Normal 32-36 [facility] Comment on above: Performed By: #### L 100.0100, M100.651 #### [facility] [address] [place], [address] MCV (RBC) [Entitic vol] 82.9 fL Normal 81-99 [facility] Comment on above: Performed By: #### L 100.0100, M100.651 #### [facility] [address] [place], [address] Platelet mean volume (Bld) [Entitic vol] 11.6 fL Normal 6.2-12.0 [facility] Comment on above: Performed By: #### L 100.0100, M100.651 #### [facility] [address] [place], [address] Platelets (Bld) [#/Vol] 285 10*3/uL Normal 150-450 [facility] Comment on above: Performed By: #### L 100.0100, M100.651 #### [facility] [address] [place], [address] RBC (Bld) [#/Vol] 4.49 10*6/uL Normal 4.2-5.4 [facility] Comment on above: Performed By: #### L 100.0100, M100.651 #### [facility] [address] [place], [address] RDW SD 46.5 fl High 35.1-43.9 [facility] Comment on above: Performed By: #### L 100.0100, M100.651 #### [facility] [address] [place], [address] WBC (Bld) [#/Vol] 7.9 10*3/uL Normal 4.4-11.0 [facility] Comment on above: Performed By: #### L 100.0100, M100.651 #### [facility] [address] [place], [address] Comprehensive Metabolic Prof ilon 06-14-2025 Albumin [Mass/Vol] 3.7 g/dL Normal 3.5-5.0 [facility] Comment on above: Performed By: #### L 100.0100, M1.651 #### [facility] [address] [place], [address] Albumin/Globulin [Mass ratio] 1.4 {ratio} Normal 0.9-2.4 [facility] Comment on above: Performed By: #### L 100.0100, M100.651 #### [facility] [address] [place], [address] ALK PHOS 820 U/L High 35-104 [facility] Comment on above: Performed By: #### L 100.0100, M1.651 #### [facility] [address] [place], [address] ALT [Catalytic activity/Vol] 950 U/L High <=34 [facility] Comment on above: Performed By: #### L 100.0100, .651 #### [facility] [address] [place], [address] AST [Catalytic activity/Vol] 481 U/L High <=31 [facility] Comment on above: Performed By: #### L 100.0100, M1.651 #### [facility] [address] [place], [address] Bilirubin [Mass/Vol] 5.50 mg/dL High 0.00-1.30 [facility] Comment on above: Performed By: #### L 100.0100, M1.651 #### [facility] [address] [place], [address] BUN/CRE 19.1 RATIO Normal 10-20 [facility] Comment on above: Performed By: #### L 100.0100, M1.651 #### [facility] [address] [place], [address] Calcium [Mass/Vol] 9.5 mg/dL Normal 7.6-11.0 [facility] Comment on above: Performed By: #### L 100.0100, M100.651 #### [facility] [address] [place], [address] Chloride [Moles/Vol] 104 mmol/L Normal 98-108 [facility] Comment on above: Performed By: #### L 100.0100, M100.651 #### [facility] [address] [place], [address] CO2 [Moles/Vol] 22.9 mmol/L Normal 21.0-32.0 [facility] Comment on above: Performed By: #### L 100.0100, M100.651 #### [facility] [address] [place], [address] Creatinine [Mass/Vol] 0.91 mg/dL Normal 0.70-1.20 [facility] Comment on above: Result Comment: Icte brianne present, Results may be affected. Performed By: #### L 100.0100, M100.651 #### [facility] [address] [place], [address] ECRCL 69.75 ml/min Normal 50-250 [facility] Comment on above: Performed By: #### L 100.0100, M100.651 #### [facility] [address] [place], [address] GAP 12 Normal 5-15 [facility] Comment on above: Performed By: #### L 100.0100, M100.651 #### [facility] [address] [place], [address] GFR/1.73 sq M.predicted among non-blacks MDRD (S/P/Bld) [Vol rate/Area] 74 mL/min/{1.73_m2} Normal >60 [facility] Comment on above: Result Comment: mL/m in/1.73m2 CKD-EPI Creatinine Equation (2020) Performed By: #### L 100.0100, M100.651 #### [facility] [address] [place], [address] Globulin (S) [Mass/Vol] 2.7 g/dL Normal 2.2-4.2 [facility] Comment on above: Performed By: #### L 100.0100, M100.651 #### [facility] [address] [place], [address] Glucose [Mass/Vol] 114 mg/dL High 70-99 [facility] Comment on above: Performed By: #### L 100.0100, M100.651 #### [facility] [address] [place], [address] Potassium [Moles/Vol] 4.0 mmol/L Normal 3.3-5.1 [facility] Comment on above: Performed By: #### L 100.0100, M100.651 #### [facility] [address] [place], [address] Sodium [Moles/Vol] 140 mmol/L Normal 133-145 [facility] Comment on above: Performed By: #### L 100.0100, M100.651 #### [facility] [address] [place], [address] T PROT 6.4 g/dL Normal 5.9-8.4 [facility] Comment on above: Performed By: #### L 100.0100, M100.651 #### [facility] [address] [place], [address] Urea nitrogen [Mass/Vol] 17 mg/dL Normal 4-19 [facility] Comment on above: Performed By: #### L 100.0100, M100.651 #### [facility] [address] [place], [address] ERCP Biliary/Pancreason 06-04 ERCP Biliary/Pancreas [facility] Imaging Services [address] [place], [place] [id number] ERCP Biliary/Pancreas MR#: [id number] Acct: [id number] Name: COREI LUGO Rep #: [id number] : 1970 F 54 From: Serafin Groves MD PCP: Dr. Joshua Whitlock MD Status: ADM IN Study: ERCP Biliary/Pancreas Date of Exam: 06/14/25 Exam# [id number] Ordering Dr: Killian Wallace DO EXAM: ERCP [...] suspected pancreatic head mass lesion. Reading Location: [facility] CC: Dr. Joshua Whitlock MD; Killian Wallace DO Smelter Charger: Signed Normal [facility] ERCP Reporton 06-14-2025 ERCP Report [facility] Medical Records Department [address] [place] [address] ERCP Report MR#: [id number] Acct: [id number] Name: CORIE LUGO Rep #: [id number] : 1970 54 From: Killian Wallace DO [...] hour 6 minutes 49 seconds Findings: The casting technician film was normal. The esophagus was successfully [...] bile duct was explored endoscopically using the SpDEXMA direct visualization system. The SpyScope was advanced to the lower third of the main duct. Visibility with the scope was good. The lumen of t (more content not included)... Normal [facility] MR/CON.PCM.GIon 06-14-2025 MR/CON.PCM.GI [facility] Medical Records Department [address] [place] [address] Consultation - GI 06/14/25 1650 MR#: [id number] Acct: [id number] Name: CORIE LUGO DONOVAN Rep #: [id number] : 1970 54 From: Killian Wallace DO PCP: Dr. Joshua Whitlock MD Status:ADM IN Location: [facility] [id number] HPI Consult Data Date of Consult: 06/14/25 [...] No evidence of metastasis on this scan. [facility] Medical History Post-menopausal Wears glasses [...] intrahepatic biliary ducts. Normal gallbladder. Reading Location: [facility] Assessment Plan Assessment/Plan (1) Mass of head [...] the prim (more content not included)... Normal [facility] MR/OP.PROVATon 06-14-2025 MR/OP.[facility] Medical Records Department [address] [place] [address] Provation Physician Letter MR#: [id number] Acct: [id number] Name: CORIE LUGO Rep #: [id number] : 1970 54 From: Killian Wallace DO PCP: Dr. Joshua Whitlock MD Status:ADM IN 06/14/2025 Joshua Whitlock Re : ERCP procedure for Corie Lugo Gisselr Kwabena This procedure was performed [...] DO Date Dictated: 06/14/25 165 Date Transcribed: Smelter Charger: RF Signed [facility] MR/POSTOP.ANEon 06-14-2025 MR/POSTOP.[facility] Medical Records Department [address] [place] [address] Anesthesia Postop Eval I 06/14/251909 MR#: [id number] Acct: [id number] Name: CORIE LUGO Rep #: [id number] : 1970 54 From: Syd Dwyer MD PCP: Dr. Joshua Whitlock MD Status:ADM IN Y Race: C Location: [place] [address] Anesthesia: Postop Eval I Current Vital Signs [...] Dwyer MD Cosigner Signature: Date CC: Signed [facility] MR/[id number] 06-14-2025 MR/POSTOPAN2 [facility] Medical Records Department [address] [place] [address] Anesthesia Postop Eval II 06/14/252101 MR#: [id number] Acct: [id number] Name: CORIE LUGO Rep #: [id number] : 1970 54 From: Syd Dwyer MD PCP: Dr. Joshua Whitlock MD Status:ADM IN Y Race: C Location: MS3 [id number] Anesthesia Postop Eval I Sum Postop Eval [...] MD Cosigner Signature: Date CC: Signed Normal [facility] Special Stain Group IIon Special Stain Group II --------- Patient Age/Sex Location Account Attending Physician CORIE LUGO 54/F MS3 [id number] Dr. Tika Casey DO Specimen: [id number] Received: 06/14/25 Status: AMBER Eaton Num: [id number] Spec Type: Fluid Subm Dr: DO HETAL [...] malignancy - see Comment. COMMENT Correlate with [id number]. Selected slides/images were reviewed in intradepartmental consultation by Dr Jase Eason (Community pathology division, [facility]). The findings were discussed with Dr Bev [...] cytology and cell block preparation. 06/15/2025 CPT: 05379r7,51100,21710i2 Signed (signature on file) Dr. Veronica Reyes MD 06/22/25 1431 Normal [facility] Comment on above: Performed By: #### L 100.0100, M100.651 #### [facility] [place], [address] Surgery Specimen Level Sis 06-14-2025 Surgery Specimen Level IV Patient Age/Sex Location Account Attending Physician CORIE LUGO 54/F MS3 [id number] Dr. Tika Casey DO Specimen: [id number] Received: 06/15/25 Status: AMBER Eaton Num: [id number] Spec Type: [facility] Dr: DO HETAL Hi OPERATION: ERCP PRE-OP DIAGNOSIS: Abdominal pain, biliary obstruction, mass of head of pancreas TISSUE SUBMITTED: A- Biliary stricture - spy bite MICROSCOPIC DIAGNOSIS A. Biliary stricture, spy bite, ERCP: - Non-diagnostic. - No tissue is recovered after processing. COMMENT Correlate with C24-398. MICROSCOPIC DESCRIPTION Slides are reviewed. GROSS DESCRIPTION A. Received in formalin labeled with the patient's name and date of . Designated as spy bite-biliary stricture is a <0.1 cm geoff of apparent tissue. Entirely submitted in 1 cassette. Specimen unlikely to survive processing. MS 06/15/2025 CPT:62205 Patient Age/Sex Location Account Attending Physician CORIE LUGO 54/F MS3 [id number] Dr. Tika Casey, DO Signed (signature on file) Dr. Veronica Reyes MD 06/20/25 1243 [facility] Comment on above: Performed By: #### L 100.0100, M100.651 #### [facility] [address] [place], [address] Abdomen/Pelvis W IV Cont ONL Yon 06-13-2025 Abdomen/Pelvis W IV Cont ONLY [facility] Imaging Services [address] [place] [address] Abdomen/Pelvis W IV Cont ONLY MR#: [id number] Acct: [id number] Name: CORIE LUGO Rep #: [id number] : 1970 F 54 From: Moe haile MD PCP: Dr. Joshua Whitlock MD Status: REG ER Study: Abdomen/Pelvis W IV Cont ONLY Date of Exam: Exam# [id number] Ordering Dr: Debi Eckert DO PROCEDURE: ABDOMEN/PELVIS [...] Findings suggestive of small gallstones. Reading Location: [facility] CC: Dr. Debi Eckert DO; Dr. Joshua Whitlock MD Smelter Charger: Signed Normal [facility] Absolute lymphocyte countOrd ered By: ED PROVIDER on 06-13-2025 Lymphocytes Auto (Unsp spec) [#/Vol] 2.61 10*3/uL 0.83-4.51 [facility] Absolute neutrophil countOrd ered By: ED PROVIDER on 06-13-2025 Neutrophils (Bld) [#/Vol] 5.7 10*3/uL 2.0-7.7 [facility] Amorphous sediment detection in urine sediment by light microscopyOrdered By: Debi Eckert on 06-13-2025 Amorphous sediment LM Ql (Urine sed) 3+ URATE [facility] Anion gap in Serum or Plasma Ordered By: ED PROVIDER on 06-13-2025 Anion gap [Moles/Vol] 14 mmol/L 5-15 [facility] Automated lymphocyte count a s percentage of total leukocytesOrdered By: ED PROVIDER on 06-13-2025 Lymphocytes/100 WBC Auto (Unsp spec) 27.7 % 19-41 [facility] BUN/creatinine ratioOrdered By: ED PROVIDER on 06-13-2025 Urea nitrogen/Creatinine [Mass ratio] 19.8 mg/mg 10-20 [facility] Basophil percentageOrdered B y: ED PROVIDER on 06-13-2025 Basophils/100 WBC (Bld) 0.8 % 0-1 [facility] Bilirubin Test strip Ql (U)O rdered By: Debi Eckert on 06-13-2025 Bilirubin Ql (U) 6 mg/dL High Negative [facility] Comment on above: COLOR OF URINE MAY A FFECT DIPSTICK RESULTS. Bilirubin, totalOrdered By: ED PROVIDER on 06-13-2025 Bilirubin [Mass/Vol] 5.65 mg/dL High 0.00-1.30 [facility] CBC W/Diff, Automatedon 06-04 Absolute Lymph 2.61 X10 3/uL Normal 0.83-4.51 [facility] Comment on above: Performed By: #### L 100.0100, L501.2450, L500.4050 #### [facility] [address] [place], [address] Absolute Neut 5.7 X10 3/uL Normal 2.0-7.7 [facility] Comment on above: Performed By: #### L 100.0100, L501.2450, L500.4050 #### [facility] [address] [place], [address] Basophils/100 WBC (Bld) 0.8 % Normal 0-1 [facility] Comment on above: Performed By: #### L 100.0100, L501.2450, L500.4050 #### [facility] [address] [place], [address] Eosinophils/100 WBC (Bld) 1.8 % Normal 0-5 [facility] Comment on above: Performed By: #### L 100.0100, L501.2450, L500.4050 #### [facility] [address] [place], [address] Erythrocyte distribution width (RBC) [Ratio] 16.0 % High 11.6-14.6 [facility] Comment on above: Performed By: #### L 100.0100, L501.2450, L500.4050 #### [facility] [address] [place], [address] Hematocrit (Bld) [Volume fraction] 40.6 % Normal 37-47 [facility] Comment on above: Performed By: #### L 100.0100, L501.2450, L500.4050 #### [facility] [address] [place], [address] Hemoglobin (Bld) [Mass/Vol] 13.6 g/dL Normal 12.0-15.0 [facility] Comment on above: Performed By: #### L 100.0100, L501.2450, L500.4050 #### [facility] [address] [place], [address] IG% 0.300 Normal 0.0-0.9 [facility] Comment on above: Result Comment: IG% - Immature Granulocytes (promyelocytes, myelocytes and metamyelocytes) > 1% indicates that a LEFT SHIFT is Present. Performed By: #### L 100.0100, L501.2450, L500.4050 #### [facility] [address] [place], [address] Lymphocytes/100 WBC (Bld) 27.7 % Normal 19-41 [facility] Comment on above: Performed By: #### L 100.0100, L501.2450, L500.4050 #### [facility] [address] [place], [address] MCH (RBC) [Entitic mass] 28.2 pg Normal 27.0-32.0 [facility] Comment on above: Performed By: #### L 100.0100, L501.2450, L500.4050 #### [facility] [address] [place], [address] MCHC (RBC) [Mass/Vol] 33.5 g/dL Normal 32-36 [facility] Comment on above: Performed By: #### L 100.0100, L501.2450, L500.4050 #### [facility] [address] [place], [address] MCV (RBC) [Entitic vol] 84.2 fL Normal 81-99 [facility] Comment on above: Performed By: #### L 100.0100, L501.2450, L500.4050 #### [facility] [address] [place], [address] Monocytes/100 WBC (Bld) 8.7 % Normal 0-10 [facility] Comment on above: Performed By: #### L 100.0100, L501.2450, L500.4050 #### [facility] [address] [place], [address] Neutrophils/100 WBC (Bld) 60.7 % Normal 47-70 [facility] Comment on above: Performed By: #### L 100.0100, L501.2450, L500.4050 #### [facility] [address] [place], [address] Nucleated RBC (Bld) [#/Vol] 0 10*3/uL Normal 0-5 [facility] Comment on above: Performed By: #### L 100.0100, L501.2450, L500.4050 #### [facility] [address] [place], [address] Platelet mean volume (Bld) [Entitic vol] 12.1 fL High 6.2-12.0 [facility] Comment on above: Performed By: #### L 100.0100, L501.2450, L500.4050 #### [facility] [address] [place], [address] Platelets (Bld) [#/Vol] 352 10*3/uL Normal 150-450 [facility] Comment on above: Performed By: #### L 100.0100, L501.2450, L500.4050 #### [facility] [address] [place], [address] RBC (Bld) [#/Vol] 4.82 10*6/uL Normal 4.2-5.4 [facility] Comment on above: Performed By: #### L 100.0100, L501.2450, L500.4050 #### [facility] [address] [place], [address] RDW SD 49.0 fl High 35.1-43.9 [facility] Comment on above: Performed By: #### L 100.0100, L501.2450, L500.4050 #### [facility] [address] [place], [address] WBC (Bld) [#/Vol] 9.4 10*3/uL Normal 4.4-11.0 [facility] Comment on above: Performed By: #### L 100.0100, L501.2450, L500.4050 #### [facility] [address] [place], [address] Carbon dioxide, total [Moles /volume] in Central venous bloodOrdered By: ED PROVIDER on 06-13-2025 CO2 [Moles/Vol] 20.7 mmol/L Low 21.0-32.0 [facility] Chloride assayOrdered By: ED PROVIDER on 06-13-2025 Chloride [Moles/Vol] 104 mmol/L 98-108 [facility] Comprehensive Metabolic Prof ilon 06-13-2025 ALT [Catalytic activity/Vol] 1069 U/L High <=34 [facility] Comment on above: Performed By: #### L 100.0100, L501.2450, L500.4050 #### [facility] [address] [place], [address] Emergency Department Summary on 06-13-2025 Emergency Department Summary [facility] Medical Records Department [address] [place] [address] Emergency Department Summary 06/13/25 MR#: [id number] Acct: [id number] Name: CORIE LUGO DONOVAN Rep #: [id number] : 1970 54 From: Debi Eckert DO PCP: Dr. Joshua Whitlock MD Status:ADM IN Location: [place] [address]-1 HPI HPI - GI History of Present [...] diminished eliana (more content not included)... Normal [facility] Eosinophil percentageOrdered By: ED PROVIDER on 06-13-2025 Eosinophils/100 WBC (Bld) 1.8 % 0-5 [facility] Erythrocyte distribution wid th ratioOrdered By: ED PROVIDER on 06-13-2025 Erythrocyte distribution width (RBC) [Ratio] 16.0 % High 11.6-14.6 [facility] Erythrocyte distribution wid th standard deviationOrdered By: ED PROVIDER on 06-13-2025 Erythrocyte distribution width (RBC) [Ratio] 49.0 fl High 35.1-43.9 [facility] Gallbladderon 06-13-2025 Gallbladder [facility] Imaging Services [address] [facility] [address] [place], [place] [id number] Gallbladder MR#: [id number] Acct: [id number] Name: CORIE LUGO Rep #: [id number] : 1970 F 54 From: Patricio Yeager MD PCP: Dr. Joshua Whitlock MD Status: ADM IN Study: Gallbladder Date of Exam: 06/13/25 Exam# [id number] Ordering Dr: Debi Eckert DO PROCEDURE: GALLBLADDER 06/13/2025 REASON FOR [...] intrahepatic biliary ducts. Normal gallbladder. Reading Location: [facility] CC: Dr. Debi Eckert DO; Dr. Joshua Whitlokc MD Smelter Charger: Signed Normal [facility] Glomerular filtration rate ( GFR) estimation/1.73 sq m using serum, plasma, or whole bOrdered By: ED PROVIDER on 06-13-2025 GFR/1.73 sq M.predicted among non-blacks MDRD (S/P/Bld) [Vol rate/Area] 65 mL/min/{1.73_m2} >60 [facility] Comment on above: mL/min/1.73m2 CKD-EP I Creatinine Equation (2020) [facility] H&P Exam - Hospitalist [facility] Medical Records Department [address] [place] [address] H P Exam - Hospitalist 06/13/25 1655 MR#: [id number] Acct: [id number] Name: CORIE LUGO Rep #: [id number] : 1970 54 From: Maynor Harvinder HARVEY PCP: Dr. Joshua Whitlock MD Status:ADM IN Location: [facility] ML510-5 HPI - General General Date of Admission: 06/13/25 Date of Service: 06/13/25 Chief Complaint: Abdominal pain with jaundice HPI Narrative CORIE LUGO, is a 54 F who presented to [facility] ED on 06/13/2025 with abdominal pain and [...] time. Will be admitted for further management. [facility] Medical History Post-menopausal Wears glasses [...] cooperative and (more content not included)... Normal [facility] Hematocrit Auto (Bld) [Volum e fraction]Ordered By: ED PROVIDER on 06-13-2025 Hematocrit (Bld) [Volume fraction] 40.6 % 37-47 [facility] Hemoglobin measurementOrdere d By: ED PROVIDER on 06-13-2025 Hemoglobin (Bld) [Mass/Vol] 13.6 g/dL 12.0-15.0 [facility] Immature granulocytes/100 WB C Auto (Bld)Ordered By: ED PROVIDER on 06-13-2025 Immature granulocytes/100 WBC (Bld) 0.300 % 0.0-0.9 [facility] Comment on above: IG% - Immature Granu locytes (promyelocytes, myelocytes and metamyelocytes) > 1% indicates that a LEFT SHIFT is Present. Ketones Test strip Ql (U)Ord ered By: Debi Eckert on 06-13-2025 Ketones Ql (U) 15 mg/dl High Negative [facility] - Chemistry and C hemistry - challengeOrdered By: ED PROVIDER on 06-13-2025 AST [Catalytic activity/Vol] 507 U/L High <32 [facility] Comment on above: Hemolysis present, R esults could be affected. Lipaseon 06-13-2025 Lipase [Catalytic activity/Vol] 12 U/L Low 13-75 [facility] Comment on above: Result Comment: Sameera green note: LIPASE revised reference range effective 23. New Lipase methodology. Expected to produce lower values than the previous assay method. NEW Reference Range: 13 - 75 U/L Performed By: #### L 100.0100, L501.2450, L500.4050 #### [facility] [address] [place], [place], [address] Lipase measurementOrdered By : ED PROVIDER on 06-13-2025 Lipase [Catalytic activity/Vol] 12 U/L Low 13-75 [facility] Comment on above: Please note:LIPASE r evised reference range effective 23. New Lipase methodology. Expected to produce lower values than the previous assay method. NEW Reference Range: 13 - 75 U/L MCV (mean corpuscular volume ) determinationOrdered By: ED PROVIDER on 06-13-2025 MCV (RBC) [Entitic vol] 84.2 fL 81-99 [facility] Mean corpuscular hemoglobin (MCH) determinationOrdered By: ED PROVIDER on 06-13-2025 MCH (RBC) [Entitic mass] 28.2 pg 27.0-32.0 [facility] Mean corpuscular hemoglobin concentration (MCHC) determinationOrdered By: ED PROVIDER on 06-13-2025 MCHC (RBC) [Mass/Vol] 33.5 g/dL 32-36 [facility] Mean platelet volume determi nationOrdered By: ED PROVIDER on 06-13-2025 Platelet mean volume (Bld) [Entitic vol] 12.1 fL High 6.2-12.0 [facility] Microscopic analysis of urin e for red blood cells (RBC)Ordered By: Debi Eckert on 06-13-2025 Microscopic analysis of urine for red blood cells (RBC) 0-5 SEEN /hpf 0-5 [facility] Monocyte percentageOrdered B y: ED PROVIDER on 06-13-2025 Monocytes/100 WBC (Bld) 8.7 % 0-10 [facility] Mucus LM Ql (Urine sed)Order ed By: Debi Eckert on 06-13-2025 Mucus Ql (Urine sed) 0 SEEN /hpf [facility] Neutrophil percentageOrdered By: ED PROVIDER on 06-13-2025 Neutrophils/100 WBC (Bld) 60.7 % 47-70 [facility] Nitrite Test strip Ql (U)Ord ered By: Debi Eckert on 06-13-2025 Nitrite Ql (U) Negative Negative [facility] Nucleated red blood cell per centageOrdered By: ED PROVIDER on 06-13-2025 Nucleated RBC/100 WBC (Bld) [Ratio] 0 % 0-5 [facility] Platelet countOrdered By: ED PROVIDER on 06-13-2025 Platelets (Bld) [#/Vol] 352 10*3/uL 150-450 [facility] Potassium measurement (mass/ volume)Ordered By: ED PROVIDER on 06-13-2025 Potassium (Unsp spec) [Mass/Vol] 4.2 mmol/L 3.3-5.1 [facility] Comment on above: Hemolysis present, R esults could be affected. Protein Test strip Ql (U)Ord ered By: Debi Eckert on 06-13-2025 Protein Ql (U) 100 mg/dl High Negative [facility] RBC Auto (Bld) [#/Vol]Ordere d By: ED PROVIDER on 06-13-2025 RBC (Bld) [#/Vol] 4.82 10*6/uL 4.2-5.4 [facility] Serum creatinine measurement (mass/volume)Ordered By: ED PROVIDER on 06-13-2025 Creatinine [Mass/Vol] 1.01 mg/dL 0.70-1.20 [facility] Comment on above: Icterus present, Res ults may be affected. Serum globulin measurementOr dered By: ED PROVIDER on 06-13-2025 Globulin (S) [Mass/Vol] 3.3 g/dL 2.2-4.2 [facility] Serum glucose measurement (m ass/volume)Ordered By: ED PROVIDER on 06-13-2025 Glucose [Mass/Vol] 99 mg/dL 70-99 [facility] Serum or plasma alanine giles otransferase (ALT) measurementOrdered By: ED PROVIDER on 06-13-2025 ALT [Catalytic activity/Vol] 1069 U/L High <35 [facility] Serum or plasma albumin jen urement (mass/volume)Ordered By: ED PROVIDER on 06-13-2025 Albumin [Mass/Vol] 4.0 g/dL 3.5-5.0 [facility] Serum or plasma albumin/glob ulin mass ratioOrdered By: ED PROVIDER on 06-13-2025 Albumin/Globulin [Mass ratio] 1.2 {ratio} 0.9-2.4 [facility] Serum or plasma alkaline shagufta sphatase measurementOrdered By: ED PROVIDER on 06-13-2025 ALP [Catalytic activity/Vol] 886 U/L High 35-104 [facility] Serum or plasma calcium jen urement (mass/volume)Ordered By: ED PROVIDER on 06-13-2025 Calcium [Mass/Vol] 10.0 mg/dL 7.6-11.0 [facility] Serum or plasma urea nitroge n measurement (mass/volume)Ordered By: ED PROVIDER on 06-13-2025 Urea nitrogen [Mass/Vol] 20 mg/dL High 4-19 [facility] Sodium levelOrdered By: ED Lissy CUADRA on 06-13-2025 Sodium [Moles/Vol] 139 mmol/L 133-145 [facility] Squamous epithelial cells de tection in urine sediment by light microscopyOrdered By: Debi Eckert on 06-13-2025 Epithelial cells.squamous LM Ql (Urine sed) 5-10 SEEN /hpf - [facility] Total proteinOrdered By: ED PROVIDER on 06-13-2025 Protein [Mass/Vol] 7.3 g/dL 5.9-8.4 [facility] Urinalysis, Completeon 06-13 AMORPHOUS 3+ URATE Normal [facility] Comment on above: Order Comment: COLOR OF URINE MAY AFFECT DIPSTICK RESULTS.PIPE BLANKS CUT OFF SAW OPERATOR TO SPECIFY Performed By: #### L 400.0001 ####[facility] [address] [facility] [address] RBC 0-5 SEEN Normal 0-5 [facility] Comment on above: Order Comment: COLOR OF URINE MAY AFFECT DIPSTICK RESULTS.PIPE BLANKS CUT OFF SAW OPERATOR TO SPECIFY Performed By: #### L 400.0001 ####[facility] [address] [place], [address] WBC 10-25 SEEN Normal 0-5 [facility] Comment on above: Order Comment: COLOR OF URINE MAY AFFECT DIPSTICK RESULTS.PIPE BLANKS CUT OFF SAW OPERATOR TO SPECIFY Performed By: #### L 400.0001 ####[facility] [address] [place], [address] EPI,SQUAMOUS 5-10 SEEN Normal 5-10 [facility] Comment on above: Order Comment: COLOR OF URINE MAY AFFECT DIPSTICK RESULTS.PIPE BLANKS CUT OFF SAW OPERATOR TO SPECIFY Performed By: #### L 400.0001 ####[facility] [address] [place], [address] BACTERIA 0 SEEN Normal None Seen [facility] Comment on above: Order Comment: COLOR OF URINE MAY AFFECT DIPSTICK RESULTS.PIPE BLANKS CUT OFF SAW OPERATOR TO SPECIFY Performed By: #### L 400.0001 ####[facility] [address] [place], [place], [id number] Mucus Ql (Urine sed) 0 SEEN Normal [facility] Comment on above: Order Comment: COLOR OF URINE MAY AFFECT DIPSTICK RESULTS.PIPE BLANKS CUT OFF SAW OPERATOR TO SPECIFY Performed By: #### L 400.0001 ####[facility] [address] [place], [place], [id number] Urine clarityOrdered By: Elvira Eckert on 06-13-2025 Clarity (U) Clear Clear [facility] Urine color determinationOrd ered By: Debi Eckert on 06-13-2025 Color (U) Lynn Yellow [facility] Urine glucose detectionOrder ed By: Debi Eckert on 06-13-2025 Glucose Ql (U) Normal mg/dl Normal [facility] Urine leukocyte esterase det ection by dipstickOrdered By: Debi Eckert on 06-13-2025 Leukocyte esterase Test strip Ql (U) 500 /ul High Negative [facility] Urine pHOrdered By: Debi Gonzalez gur on 06-13-2025 pH (U) 5.0 [pH] 5.0 - 8.0 [facility] Urine sediment bacteria coun t by microscopy (number/high power field)Ordered By: Debi Eckert on 06-13-2025 Bacteria LM.HPF (Urine sed) [#/Area] 0 /[HPF] None Seen [facility] Urine specific gravity measu rementOrdered By: Debi Eckert on 06-13-2025 Specific gravity (U) [Rel density] 1.020 1.002-1.03 0 [facility] Urine urobilinogen measureme ntOrdered By: Debi Eckert on 06-13-2025 Urobilinogen Ql (U) 4 mg/dl High Normal [facility] White blood cell (WBC) count Ordered By: ED PROVIDER on 06-13-2025 WBC (Bld) [#/Vol] 9.4 10*3/uL 4.4-11.0 [facility] White blood cell countOrdere d By: Debi Eckert on 06-13-2025 White blood cell count 10-25 SEEN /hpf 0-5 [facility] Bedside Glucoseon 09-25-2024 FINGERSTICK GLU 87 mg/dL Normal 74-106 [facility] Comment on above: Result Comment: DAVID STOCK OF PATIENT CARE PER NURSING PROTOCOL Performed By: #### L 501.080 ####[facility] [address] [place], [place], [id number] Decalcification bone/plaqueo n 09-25-2024 Decalcification bone/plaque Patient Age/Sex Location Account Attending Physician CORIE LUGO 54/F [facility] [id number]. Rudy Sullivan MD Specimen: [id number] Received: 09/25/24 Status: AMBER Eaton Num: [id number] Spec Type: TOTAL KNEE Subm Dr: Dr. [...] prominent osteophyte formation, eburnation and bone erosion. Legal Word Processor sections are submitted in two cassettes as follows: 1 - soft tissue, 2 and 3 - bone after decalcification. /[place]:aye 09/25/24 TC:5 CPT: 90750, 36611 Patient Age/Sex Location Account Attending Physician CORIE LUGO DONOVAN 54/F [facility] [id number] Dr. Rudy Sullivan MD Signed (signature on file) Dr. Wally Ryan MD 10/02/24 1116 Normal [facility] Comment on above: Performed By: #### P DEC ####[facility] [address] [facility] [place], [address] Knee 1 or 2 Viewson 09-25-20 24 Knee 1 or 2 Views [facility] Imaging Services [address] [place], [place] [id number] Knee 1 or 2 Views MR#: [id number] Acct: [id number] Name: CORIE LUGO DOONVAN Rep #: [id number] : 1970 F 54 From: Ruslan Marie PCP: Dr. Joshua Whitlock MD Status: [facility] Study: Knee 1 or 2 Views Date of Exam: 09/25/24 Exam# [id number] Ordering Dr: Rudy Sullivan MD [id number] INDICATION: tka -- in PACU EXAMINATION/TECHNIQUE: X-RAY [...] Joshua Whitlock MD; Dr. Rudy Sullivan MD Smelter Charger: Signed [facility] MR/POSTOP.[facility] [place] 09-25-2024 MR/POSTOP.[facility] Medical Records Department [address] [place] [address] Anesthesia Postop Eval I 09/25/24 1014 MR#: [id number] Acct: [id number] Name: CORIE LUGO Rep #: [id number] : 1970 54 From: Lio Rao PCP: Dr. Joshua Whitlock MD Status:REG [facility] Y Race: C Location: [place] [address] Anesthesia: Postop Eval I Current Vital Signs [...] Lio Graham Signature: Date CC: Signed Normal [facility] MR/[id number] 09-25-2024 MR/POSTOPAN2 [facility] Medical Records Department [address] [place] [address] Anesthesia Postop Eval II 09/25/24 1014 MR#: [id number] Acct: [id number] Name: CORIE LUGO DONOVAN Rep #: [id number] : 1970 54 From: Lio Rao PCP: Dr. Joshua Whitlock MD Status:REG [facility] Y Race: C Location: [place] [address] Anesthesia Postop Eval I Sum Postop Eval Completion status Anesthesia document: Postop Eval 1 completed: Yes Anesthesia Postop Eval I Summary Anesthesia Postop Eval I Summary: Anesthesia Postop Eval I: Assessment Summary Airway patent Yes 09/25/24 10:14 VICE PRESIDENT OF OPERATIONS.MDOT Spontaneous unlabored Yes 09/25/24 10:14 [employer]PERATIONS.MDOT respirations Mental status Awake,Calm 09/25/24 10:14 [employer].MDOT nausea No 09/25/24 10:14 [employer].MDOT Vomiting No 09/25/24 10:14 [employer]PERATIONS.MDOT Anesthesia Postop Eval I: Fluid Summary Crystalloid volume administer 1,000 09/25/24 10:14 [employer] OPERATIONS.MDOT (ml) Colloids volume administered ( ml) Blood Product volume administered (ml) Total IV fluid infused 1,000 09/25/24 10:14 [employer]PERATIONS.MDOT Anesthesia Postop Eval I: Summary Notes Anesthesia Complication No 09/25/24 10:14 [employer]PERATIONS.MDOT Anesthesia Complication Comment: Post-operative progress note Anesthesia: Postop Eval II Evaluation Mental status: Awake and Calm Pain Level: 0 nausea: No Vomiting: No Complications Anesthesia Complication: No 09/25/24 1015 Date Lio Graham Signature: Date CC: Signed Normal [facility] Operative Reporton 4 Operative Report [facility] Medical Records Department [address] [place] [address] Operative Report 09/25/24 0857 MR#: [id number] Acct: [id number] Name: CORIE LUGO Rep #: [id number] : 1970 54 From: Rudy Sullivan MD PCP: Dr. Joshua Whitlock MD Status:REG [facility] Location: [place] [address] Operative Report (Standard) Operative Information Date of Procedure: 09/25/24 Pre-Operative Diagnosis: Left knee primary osteoarthritis Post-Operative Diagnosis: Left knee primary osteoarthritis Surgery/Procedure Performed: Left total knee replacement patient advocate: Yes Air Quality Chemist: Matheus Casetlan Tasks completed by billing and accounting staff assistant: Other (See operative report) Additional compliance assistant?: No Type of Anesthesia: Spinal RN [...] cuts Description of surgery: Implants used: 1. [place] size 2 triathlon cruciate retaining distal femoral [...] size 2 (more content not included)... Normal [facility] MRSA/SAID NASAL SCREENon MRSA+SAID SCRN Reason for Exam: PRE OP MRSA MRSA Negative S. AUREUS S. aureus Negative Normal [facility] Comment on above: Performed By: #### L 100.0100, M100.651 #### [facility] [address] [facility] [place], [address] 12 Lead EKGon 09-06-2024 12 Lead EKG [facility] Cardiovascular Services [address] [place] [address] 12 Lead EKG 09/06/24 0753 MR#: [id number] Acct: [id number] Name: CORIE LUGO Rep #: [id number] : 1970 54 From: Itzel Perez MD Attending Dr: Dr. Rudy Sullivan MD Status: PRE [facility] Ordering Dr: Rudy Sullivan MD Date: 09/06/24 Location: [facility] Sex: F C Admitted: Test Reason : PREOP Blood Pressure : */* mmHG Vent. Rate : 76 BPM Atrial Rate : 76 BPM P-R Int : 136 ms QRS Dur : 76 ms QT Int : 370 ms P-R-T Axes : 59 0 36 degrees QTcB Int : 416 ms Normal sinus rhythm Normal ECG Confirmed by Itzel Perez ([id number]), editor & co founder JOSEY GALVAN ([id number]) on 09/06/2024 8:28:41 AM Referred By: Rudy Sullivan Confirmed By: Itzel Perez 09/06/24 0828 Date Itzel Perez MD CC: Dr. Joshua Whitlock MD; Dr. Rudy Sullivan MD Signed Normal [facility] CBC W/Diff, Automatedon 12-0 Absolute Lymph 2.06 X10 3/uL Normal 0.83-4.51 [facility] Comment on above: Performed By: #### L 100.0100, M100.651 #### [facility] [address] [place], [address] Absolute Neut 9.7 X10 3/uL High 2.0-7.7 [facility] Comment on above: Performed By: #### L 100.0100, M100.651 #### [facility] [address] [place], [address] Basophils/100 WBC (Bld) 0.5 % Normal 0-1 [facility] Comment on above: Performed By: #### L 100.0100, M100.651 #### [facility] [address] [place], [address] Eosinophils/100 WBC (Bld) 0.8 % Normal 0-5 [facility] Comment on above: Performed By: #### L 100.0100, M100.651 #### [facility] [address] [place], [address] Erythrocyte distribution width (RBC) [Ratio] 14.5 % Normal 11.6-14.6 [facility] Comment on above: Performed By: #### L 100.0100, M100.651 #### [facility] [address] [place], [address] Hematocrit (Bld) [Volume fraction] 44.2 % Normal 37-47 [facility] Comment on above: Performed By: #### L 100.0100, M100.651 #### [facility] [address] [place], [address] Hemoglobin (Bld) [Mass/Vol] 14.1 g/dL Normal 12.0-15.0 [facility] Comment on above: Performed By: #### L 100.0100, M100.651 #### [facility] [address] [place], [address] IG% 0.300 Normal 0.0-0.9 [facility] Comment on above: Result Comment: IG% - Immature Granulocytes (promyelocytes, myelocytes and metamyelocytes) > 1% indicates that a LEFT SHIFT is Present. Performed By: #### L 100.0100, M100.651 #### [facility] [address] [place], [address] Lymphocytes/100 WBC (Bld) 15.7 % Low 19-41 [facility] Comment on above: Performed By: #### L 100.0100, M100.651 #### [facility] [address] [place], [address] MCH (RBC) [Entitic mass] 27.8 pg Normal 27.0-32.0 [facility] Comment on above: Performed By: #### L 100.0100, M100.651 #### [facility] [address] [place], [address] MCHC (RBC) [Mass/Vol] 31.9 g/dL Low 32-36 [facility] Comment on above: Performed By: #### L 100.0100, M100.651 #### [facility] [address] [place], [address] MCV (RBC) [Entitic vol] 87.0 fL Normal 81-99 [facility] Comment on above: Performed By: #### L 100.0100, M100.651 #### [facility] [address] [place], [address] Monocytes/100 WBC (Bld) 8.3 % Normal 0-10 [facility] Comment on above: Performed By: #### L 100.0100, M100.651 #### [facility] [address] [place], [address] Neutrophils/100 WBC (Bld) 74.4 % High 47-70 [facility] Comment on above: Performed By: #### L 100.0100, .651 #### [facility] [address] [place], [address] Nucleated RBC (Bld) [#/Vol] 0 10*3/uL Normal 0-5 [facility] Comment on above: Performed By: #### L 100.0100, M1.651 #### [facility] [address] [place], [address] Platelet mean volume (Bld) [Entitic vol] 10.8 fL Normal 6.2-12.0 [facility] Comment on above: Performed By: #### L 100.0100, .65 #### [facility] [address] [place], [address] Platelets (Bld) [#/Vol] 347 10*3/uL Normal 150-450 [facility] Comment on above: Performed By: #### L 100.0100, .65 #### [facility] [address] [place], [address] RBC (Bld) [#/Vol] 5.08 10*6/uL Normal 4.2-5.4 [facility] Comment on above: Performed By: #### L 100.0100, M1.651 #### [facility] [address] [place], [address] RDW SD 46.6 fl High 35.1-43.9 [facility] Comment on above: Performed By: #### L 100.0100, M100.651 #### [facility] [address] [place], [address] WBC (Bld) [#/Vol] 13.1 10*3/uL High 4.4-11.0 [facility] Comment on above: Performed By: #### L 100.0100, M100.651 #### [facility] [address] [place], [address] Extremity Lower without Cont raon 09-06-2024 Extremity Lower without Contra [facility] Imaging Services [address] [place] [address] Extremity Lower without Contra MR#: [id number] Acct: [id number] Name: CORIE LUGO Rep #: [id number] : 1970 F 54 From: Slava Casey MD PCP: Dr. Joshua Whitlock MD Status: REG CLI Study: Extremity Lower without Contra Date of Exam: 11/07/23 Exam# [id number] Ordering Dr: Rudy Sullivan MD [id number] CT LEFT LOWER EXTREMITY WITH 3-D IMAGING [...] 14:58 EST Reading Location ID and State: [facility] / [place] , Service support , CC: Dr. Joshua Whitlock MD; Dr. Rudy Sullivan MD Smelter Charger: Signed Normal [facility] Magnesiumon 09-06-2024 Magnesium [Mass/Vol] 2.2 mg/dL Normal 1.6-2.6 [facility] Comment on above: Performed By: #### L 501.5200, L300.3900, L300.4310 ####[facility] [address] [place], [address] Partial Thromboplast Timeon 09-06-2024 aPTT Coag (Bld) [Time] 25.2 s Normal 24.1-36.2 [facility] Comment on above: Performed By: #### L 501.5200, L300.3900, L300.4310 ####[facility] [address] [place], [address] Prothrombin Time w/INRon INR Coag (PPP) [Relative time] 1.0 {INR} Normal [facility] Comment on above: Performed By: #### L 501.5200, L300.3900, L300.4310 ####[facility] [address] [place], [address] PT Coag (PPP) [Time] 12.9 s Normal 11.7-14.9 [facility] Comment on above: Performed By: #### L 501.5200, L300.3900, L300.4310 ####[facility] [address] [place], [address] [facility] Albumin [Mass/Vol] 4.2 g/dL Normal 3.6-5.1 [facility] Comment on above: Performed By: #### 7 600, 79699, 25341 #### [facility] of [place] [address] Application Analyst: Landon Barriga MD Albumin/Globulin [Mass ratio] 1.8 {ratio} Normal 1.0-2.5 [facility] Comment on above: Performed By: #### 7 600, 22252, 76349 #### [facility] [place] [address] Application Analyst: Landon Barriga MD ALP [Catalytic activity/Vol] 81 U/L Normal 37-153 [facility] Comment on above: Performed By: #### 7 600, 72389, 26721 #### [facility] [place] [address] Application Analyst: Landon Barriga MD ALT [Catalytic activity/Vol] 14 U/L Normal 6-29 [facility] Comment on above: Performed By: #### 7 600, 08621, 94138 #### [facility] [place] [address] Application Analyst: Landon Barriga MD AST [Catalytic activity/Vol] 11 U/L Normal 10-35 [facility] Comment on above: Performed By: #### 7 600, 61610, 79751 #### [facility] [place] [address] Application Analyst: Landon Barriga MD Bilirubin [Mass/Vol] 0.4 mg/dL Normal 0.2-1.2 [facility] Comment on above: Performed By: #### 7 600, 29039, 64134 #### [facility] of [address] [place] [address] Application Analyst: Landon Barriga MD Calcium [Mass/Vol] 9.4 mg/dL Normal 8.6-10.4 [facility] Comment on above: Performed By: #### 7 600, 15107, 97862 #### [facility] of [address], [address] [place] [address] Application Analyst: Landon Barriga MD Chloride [Moles/Vol] 106 mmol/L Normal 98-110 [facility] Comment on above: Performed By: #### 7 600, 54860, 24568 #### [facility] [place] [address] Application Analyst: Landon Barriga MD CO2 [Moles/Vol] 24 mmol/L Normal 20-32 [facility] Comment on above: Performed By: #### 7 600, 53589, 74122 #### [facility] [place] [address] Application Analyst: Landon Barriga MD Creatinine [Mass/Vol] 0.81 mg/dL Normal 0.50-1.03 [facility] Comment on above: Performed By: #### 7 600, 54924, 60418 #### [facility] [place] [address] Application Analyst: Landon Barriga MD GFR/1.73 sq M.predicted among non-blacks MDRD (S/P/Bld) [Vol rate/Area] 85 mL/min/{1.73_m2} Normal > OR = 60 [facility] Comment on above: Performed By: #### 7 600, 73786, 49864 #### [facility] [place] [address] Application Analyst: Landon Barriga MD Globulin (S) [Mass/Vol] 2.3 g/dL Normal 1.9-3.7 [facility] Comment on above: Performed By: #### 7 600, 13443, 32800 #### [facility] of [address], [address] [place] [address] Application Analyst: Landon Barriga MD Glucose [Mass/Vol] 95 mg/dL Normal 65-99 [facility] Comment on above: Result Comment: Fasting reference interval Performed By: #### 7 600, 70162, 67936 #### [facility] [place] [address] Application Analyst: Landon Barriga MD Potassium [Moles/Vol] 4.3 mmol/L Normal 3.5-5.[address] [facility] Comment on above: Performed By: #### 7 600, 87093, 34227 #### [facility] [place] [address] Application Analyst: Landon Barriga MD Protein [Mass/Vol] 6.5 g/dL Normal 6.1-8.1 [facility] Comment on above: Performed By: #### 7 600, 77215, 58832 #### [facility] [place] [address] Application Analyst: Landon Barriga MD Sodium [Moles/Vol] 141 mmol/L Normal 135-146 [facility] Comment on above: Performed By: #### 7 600, 86056, 88570 #### [facility] [place] [address] Application Analyst: Landon Barriga MD Urea nitrogen [Mass/Vol] 29 mg/dL High 7-25 [facility] Comment on above: Performed By: #### 7 600, 63665, 72259 #### [facility] [place] [address] Application Analyst: Landon Barriga MD Urea nitrogen/Creatinine [Mass ratio] 36 mg/mg High 6-22 [facility] Comment on above: Performed By: #### 7 600, 71137, 66583 #### [facility] [place] [address] Application Analyst: Landon Barriga MD LIPID PANEL, [place] [address] Cholesterol [Mass/Vol] 196 mg/dL Normal <200 [facility] Comment on above: Performed By: #### 7 600, 54704, 30306 #### [facility] [place] [address] Application Analyst: Landon Barriga MD Cholesterol in HDL [Mass/Vol] 49 mg/dL Low > OR = 50 [facility] Comment on above: Performed By: #### 7 600, 14576, 39284 #### [facility] [place] [address] Application Analyst: Landon Barriga MD Cholesterol in LDL [Mass/Vol] [...] LDL-C. Ross GILLIS et al. VIDAL. 2013;310(19): 7567-4059 (http://education.[place]oyah.[place]/faq/ELT630) Performed By: #### 7 600, 59727, 64790 #### [facility] [place] [address] Application Analyst: Landon Barriga MD Cholesterol.total/Chol esterol in HDL [Mass ratio] 4.0 {ratio} Normal <5.0 [facility] Comment on above: Performed By: #### 7 600, 25468, 15025 #### [facility] [place] [address] Application Analyst: Landon Barriga MD NON HDL CHOLESTEROL 147 mg/dL (calc) High <130 [facility] Comment on above: Result Comment: For patients with diabetes plus 1 major ASCVD risk factor, treating to a non-HDL-C goal of <100 mg/dL (LDL-C of <70 mg/dL) is considered a therapeutic option. Performed By: #### 7 600, 78892, 91293 #### [facility] [address], [address] [place] [address] Application Analyst: Landon Barriga MD Triglyceride [Mass/Vol] 108 mg/dL Normal <150 [facility] Comment on above: Performed By: #### 7 600, 42856, 16902 #### [facility] [address], [address] Application Analyst: Landon Barriga MD SPECIMEN INTEGRITY COMPROMIS EDon [...] red cells. Performed By: #### 7 600, 35396, 37334 #### [facility] [address], [address] [place], [place] [address] Application Analyst: Landon Barriga MD Laboratory - Chemistry and C hemistry - challengeon 07-31-2024 Albumin [Mass/Vol] 4.2 g/dL Normal 3.6 - 5.1 g/dL [employer] [facility] [employer] Albumin/Globulin [Mass ratio] 1.8 {ratio} Normal 1.0 - 2.5 [place] [employer] [employer] ALP [Catalytic activity/Vol] 81 U/L Normal 37 - 153 U/L [employer] ALT [Catalytic activity/Vol] 14 U/L Normal 6 - 29 U/L [employer] AST [Catalytic activity/Vol] 11 U/L Normal 10 - 35 U/L [employer] Bilirubin [Mass/Vol] 0.4 mg/dL Normal 0.2 - 1 .2 mg/dL [employer] Calcium [Mass/Vol] 9.4 mg/dL Normal 8.6 - 10. 4 mg/dL [employer] Chloride [Moles/Vol] 106 mmol/L Normal 98 - 11 0 mmol/L [facility], [facility].; [facility], [facility]. Cholesterol [Mass/Vol] 196 mg/dL Normal [facility].; [facility], [facility] Cholesterol in HDL [Mass/Vol] 49 mg/dL Abnormal [facility], [facility].; [facility], [facility]. Cholesterol in LDL [Mass/Vol] 125 mg/dL Abnormal [facility].; [facility], [facility]. CO2 [Moles/Vol] 24 mmol/L Normal 20 - 32 mmol/L [facility].; [facility], [facility]. Creatinine [Mass/Vol] 0.81 mg/dL Normal 0.50 - 1.03 mg/dL [facility].; [facility], [facility]. GFR/1.73 sq M.predicted among non-blacks MDRD (S/P/Bld) [Vol rate/Area] 85 mL/min/{1.73_m2} Normal [facility].; [facility], [facility]. Glucose [Mass/Vol] 95 mg/dL Normal 65 - 99 mg/dL [facility], [facility].; [place] [facility], [facility]. Potassium [Moles/Vol] 4.3 mmol/L Normal 3.5 - 5.3 mmol/L [facility].; [place] [facility], [facility]. Protein [Mass/Vol] 6.5 g/dL Normal 6.1 - 8.1 g/dL [facility], [facility].; [place] [facility], Inc[employer] Sodium [Moles/Vol] 141 mmol/L Normal 135 - 146 mmol/L [facility], [facility].; [place] [employer] Triglyceride [Mass/Vol] 108 mg/dL Normal [facility], [facility].; [place] [facility], [facility]. Urea nitrogen [Mass/Vol] 29 mg/dL Abnormal 7 - 25 mg/dL [facility].; [place] [facility], [facility]. Urea nitrogen/Creatinine [Mass ratio] 36 mg/mg Abnormal 6 - 22 [facility], [facility].; [place] [facility], [facility]. No Panel Informationon 07-31 CHOL/HDLC RATIO 4.0 Normal [facility].; [employer] GLOBULIN 2.3 Normal 1.9 - 3.7 [employer] NON HDL CHOLESTEROL 147 Abnormal [facility] ShareThe [facility] HospitalVocab.; [employer] SPECIMEN INTEGRITY COMPROMISED See Below Normal [place] [employer].; [employer]. Work Phone: Absolute lymphocyte countOrd ered By: Matheus Castelan on 10-18-2023 Lymphocytes Auto (Unsp spec) [#/Vol] 2.14 10*3/uL 0.83-4.51 [facility] Basophil percentageOrdered B y: Matheus Castelan on 10-18-2023 Basophils/100 WBC (Bld) 0.3 % 0-1 [facility] Chloride [Moles/Vol] 110 mmol/L 98-107 [facility] Eosinophils/100 WBC (Bld) 2.4 % 0-5 [facility] Glucose [Mass/Vol] 96 mg/dL 74-106 [facility] Neutrophils (Bld) [#/Vol] 6.3 10*3/uL 2.0-7.7 [facility] Neutrophils/100 WBC (Bld) 65.2 % 47-70 [facility] Potassium [Moles/Vol] 4.2 mmol/L 3.5-5.1 [facility] Sodium [Moles/Vol] 140 mmol/L 136-145 [facility] WBC (Bld) [#/Vol] 9.6 10*3/uL 4.4-11.0 [facility] Blood erythrocytes count (nu mber/volume)Ordered By: Matheus Castelan on 10-18-2023 RBC (Bld) [#/Vol] 4.85 10*6/uL 4.2-5.4 [facility] Blood hemoglobin measurement (mass/volume)Ordered By: Matheus Castelan on 10-18-2023 Hemoglobin (Bld) [Mass/Vol] 13.6 g/dL 12.0-15.0 [facility] Blood lymphocytes/100 leukoc ytesOrdered By: Matheus Castelan on 10-18-2023 Lymphocytes/100 WBC (Bld) 22.3 % 19-41 [facility] Blood monocytes/100 leukocyt esOrdered By: Matheus Castelan on 10-18-2023 Monocytes/100 WBC (Bld) 9.4 % 0-10 [facility] Blood platelet mean volumeOr dered By: Matheus Castelan on 10-18-2023 Platelet mean volume (Bld) [Entitic vol] 10.9 fL 6.2-12.0 [facility] Determination of erythrocyte mean corpuscular volume (MCV)Ordered By: Matheus Castelan on 10-18-2023 MCV (RBC) [Entitic vol] 87.2 fL 81-99 [facility] Hematocrit Auto (Bld) [Volum e fraction]Ordered By: Matheus Castelan on 10-18-2023 Hematocrit (Bld) [Volume fraction] 42.3 % 37-47 [facility] Laboratory - Chemistry and C hemistry - challengeOrdered By: Matheus Castelan on 10-18-2023 CO2 [Moles/Vol] 24.0 mmol/L 21.0-32.0 [facility] Urea nitrogen/Creatinine [Mass ratio] 28.2 mg/mg 10-20 [facility] Laboratory - Hematology and Cell countsOrdered By: Matheus Castelan on 10-18-2023 Erythrocyte distribution width (RBC) [Entitic vol] 45.4 fL 35.1-43.9 [facility] Erythrocyte distribution width (RBC) [Ratio] 14.1 % 11.6-14.6 [facility] Immature granulocytes/100 WBC (Bld) 0.400 % 0.0-0.9 [facility] Comment on above: IG% - Immature Granu locytes (promyelocytes, myelocytes and metamyelocytes) > 1% indicates that a LEFT SHIFT is Present. MCH (RBC) [Entitic mass] 28.0 pg 27.0-32.0 [facility] Nucleated RBC/100 WBC (Bld) [Ratio] 0 % 0-5 [facility] MCHC Auto (RBC) [Mass/Vol]Or dered By: Matheus Castelan on 10-18-2023 MCHC (RBC) [Mass/Vol] 32.2 g/dL 32-36 [facility] No Panel InformationOrdered By: Matheus Castelan on 10-18-2023 Estimated GFR (MDRD) Amer 89 mL/min >60 [facility] Comment on above: GFR Calc Estimated GFR (MDRD) Non-Af Amer 74 mL/min >60 [facility] Comment on above: Non- GFR Calc Platelets bldOrdered By: Arsenio Castelan on 10-18-2023 Platelets (Bld) [#/Vol] 355 10*3/uL 150-450 [facility] Serum or plasma calcium jen urement (mass/volume)Ordered By: Matheus Castelan on 10-18-2023 Calcium [Mass/Vol] 9.6 mg/dL 8.5-10.1 [facility] Serum or plasma creatinine m easurement (mass/volume)Ordered By: Matheus Castelan on 10-18-2023 Creatinine [Mass/Vol] 0.85 mg/dL 0.55-1.02 [facility] Comment on above: The validity of the calculated GFR & GFRAA in patients over 70 years has not been determined. Clinical correlation is essential. Serum or plasma urea nitroge n measurement (mass/volume)Ordered By: Matheus Castelan on 10-18-2023 Urea nitrogen [Mass/Vol] 24 mg/dL 04-20 [facility] Thin prep Papanicolaou smear with manual screeningOrdered By: Matheus Castelan on 10-18-2023 Thin prep Papanicolaou smear with manual screening 6 02-15 [facility] Whole blood hemoglobin A1c/t otal hemoglobin ratio (mass fraction)Ordered By: Matheus Castelan on 10-18-2023 HbA1c (Bld) [Mass fraction] 5.6 % 3.8-5.6 [facility] Comment on above: Normal < 5.7 % Predi abetic 5.7 - 6.4 % Diabetic >or= 6.5 % Please note range changes. No Panel Informationon 06-04 [id number] SEE NOTE Normal [place] [facility], [employer].; [employer], [employer] CLINICAL INFORMATION: SEE NOTE Normal [facility].; [place] [facility], Inc. VETERINARY PATHOLOGIST: SEE NOTE Normal [place] [employer], [facility].; [place] [employer] INTERPRETATION/RESULT: SEE NOTE Normal [facility], Inc.; [employer] LMP: SEE NOTE Normal [facility] [employer], [facility].; [facility], Inc. PREV. BX: SEE NOTE Normal [facility] [employer].; [employer]. PREV. PAP: SEE NOTE Normal [facility] [employer] SOURCE: SEE NOTE Normal [facility].; [place] [employer]. STATEMENT OF ADEQUACY: SEE NOTE Normal [facility].; [employer], [employer]. Laboratory - Chemistry and C hemistry - challengeon 05-28-2022 Albumin [Mass/Vol] 4.2 g/dL Normal 3.6 - 5.1 g/dL [facility].; [employer]. Albumin/Globulin [Mass ratio] 1.8 {ratio} Normal 1.0 - 2.5 [place] [facility]The [facility]Vocab.; [employer], [employer]. ALP [Catalytic activity/Vol] 77 U/L Normal 37 - 153 U/L [facility].; [employer]. ALT [Catalytic activity/Vol] 16 U/L Normal 6 - 29 U/L [facility].; [employer], [employer]. AST [Catalytic activity/Vol] 15 U/L Normal 10 - 35 U/L [place] [employer].; [employer]. Bilirubin [Mass/Vol] 0.2 mg/dL Normal 0.2 - 1 .2 mg/dL [place] [facility]The [facility] HospitalVocab.; [employer], [employer]. Calcium [Mass/Vol] 9.2 mg/dL Normal 8.6 - 10. 4 mg/dL [place] [employer].; [employer], [employer]. Chloride [Moles/Vol] 106 mmol/L Normal 98 - 11 0 mmol/L [place] [employer].; [employer], [employer]. Cholesterol [Mass/Vol] 201 mg/dL Abnormal [facility].; [employer], [employer]. Cholesterol in HDL [Mass/Vol] 44 mg/dL Abnormal [place] [employer].; [employer] Cholesterol in LDL [Mass/Vol] 130 mg/dL Abnormal [employer].; [employer] CO2 [Moles/Vol] 28 mmol/L Normal 20 - 32 mmol/L [place] [employer].; [employer]. Creatinine [Mass/Vol] 0.82 mg/dL Normal 0.50 - 1.03 mg/dL [facility].; [place] [facility]The [facility] HospitalK[facility]. GFR/1.73 sq M.predicted among non-blacks MDRD (S/P/Bld) [Vol rate/Area] 85 mL/min/{1.73_m2} Normal [facility].; [place] [facility]The [facility] HospitalVocab Glucose [Mass/Vol] 91 mg/dL Normal 65 - 99 mg/dL [place] [facility]The [facility] HospitalK[facility] Market [facility].; [employer] [facility]. Potassium [Moles/Vol] 4.5 mmol/L Normal 3.5 - 5.3 mmol/L [place] [facility]The [facility] HospitalK[facility] Market [facility].; [place] [employer]. Protein [Mass/Vol] 6.5 g/dL Normal 6.1 - 8.1 g/dL [place] [facility]The [facility] HospitalK[facility] Market [facility].; [employer] Sodium [Moles/Vol] 141 mmol/L Normal 135 - 146 mmol/L [place] [facility]The [facility] HospitalK[facility] Market [facility].; [employer]. Triglyceride [Mass/Vol] 153 mg/dL Abnormal [place] [employer] [facility]; [employer] Urea nitrogen [Mass/Vol] 23 mg/dL Normal 7 - 25 mg/dL [place] [employer] [facility].; [employer]. No Panel Informationon 05-28 BUN/CREATININE RATIO NOT APPLICABLE Normal 6 - 22 [place] [facility]The [facility] HospitalK[facility] Market [facility].; [employer]. CHOL/HDLC RATIO 4.6 Normal [place] [facility]The [facility] HospitalK[facility] Market [facility].; [employer]. GLOBULIN 2.3 Normal 1.9 - 3.7 [place] ShareThe [facility] HospitalK[facility] Market [facility].; [employer]. NON HDL CHOLESTEROL 157 Abnormal [facility] ShareThe [facility] HospitalKatuah Market [facility].; [employer]. Laboratory - Chemistry and C hemistry - challengeon 12-24-2020 Albumin [Mass/Vol] 4.7 g/dL Normal 3.6 - 5.1 g/dL [facility].; [employer]. Albumin/Globulin [Mass ratio] 2.0 {ratio} Normal 1.0 - 2.5 [place] [facility]The [facility] HospitalVocab.; [employer]. ALP [Catalytic activity/Vol] 68 U/L Normal 37 - 153 U/L [facility].; [facility], [facility]. ALT [Catalytic activity/Vol] 18 U/L Normal 6 - 29 U/L [facility].; [facility], [facility]. AST [Catalytic activity/Vol] 13 U/L Normal 10 - 35 U/L [facility], [facility].; [facility], [facility]. Bilirubin [Mass/Vol] 0.2 mg/dL Normal 0.2 - 1 .2 mg/dL [facility].; [place] [facility], [facility]. Calcium [Mass/Vol] 9.9 mg/dL Normal 8.6 - 10. 4 mg/dL [facility], [facility].; [facility], [facility]. Chloride [Moles/Vol] 106 mmol/L Normal 98 - 11 0 mmol/L [facility], [facility].; [place] [facility], [employer]. CO2 [Moles/Vol] 27 mmol/L Normal 20 - 32 mmol/L [facility].; [place] [facility], [employer]. Creatinine [Mass/Vol] 0.87 mg/dL Normal 0.50 - 1.05 mg/dL [facility].; [place] [facility], [facility]. GFR/1.73 sq M.predicted among blacks MDRD (S/P/Bld) [Vol rate/Area] 89 mL/min/{1.73_m2} Normal [facility], [facility].; [facility], [facility]. Glucose [Mass/Vol] 95 mg/dL Normal 65 - 99 mg/dL [facility].; [place] [employer], [employer]. Potassium [Moles/Vol] 4.6 mmol/L Normal 3.5 - 5.3 mmol/L [facility].; [place] [facility], [employer]. Protein [Mass/Vol] 7.0 g/dL Normal 6.1 - 8.1 g/dL [facility], [facility].; [place] [facility], Inc. Sodium [Moles/Vol] 142 mmol/L Normal 135 - 146 mmol/L [facility], [facility].; [place] [employer], [employer]. TSH Qn 1.41 m[IU]/L Normal [facility].; [place] [facility], [facility]. Urea nitrogen [Mass/Vol] 28 mg/dL Abnormal 7 - 25 mg/dL [facility].; [place] [facility]The [facility] HospitalK[facility] Urea nitrogen/Creatinine [Mass ratio] 32 mg/mg Abnormal 6 - 22 [facility].; [place] [facility]The [facility] HospitalK[facility] Laboratory - Hematology and Cell countson 12-24-2020 Basophils (Bld) [#/Vol] 0.05 10*3/uL Normal 0 - 200 {cells/uL} [facility].; [place] [facility]The [facility] HospitalK[facility] Basophils/100 WBC (Bld) 0.6 % Normal [facility].; [facility] Eosinophils (Bld) [#/Vol] 0.116 10*3/uL Normal 15 - 500 {cells/uL} [facility].; [place] [facility]The [facility] HospitalK[facility] Eosinophils/100 WBC (Bld) 1.4 % Normal [facility].; [place] [employer] [facility] Erythrocyte distribution width (RBC) [Ratio] 12.6 % Normal 11.0 - 15.0 % [facility].; [place] [employer], [facility] Hematocrit (Bld) [Volume fraction] 44.5 % Normal 35.0 - 45.0 % [facility].; [place] [employer], [facility] Hemoglobin (Bld) [Mass/Vol] 14.8 g/dL Normal 11.7 - 15.5 g/dL [facility].; [place] [facility], [facility] Lymphocytes (Bld) [#/Vol] 2.191 10*3/uL Normal 850 - 3900 {cells/uL} [facility].; [place] [employer] [facility] Lymphocytes/100 WBC (Bld) 26.4 % Normal [facility].; [place] [employer], [facility]. MCH (RBC) [Entitic mass] 30.0 pg Normal 27.0 - 33.0 pg [place] ShareThe [facility] HospitalKatu[facility] Market [facility].; [place] [employer], [facility]. MCHC (RBC) [Mass/Vol] 33.3 g/dL Normal 32.0 - 36.0 g/dL [facility].; [place] [employer], [facility]. MCV (RBC) [Entitic vol] 90.1 fL Normal 80.0 - 100.0 fL [facility]; [facility] Monocytes (Bld) [#/Vol] 0.672 10*3/uL Normal 200 - 950 {cells/uL} [facility].; [facility] Monocytes/100 WBC (Bld) 8.1 % Normal [facility]; [facility] Neutrophils (Bld) [#/Vol] 5.271 10*3/uL Normal 1500 - 7800 {cells/uL} [facility].; [facility] Neutrophils/100 WBC (Bld) 63.5 % Normal [facility]; [facility] Platelet mean volume (Bld) [Entitic vol] 11.2 fL Normal 7.5 - 12.5 fL [facility]; [facility], [facility] Platelets (Bld) [#/Vol] 279 10*3/uL Normal 140 - 400 [facility]; [facility] RBC (Bld) [#/Vol] 4.94 10*6/uL Normal 3.80 - 5.10 {Million/u L} [facility].; [facility] WBC (Bld) [#/Vol] 8.3 10*3/uL Normal 3.8 - 10.8 [facility].; [place] [facility]The [facility] HospitalK[facility] No Panel Informationon 12-24 eGFR NON-AFR. AUSTRIAN 77 Normal [facility]; [place] [employer] [facility] GLOBULIN 2.3 Normal 1.9 - 3.7 [facility].; [place] [employer] [facility] Laboratory - Cytologyon 09-03 Microscopic observation Cyto stain Nom (Cvx) Normal [facility]; [place] [employer] [facility] Laboratory - Chemistry and C hemistry - challengeon 09-15-2010 Bilirubin Ql (U) Negative Normal [facility].; [place] [employer] Ketones Ql (U) Negative Normal [facility].; [place] ShareThe [facility] HospitalK[facility] pH (U) 5.5 [pH] Normal 4.6 - 8.0 [employer].; [employer] Specific gravity (U) [Rel density] 1.005 Normal 1.001 - 1.025 [employer].; [employer] Laboratory - Cytologyon 09-03 Cytology report Cyto stain Doc (Cvx/Vag) SEE NOTE Normal [employer].; [employer]. Laboratory - Hematology and Cell countson 09-15-2010 Hemoglobin Ql (U) small Abnormal [employer].; [employer]. Laboratory - Specimen inform ationon 09-15-2010 Appearance (U) clear Normal [employer] Color (U) yellow Normal [employer] Laboratory - Urinalysison Glucose Test strip (U) [Mass/Vol] Negative Normal [employer].; [employer]. Leukocyte esterase Test strip Ql (U) Negative Normal [employer] Nitrite Ql (U) Negative Normal [employer] Protein Ql (U) Negative Normal [employer]. No Panel Informationon 09-15 UA - UROBILINOGEN 0.2 mg/dL Normal [employer].; [employer] Laboratory - Chemistry and C hemistry - challengeon 08-07-2010 Cholesterol [Mass/Vol] 207 mg/dL Abnormal 0 - 2 00 mg/dL [employer].; [employer] Cholesterol in HDL [Mass/Vol] 49 mg/dL Normal 40 - 60 mg/dL [employer].; [employer]. Cholesterol in LDL [Mass/Vol] N/A Normal 0 - 100 mg/dL [employer].; [employer] Glucose [Mass/Vol] 113 mg/dL Abnormal 60 - 100 mg/dL [employer].; [employer], [employer]. Triglyceride [Mass/Vol] mg/dL Abnormal 0 - 150 mg/dL [employer] Vital Signs Date Time Vital Sign Value Performing Clinician Facility 06-26-2025 12:02-0400 Diastolic blood pressure 65 mm[Hg] Preston Armas MD Work Phone: [facility] 06-26-2025 12:02-0400 Heart rate 61 /min Preston Armas MD Work Phone: [facility] 06-26-2025 12:02-0400 Respiratory rate 18 /min Preston Armas MD Work Phone: [facility] 06-26-2025 12:02-0400 SaO2% (BldA) [Mass fraction] 99 % Preston Armas MD Work Phone: [facility] 06-26-2025 12:02-0400 Systolic blood pressure 117 mm[Hg] Preston Armas MD Work Phone: [facility] [facility] 06-26-2025 10:46-0400 Body temperature 97 [degF] Preston Armas MD Work Phone: [facility] 06-26-2025 08:44-0400 Body weight 84.82 kg Preston Armas MD Work Phone: [facility] 06-18-2025 19:24-0400 Body temperature 98.3 [degF] Dr. Joshua Whitlock MD Work Phone: [facility] 06-18-2025 19:24-0400 Diastolic blood pressure 64 mm[Hg] Dr. Joshua Whitlock MD Work Phone: [facility] 06-18-2025 19:24-0400 Heart rate 56 /min Dr. Joshua Whitlock MD Work Phone: [facility] 06-18-2025 19:24-0400 Respiratory rate 16 /min Dr. Joshua Whitlock MD Work Phone: [facility] 06-18-2025 19:24-0400 SaO2% (BldA) [Mass fraction] 99 % Dr. Joshua Whitlock MD Work Phone: [facility] 06-18-2025 19:24-0400 Systolic blood pressure 125 mm[Hg] Dr. Joshua Whitlock MD Work Phone: 4(700)815-236711 [place] [address] 06-18-2025 16:13-0400 Body height 154.[address] Joshua Whitlock MD Work Phone: 2(769)869-805111 [place] [address] 06-18-2025 16:13-0400 Body mass index (BMI) [Ratio] 35.9 kg/m2 Dr. Joshua Whitlock MD Work Phone: 7(457)751-321511 [place] [address] 06-18-2025 16:13-0400 Body weight 86.[address] Joshua Whitlock MD Work Phone: 2(303)476-212711 [place] [address] 06-15-2025 09:12-0400 Body temperature 99.1 [degF] Dr. Joshua Whitlock MD Work Phone: 4(231)515-629511 [place] [address] 06-15-2025 09:12-0400 Diastolic blood pressure 63 mm[Hg] Dr. Joshua Whitlock MD Work Phone: 4(178)932-121411 [place] [address] 06-15-2025 09:12-0400 Heart rate 62 /min Dr. Joshua Whitlock MD Work Phone: 5(117)135-513011 [place] [address] 06-15-2025 09:12-0400 Respiratory rate 16 /min Dr. Joshua Whitlock MD Work Phone: 6(086)822-773111 [place] [address] 06-15-2025 09:12-0400 SaO2% (BldA) [Mass fraction] 97 % Dr. Joshua Whitlock MD Work Phone: 8(451)382-906911 [place] [address] 06-15-2025 09:12-0400 Systolic blood pressure 113 mm[Hg] Dr. Joshua Whitlock MD Work Phone: 8(519)302-584511 [place] [address] 06-14-2025 12:25-0400 Body height 157.[address] Joshua Whitlock MD Work Phone: 4(638)893-881611 [place] [address] 06-14-2025 12:25-0400 Body weight 84.[address] Joshua Whitlock MD Work Phone: 4(763)101-779811 [place] [address] 06-13-2025 18:29-0400 Body mass index (BMI) [Ratio] 34.2 kg/m2 Dr. Joshua Whitlock MD Work Phone: 5(561)646-707711 [place] [address] 06-13-2025 17:40-0400 Body temperature 97.4 [degF] Dr. Joshua Whitlock MD Work Phone: 8(992)431-026011 [place] [address] 06-13-2025 17:40-0400 Diastolic blood pressure 79 mm[Hg] Dr. Joshua Whitlock MD Work Phone: 8(348)825-771711 [place] [address] 06-13-2025 17:40-0400 Heart rate 69 /min Dr. Joshua Whitlock MD Work Phone: 6(109)028-609211 [place] [address] 06-13-2025 17:40-0400 Respiratory rate 17 /min Dr. Joshua Whitlock MD Work Phone: 2(762)748-997311 [place] [address] 06-13-2025 17:40-0400 SaO2% (BldA) [Mass fraction] 100 % Dr. Joshua Whitlock MD Work Phone: 3(564)998-001511 [place] [address] 06-13-2025 17:40-0400 Systolic blood pressure 127 mm[Hg] Dr. Joshua Whitlock MD Work Phone: 0(379)653-434411 [place] [address] 06-13-2025 13:36-0400 Body height 157.[address] Joshua Whitlock MD Work Phone: 6(556)784-360211 [place] [address] 06-13-2025 13:36-0400 Body mass index (BMI) [Ratio] 34.2 kg/m2 Dr. Joshua Whitlock MD Work Phone: 6(783)919-831711 [place] [address] 06-13-2025 13:36-0400 Body weight 84.[address] Joshua Whitlock MD Work Phone: 1(792)307-069411 [place] [address] 05-28-2025 13:52-0400 Body height 157.48 cm Lili Downey LPN [facility], [facility].; [facility], [facility]. 05-28-2025 13:52-0400 Body mass index (BMI) [Ratio] 34.93 kg/m2 Lili Downey LPN [facility], [facility].; [facility], [facility] 05-28-2025 13:52-0400 Body surface area Derived from formula 1.87 m2 Lili Downey LPN [facility], [facility].; [facility] 05-28-2025 13:52-0400 Body weight 86.64 kg Lili Downey LPN [facility], [facility].; [facility]. 05-28-2025 13:52-0400 Diastolic blood pressure 72 mm[Hg] Lili Downey LPN [facility], [facility].; [facility], [facility]. Comment on above: Patient Position: Sitting; Cuff Location : Left Arm; Cuff Size: Standard 05-28-2025 13:52-0400 Heart rate 80 /min Lili Downey LPN [facility], [facility].; [facility], [facility]. Comment on above: Pattern: Regular 05-28-2025 13:52-0400 Systolic blood pressure 109 mm[Hg] Lili Downey LPN [facility], [facility].; [facility], [facility]. Comment on above: Patient Position: Sitting; Cuff Location : Left Arm; Cuff Size: Standard 02-07-2025 13:23-0400 Body height 157.48 cm Flakito Grady LPN [facility], [facility].; [facility], [facility]. 02-07-2025 13:23-0400 Body mass index (BMI) [Ratio] 34.57 kg/m2 Flakito Grady LPN [facility], [facility].; [facility], [facility]. 02-07-2025 13:23-0400 Body surface area Derived from formula 1.87 m2 Flakito Grady LPN [facility], [facility].; [facility], [facility]. 02-07-2025 13:23-0400 Body weight 85.73 kg Flakito Grady LPN [facility], [facility].; [facility], [facility]. 02-07-2025 13:23-0400 Diastolic blood pressure 70 mm[Hg] Flakito Grady LPN [facility], [facility].; [place] [facility] [facility], [facility]. Comment on above: Patient Position: Sitting; Cuff Location : Left Arm; Cuff Size: Standard 02-07-2025 13:23-0400 Heart rate 94 /min Flakito Grady LPN [facility], [facility] [place] [facility] [facility] Comment on above: Pattern: Regular 02-07-2025 13:23-0400 Systolic blood pressure 104 mm[Hg] Flakito Grady LPN [facility], [facility].; [facility], [employer]. Comment on above: Patient Position: Sitting; Cuff Location : Left Arm; Cuff Size: Standard 09-13-2024 13:50-0500 Body height 157.48 cm Falkito Grady LPN [facility], [facility].; [facility], [employer]. 09-13-2024 13:50-0500 Body mass index (BMI) [Ratio] 37.86 kg/m2 Flakito Grady LPN [facility], [facility].; [facility], [employer]. 09-13-2024 13:50-0500 Body surface area Derived from formula 1.94 m2 Flakito Grady [facility], [facility].; [facility], [facility]. 09-13-2024 13:50-0500 Body temperature 97 [degF] Flakito Grady [facility], [facility].; [facility], [employer]. 09-13-2024 13:50-0500 Body weight 93.9 kg Flakito Grady [employer]IPPING INSPECTOR [facility], [facility].; [facility], [facility]. 09-13-2024 13:50-0500 Diastolic blood pressure 72 mm[Hg] Flakito Grady [facility], [facility].; [place] [employer] [facility], [employer]. Comment on above: Patient Position: Sitting; Cuff Location : Left Arm; Cuff Size: Standard 09-13-2024 13:50-0500 Heart rate 72 /min Flakito Grady SHIPPING INSPECTOR [facility], [facility].; [place] [employer] [facility], [employer]. Comment on above: Pattern: Regular 09-13-2024 13:50-0500 Inhaled oxygen concentration 21 % Flakito Grady [facility], [facility].; [place] [employer] [facility]. Comment on above: Room air 09-13-2024 13:50-0500 SaO2% (BldA) [Mass fraction] 98 % Flakito Grady [facility], [facility].; [place] [employer] [facility], [employer]. 09-13-2024 13:50-0500 Systolic blood pressure 111 mm[Hg] Flakito Grady LPN [facility], [facility].; [employer] [facility]. Comment on above: Patient Position: Sitting; Cuff Location : Left Arm; Cuff Size: Standard 08-11-2024 11:10-0500 Body height 157.48 cm Flakito Grady [facility], [facility].; [facility] 08-11-2024 11:10-0500 Body mass index (BMI) [Ratio] 37.49 kg/m2 Flakito Grady SHIPPING INSPECTOR [facility], [facility] 08-11-2024 11:10-0500 Body surface area Derived from formula 1.93 m2 Flakito Grady SHIPPING INSPECTOR [facility] 08-11-2024 11:10-0500 Body weight 92.99 kg Flakito Grady [facility], [facility].; [place] [employer] [facility] 08-11-2024 11:10-0500 Diastolic blood pressure 71 mm[Hg] Flakito Grady [facility], [facility].; [employer] Comment on above: Patient Position: Sitting; Cuff Location : Left Arm; Cuff Size: Standard 08-11-2024 11:10-0500 Heart rate 67 /min Flakito Grady SHIPPING INSPECTOR [facility], [facility] [employer] Comment on above: Pattern: Regular 08-11-2024 11:10-0500 Systolic blood pressure 103 mm[Hg] Flakito Grady [facility], [facility] [place] [employer] [facility] Comment on above: Patient Position: Sitting; Cuff Location : Left Arm; Cuff Size: Standard 10-25-2023 08:14-0500 Body height 157.48 cm Maddi Xin SHIPPING INSPECTOR [facility], [facility] [place] [employer] [facility] 10-25-2023 08:14-0500 Body mass index (BMI) [Ratio] 38.41 kg/m2 Maddi [place] [facility], [facility].; [place] [employer] [facility] 10-25-2023 08:14-0500 Body surface area Derived from formula 1.95 m2 Maddi [place] [employer]IPPING INSPECTOR [facility] [place] [employer] [facility] 10-25-2023 08:14-0500 Body weight 95.26 kg Maddi [place] [facility], [facility].; [employer] [facility], [employer]. 10-25-2023 08:14-0500 Diastolic blood pressure 88 mm[Hg] Heather Lauren LPN [facility], [facility].; [employer] [facility], [employer]. Comment on above: Patient Position: Sitting; Cuff Location : Left Arm; Cuff Size: Large 10-25-2023 08:14-0500 Heart rate 73 /min Heather Lauren LPN [facility], [facility] [employer] Comment on above: Pattern: Regular 10-25-2023 08:14-0500 Systolic blood pressure 118 mm[Hg] Heather Lauren SHIPPING INSPECTOR [facility], [facility] [employer], [employer]. Comment on above: Patient Position: Sitting; Cuff Location : Left Arm; Cuff Size: Large 04-02-2023 10:24-0400 Body height 157.48 cm Grace Garcia MA [facility], [facility].; [place] [employer] [facility] 04-02-2023 10:24-0400 Body mass index (BMI) [Ratio] 37.91 kg/m2 Grace Garcia MA [facility], [facility].; [employer] 04-02-2023 10:24-0400 Body surface area Derived from formula 1.94 m2 Grace Garcia MA [facility], [facility].; [employer] [facility], [facility] 04-02-2023 10:24-0400 Body weight 94.01 kg Grace Garcia MA [facility], [facility].; [place] [facility] [facility] 04-02-2023 10:24-0400 Diastolic blood pressure 86 mm[Hg] Grace Garcia MA [facility], [facility].; [employer], [employer]. Comment on above: Patient Position: Sitting; Cuff Location : Left Arm; Cuff Size: Standard 04-02-2023 10:24-0400 Heart rate 71 /min Grace Garcia MA [facility], [facility].; [employer], [employer]. Comment on above: Pattern: Regular 04-02-2023 10:24-0400 Systolic blood pressure 136 mm[Hg] Grace Garcia MA [facility], [facility] [employer]. Comment on above: Patient Position: Sitting; Cuff Location : Left Arm; Cuff Size: Standard 10-14-2022 09:26-0500 Body height 157.48 cm Lili Mcleod MA [facility], [facility].; [facility]. 10-14-2022 09:26-0500 Body mass index (BMI) [Ratio] 38.41 kg/m2 Lili Mcleod MA [facility].; [facility]. 10-14-2022 09:26-0500 Body surface area Derived from formula 1.95 m2 Lili Mcleod MA [facility].; [facility]. 10-14-2022 09:26-0500 Body temperature 98.2 [degF] Lili Mcleod MA [facility].; [facility]. Comment on above: Method: Tympanic 10-14-2022 09:26-0500 Body weight 95.26 kg Lili Mcleod MA [facility].; [facility]. 10-14-2022 09:26-0500 Diastolic blood pressure 75 mm[Hg] Lili Mcleod MA [facility].; [facility]. Comment on above: Patient Position: Sitting; Cuff Location : Left Arm; Cuff Size: Standard 10-14-2022 09:26-0500 Heart rate 87 /min Lili Mcleod MA [facility].; [facility]. Comment on above: Pattern: Regular 10-14-2022 09:26-0500 Inhaled oxygen concentration 20 % Lili [facility]cleod [facility].; [facility]. Comment on above: Room air 10-14-2022 09:26-0500 Inhaled oxygen concentration 21 % Lili Mcleod MA [facility].; [place] [facility] [facility]. Comment on above: Room air 10-14-2022 09:26-0500 SaO2% (BldA) [Mass fraction] 98 % Lili Mcleod MA [facility].; [place] [employer] [facility] [employer] 10-14-2022 09:26-0500 Systolic blood pressure 108 mm[Hg] Lili [facility]cleod MA [facility].; [facility]. Comment on above: Patient Position: Sitting; Cuff Location : Left Arm; Cuff Size: Standard 09-15-2022 11:17-0500 Body height 157.48 cm Lili Mcleod MA [facility], [facility].; [facility]. 09-15-2022 11:17-0500 Body mass index (BMI) [Ratio] 38.77 kg/m2 Lili Mcleod MA [facility], [facility].; [facility]. 09-15-2022 11:17-0500 Body surface area Derived from formula 1.96 m2 Lili Mcleod MA [facility], [facility].; [facility]. 09-15-2022 11:17-0500 Body temperature 97.3 [degF] Lili Mcleod MA [facility].; [facility]. Comment on above: Method: Tympanic 09-15-2022 11:170500 Body weight 96.16 kg Lili Mcleod MA [facility].; [facility]. 09-15-2022 11:17-0500 Diastolic blood pressure 80 mm[Hg] Lili [facility]cleod MA [facility].; [place] [employer]. Comment on above: Patient Position: Sitting; Cuff Location : Left Arm; Cuff Size: Standard 09-15-2022 11:17-0500 Heart rate 82 /min Lili Mcleod MA [facility], [facility].; [facility] [employer]. Comment on above: Pattern: Regular 09-15-2022 11:17-0500 Inhaled oxygen concentration 20 % Lili [facility]cleod MA [facility].; [facility] [employer]. Comment on above: Room air 09-15-2022 11:17-0500 Inhaled oxygen concentration 21 % Lili Mcleod MA [facility], [facility].; [place] [employer]. Comment on above: Room air 09-15-2022 11:17-0500 SaO2% (BldA) [Mass fraction] 98 % Lili Mcleod MA [facility], [facility].; [place] [employer]. 09-15-2022 11:17-0500 Systolic blood pressure 121 mm[Hg] Lili [facility]cleod [facility].; [employer]. Comment on above: Patient Position: Sitting; Cuff Location : Left Arm; Cuff Size: Standard 06-04-2022 07:25-0400 Body height 157.48 cm Lili Downey LPN [facility], [facility].; [facility], [facility]. 06-04-2022 07:25-0400 Body mass index (BMI) [Ratio] 38.23 kg/m2 Lili Downey LPN [facility], [facility] [place] [facility] [facility], [facility]. 06-04-2022 07:25-0400 Body surface area Derived from formula 1.95 m2 Lili Downey LPN [facility], [facility].; [place] [employer] [facility], [facility]. 06-04-2022 07:25-0400 Body weight 94.8 kg Lili Downey LPN [facility], [facility].; [place] [employer] [facility], [facility]. 06-04-2022 07:25-0400 Diastolic blood pressure 71 mm[Hg] Lili Downey LPN [facility], [facility].; [employer]. Comment on above: Patient Position: Sitting; Cuff Location : Left Arm; Cuff Size: Standard 06-04-2022 07:25-0400 Heart rate 78 /min Lili Downey LPN [facility], [facility].; [employer]. Comment on above: Pattern: Regular 06-04-2022 07:25-0400 Systolic blood pressure 106 mm[Hg] Lili Downey LPN [facility], [facility].; [employer]. Comment on above: Patient Position: Sitting; Cuff Location : Left Arm; Cuff Size: Standard 04-07-2022 07:46-0400 Body height 157.48 cm Heather Lauren LPN [facility], [facility].; [employer]. 04-07-2022 07:46-0400 Body mass index (BMI) [Ratio] 37.86 kg/m2 Maddi Xin SHIPPING INSPECTOR [facility], [facility] [employer] 04-07-2022 07:46-0400 Body surface area Derived from formula 1.94 m2 Maddi Xin SHIPPING INSPECTOR [facility] [employer]. 04-07-2022 07:46-0400 Body weight 93.9 kg Heather Lauren LPN [facility], [facility]. 04-07-2022 07:46-0400 Diastolic blood pressure 64 mm[Hg] Heather Lauren LPN [facility] [place] [employer] [facility] Comment on above: Patient Position: Sitting; Cuff Location : Left Arm; Cuff Size: Large 04-07-2022 07:46-0400 Heart rate 88 /min Heather Lauren LPN [facility], [facility] [place] [employer] [facility], [employer]. Comment on above: Pattern: Regular 04-07-2022 07:46-0400 Systolic blood pressure 106 mm[Hg] Heather Lauren [facility], [facility] [place] [employer] [facility], [facility] Comment on above: Patient Position: Sitting; Cuff Location : Left Arm; Cuff Size: Large 12-24-2020 11:04-0400 Body height 157.48 cm Heather Lauren [facility], [facility] [place] [employer] [facility] 12-24-2020 11:04-0400 Body mass index (BMI) [Ratio] 37.68 kg/m2 MaddiDora Lauren [facility], [facility].; [place] [facility] [facility], [facility] 12-24-2020 11:04-0400 Body surface area Derived from formula 1.94 m2 MaddiDora Lauren SHIPPING INSPECTOR [facility] [place] [facility] [facility], [facility] 12-24-2020 11:04-0400 Body weight 93.44 kg Heather Lauren [facility], [facility].; [place] [employer] [facility], [facility] 12-24-2020 11:04-0400 Diastolic blood pressure 72 mm[Hg] Heather Lauren [facility], [facility].; [employer] [employer] [facility], [employer]. Comment on above: Patient Position: Sitting; Cuff Location : Left Arm; Cuff Size: Large 12-24-2020 11:04-0400 Heart rate 80 /min Heather Lauren [facility], [facility] [employer], [employer]. Comment on above: Pattern: Regular 12-24-2020 11:04-0400 Systolic blood pressure 138 mm[Hg] Heather John Xin [place] [employer]. Comment on above: Patient Position: Sitting; Cuff Location : Left Arm; Cuff Size: Large 12-20-2020 07:29-0400 Body height 157.48 cm Denise Salgado RN [employer] [facility].; [employer] 12-20-2020 07:29-0400 Body mass index (BMI) [Ratio] 37.68 kg/m2 Denise Salgado RN [employer] [facility].; [employer] [facility]. 12-20-2020 07:290400 Body surface area Derived from formula 1.94 m2 Denise Salgado RN [employer] [facility].; [employer]. 12-20-2020 07:29-0400 Body temperature 97.2 [degF] Denise Salgado RN [employer].; [employer]. Comment on above: Method: Tympanic 12-20-2020 07:290400 Body weight 93.44 kg Denise Salgado RN [employer].; [employer] 12-20-2020 07:29-0400 Diastolic blood pressure 73 mm[Hg] Denise Salgado RN [employer].; [employer]. Comment on above: Patient Position: Sitting; Cuff Location : Left Arm; Cuff Size: Large 12-20-2020 07:29-0400 Heart rate 86 /min Denise Salgado RN [employer].; [employer]. Comment on above: Pattern: Regular 12-20-2020 07:29-0400 Systolic blood pressure 121 mm[Hg] Denise Salgado RN [employer].; [employer]. Comment on above: Patient Position: Sitting; Cuff Location : Left Arm; Cuff Size: Large 02-07-2020 09:50-0400 Body height 157.48 cm Maddi Xin [place] [employer] [facility].; VB Rags. 02-07-2020 09:50-0400 Body mass index (BMI) [Ratio] 34.93 kg/m2 Heather Lauren [facility], Inc.; [employer], [employer]. 02-07-2020 09:50-0400 Body surface area Derived from formula 1.87 m2 Heather Lauren SHIPPING INSPECTOR [facility], Inc.; [employer], [employer]. 02-07-2020 09:50-0400 Body weight 86.64 kg Heather Lauren [facility] ShareThe [facility], Inc.; [employer], [employer]. 02-07-2020 09:50-0400 Diastolic blood pressure 62 mm[Hg] Heather Lauren [facility] ShareThe [facility], Inc.; [employer], [employer]. Comment on above: Patient Position: Sitting; Cuff Location : Left Arm; Cuff Size: Large 02-07-2020 09:50-0400 Heart rate 82 /min Heather Lauren [facility], Inc.; [employer]. Comment on above: Pattern: Regular 02-07-2020 09:50-0400 Systolic blood pressure 107 mm[Hg] Heather Lauren SHIPPING INSPECTOR [employer] [facility], Inc.; VB Rags. Comment on above: Patient Position: Sitting; Cuff Location : Left Arm; Cuff Size: Large 01-06-2019 11:48-0400 Body height 157.48 cm Denise Salgado RN [place] ShareThe [facility], [employer].; VB Rags. 01-06-2019 11:48-0400 Body mass index (BMI) [Ratio] 36.58 kg/m2 Denise Salgado RN [place] ShareThe [facility], [employer].; [employer] Rags. 01-06-2019 11:48-0400 Body surface area Derived from formula 1.91 m2 Denise Salgado RN [employer], [employer].; [employer]. 01-06-2019 11:48-0400 Body temperature 98.4 [degF] Denise Salgado RN [employer], [employer].; [employer] R[employer]. Comment on above: Method: Tympanic 01-06-2019 11:48-0400 Body weight 90.72 kg Denise Salgado RN [facility], Inc.; [employer], [employer]. 01-06-2019 11:48-0400 Diastolic blood pressure 73 mm[Hg] Denise Salgado RN [facility], Inc.; [employer], [employer]. Comment on above: Patient Position: Sitting; Cuff Location : Left Arm; Cuff Size: Standard 01-06-2019 11:48-0400 Heart rate 92 /min Denise Salgado RN [facility], Inc.; [employer], [employer]. Comment on above: Pattern: Regular 01-06-2019 11:48-0400 Systolic blood pressure 107 mm[Hg] Denise Salgado RN [facility], Inc.; [employer], [employer]. Comment on above: Patient Position: Sitting; Cuff Location : Left Arm; Cuff Size: Standard 05-31-2018 08:57-0400 Body height 157.48 cm MaddiDora Lauren LPN [facility], Inc.; [employer], [employer] 05-31-2018 08:57-0400 Body mass index (BMI) [Ratio] 35.48 kg/m2 MaddiDora Lauren SHIPPING INSPECTOR [facility], Inc.; [employer], [employer]. 05-31-2018 08:57-0400 Body surface area Derived from formula 1.89 m2 Maddijayde Lauren LPN [facility], Inc.; [employer], [employer]. 05-31-2018 08:57-0400 Body weight 88 kg MaddiDora Lauren LPN [facility], Inc.; [employer], [employer]. 05-31-2018 08:57-0400 Diastolic blood pressure 79 mm[Hg] Heather Lauren LPN [facility], Inc.; [employer], [employer]. Comment on above: Patient Position: Sitting; Cuff Location : Left Arm; Cuff Size: Large 05-31-2018 08:57-0400 Heart rate 94 /min MaddiDora Lauren LPN [facility], Inc.; [employer], [employer]. Comment on above: Pattern: Regular 05-31-2018 08:57-0400 Systolic blood pressure 114 mm[Hg] Heather Lauren LPN [place] [employer].; [employer]. Comment on above: Patient Position: Sitting; Cuff Location : Left Arm; Cuff Size: Large 01-22-2017 10:03-0400 Body height 157.48 cm Joshua Whitlock MD Work Phone: [employer].; [employer]. 01-22-2017 10:03-0400 Body mass index (BMI) [Ratio] 36.58 kg/m2 Joshua Whitlock MD Work Phone: [employer].; [employer]. 01-22-2017 10:03-0400 Body surface area Derived from formula 1.91 m2 Joshua Whitlock MD Work Phone: [employer].; [employer]. 01-22-2017 10:03-0400 Body temperature 99.1 [degF] Joshua Whitlock MD Work Phone: [employer].; [employer]. Comment on above: Method: Tympanic 01-22-2017 10:03-0400 Body weight 90.72 kg Joshua Whitlock MD Work Phone: [employer].; [employer]. 01-22-2017 10:03-0400 Diastolic blood pressure 81 mm[Hg] Joshua Whitlock MD Work Phone: [employer].; [employer]. Comment on above: Patient Position: Sitting; Cuff Location : Left Arm; Cuff Size: Standard 01-22-2017 10:03-0400 Heart rate 76 /min Joshua Whitlock MD Work Phone: [employer].; [employer]. Comment on above: Pattern: Regular 01-22-2017 10:03-0400 Systolic blood pressure 122 mm[Hg] Joshua Whitlock MD Work Phone: [employer].; [employer]. Comment on above: Patient Position: Sitting; Cuff Location : Left Arm; Cuff Size: Standard 01-15-2016 11:02-0400 [facility] [facility].; [employer] 01-15-2016 11:02-0400 Body mass index (BMI) [Ratio] 36.58 kg/m2 Heather Lauren SHIPPING INSPECTOR [facility], Inc.; [employer], [employer]. 01-15-2016 11:02-0400 Body surface area Derived from formula 1.91 m2 Heather Lauren LPN [facility], Inc.; [employer]. 01-15-2016 11:02-0400 Body temperature 98.5 [degF] Heather Lauren [facility], Inc.; [employer]. Comment on above: Method: Tympanic 01-15-2016 11:02-0400 Body weight 90.72 kg Heather Lauren LPN [facility], Inc.; [employer]. 01-15-2016 11:02-0400 Diastolic blood pressure 70 mm[Hg] Heather Lauren [facility], [employer].; [employer]. Comment on above: Patient Position: Sitting; Cuff Location : Left Arm; Cuff Size: Large 01-15-2016 11:02-0400 Heart rate 71 /min Heather Lauren [facility], [employer].; [employer]. Comment on above: Pattern: Regular 01-15-2016 11:02-0400 Inhaled oxygen concentration 20 % Heather Lauren SHIPPING INSPECTOR [facility], Inc.; [employer]. Comment on above: Room air 01-15-2016 11:02-0400 Inhaled oxygen concentration 21 % Heather [facility].; [employer]. Comment on above: Room air 01-15-2016 11:02-0400 SaO2% (BldA) [Mass fraction] 98 % Heather Lauren [facility], [employer].; [employer] R[employer]. 01-15-2016 11:02-0400 Systolic blood pressure 103 mm[Hg] Heather Lauren SHIPPING INSPECTOR [employer] [facility], [employer].; [employer]. Comment on above: Patient Position: Sitting; Cuff Location : Left Arm; Cuff Size: Large 11-21-2015 09:35-0500 Body height 157.48 cm Joshua Whitlock MD Work Phone: [employer].; [employer]. 11-21-2015 09:35-0500 Body mass index (BMI) [Ratio] 36.21 kg/m2 Joshua Whitlock MD Work Phone: [employer].; [employer]. 11-21-2015 09:35-0500 Body surface area Derived from formula 1.9 m2 Joshua Whitlock MD Work Phone: [employer].; [employer]. 11-21-2015 09:35-0500 Body temperature 97.4 [degF] Joshua Whitlock MD Work Phone: [employer].; [employer]. 11-21-2015 09:35-0500 Body weight 89.81 kg Joshua Whitlock MD Work Phone: [employer].; [employer]. 11-21-2015 09:35-0500 Diastolic blood pressure 65 mm[Hg] Joshua Whitlock MD Work Phone: [employer].; [employer]. Comment on above: Patient Position: Sitting; Cuff Location : Left Arm; Cuff Size: Standard 11-21-2015 09:35-0500 Heart rate 84 /min Joshua Whitlock MD Work Phone: [email or web address]; [employer]. Comment on above: Pattern: Regular 11-21-2015 09:35-0500 Systolic blood pressure 116 mm[Hg] Joshua Whitlock MD Work Phone: [employer].; [employer]. Comment on above: Patient Position: Sitting; Cuff Location : Left Arm; Cuff Size: Standard 09-16-2015 14:17-0500 Body weight 89.36 kg Katya Almaraz LPN [employer].; [employer]. 09-16-2015 14:17-0500 Diastolic blood pressure 61 mm[Hg] Katya Almaraz LPN [employer].; [employer]. Comment on above: Patient Position: Sitting; Cuff Location : Left Arm; Cuff Size: Standard 09-16-2015 14:17-0500 Heart rate 79 /min Katya Almaraz LPN [employer].; [employer]. Comment on above: Pattern: Regular 09-16-2015 14:17-0500 Systolic blood pressure 107 mm[Hg] Katya Almaraz LPN [employer].; [employer]. Comment on above: Patient Position: Sitting; Cuff Location : Left Arm; Cuff Size: Standard 09-13-2015 10:35-0500 Body height 157.48 cm Joshua Whitlock MD Work Phone: [employer].; [employer]. 09-13-2015 10:35-0500 Body mass index (BMI) [Ratio] 35.48 kg/m2 Joshua Whitlock MD Work Phone: [employer].; [employer]. 09-13-2015 10:35-0500 Body surface area Derived from formula 1.89 m2 Joshua Whitlock MD Work Phone: [employer].; [employer]. 09-13-2015 10:35-0500 Body weight 88 kg Joshua Whitlock MD Work Phone: [employer].; [employer]. 09-13-2015 10:35-0500 Diastolic blood pressure 65 mm[Hg] Joshua Whitlock MD Work Phone: [employer].; [employer]. Comment on above: Patient Position: Sitting; Cuff Location : Left Arm; Cuff Size: Standard 09-13-2015 10:35-0500 Heart rate 86 /min Joshua Whitlock MD Work Phone: [employer].; [employer]. Comment on above: Pattern: Regular 09-13-2015 10:35-0500 Systolic blood pressure 100 mm[Hg] Joshua Whitlock MD Work Phone: [employer].; [employer]. Comment on above: Patient Position: Sitting; Cuff Location : Left Arm; Cuff Size: Standard 03-15-2015 10:31-0400 Body height 157.48 cm Joshua Whitlock MD Work Phone: [employer].; [employer]. 03-15-2015 10:31-0400 Body mass index (BMI) [Ratio] 33.65 kg/m2 Joshua Whitlock MD Work Phone: [employer].; [employer]. 03-15-2015 10:31-0400 Body surface area Derived from formula 1.85 m2 Joshua Whitlock MD Work Phone: [employer].; [employer]. 03-15-2015 10:31-0400 Body weight 83.46 kg Joshua Whitlock MD Work Phone: [employer].; [employer]. 03-15-2015 10:31-0400 Diastolic blood pressure 71 mm[Hg] Joshua Whitlock MD Work Phone: [employer].; [employer]. Comment on above: Patient Position: Sitting; Cuff Location : Left Arm; Cuff Size: Standard 03-15-2015 10:31-0400 Heart rate 82 /min Joshua Whitlock MD Work Phone: [employer].; [employer]. Comment on above: Pattern: Regular 03-15-2015 10:31-0400 Systolic blood pressure 105 mm[Hg] Joshua Whitlock MD Work Phone: [employer].; [employer]. Comment on above: Patient Position: Sitting; Cuff Location : Left Arm; Cuff Size: Standard 12-11-2014 11:02-0400 Body height 157.48 cm Heather Lauren SHIPPING INSPECTOR [employer].; [employer]. 12-11-2014 11:02-0400 Body mass index (BMI) [Ratio] 34.02 kg/m2 [facility].; [employer]. 12-11-2014 11:02-0400 Body surface area Derived from formula 1.85 m2 Heather Lauren LPN [facility], Inc.; [employer] [facility], [employer]. 12-11-2014 11:02-0400 Body weight 84.37 kg Heather Lauren LPN [facility], Inc.; [employer], [employer] 12-11-2014 11:02-0400 Diastolic blood pressure 63 mm[Hg] Heather Lauren LPN [facility], Inc.; [employer], [employer]. Comment on above: Patient Position: Sitting; Cuff Location : Left Arm; Cuff Size: Large 12-11-2014 11:02-0400 Heart rate 78 /min Heather Lauren LPN [facility], Inc.; [employer], [employer]. Comment on above: Pattern: Regular 12-11-2014 11:02-0400 Systolic blood pressure 103 mm[Hg] Heather Lauren LPN [facility], Inc.; [employer], [employer]. Comment on above: Patient Position: Sitting; Cuff Location : Left Arm; Cuff Size: Large 07-26-2013 14:44-0400 Body weight 86.64 kg Heather Lauren LPN [facility], Inc.; [employer] [facility], [employer]. 07-26-2013 14:44-0400 Diastolic blood pressure 69 mm[Hg] Heather Lauren LPN [facility], Inc.; [employer], [employer]. Comment on above: Patient Position: Sitting; Cuff Location : Left Arm; Cuff Size: Large 07-26-2013 14:44-0400 Heart rate 85 /min Heather Lauren LPN [facility], Inc.; [employer], [employer]. Comment on above: Pattern: Regular 07-26-2013 14:44-0400 Systolic blood pressure 101 mm[Hg] Heather Lauren LPN [facility], [employer].; [employer], [employer]. Comment on above: Patient Position: Sitting; Cuff Location : Left Arm; Cuff Size: Large 02-28-2013 13:47-0400 Body height 157.48 cm Heather Lauren SHIPPING INSPECTOR [facility], Inc.; [employer], [employer]. 02-28-2013 13:47-0400 Body mass index (BMI) [Ratio] 33.47 kg/m2 Heather Lauren [facility], [facility].; [facility], Inc. 02-28-2013 13:47-0400 Body surface area Derived from formula 1.84 m2 Heather Lauren SHIPPING INSPECTOR [facility], [facility].; [place] [employer]The [facility], Inc. 02-28-2013 13:47-0400 Body temperature 98.3 [degF] Heather Lauren [facility], [facility].; [employer], [employer]. Comment on above: Method: Tympanic 02-28-2013 13:47-0400 Body weight 83.01 kg Heather Lauren [facility], [facility].; [place] [employer] [facility], [employer]. 02-28-2013 13:47-0400 Diastolic blood pressure 79 mm[Hg] Heather Lauren [facility], Inc.; [employer], [employer]. Comment on above: Patient Position: Sitting; Cuff Location : Left Arm; Cuff Size: Large 02-28-2013 13:47-0400 Heart rate 69 /min Heather Lauren [facility], [facility].; [place] [employer] [facility], [employer]. Comment on above: Pattern: Regular 02-28-2013 13:47-0400 Inhaled oxygen concentration 20 % MaddiDora Lauren [facility], [facility].; [place] [employer] [facility], Inc. Comment on above: Room air 02-28-2013 13:47-0400 Inhaled oxygen concentration 21 % Heather Lauren [facility], Inc.; [employer] [facility], [employer]. Comment on above: Room air 02-28-2013 13:47-0400 SaO2% (BldA) [Mass fraction] 99 % MaddiDora Lauren [facility], [facility].; [place] [employer] [facility], [employer]. 02-28-2013 13:47-0400 Systolic blood pressure 115 mm[Hg] Heather Lauren [facility], [facility].; [employer], [employer]. Comment on above: Patient Position: Sitting; Cuff Location : Left Arm; Cuff Size: Large 06-27-2012 13:43-0400 Body height 157.48 cm Soumyajustus Michaels LPN [facility], [facility].; [employer], [employer]. 06-27-2012 13:43-0400 Body mass index (BMI) [Ratio] 33.38 kg/m2 Soumya Brando SALVADOR [facility], [facility].; [employer], [employer]. 06-27-2012 13:43-0400 Body surface area Derived from formula 1.84 m2 Soumya Michaels LPN [facility], Inc.; [employer]. 06-27-2012 13:43-0400 Body temperature 98.4 [degF] [facility] ShareThe [facility], [facility].; [employer]. Comment on above: Method: Tympanic 06-27-2012 13:43-0400 Body weight 82.78 kg Soumyajustus Michaels LPN [facility], [facility].; [employer]. 06-27-2012 13:43-0400 Diastolic blood pressure 74 mm[Hg] [facility] ShareThe [facility], [facility].; [employer]. Comment on above: Patient Position: Sitting; Cuff Location : Left Arm; Cuff Size: Standard 06-27-2012 13:43-0400 Heart rate 87 /min Soumyajustus Michaels LPN [place] [employer]The [facility], [facility].; [employer]. Comment on above: Pattern: Regular 06-27-2012 13:43-0400 Inhaled oxygen concentration 20 % Soumya Michaels LPN [place] [facility]The [facility], Inc.; [employer]. Comment on above: Room air 06-27-2012 13:43-0400 Inhaled oxygen concentration 21 % Soumya Michaels LPN [place] [facility], [facility].; [employer]. Comment on above: Room air 06-27-2012 13:43-0400 SaO2% (BldA) [Mass fraction] 97 % [facility] ShareThe [facility], [employer].; [employer]. 06-27-2012 13:43-0400 Systolic blood pressure 110 mm[Hg] Soumya Michaels LPN [place] [employer]The [facility].; [employer]. Comment on above: Patient Position: Sitting; Cuff Location : Left Arm; Cuff Size: Standard 11-26-2011 08:58-0500 Body temperature 97.7 [degF] Soumya Duncancalianayeli SHIPPING INSPECTOR [facility], Inc.; [employer]. Comment on above: Method: Tympanic 11-26-2011 08:58-0500 Body weight 82.67 kg Soumya Weeric [facility] ShareThe [facility], Inc.; [employer] 11-26-2011 08:58-0500 Diastolic blood pressure 75 mm[Hg] Soumya Duncaneric [facility] ShareThe [facility], Inc.; [employer]. Comment on above: Patient Position: Sitting; Cuff Location : Left Arm; Cuff Size: Standard 11-26-2011 08:58-0500 Heart rate 87 /min Soumya Weeric SHIPPING INSPECTOR [place] [facility]The [facility], Inc.; [employer]. Comment on above: Pattern: Regular 11-26-2011 08:58-0500 Inhaled oxygen concentration 20 % Soumya Dakotaeric [facility] ShareThe [facility], Inc.; [employer]. Comment on above: Room air 11-26-2011 08:58-0500 Inhaled oxygen concentration 21 % Soumya Weeric [facility] ShareThe [facility], Inc.; [employer]. Comment on above: Room air 11-26-2011 08:58-0500 SaO2% (BldA) [Mass fraction] 96 % Soumya Weeric [facility] ShareThe [facility], Inc.; [employer] 11-26-2011 08:58-0500 Systolic blood pressure 127 mm[Hg] Soumya Weeric SALVADOR [place] [employer]. Comment on above: Patient Position: Sitting; Cuff Location : Left Arm; Cuff Size: Standard 09-25-2011 12:57-0500 Body height 157.48 cm [facility] ShareThe [facility], Inc.; [employer]. 09-25-2011 12:57-0500 Body mass index (BMI) [Ratio] 33.1 kg/m2 [facility]The [facility], [employer].; [employer]. 09-25-2011 12:57-0500 Body surface area Derived from formula 1.83 m2 Heather Lauren LPN [employer] [facility], [employer].; [employer]. 09-25-2011 12:57-0500 Body weight 82.1 kg Heather Lauren LPN [employer] [facility], [facility].; [employer]. 09-25-2011 12:57-0500 Diastolic blood pressure 77 mm[Hg] Heather Lauren LPN [employer] [facility], [employer].; [employer]. Comment on above: Patient Position: Sitting; Cuff Location : Left Arm; Cuff Size: Large 09-25-2011 12:57-0500 Heart rate 73 /min Heather Lauren LPN [employer] [facility], [employer].; [employer]. Comment on above: Pattern: Regular 09-25-2011 12:57-0500 Systolic blood pressure 110 mm[Hg] Heather Lauren LPN [employer] [facility], [employer].; [employer]. Comment on above: Patient Position: Sitting; Cuff Location : Left Arm; Cuff Size: Large 12-29-2010 10:02-0400 Body weight 76.66 kg Joshua Whitlock MD Work Phone: [employer].; [employer]. 12-29-2010 10:02-0400 Diastolic blood pressure 73 mm[Hg] Joshua Whitlock MD Work Phone: [employer]. Comment on above: Patient Position: Sitting; Cuff Location : Left Arm; Cuff Size: Standard 12-29-2010 10:02-0400 Heart rate 87 /min Joshua Whitlock MD Work Phone: [employer].; [employer]. Comment on above: Pattern: Regular 12-29-2010 10:02-0400 Systolic blood pressure 117 mm[Hg] Joshua Whitlock MD Work Phone: [employer].; [employer]. Comment on above: Patient Position: Sitting; Cuff Location : Left Arm; Cuff Size: Standard 09-15-2010 13:01-0500 Body temperature 97.3 [degF] Joshua Whitlock MD Work Phone: [email or web address]; [employer]. Comment on above: Method: Tympanic 09-15-2010 13:01-0500 Body weight 74.84 kg Joshua Whitlock MD Work Phone: [email or web address]; [email or web address] 09-15-2010 13:01-0500 Diastolic blood pressure 77 mm[Hg] Joshua Whitlock MD Work Phone: [email or web address]; [employer]. Comment on above: Patient Position: Sitting; Cuff Location : Left Arm; Cuff Size: Standard 09-15-2010 13:01-0500 Heart rate 89 /min Joshua Whitlock MD Work Phone: [email or web address]; [email or web address] Comment on above: Pattern: Regular 09-15-2010 13:01-0500 Systolic blood pressure 123 mm[Hg] Joshua Whitlock MD Work Phone: [email or web address]; [employer]. Comment on above: Patient Position: Sitting; Cuff Location : Left Arm; Cuff Size: Standard Encounters Encounter Date Encounter Type Care Provider Facility Start: 07-10-2025 ambulatory Alma Rosa Jones [facility] ty:[facility] Start: 07-04-2025 End: 07-04-2025 ambulatory [facility] Start: 06-26-2025 End: 06-26-2025 ambulatory PRESTON ARMAS [facility] Start: 06-26-2025 End: 06-26-2025 Subsequent hospital visit by physician Preston Armas MD Work Phone: [facility] End[facility] Comment on above: Pancreatic mass Start: 06-19-2025 End: 06-19-2025 Patient encounter procedure Alma Rosa DOCKERY [facility] Work Phone: Start: 06-19-2025 End: 06-19-[address] Joshua Whitlock MD Work Phone: -[facility] Start: 06-18-2025 End: 06-18-2025 Emergency department patient visit Dr. Joshua Whitlock MD Work Phone: -Emergency Department Work Phone: Start: 06-15-2025 Non-patient / Non-visit Dr. Tika Yanez [facility] Work Phone: Start: 06-15-2025 ambulatory Alma Rosa Jones Facili ty:[facility] Start: 06-14-2025 Non-patient / Non-visit Killianalex Schmid asim DO [facility] Start: 06-14-2025 Non-patient / Non-visit Dr. Tika Yanez [facility] Work Phone: Start: 06-13-2025 ambulatory Killian Wallace [facility] Start: 06-13-2025 End: 06-15-2025 Evaluation and management of inpatient Dr. Maynor Blanton DO -Medical Surgical 3 Work Phone: Start: 05-28-2025 End: 05-28-2025 Periodic preventive med est patient 40-64yrs Joshua Whitlock MD Work Phone: [employer] Start: 05-28-2025 End: 05-28-2025 Physical examination Joshua Whitlock MD Work Phone: [email or web address]; [employer] Start: 05-28-2025 Physical examination Lili Downey LPN [employer] Start: 03-08-2025 End: 03-12-2025 Orders Joshua Whitlock MD Work Phone: [employer] Start: 03-08-2025 End: 03-08-2025 Medication Joshua Whitlock MD Work Phone: [employer] Start: 02-07-2025 End: 02-07-2025 Office outpatient visit 15 minutes Joshua Whitlock MD Work Phone: [employer] Start: 02-07-2025 Review Joshua Whitlock MD Work Phone: [employer] Start: 11-30-2024 End: 11-30-2024 Historical Summary Joshua Whitlock MD Work Phone: [email or web address] Start: 10-06-2024 End: 10-06-2024 Medication Joshua Whitlock MD Work Phone: [employer] Start: 09-25-2024 End: 09-25-2024 ambulatory Joshua Whitlock Facility:[facility] Start: 09-13-2024 End: 09-13-2024 Office outpatient visit 15 minutes Joshua Whitlock MD Work Phone: [email or web address] Start: 09-06-2024 End: 09-06-2024 ambulatory [facility] Start: 09-06-2024 End: 09-06-2024 ambulatory Joshua Whitlock Facility:[facility] Start: 08-11-2024 End: 08-11-2024 Patient encounter procedure Joshua Whitlock MD Work Phone: [employer] Start: 08-11-2024 End: 08-11-2024 Periodic preventive med est patient 40-64yrs Joshua Whitlock MD Work Phone: [employer] Start: 08-11-2024 End: 08-11-2024 Physical examination Joshua Whitlock MD Work Phone: [email or web address]; [employer] Start: 07-31-2024 End: 08-01-2024 Orders Joshua Whitlock MD Work Phone: [employer] Start: 07-12-2024 End: 07-13-2024 Orders Joshua Whitlock MD Work Phone: [employer] Start: 07-12-2024 Review Joshua Whitlock MD Work Phone: [facility] Start: 11-11-2023 End: 11-11-[address] Joshua Whitlock Work Phone: [facility] Work Phone: Start: 11-11-2023 End: 11-11-[address] Joshua Whitlock Work Phone: [facility]Laboratory, Specimen Work Phone: Start: 10-25-2023 Review Joshua Whitlock MD Work Phone: [facility] Start: 10-25-2023 End: 10-25-2023 Office outpatient visit 15 minutes Joshua Whitlock MD Work Phone: [employer] Start: 10-25-2023 End: 10-25-2023 Physical examination Joshua Whitlock MD Work Phone: [email or web address]; [facility] Start: 10-18-2023 End: 10-18-2023 Non-patient / Non-visit Dr. Joshua Whitlock Work Phone: [facility] Work Phone: Start: 10-18-2023 End: 10-18-[address] Joshua Whitlock Work Phone: [facility] Work Phone: Start: 10-18-2023 End: 10-18-[address] Joshua Whitlock Work Phone: [facility] Work Phone: Start: 04-02-2023 End: 04-02-2023 Office outpatient visit 15 minutes Joshua Whitlock MD Work Phone: [facility] Start: 10-14-2022 End: 10-14-2022 Office outpatient visit 15 minutes Joshua Whitlock MD Work Phone: [facility] [employer] Start: 09-15-2022 End: 09-15-2022 Office outpatient visit 15 minutes Joshua Whitlock MD Work Phone: [facility] [employer] Start: 06-30-2022 End: 06-30-2022 Medication Joshua Whitlock MD Work Phone: [facility] Start: 06-04-2022 End: 06-03-2022 Erroneous Entry Joshua Whitlock MD Work Phone: [email or web address] Start: 06-04-2022 End: 06-04-2022 Patient encounter procedure Joshua Whitlock MD Work Phone: [email or web address]; [facility] Start: 06-04-2022 End: 06-04-2022 Periodic preventive med est patient 40-64yrs Joshua Whitlock MD Work Phone: [facility] [employer] Start: 04-21-2022 End: 04-21-2022 Orders Joshua Whitlock MD Work Phone: [email or web address] Start: 04-07-2022 End: 04-07-2022 Office outpatient visit 10 minutes Joshua Whitlock MD Work Phone: [email or web address] Start: 12-25-2020 End: 12-25-2020 Medication Joshua Whitlock MD Work Phone: [email or web address] Start: 12-24-2020 End: 12-24-2020 Office outpatient visit 15 minutes Joshua Whitlock MD Work Phone: [email or web address] Start: 12-20-2020 End: 12-20-2020 Office outpatient visit 15 minutes Joshua Whitlock MD Work Phone: [email or web address] Start: 02-07-2020 End: 02-07-2020 Office outpatient visit 15 minutes Joshua Whitlock MD Work Phone: [email or web address] Start: 02-07-2020 End: 02-07-2020 Telephone follow-up Joshua Whitlock MD Work Phone: [email or web address] Start: 02-03-2020 End: 02-03-2020 Emergency department patient visit DENNY [facility] Start: 01-09-2019 End: 01-09-2019 Orders Joshua Whitlock MD Work Phone: [email or web address] Start: 01-06-2019 End: 01-06-2019 Office outpatient visit 15 minutes Joshua Whitlock MD Work Phone: [email or web address] Start: 06-07-2018 End: 06-07-2018 Orders Joshua Whitlock MD Work Phone: [facility] Start: 05-31-2018 End: 05-31-2018 Office outpatient visit 15 minutes Joshua Whitlock MD Work Phone: [facility] Start: 04-28-2018 End: 04-28-2018 Telephone follow-up Joshua Whitlock MD Work Phone: [facility] Start: 01-22-2017 End: 01-22-2017 Office outpatient visit 15 minutes Joshua Whitlock MD Work Phone: [facility] [employer] Start: 01-15-2016 End: 01-15-2016 Office outpatient visit 15 minutes Joshua Whitlock MD Work Phone: [employer] Start: 11-21-2015 End: 11-21-2015 Medication Joshua Whitlock MD Work Phone: [facility] [employer] Start: 11-21-2015 End: 11-21-2015 Office outpatient visit 15 minutes Joshua Whitlock MD Work Phone: [email or web address] Start: 09-16-2015 End: 09-16-2015 Office outpatient visit 15 minutes Joshua Whitlock MD Work Phone: [facility] [employer] Start: 09-13-2015 End: 09-13-2015 Office outpatient visit 15 minutes Joshua Whitlock MD Work Phone: [facility] [employer] Start: 08-19-2015 End: 08-19-2015 Medication Joshua Whitlock MD Work Phone: [facility] Start: 03-15-2015 End: 03-15-2015 Office outpatient visit 15 minutes Joshua Whitlcok MD Work Phone: [facility] Start: 03-15-2015 End: 03-15-2015 Pre-operative examination, unspecified Joshua Whitlock MD Work Phone: [facility] Start: 12-11-2014 End: 12-11-2014 Orders Joshua Whitlock MD Work Phone: [facility] Start: 12-11-2014 End: 12-11-2014 Office outpatient visit 15 minutes Joshua Whitlock MD Work Phone: [facility] [employer] Start: 02-12-2014 End: 02-12-2014 Medication Joshua Whitlock MD Work Phone: [facility] [employer] Start: 02-12-2014 End: 02-12-2014 Medication Joshua Whitlock MD Work Phone: [facility] [employer] Start: 01-23-2014 End: 01-23-2014 Medication Joshua Whitlock MD Work Phone: [facility] [employer] Start: 10-30-2013 End: 10-30-2013 Medication Joshua Whitlock MD Work Phone: [facility] [employer] Start: 07-26-2013 End: 07-26-2013 Patient encounter procedure Joshua Whitlock MD Work Phone: [email or web address] Start: 07-26-2013 End: 07-26-2013 Pre-operative examination, unspecified Joshua Whitlock MD Work Phone: [email or web address]; [facility] Start: 02-28-2013 End: 02-28-2013 Patient encounter procedure Joshua Whitlock MD Work Phone: [facility] Start: 12-23-2012 End: 12-23-2012 Medication Joshua Whitolck MD Work Phone: [facility] [employer] Start: 06-27-2012 End: 06-27-2012 Patient encounter procedure Joshua Whitlock MD Work Phone: [facility] [employer] Start: 04-01-2012 End: 04-01-2012 Medication Joshua Whitlock MD Work Phone: [employer] Start: 12-29-2011 End: 12-29-2011 Medication Joshua Whitlock MD Work Phone: [facility] [employer] Start: 11-26-2011 End: 11-26-2011 Patient encounter procedure Joshua Whitlock MD Work Phone: [facility] [employer] Start: 10-06-2011 End: 10-06-2011 Orders Joshua Whitlock MD Work Phone: [employer] Start: 09-25-2011 End: 09-25-2011 Patient encounter procedure Joshua Whitlock MD Work Phone: [facility] [employer] Start: 07-01-2011 End: 07-01-2011 Medication Joshua Whitlock MD Work Phone: [employer] Start: 03-30-2011 End: 03-30-2011 Medication Joshua Whitlock MD Work Phone: [facility] [employer] Start: 01-05-2011 End: 01-05-2011 Medication Joshua Whitlock MD Work Phone: [employer] Start: 12-29-2010 End: 12-29-2010 Patient encounter procedure Joshua Whitlock MD Work Phone: [employer] Start: 11-21-2010 End: 11-21-2010 Medication Joshua Whitlock MD Work Phone: [employer] Start: 11-21-2010 End: 11-21-2010 Historical Summary Joshua Whitlock MD Work Phone: [employer] Start: 11-03-2010 End: 11-03-2010 Medication Joshua Whitlock MD Work Phone: [employer] Start: 09-26-2010 End: 09-26-2010 Medication Joshua Whitlock MD Work Phone: [employer] Start: 09-16-2010 End: 09-16-2010 Laboratory examination ordered as part of a routine general medical examination Naye Valdez Work Phone: [facility] [employer] Start: 09-16-2010 End: 09-16-2010 Orders Joshua Whitlock MD Work Phone: [facility] [employer] Start: 09-16-2010 End: 09-16-2010 Medication Joshua Whitlock MD Work Phone: [employer] Start: 09-15-2010 End: 09-15-2010 Patient encounter procedure Joshua Whitlock MD Work Phone: [facility] Start: 09-15-2010 End: 09-15-2010 Routine gynecological examination Joshua Whitlock MD Work Phone: [facility]; [facility] Start: 07-14-2010 End: 07-14-2010 Medication Joshua Whitlock MD Work Phone: [facility]. Start: 07-11-2010 End: 07-11-2010 Nursing evaluation of patient and report Joshua Whitlock MD Work Phone: [facility] Admission to [facility], [facility].; [facility], [facility] Patient encounter procedure Gracekrishna Garcia MA [facility], [facility] Patient encounter procedure [facility], [facility].; [facility], [facility] Patient encounter procedure Flakito Miguel A [facility].; [facility], [facility]. Patient encounter procedure Flakito Miguel A [facility].; [facility], [facility]. Patient encounter procedure Flakito Miguel A [facility].; [facility], [facility] Physical examination Flakito Miguel A SHIPPING INSPECTOR [facility], [facility].; [facility], [facility]. Physical examination Flakito [facility], [facility]. Physical examination Flakito [facility], [facility].; [facility], [facility] Physical examination Joshua rhodes MD Work Phone: [facility].; [place] [facility] Routine gynecologica l examination Joshua Whitlock MD Work Phone: [facility].; [facility], [facility] Procedures Date Procedure Procedure Detail [...] Sacha Whitlock MD Work Phone: Start: 06-15-2025 Itlzx-5-Cpavjcsimhl measurement Dr. Andrea Whitlock MD Work Phone: Comment on above: BFKW Electrochemiluminescen ce Immunoassay(ECLIA)Values obtained with different assay methods or kits cannotbe used interchangeably. Results cannot be interpreted asabsolute evidence of the presence or absence of malignantdisease.This test is not interpretable in females.Performed at: [address] [id number] Director: Víctor Chen PhD, Phone: [phone] Start: 06-15-[address] Joshua [...] from Breast screening declined) Flakito Miguel A SHIPPING INSPECTOR Cataract extraction and insertion of intraocular lens Grace Garcia MA Comment on above: 2006 Cataract extraction and insertion of intraocular lens Flakito Miguel A SHIPPING INSPECTOR Comment on above: 2006 section Grace marie MA Comment on above: 2006 Dr Marrero , heavy bleeding section Flakito Maso n SHIPPING INSPECTOR Comment on above: 2006 Dr Marrero , heavy bleeding plantar fasciitis Grace Zapien od, MA plantar fasciitis Flakito Mas on SHIPPING INSPECTOR Total replacement of right knee joint Joshua Whitlock MD Work Phone: Plan of Treatment Date Care Activity Detail Author Start: 2043 RSV Immunization for Adults (1 - 1-dose 75+ series) RSV Immunization for Adults (1 - 1-dose 75+ series) [facility] Start: 02-02-2030 DTaP/Tdap/Td Vaccines (2 - Td or Tdap) DTaP/Tdap/Td Vaccines (2 - Td or Tdap) [facility] Start: 06-26-2025 End: 06-26-2025 Esophagoscopy flexible transoral ultrasound exam ESOPHAGOSCOPIC ULTRASOUND EXAM Pancreatic mass 06/26/2025 10:05 AM EDT [facility] Gastroenterology Start: 06-18-2025 [facility] Start: 06-15-2025 Patient discharge [facility] Start: 06-13-2025 Following clinical pathway protocol [facility] Start: 06-13-2025 Ambulation without limitation [facility] Start: 06-13-2025 Assessment of risk of venous thromboembolism [facility] Start: 06-13-2025 Insertion of catheter into peripheral vein [facility] Start: 06-13-2025 Measuring intake and output [facility] Start: 06-13-2025 Oxygen therapy [facility] Start: 06-13-2025 Providing care according to standard [facility] Start: 06-13-2025 Referral to gastroenterology service [facility] Start: 06-13-2025 Referral to service [facility] Start: 06-13-2025 [facility] Start: 06-13-2025 Hospital admission, emergency, from emergency room, medical nature [facility] Start: 06-13-2025 Verification routine [facility] Start: 06-13-2025 Admission procedure [facility] Start: 06-04-2025 COVID-19 Vaccine () COVID-19 Vaccine () [facility] Start: 06-04-2025 Influenza vaccination Influenza Vaccine (#1) [facility] Start: 05-28-2025 Patient encounter procedure [employer] Start: 05-04-2025 Lipid panel LIPID PANEL (47097) Start: 04-May-2025 14:49-04:00 Request [facility] Start: 05-04-2025 Comprehensive metabolic panel CMP w/ GFR* (74408) Start: 04-May-2025 14:49-04:00 Request [facility] [employer] Start: 08-11-2024 Patient encounter procedure [employer] Start: 07-31-2024 Lipid panel LIPID PANEL (33345) Start: 31-Jul-2024 Request [facility] Start: 07-31-2024 Comprehensive metabolic panel [employer] Start: 07-31-2024 Nursing evaluation of patient and report Medical; Nurse visit - BW sfb [employer]. Start: 31-Jul-2024 08:10-04:00 ROOM, PROCEDURE (DRAW) Appointment Request [employer] Start: 10-25-2023 Patient encounter procedure Medical; EXTENDED RTN - pre-op knee surg 11/10 [facility] Start: 25-Oct-2023 8:20 MD Joshua Whitlock [facility] Start: 2018 Zoster Vaccines (1 of 2) Zoster Vaccines (1 of 2) [facility] Start: 05-31-2018 End: 05-31-2018 Mri any jt lower extrem w/o contrast matrl Ankle,Left MRI W/O Contrast Date: 31-May-2018 [facility] Start: 2008 Screening for malignant neoplasm of breast Mammogram [facility] Start: 1998 Screening for malignant neoplasm of cervix [facility] Start: 1989 Screening for malignant neoplasm of cervix Pap Smear [facility] Start: 1987 Hepatitis B Vaccines (1 of 3 - 19+ 3-dose series) Hepatitis B Vaccines (1 of 3 - 19+ 3-dose series) [facility] Start: 1987 Pneumococcal Vaccine: 50+ Years (1 of 2 - PCV) Pneumococcal Vaccine: 50+ Years (1 of 2 - PCV) [facility] Start: 1986 Diabetes mellitus screening Diabetes Screening [facility] Start: 1986 Hepatitis C screening Hepatitis C Screening [facility] Start: 1980 Depression Monitoring Depression Monitoring [facility] Start: 1969 MMR Vaccines (1 of 1 - Standard series) MMR Vaccines (1 of 1 - Standard series) [facility] Start: 1968 HIV screening HIV Screening [facility] Start: 1968 Lipid panel Lipid Panel [facility] Start: 1968 Screening for malignant neoplasm of colon [facility] Fmkcv-3-yydglcikquu. tumo r marker [Units/volume] in Serum or Plasma [facility] Cancer Ag 19-9 [Units/volume] in Serum or Plasma [facility] Carcinoembryonic Ag [Mass/volume] in Serum or Plasma [facility] Fine needle aspiration [facility] Work Phone: Comment on above: Release Upon Ordering for 1 Occurrences starting 06/26/2025, 1 completed Patient Education Abdominal Pain Medicine for Pain [facility] Work Phone: Immunizations Immunization Date Immunization Notes Care Provider Fa ralph 02-03-2020 tetanus toxoid, redu jennifer diphtheria toxoid, and acellular pertussis vaccine, adsorbed Joshua Whitlock MD Work Phone: [facility] Payers Date Payer Category Payer Private Health Insurance [id number] 2025 Commercial Managed C are - HMO [employer] [id number] 2025 Unknown [id number] 2024 Private Health Insurance [id number] 2024 Self-pay [id number] 1970 Unknown [id number] 1970 Unknown [id number] .[id number] Unknown [id number] Unknown [employer] PLAN Unknown [id number] .[id number] Unknown [id number] .[id number] Unknown [id number] .2.462 Unknown [id number] .2.462 Unknown [id number] .[id number] .2.462 Unknown [id number] .2.462 Unknown [id number] .2.462 Unknown [id number] .2.462 Unknown [id number] .2.462 Unknown [id number] .2.462 Unknown [id number] .2.462 Unknown [id number] .2.462 Social History Date Type Detail Facility Start: 06-26-2025 End: 06-04-2022 Alcohol Use Alcohol Use [employer]; [facility] Exercise History: Exercise Histo ry: ; Light. [employer]; [email or web address] Tobacco Use: Tobacco Use: ; S mokes < 1 pack of cigarettes per day. [employer]; [facility] [employer] Start: 1970 Female [facility] Smokes < 1 pack of cigarettes per day [employer]; [email or web address] Work Phone: Start: 06-13-2025 End: 06-26-2025 Tobacco smoking status [facility] Smokes tobacco daily (finding) [facility] Start: 06-26-2025 Not [facility] Start: 06-15-2025 End: 06-19-2025 Tobacco smoking status [facility] Current Light tobacco smoker [facility] Start: 06-26-2025 Tobacco use and exposure Smokeless tobacco non-user [facility] Start: 06-26-2025 Alcoholic beverage intake Ex-drinker (finding) [facility] Start: 1970 Sex assigned at Not on file [facility] Start: 05-04-2022 Sex Female (finding) [facility] Medical Equipment Procedure Code Equipment Code Equipment Origin al Text Equipment Identifier Dates ERCP (endoscopic retrograde cholangiopancreatog [place]) Polymeric biliary stent, non-bioabsorbable [id number] FDA Start: 06-14-2025 ([id number]) Metal-backed patella prosthesis ()[id number] FDA Start: 09-25-2024 ([id number]) Coated knee femu r prosthesis ()[id number] FDA Start: 09-25-2024 ([id number]) Coated knee tibi a prosthesis [id number] FDA Start: 09-25-2024 ([id number]) Tibial insert [id number] FDA Start: 09-25-2024 Goals Date Patient Goal Desired Activity /State Functional Status Date Assessment Result Facility 06-15-2025 Functional status Bathroom Privilege [facility] Work Phone: Mental Status Date Assessment Result Facility 06-18-2025 Cognitive function Level Of Cons ciousness Awake;Alert;Appropriate;Follow s Commands [facility] Work Phone: 06-15-2025 Cognitive function Level Of Cons ciousness Awake;Alert;Appropriate;Follow s Commands [facility] Work Phone: 06-15-2025 Cognitive function Voice/Name [facility] Work Phone: Clinical Notes 09-15-2024 to 06-26-2025 [...] independent steady gait. Claudia [facility] Name: Corie Lugo Procedure Date: 06/26/2025 9:33 AM Gender: Female Date of : 1970 Age: 54 Admit Type: Outpatient Note Status: Finalized Endoscopist: Preston Armas MD, [id number] Procedure: Upper EUS Indications: Suspected mass in [...] immediate complications. Procedure Code(s): --- Professional --- 72898, Esophagogastroduodenoscopy, flexible, transoral; with transendoscopic ultrasound-guided intramural or transmural fine needle aspiration/biopsy(s), (includes endoscopic ultrasound examination limited to the esophagus, stomach or duodenum, and adjacent structures) --- Technical --- 58146, Esophagogastroduodenoscopy, flexible, transoral; with transendoscopic ultrasound-guided intramural [...] digestive tract CPT copyright 2021 [employer] [place] [employer]. All rights reserved. The codes documented in this report are preliminary and upon cost engineer review may be revised to meet current compliance requirements. Attending Participation: I personally performed the entire procedure. Preston Armas MD 06/26/2025 11:04:13 AM This report has been signed electronically. Number of Addenda: 0 Note Initiated On: 06/26/2025 9:33 AM documented in this encounter [facility] 06-26-2025 Nurse Note Pt report her pain is 1/10. Ambulated to rest room with independent steady gait. Claudia Dunn RN [facility] 06-26-2025 Note Patient: Corie Quiñones er Procedure Summary Date: 06/26/25 Room / Location: [facility] / [facility] Gastroenterology Anesthesia Start: 1004 Anesthesia Stop: 1052 [...] once all PACU criteria has been met. [facility] 06-26-2025 Note Patient: Corie Quiñones er Procedure Summary Date: 06/26/25 Room / Location: [facility] / [facility] Gastroenterology Anesthesia Start: 1004 Anesthesia Stop: 105 [...] of surgery or procedure by , SABINO respiratory director proxy staff ([id number]) I completed my handoff to the receiving clinician during which we: 1. Identified the patient 2. Identified the responsible provider 3. Reviewed the pertinent medical history 4. Discussed the surgical course 5. Reviewed intra-op anesthesia management and issues during anesthesia 6. Set expectations for post-procedure period 7. Allowed opportunity for questions and acknowledgement of understanding. [facility] 06-26-2025 History and physical note Images from [...] 1 tablet. 06/18/25 Yes Historical Provider, pancrelipase, Sij-Lpos-Wgtz, (Creon) 87904-512975 units capsule delayed-release particles capsule Dkimsd-Chpzttaf-Qfiztwv (Creon) 36,000-114,000- 180,000 unit capsule,delayed release(DR/EC) Active [...] Preston Armas MD [5] No Known Allergies [employer] Phone: 06-26-2025 Note GASTROENTEROLOGY PRE PROCEDURE H&P [...] 1 tablet. 06/18/25 Yes Historical Provider, pancrelipase, Vym-Kwif-Axhv, (Creon) 53065-203091 units capsule delayed-release particles capsule Edsjzg-Adkuofsj-Ksxjntt (Creon) 36,000-114,000- 180,000 unit capsule,delayed release(DR/EC) Active [...] 10 mL Int (more content not included)... [facility] 06-26-2025 History and physical note Images from [...] 1 tablet. 06/18/25 Yes Historical Provider, pancrelipase, Knr-Wnbm-Uelw, (Creon) 12549-331446 units capsule delayed-release particles capsule Zvxdwy-Bnflhehu-Wpffvro (Creon) 36,000-114,000- 180,000 unit capsule,delayed release(DR/EC) Active [...] No Known Allergies documented in this encounter [facility] 06-26-2025 Note [facility] Patient Name: Corie Lugo Procedure Date: 06/26/2025 9:33 AM Gender: Female Date of : 1970 Age: 54 Admit Type: Outpatient Note Status: Finalized Endoscopist: Preston Armas MD, [id number] Procedure: Upper EUS Indications: Suspected mass in [...] Alma Rosa Doty (more content not included)... [facility] 06[facility]26-2025 [facility] Name: Corie Lugo Procedure Date: 06/26/2025 9:33 AM Gender: Female Date of : 1970 Age: 54 Admit Type: Outpatient Note Status: Finalized Endoscopist: Preston Armas MD, [id number] Procedure: Upper EUS Indications: Suspected mass in [...] immediate complications. Procedure Code(s): --- Professional --- 76008, Esophagogastroduodenoscopy, flexible, transoral; with transendoscopic ultrasound-guided intramural or transmural fine needle aspiration/biopsy(s), (includes endoscopic ultrasound examination limited to the esophagus, stomach or duodenum, and adjacent structures) --- Technical --- 59415, Esophagogastroduodenoscopy, flexible, transoral; with transendoscopic ultrasound-guided intramural [...] digestive tract CPT copyright 2 [employer]. All rights reserved. The codes documented in this report are preliminary and upon cost engineer review may be revised to meet current compliance requirements. Attending Participation: I personally performed the entire procedure. Preston Armas MD 06/26/2025 11:04:13 AM This report has been signed electronically. Number of Addenda: 0 Note Initiated On: 06/26/2025 9:33 AM [facility] 06-26-2025 Note Patient: Corie portillo Procedure Information Date/Time: 06/26/25 0900 Procedure: ESOPHAGOSCOPIC ULTRASOUND EXAM - 90 minutes please Location: [place] [address] / [facility] Gastroenterology Providers: Preston Armas MD Relevant Problems [...] Requests [1] No family history on file. [facility] 06-18-2025 Radiology Diagnostic study note [facility] Imaging Services [address] [place] [address] Gallbladder MR#: [id number] Acct: [id number] Name: CORIE LUGO Rep #: [id number] : 1970 F 54 From: Kunal Watkins MD PCP: Dr. Joshua Whitlock MD Status: REG ER Study:Gallbladder Date of Exam: 06/18/25 Exam# [id number] Ordering Dr: Ross Silva MD PROCEDURE: GALLBLADDER [...] and pelvis were further details. Reading Location: [facility] CC: Dr. Bertha Silva MD; Dr. Joshua Whitlock MD ~ Smelter Charger: Signed [facility] 06-18-2025 Radiology Diagnostic study note [facility] Imaging Services [address] [place] [address] Chest PA and Lateral MR#: [id number] Acct: [id number] Name: CORIE LUGO Rep #: [id number] : 1970 F 54 From: Ochoa Harris MD PCP: Dr. Joshua Whitlock MD Status: REG ER Study:Chest PA and Lateral Date of Exam: 06/18/25 Exam# [id number] Ordering Dr: Ross Silva MD PROCEDURE: CHEST PA AND LATERAL 06/18/2025 REASON FOR EXAM: COUGH, RECENT HOSPITALIZATION TECHNIQUE: Procedure Code: RADCXR Modality: DX Procedure: CHEST PA AND LATERAL COMPARISON: 06/16/2021. FINDINGS: The heart is normal in size. The lungs are clear. No acute osseous abnormalities. RAD/Chest PA and Lateral IMPRESSION: NO ACUTE FINDINGS. Reading Location: [facility] CC: Dr. Bertha Silva MD; Dr. Joshua Whitlock MD ~ Smelter Charger: Signed [facility] 06-18-2025 Radiology Diagnostic study note [facility] Imaging Services [address] [place] [address] Abdomen/Pelvis W IV Cont ONLY MR#: [id number] Acct: [id number] Name: CORIE LUGO Rep #: [id number] : 1970 F 54 From: Kunal Watkins MD PCP: Dr. Joshua Whitlock MD Status: REG ER Study:Abdomen/Pelvis W IV Cont ONLY Date of E xam: 06/18/25 Exam# [id number] Ordering Dr: Ross Silva MD PROCEDURE: ABDOMEN/PELVIS [...] lymph node measures 8.5 mm. Reading Location: [facility] CC: Dr. Bertha Silva MD; Dr. Joshua Whitlock MD ~ Smelter Charger: Signed [facility] 06-15-2025 Note [facility] Medical Records Department [address] [place] [address] Discharge Summary 06/15/25 1214 MR#: [id number] Acct: [id number] Name: CORIE LUGO Rep #: [id number] : 1970 54 From: Tiak Casey DO PCP: Dr. Joshua Whitlock MD Status:DIS IN Location: [id number] Providers Date of Admission: 06/13/25 Date of [...] female who presented to emergency department at [facility] on 06/13/2025 with abdominal pain and jaundice. [...] in the afternoon (more content not included)... [facility] 06-14-2025 Consult note Note Date/Time June 14, 2025 9:03pm [facility] Medical Records Department [address] [place] [address] Anesthesia Postop Eval II 06/14/252101 MR#: [id number] Acct: [id number] Name: CORIE LUGO DONOVAN Rep #:[id number] 2 : 1970 54 From: Syd Dwyer MD PCP: Dr. Joshua Whitlock MD Status:ADM IN Y Race: C Location: SD3 MS309 -1 Anesthesia Postop Eval I Sum [...] MD Cosigner Signature: Date CC: ~ Signed [facility] Work Phone: 1(526) 191-397809-11-2025 Progress note Author Tika Casey [facility] Note Date/Time June 14, 2025 7:24pm [facility] Medical Records Department [address] [place] [address] Progress Note - Hospitalist 06/14/25 0847 MR#: [id number] Acct: [id number] Name: CORIE LUGO DONOVAN Rep #:[id number] : 1970 54 From: Tika Casey DO PCP: Dr. Joshua Whitlock MD Status:ADM IN Location: [place] [address]-1 Reason for Visit Chief Complaint: Abdominal pain [...] % (Auto) 60.7, Lymph % (Auto) 27.7, Gladwin %(Auto) 8.7, Eos % (Auto) 1.8, Baso [...] Clarity Clear, Urine pH 5.0, Ur Specific [place] 1.020, Urine Protein 100 H, Urine Glucose [...] intrahepatic biliary ducts. Normal gallbladder. Reading [facility] Abdomen/Pelvis CT 06/13/25 15:40 IMPRESSION: Dilated intrahepatic biliary ducts in the common bile duct down to the head of the pancreas were I suspect a 14 mm mass in the head of the pancreas. Findings suggestive of small gallstones. Reading Location: [facility] Physical Exam Const alert, oriented x3, no [...] Cosigner Signature (if applicable): CC: ~ Signed [facility] Work Phone: 1(403) 929-858509-11-2025 Radiology Diagnostic study note [facility] Imaging Services [address] [place], [place] [address] ERCP Biliary/Pancreas MR#: [id number] Acct: [id number] Name: CORIE LUGO DONOVAN Rep #: [id number] : 1970 F 54 From: Jose Groves MD PCP: Dr. Joshua Whitlock MD Status: ADM IN Study:ERCP Biliary/Pancreas Date of Exam: 06/14/25 Exam# [id number] Ordering Dr: Herrera Wallace DO EXAM: ERCP [...] suspected pancreatic head mass lesion. Reading Location: [facility] CC: Dr. Joshua Whitlock MD; Killian Wallace, DO ~ Smelter Charger: Signed [facility]09-11-2025 Consult note Author Syd Dwyer [facility] Note Date/Time June 14, 2025 7:12pm [facility] Medical Records Department [address] [place] [address] Anesthesia Postop Eval I 06/14/251909 MR#: [id number] Acct: [id number] Name: CORIE LUGO DONOVAN Rep #:[id number] : 1970 54 From: Syd Dwyer MD PCP: Dr. Joshua Whitlock MD Status:ADM IN Y Race: C Location: [place] [address] Anesthesia: Postop Eval I Current Vital Signs [...] MD Cosigner Signature: Date CC: ~ Signed [facility] Work Phone: 1(710) 728-979909-11-2025 Consult note [facility] Medical Records Department [address] [place] [address] Anesthesia Postop Eval II 06/14/252101 MR#: [id number] Acct: [id number] Name: CORIE LUGO Rep #:[id number] 2 : 1970 54 From: Syd Dwyer MD PCP: Dr. Joshua Whitlock MD Status:ADM IN Y Race: C Location: [facility] MS309 -1 Anesthesia Postop Eval I Sum [...] MD Cosigner Signature: Date CC: ~ Signed [facility]09-11-2025 Progress note [facility] Medical Records Department [address] [place] [address] Progress Note - Hospitalist 06/14/25 0847 MR#: [id number] Acct: [id number] Name: CORIE LUGO Rep #:[id number] : 1970 54 From: Tika Casey DO PCP: Dr. Joshua Whitlock MD Status:ADM IN Location: SD3 AY282-3 Reason for Visit Chief Complaint: Abdominal pain [...] Neut %(Auto) 60.7, Lymph % (Auto) 27.7, Gladwin %(Auto) 8.7, Eos % (Auto) 1.8, Baso % (Auto) 0.8, Absolute Neuts (auto) 5.7, Absolute Lymphs (auto) 2.61, Nucleated RBC % 0, Sodium 139, Potassium 4.2, [id number], Carbon Dioxide 20.7 L, Anion Gap 14, [...] Clarity Clear, Urine pH 5.0, Ur Specific [place] 1.020, Urine Protein 100 H, Urine Glucose [...] intrahepatic biliary ducts. Normal gallbladder. Reading Location: [facility] Abdomen/Pelvis CT 06/13/25 15:40 IMPRESSION: Dilated intrahepatic biliary ducts in the common bile duct down to the head of the pancreas were I suspect a 14 mm mass in the head of the pancreas. Findings suggestive of small gallstones. Reading Location: [id number] Physical Exam Const alert, oriented x3, no [...] Cosigner Signature (if applicable): CC: ~ Signed [place] [address]-11-2025 Consult note [facility] Medical Records Department [address] [place] [address] Anesthesia Postop Eval I 06/14/251909 MR#: [id number] Acct: [id number] Name: CORIE LUGO DONOVAN Rep #:[id number] : 1970 54 From: Syd Dwyer MD PCP: Dr. Joshua Whitlock MD Status:ADM IN Y Race: C Location: [place] [address] Anesthesia: Postop Eval I Current Vital Signs [...] MD Cosigner Signature: Date CC: ~ Signed [facility]09-11-2025 Consult note Author Killian Wallace [facility] Note Date/Time June 14, 2025 4:59pm [facility] Medical Records Department [address] [place] [address] Consultation - GI 06/14/25 1650 MR#: [id number] Acct: [id number] Name: CORIE LUGO DONOVAN Rep #:[id number] 2 : 1970 54 From: Killian Wallace DO PCP: Dr. Joshua Whitlock MD Status:ADM IN Location: [place] [address] HPI Consult Data Date of Consult: 06/14/25 [...] No evidence of metastasis on this scan. [facility] Medical History Post-menopausal Wears glasses [...] intrahepatic biliary ducts. Normal gallbladder. Reading Location: [facility] Assessment & Plan Assessment/Plan (1) Mass of [...] coagulation studies. Charges/Coding Visit Charges Inpatient E&M: 91564 Init Hosp L3 06/14/25 1659 <Electronically signed by Killian Wallace DO> Cosigner Signature (if applicable): CC: Dr. Joshua Whitlock MD~ Signed [facility] Work Phone: 1(916) 728-294809-11-2025 Procedure note [facility] Medical Records Department [address] [place] [address] ERCP Report MR#: [id number] Acct: [id number] Name: CORIE LUGO Rep #:[id number] : 1970 54 From: Killian Wallace [...] hour 6 minutes 49 seconds Findings: The casting technician film was normal. The esophagus was successfully [...] AFP, CEA Procedure Code(s): --- Professional --- 51240, Endoscopic retrograde cholangiopancreatography (ERCP); with placement of endoscopic stent into biliary or pancreatic duct, including pre- and post-dilation and guide wire passage, when performed, including sphincterotomy, when performed, each stent 83115, Endoscopic retrograde cholangiopancreatography (ERCP); with removal of calculi/debris from biliary/pancreatic duct(s) 65871, Endoscopic cannulation of papilla with direct visualization of pancreatic/common bile duct(s) (List separately in addition to code(s) for primary procedure) 37003, 26, Endoscopic catheterization of the biliary ductal system, radiological supervision and interpretation CPT copyright 2021 [employer]. All rights reserved. The codes documented in this report are preliminary and upon cost engineer review may be revised to meet current compliance requirements. Killian Wallace DO 06/14/2025 6:56:22 PM This report has been signed electronically. Number of Addenda: 0 Note Initiated On: 06/14/2025 4:53 PM 09/11/25 1856 Date _ Killian Wallace DO Cosigner Signature: Date (if indicated) CC: Dr. Joshua Whitlock MD; Killian Wallace DO ~ Date Dictated: 06/14/25 1653 Date Transcribed: Smelter Charger: RF Signed [facility]09-11-2025 Procedure note [facility] Medical Records Department [address] [place] [address] Provation Physician Letter MR#: [id number] Acct: [id number] Name: CORIE LUGO Rep #:[id number] 2 : 1970 54 From: Killian Wallace [...] ~ Date Dictated: 06/14/25 1653 Date Transcribed: Smelter Charger: NASIM Nichols [facility]09-11-2025 Consult note Author Syd Dwyer [facility] Note Date/Time June 14, 2025 3:56pm [facility] Medical Records Department [address] [place] [address] Pre-Anesthesia Evaluation 06/14/25 1547 MR#: [id number] Acct: [id number] Name: CORIE LUGO DONOVAN Rep #:[id number] : 1970 54 From: Syd Dwyer MD PCP: Dr. Joshua Whitlock MD Status:ADM IN Y Race: C Location: [place] [address] ASA Classification* ASA Classification ASA Classification: 2 [...] retrograde cholangiopancreatography. 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 Hx Respiratory Tract Infection No 06/13/25 20:30 STOP Sleep Apnea STOP Sleep Apnea - 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: STOP Sleep Apnea - 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 Hx Hypertension No 06/13/25 18:29 Hx Sleep [...] Tobacco Use History Tobacco Use History - 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: Tobacco Use History - 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 Tobacco Use Smoking Status Current every day smoker 06/13/25 19:22 Hx Tobacco Use Yes 06/13/25 18:29 Years Smoking Packs Smoked per Day Smoking Cessation Date was within the last 15 years Hx Smoking Cessation Date Hx Smoking Cessation Counseling Hematologic Medial History Hematologic Hx - 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: Hematologic Medical Hx - lpn rn hospice Hx of Blood Transfusion No 06/13/25 18:29 [...] confused, unrespo /Reproduction History /Reproductive History - 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: /Reproductive Hx- 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 Hx Now No 06/13/25 20:30 Gestational Age [...] mls @ 15 mls/hr 06/13/25 19:34 IV .[id number] PRN Saline Flush Sodium Chloride 250 mls @ 15 mls/hr 06/13/25 19:34 IV .S28S71N PRN Additional IVPB Infusion Lactated Ringer's 1,000 [...] 20 Mg Tablet PO Not Given DAILY [facility] Rizatriptan Benzoate 10 mg 06/14/25 13:40 06/14/25 [...] MD Cosigner Signature: Date CC: ~ Signed [facility] Work Phone: 1(402) 749-391109-11-2025 Consult note [facility] Medical Records Department [address] [place] [address] Consultation - GI 06/14/25 1650 MR#: [id number] Acct: [id number] Name: CORIE LUGO DONOVAN Rep #:[id number] : 1970 54 From: Killian Friend PCP: Dr. Joshua Whitlock MD Status:ADM IN Location: [facility] JX036-3 HPI Consult Data Date of Consult: 06/14/25 [...] No evidence of metastasis on this scan. [facility] Medical History Post-menopausal Wears glasses [...] intrahepatic biliary ducts. Normal gallbladder. Reading Location: [facility] Assessment & Plan Assessment/Plan (1) Mass of [...] coagulation studies. Charges/Coding Visit Charges Inpatient E&M: 01810 Init Hosp L3 06/14/25 1656 Cosigner Signature (if applicable): CC: Dr. Joshua Whitlock MD~ Signed [facility]09-11-2025 Consult note [facility] Medical Records Department [address] [place] [address] Pre-Anesthesia Evaluation 06/14/25 1544 MR#: [id number] Acct: [id number] Name: CORIE LUGO [facility] Rep #:[id number] 4 : 1970 54 From: Syd Dwyer [...] retrograde cholangiopancreatography. 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 Hx Respiratory Tract Infection No 06/13/25 20:30 STOP Sleep Apnea STOP Sleep Apnea - 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: STOP Sleep Apnea - 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 Hx Hypertension No 06/13/25 18:29 Hx Sleep [...] Tobacco Use History Tobacco Use History - 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: Tobacco Use History - 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 Tobacco Use Smoking Status Current every day smoker 06/13/25 19:22 Hx Tobacco Use Yes 06/13/25 18:29 Years Smoking Packs Smoked per Day Smoking Cessation Date was within the last 15 years Hx Smoking Cessation Date Hx Smoking Cessation Counseling Hematologic Medial History Hematologic Hx - 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: Hematologic Medical Hx - lpn rn hospice Hx of Blood Transfusion No 06/13/25 18:29 [...] confused, unrespo /Reproduction History /Reproductive History - 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: /Reproductive Hx- 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 Hx Now No 06/13/25 20:30 Gestational Age [...] mls @ 15 mls/hr 06/13/25 19:34 IV .[id number] PRN Saline Flush Sodium Chloride 250 mls @ 15 mls/hr 06/13/25 19:34 IV .L54P17Y PRN Additional IVPB Infusion Lactated Ringer's 1,000 [...] MD Cosigner Signature: Date CC: ~ Signed [facility]09-11-2025 Discharge summary Author Debi Eckert [facility] Note Date/Time June 13, 2025 11:27pm [facility] Medical Records Department [address] [place] [address] Emergency Department Summary 06/13/25 MR#: [id number] Acct: [id number] Name: CORIE LUGO Rep #:[id number] : 1970 54 From: Debi Ekcert DO PCP: Dr. Joshua Whitlock MD Status:ADM IN Location: MS3 AH283-0 HPI HPI - GI History of Present [...] worse by eating. No prior abdominal surgeries. [facility] Medical History Post-menopausal Wears glasses Anxiety [...] % (Auto) 60.7 Lymph % (Auto) 27.7 Gladwin % (Auto) 8.7 Eos % (Auto) 1.8 [...] Clarity Clear Urine pH 5.0 Ur Specific [place] 1.020 Urine Protein 100 H Urine Glucose [...] Findings suggestive of small gallstones. Reading Location: [id number] Discharge Plan Triage Chief Complaint: Abd Pain [...] MD [Primary Care Provider] - Print Language: Liberian Disposition Disposition: [facility] What to do if you have Problems For any increased pain, shortness of breath, bleeding, nausea or vomiting, chestpain, or any unexpected problems, contact your Primary Care Provider. Call [facility] ([phone]) or report to the closest Emergency Room. Call 911 if necessary. 06/13/255 <Electronically signed by Debi Eckert DO> Cosigner Signature (if applicable): CC: Dr. Joshua Whitlock MD ~ Signed [facility] Work Phone: 1(295) 708-233409-11-2025 History and physical note Author Maynor Blanton [facility] Note Date/Time June 13, 2025 10:08pm [facility] Medical Records Department [address] [place] [address] H&P Exam - Hospitalist 06/13/25 1655 MR#: [id number] Acct: [id number] Name: CORIE LUGO DONOVAN Rep #:[id number] : 1970 54 From: Maynor patel DO PCP: Dr. Joshua Whitlock MD Status:ADM IN Location: [facility] WN588-2 HPI - General General Date of Admission: 06/13/25 Date of Service: 06/13/25 Chief Complaint: Abdominal pain with jaundice HPI Narrative CORIE LUGO, is a 54 F who presented to [facility] ED on 06/13/2025 with abdominal pain and [...] time. Will be admitted for further management. [facility] Medical History Post-menopausal Wears glasses [...] % (Auto) 60.7, Lymph % (Auto) 27.7, Gladwin %(Auto) 8.7, Eos % (Auto) 1.8, Baso [...] Clarity Clear, Urine pH 5.0, Ur Specific [place] 1.020, Urine Protein 100 H, Urine Glucose [...] Findings suggestive of small gallstones. Reading Location: [id number] Assessment & Plan Assessment/Plan (1) Abdominal pain: (2) Biliary obstruction: (3) Mass of head of pancreas: PLAN: Plan Patient is a 54-year-old female who presented to [facility] ED on 06/13/2025 with abdominal pain and jaundice. 1. Abdominal pain with pancreatic head mass, biliary ductal dilation and elevated transaminases ? Admit under inpatient status to [facility]. GI consulted. Highest concern is [...] 57 minutes. Charges/Coding Visit Charges Inpatient E&M: 68144 Init Hosp L2 06/13/252207 <Electronically signed by Maynor Blanton DO> Cosigner Signature (if applicable): CC: Dr. Maynor Blanton DO; Dr. Joshua Whitlock MD~ Signed [facility] Work Phone: 1(182) 812-114109-10-2025 Discharge summary [facility] Medical Records Department [address] [place] [address] Emergency Department Summary 06/13/25 MR#: [id number] Acct: [id number] Name: CORIE LUGO Rep #:[id number] : 1970 54 From: Debi Eckert DO PCP: Dr. Joshua Whitlock MD Status:ADM IN Location: [place] [address]-1 HPI HPI - GI History of Present [...] % (Auto) 60.7 Lymph % (Auto) 27.7 Gladwin % (Auto) 8.7 Eos % (Auto) 1.8 [...] Clarity Clear Urine pH 5.0 Ur Specific [place] 1.020 Urine Protein 100 H Urine Glucose [...] Findings suggestive of small gallstones. Reading Location: [facility] Discharge Plan Triage Chief Complaint: Abd Pain [...] MD [Primary Care Provider] - Print Language: Liberian Disposition Disposition: Acute Care Hospital [facility] What to do if you have Problems For any increased pain, shortness of breath, bleeding, nausea or vomiting, chestpain, or any unexpected problems, contact your Primary Care Provider. Call [facility] ([phone]) or report tothe closest Emergency Room. Call 911 if necessary. 06/13/25 6879 Cosigner Signature (if applicable): CC: Dr. Joshua Whitlock MD ~ Signed [facility]09-10-2025 History and physical note [facility] Medical Records Department [address] [place] [address] H&P Exam - Hospitalist 06/13/25 1655 MR#: [id number] Acct: [id number] Name: CORIE LUGO Rep #:[id number] : 1970 54 From: Maynor patel DO PCP: Dr. Joshua Whitlock MD Status:ADM IN Location: [facility] AU288-6 HPI - General General Date of Admission: 06/13/25 Date of Service: 06/13/25 Chief Complaint: Abdominal pain with jaundice HPI Narrative CORIE LUGO, is a 54 F who presented to [facility] ED on 06/13/2025 with abdominalpain and jaundice. [...] agreeable to admitting the patient with plan [facility] for further evaluation. Hospitalist was then contacted [...] time. Will be admitted for further management. [facility] Medical History Post-menopausal Wears glasses [...] Neut %(Auto) 60.7, Lymph % (Auto) 27.7, Gladwin %(Auto) 8.7, Eos % (Auto) 1.8, Baso % (Auto) 0.8, Absolute Neuts (auto) 5.7, Absolute Lymphs (auto) 2.61, Nucleated RBC % 0, Sodium 139, Potassium 4.2, [id number], Carbon Dioxide 20.7 L, Anion Gap 14, [...] Clarity Clear, Urine pH 5.0, Ur Specific [place] 1.020, Urine Protein 100 H, Urine Glucose [...] Findings suggestive of small gallstones. Reading Location: [id number] Assessment & Plan Assessment/Plan (1) Abdominal pain: (2) Biliary obstruction: (3) Mass of head of pancreas: PLAN: Plan Patient is a 54-year-old female who presented to [facility] ED on 06/13/2025 with abdominal pain and jaundice. 1. Abdominal pain with pancreatic head mass, biliary ductal dilation and elevated transaminases ? Admit under inpatient status to [facility]. GI consulted. Highest concern is [...] 57 minutes. Charges/Coding Visit Charges Inpatient E&M: 55967 Init Hosp L2 06/13/252207 Cosigner Signature (if applicable): CC: Dr. Maynor Blanton DO; Dr. Joshua Whitolck MD~ Signed [facility]09-10-2025 Evaluation note* Diagnosis Onset Date Resolution Status Admit Date Abdominal pain acute June 13, 2025 4:58pm Biliary obstruction acute June 2024 4:58pm Hyperbilirubinemia acute 2024 4:58pm Jaundice acute June 4:58pm Mass of head of pancreas acute June 13, 2025 4:58pm Transaminitis acute June 042024 4:58pm [facility] Work Phone: [phone]) 878-970709-10-2025 Radiology Diagnostic study note [facility] Imaging Services [address] [place], [place] [address] Gallbladder MR#: [id number] Acct: [id number] Name: CORIE LUGO DONOVAN Rep #: [id number] : 1970 F 54 From: Sary Yeager MD PCP: Dr. Joshua Whitlock MD Status: ADM IN Study:Gallbladder Date of Exam: 06/13/25 Exam# [id number] Ordering Dr: Robyn Eckert DO PROCEDURE: GALLBLADDER [...] Eckert DO; Dr. Joshua Whitlock MD ~ Smelter Charger: Signed [facility]09-10-2025 Radiology Diagnostic study note [facility] Imaging Services [address] [place] [address] Abdomen/Pelvis W IV Cont ONLY MR#: [id number] Acct: [id number] Name: CORIE LUGO Rep #: [id number] : 1970 F 54 From: Hi Somers MD PCP: Dr. Joshua Whitlock MD Status: REG ER Study:Abdomen/Pelvis W IV Cont ONLY Date of E xam: 06/13/25 Exam# [id number] Ordering Dr: Robyn Eckert DO PROCEDURE: ABDOMEN/PELVIS [...] Findings suggestive of small gallstones. Reading Location: [id number] CC: Dr. Debi Eckert DO; Dr. Joshua Whitlock MD ~ Smelter Charger: Signed [facility]12-13-2024 [facility] Medical Records Department [address] [place] [address] History Physical Exam 09/15/24 1125 MR#: [id number] Acct: [id number] Name: CORIE LUGO Rep #: [id number] : 1970 54 From: Mal DOCKERY PA-C PCP: Dr. Joshua Whitlock MD Status:[facility] Location: [place] [address] History and Physical History and Physical Patient [...] Patient will be undergoing a trip to [facility] starting tomorrow and she has begun aspirin [...] Foot Surgery Ligiment - (2007) KARAN??? @ [facility] Carpal Tunnel Release RT - (1998) @ [facility] LT Ankle Ligement Repair - (09/22/2018) AEM @ [facility] Diagnostic Ablation - (2006) @ [facility] RT Knee, Arthro. Med. Lat. Meniscectomy, Chondroplasty MFC,LTP,PFJ - (06/25/2021) Dr Jesús Ortega @ [facility] RT Knee, Total Joint Replacement - (11/10/2023) MSK @ [facility] Anesthesia Complications: Vomiting - intense Assistive Devices: [...] 1-2 tablet by mo (more content not included)...[facility] Evaluation noteNo assessment information availableWCincinnati [facility] Work Phone: Evaluation note* Diagnosis Pancreatic mass Unspecified disease of pancreas [facility] instructionsAdditional Instructions 1. Please call Dr. Wallace's office with worsening abdominal pain, increased nausea and vomiting or increased jaundice 2. Please complete antibiotics as noted below. Do not utilize alcohol while taking metronidazole. Date of Discharge: 06/15/25[facility] Work Phone: Hospital Discharge instructionsAdditional Instructions [...] if your symptoms worsen or new symptoms develop.[facility] Work Phone: Hospital Discharge instructions* Attachments The following attachments cannot be sent through Care Everywhere. * Endoscopic Ultrasound (Liberian) * Upper GI Endoscopy Discharge Instructions (Liberian) [facility] (narrative)No reason for referral information availableWCincinnati Children's [facility] Work Phone: Reason for visit Narrative* Auth/Cert (Routine) Specialty Diagnoses / Procedures Referred By Rickey t Referred To Contact Diagnoses Pancreatic mass Procedures SC ESOPHAGOSCOPY FLEXIBLE TRANSORAL ULTRASOUND EXAM ESOPHAGOSCOPIC ULTRASOUND EXAM Preston Armas MD [address] [place] [id number] Phone: tel: fax: [facility] Endoscopy [address] [place] [address] Phone: tel: Referral ID Status Reason Start Date Expiration Date Visits Re quested Visits Authorized [id number] 1 [facility] Summary Purpose Family History No Family History [...] Do you have a Healthcare Power of Junior Systems Analyst? No June 13, 2025 3:39pm Advance Directive Response Recorded Date/ Time Do you have a Healthcare Power of Junior Systems Analyst? No June 13, 2025 6:29pm Advance Directive Response Recorded Date/ Time Do you have a Healthcare Power of Junior Systems Analyst? No June 13, 2025 6:29pm Do you have a Healthcare Power of Junior Systems Analyst? No June 18, 2025 4:26pm Date Activated [...] section and content) DATE CREATED AUTHOR 02/18/2020 [facility] DATE CREATED AUTHOR AUTHOR'S ORGANIZ ATION 08/02/2024 [facility] DATE CREATED AUTHOR AUTHOR'S ORGANIZ ATION 06/28/2025 [facility] DATE CREATED AUTHOR AUTHOR'S ORGANIZ ATION 07/06/2025 [facility] DATE CREATED AUTHOR AUTHOR'S ORGANIZ ATION 07/08/2025 [facility] Care Teams (unrecognized sec tion and content) [...] Active Start: June 14, 2025 Dr. Debi cEkert , DO Emergency Provider Active S tart: [...] June 19, 2025 End: June 19, 2025 Criminology Teacher Relationship Specialty Start Date End Date Bev Stoner MD [address] [place] [address] PCP - General Hematology and Oncology 06/26/25 [...] BE BASED ON THE PRIMARY CLINICAL RECORDS. [employer] [facility]. provides no warranty or guarantee of the accuracy or completeness of information in this document.
[2025-09-07] MEDS: HYDROmorphone 0.5 MG/0.5 ML SYRINGE IV (17:41)
--- NOTE | 2025-09-07 18:49 | CON.PCM.GI_ITS ---
HPI Consult Data Date of Consult: 09/07/25 HPI Narrative Reason for Consultation: Pancreatic cancer HPI Narrative: 55-year-old woman with a history of pancreatic cancer with liver metastases, complicated by hypercoagulable state and pulmonary embolism (PE), and obstructive jaundice. She presents with worsening nausea (rated 8/10 currently) and abdominal pain (rated 5/10 currently), which has been a chronic issue. She reports a significant weight loss of 30 pounds over the last few months. Current home medications for symptom management include: * Morphine 30 mg p.o. every 6 hours. * Compazine 10 mg p.o. every 6 hours. * Zofran 4 mg p.o. every 6 hours as needed. Despite these medications, her nausea is poorly controlled. She recently received Dilaudid 1 mg. She is being transferred from an outside hospital due to worsening liver function tests (LFTs) and imaging consistent with progression of metastatic disease and possible bile duct stent obstruction. * Labs: * Bilirubin: 5.65 (previously recorded at admission 06.13.25) * AST: 507 * ALT: 1069 * Alk Phos: 886 * Lipase: Normal * AFP: Within normal limits (WNL) * CEA: 8 (High) * CA 19-9: 37 (High) * Imaging: * CT Abdomen: Showed dilated bile ducts and pancreatic head mass. Imaging consistent with worsening metastatic disease to the liver. * Procedures: * ERCP 06.14.25: Revealed a severely narrowed lumen in the lower third of the main bile duct with a malignant-appearing stricture. Choledocholithiasis was found and removed. Pus was found during duct sweeping. A temporary stent was placed in the common bile duct. Cytology samples obtained.] [facility] Medical History Post-menopausal Wears glasses Anxiety Arthritis Easy bruising Migraine headache Shortness of breath on exertion Smoker History of edema History of pain when walking Home Medications ?Medication ?Instructions ?Recorded ?Last Taken ?Type cholecalciferol (vitamin D3) 25 25 mcg PO DAILY 09/24/24 History mcg (1,000 unit) capsule (Vitamin D3) loratadine 10 mg capsule 10 mg PO DAILY 08/29/2409/03 History melatonin 3 mg capsule 3 mg PO QHS 11/26/24 Unknown History sumatriptan succinate 50 mg tablet 50 mg PO PRN PRN mi graine headache 08/29/24 Unknown History omeprazole 20 mg capsule,delayed 40 mg PO DAILY Unknown History release sucralfate 1 gram tablet 1 g PO 4X/DAY #180 tabs 06/04 11/28 Unknown Rx B-complex with vitamin C 1 cap PO QDAY 06/19/25 Unkno wn History zccojj-hyailebr-prpfoat 2 cap PO BID #90 caps Unknown Rx (pork)36,000-114,000-180k unit capsule,del rel (Creon) nhsmfc-koeveood-elycbhc(pork) 1 cap PO QAC #120 caps 0 06/21/25 Unknown Rx 40,000-126,000-168k unit capsule,del rel (Zenpep) Allergy/AdvReac Type Severity Reaction Status Date / Time No Known Allergies Allergy Verified 06/18/25 16:13 Family History (Updated 06/19/25 @ 13:10 by Winnie Preston) Mother Arthritis Thyroid disorder Father Cancer Grandfather Cancer CVA (cerebral vascular accident) Surgical History Hx of total knee arthroplasty Hx of arthroscopic knee surgery History of endometrial ablation History of ankle surgery History of carpal tunnel surgery of right wrist Hx of foot surgery Hx of tubal ligation Social History (Updated 06/19/25 @ 13:09 by Winnie Preston) Smoking Status: Light Smoker (<10/day) alcohol intake: never substance use type: does not use caffeine: Yes what type of physical activity do you participate in: other frequency: 1-2 times per week ROS Constitutional Constitutional: Denies fatigue, fever(s), poor appetite, weight gain or weight loss Gastrointestinal Gastrointestinal: Denies belching, bloating, change in bowel habits, change in stool character, chewing difficulty, coffee ground emesis, constipation, cramping, diarrhea, dyspepsia, dysphagia, early satiety, excessive flatus, fecal incontinence, heartburn, hematemesis, hematochezia, hemorrhoids, loose stools, melena, nausea, odynophagia, rectal bleeding, tenesmus, vomiting or weight changes Physical Exam Const alert, oriented x3, no apparent distress and healthy appearing General Appearance: cooperative GI normal to inspection, nondistended, normoactive bowel sounds, soft to palpation, non-tender and non-distended Percussion: normal to percussion Rectal Exam: deferred Assessment & Plan Assessment/Plan (1) Mass of head of pancreas: (2) Abdominal pain: (3) Jaundice: (4) Transaminitis: (5) Hyperbilirubinemia: PLAN: Assessment The patient has metastatic pancreatic adenocarcinoma with progressive disease in the liver, leading to ongoing obstructive jaundice, likely secondary to tumor progression and/or an obstructed temporary biliary stent. Her condition is complicated by a hypercoagulable state requiring anticoagulation. She is experiencing significant symptom burden with poorly controlled nausea (8/10) and abdominal pain (5/10), contributing to severe weight loss (30 lbs). She has failed previous chemotherapy attempts due to side effects. The immediate clinical picture is one of worsening liver function and severe symptoms requiring aggressive management of her comfort and biliary obstruction. Plan * Symptom Management: * Aggressively manage nausea and pain. Adjust current antiemetic (scopolamine 1.5 mg, Reglan 10 mg IV every 6 hours with 25 mg of prochlorperazine per rectum )and analgesic regimen to achieve better control. Consider alternative routes of administration (e.g., IV, subcutaneous) if oral intake remains poor. * GI: * Evaluation of the likely obstructed temporary biliary stent and consideration of permanent stent placement. * Proceed with ERCP and stent exchange/replacement as indicated by clinical picture and imaging. * Repeat CT scan abdomen pelvis * Oncology: * Continue supportive care focus. Chemotherapy attempts have failed previously due to intolerance. Re-evaluate goals of care and discuss palliative options with the patient and family given the progressive metastatic disease. * Monitoring: * Monitor LFTs, bilirubin levels, and pain/nausea scales closely. * Goals of Care: * Focus on comfort, symptom management, and maintaining quality of life given the advanced stage of her disease. Charges/Coding Visit Charges Inpatient E&M: 63358 Init Hosp L3
[2025-09-07] MEDS: Lactated Ringers 1,000 ML 150 ML IV (21:53)
[2025-09-07] MEDS: Scopolamine 1mg/72hr Patch 1 PATCH TD (21:55)
[2025-09-07] MEDS: Senna Tablet 1 TABLET PO (22:01)
[2025-09-07] MEDS: Senna/Docusate Sodium 1 Tablet 2 TABLET PO (22:01)
[2025-09-07] MEDS: MELATONIN 3 MG TABLET PO (22:02)
[2025-09-07] MEDS: morphine SR 15 MG Tablet 30 MG PO (22:05)
[2025-09-07 22:18] VITALS: BP 118/54; PULSE 61; RESP 16; TEMP 36.6; O2SAT 95
[2025-09-07 22:31] VITALS: O2SAT 95
[2025-09-08 04:51] VITALS: BP 113/61; PULSE 62; RESP 16; TEMP 36.7; O2SAT 94
[2025-09-08 04:55] LABS: Hematocrit 38.2 % (37-47); Hemoglobin 12.3 g/dL (12.0-15.0); Immature Granulocytes Count 0.020 X10^3/uL (0.0-0.0); Mean Corp Hgb Conc 32.2 g/dL (32-36); Mean Corpuscular Volume 85.7 fL (81-99); Mean Platelet Vol. 11.3 fl (6.2-12.0); NRBC Flagged by Analyzer 0 % (0-5); Platelet Count 270 K/mm3 (150-450); RBC Distribution Width CV 14.7 % (11.6-14.6); RBC Distribution Width SD 45.8 fl (35.1-43.9); Red Blood Count 4.46 M/mm3 (4.2-5.4); White Blood Count 6.2 K/mm3 (4.4-11.0)
[2025-09-08] MEDS: Lactated Ringers 1,000 ML 150 ML IV ×3 (04:59→18:40)
--- NOTE | 2025-09-08 05:13 | EKG12_ITS ---
Test Reason : PRE-OP Blood Pressure : */* mmHG Vent. Rate : 51 BPM Atrial Rate : 51 BPM P-R Int : 124 ms QRS Dur : 82 ms QT Int : 450 ms P-R-T Axes : 62 28 39 degrees QTcB Int : 414 ms Sinus bradycardia Nonspecific ST abnormality Confirmed by Adrien Segovia ([id number]), social media editor ROSA WINTER ([id number]) on 09/11/2025 8:46:17 AM Referred By: Maynor Blanton Confirmed By: Adrien Segovia
[2025-09-08 05:33] LABS: AST(SGOT) 170 U/L (<=31); Alanine Aminotransfer ALT/SGPT 273 U/L (<=34); Albumin, Serum 3.0 g/dL (3.5-5.0); Alkaline Phosphatase 570 U/L (35-104); Anion Gap 16 (5-15); BUN 7 mg/dL (4-19); BUN/Creat Ratio 13.4 RATIO (10-20); Calcium,Total 8.8 mg/dL (7.6-11.0); Carbon Dioxide 19.6 mmol/L (21.0-32.0); Chloride 104 mmol/L (98-108); Estimated Creatinine Clearance 106.37 ml/min (50-250); Globulin 2.5 g/dL (2.2-4.2); Glucose 76 mg/dL (70-99); Potassium 3.3 mmol/L (3.3-5.1)
--- NOTE | 2025-09-08 08:35 | CASEMGMT ---
Addendum entered by Brii Wan 09/08/25 10:43: Social Work [facility] called back again, they will order home O2 if needed. They are aware that pt will d/c home tomorrow most likely. BRIGITTE Rodriguez Addendum entered by Brii Wan 09/08/25 09:56: Social Work Pt is not going home today, her ERCP has been moved to tomorrow morning. SW called [facility] to let them know, as initially it was thought pt may be able to return home later today. BRIGITTE Rodriguez Addendum entered by Brii Wan 09/08/25 09:35: Social Work SW received a call back from [facility], they will take pt back at d/c. Admissions asked SW to fax over clinical information, they will reach out to or pt to set up a time to see pt while here, and will follow up once pt is d/c home. SW explained will have staff call [facility] once pt is ready for discharge, SW attained the best number and fax for when pt is d/c, put this on the green sheet. SW faxed over the order and H&P to [facility], to re-initiate the referral for services at d/c. Green sheet on chart for staff to follow when pt is ready for d/c. BRIGITTE Rodriguez Original Note: Social Work SW reviewed chart, pt was on hospice prior to hospital stay. SW met w/pt, pt w/flat affect this morning, not engaging in conversation. SW let pt know SW is available for support. Pt confirms was on hospice prior to this hospital stay w/[facility], and would like to continue w/hospice services dsouza when she returns home. SW explained will call [facility]. [facility], will await a call back. BRIGITTE Rodriguez
[2025-09-08] MEDS: Senna/Docusate Sodium 1 Tablet 2 TABLET PO ×2 (10:15→21:07)
[2025-09-08] MEDS: Senna Tablet 1 TABLET PO ×2 (10:16→21:07)
[2025-09-08] MEDS: morphine SR 15 MG Tablet 30 MG PO ×2 (10:19→21:07)
[2025-09-08 10:27] VITALS: BP 108/56; PULSE 55; RESP 16; TEMP 36.6; O2SAT 98
--- NOTE | 2025-09-08 12:39 | PCM.PN.HOSP ---
Reason for Visit Chief Complaint: Abdominal pain and worsening LFTs Subjective Subjective Patient states that her pain is overall well-controlled. Plan is to do ERCP tomorrow due to staffing issues which would make this impossible until late in the day today. Will start p.o. diet and then n.p.o. after midnight. Discussed with patient she states she feels her pain is under enough control that we can wait till tomorrow. Objective Data Objective Data Vital Signs: Vital Signs Temp Pulse Resp BP Pulse Ox O2 Del Method 98 F 55 L 16 108/56 L 98 Room Air 09/08/25 10:27 09/08/25 10:27 09/08/25 10:27 09/08/25 10:27 09/08/25 10:27 09/08/25 10:27 Oxygen Delivery Method Room Air Weight: 77.564 kg Body Mass Index (BMI) 32.3 Intake & Output: Intake and Output for Last 24 Hours 09/06/25 09/07/25 09/08/25 23:59 23:59 23:59 Intake Total 100 / 200 2400 / 2400 Balance 100 / 200 2400 / 2400 Lab / Micro Data 09/08/25 04:35 09/08/25 04:35 Labs: Laboratory Results - last 24 hr 09/08/25 04:35: WBC 6.2, RBC 4.46, Hgb 12.3, Hct 38.2, MCV 85.7, MCH 27.6, MCHC 32.2, RDW Std Deviation 45.8 H, RDW Coeff of Morelia 14.7 H, Plt Count 270, MPV 11.3, Immature Gran % (Auto) 0.300, Neut % (Auto) 54.4, Lymph % (Auto) 31.4, Kershaw % (Auto) 9.8, Eos % (Auto) 3.5, Baso % (Auto) 0.6, Absolute Neuts (auto) 3.4, Absolute Lymphs (auto) 1.96, Nucleated RBC % 0, Sodium 139, Potassium 3.3, Chloride 104, Carbon Dioxide 19.6 L, Anion Gap 16 H, BUN 7, Creatinine 0.55 L, Estim Creat Clear Calc 106.37, Est GFR (MDRD) Non-Af 107, BUN/Creatinine Ratio 13.4, Glucose 76, Calcium 8.8, Total Bilirubin 3.08 H, AST 170 H, ALT 273 H, Alkaline Phosphatase 570 H, Total Protein 5.5 L, Albumin 3.0 L, Globulin 2.5, Albumin/Globulin Ratio 1.2 Physical Exam Const alert, oriented x3, no apparent distress and average body habitus; Negative for healthy appearing Constitutional Narrative: Middle age white female lying in bed in a dark room, affect is flat, nursing at bedside HEENT head/scalp atraumatic and moist oral mucous membranes Head and Scalp: normocephalic Resp normal respiratory effort, no retractions, no use of accessory muscles and clear to auscultation bilaterally Auscultation: Negative for crackles, rhonchi or wheezes Cardio regular rate, regular rhythm, S1 normal heart sound, S2 normal heart sound, no murmurs, no rub, no gallops and no clicks GI normal to inspection, nondistended, normoactive bowel sounds and soft to palpation GI Narrative: tender in epigastrum Extremity no clubbing, cyanosis or edema Extremity Narrative: 2+ radial pulses Neuro moves all extremities and no focal motor deficits Speech: speech normal Psych Psych Narrative: affect flat Assessment & Plan Assessment/Plan (1) Hyperbilirubinemia: (2) Transaminitis: PLAN: Plan Metastatic Pancreatic Cancer - diagnosed with pancreatic cancer and mid June and had biliary stent placement done at that time - Underwent 1 round of chemotherapy with significant side effects - Has been in hospice - Continue IV fluids - needed pain medication - As needed antiemetics - plan is for ERCP tomorrow - allow for diet since no procedure today and then n.p.o. after midnight - Patient intends to enroll in hospice with [facility] again at discharge we will plan on discharge tomorrow after procedure Acute transaminitis/hyperbilirubinemia with abdominal pain - Highly suspicious for biliary stent obstruction - Plan for ERCP tomorrow for palliative stent placement - As needed medication for pain - As needed antiemetics Hypokalemia - Treated and resolved History of DVT - Patient was treated with Coumadin initially but decided on hospice and had transitioned to low-dose Xarelto but no longer taking this - DVT prophylaxis with enoxaparin while hospitalized GERD - Continue PPI - Continue carafate Seasonal Allergies -cont Loratidine History of migraine headaches - Okay for as needed sumatriptan Obesity - BMI 32.3 DVT prophylaxis - Lovenox Code Status - DNR CCA no intubation Charges/Coding Visit Charges Inpatient E&M: 71986 Subs Hosp L2
[2025-09-08 15:27] VITALS: BP 112/52; PULSE 53; RESP 16; TEMP 36.7; O2SAT 96
[2025-09-08] MEDS: HYDROmorphone 0.5 MG/0.5 ML SYRINGE IV (17:51)
[2025-09-08] MEDS: 0.9% Saline Lock 10 ML Syringe IV ×2 (17:52→17:55)
[2025-09-08] MEDS: MELATONIN 3 MG TABLET PO (21:07)
[2025-09-08 21:13] VITALS: BP 112/62; PULSE 58; RESP 16; TEMP 36.7; O2SAT 97
[2025-09-08 21:19] VITALS: PULSE 58; O2SAT 97
[2025-09-09] VITALS (11 sets, daily range): BP systolic 110–142; BP diastolic 59–75; PULSE 56–97; RESP 16–18; TEMP 36.4–37; O2SAT 96–99
[2025-09-09] MEDS: Lactated Ringers 1,000 ML 150 ML IV ×2 (01:30→05:07)
[2025-09-09] MEDS: HYDROmorphone 0.5 MG/0.5 ML SYRINGE IV ×2 (05:07→10:18)
[2025-09-09 06:37] LABS: AST(SGOT) 137 U/L (<=31); Alanine Aminotransfer ALT/SGPT 264 U/L (<=34); Albumin, Serum 3.6 g/dL (3.5-5.0); Alkaline Phosphatase 606 U/L (35-104); Anion Gap 18 (5-15); BUN 3 mg/dL (4-19); BUN/Creat Ratio 5.9 RATIO (10-20); Calcium,Total 9.6 mg/dL (7.6-11.0); Carbon Dioxide 23.1 mmol/L (21.0-32.0); Chloride 105 mmol/L (98-108); Estimated Creatinine Clearance 114.71 ml/min (50-250); Globulin 2.7 g/dL (2.2-4.2); Glucose 88 mg/dL (70-99); Potassium 3.3 mmol/L (3.3-5.1)
--- NOTE | 2025-09-09 07:02 | DS.PCM_ITS ---
Providers Date of Admission: 09/07/25 Date of Discharge: 09/09/25 Primary Care Physician: Dr. Joshua Yuan MD Consultations 09/07/25 17:23 Consult: Gastroenterology Routine Consulting Provider: Killian Wallace Reason for Consult: pancreatic ca w/ worsening LFTs EMERGENT Consult: No MD Notified: Yes Date Notified: 09/07/25 Time Notified: 18:13 Method of Notification: Text Reason For Visit: PANCREATIC CA Diagnosis Discharge Diagnosis (1) Hyperbilirubinemia: Status: Acute Code(s): E80.6 - Other disorders of bilirubin metabolism (2) Transaminitis: Status: Acute Code(s): R74.01 - Elevation of levels of liver transaminase levels Medications at Discharge Home Medications loratadine 10 mg capsule 10 mg PO DAILY 08/29/24 melatonin 3 mg capsule 3 mg PO QHS 08/29/24 sumatriptan succinate 50 mg tablet 50 mg PO PRN PRN migraine headache 08/29/24 omeprazole 20 mg capsule,delayed release 40 mg PO DAILY 06/15/25 sucralfate 1 gram tablet 1 g PO 4X/DAY #180 tabs 06/15/25 iwniak-lgwymqqg-eefryka (pork)36,000-114,000-180k unit capsule,del rel (Creon) 2 cap PO BID #90 caps 06/19/25 sfyclv-baoqgglk-qkkyhtr(pork) 40,000-126,000-168k unit capsule,del rel (Zenpep) 1 cap PO QAC #120 caps 06/21/25 L.acidophil,salivari-Bifido bifidum-Strep thermoph 175 mg capsule 1 cap PO BID #0 caps 09/09/25 ciprofloxacin HCl 500 mg tablet (Cipro) 500 mg PO BID #28 tabs 09/09/25 rivaroxaban 2.5 mg tablet (Xarelto) 2.5 mg PO BID #0 tabs 09/09/25 scopolamine base 1 mg over 3 days transdermal patch 1 patch transdermal Q3D #10 ea 09/09/25 Hospital Course Operations ERCP Procedures None Summary of Care Provided Minutes Spent on Discharge: 38 Hospital Course: Mrs. Lugo is a 55-year-old white female who presented to the emergency department at outside hospital and was transferred to [facility] on 09/07/2025 with a chief complaint of abdominal pain and worsening LFTs. Patient had been diagnosed with pancreatic cancer at the end of June. Fine-needle aspiration of the pancreatic head was done and showed malignant cells consistent with ductal adenocarcinoma. She underwent 1 round of chemotherapy in early July but unfortunately had significant side effects and was shortly thereafter found to have venous thromboembolic phenomenon. She initially treated with Coumadin however her levels were difficult to regulate and she elected to be discharged to hospice and at that time was placed on lowest dose Xarelto at which she is currently taking. Has been active with hospice since that point time and had been doing fairly well however this past Wednesday she developed abdominal pain with nausea and vomiting and since that time had minimal p.o. intake. She elected to be evaluated in the emergency department on the date of presentation and to do so they were told they had to revoke hospice. Left findings at outside hospital showed unremarkable CBC. Chemistry panel was unremarkable. LFT showed hyperbilirubinemia and transaminitis with an alk phos of 810. Lipase was normal. UA was unremarkable. CT of the chest abdomen pelvis showed common bile duct and intrahepatic duct dilation despite the presence of a common bile duct stent suggestive of stent obstruction, gallbladder distention, low-attenuation lesion in the left lobe of the liver suspicious for metastatic disease, pancreatic ductal dilation with pancreatic atrophy with a low-attenuation lesion in the pancreatic head and indeterminate right upper lobe pulmonary nodule. Given suspected stone obstruction she was transferred to our hospital for further management. Electrophysiology Scientist was contacted. She was taken for an ERCP on 09/09/2025 at which time she was found to have a single localized biliary stricture in the lower third of the main bile duct that was malignant appearing the entire bile duct was dilated. Choledocholithiasis found and removal of stone was performed by biliary sphincterotomy and balloon extraction. 1 stent was removed from biliary tree and new stent was placed after biliary tree sweeping. She was started on ciprofloxacin 500 mg p.o. twice daily and will continue this for 2 weeks and a probiotic was initiated as well. Prescriptions for both were sent to local pharmacy prior to discharge. Her pain was managed well after the procedure and she was able to eat and drink without any significant issues. Plan is to discharge back to hospice on 09/09/2025. Discharge diagnoses: Acute transaminitis and hyperbilirubinemia with abdominal pain secondary to biliary stent obstruction/choledocholithiasis Metastatic pancreatic cancer Hypokalemia History of VTE GERD Seasonal allergies History of migraine headaches Obesity Tobacco abuse Physical Exam Const alert, oriented x3, no apparent distress, average body habitus and no limitations; Negative for healthy appearing Constitutional Narrative: Middle age white female, at bedside, walk around room, nurse at bedside, appears minimally uncomfortable but nontoxic General Appearance: cooperative, well kempt and well developed Exam Limitations: no limitations Nutritional Appearance: obese HEENT normocephalic, head/scalp atraumatic, hearing grossly normal bilaterally and moist oral mucous membranes Resp normal respiratory effort, normal air movement, no retractions, no use of accessory muscles and clear to auscultation bilaterally Auscultation: Negative for crackles, rhonchi or wheezes Cardio regular rate, regular rhythm, S1 normal heart sound, S2 normal heart sound, no murmurs, no rub, no gallops and no clicks GI normal to inspection, nondistended, normoactive bowel sounds, soft to palpation and non-tender GI Narrative: Mild epigastric tenderness Extremity normal to inspection, full ROM and no clubbing, cyanosis or edema Extremity Narrative: 2+ radial pulses Neuro moves all extremities and no focal motor deficits Speech: speech normal Psych mental status grossly normal Psych Narrative: affect flat Weight / BMI Weight Weight: 77.564 kg Body Mass Index (BMI) 32.3 ABG / Lab / Microbiology Data 09/08/25 04:35 09/09/25 05:20 Laboratory: Laboratory Results - last 24 hr 09/09/25 05:20: Sodium 146 H, Potassium 3.3, Chloride 105, Carbon Dioxide 23.1, Anion Gap 18 H, BUN 3 L, Creatinine 0.51 L, Estim Creat Clear Calc 114.71, Est GFR (MDRD) Non-Af 109, BUN/Creatinine Ratio 5.9 L, Glucose 88, Calcium 9.6, T otal Bilirubin 1.97 H, AST 137 H, ALT 264 H, Alkaline Phosphatase 606 H, Total Protein 6.3, Albumin 3.6, Globulin 2.7, Albumin/Globulin Ratio 1.3 D/C Instructions Discharge Activity: Return to Normal Activity DC O2, CPAP, BIPAP Needs Home O2 Discharge instructions: No DC home with Oxygen: No Meaningful Use Info Meaningful Use Meaningful Use Diagnoses (Choose all that apply): None applicable Discharge Plan Admission Admit Date/Time: 09/07/25 17:15 Primary Reason for Your Visit: Jaundice/abdominal pain Attending Provider: Tika Casey Primary Care Provider: Joshua Yuan Consulting Providers: Friend,Killian; Maynor Blanton Discharge Orders/Prescriptions Prescriptions: New scopolamine base 1 mg over 3 days Patch 3 Day 1 patch transdermal Q3D Qty: 10 0RF rivaroxaban [Xarelto] 2.5 mg Tablet 2.5 mg PO BID Qty: 0 0RF L.acidoph,saliva-B.bif-S.therm 175 mg Capsule 1 cap PO BID Qty: 0 0RF Rx Instructions: This is sold ogjq-swn-duzbhfp please purchase from ciprofloxacin HCl [Cipro] 500 mg tablet 500 mg PO BID Qty: 28 0RF Continued Creon 36,000-114,000- 180,000 unit capsule,delayed release(DR/EC) 2 cap PO BID Qty: 90 1RF Rx Instructions: administer with meals and/or snacks melatonin 3 mg capsule 3 mg PO QHS loratadine 10 mg capsule 10 mg PO DAILY sumatriptan succinate 50 mg tablet 50 mg PO PRN PRN (Reason: migraine headache) omeprazole 20 mg capsule,delayed release(DR/EC) 40 mg PO DAILY sucralfate 1 gram tablet 1 g PO 4X/DAY Qty: 180 0RF Zenpep 40,000-126,000- 168,000 unit capsule,delayed release(DR/EC) 1 cap PO QAC Qty: 120 3RF Rx Instructions: Take 1 cap with meals and 1 with snacks, max 3 meals and 1 snack per day; Max 4 caps per day Discontinued B-complex with vitamin C Capsule 1 cap PO QDAY cholecalciferol (vitamin D3) [Vitamin D3] 25 mcg (1,000 unit) capsule 25 mcg PO DAILY Referrals / Follow Up: Joshua Yuan MD [Primary Care Provider, Medical] Referral Note: As needed Disposition Disposition (needs filled in before D/C Order can be placed): Hospice in Home Charges/Coding Visit Charges Inpatient E&M: 64897 Disch Hosp >30min
--- NOTE | 2025-09-09 07:40 | PCM.PRE.AN2 ---
ASA Classification* ASA Classification ASA Classification: 2 and E Assessment & Plan Anesthesia* Anesthesia Assessment Anesthesia Assessment: Discussed sedation and/or anesthesia options, risks, benefits, and alternatives with patient/parents/legal guardian/POA. Questions invited. The patient/parents/legal guardian/POA seems to understand and agrees to proceed with anesthesia plan. Reviewed the physical assessment, medical history, allergy history and patient home medications list prior to surgery/procedure/anesthetic and documented any changes. Performed airway and anesthesia risk assessments. Anesthesia Type Anesthesia Type: General Anesthesia Focused Assessment* Temperature: 98.0 F Pulse Rate: 68 Blood Pressure: 116/64 Respiratory Rate: 18 Pulse Ox: 96 Airway Assessment Mouth opens: >3 cm Mallampati Score: II Labs Anesthesia Preop lab: CBC WBC, (4.4-11.0) 6.2 K/mm3 09/08/25, 04:35 RBC, (4.2-5.4) 4.46 M/mm3 09/08/25, 04:35 Hgb, (12.0-15.0) 12.3 g/dL 09/08/25, 04:35 Hct, (37-47) 38.2 % 09/08/25, 04:35 Plt Count, (150-450) 270 K/mm3 09/08/25, 04:35 CHEMISTRY Potassium, (3.3-5.1) 3.3 mmol/L Today, 05:20 Sodium, (133-145) 146 mmol/L H Today, 05:20 Magnesium, (1.5-2.2) 1.7 mg/dL 06/15/25, 04:55 Phosphorus, (2.7-4.5) 5.5 mg/dL H 06/15/25, 04:55 BUN, (4-19) 3 mg/dL L Today, 05:20 Creatinine, (0.70-1.20) 0.51 mg/dL L Today, 05:20 Glucose, (70-99) 88 mg/dL Today, 05:20 POC Glucose, (74-106) 87 mg/dL 09/25/24, 06:09 COAG PT, (11.7-14.9) 12.9 SECONDS 09/06/24, 08:09 Urine Test Negative Negative 06/18/25, 17:40 Pre-Assessment Diagnosis/Proposed Procedure Planned Operative Procedure(s): ERCP, stent replacement Anesthesia History Anesthesia History - habilitation worker: Anesthesia History - habilitation worker Hx Hospitalization No 08/29/24 08:48 Any Problems With Anesthesia Yes: nausea 09/09/25 02:39 Cholinesterase deficiency No 09/09/25 02:39 You/Your Family Experience No 09/09/25 02:39 fever (hyperthermia) with Relationship Recent Exposure to Contagious No 09/09/25 02:39 Disease Does patient have nerve No 09/09/25 02:39 stimulator Patient instructed to have No 09/09/25 02:39 device shut off --Does patient have Pacemaker or ICD? When Was Last Pacemaker Check QUESTION #4 FULL TEXT: You/Your Family Experience fever (hyperthermia) with Anesthesia Last Oral Intake Last Oral intake: Last Oral Intake NPO since Meds taken in AM with sips of water? Meds patient instructed to take am of surgery PONV PONV - habilitation worker: PONV - habilitation worker Female HX of Motion Sickness HX of N/V After Surgery Non-Smoker Duration of Surgery greater than 60 minutes Number of Risk Factors PONV Score Height & Weight Height & Weight: Anesthesia: Height & Weight Height 5 ft 1 in 09/07/25 17:09 Weight: 77.564 kg 09/07/25 17:09 Body Mass Index (BMI) 32.3 09/07/25 17:09 Respiratory Assessment Respiratory Assessment - habilitation worker: Respiratory Tract Infection Hx - habilitation worker Hx Respiratory Tract Infection No 09/09/25 02:39 STOP Sleep Apnea STOP Sleep Apnea - habilitation worker: STOP Sleep Apnea - habilitation worker Hx Hypertension No 09/07/25 17:09 Hx Sleep Apnea No 09/07/25 17:09 CPAP No 09/07/25 17:09 BIPAP Do you snore loudly (louder No 09/07/25 17:09 than talking or can be heard Do you often feel tired/ No 09/07/25 17:09 fatigued/ sleepy during daytime? Has anyone observed you stop No 09/07/25 17:09 breathing during sleep? STOP Results Negative 09/07/25 17:09 QUESTION #5 FULL TEXT : Do you snore loudly (louder than talking or can be heard through closed doors)? Tobacco Use History Tobacco Use History - habilitation worker: Tobacco Use History - habilitation worker Tobacco Use Smoking Status Light Smoker (<10/day) 09/07/25 17:30 Hx Tobacco Use Yes 09/07/25 17:09 Years Smoking Packs Smoked per Day Smoking Cessation Date was within the last 15 years Hx Smoking Cessation Date Hx Smoking Cessation Counseling Hematologic Medial History Hematologic Hx - habilitation worker: Hematologic Medical Hx - director digital advertising Hx of Blood Transfusion No 09/07/25 17:09 Hx of Transfusion in last 3 No 09/07/25 17:09 Months Date of Last Transfusion (if within last 3 months) Ever experience any problems No 09/07/25 17:09 with transfusion(s)? Specify any problems Hx of Preganancy in last 3 No 09/07/25 17:09 Months Nurse Filling Out Transfusion [facility] 09/07/25 17:09 & Questions: Date: 09/07/25 09/07/25 17:09 Time: 17:15 09/07/25 17:09 Patient unable to answer at this time (ie. confused, unrespo /Reproduction History /Reproductive History - habilitation worker: /Reproductive Hx- habilitation worker Hx Now No 09/09/25 02:39 Gestational Age (in weeks): EDC: Hx Hx Para Hx Section SAB No 09/09/25 02:39 Does the father of the baby or his family experience fever w Father of the baby Malignant Hypertension history comment Active Medications Active Medications: Current Medications Generic Name Dose Route Start Last Admin Trade Name Freq PRN Reason Stop Dose Admin Acetaminophen 650 mg 09/07/25 17:23 09/08/25 04:58 Acetaminophen 325 Mg Tablet PO 650 mg Q6H PRN PRN Administration Pain 1-10 Or Fever>100.7 Hydromorphone HCl 0.5 mg 09/07/25 17:25 09/09/25 05:07 Hydromorphone 0.5 Mg/0.5 Ml Syringe IV 0.5 mg Q3H PRN PRN Administration Pain Score 6-10 Sodium Chloride 250 mls @ 15 mls/hr 09/07/25 17:21 IV .[id number] PRN Saline Flush Sodium Chloride 250 mls @ 15 mls/hr 09/07/25 17:21 IV .[id number] PRN Additional IVPB Infusion Lactated Ringer's 1,000 mls @ 150 mls/hr 09/07/25 19:00 09/09/25 05:07 IV 150 mls/hr .Q6H40M ANIA Administration Loratadine 10 mg 09/08/25 10:00 09/08/25 10:16 Loratadine 10 Mg Tablet PO 10 mg DAILY ANIA Administration Melatonin 3 mg 09/07/25 22:00 09/08/25 21:07 Melatonin 3 Mg Tablet PO 3 mg QHS ANIA Administration Metoclopramide HCl 10 mg 09/08/25 00:00 09/09/25 05:09 Metoclopramide 10 Mg/2 Ml Vial IV 10 mg Q6 ANIA Administration Morphine Sulfate 30 mg 09/07/25 22:00 09/08/25 21:07 Morphine Sr 15 Mg Tablet PO 30 mg BID ANIA Administration Ondansetron HCl 4 mg 09/07/25 17:23 09/07/25 17:54 Ondansetron 4 Mg/2 Ml Vial IV 4 mg Q8H PRN PRN Administration NAUSEA/VOMITING Oxycodone HCl 5 mg 09/07/25 17:26 09/08/25 04:58 Oxycodone 5 Mg Tablet PO 5 mg Q4H PRN PRN Administration Pain Score 4-10 Pancrelipase 3 cap 09/07/25 22:00 09/08/25 21:[address] Creon [address] Capsule PO Not Given BID ANIA Pantoprazole Sodium 40 mg 09/08/25 10:00 09/08/25 10:16 Pantoprazole Sodium 40 Mg Tablet PO 40 mg DAILY ANIA Administration Prochlorperazine Maleate 25 mg 09/07/25 18:53 Prochlorperazine 25 Mg Suppos. RC BID PRN PRN NAUSEA/VOMITING Rivaroxaban 2.5 mg 09/07/25 22:00 09/08/25 21:08 Rivaroxaban 2.5 Mg Tablet PO Not Given BID ANIA Scopolamine HBr 1 patch 09/07/25 19:00 09/07/25 21:55 Scopolamine 1mg/72hr Patch TD 1 patch Q3D ANIA Administration Senna 1 tablet 09/07/25 22:00 09/08/25 21:07 Senna Tablet PO 1 tablet BID ANIA Administration Senna/Docusate Sodium 2 tablet 09/07/25 22:00 09/08/25 21:07 Senna/Docusate Sodium 1 Tablet PO 2 tablet BID ANIA Administration Sodium Chloride 10 - 40 ml 09/07/25 17:21 09/08/25 17:55 0.9% Saline Lock 10 Ml Syringe IV 20 ml UD PRN Administration SALINE FLUSH Sucralfate 1 gm 09/07/25 18:00 09/08/25 21:07 Sucralfate 1 Gm Tablet PO 1 gm 4X/DAY ANIA Administration PFSH Medical History Post-menopausal Wears glasses Anxiety Arthritis Easy bruising Migraine headache Shortness of breath on exertion Smoker History of edema History of pain when walking Home Medications ?Medication ?Instructions ?Recorded ?Last Taken ?Type cholecalciferol (vitamin D3) 25 25 mcg PO DAILY 08/29/24 09/24/24 History mcg (1,000 unit) capsule (Vitamin D3) loratadine 10 mg capsule 10 mg PO DAILY 08/29/24 09/20/24 History melatonin 3 mg capsule 3 mg PO QHS 08/29/24 Unknown History sumatriptan succinate 50 mg tablet 50 mg PO PRN PRN migraine headache 08/29/24 Unknown History omeprazole 20 mg capsule,delayed 40 mg PO DAILY 06/15/25 Unknown History release sucralfate 1 gram tablet 1 g PO 4X/DAY #180 tabs 06/15/25 Unknown Rx B-complex with vitamin C 1 cap PO QDAY 06/19/25 Unknown History ojmqky-lpstzwlq-zhfotlq 2 cap PO BID #90 caps 06/19/25 Unknown Rx (pork)36,000-114,000-180k unit capsule,del rel (Creon) baurrc-iayrwlyu-mcbrimd(pork) 1 cap PO QAC #120 caps 06/21/25 Unknown Rx 40,000-126,000-168k unit capsule,del rel (Zenpep) Allergy/AdvReac Type Severity Reaction Status Date / Time No Known Allergies Allergy Verified 06/18/25 16:13 Family History Mother Arthritis Thyroid disorder Father Cancer Grandfather Cancer CVA (cerebral vascular accident) Surgical History Hx of total knee arthroplasty Hx of arthroscopic knee surgery History of endometrial ablation History of ankle surgery History of carpal tunnel surgery of right wrist Hx of foot surgery Hx of tubal ligation Social History Smoking Status: Light Smoker (<10/day) alcohol intake: never substance use type: does not use caffeine: Yes what type of physical activity do you participate in: other frequency: 1-2 times per week Review of Systems (Anesthesia) ROS Narrative System reviewed and no additional complaints, except as documented.
--- NOTE | 2025-09-09 08:00 | RAD_ITS ---
PROCEDURE: ERCP BILIARY/PANCREAS 09/09/2025 REASON FOR EXAM: ERCP. TECHNIQUE: Procedure Code: RADERCP Modality: DX Procedure: ERCP BILIARY/PANCREAS COMPARISON: Ultrasound exam on 06/18/2025. FINDINGS: Fluoroscopy time: 99.5 seconds. 11 images were obtained. Total radiation dose: 22.65 mGy. ERCP was performed under fluoroscopic guidance. CBD stent has been inserted. Dilated biliary tree. RAD/ERCP Biliary/Pancreas IMPRESSION: ERCP was performed under fluoroscopic guidance. CBD stent has been inserted. Dilated biliary tree. [facility]
[2025-09-09] MEDS: fentaNYL 100 MCG/2 ML Ampul IV (08:07)
[2025-09-09] MEDS: Lidocaine 1% (5 ml sdv) 5 ML Vial 3 ML IV (08:07)
--- NOTE | 2025-09-09 08:20 | FLU_PTH ---
PATIENT: CORIE HERNANDEZ LOC: MS3 U#:[id number] AGE/SX: 55/F ROOM: MS317 RE09/07/[address]: Dr. Tika Casey DO : 1970 BED: 1 DIS: 09/09/2025 SPEC #: [id number] RECD: 09/09/25 09:06 STATUS: AMBER REAugie #: [id number] LETY: 09/09/25 08:[address]: Tika Casey DEPT: CYTOLOGY RECD BY: Mar Doherty ENTERED: 09/10/25 07:54 SP TYPE: Fluid OTHR DR: DO Dr. Killian Tracy DO Dr. Scott Brown, MD Tissues: Bile duct, NOS Procedures: Special Stain Group II Surgery Specimen Level IV Cytospin Fluid HEADER OPERATION: ERCP PRE-OP DIAGNOSIS: Mass of head of pancreas, abdominal pain, jaundice, transaminitis, hyperbilirubinemia TISSUE SUBMITTED: A- Biliary stent for cytology DIAGNOSIS CYTOLOGY A. Biliary stent, ERCP (cytospin, cellblock): - Nondiagnostic acellular specimen. - Bile pigment/crystals present. CYTOLOGY STUDY Slides are reviewed. CYTOLOGY GROSS A. Received is 10cm bluish-black stent with 0.5 ml of yellowish-brown thick material labeled with the patient's name and and designated per the requisition as Biliary stent. Submitted for cytology and cell block preparation. 09/10/2025 CPT: 22407,98530
--- NOTE | 2025-09-09 09:12 | PCM.POST.ANE ---
Anesthesia: Postop Eval I Current Vital Signs Temperature: 98 F Pulse Rate: 68 Blood Pressure: 116/64 Respiratory Rate: 16 Pulse Ox: 96 Oxygen Delivery Method: Room Air Assessment Airway patent: Yes Spontaneous unlabored respirations: Yes Mental status: Awake and Calm nausea: No Vomiting: No Anesthesia Complication: No Fluid Hydration Crystalloid volume administer (ml): 250 Total IV fluid infused: 250 Progress Note Anesthesia document: Postop Eval 1 completed: Yes
--- NOTE | 2025-09-09 09:15 | PCM.POSTANE2 ---
Anesthesia Postop Eval I Sum Postop Eval Completion status Anesthesia document: Postop Eval 1 completed: Yes Anesthesia Postop Eval I Summary Anesthesia Postop Eval I Summary: Anesthesia Postop Eval I: Assessment Summary Airway patent Yes 09/09/25 09:13 Spontaneous unlabored Yes 09/09/25 09:13 respirations Mental status Awake,Calm 09/09/25 09:13 nausea No 09/09/25 09:13 Vomiting No 09/09/25 09:13 Anesthesia Postop Eval I: Fluid Summary Crystalloid volume administer 250 09/09/25 09:13 (ml) Colloids volume administered ( ml) Blood Product volume administered (ml) Total IV fluid infused 250 09/09/25 09:13 Anesthesia Postop Eval I: Summary Notes Anesthesia Complication No 09/09/25 09:13 Anesthesia Complication Comment: Post-operative progress note Anesthesia: Postop Eval II Evaluation Mental status: Awake and Calm Pain Level: 0 nausea: No Vomiting: No
--- NOTE | 2025-09-09 09:15 | PCM.PN.BLA ---
Progress Note Follow-up in office: [4 weeks] Okay to restart [Xarelto] on [09/09/2025] New GI related medications for discharge: [Ciprofloxacin 500 mg p.o. twice daily x 2 weeks and probiotic 1 p.o. twice daily] Follow-up procedures needed: [None] Physical Exam Const alert, oriented x3, no apparent distress and healthy appearing General Appearance: cooperative GI normal to inspection, nondistended, normoactive bowel sounds, soft to palpation, non-tender and non-distended Percussion: normal to percussion Rectal Exam: deferred Assessment & Plan Assessment/Plan (1) Hyperbilirubinemia: (2) Transaminitis: (3) Mass of head of pancreas: (4) Jaundice: PLAN: Continue scopolamine patch 1.5 mg p.o. every 3 days, start ciprofloxacin and probiotic and continue Reglan and 10 mg p.o. every 8 hours with as needed Compazine 25 mg per rectum Visit Charges Inpatient E&M: 90547 Subs Hosp L3
--- NOTE | 2025-09-09 09:16 | OP.PROVAT_ITS ---
09/09/2025 Joshua Yuan Re : ERCP procedure for Kevin Yuan This procedure was performed on Tuesday, September 09, 2025. My impressions and recommendations are as follows: Impressions : - A single localized biliary stricture was found in the lower third of the main bile duct. The stricture was malignant appearing. - The entire main bile duct, left main hepatic duct, right and left intrahepatic branches (but not the right or left hepatic ducts), common bile duct and common hepatic duct were dilated, acquired. - The patient has had a cholecystectomy. - Choledocholithiasis was found. Complete removal was accomplished by biliary sphincterotomy and balloon extraction. - One stent was removed from the biliary tree. - A biliary sphincterotomy was performed. - The biliary tree was swept. - One covered metal stent was placed into the common bile duct. Recommendations : Cipro 500 mg p.o. twice daily x 2 weeks and probiotic twice daily x 4 weeks My findings are described in the full procedure note, which is enclosed. If I can be of further assistance, please feel free to contact me at . Sincerely, Killian Wallace, 09/09/2025 9:15:24 AM This report has been signed electronically.
--- NOTE | 2025-09-09 09:16 | OP.ERCP_ITS ---
Patient Name: Kevin Lugo Procedure Date: 09/09/2025 7:07 AM Date of : 1970 Age: 55 Procedure: ERCP Indications: Malignant tumor of the head of pancreas, Stent change Providers: Killian Wallace DO Referring MD: Maynor Blanton Do Medicines: Monitored Anesthesia Care Patient Profile: This is a 55 year old female. Refer to note in patient chart for documentation of history and physical. Patient has symptoms of acute right upper quadrant abdominal pain and acute jaundice. Complications: No immediate complications. Procedure: Pre-Anesthesia Assessment: - Prior to the procedure, a History and Physical was performed, and patient medications and allergies were reviewed. The patient is competent. The risks and benefits of the procedure and the sedation options and risks were discussed with the patient. All questions were answered and informed consent was obtained. Patient identification and proposed procedure were verified by the physician in the pre-procedure area. Mental Status Examination: alert and oriented. Airway Examination: normal oropharyngeal airway and neck mobility. Respiratory Examination: clear to auscultation. CV Examination: normal. Prophylactic Antibiotics: The patient does not require prophylactic antibiotics. Prior Anticoagulants: The patient has taken no anticoagulant or antiplatelet agents. ASA Grade Assessment: II - A patient with mild systemic disease. After reviewing the risks and benefits, the patient was deemed in satisfactory condition to undergo the procedure. The anesthesia plan was to use monitored anesthesia care (MAC). Immediately prior to administration of medications, the patient was re-assessed for adequacy to receive sedatives. The heart rate, respiratory rate, oxygen saturations, blood pressure, adequacy of pulmonary ventilation, and response to care were monitored throughout the procedure. The physical status of the patient was re-assessed after the procedure. After obtaining informed consent, the scope was passed under direct vision. Throughout the procedure, the patient's blood pressure, pulse, and oxygen saturations were monitored continuously. The Duodenoscope was introduced through the mouth, and advanced to the duodenum and used to inject contrast into the bile duct. The ERCP was accomplished without difficulty. The patient tolerated the procedure well. Scope In: 8:29:05 AM Scope Out: 8:46:11 AM Total Procedure Duration Time 0 hours 17 minutes 6 seconds Findings: A biliary stent was visible on the casing splitter film. The esophagus was successfully intubated under direct vision. The scope was advanced to a normal major papilla in the descending duodenum without detailed examination of the pharynx, larynx and associated structures, and upper GI tract. The upper GI tract was grossly normal. One stent was removed from the biliary tree using a snare and sent for cytology. The stent was found to be occluded via the water column test. The bile duct was deeply cannulated with the short-nosed traction sphincterotome. Contrast was injected. I personally interpreted the bile duct images. Ductal flow of contrast was adequate. Image quality was adequate. Contrast extended to the entire biliary tree. Opacification of the entire opacified area, left main hepatic duct, right main hepatic duct, left and right hepatic ducts and all intrahepatic branches and entire biliary tree was successful. The maximum diameter of the ducts was 12 mm. The lower third of the main bile duct contained a single localized stenosis 6 mm in length. The entire opacified area, main bile duct, common bile duct, common hepatic duct, left main hepatic duct and right and left intrahepatic branches (but not the right or left hepatic ducts) were diffusely dilated, acquired. The largest diameter was 5 mm. A cholecystectomy had been performed. The upper third of the main bile duct contained one stone, which was 6 mm in diameter. A long 0.025 inch Jagwire was passed into the biliary tree. A 5 mm biliary sphincterotomy was made with a traction (standard) sphincterotome using ERBE electrocautery. There was no post-sphincterotomy bleeding. The biliary tree was swept with a 12 mm balloon starting at the bifurcation. All stones were removed. One 10 mm by 6 cm covered metal stent was placed 5 cm into the common bile duct. Bile flowed through the stent. The stent was in good position. Impression: - A single localized biliary stricture was found in the lower third of the main bile duct. The stricture was malignant appearing. - The entire main bile duct, left main hepatic duct, right and left intrahepatic branches (but not the right or left hepatic ducts), common bile duct and common hepatic duct were dilated, acquired. - The patient has had a cholecystectomy. - Choledocholithiasis was found. Complete removal was accomplished by biliary sphincterotomy and balloon extraction. - One stent was removed from the biliary tree. - A biliary sphincterotomy was performed. - The biliary tree was swept. - One covered metal stent was placed into the common bile duct. Recommendation: Cipro 500 mg p.o. twice daily x 2 weeks and probiotic twice daily x 4 weeks Procedure Code(s): --- Professional --- 03209, Endoscopic retrograde cholangiopancreatography (ERCP); with removal and exchange of stent(s), biliary or pancreatic duct, including pre- and post-dilation and guide wire passage, when performed, including sphincterotomy, when performed, each stent exchanged [id number], Endoscopic retrograde cholangiopancreatography (ERCP); with removal of calculi/debris from biliary/pancreatic duct(s) 07293, 26, Endoscopic catheterization of the biliary ductal system, radiological supervision and interpretation CPT copyright 2021 [employer]. All rights reserved. The codes documented in this report are preliminary and upon health aide review may be revised to meet current compliance requirements. Killian Wallace DO 09/09/2025 9:15:24 AM This report has been signed electronically. Number of Addenda: 0 Note Initiated On: 09/09/2025 7:07 AM
[2025-09-09] MEDS: morphine SR 15 MG Tablet 30 MG PO (10:19)
[2025-09-09] MEDS: 0.9% Saline Lock 10 ML Syringe IV ×2 (10:19→12:37)
[2025-09-09] MEDS: Creon 24,000 unit DR Capsule 3 CAP PO (11:24)
[2025-09-09] MEDS: Lactobacillis Acidophilus 1 CAP PO (12:31)
--- NOTE | 2025-09-09 13:58 | NURSING ---
information from green sheet faxed to [facility] and agency called. bedside aware.
== END 2025-09-09 14:08 | disposition hospice, home (50) ==
PROVIDERS: Internal Medicine Gastroenterology; Admitting Provider Hospitalist; PCP Family Medicine; Referring Provider Hospitalist; Visit Provider Internal Medicine
PROC: (CPT 43260; principal; 2025-09-09 08:00)
DX: C25.0 Malignant neoplasm of head of pancreas (principal); C79.9 Secondary malignant neoplasm of unspecified site; E87.6 Hypokalemia; K21.9 Gastro-esophageal reflux disease without esophagitis; K76.9 Liver disease, unspecified; Z68.32 Body mass index [BMI] 32.0-32.9, adult; Z86.711 Personal history of pulmonary embolism; E66.9 Obesity, unspecified; R74.01 Elevation of levels of liver transaminase levels; R91.1 Solitary pulmonary nodule; Z92.21 Personal history of antineoplastic chemotherapy; K80.51 Calculus of bile duct without cholangitis or cholecystitis with obstruction; K83.8 Other specified diseases of biliary tract; R53.83 Other fatigue; Z86.718 Personal history of other venous thrombosis and embolism; Z79.899 Other long term (current) drug therapy; F17.200 Nicotine dependence, unspecified, uncomplicated; Z66 Do not resuscitate; E80.6 Other disorders of bilirubin metabolism
CPT/HCPCS: 43264; 43276; 36415; 74330; 76000; 80053; 85025; 88108; 88305; 88313; 93005; 96361; 96374; 96375; 96376; 99221; 99406; C1874; A4216; G0378; G0379; J0744; J2405